=== PATIENT | female | born 1955 | race Caucasian/White ===

== ENCOUNTER 2016-09-16 05:36 | Inpatient (IN) | payer OTHER ==
[~2016-09-16] VITALS: Ht 172.7 cm; Wt 84.5 kg
[~2016-09-16 05:36] MED LIST: ALPR0.25 PO; AMT25 PO; ASPI-390 PO; CITA40TA12 PO; CLIN300C2 PO; HYDR-5688 PO; IBUP-1459 PO; MULT-160 PO; PRED10TA PO; PROM25TA PO
[2016-09-16] MEDS ORDERED: SODIUM CHLORIDE 0.9% 1000ML 1,000 ML IV STA (05:56)
[2016-09-16] MEDS ORDERED: SODIUM CHLORIDE 0.9% 500ML 500 ML IV STA ×2 (05:56→06:38)
[2016-09-16] MEDS ORDERED: SODIUM CHLORIDE 0.9% 1000ML 1,000 ML IV SCH (06:00)
[2016-09-16] MEDS: PANTOprazole INJ 40 MG in DEXTROSE 5% 100ML IV SCH ×4 (06:13→22:15)
[2016-09-16 06:14] LABS: ISTAT CREATININE 1.1 mg/dl (0.6-1.3); ISTAT IONIZED CALCIUM 1.2 mmol/l (1.12-1.32)
[2016-09-16] MEDS ORDERED: PANTOprazole INJ 80 MG in DEXTROSE 5% 100ML IV SCH (06:15)
--- NOTE | 2016-09-16 06:15 | EMERGENCY ROOM VISIT NOTE ---
ED Visit Note First contact with patient: 05:35 Patient seen by the physician advertising assistant manager, seen primarily by me, CT reviewed agree with workup currently for an alteration in mental status in this patient who was last seen normal 12 hours prior. Due to that timeframe and the unknown etiology of the alteration mental status patient is not currently a TPA candidate. We will continue to evaluate for alteration in mental status with admission for the same Problem List Medical Problems: (1) History of - section Status: Resolved (2) Migraine Status: Chronic Current/Historical Medications Scheduled Amitriptyline Hcl (Elavil *), 25 TABLET PO QHS Citalopram Hydrobromide (Celexa), 40 MG PO HS Clindamycin Hcl (Cleocin), 300 MG PO QID Hydrocodone/Acetaminophen 5MG/325MG ([place] 5MG/325MG), 1 TABLET PO Q4H Ibuprofen (Motrin), 800 MG PO TID Multiple Vitamins W/ Calcium (One-A-Day Womens Formula), 1 TAB PO DAILY Prednisone Tab (Prednisone), 10 MG PO UD Promethazine (Phenergan), 25 MG PO Q4-6HR PRN Scheduled PRN Alprazolam (Xanax), 0.125-0.25 MG PO for Migraine Crlipjc-Iugykhpaneydc-Jhxghzja (Excedrin Migraine), 1-2 TABS PO DAILY PRN for Migraine Allergies Coded Allergies: Penicillins (Verified Allergy, Mild, SWELLING BREATHING STOPS, 02/13/16) Acetazolamide (Unverified Allergy, Unknown, RASH/HIVES, 02/13/16) Molds and Smuts (Verified Allergy, Unknown, UNKNOWN, 02/13/16) Sumatriptan (Verified Adverse Reaction, Unknown, flushing,heart racing, ) Vital Signs Date Time Temp Pulse Resp B/P (MAP) Pulse Ox O2 Delivery O2 Flow Rate FiO2 09/16/16 06:00 94 Room Air 09/16/16 06:00 94 Room Air 09/16/16 05:49 36.5 104 22 180/100 94 Room Air Laboratory Results Test 09/16/16 05:23 09/16/16 05:56 09/16/16 06:00 09/16/16 06:01 Creatine Kinase MB Ratio (0-3.0) Bedside Hemoglobin 15.0 g/dl (12.0-16.0) Bedside Hematocrit 44 % (37-47) Bedside Sodium 140 mEq/L (135-144) Bedside Potassium 3.9 mEq/L (3.3-5.0) Bedside Chloride 102 mEq/L (101-112) Bedside Total CO2 23 mEq/l (24-31) Anion Gap 20.0 mmol/L (16-25) Bedside Blood Urea Nitrogen 16 mg/dl (7-18) Bedside Creatinine 1.1 mg/dl (0.6-1.3) Bedside Glucose (other) 134 mg/dl (70-99) Bedside Ionized Calcium (Anne-Marie) 1.20 mmol/l (1.12-1.32) Departure Information Referrals Hany Glaser M.D. (PCP) Patient Instructions [facility]
[2016-09-16 06:16] LABS: COMPLETE YES; HEMATOCRIT 41.1 % (37-47); IG% 0.2 %; LYMPH % 6.9 %; LYMPH ABS # 0.68 K/uL (1.2-3.4); MEAN CORPUSCULAR HEMOGLOBIN 33.2 pg (25-34); MEAN CORPUSCULAR HGB CONC 34.5 g/dl (32-36); MEAN PLATELET VOLUME 9.7 fL (7.4-10.4); NEUT % 86.9 %; PLATELET COUNT 221 K/uL (130-400); RED BLOOD COUNT 4.28 M/uL (4.2-5.4); WHITE BLOOD COUNT 9.86 K/uL (4.8-10.8)
[2016-09-16] MEDS ORDERED: METRONIDAZOLE 500MG / 100ML NSS IV STA (06:16)
[2016-09-16] MEDS ORDERED: LEVAQUIN 750MG / 150ML D5W IV STA (06:16)
[2016-09-16] MEDS ORDERED: NALOXONE HCL 0.4 MG/1 ML VIAL/CARP IV STA (06:27)
[2016-09-16 06:28] LABS: ALT/SGPT 18 U/L (12-78); AST/SGOT 10 U/L (15-37); BLOOD UREA NITROGEN 16 mg/dl (7-18); BUN/CREATININE RATIO 11.4 (10-20); CALCIUM 9.2 mg/dl (8.5-10.1); CARBON DIOXIDE 22 mmol/L (21-32); CHLORIDE 105 mmol/L (98-107); GLUCOSE 134 mg/dl (70-99); MAGNESIUM 2.2 mg/dl (1.8-2.4); SODIUM 140 mmol/L (136-145)
[2016-09-16 06:30] LABS: ACETAMINOPHEN < 2 ug/ml (10-30)
[2016-09-16 06:36] LABS: ALKALINE PHOSPHATASE 105 U/L (45-117); CKMB/CK RATIO 1.7 (0-3.0); THYROID STIMULATING HORMONE 0.476 uIu/ml (0.300-4.500)
[2016-09-16 06:41] LABS: INR 0.9 (0.9-1.1); PROTHROMBIN TIME (PATIENT) 10.1 SECONDS (9.0-12.0)
[2016-09-16] MEDS ORDERED: IBUP200C11 PO (07:02)
[2016-09-16] MEDS ORDERED: AMIT25TA9 PO (07:04)
[2016-09-16] MEDS ORDERED: MIRT30TA2 PO (07:06)
[2016-09-16 07:12] LABS: VEN BLD GAS O2 SATURATION 65.1 %; VEN BLOOD GAS BASE EXCESS -3.2 mmol/L
--- NOTE | 2016-09-16 07:35 | DIAGNOSTIC IMAGING REPORT ---
CHEST ONE VIEW PORTABLE CLINICAL HISTORY: Chest pain. Altered mental status. COMPARISON STUDY: Chest CT September 25, 2015. FINDINGS: There is mild elevation of the right hemidiaphragm. No pneumothorax or pleural effusion is present. There is no consolidation. Cardiomediastinal silhouette is normal. Mild interstitial thickening may be chronic. IMPRESSION: 1. Mild interstitial thickening, likely chronic. 2. Mild elevation of the right hemidiaphragm. Electronically signed by: Ildefonso Alarcon M.D. 09/16/2016 7:34 AM Dictated Date/Time: 09/16/2016 7:31 AM
[2016-09-16 07:37] LABS: URINE APPEARANCE CLOUDY (CLEAR); URINE BILIRUBIN NEG (NEG); URINE COLOR YELLOW; URINE NITRITE NEG (NEG); URINE SPECIFIC GRAVITY 1.016 (1.000-1.030); UROBILINOGEN NEG (NEG)
[2016-09-16 07:38] LABS: MANUAL MICROSCOPIC REQUIRED? NO; REVIEW REQ? YES
[2016-09-16 07:52] LABS: ZZURINE CULT IF INDIC CATH YES
[2016-09-16 07:53] LABS: BENZODIAZEPINE, URINE NEG (NEG); COCAINE,URINE NEG (NEG); PHENCYCLIDINE, URINE POS (NEG)
[2016-09-16 08:25] VITALS: O2SAT 95; Ht 172.7 cm; Wt 84.5 kg
[2016-09-16] MEDS ORDERED: HALOPERIDOL LACTATE 5 MG/ML 1 ML VIAL IM PRN (08:30)
[2016-09-16] MEDS ORDERED: PHARMACIST DISCHARGE MED REC CONSULT PRN (08:30)
[2016-09-16] MEDS ORDERED: ONDANSETRON INJ 2 MG/ML 2 ML VIAL IV PRN (08:30)
[2016-09-16] MEDS ORDERED: HALOPERIDOL LACTATE 5 MG/ML 1 ML VIAL ONE (08:34)
--- NOTE | 2016-09-16 08:54 | DIAGNOSTIC IMAGING REPORT ---
CT OF THE HEAD WITHOUT CONTRAST CLINICAL HISTORY: Altered mental status. COMPARISON STUDY: Head CT January 22, 2008. CT DOSE: 614.27 mGy.cm TECHNIQUE: Helical axial images of the head were obtained without IV contrast. Automated exposure control was utilized for the study. FINDINGS: No acute intracranial hemorrhage, midline shift or mass effect is present. Evaluation is mildly compromised due to streak artifact from a left earring. Ventricular system is normal. Basilar cisterns are patent. There are no extra-axial collections. There are no findings to suggest acute dural sinus thrombosis or acute territorial infarct. There is a suspected mucous retention cyst within the left maxillary sinus. There are a few opacified left mastoid air cells. There are no significant calvarial abnormalities. IMPRESSION: No acute intracranial findings. Electronically signed by: Ildefonso Alarcon M.D. 09/16/2016 8:53 AM Dictated Date/Time: 09/16/2016 8:50 AM
[2016-09-16 08:55] VITALS: O2SAT 95
--- NOTE | 2016-09-16 08:58 | History and Physical ---
History & Physical Date & Time of Service: Sep 16, 2016 at 08:40 Chief Complaint: Altered Mental Status Primary Care Physician: Hany Glaser M.D. History of Present Illness Source: spouse, clinic records 61 year old female with history of Chronic Migraine, Depression, presenting with altered mental status noted early this morning. Patient follows with Dr. Glaser for PCP. History obtained from Al at the bedside as patient was confused. Per , patient usually has migraine headaches in the afternoon for which she takes Advil Migraine. Yesterday afternoon, came home from work to have lunch with the patient. She was apparently doing ok at that time. At 2:30pm, patient called her as she was feeling she was having a panic attack. advised her to take Xanax if she has any. He then came home in the evening and noted that the patient was sound asleep. At 430am this morning, heard the patient moaning, calling out from her room. He found her staring, eyes wide open, with dried vomit around her mouth and neck, with some tinge of blood. She was slurring her words and was disoriented. No facial drooping, patient was moving extremities equally. Patient noted to report pain on her right neck and right shoulder. He then summoned the EMS. At the ER, CT head negative for acute process. CXR also unrevealing. She was given Protonix drip, Levaquin, IV fluids. On my exam, patient was awake, but very irritable, occasionally cursing, uncoooperative. Declines full physical exam. She is oriented to person and place, not to time. Tangential thought process. Repeatedly says "i need to pee", "get the bed rivers off me". Full ROS cannot be assessed as patient was uncooperative. states he did not notice any other symptoms lately except patient has been having depressive symptoms since their daughter last year. Denies suidical ideations from the patient. Past Medical/Surgical History Medical Problems: (1) History of - section Status: Resolved (2) Migraine Status: Chronic Family History Cancer Diabetes mellitus Heart disease Hypertension Kidney disease Kidney stones Social History Smoking Status: Never Smoker Alcohol Use: none Drug Use: marijuana (occasional) Marital Status: Housing status: lives with family Occupational Status: employed Immunizations History of Influenza Vaccine: N/A History of Tetanus Vaccine?: Yes History of Pneumococcal: No History of Hepatitis B Vaccine: Yes Multi-Drug Resistant Organisms History of MDRO: No Allergies Coded Allergies: Penicillins (Verified Allergy, Mild, SWELLING BREATHING STOPS, 02/13/16) Acetazolamide (Unverified Allergy, Unknown, RASH/HIVES, 02/13/16) Molds and Smuts (Verified Allergy, Unknown, UNKNOWN, 02/13/16) Sumatriptan (Verified Adverse Reaction, Unknown, flushing,heart racing, ) Home Medications Scheduled Amitriptyline Hcl (Elavil), 25 MG PO HS Citalopram Hydrobromide (Celexa), 40 MG PO HS Hydrocodone/Acetaminophen 5MG/325MG ([place] 5MG/325MG), 1 TABLET PO Q4H Mirtazapine Soltab (Remeron Soltab), 30 MG PO HS Multiple Vitamins W/ Calcium (One-A-Day Womens Formula), 1 TAB PO DAILY Scheduled PRN Alprazolam (Xanax), 0.25 MG PO TID PRN for Anxiety Ibuprofen (Advil Migraine), 400 MG PO Q8 PRN for Pain Promethazine (Phenergan), 25 MG PO Q6H PRN for Nausea or Vomiting Review of Systems cannot be assessed as patient declines Physical Exam Vital Signs Date Time Temp Pulse Resp B/P (MAP) Pulse Ox O2 Delivery O2 Flow Rate FiO2 09/16/16 07:56 87 22 140/85 97 Room Air 09/16/16 07:38 89 20 147/78 95 Room Air 09/16/16 07:18 86 18 135/75 92 Room Air 09/16/16 07:00 88 16 134/69 93 Room Air 09/16/16 06:17 96 22 151/81 93 Room Air 09/16/16 06:00 94 Room Air 09/16/16 06:00 94 Room Air 09/16/16 05:50 104 09/16/16 05:49 36.5 104 22 180/100 94 Room Air General Appearance: WD/WN, no apparent distress, + pertinent finding (restless , uncooperative) Head: normocephalic, atraumatic Eyes: normal inspection, PERRL, EOMI, sclerae normal ENT: normal ENT inspection, hearing grossly normal, + pertinent finding (dry oral mucosa) Neck: + pertinent finding (patient declined) Respiratory/Chest: + pertinent finding (declined) Cardiovascular: + pertinent finding (declined) Abdomen/GI: + pertinent finding (declined) Back: + pertinent finding (declined) Extremities/Musculoskelatal: + pertinent finding (declined) Neurologic/Psych: job setter honing II-XII nml as tested, no motor/sensory deficits, alert, + pertinent finding (not oriented; irritable) Skin: normal color Diagnostics Laboratory Results Results Past 24 Hours Test 09/16/16 05:23 09/16/16 06:00 09/16/16 06:01 09/16/16 06:12 Range/Units Sodium Level 140 136-145 mmol/L Potassium Level 4.0 3.5-5.1 mmol/L Chloride Level 105 98-107 mmol/L Carbon Dioxide Level 22 21-32 mmol/L Anion Gap 13.0 20.0 16-25 mmol/L Blood Urea Nitrogen 16 7-18 mg/dl Creatinine 1.40 0.60-1.20 mg/dl Est Creatinine Clear Calc Drug Dose 47.7 ml/min Estimated GFR () 46.9 Estimated GFR (Non- 40.5 BUN/Creatinine Ratio 11.4 10-20 Random Glucose 134 70-99 mg/dl Calcium Level 9.2 8.5-10.1 mg/dl Magnesium Level 2.2 1.8-2.4 mg/dl Total Bilirubin 0.5 0.2-1 mg/dl Direct Bilirubin < 0.1 0-0.2 mg/dl Aspartate Amino Transf (AST/SGOT) 10 15-37 U/L Alanine Aminotransferase (ALT/SGPT) 18 12-78 U/L Alkaline Phosphatase 105 45-117 U/L Total Creatine Kinase 86 26-192 U/L Creatine Kinase MB 1.5 0.5-3.6 ng/ml Creatine Kinase MB Ratio 1.7 0-3.0 Troponin I < 0.015 0-0.045 ng/ml Total Protein 8.1 6.4-8.2 gm/dl Albumin 4.0 3.4-5.0 gm/dl Lipase 299 73-393 U/L Thyroid Stimulating Hormone (TSH) 0.476 0.300-4.500 uIu/ml Salicylates Level 8.2 2.8-20 mg/dl Acetaminophen Level < 2 10-30 ug/ml White Blood Count 9.86 4.8-10.8 K/uL Red Blood Count 4.28 4.2-5.4 M/uL Hemoglobin 14.2 12.0-16.0 g/dL Hematocrit 41.1 37-47 % Mean Corpuscular Volume 96.0 80-100 fL Mean Corpuscular Hemoglobin 33.2 25-34 pg Mean Corpuscular Hemoglobin Concent 34.5 32-36 g/dl Platelet Count 221 130-400 K/uL Mean Platelet Volume 9.7 7.4-10.4 fL Neutrophils (%) (Auto) 86.9 % Lymphocytes (%) (Auto) 6.9 % Monocytes (%) (Auto) 6.0 % Eosinophils (%) (Auto) 0.0 % Basophils (%) (Auto) 0.0 % Neutrophils # (Auto) 8.57 1.4-6.5 K/uL Lymphocytes # (Auto) 0.68 1.2-3.4 K/uL Monocytes # (Auto) 0.59 0.11-0.59 K/uL Eosinophils # (Auto) 0.00 0-0.5 K/uL Basophils # (Auto) 0.00 0-0.2 K/uL RDW Standard Deviation 46.3 36.4-46.3 fL RDW Coefficient of Variation 13.3 11.5-14.5 % Immature Granulocyte % (Auto) 0.2 % Immature Granulocyte # (Auto) 0.02 0.00-0.02 K/uL Prothrombin Time 10.1 9.0-12.0 SECONDS Prothromb Time International Ratio 0.9 0.9-1.1 Activated Partial Thromboplast Time 26.4 21.0-31.0 SECONDS Partial Thromboplastin Ratio 1.0 Ethyl Alcohol mg/dL < 3.0 0-3 mg/dl Bedside Hemoglobin 15.0 12.0-16.0 g/dl Bedside Hematocrit 44 37-47 % Bedside Sodium 140 135-144 mEq/L Bedside Potassium 3.9 3.3-5.0 mEq/L Bedside Chloride 102 101-112 mEq/L Bedside Total CO2 23 24-31 mEq/l Bedside Blood Urea Nitrogen 16 7-18 mg/dl Bedside Creatinine 1.1 0.6-1.3 mg/dl Bedside Glucose (other) 134 70-99 mg/dl Bedside Ionized Calcium (Anne-Marie) 1.20 1.12-1.32 mmol/l Bedside Glucose 127 70-90 mg/dl Test 09/16/16 06:16 09/16/16 06:19 09/16/16 07:00 09/16/16 07:10 Range/Units Bedside Troponin I < 0.030 0-0.045 ng/ml Bedside Prothrombin Time INR 0.9 0.9-1.1 Venous Blood pH 7.38 7.36-7.41 Venous Blood Partial Pressure CO2 37 38.0-50.0 mmHg Venous Blood Partial Pressure O2 32 mmHg Venous Blood HCO3 22 mmol/L Venous Blood Oxygen Saturation 65.1 % Venous Blood Base Excess -3.2 mmol/L Urine Color YELLOW Urine Appearance CLOUDY CLEAR Urine pH 5.0 4.5-7.5 Urine Specific [place] 1.016 1.000-1.030 Urine Protein NEG NEG Urine Glucose (UA) NEG NEG Urine Ketones TRACE NEG Urine Occult Blood NEG NEG Urine Nitrite NEG NEG Urine Bilirubin NEG NEG Urine Urobilinogen NEG NEG Urine Leukocyte Esterase TRACE NEG Urine WBC (Auto) 10-30 0-5 /hpf Urine RBC (Auto) 0-4 0-4 /hpf Urine Hyaline Casts (Auto) 1-5 0-5 /lpf Urine Epithelial Cells (Auto) 10-20 0-5 /lpf Urine Bacteria (Auto) 1+ NEG Urine Renal Epithelial Cells 0-5 /lpf Urine Pathogenic Casts See comments 0 /lpf Urine Opiates Screen POS NEG Urine Methadone, Qualitative NEG NEG Urine Barbiturates NEG NEG Urine Phencyclidine (PCP) Level POS NEG Ur Amphetamine/Methamphetamine NEG NEG MDMA (Ecstasy) Screen POS NEG Urine Benzodiazepines Screen NEG NEG Urine Cocaine Metabolite NEG NEG Urine Marijuana (THC) NEG NEG Microbiology Results 09/16/16 Urine Culture, Received Pending Diagnostic Radiology as per H&P EKG sinus tachycardia, no signs of acute infarct or ischemia Impression Assessment and Plan 61 year old female with history of Chronic Migraine, Depression, presenting with altered mental status noted early this morning. ALTERED MENTAL STATUS EPISODE OF SLURRED SPEECH R/O CVA CT head negative MRI brain ordered will consult Neurology R/O SEIZURE check EEG seizure precautions POSSIBLE DELIRIUM FROM MEDICATIONS Urine Drug Screen: (+) for opiate, PCP, MDMA (patient takes Citalopram, Mirtazipine, Amitryptiline) Haldol PRN IV fluids, HOLD psychogenic meds will consult Psych for Depression R/O ASPIRATION CT chest NPO for now R/O GI BLEED monitor Hg Protonix drip IV fluids ACUTE RENAL FAILURE IV NSS monitor crea MIGRAINE HEADACHE, CHRONIC Neuro consulted DEPRESSION patient has been having difficulty with depressive symptoms since daughter last month no suicidal ideations per patient takes Citalopram, Mirtazipine, Amitryptiline prescribed by PCP will consult Psych DVT PROPH SCDs only until gi bleed ruled out FULL CODE DISPOSITION pending lives at home with VTE Prophylaxis VTE Risk Assessment Done? Y/N: Yes Risk Level: Moderate
[2016-09-16 09:05] VITALS: BP 135/73; PULSE 82; O2SAT 98
[2016-09-16 09:26] LABS: ESTIMATED AVERAGE GLUCOSE 114 mg/dl; HA1C FLAG Normal (Normal)
[2016-09-16] MEDS: SODIUM CHLORIDE 0.9% 1000ML 1,000 ML IV SCH (09:35)
--- NOTE | 2016-09-16 11:15 | DIAGNOSTIC IMAGING REPORT ---
MRI OF THE BRAIN WITHOUT CONTRAST CLINICAL HISTORY: Altered mental status. Evaluate for stroke. COMPARISON STUDY: Head CT September 16, 2016. TECHNIQUE: Utilizing a 1.5 Latasha magnet and dedicated coil, multiplanar, multiecho imaging of the brain was performed without IV contrast. The patient was unable to complete the entire exam. FINDINGS: There are no areas of restricted diffusion. No acute intracranial hemorrhage, midline shift or mass effect is present. Ventricular system is normal for age. Basilar cisterns are patent. There are no extra-axial collections. No intracranial masses identified on this unenhanced examination. A 1.8 cm left maxillary sinus mucous retention cyst or polyp is noted. This was present on head CT of January 22, 2008. A few punctate white matter T2 hyperintense foci suggest minimal small vessel disease. IMPRESSION: 1. No acute intracranial findings. 2. Unremarkable MRI of the brain for age. 3. Patient unable to complete entire MRI although this study is considered diagnostic. Electronically signed by: Ildefonso Alarcon M.D. 09/16/2016 11:14 AM Dictated Date/Time: 09/16/2016 11:11 AM
[2016-09-16] MEDS: ACETAMINOPHEN 325 MG TAB PO PRN (11:20)
[2016-09-16 11:37] VITALS: BP 158/102; PULSE 124; TEMP 36.6
--- NOTE | 2016-09-16 11:40 | DIAGNOSTIC IMAGING REPORT ---
CT OF THE CHEST WITHOUT IV CONTRAST CLINICAL HISTORY: Confusion. Vomiting. Possible aspiration. COMPARISON STUDY: Chest CT September 25, 2015 and chest radiograph performed earlier today. CT DOSE: 1563.80 mGy.cm TECHNIQUE: Axial images of the chest were obtained without IV contrast. Images were reviewed in the axial, sagittal, and coronal planes. IV contrast was not administered for this examination. FINDINGS: No enlarged axillary, mediastinal or hilar lymph nodes are identified. Size of the heart is normal. There is no pericardial effusion. There is a trace right pleural effusion. Mild subpleural opacities within the lower lobe suggest subsegmental atelectasis. There is no consolidation to suggest pneumonia. There is no pneumothorax. There is moderate upper lobe predominant emphysema. A 7 mm right upper lobe nodule shown image 87 of [address] of September 25, 2015. No new nodules are present. Central airways are patent. There is a subacute to chronic sternal fracture. Upper abdomen is unremarkable. IMPRESSION: 1. No consolidation to suggest pneumonia. Mild subpleural bilateral lower lobe opacities suggest subsegmental atelectasis. Trace right pleural effusion. 2. Moderate to severe upper lobe predominant emphysema. 3. No change in a 7 mm right upper lobe irregular nodule since exam of September 25, 2015. A follow-up CT in 6 months to ensure stability is recommended. Electronically signed by: Ildefonso Alarcon M.D. 09/16/2016 11:38 AM Dictated Date/Time: 09/16/2016 11:32 AM
--- NOTE | 2016-09-16 12:18 | NEUROLOGY CONSULTATION ---
DATE OF CONSULTATION: 09/16/2016 DATE OF CONSULTATION: 09/16/2016. REQUESTED BY: Dr. Eduardo. HISTORY OF PRESENT ILLNESS: aMrcus is 61 years old, apparently a patient of Dr. Hany Glaser and presented to the hospital this morning with a history of confusion, lethargy, having been found by her minimally responsive with evidence of vomiting and some tinges of blood around her mouth and neck. Apparently yesterday afternoon while her was at work she called him and said she was having a panic attack. prior to that she was having a migraine like headache and probably took some medications He advised her to take some Xanax. When he arrived in the evening she was sound asleep and she did not attempt to awaken her. At 4:30 in the morning, apparently he heard her moaning, calling out from her room, and found her staring, her eyes wide open with dried vomit in her mouth and neck and she then complained of some pain in her neck and right shoulder. EMS was summoned and she was brought to the ER. She was intermittently uncooperative, irritable, cursing and would not allow anyone really to examine her in any complete fashion. She knew who she was, she was not oriented to time, thought processes are quite tangential and she apparently kept stating she needed to pee and needed to get bedpan off her. She has improved over the course of the last several hours apparently, but still is quite irritable insisting that she have some water, fumbling with the bed sheets and refusing to answer questions. When I was in the room I tried to establish who her primary care physician might be and she told me that she did not see him anymore and would not give me his name. She then spoke to the nurse and I and expressed lack of understanding of why we were treating her this way and she did not know why she was talking to us as we were both "dolls". The unfortunately is not in the room and at this point I am relying totally on the recorded history from Dr. Eduardo and the ER. PAST MEDICAL HISTORY: Reveals a section, chronic migraines and apparently some ongoing depression and grief reaction after her daughter's within the past month or so. FAMILY HISTORY: Positive for cancer, diabetes, heart disease, hypertension and kidney stones. SOCIAL HISTORY: Reveals her to be a never smoker. She does not consume ethanol. She occasionally has some marijuana. She is , lives with her family and is employed. Immunizations are up-to-date. There is no history of MRSA or other drug resistant organisms. ALLERGIES: REPORTED TO PENICILLINS, DIAMOX, MOLDS. MEDICATIONS AT HOME: Include Elavil 25 mg, Celexa 40 mg, hydrocodone 5/325 every 4 hours as needed, Remeron, multivitamins. PRN medications include Xanax, ibuprofen and promethazine. REVIEW OF SYSTEMS: Could not be obtained other than the fact that the felt she had been increasingly depressed recently. Details of this remains unclear. Certainly the patient denies any such feelings today but then denies most of any thing we inquire about. PHYSICAL EXAMINATION: VITAL SIGNS: On exam, her blood pressure 140/85, pulse was 87, respirations 22. GENERAL: She was awake and alert, but very irritable, restless, and uncooperative and she remains this way now. HEAD, EYES, EARS, NOSE, AND THROAT: Examination was grossly normal, although her ability to cooperate was limited. LUNGS: Apparently clear, although she really would not permit further examination by Dr. Eduardo or by the ER staff. The remainder of the examination could not be completed. NEUROLOGIC: Today neurologically she really will not let me do much of an exam. She has clear speech, her speech content is tangential, inappropriate. She knows the year. She knows the month. She can tell me the date. She says she is in "[facility]". She will not tell me the name of her family physician, but states that he apparently is not seeing her because she "takes her medications too often". When I try to get more detail on this she diverted me to another subject and refused to answer. Cranial nerves appear to be grossly intact. Eye movements are normal. Speech is clear. I do not see any facial asymmetry. She seems to move all extremities well but detailed strength testing, reflex testing and sensory examination is certainly impossible in this setting. Thus far laboratory studies have shown urine positivity for multiple substances, but she is on a number of agents chronically that would create this. There is also evidence to suggest possible urinary tract infection with a number of white cells in the urine, but cultures are pending. Blood count and chemistry screens are unremarkable. Imaging studies including CAT scan are normal and preliminary view of the MRI imaging by myself suggests no issues. She is having a CT of the chest to be sure there is no aspiration. At this point, neurology does not have a lot more off offer until she is more cooperative and capable of being examined. Imaging studies do not look like there is any acute process going on. She is afebrile. There is no nuchal rigidity. There has been no recent exposure to infections that I can determine and my suspicions are that this is a toxic delirium, possibly related to urinary tract infection but possibly related to multiple drug ingestion as well. Psychiatry is going to have to get involved. We will get re-involved tomorrow, perhaps at a time when she is a little more awake, alert, and cooperative. I suppose this could be confusional migraine as apparently she did start this off with a migraine yesterday, but this would be a diagnosis of exclusion at this time. The EEG is being requested, it is probably not going to get done over the weekend as her level of cooperation right now would not permit it and I think we will hold off until she is calmer and we can get a tracing done with few or no artifacts. I will check with her tomorrow. NIVIA
[2016-09-16] MEDS ORDERED: CIPROFLOXACIN / D5W 400 MG in PREMIXED IN D5W 200 ML IV ONE (12:37)
[2016-09-16] MEDS ORDERED: HALOPERIDOL LACTATE 5 MG/ML 1 ML VIAL IV PRN (15:45)
[2016-09-16] MEDS ORDERED: BENZTROPINE MESYLATE 1 MG/ML 2 ML AMP IV PRN (15:45)
--- NOTE | 2016-09-16 16:29 | Psychiatric Consultation ---
Consultation Date of Consultation Sep 16, 2016. Identifying Data Marcus Fischer is a 61-year-old female who currently lives in with . The patient was brought to the ED by the ambulance. Information provided by the patient is considered to be unreliable due to her current state of confusion but was present to provide collateral history. Chief Complaint "This is me, that was her". History of Present Illness Patient is a 61 yo female who presented to the [facility] ED by ambulance. Her had met with her at home yesterday at noon and patient was clear and oriented and doing well at that time. He admits that both of them have been grieving of 24 yo daughter who of a heroin overdose 10/04/2015 and anniversary date is coming up. Patient called around 2:30 pm yesterday and reported that she was having a panic attack and he suggested that she take a Xanax if she had one. came home in evening and she was asleep. He checked on her around 4am today and found her with blood tinged vomit around her mouth and she appeared very confused. Ambulance called and transported to hospital ED. Patient reports that she met with Dr. Koenig (outpatient PCP clinic) 3 weeks ago and something found in her urine that she is unsure of and she was "abruptly cut off Xanax and Hydrocodone". Due to feelings of Panic attack that she had yesterday around 2:30pm she took and assortment of medications that date back to 2012 that she had in drawer beside bed including 1/2 bottle of Wellbutrin and uncertain amount of Prednisone and "a little white pill". On further questioning she admits that little white pill may have been Lorazepam but she is uncertain. She denies that this was a suicide attempt "I want to see my daughter in [facility]". Patient does admit that on Sunday and Sunday earlier in the week she had felt hopeless and had suicidal thoughts but without a plan. Admits that she has felt hopeless without her daughter around. She has been prescribed Citalopram, Mirtazepine and Amitriptyline through her PCP. "I can hear people. They're not voices. They won't let me have the information. Past Psychiatric History Current OP Treatment: no current treatment Prior OP Treatment: no prior treatment Prior Psych Hospitalizations: none Access to a Gun: No Suicide Attempts: No Past Medical/Surgical History History of Concussion/Seizure: No Allergies Allergies: Coded Allergies: Penicillins (Verified Allergy, Mild, SWELLING BREATHING STOPS, 02/13/16) Acetazolamide (Unverified Allergy, Unknown, RASH/HIVES, 02/13/16) Molds and Smuts (Verified Allergy, Unknown, UNKNOWN, 02/13/16) Sumatriptan (Verified Adverse Reaction, Unknown, flushing,heart racing, ) Home Medications Scheduled Amitriptyline Hcl (Elavil), 25 MG PO HS Citalopram Hydrobromide (Celexa), 40 MG PO HS Hydrocodone/Acetaminophen 5MG/325MG ([place] 5MG/325MG), 1 TABLET PO Q4H Mirtazapine Soltab (Remeron Soltab), 30 MG PO HS Multiple Vitamins W/ Calcium (One-A-Day Womens Formula), 1 TAB PO DAILY Scheduled PRN Alprazolam (Xanax), 0.25 MG PO TID PRN for Anxiety Ibuprofen (Advil Migraine), 400 MG PO Q8 PRN for Pain Promethazine (Phenergan), 25 MG PO Q6H PRN for Nausea or Vomiting Family History Cancer Diabetes mellitus Heart disease Hypertension Kidney disease Kidney stones History of Substance Abuse: Yes (24 yo daughter of heroin overdose 10/04/15 ) Psychiatric History: Yes (mother depression) Alcohol Use Alcohol Use In Past 12 Months: No Smoking Use Smoking Status: Never Smoker Personal History Relationship History: Children: 24 yo daughter of heroin overdose 10/04/15 Legal History: none Review of Systems Psych: denies symptoms other than stated above Constitutional: tired Cardiovascular: denied GI: denied Neurologic: frequent migraine headaches Remainder of 10 body systems also reviewed and denied other than noted above. Examination Vital Signs Vital Signs Past 12 Hours Date Time Temp Pulse Resp B/P (MAP) Pulse Ox O2 Delivery O2 Flow Rate FiO2 09/16/16 12:00 Room Air 09/16/16 11:37 36.6 124 18 158/102 (120) Room Air 09/16/16 09:05 82 16 135/73 (93) 98 Room Air 09/16/16 08:55 93 22 151/81 95 09/16/16 08:43 94 20 155/69 95 Room Air 09/16/16 08:25 95 Room Air 09/16/16 07:56 87 22 140/85 97 Room Air 09/16/16 07:38 89 20 147/78 95 Room Air 09/16/16 07:18 86 18 135/75 92 Room Air 09/16/16 07:00 88 16 134/69 93 Room Air 09/16/16 06:17 96 22 151/81 93 Room Air 09/16/16 06:00 94 Room Air 09/16/16 06:00 94 Room Air 09/16/16 05:50 104 09/16/16 05:49 36.5 104 22 180/100 94 Room Air Laboratory Results Last 24 Hours Test 09/16/16 05:23 09/16/16 06:00 09/16/16 06:01 09/16/16 06:12 Sodium Level 140 mmol/L Potassium Level 4.0 mmol/L Chloride Level 105 mmol/L Carbon Dioxide Level 22 mmol/L Anion Gap 13.0 mmol/L 20.0 mmol/L Blood Urea Nitrogen 16 mg/dl Creatinine 1.40 mg/dl Est Creatinine Clear Calc Drug Dose 47.7 ml/min Estimated GFR () 46.9 Estimated GFR (Non- 40.5 BUN/Creatinine Ratio 11.4 Random Glucose 134 mg/dl Estimated Average Glucose 114 mg/dl Hemoglobin A1c 5.6 % Calcium Level 9.2 mg/dl Magnesium Level 2.2 mg/dl Total Bilirubin 0.5 mg/dl Direct Bilirubin < 0.1 mg/dl Aspartate Amino Transf (AST/SGOT) 10 U/L Alanine Aminotransferase (ALT/SGPT) 18 U/L Alkaline Phosphatase 105 U/L Total Creatine Kinase 86 U/L Creatine Kinase MB 1.5 ng/ml Creatine Kinase MB Ratio 1.7 Troponin I < 0.015 ng/ml Total Protein 8.1 gm/dl Albumin 4.0 gm/dl Lipase 299 U/L Thyroid Stimulating Hormone (TSH) 0.476 uIu/ml Salicylates Level 8.2 mg/dl Acetaminophen Level < 2 ug/ml White Blood Count 9.86 K/uL Red Blood Count 4.28 M/uL Hemoglobin 14.2 g/dL Hematocrit 41.1 % Mean Corpuscular Volume 96.0 fL Mean Corpuscular Hemoglobin 33.2 pg Mean Corpuscular Hemoglobin Concent 34.5 g/dl Platelet Count 221 K/uL Mean Platelet Volume 9.7 fL Neutrophils (%) (Auto) 86.9 % Lymphocytes (%) (Auto) 6.9 % Monocytes (%) (Auto) 6.0 % Eosinophils (%) (Auto) 0.0 % Basophils (%) (Auto) 0.0 % Neutrophils # (Auto) 8.57 K/uL Lymphocytes # (Auto) 0.68 K/uL Monocytes # (Auto) 0.59 K/uL Eosinophils # (Auto) 0.00 K/uL Basophils # (Auto) 0.00 K/uL RDW Standard Deviation 46.3 fL RDW Coefficient of Variation 13.3 % Immature Granulocyte % (Auto) 0.2 % Immature Granulocyte # (Auto) 0.02 K/uL Prothrombin Time 10.1 SECONDS Prothromb Time International Ratio 0.9 Activated Partial Thromboplast Time 26.4 SECONDS Partial Thromboplastin Ratio 1.0 Ethyl Alcohol mg/dL < 3.0 mg/dl Bedside Hemoglobin 15.0 g/dl Bedside Hematocrit 44 % Bedside Sodium 140 mEq/L Bedside Potassium 3.9 mEq/L Bedside Chloride 102 mEq/L Bedside Total CO2 23 mEq/l Bedside Blood Urea Nitrogen 16 mg/dl Bedside Creatinine 1.1 mg/dl Bedside Glucose (other) 134 mg/dl Bedside Ionized Calcium (Anne-Marie) 1.20 mmol/l Bedside Glucose 127 mg/dl Test 09/16/16 06:16 09/16/16 06:19 09/16/16 07:00 09/16/16 07:10 Bedside Troponin I < 0.030 ng/ml Bedside Prothrombin Time INR 0.9 Venous Blood pH 7.38 Venous Blood Partial Pressure CO2 37 mmHg Venous Blood Partial Pressure O2 32 mmHg Venous Blood HCO3 22 mmol/L Venous Blood Oxygen Saturation 65.1 % Venous Blood Base Excess -3.2 mmol/L Urine Color YELLOW Urine Appearance CLOUDY Urine pH 5.0 Urine Specific [place] 1.016 Urine Protein NEG Urine Glucose (UA) NEG Urine Ketones TRACE Urine Occult Blood NEG Urine Nitrite NEG Urine Bilirubin NEG Urine Urobilinogen NEG Urine Leukocyte Esterase TRACE Urine WBC (Auto) 10-30 /hpf Urine RBC (Auto) 0-4 /hpf Urine Hyaline Casts (Auto) 1-5 /lpf Urine Epithelial Cells (Auto) 10-20 /lpf Urine Bacteria (Auto) 1+ Urine Renal Epithelial Cells /lpf Urine Pathogenic Casts See comments /lpf Urine Opiates Screen POS Urine Methadone, Qualitative NEG Urine Barbiturates NEG Urine Phencyclidine (PCP) Level POS Ur Amphetamine/Methamphetamine NEG MDMA (Ecstasy) Screen POS Urine Benzodiazepines Screen NEG Urine Cocaine Metabolite NEG Urine Marijuana (THC) NEG Test 09/16/16 15:00 Impression / Recommendations Impression 61 yo female grieving of 24yo daughter who overdosed on heroin 10/04/15. Yesterday suffered a panic attack and due to feeling overwhelmed took 1/2 bottle of Wellbutrin and unknown amount of Prednisone and "a little white pill ( suspected to be Lorazepam which patient suspects but not sure)". Patient denies that it was a suicide attempt but admits to feeling hopeless and admits to having suicidal thoughts earlier in the week.With abrupt change in her mental status and presence of blood tinge vomit around her mouth in the surveillance technician hours this morning suspect that she may have had a seizure related to overdose of Wellbutrin which she admits to taking. Risk Factors Assessment : Yes Access to guns: No Health problems: Yes Mental Health Diagnoses: Yes Previous attempt: No Previous psychiatric stay: No Hopelessness: Yes Protective Factors Assessment : Yes Employed: Yes Stable relationships: Yes ( 32 years) Supportive family: Yes Recommendations (1) Major depressive disorder, single episode with anxious distress Depression - strongly suspect that this was a suicide attempt by overdose and recommend that upon medical stabilization that she be transferred to psychiatric unit. Reviewed this with her and she was resistant but was very supportive and appears concerned for her safety. was going to discuss with her further. Would offer voluntary admission initially and if not willing involuntary based upon severity of likely overdose.
[2016-09-16 19:22] VITALS: BP 156/131; PULSE 91; TEMP 36.7; O2SAT 92
[2016-09-16] MEDS ORDERED: LORAZEPAM 2 MG/ML 1 ML VIAL IV PRN ×2 (20:00)
[2016-09-16 20:02] VITALS: BP 92/55
--- NOTE | 2016-09-16 20:53 | Progress Note ---
Progress Note Date of Service Sep 16, 2016. Progress Note patient re evaluated in AM after being taken to her room re assessed at around 730pm patient seemed to answer more questions appropriately but still very irritable strongly asks for food discussed risks with patient and including possible worsening of underlying gi bleed, abdominal pain, nausea, aspiration, delay if patient needs emergency endoscopy they are agreeable and accepting of above risks i gave permission for patient to have a cup of sherbet reviewed psych notes called Poison control center for recommendations, which are the following: continue supportive care repeat Salicylate level avoid Haldol for now, give Ativan PRN for agitation/combativeness discussed updates, impression and plan of care with at length he is agreeable and comfortable with plan of care will ff up Salicylate level Kemal Eduardo MD
[2016-09-17] VITALS (7 sets, daily range): BP systolic 96–175; BP diastolic 57–94; PULSE 70–85; TEMP 36.7–37.3; O2SAT 95–97
[2016-09-17] MEDS: SODIUM CHLORIDE 0.9% 1000ML 1,000 ML IV SCH (00:30)
[2016-09-17] MEDS: PANTOprazole INJ 40 MG in DEXTROSE 5% 100ML IV SCH (02:22)
--- NOTE | 2016-09-17 02:59 | EMERGENCY ROOM VISIT NOTE ---
History First contact with patient: 05:59 Chief Complaint: ALTERED MENTAL STATUS Stated Complaint: ALTERED MENTAL STATUS Nursing Triage Summary: Patient presents EMS after called stating he found patient in bed with dried vomit on her face and change in mental status. states he last saw last night around 1730 and patient had a migraine headache. patient awake and alert. patient complains of headache and also has slurred speech with periods of confusion. patient has dried vomit around face that appears to contain blood. History of Present Illness The patient is a 61 year old female who presents to the Emergency Room with complaints of headache last night he took Advil migraine and then was found this morning with vomit on her with slurred speech. Patient does not recall these events. Last thing she remembers was going to bed at 5:00pm last night with a migraine who frequently takes Advil migraine. She's had normal imaging in the past. Patient states she's a headache and no other medical complaints. I spoke to the patient's who states she normally has a history of migraines and frequently goes to bed early. He states this morning he went to check on her and she was covered in vomit and had slurred speech. He states that she was not making any sense. She was last on well at 5 PM yesterday which is greater than 12 hours from now. Patient is not a candidate for TPA. No prior history of CVA. He states that she does not really drink. He states that she does not really take narcotics. No history GI bleeding in the past. Normal colonoscopy 3 years ago. No EGD in the past. states she normally has a clear speech. He states this is not her normal baseline. states also one year ago today their daughter . Review of Systems See HPI for pertinent positives & negatives. A total of 10 systems reviewed and were otherwise negative. Past Medical/Surgical History Medical Problems: (1) Altered mental status (2) History of - section (3) Migraine Family History Cancer Diabetes mellitus Heart disease Hypertension Kidney disease Kidney stones Social History Smoking Status: Never Smoker Alcohol Use: occasionally Drug Use: none Marital Status: Housing Status: lives with family Occupation Status: employed Current/Historical Medications Scheduled Amitriptyline Hcl (Elavil), 25 MG PO HS Citalopram Hydrobromide (Celexa), 40 MG PO HS Hydrocodone/Acetaminophen 5MG/325MG ([place] 5MG/325MG), 1 TABLET PO Q4H Mirtazapine Soltab (Remeron Soltab), 30 MG PO HS Multiple Vitamins W/ Calcium (One-A-Day Womens Formula), 1 TAB PO DAILY Scheduled PRN Alprazolam (Xanax), 0.25 MG PO TID PRN for Anxiety Ibuprofen (Advil Migraine), 400 MG PO Q8 PRN for Pain Promethazine (Phenergan), 25 MG PO Q6H PRN for Nausea or Vomiting Allergies Coded Allergies: Penicillins (Verified Allergy, Mild, SWELLING BREATHING STOPS, 02/13/16) Acetazolamide (Unverified Allergy, Unknown, RASH/HIVES, 02/13/16) Molds and Smuts (Verified Allergy, Unknown, UNKNOWN, 02/13/16) Sumatriptan (Verified Adverse Reaction, Unknown, flushing,heart racing, ) Physical Exam Vital Signs Date Time Temp Pulse Resp B/P (MAP) Pulse Ox O2 Delivery O2 Flow Rate FiO2 09/16/16 07:56 87 22 140/85 97 Room Air 09/16/16 07:38 89 20 147/78 95 Room Air 09/16/16 07:18 86 18 135/75 92 Room Air 09/16/16 07:00 88 16 134/69 93 Room Air 09/16/16 06:17 96 22 151/81 93 Room Air 09/16/16 06:00 94 Room Air 09/16/16 06:00 94 Room Air 09/16/16 05:50 104 09/16/16 05:49 36.5 104 22 180/100 94 Room Air Physical Exam VITALS: Vitals are noted on the nurse's note and reviewed by myself. Vital signs tachycardic. GENERAL: Elderly female with dried hematemesis on her face slow to answer questions but is able to follow most commands with slurred speech SKIN: The skin was without rashes, erythema, edema, or bruising. There is no tenting of the skin. Capillary reflex less than 2 seconds. HEAD: Normocephalic atraumatic. EARS: External auditory canals clear, tympanic membranes pearly [place] without erythema or effusion bilaterally. EYES: Pupils equal round and reactive to light and accommodation. Conjunctivae without injection, sclerae without icterus. Extraocular movements intact. NOSE: Patent, turbinates without inflammation or discharge. No sinus tenderness. MOUTH: Mucous membranes dry with dried hematemesis in the mouth pharynx without erythema or exudate. Uvula midline. Airway patent. Tongue does not deviate. NECK: Supple without nuchal rigidity. No lymphadenopathy. No thyromegaly. Cervical spine is nontender. No JVD. HEART: Regular rate and rhythm LUNGS: Clear to auscultation bilaterally without wheezes, rales or rhonchi. No dullness to percussion. No retractions or accessory muscle use. ABDOMEN: Positive bowel sounds x 4. Normal tympanic percussion. Soft, nontender, without masses or organomegaly. Dutton sign negative. No guarding or rebound tenderness. MUSCULOSKELETAL: No muscle atrophy, erythema, or edema noted. NEURO: Patient was alert and oriented to person place but not time. Normal sensation to light and sharp touch. Patient unable to do cerebellar testing. No other focal neurological deficits. Medical Decision & Procedures Laboratory Results 09/16/16 06:00 Red Blood Count 4.28, Mean Corpuscular Volume 96.0, Mean Corpuscular Hemoglobin 33.2, Mean Corpuscular Hemoglobin Concent 34.5, Mean Platelet Volume 9.7, Neutrophils (%) (Auto) 86.9, Lymphocytes (%) (Auto) 6.9, Monocytes (%) (Auto) 6.0, Eosinophils (%) (Auto) 0.0, Basophils (%) (Auto) 0.0, Neutrophils # (Auto) 8.57, Lymphocytes # (Auto) 0.68, Monocytes # (Auto) 0.59, Eosinophils # (Auto) 0.00, Basophils # (Auto) 0.00 09/16/16 05:23 Test 09/16/16 05:23 09/16/16 06:00 09/16/16 06:01 09/16/16 06:12 Est Creatinine Clear Calc Drug Dose 47.7 ml/min Estimated GFR () 46.9 Estimated GFR (Non- 40.5 BUN/Creatinine Ratio 11.4 (10-20) Estimated Average Glucose 114 mg/dl Hemoglobin A1c 5.6 % (4.5-5.6) Calcium Level 9.2 mg/dl (8.5-10.1) Magnesium Level 2.2 mg/dl (1.8-2.4) Total Bilirubin 0.5 mg/dl (0.2-1) Direct Bilirubin < 0.1 mg/dl (0-0.2) Aspartate Amino Transf (AST/SGOT) 10 U/L (15-37) Alanine Aminotransferase (ALT/SGPT) 18 U/L (12-78) Alkaline Phosphatase 105 U/L (45-117) Total Creatine Kinase 86 U/L (26-192) Creatine Kinase MB 1.5 ng/ml (0.5-3.6) Creatine Kinase MB Ratio 1.7 (0-3.0) Troponin I < 0.015 ng/ml (0-0.045) Total Protein 8.1 gm/dl (6.4-8.2) Albumin 4.0 gm/dl (3.4-5.0) Lipase 299 U/L (73-393) Thyroid Stimulating Hormone (TSH) 0.476 uIu/ml (0.300-4.500) Acetaminophen Level < 2 ug/ml (10-30) White Blood Count 9.86 K/uL (4.8-10.8) Red Blood Count 4.28 M/uL (4.2-5.4) Hemoglobin 14.2 g/dL (12.0-16.0) Hematocrit 41.1 % (37-47) Mean Corpuscular Volume 96.0 fL (80-100) Mean Corpuscular Hemoglobin 33.2 pg (25-34) Mean Corpuscular Hemoglobin Concent 34.5 g/dl (32-36) Platelet Count 221 K/uL (130-400) Mean Platelet Volume 9.7 fL (7.4-10.4) Neutrophils (%) (Auto) 86.9 % Lymphocytes (%) (Auto) 6.9 % Monocytes (%) (Auto) 6.0 % Eosinophils (%) (Auto) 0.0 % Basophils (%) (Auto) 0.0 % Neutrophils # (Auto) 8.57 K/uL (1.4-6.5) Lymphocytes # (Auto) 0.68 K/uL (1.2-3.4) Monocytes # (Auto) 0.59 K/uL (0.11-0.59) Eosinophils # (Auto) 0.00 K/uL (0-0.5) Basophils # (Auto) 0.00 K/uL (0-0.2) RDW Standard Deviation 46.3 fL (36.4-46.3) RDW Coefficient of Variation 13.3 % (11.5-14.5) Immature Granulocyte % (Auto) 0.2 % Immature Granulocyte # (Auto) 0.02 K/uL (0.00-0.02) Prothrombin Time 10.1 SECONDS (9.0-12.0) Prothromb Time International Ratio 0.9 (0.9-1.1) Activated Partial Thromboplast Time 26.4 SECONDS (21.0-31.0) Partial Thromboplastin Ratio 1.0 Ethyl Alcohol mg/dL < 3.0 mg/dl (0-3) Bedside Hemoglobin 15.0 g/dl (12.0-16.0) Bedside Hematocrit 44 % (37-47) Bedside Sodium 140 mEq/L (135-144) Bedside Potassium 3.9 mEq/L (3.3-5.0) Bedside Chloride 102 mEq/L (101-112) Bedside Total CO2 23 mEq/l (24-31) Anion Gap 20.0 mmol/L (16-25) Bedside Blood Urea Nitrogen 16 mg/dl (7-18) Bedside Creatinine 1.1 mg/dl (0.6-1.3) Bedside Glucose (other) 134 mg/dl (70-99) Bedside Ionized Calcium (Anne[place]Marie) 1.20 mmol/l (1.12-1.32) Bedside Glucose 127 mg/dl (70-90) Test 09/16/16 06:16 09/16/16 06:19 09/16/16 07:00 09/16/16 07:10 Bedside Troponin I < 0.030 ng/ml (0-0.045) Bedside Prothrombin Time INR 0.9 (0.9-1.1) Venous Blood pH 7.38 (7.36-7.41) Venous Blood Partial Pressure CO2 37 mmHg (38.0-50.0) Venous Blood Partial Pressure O2 32 mmHg Venous Blood HCO3 22 mmol/L Venous Blood Oxygen Saturation 65.1 % Venous Blood Base Excess -3.2 mmol/L Urine Color YELLOW Urine Appearance CLOUDY (CLEAR) Urine pH 5.0 (4.5-7.5) Urine Specific [place] 1.016 (1.000-1.030) Urine Protein NEG (NEG) Urine Glucose (UA) NEG (NEG) Urine Ketones TRACE (NEG) Urine Occult Blood NEG (NEG) Urine Nitrite NEG (NEG) Urine Bilirubin NEG (NEG) Urine Urobilinogen NEG (NEG) Urine Leukocyte Esterase TRACE (NEG) Urine WBC (Auto) 10-30 /hpf (0-5) Urine RBC (Auto) 0-4 /hpf (0-4) Urine Hyaline Casts (Auto) 1-5 /lpf (0-5) Urine Epithelial Cells (Auto) 10-20 /lpf (0-5) Urine Bacteria (Auto) 1+ (NEG) Urine Renal Epithelial Cells /lpf (0-5) Urine Pathogenic Casts See comments /lpf (0) Urine Opiates Screen POS (NEG) Urine Methadone, Qualitative NEG (NEG) Urine Barbiturates NEG (NEG) Ur Amphetamine/Methamphetamine NEG (NEG) MDMA (Ecstasy) Screen POS (NEG) Urine Benzodiazepines Screen NEG (NEG) Urine Cocaine Metabolite NEG (NEG) Urine Marijuana (THC) NEG (NEG) Medications Administered Medications (Trade) Dose Ordered Sig/King Route Start Time Stop Time Status Last Admin Dose Admin Sodium Chloride 1,000 ml @ 125 mls/hr Q8H STAT IV 09/16/16 05:56 09/16/16 09:17 DC 09/16/16 06:14 125 MLS/HR Sodium Chloride 500 ml @ 999 mls/hr Q31M STAT IV 09/16/16 05:56 09/16/16 06:26 DC 09/16/16 06:14 999 MLS/HR Pantoprazole Sodium 80 mg/ Dextrose 120 ml @ 480 mls/hr TODAY@0615 IV 09/16/16 06:15 09/16/16 06:29 DC 09/16/16 06:13 480 MLS/HR Pantoprazole Sodium 40 mg/ Dextrose 100 ml @ 20 mls/hr Q5H IV 09/16/16 06:30 09/30/16 06:29 09/17/16 02:22 20 MLS/HR Levofloxacin (Levaquin / D5W) 750 mg NOW STAT IV 09/16/16 06:16 09/16/16 06:18 DC 09/16/16 06:34 750 MG Metronidazole (Flagyl / Nss) 500 mg NOW STAT IV 09/16/16 06:16 09/16/16 06:18 DC 09/16/16 06:16 500 MG Naloxone HCl (Narcan Inj) 0.4 mg NOW STAT IV 09/16/16 06:27 09/16/16 06:28 DC 09/16/16 06:31 0.4 MG Sodium Chloride 500 ml @ 999 mls/hr Q31M STAT IV 09/16/16 06:38 09/16/16 07:08 DC 09/16/16 07:11 999 MLS/HR ED Course Prior records/ancillary studies reviewed and summarized above. Nursing notes reviewed. Additional history obtained from family. The patient's history was concerning for altered mental status. Differential diagnosis: Etiologies such as metabolic, infection, hypoglycemia, electrolyte abnormalities , cardiac sources, intracerebral event, toxicologic, neurologic, as well as others were entertained. Physical examination: As above. ER treatment provided: IV Lock Normal saline. Protonix drip, Levaquin and Flagyl for coverage for possible aspiration On reassessment the patients mental status improved. Diagnostics interpretation by me: ECG: Normal sinus, normal intervals, no acute ST-T wave changes, rate of 102. Impression sinus tachycardia interpreted by myself, no QRS widening The labs revealed mild hyperglycemia Stable H&H and creatinine Imaging studies: CT HEAD: No ICH, mass effect or edema. No evidence of acute cortical stroke. No midline shift or hydrocephalus. Diffuse parenchymal atrophy. Visualized sinuses show no fluid levels but a mucous distention cyst in the left maxillary sinus. Mastoid air cells are clear. Radiologist: Kael Mascorro M.D. Chest x-ray with no acute consolidation, pneumothorax or free air, right hemidiaphragmatic elevation per my interpretation Given the above diagnostic work-up and treatment, this episode appears to be consistent with AMS, GI bleed with a stable H&H. Further treatment will be required. Patient has a slurred speech and has difficulty with cerebellar testing. She'll be evaluated by medicine for admission. She is outside the window for TPA. She was last known well 12 hours ago. Patient was reassessed multiple times. She started on Protonix drip. She was hydrated as above. Gastric occult testing was positive as patient had hematemesis on her face and this is tested. Consultation: A consultation was placed with Dr Vargas, hospitalist. The case was discussed and diagnostics were reviewed. The patient was evaluated in the ER for further treatment. Case reviewed with my attending Medical Decision As above Patient was found to have elevated blood pressure and was referred to their family doctor for recheck and further treatment. Medications were reviewed. Impression Primary Impression: Altered mental status Additional Impression: GI bleed Critical Care I have personally spent greater than 30 minutes of critical care time in the direct management of this patient. This includes bedside care, interpretation of diagnostic studies, and testing, discussion with consultants, patient, and family members, and other required patient management activities. This 30 minutes is in excess of all separately billable procedures. Time Last Known Well 5pm Stroke t-PA Criteria Reviewed Does NOT meet criteria for t-PA (patient was last well-known greater than 12 hours ago.) Reason t-PA Not Given Contraindicated Strict Exclusion Criteria Active internal bleeding Relative Exclusion Criteria GI bleeding in last 3 weeks Departure Information Dispostion Being Evaluated By Hospitalist Condition FAIR Referrals Hany Glaser M.D. (PCP) Patient Instructions My [facility] Problem Qualifiers Primary Impression: Altered mental status Altered mental status type: transient alteration of awareness Qualified Codes : R40.4 - Transient alteration of awareness Additional Impression: GI bleed GI bleed type/associated pathology: unspecified gastrointestinal hemorrhage type Qualified Codes: K92.2 - Gastrointestinal hemorrhage, unspecified
[2016-09-17] MEDS ORDERED: CIPROFLOXACIN / D5W 400 MG in PREMIXED IN D5W 200 ML IV SCH (06:00)
[2016-09-17 06:13] LABS: BASO % 0.1 %; BASO ABS # 0.01 K/uL (0-0.2); COMPLETE YES; EOS % 0.1 %; HEMATOCRIT 35.6 % (37-47); IG% 0.2 %; LYMPH % 18.2 %; LYMPH ABS # 1.55 K/uL (1.2-3.4); MEAN CELL VOLUME 95.7 fL (80-100); MEAN CORPUSCULAR HEMOGLOBIN 31.7 pg (25-34); MEAN CORPUSCULAR HGB CONC 33.1 g/dl (32-36); MEAN PLATELET VOLUME 9.5 fL (7.4-10.4); MONO % 7.4 %; PLATELET COUNT 216 K/uL (130-400); RED BLOOD COUNT 3.72 M/uL (4.2-5.4); WHITE BLOOD COUNT 8.51 K/uL (4.8-10.8)
[2016-09-17 06:49] LABS: BUN/CREATININE RATIO 10.1 (10-20); CALCIUM 8.5 mg/dl (8.5-10.1); CREATININE 0.79 mg/dl (0.60-1.20); MAGNESIUM 2.2 mg/dl (1.8-2.4)
[2016-09-17 06:50] LABS: CHOLESTEROL/HDL RATIO 3.6
[2016-09-17] MEDS ORDERED: HALOPERIDOL LACTATE 5 MG/ML 1 ML VIAL IM PRN (07:30)
--- NOTE | 2016-09-17 08:52 | Progress Note ---
Medicine Progress Note Date & Time of Visit: Sep 17, 2016 at 08:38. Subjective patient seen resting in bed, [employer] at bedside she is alert, oriented x 3, calm, cooperative apologetic about her behavior yesterday, states that is not her baseline personality cannot fully put into words what she was feeling/going through but felt that a voice was telling her to do things, people she was talking to appeared to be dolls all of that resolved today states her mental status is much better today denies headache, dizziness no abdominal pain, nausea/vomiting, no BMs yet, (+) flatus no chest pain, palpitations no other symptoms Objective Last 8 Hrs Date Time Temp Pulse Resp B/P (MAP) Pulse Ox O2 Delivery O2 Flow Rate FiO2 09/17/16 07:05 37.1 84 16 118/76 (90) 96 Room Air 09/17/16 04:02 37.0 85 16 140/62 (88) 95 Room Air 09/17/16 04:00 Room Air Physical Exam: General- oriented x 3, not in distress, speaks in sentences with no effort Head- atraumatic Eyes- EOMI, anicteric ENT- oropharynx clear Neck- supple, no JVD Lungs- clear breath sounds bilaterally, no rales/wheezes Heart- regular rhythm; no murmur, normal rate Abdomen- normal bowel sounds, soft, nontender Extremities- no pretibial edema, no calf tenderness; peripheral pulses intact Neuro- alert, oriented x 3; no gross focal deficits Skin- warm & dry Psych- normal affect Laboratory Results: Last 24 Hours Test 09/16/16 15:34 09/16/16 20:26 09/17/16 05:10 09/17/16 05:20 Hemoglobin 12.7 g/dL 11.8 g/dL Hematocrit 38.0 % 35.6 % Salicylates Level 6.3 mg/dl Sodium Level 147 mmol/L Potassium Level 4.0 mmol/L Chloride Level 115 mmol/L Carbon Dioxide Level 23 mmol/L Anion Gap 9.0 mmol/L Blood Urea Nitrogen 8 mg/dl Creatinine 0.79 mg/dl Est Creatinine Clear Calc Drug Dose 85.8 ml/min Estimated GFR () 93.6 Estimated GFR (Non- 80.8 BUN/Creatinine Ratio 10.1 Random Glucose 91 mg/dl Calcium Level 8.5 mg/dl Magnesium Level 2.2 mg/dl Total Bilirubin 0.4 mg/dl Direct Bilirubin 0.1 mg/dl Aspartate Amino Transf (AST/SGOT) 13 U/L Alanine Aminotransferase (ALT/SGPT) 14 U/L Alkaline Phosphatase 78 U/L Total Protein 6.0 gm/dl Albumin 3.1 gm/dl Triglycerides Level 85 mg/dl Cholesterol Level 185 mg/dl HDL Cholesterol 52 mg/dl LDL Cholesterol, Calculated 116 mg/dl VLDL Cholesterol, Calculated 17 mg/dl Cholesterol/HDL Ratio 3.6 White Blood Count 8.51 K/uL Red Blood Count 3.72 M/uL Mean Corpuscular Volume 95.7 fL Mean Corpuscular Hemoglobin 31.7 pg Mean Corpuscular Hemoglobin Concent 33.1 g/dl Platelet Count 216 K/uL Mean Platelet Volume 9.5 fL Neutrophils (%) (Auto) 74.0 % Lymphocytes (%) (Auto) 18.2 % Monocytes (%) (Auto) 7.4 % Eosinophils (%) (Auto) 0.1 % Basophils (%) (Auto) 0.1 % Neutrophils # (Auto) 6.29 K/uL Lymphocytes # (Auto) 1.55 K/uL Monocytes # (Auto) 0.63 K/uL Eosinophils # (Auto) 0.01 K/uL Basophils # (Auto) 0.01 K/uL RDW Standard Deviation 48.7 fL RDW Coefficient of Variation 13.8 % Immature Granulocyte % (Auto) 0.2 % Immature Granulocyte # (Auto) 0.02 K/uL Assessment & Plan 61 year old female with history of Chronic Migraine, Depression, presenting with altered mental status noted early this morning. ALTERED MENTAL STATUS EPISODE OF SLURRED SPEECH POSSIBLE DELIRIUM/ENCEPHALOPATHY FROM MEDICATIONS Urine Drug Screen: (+) for opiate, PCP, MDMA (patient takes Citalopram, Mirtazipine, Amitryptiline) patient later on yesterday admitted to Psychiatrist that she has taken 1/2 bottle of Wellbutrin, some Prednisone and Ativan -- mental status much better today -- will continue telemetry monitoring, supportive care -- PRN Haldol for agitation all psych meds held for now for re-evaluation today by Psych for possible suicidal ideations may need inpatient Psych eval and treatment discussed with Dr. Kahn yesterday, appreciate the input R/O SEIZURE EPISODE from Wellbutrin overdose? check EEG seizure precautions - appreciate Neuro SVC input POSSIBLE UTI urine cultures pending on Cipro IV check blood cultures ACUTE CVA RULED OU T CT head negative MRI brain ordered: negative R/O GI BLEED -- per , she had dried vomit with some blood when he found her early AM -- Hg 14 to 11.7 -- no abdominal pain ,nausea, recurrence of vomiting, no BM yet -- d/c Protonix drip, change to Protonix BID trial of clear liquids -- GI consulted repeat H&H 1pm ASPIRATION PNEUMONIA ruled out CT chest: no aspiration, (+) stable nodule ACUTE RENAL FAILURE crea back to baseline gentle IV fluids MIGRAINE HEADACHE, CHRONIC denies headache this morning DEPRESSION patient has been having difficulty with depressive symptoms since daughter last month patient takes Citalopram, Mirtazipine, Amitryptiline prescribed by PCP -- Psych on board may need inpatient Psych treatment for possible suicidal ideations DVT PROPH SCDs only for now early ambulation hold anticoag until gi bleed completely ruled out FULL CODE DISPOSITION pending lives at home with may need inpatient Psych treatment Current Inpatient Medications: Current Inpatient Medications Medications (Trade) Dose Ordered Sig/King Route Start Time Stop Time Status Last Admin Dose Admin Acetaminophen (Tylenol Tab) 650 mg Q4H PRN PO 09/16/16 08:30 10/16/16 08:29 09/16/16 11:20 650 MG Ondansetron HCl (Zofran Inj) 4 mg Q6H PRN IV 09/16/16 08:30 10/16/16 08:29 Miscellaneous Information (Pharmacist Discharge Med Rec Consult) 1 ea UD PRN N/A 09/16/16 08:30 10/16/16 08:29 Ciprofloxacin/ Dextrose 400 mg/ Prmx 200 ml @ 100 mls/hr Q12@0600,1800 IV 09/17/16 06:00 09/21/16 05:59 09/17/16 06:37 100 MLS/HR Benztropine Mesylate (Cogentin Inj) 1 mg Q4 PRN IV 09/16/16 15:45 10/16/16 15:44 Haloperidol Lactate (Haldol Inj) 5 mg DAILY PRN IM 09/17/16 07:30 10/17/16 07:29 UNV Sodium Chloride 1,000 ml @ 75 mls/hr [id number] IV 09/17/16 07:30 10/17/16 07:29 UNV Pantoprazole Sodium 40 mg/ Syringe 10 ml @ 5 mls/min DAILY@09, IV 09/17/16 09:00 10/17/16 08:59 UNV
[2016-09-17] MEDS: SODIUM CHLORIDE 0.45% 1000ML 1,000 ML IV SCH ×2 (09:00→21:11)
[2016-09-17] MEDS: PANTOprazole INJ 40 MG in SYRINGE 0 ML IV SCH ×2 (10:13→21:11)
--- NOTE | 2016-09-17 11:02 | GASTROINTESTINAL CONSULTATION ---
DATE OF CONSULTATION: 09/17/2016 CHIEF COMPLAINT: Altered mental status and coffee-ground emesis. HISTORY OF PRESENT ILLNESS: The patient is a 61-year-old female with multiple medical problems, who presented to the Emergency Room yesterday after being found down by her at home. Per the 's report, the patient had a small amount of blood around her mouth and on her chest. The patient notes no nausea, vomiting, fevers or chills today. She did take medication overdose, which included a number of medications to include Xanax, nonsteroidals and buspirone. 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 She does note having a prior colonoscopy approximately 3 years ago, which was reported as normal except for an aspiration which occurred at the time of the procedure. PAST MEDICAL HISTORY: 1. Migraines. 2. Depression. 3. Anxiety. OUTPATIENT MEDICATIONS: 1. Elavil 25 mg at bedtime. 2. Celexa 40 mg at bedtime. 3. Remeron 30 mg at bedtime. 4. Multivitamin once daily. PAST SURGICAL HISTORY: section. FAMILY HISTORY: Diabetes in her parents. No colon cancer or stomach cancer. SOCIAL HISTORY: The patient is a nonsmoker. Denies alcohol use. Does occasionally smoke marijuana. Lives with her at home. ALLERGIES: 1. PENICILLIN. 2. MOLDS. 3. SUMATRIPTAN. 4. ACETAZOLAMIDE. REVIEW OF SYSTEMS: Today: GENERAL: The patient without fevers or chills today. CARDIAC: No chest pain, no palpitations. PULMONARY: No shortness of breath or cough today. GENITOURINARY: No dysuria noted by patient. MUSCULOSKELETAL: No new joint pains or muscle pains. GASTROINTESTINAL: The patient with a history of coffee-ground emesis. No melena. MUSCULOSKELETAL: No new joint pains. HEENT: No difficulty swallowing. NEUROLOGIC: The patient without double vision. PSYCHIATRIC: History of depression. PHYSICAL EXAMINATION: VITAL SIGNS: Temperature 37.1, pulse is 84, respiratory rate 16, blood pressure is 118/76. HEENT: No scleral icterus noted. No JVD noted. LUNGS: Clear bilaterally with faint wheezes on expiration. CARDIAC: Regular rhythm with a systolic murmur heard. ABDOMEN: Soft, nontender. EXTREMITIES: No edema. DERMATOLOGY: No spider nevi noted. NEUROLOGIC: Cranial nerves are grossly intact. Motor are grossly intact. LABORATORIES: White blood cell count 8.5, hemoglobin on admission 14.2, 11.8 today. Hematocrit on admission 41.1 and 35.6 today. Platelet count is 216. Chemistry: Sodium is 147, potassium is 4.0, chloride is 115, BUN 8, creatinine is 0.79, calcium is 8.5, AST 13, ALT 14, alkaline phosphatase 78, albumin is 3.1. PT 10.1, INR is 0.9. IMPRESSION: A 61-year-old female presenting with a drug overdose yesterday, found to have a small amount of bloody emesis prior to admission. As there has been no recurrence, I suspect that the patient probably had a Palmira-Campos tear. After a long discussion with the patient and her , they would like to hold on any interventional procedures given the nature of her admission. RECOMMENDATIONS: 1. Advance diet as tolerated. 2. Would suggest Protonix 40 mg once daily. 3. Would monitor CBC two times daily for the next 48 hours. 4. Please call with any questions or concerns. If there is a significant drop in her blood count, please call my service and we will make arrangements for upper endoscopy.
--- NOTE | 2016-09-17 12:12 | PROGRESS NOTE ---
DATE: 09/17/2016 SUBJECTIVE: I saw Marcus today, she is much different than she was yesterday. She is awake, alert, oriented in 3 spheres, had a discussion with psychiatry yesterday and admitted to taking excessive amounts of Wellbutrin plus the Ativan. Inpatient stay on 3 is being recommended and I think she is considering this. This does sound like a suicidal gesture. She has had a headache which is now cleared. She has a little tremor, but she admits that she has some tremor from time to time and denies any family history for same. OBJECTIVE: Today, on exam she is awake, alert, oriented in 3 spheres. He has no recall of the events that precipitated her admission here other than the recall of ingesting her medications and does not recall seeing me yesterday but memory after that point is clearly intact. She has normal cranial nerves, the tremor I see today is minor of the outstretched hands. There is no cerebellar dysmetria. She has normal reflexes, downgoing toes. Excellent strength. Normal sensation. IMAGING STUDIES: Shown no structural problems. An EEG is being requested but I think it is an academic point at this time. There is a possibility that the acute Wellbutrin overdose did precipitate a single seizure, but I do not think we can know this. I certainly would not commit her to a course of anticonvulsives based on history nor would I on the basis of an abnormal EEG unless the abnormalities were significant. W will be happy to see her as needed if there would be recurrent events. We may need to see her in the future if her headaches get frequent, but to date she really apparently has not been seen by neurology and is being managed totally by her physician, Dr. Glaser. [facility]
[2016-09-17 15:55] LABS: HEMATOCRIT 35.6 % (37-47)
[2016-09-17 16:19] LABS: CALCIUM 8.3 mg/dl (8.5-10.1); CREATININE 0.84 mg/dl (0.60-1.20)
[2016-09-17] MEDS: CIPROFLOXACIN 500 MG TAB PO SCH (21:11)
[2016-09-18] VITALS (7 sets, daily range): BP systolic 128–185; BP diastolic 62–110; PULSE 70–77; TEMP 36.5–37.1; O2SAT 97–98
[2016-09-18 06:30] LABS: BASO % 0.2 %; BASO ABS # 0.02 K/uL (0-0.2); COMPLETE YES; EOS % 1.4 %; HEMATOCRIT 36.3 % (37-47); IG% 0.2 %; LYMPH % 18.1 %; LYMPH ABS # 1.51 K/uL (1.2-3.4); MEAN CELL VOLUME 98.1 fL (80-100); MEAN CORPUSCULAR HGB CONC 33.6 g/dl (32-36); MEAN PLATELET VOLUME 9.9 fL (7.4-10.4); MONO % 9.4 %; NEUT % 70.7 %; PLATELET COUNT 207 K/uL (130-400); WHITE BLOOD COUNT 8.33 K/uL (4.8-10.8)
[2016-09-18 06:56] LABS: BUN/CREATININE RATIO 12.5 (10-20); CALCIUM 8.3 mg/dl (8.5-10.1); CREATININE 0.75 mg/dl (0.60-1.20); MAGNESIUM 2.3 mg/dl (1.8-2.4); POTASSIUM 4.4 mmol/L (3.5-5.1)
[2016-09-18] MEDS: CIPROFLOXACIN 500 MG TAB PO SCH (08:11)
[2016-09-18] MEDS: PANTOprazole INJ 40 MG in SYRINGE 0 ML IV SCH (08:11)
[2016-09-18] MEDS: SODIUM CHLORIDE 0.45% 1000ML 1,000 ML IV SCH (09:24)
[2016-09-18] MEDS ORDERED: NICOTINE 21 MG/24 HR TDSY TD ONE (10:16)
--- NOTE | 2016-09-18 10:20 | Progress Note ---
Medicine Progress Note Date & Time of Visit: Sep 18, 2016 at 10:13. Subjective patient seen sitting up in bed, alert, oriented calm, cooperative states she feels better overall denies abdominal pain, vomiting, melena/hematochezia no headache, chest pain, dyspnea no problems with urination more conversant, occasionally gets tearful talking about her daughter- 1st anniversary coming in a few days admits "it's still hard" but smiles more during interview does not remember events leading to admission remembers taking Wellbutrin, etc. but denies suicidal intent very willing to discuss treatment options with Psych SVC Objective Last 8 Hrs Date Time Temp Pulse Resp B/P (MAP) Pulse Ox O2 Delivery O2 Flow Rate FiO2 09/18/16 08:11 36.5 74 18 168/86 (113) 98 09/18/16 08:00 Room Air 09/18/16 04:02 36.6 77 18 154/86 (108) 97 Room Air 09/18/16 04:00 Room Air Physical Exam: General- oriented x 3, not in distress, speaks in sentences with no effort Eyes- anicteric Neck-no JVD Lungs- clear breath sounds bilaterally, no rales/wheezes Heart- regular rhythm; no murmur, normal rate Abdomen- normal bowel sounds, soft, nontender Extremities- no pretibial edema, no calf tenderness; peripheral pulses intact Neuro- alert, oriented x 3; no gross focal deficits Skin- warm & dry Psych- normal affect Laboratory Results: Last 24 Hours Test 09/17/16 15:21 09/18/16 05:30 Hemoglobin 12.1 g/dL 12.2 g/dL Hematocrit 35.6 % 36.3 % Sodium Level 144 mmol/L 144 mmol/L Potassium Level 4.0 mmol/L 4.4 mmol/L Chloride Level 109 mmol/L 110 mmol/L Carbon Dioxide Level 28 mmol/L 27 mmol/L Anion Gap 7.0 mmol/L 7.0 mmol/L Blood Urea Nitrogen 9 mg/dl 9 mg/dl Creatinine 0.84 mg/dl 0.75 mg/dl Est Creatinine Clear Calc Drug Dose 80.7 ml/min 90.4 ml/min Estimated GFR () 86.9 99.7 Estimated GFR (Non- 75.0 86.0 BUN/Creatinine Ratio 11.0 12.5 Random Glucose 84 mg/dl 87 mg/dl Calcium Level 8.3 mg/dl 8.3 mg/dl White Blood Count 8.33 K/uL Red Blood Count 3.70 M/uL Mean Corpuscular Volume 98.1 fL Mean Corpuscular Hemoglobin 33.0 pg Mean Corpuscular Hemoglobin Concent 33.6 g/dl Platelet Count 207 K/uL Mean Platelet Volume 9.9 fL Neutrophils (%) (Auto) 70.7 % Lymphocytes (%) (Auto) 18.1 % Monocytes (%) (Auto) 9.4 % Eosinophils (%) (Auto) 1.4 % Basophils (%) (Auto) 0.2 % Neutrophils # (Auto) 5.88 K/uL Lymphocytes # (Auto) 1.51 K/uL Monocytes # (Auto) 0.78 K/uL Eosinophils # (Auto) 0.12 K/uL Basophils # (Auto) 0.02 K/uL RDW Standard Deviation 48.5 fL RDW Coefficient of Variation 13.6 % Immature Granulocyte % (Auto) 0.2 % Immature Granulocyte # (Auto) 0.02 K/uL Magnesium Level 2.3 mg/dl Date/Time Source Procedure Growth Status 09/17/16 15:45 Blood Blood Culture Pending Received 09/17/16 15:21 Blood Blood Culture Pending Received Assessment & Plan 61 year old female with history of Chronic Migraine, Depression, presenting with altered mental status noted early this morning. ALTERED MENTAL STATUS EPISODE OF SLURRED SPEECH POSSIBLE DELIRIUM/ENCEPHALOPATHY FROM MEDICATIONS Urine Drug Screen: (+) for opiate, PCP, MDMA (patient takes Citalopram, Mirtazipine, Amitryptiline) patient later on yesterday admitted to Psychiatrist that she has taken 1/2 bottle of Wellbutrin, some Prednisone and Ativan -- mental status back to baseline -- continue telemetry monitoring, supportive care -- PRN Haldol for agitation all psych meds held for now for re-evaluation today by Psych may need inpatient Psych eval and treatment R/O SEIZURE EPISODE from Wellbutrin overdose? check EEG seizure precautions - appreciate Neuro SVC input UTI Ruled out urine cultures negative d/c Cipro blood cultures: pending ACUTE CVA RULED OU T CT head negative MRI brain ordered: negative R/O GI BLEED -- per , she had dried vomit with some blood when he found her early AM -- Hg 14 to 11.7--> stable at 12 -- no abdominal pain ,nausea, recurrence of vomiting no melena,hematochezia -- d/c Protonix drip, changed to Protonix BID--> change to daily advance to regular diet today -- GI consulted no EGD at this time appreciate the input ASPIRATION PNEUMONIA ruled out CT chest: no aspiration, (+) stable nodule ACUTE RENAL FAILURE crea back to baseline gentle IV fluids given MIGRAINE HEADACHE, CHRONIC denies headache this morning DEPRESSION patient has been having difficulty with depressive symptoms since daughter last month patient takes Citalopram, Mirtazipine, Amitryptiline prescribed by PCP (held for now) -- Psych on board may need inpatient Psych treatment for possible suicidal ideations HYPERTENSION no history of HTN PRN Clonidine monitor DVT PROPH SCDs only for now early ambulation hold anticoag until gi bleed completely ruled out FULL CODE DISPOSITION pending lives at home with may need inpatient Psych treatment- awaiting re-evaluation Current Inpatient Medications: Current Inpatient Medications Medications (Trade) Dose Ordered Sig/King Route Start Time Stop Time Status Last Admin Dose Admin Acetaminophen (Tylenol Tab) 650 mg Q4H PRN PO 09/16/16 08:30 10/16/16 08:29 09/16/16 11:20 650 MG Ondansetron HCl (Zofran Inj) 4 mg Q6H PRN IV 09/16/16 08:30 10/16/16 08:29 Benztropine Mesylate (Cogentin Inj) 1 mg Q4 PRN IV 09/16/16 15:45 10/16/16 15:44 Haloperidol Lactate (Haldol Inj) 5 mg DAILY PRN IM 09/17/16 07:30 10/17/16 07:29 Sodium Chloride 1,000 ml @ 75 mls/hr [id number] IV 09/17/16 07:30 10/17/16 07:29 09/18/16 09:24 75 MLS/HR Pantoprazole Sodium 40 mg/ Syringe 10 ml @ 5 mls/min DAILY@ IV 09/17/16 10:00 10/17/16 09:59 09/18/16 08:11 5 MLS/MIN Ciprofloxacin (Cipro Tab) 500 mg BID PO 09/17/16 21:00 09/22/16 20:59 09/18/16 08:11 500 MG
[2016-09-18] MEDS ORDERED: ARTIFICIAL TEARS OP SOLN OP PRN ×2 (10:30)
[2016-09-18] MEDS: CLONIDINE HCL 0.1 MG TAB PO PRN ×2 (10:46→19:56)
[2016-09-18] MEDS: ACETAMINOPHEN 325 MG TAB PO PRN ×2 (13:02→20:02)
[2016-09-18] MEDS ORDERED: LEVOFLOXACIN / D5W 500 MG in PREMIXED IN D5W 100 ML IV SCH (16:00)
--- NOTE | 2016-09-18 16:52 | PROGRESS NOTE ---
DATE: 09/18/2016 HISTORY OF PRESENT ILLNESS: I saw Marcus today. She looks well. She has decided to go up to [facility], which I think is perera choice given her suicidal gesture. She recognizes that she has going to need a little more professional guidance in dealing with her grief reaction. PHYSICAL EXAMINATION: Her exam is normal. IMAGING DATA: Her EEG is normal. ASSESSMENT AND PLAN: At this point, then neurology really is not going to offer any anticonvulsant therapy and hopefully her grief reaction with suicidal rumination and gesture will respond to adequate inpatient therapy and perhaps some medication changes. I would be happy to take a look at on an as needed basis if her migraine headaches, etc. become more frequent or difficult to control.
--- NOTE | 2016-09-18 17:45 | ELECTROENCEPHALOGRAPH REPORT ---
REQUESTING: Dr. Kemal Eduardo. CLINICAL DIAGNOSIS: Confusional episodes with possible drug related. ELECTROENCEPHALOGRAM DIAGNOSIS: Essentially normal during wakefulness. DESCRIPTION OF TRACING: This EEG was done as a bedside recording and was of good technical quality with a simultaneous video analysis of patient movement and behavior. Photic stimulation was performed. Hyperventilation was not. Drowsiness and light sleep are not clearly recorded. Under these conditions, there is evidence for a normal appearing background rhythm in the alpha range of up to 9-10 Hz of maximum frequency and 30 microvolts of maximum amplitude. This is maximum posterior head regions bilaterally symmetrical. Polymorphic mid frequency theta activity is seen over all head regions without clear focal or regional predominance. Anterior head region maximum bilaterally symmetrical low voltage fast activity in the beta range is present. At no time during the waking tracing is there evidence for potentially epileptogenic activity in the form of polyspike or spike wave bursts, focal sharp waves or focal spikes. Photic stimulation does provoke a modest driving response without a photomyogenic or photoparoxysmal component. INTERPRETATION: This electroencephalogram is essentially normal during wakefulness without evidence for focal or generalized encephalopathy and without evidence for potentially epileptogenic activity.
[2016-09-18] MEDS ORDERED: AMLODIPINE BESYLATE 5 MG TAB PO ONE (18:00)
[2016-09-19] VITALS (8 sets, daily range): BP systolic 129–169; BP diastolic 71–86; PULSE 66–79; TEMP 36.5–37.1; O2SAT 93–99
[2016-09-19 07:46] LABS: BASO % 0.2 %; BASO ABS # 0.02 K/uL (0-0.2); COMPLETE YES; EOS % 2.1 %; HEMATOCRIT 40.2 % (37-47); IG% 0.2 %; LYMPH % 19.5 %; LYMPH ABS # 1.65 K/uL (1.2-3.4); MEAN CELL VOLUME 95.9 fL (80-100); MEAN CORPUSCULAR HEMOGLOBIN 32.2 pg (25-34); MEAN CORPUSCULAR HGB CONC 33.6 g/dl (32-36); MEAN PLATELET VOLUME 9.8 fL (7.4-10.4); PLATELET COUNT 232 K/uL (130-400); RED BLOOD COUNT 4.19 M/uL (4.2-5.4); WHITE BLOOD COUNT 8.47 K/uL (4.8-10.8)
[2016-09-19] MEDS: AMLODIPINE BESYLATE 5 MG TAB PO SCH (07:58)
[2016-09-19] MEDS: PANTOprazole SOD 40 MG TAB PO SCH (07:59)
[2016-09-19] MEDS: NICOTINE 21 MG/24 HR TDSY TD SCH (08:00)
[2016-09-19 08:16] LABS: BUN/CREATININE RATIO 12.5 (10-20); CREATININE 0.92 mg/dl (0.60-1.20); MAGNESIUM 2.3 mg/dl (1.8-2.4)
[2016-09-19 08:49] LABS: CALCIUM 9.1 mg/dl (8.5-10.1)
[2016-09-19] MEDS: ACETAMINOPHEN 325 MG TAB PO PRN ×2 (10:53→18:01)
--- NOTE | 2016-09-19 12:11 | Progress Note ---
Medicine Progress Note Date & Time of Visit: Sep 19, 2016 at 11:39. Subjective patient seen resting in bed, comfortable tolerating regular diet well, no melena/hematochezia, nausea, abdominal pain has mild headache, no other neuro symptoms mood also appears better today still very willing to undergo further inpatient Psych treatment no other symptoms Objective Last 8 Hrs Date Time Temp Pulse Resp B/P (MAP) Pulse Ox O2 Delivery O2 Flow Rate FiO2 09/19/16 08:00 Room Air 09/19/16 06:59 36.6 66 18 148/86 (106) 99 Room Air 09/19/16 04:00 36.8 76 20 129/74 (92) 93 Room Air 09/19/16 04:00 Room Air Physical Exam: General- oriented x 3, not in distress Eyes- anicteric Neck-no JVD Lungs- clear breath sounds bilaterally Heart- normal rate, regular rhythm; no murmurs Abdomen- normal bowel sounds, non distended, soft, nontender Extremities- mild pretibial edema, no calf tenderness/erythema/warmth Neuro- alert, oriented x 3; no gross focal deficits Skin- warm & dry Psych- normal affect, occasionally gets emotional but for the most part, mood better today Laboratory Results: Last 24 Hours Test 09/19/16 07:04 White Blood Count 8.47 K/uL Red Blood Count 4.19 M/uL Hemoglobin 13.5 g/dL Hematocrit 40.2 % Mean Corpuscular Volume 95.9 fL Mean Corpuscular Hemoglobin 32.2 pg Mean Corpuscular Hemoglobin Concent 33.6 g/dl Platelet Count 232 K/uL Mean Platelet Volume 9.8 fL Neutrophils (%) (Auto) 72.0 % Lymphocytes (%) (Auto) 19.5 % Monocytes (%) (Auto) 6.0 % Eosinophils (%) (Auto) 2.1 % Basophils (%) (Auto) 0.2 % Neutrophils # (Auto) 6.09 K/uL Lymphocytes # (Auto) 1.65 K/uL Monocytes # (Auto) 0.51 K/uL Eosinophils # (Auto) 0.18 K/uL Basophils # (Auto) 0.02 K/uL RDW Standard Deviation 46.1 fL RDW Coefficient of Variation 13.2 % Immature Granulocyte % (Auto) 0.2 % Immature Granulocyte # (Auto) 0.02 K/uL Sodium Level 143 mmol/L Potassium Level 4.0 mmol/L Chloride Level 105 mmol/L Carbon Dioxide Level 29 mmol/L Anion Gap 9.0 mmol/L Blood Urea Nitrogen 12 mg/dl Creatinine 0.92 mg/dl Est Creatinine Clear Calc Drug Dose 73.1 ml/min Estimated GFR () 77.9 Estimated GFR (Non- 67.2 BUN/Creatinine Ratio 12.5 Random Glucose 95 mg/dl Calcium Level 9.1 mg/dl Magnesium Level 2.3 mg/dl Date/Time Source Procedure Growth Status 09/18/16 15:40 Nasal MRSA DNA Surveillance Screen - Final Specimen Negative for MRSA by DNA Probe Complete Assessment & Plan 61 year old female with history of Chronic Migraine, Depression, presenting with altered mental status noted early this morning. EPISODE OF ALTERED MENTAL STATUS, SLURRED SPEECH LIKELY DELIRIUM/METABOLIC ENCEPHALOPATHY FROM MEDICATIONS Urine Drug Screen: (+) for opiate, PCP, MDMA (patient takes Citalopram, Mirtazipine, Amitryptiline) patient later on yesterday admitted to Psychiatrist that she has taken 1/2 bottle of Wellbutrin, some Prednisone and Ativan -- mental status back to baseline x 2 days only needed 1 dose of Haldol on Hospital day 1 -- all psych meds held for now PRN Haldol for agitation evaluated by Psych, recommend inpatient Psych care, patient very willing advised to d/c 1:1 observation for transfer to when bed available -- continue telemetry monitoring, supportive care POSSIBLE SEIZURE EPISODE possibly from Wellbutrin overdose EEG: essentially normal seizure precautions - Neuro consulted, anticonvulsants not recommended at this time appreciate the input UTI Ruled out urine cultures negative Ciprofloxacin discontinued asymptomatic ACUTE CVA RULED OU T CT head negative MRI brain ordered: negative EPISODE OF HEMATEMESIS, possible UPPER GI BLEED -- per , she had dried vomit with some blood when he found her early AM -- Hg 14 to 11.7--> stable at 12 -- no abdominal pain ,nausea, recurrence of vomiting no melena,hematochezia since -- started on Protonix drip, changed to Protonix BID--> change to Protonix daily diet advanced to regular diet, tolerating well -- GI Dr. Block consulted no EGD at this time appreciate the input COAG NEG STAPH IN 1 OUT 2 BLOOD CULTURES - likely contaminant - afebrile, no leukocytosis since admission - d/c Levaquin - repeat blood culture 09/20/16 for confirmation ff up results ACUTE RENAL FAILURE -- crea back to baseline gentle IV fluids given DEPRESSION patient has been having difficulty with depressive symptoms since daughter last year patient usually takes Citalopram, Mirtazipine, Amitryptiline prescribed by PCP ( held for now) -- evaluated by Psych, recommend inpatient Psych care, patient very willing advised to d/c 1:1 observation for transfer to 3s when bed available HYPERTENSION no history of HTN but BP has been persistently elevated since admission Amlodipine 5mg po daily started BP improving, continue to monitor MILD LOWER LEG EDEMA - only on SCDs - check Doppler US - leg elevation, ambulation encouraged PULMONARY NODULE ASPIRATION PNEUMONIA ruled out CT chest: no signs of aspiration, (+) stable nodule "No change in a 7 mm right upper lobe irregular nodule since exam of September 25, 2015. A follow-up CT in 6 months to ensure stability is recommended" -- repeat CT chest in 6 months to follow pulmonary nodule MIGRAINE HEADACHE, CHRONIC -- PRN Tylenol DVT PROPH SCDs only for now encouraged ambulation holding anticoagulation due to suspected GI bleed FULL CODE DISPOSITION anticipate transfer to 3s when bed is available PCP follow up with Dr. Glaser in 1 week post discharge Current Inpatient Medications: Current Inpatient Medications Medications (Trade) Dose Ordered Sig/King Route Start Time Stop Time Status Last Admin Dose Admin Acetaminophen (Tylenol Tab) 650 mg Q4H PRN PO 09/16/16 08:30 10/16/16 08:29 09/19/16 10:53 325 MG Ondansetron HCl (Zofran Inj) 4 mg Q6H PRN IV 09/16/16 08:30 10/16/16 08:29 Benztropine Mesylate (Cogentin Inj) 1 mg Q4 PRN IV 09/16/16 15:45 10/16/16 15:44 Haloperidol Lactate (Haldol Inj) 5 mg DAILY PRN IM 09/17/16 07:30 10/17/16 07:29 Pantoprazole Sodium (Protonix Tab) 40 mg QAM PO 09/19/16 09:00 10/19/16 08:59 09/19/16 07:59 40 MG Clonidine HCl (Catapres Tab) 0.1 mg Q6H PRN PO 09/18/16 10:15 10/18/16 10:14 09/18/16 19:56 0.1 MG Artificial Tears (Artificial Tears) 1 drops Q4H PRN OP 09/18/16 10:30 10/18/16 10:29 Nicotine (Nicoderm Cq 21MG Patch) 1 patch QAM TD 09/19/16 09:00 10/19/16 08:59 09/19/16 08:00 1 PATCH Miscellaneous (Remove Nicoderm Patch) 1 ea HS N/A 09/18/16 21:00 10/18/16 20:59 09/18/16 21:00 1 EA Levofloxacin 500 mg/Prmx 100 ml @ 100 mls/hr Q24H IV 09/18/16 16:00 09/20/16 15:59 09/18/16 18:01 100 MLS/HR Amlodipine Besylate (Norvasc Tab) 5 mg QAM PO 09/19/16 09:00 10/19/16 08:59 09/19/16 07:58 5 MG
[2016-09-19] MEDS ORDERED: ACET-1047 PO (13:32)
[2016-09-19] MEDS ORDERED: NRV5 PO (13:32)
[2016-09-19] MEDS ORDERED: CTP1X PO (13:32)
[2016-09-19] MEDS ORDERED: PRT40 PO (13:32)
[2016-09-19] MEDS ORDERED: NICO21DI4 TD (13:32)
[2016-09-19] MEDS ORDERED: Artificial Tears OP (13:32)
--- NOTE | 2016-09-19 13:42 | Discharge Instructions ---
Discharge Instructions Date of Service Sep 19, 2016. Admission Reason for Admission: Altered Mental Status Discharge Discharge Diagnosis / Problem: ALTERED MENTAL STATUS Discharge Goals Goal(s): Diagnostic testing, Therapeutic intervention Activity Recommendations Activity Level: Ambulates in room . Additional Information Patient informed of condition: Yes Advance Directives: No (UNKNOWN) DNR: No (PATIENT IS FULL CODE) Level of Care: Other (INPATIENT MENTAL HEALTH FACILITY ) Communicable Disease: No Prognosis: Improving Instructions / Follow-Up Instructions / Follow-Up MONITOR BP DAILY. MONITOR FOR FEVER, SIGNS OF GI BLEED. FOLLOW UP REPEAT BLOOD CULTURE RESULTS (ORDERED TO BE DRAWN 09/20/16). NO NSAIDS (RE: POSSIBLE GI BLEED) REPEAT CT CHEST IN 6 MONTHS TO FOLLOW UP RIGHT UPPER LOBE NODULE. FOLLOW UP WITH PRIMARY CARE PHYSICIAN DR. MINA WITHIN 1 WEEK FROM HOSPITAL DISCHARGE. PLEASE REFER TO HOSPITAL DISCHARGE SUMMARY FOR FURTHER DETAILS. CONTACT [facility] FOR QUESTIONS/CONCERNS. Current Hospital Diet Patient's current hospital diet: AHA Diet (Heart Healthy) Discharge Diet Recommended Diet: AHA Diet (Heart Healthy) Procedures Procedures Performed: BRAIN MRI, EEG Pending Studies Studies pending at discharge: yes List of pending studies: FOLLOW UP RESULTS OF BLOOD CULTURES DRAWN 09/20/16 Physician Orders On Transfer Special Precautions: MONITOR BP DAILY. MONITOR FOR FEVER, SIGNS OF GI BLEED. FOLLOW UP REPEAT BLOOD CULTURE RESULTS (ORDERED TO BE DRAWN 09/20/16). NO NSAIDS (RE: POSSIBLE GI BLEED) REPEAT CT CHEST IN 6 MONTHS TO FOLLOW UP RIGHT UPPER LOBE NODULE. FOLLOW UP WITH PRIMARY CARE PHYSICIAN DR. MINA WITHIN 1 WEEK FROM HOSPITAL DISCHARGE. PLEASE REFER TO HOSPITAL DISCHARGE SUMMARY FOR FURTHER DETAILS. CONTACT ANY [facility] FOR QUESTIONS/CONCERNS. Vital Signs: AT LEAST DAILY Laboratory Results Hemoglobin A1c Test 09/16/16 05:23 Range/Units Estimated Average Glucose 114 mg/dl Hemoglobin A1c 5.6 4.5-5.6 % Lipid Panel Test 09/17/16 05:10 Range/Units Triglycerides Level 85 0-150 mg/dl Cholesterol Level 185 0-200 mg/dl HDL Cholesterol 52 mg/dl Cholesterol/HDL Ratio 3.6 LDL Cholesterol, Calculated 116 mg/dl Medical Emergencies . Who to Call and When: Medical Emergencies: If at any time you feel your situation is an emergency, please call 911 immediately. . Non-Emergent Contact Non-Emergency issues call your: Primary Care Provider Call Non-Emergent contact if: you have a fever, your pain is not controlled, your pain is worsening, you have any medication questions . . "Provider Documentation" section prepared by Kemal Eduardo. . Core Measure Problem Core Measures: None
--- NOTE | 2016-09-19 15:27 | DIAGNOSTIC IMAGING REPORT ---
BILATERAL LOWER EXTREMITY VENOUS DOPPLER CLINICAL HISTORY: Bilateral lower extremity edema. COMPARISON STUDY: No previous studies for comparison. TECHNIQUE: Sonography of the deep venous system of the bilateral lower extremities was performed. Compression and augmentation were evaluated. FINDINGS: The bilateral common femoral, superficial femoral and popliteal veins were compressible. Augmentation was normal. Flow was shown within the deep calf vessels. IMPRESSION: No evidence of deep venous thrombus within the bilateral lower extremities. Electronically signed by: Ildefonso Alarcon M.D. 09/19/2016 3:25 PM Dictated Date/Time: 09/19/2016 3:25 PM
[2016-09-20 07:44] VITALS: BP_SYST 149; BP_SYST 173; BP_DIAS 78; BP_DIAS 90; PULSE 68; TEMP 36.8; O2SAT 98
[2016-09-20] MEDS: NICOTINE 21 MG/24 HR TDSY TD SCH (09:09)
[2016-09-20] MEDS: PANTOprazole SOD 40 MG TAB PO SCH (09:09)
[2016-09-20] MEDS: AMLODIPINE BESYLATE 5 MG TAB PO SCH (09:09)
[2016-09-20] MEDS: ACETAMINOPHEN 325 MG TAB PO PRN (09:10)
--- NOTE | 2016-09-20 11:52 | Progress Note ---
Medicine Progress Note Date & Time of Visit: Sep 20, 2016 at 11:00 . Subjective Tearful. Otherwise, doing fairly well. No fever. No chest pain. No cough or SOB. Appetite improved. No nausea or vomiting. 1 loose stool last night. No melena or hematochezia. Headache resolved since starting nicotine patch. . Objective Last 8 Hrs Date Time Temp Pulse Resp B/P (MAP) Pulse Ox O2 Delivery O2 Flow Rate FiO2 09/20/16 08:00 Room Air 09/20/16 07:44 36.8 68 16 173/78 (109) 98 Room Air 149/90 (109) Physical Exam: General- no distress Lungs- clear Heart- RRR Abdomen- + BS, soft, nontender Extremities- no pretibial edema or calf tenderness Neuro- alert . Laboratory Results: Date/Time Source Procedure Growth Status 09/20/16 08:20 Blood Blood Culture Pending Received 09/20/16 08:14 Blood Blood Culture Pending Received Assessment & Plan OVERDOSE Found to be confused at home. Apparently ingested bupropion and lorazepam. Brought to ED and admitted. Specific medical issues addressed below. Psychiatry consulted. ALTERED MENTAL STATUS Head CT & MRI negative. Probable metabolic encephalopathy secondary to overdose. Resolved. POSSIBLE SEIZURE Possible seizure, attributed to bupropion overdose. Neurology consulted. Neuroimaging by CT and MRI unremarkable. EEG unremarkable. No need for anticonvulsant therapy. ACUTE KIDNEY INJURY Serum creatinine on admission 1.4. Acute kidney injury probably due to volume depletion. Creatinine 09/19 0.92. DEPRESSION Management per Behavioral Health Team. UGI BLEED Reported blood or coffee grounds in emesis at home. Hgb at time of admission 14.2, fell as low as 11.8. Received pantoprazole. GI consulted. No need for EGD at this time. Probable gastritis or Palmira-Campos tear. Hgb day of discharge = 13.5. Avoid aspirin, NSAID's, and gastric irritants. Rx with pantoprazole for total of 4 weeks. May need EGD if H/H falls significantly or for signs / symptoms of gross GI bleeding. ABNORMAL UA UA showed WBC's and bacteria, but UA negative. Antibiotics discontinued. + BLOOD CULTURE 1 of 2 blood cultures 09/17 grew coag negative Staph. Coag neg Staph probable contaminant from skin. Antibiotics discontinued. Repeat blood cultures done on 09/20. Re-evaluate as necessary for fever or signs / symptoms of infection. DIARRHEA Only 1 episode. No need to check for C diff at this time. Check C diff PCR if more than 2 loose BM's a day. HEADACHE Neuroimaging by CT and MRI unremarkable. Probably secondary to nicotine withdrawal. Resolved. HYPERTENSION No prior history of hypertension. Systolic BP's as high as 185. Therapy with amlodipine initiated. BP this morning 173/78. Follow and titrate Rx. LOWER EXTREMITY EDEMA Venous duplex negative for DVT. Probably secondary to IV fluids. PULMONARY NODULE 7 mm RUL nodule noted on CT chest, no change compared to 09/25/15. Patient is a smoker. Repeat CT recommended in 6 months, then f/u per guidelines. SMOKING Nicotine patch. Ongoing counseling recommended. MIGRAINE HEADACHES Frequent migraines. Usually takes Advil Migraine at home. Need to avoid NSAID's due to UGI bleed. Try Fioricet in the short term for severe migraines. VTE PROPHYLAXIS Anticoagulants not utilized due to UGI bleed. SCD's ordered. Ambulating. DISPOSITION Arrangements being made for voluntary admission to Behavioral Health Unit at [facility]. Family Medicine follow-up with Dr. Glaser. . Consultants: Psychiatry GI Neurology . Procedures: cardiac monitoring CT head MRI brain EEG CT chest venous duplex lower extremities IV meds IV fluids . Current Inpatient Medications: Current Inpatient Medications Medications (Trade) Dose Ordered Sig/King Route Start Time Stop Time Status Last Admin Dose Admin Acetaminophen (Tylenol Tab) 650 mg Q4H PRN PO 09/16/16 08:30 10/16/16 08:29 09/20/16 09:10 650 MG Ondansetron HCl (Zofran Inj) 4 mg Q6H PRN IV 09/16/16 08:30 10/16/16 08:29 Benztropine Mesylate (Cogentin Inj) 1 mg Q4 PRN IV 09/16/16 15:45 10/16/16 15:44 Pantoprazole Sodium (Protonix Tab) 40 mg QAM PO 09/19/16 09:00 10/19/16 08:59 09/20/16 09:09 40 MG Clonidine HCl (Catapres Tab) 0.1 mg Q6H PRN PO 09/18/16 10:15 10/18/16 10:14 09/18/16 19:56 0.1 MG Artificial Tears (Artificial Tears) 1 drops Q4H PRN OP 09/18/16 10:30 10/18/16 10:29 Nicotine (Nicoderm Cq 21MG Patch) 1 patch QAM TD 09/19/16 09:00 10/19/16 08:59 09/20/16 09:09 1 PATCH Miscellaneous (Remove Nicoderm Patch) 1 ea HS N/A 09/18/16 21:00 10/18/16 20:59 09/19/16 21:10 1 EA Amlodipine Besylate (Norvasc Tab) 5 mg QAM PO 09/19/16 09:00 10/19/16 08:59 09/20/16 09:09 5 MG
[2016-09-20] MEDS ORDERED: FRCT/ PO (11:53)
--- NOTE | 2016-09-20 12:03 | Discharge Summary ---
Discharge Summary Date of Service Sep 20, 2016. Discharge Summary Admission Date: Sep 16, 2016 at 08:20 Discharge Date: Sep 20, 2016 Discharge Disposition: Acute care mental health Principal Diagnosis: polydrug overdose . Secondary Diagnoses/Problems: Other Acute Medical Problems: metabolic encephalopathy UGI bleed possible seizure acute kidney injury elevated blood pressures Chronic and Resolved Medical Problems: (1) Degenerative disc disease Status: Chronic (2) Depression Status: Chronic (3) Hypertension (new diagnosis 09/23) Status: Chronic (4) Migraine Status: Chronic (5) Pulmonary nodule Permanent Comment: 7 mm RUL nodule, stable 09/25/15 - 09/16/16; repeat 6 mos Status: Chronic Surgical Problems: (1) Status post section Status: Chronic . Procedures: cardiac monitoring CT head MRI brain EEG CT chest venous duplex lower extremities IV meds IV fluids . Consultations: Psychiatry GI Neurology . Medication Reconciliation New Medications: Acetamin/Butalbital/Caffeine (Fioricet) 1 Ea Tab 2 TAB PO Q6 PRN for severe migraine, #8 TAB Acetaminophen (Mapap) 325 Mg Tab 650 MG PO Q4H PRN for Pain or Fever for 10 Days Amlodipine Besylate (Amlodipine Besylate) 5 Mg Tab 5 MG PO QAM for 30 Days, #30 TAB Clonidine HCl (Clonidine HCl) 0.1 Mg Tab 0.1 MG PO Q6H PRN for systolic bp > 160 for 10 Days Nicotine (Nicoderm Cq) 21 Mg/24 Hr Dis 1 PATCH TD QAM for 10 Days Pantoprazole (Pantoprazole Sodium) 40 Mg Tab 40 MG PO QAM for 30 Days, #30 TAB [Artificial Tears] () 225 DROPS/15 ML SOLN 1 DROPS OP Q4H PRN for eye dryness for 10 Days Continued Medications: Multiple Vitamins W/ Calcium (One-A-Day Womens Formula) 1 Tab Tab 1 TAB PO DAILY Discontinued Medications: Alprazolam (Xanax) 0.25 Mg Tab 0.25 MG PO TID PRN for Anxiety, TAB Amitriptyline Hcl (Elavil) 25 Mg Tab 25 MG PO HS, TAB Citalopram Hydrobromide (Celexa) 40 Mg Tab 40 MG PO HS Hydrocodone/Acetaminophen 5MG/325MG ([place] 5MG/325MG) Tab 1 TABLET PO Q4H for Pain Ibuprofen (Advil Migraine) 200 Mg Cap 400 MG PO Q8 PRN for Pain Mirtazapine Soltab (Remeron Soltab) 30 Mg Soltab 30 MG PO HS, TAB Promethazine (Phenergan) 25 Mg Tab 25 MG PO Q6H PRN for Nausea or Vomiting, 0 Refills NAUSEA. MAX 2 PER DAY, 2 DAYS PER WEEK Admission Information HPI (per Admitting provider): 61 year old female with history of Chronic Migraine, Depression, presenting with altered mental status noted early this morning. Patient follows with Dr. Mina for PCP. History obtained from Al at the bedside as patient was confused. Per , patient usually has migraine headaches in the afternoon for which she takes Advil Migraine. Yesterday afternoon, came home from work to have lunch with the patient. She was apparently doing ok at that time. At 2:30pm, patient called her as she was feeling she was having a panic attack. advised her to take Xanax if she has any. He then came home in the evening and noted that the patient was sound asleep. At 430am this morning, heard the patient moaning, calling out from her room. He found her staring, eyes wide open, with dried vomit around her mouth and neck, with some tinge of blood. She was slurring her words and was disoriented. No facial drooping, patient was moving extremities equally. Patient noted to report pain on her right neck and right shoulder. He then summoned the EMS. At the ER, CT head negative for acute process. CXR also unrevealing. She was given Protonix drip, Levaquin, IV fluids. On my exam, patient was awake, but very irritable, occasionally cursing, uncoooperative. Declines full physical exam. She is oriented to person and place, not to time. Tangential thought process. Repeatedly says "i need to pee", "get the bed rivers off me". Full ROS cannot be assessed as patient was uncooperative. states he did not notice any other symptoms lately except patient has been having depressive symptoms since their daughter last year. Denies suidical ideations from the patient. . 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 Apparently ingested bupropion and lorazepam. Brought to ED and admitted. Specific medical issues addressed below. Psychiatry consulted. ALTERED MENTAL STATUS Head CT & MRI negative. Probable metabolic encephalopathy secondary to overdose. Resolved. POSSIBLE SEIZURE Possible seizure, attributed to bupropion overdose. Neurology consulted. Neuroimaging by CT and MRI unremarkable. EEG unremarkable. No need for anticonvulsant therapy. ACUTE KIDNEY INJURY Serum creatinine on admission 1.4. Acute kidney injury probably due to volume depletion. Creatinine 09/19 0.92. DEPRESSION Management per Behavioral Health Team. UGI BLEED Reported blood or coffee grounds in emesis at home. Hgb at time of admission 14.2, fell as low as 11.8. Received pantoprazole. GI consulted. No need for EGD at this time. Probable gastritis or Palmira-Campos tear. Hgb day of discharge = 13.5. Avoid aspirin, NSAID's, and gastric irritants. Rx with pantoprazole for total of 4 weeks. May need EGD if H/H falls significantly or for signs / symptoms of gross GI bleeding. ABNORMAL UA UA showed WBC's and bacteria, but UA negative. Antibiotics discontinued. + BLOOD CULTURE 1 of 2 blood cultures 09/17 grew coag negative Staph. Coag neg Staph probable contaminant from skin. Antibiotics discontinued. Repeat blood cultures done on 09/20. Re-evaluate as necessary for fever or signs / symptoms of infection. DIARRHEA Only 1 episode. No need to check for C diff at this time. Check C diff PCR if more than 2 loose BM's a day. HEADACHE Neuroimaging by CT and MRI unremarkable. Probably secondary to nicotine withdrawal. Resolved. HYPERTENSION No prior history of hypertension. Systolic BP's as high as 185. Therapy with amlodipine initiated. BP this morning 173/78. Follow and titrate Rx. LOWER EXTREMITY EDEMA Venous duplex negative for DVT. Probably secondary to IV fluids. PULMONARY NODULE 7 mm RUL nodule noted on CT chest, no change compared to 09/25/15. Patient is a smoker. Repeat CT recommended in 6 months, then f/u per guidelines. SMOKING Nicotine patch. Ongoing counseling recommended. MIGRAINE HEADACHES Frequent migraines. Usually takes Advil Migraine at home. Need to avoid NSAID's due to UGI bleed. Try Fioricet in the short term for severe migraines. VTE PROPHYLAXIS Anticoagulants not utilized due to UGI bleed. SCD's ordered. Ambulating. DISPOSITION Arrangements being made for voluntary admission to Behavioral Health Unit at [facility]. Family Medicine follow-up with Dr. Mina. Thank you for receiving this patient in transfer. Please call if you have any questions. Christoph Mosher . Total time spent on discharge = 45 min. This includes examination of the patient, discharge planning, medication reconciliation, and communication with other providers. . Discharge Instructions Date of Service Sep 19, 2016. Admission Reason for Admission: Altered Mental Status Discharge Discharge Diagnosis / Problem: ALTERED MENTAL STATUS Discharge Goals Goal(s): Diagnostic testing, Therapeutic intervention Activity Recommendations Activity Level: Ambulates in room . Additional Information Patient informed of condition: Yes Advance Directives: No (UNKNOWN) DNR: No (PATIENT IS FULL CODE) Level of Care: Other (INPATIENT MENTAL HEALTH FACILITY ) Communicable Disease: No Prognosis: Improving Instructions / Follow-Up Instructions / Follow-Up MONITOR BP DAILY. MONITOR FOR FEVER, SIGNS OF GI BLEED. FOLLOW UP REPEAT BLOOD CULTURE RESULTS (ORDERED TO BE DRAWN 09/20/16). NO NSAIDS (RE: POSSIBLE GI BLEED) REPEAT CT CHEST IN 6 MONTHS TO FOLLOW UP RIGHT UPPER LOBE NODULE. FOLLOW UP WITH PRIMARY CARE PHYSICIAN DR. MINA WITHIN 1 WEEK FROM HOSPITAL DISCHARGE. PLEASE REFER TO HOSPITAL DISCHARGE SUMMARY FOR FURTHER DETAILS. CONTACT ANY [facility] HOSPITALIST FOR QUESTIONS/CONCERNS. Current Hospital Diet Patient's current hospital diet: AHA Diet (Heart Healthy) Discharge Diet Recommended Diet: AHA Diet (Heart Healthy) Procedures Procedures Performed: BRAIN MRI, EEG Pending Studies Studies pending at discharge: yes List of pending studies: FOLLOW UP RESULTS OF BLOOD CULTURES DRAWN 09/20/16 Physician Orders On Transfer Special Precautions: MONITOR BP DAILY. MONITOR FOR FEVER, SIGNS OF GI BLEED. FOLLOW UP REPEAT BLOOD CULTURE RESULTS (ORDERED TO BE DRAWN 09/20/16). NO NSAIDS (RE: POSSIBLE GI BLEED) REPEAT CT CHEST IN 6 MONTHS TO FOLLOW UP RIGHT UPPER LOBE NODULE. FOLLOW UP WITH PRIMARY CARE PHYSICIAN DR. MINA WITHIN 1 WEEK FROM HOSPITAL DISCHARGE. PLEASE REFER TO HOSPITAL DISCHARGE SUMMARY FOR FURTHER DETAILS. CONTACT ANY [facility] HOSPITALIST FOR QUESTIONS/CONCERNS. Vital Signs: AT LEAST DAILY Laboratory Results Hemoglobin A1c Test 09/16/16 05:23 Range/Units Estimated Average Glucose 114 mg/dl Hemoglobin A1c 5.6 4.5-5.6 % Lipid Panel Test 09/17/16 05:10 Range/Units Triglycerides Level 85 0-150 mg/dl Cholesterol Level 185 0-200 mg/dl HDL Cholesterol 52 mg/dl Cholesterol/HDL Ratio 3.6 LDL Cholesterol, Calculated 116 mg/dl Medical Emergencies . Who to Call and When: Medical Emergencies: If at any time you feel your situation is an emergency, please call 911 immediately. . Non-Emergent Contact Non-Emergency issues call your: Primary Care Provider Call Non-Emergent contact if: you have a fever, your pain is not controlled, your pain is worsening, you have any medication questions . . "Provider Documentation" section prepared by Kemal Eduardo. . Core Measure Problem Core Measures: None .
[2016-09-20 12:05] VITALS: BP 149/90; PULSE 68; TEMP 36.8; O2SAT 98
[2016-09-20 12:53] LABS: COD UR NEGATIVE NG/ML (CUTOFF=50); HYDROCOD UR NEGATIVE NG/ML (CUTOFF=50); HYDROMOR UR NEGATIVE NG/ML (CUTOFF=50); MORPHINE UR NEGATIVE NG/ML (CUTOFF=50); NORHYDROCODONE CONF UR NEGATIVE NG/ML (CUTOFF=50); OXYMORPH UR 512 NG/ML (CUTOFF=50); PHENCYCLIDINE GC/MS NEGATIVE NG/ML (CUTOFF=25)
--- NOTE | 2016-09-21 10:38 | Progress Note ---
Progress Note Date of Service Sep 21, 2016. Progress Note [place] PDMP database queried. No concerns. .
[2016-09-21] MEDS ORDERED: CITA40TA12 PO (11:11)
[2016-09-21] MEDS ORDERED: AMIT25TA9 PO (11:12)
[2016-09-21] MEDS ORDERED: MIRT30TA2 PO (11:12)
== END 2016-09-20 14:33 | DRG 917 ==
LOC: C.EDB 05:36 → C.2E 08:20 → ENRESERV 08:30 → EDBEDREQ 08:34 → ENRESERV 09-19 17:28 → C.MS2W 09-19 18:19
PROVIDERS: ADMIT Internal Medicine; ATTEND Hospitalist
DX: T42.4X2A Poisoning by benzodiazepines, intentional self-harm, initial encounter (principal); K22.6 Gastro-esophageal laceration-hemorrhage syndrome; G92 Toxic encephalopathy; N17.9 Acute kidney failure, unspecified; F32.9 Major depressive disorder, single episode, unspecified; G43.809 Other migraine, not intractable, without status migrainosus; R56.9 Unspecified convulsions; R03.0 Elevated blood-pressure reading, without diagnosis of hypertension; R19.7 Diarrhea, unspecified; R60.0 Localized edema; R91.1 Solitary pulmonary nodule; Z79.52 Long term (current) use of systemic steroids; Z79.899 Other long term (current) drug therapy; F17.200 Nicotine dependence, unspecified, uncomplicated

== ENCOUNTER 2016-09-20 14:33 | Inpatient (IN) | payer OTHER ==
[~2016-09-20] VITALS: Ht 172.7 cm; Wt 83.0 kg
[~2016-09-20 14:33] MED LIST changes: +ACET-1047 PO; -ALPR0.25 PO; -AMT25 PO; -ASPI-390 PO; +Artificial Tears OP; -CITA40TA12 PO; -CLIN300C2 PO; +CTP1X PO; +FRCT/ PO; -HYDR-5688 PO; -IBUP-1459 PO; +NICO21DI4 TD; +NRV5 PO; -PRED10TA PO; -PROM25TA PO; +PRT40 PO
[2016-09-20] MEDS ORDERED: NURSING VERBAL MED ORDER ONE (15:00)
[2016-09-20] MEDS ORDERED: hydrOXYzine HCL 25 MG TAB PO PRN (15:15)
[2016-09-20] MEDS ORDERED: MAGNESIUM HYDROXIDE SUSP 30 ML UDC PO PRN (15:15)
[2016-09-20] MEDS ORDERED: SODIUM CHLORIDE 0.65% NA SOLN 45 ML (OCEAN) PRN (15:15)
[2016-09-20] MEDS ORDERED: ACETAMINOPHEN 325 MG TAB PO PRN (15:15)
[2016-09-20] MEDS ORDERED: ALUMINUM/MAGNESIUM SUSP 30 ML UDC PO PRN (15:15)
[2016-09-20] MEDS ORDERED: BISMUTH SUBSALICYLATE PER ML OMNICELL CHARGE PO PRN (15:15)
[2016-09-20] MEDS ORDERED: CLONIDINE HCL 0.1 MG TAB PO PRN (16:15)
[2016-09-20 16:26] VITALS: BP 120/81; PULSE 76; TEMP 36.6; Ht 172.7 cm; Wt 83.0 kg
[2016-09-20] MEDS ORDERED: ARTIFICIAL TEARS OP SOLN OP PRN ×2 (16:30)
[2016-09-20] MEDS: hydrOXYzine HCL 25 MG TAB PO PRN ×2 (21:05→23:25)
[2016-09-21 06:57] VITALS: BP_SYST 157; BP_SYST 168; BP_DIAS 71; BP_DIAS 80; PULSE 79; PULSE 80; TEMP 36.8
[2016-09-21] MEDS: NICOTINE 21 MG/24 HR TDSY TD SCH (07:44)
[2016-09-21] MEDS: ACETAMINOPHEN 325 MG TAB PO PRN ×2 (07:45→16:39)
[2016-09-21] MEDS: MULTIVITAMIN TAB PO SCH (07:45)
[2016-09-21] MEDS: PANTOprazole SOD 40 MG TAB PO SCH (07:45)
[2016-09-21] MEDS: AMLODIPINE BESYLATE 5 MG TAB PO SCH (07:45)
[2016-09-21] MEDS: BUTALBITAL/ACETAMIN/CAFFEINE TAB PO PRN ×2 (09:08→19:58)
[2016-09-21] MEDS ORDERED: CITA40TA12 PO (11:11)
[2016-09-21] MEDS ORDERED: AMIT25TA9 PO (11:12)
[2016-09-21] MEDS ORDERED: MIRT30TA2 PO (11:12)
[2016-09-21] MEDS ORDERED: IBUPROFEN 800 MG TAB PO ONE (11:15)
--- NOTE | 2016-09-21 12:00 | Psychiatric History & Physical ---
History Date of Service Sep 21, 2016. Identifying Data Marcus Fischer is a 61-year-old female who currently lives in [place], [place] with her . Marcus Fischer was admitted on a 201 voluntary commitment. Patient is transfered from the medical floor after treatment for polydrug overdose. Information provided by the patient is considered to be reliable. Chief Complaint "the anniversary is this month". History of Present Illness Patient is a 61 yo female who was admitted to the medical floor on September 15 after being brought to the ED by ambulance. found her confused with blood tinged vomit. She has been grieving the of her 24 year old daughter who on October 04, 2015 from a heroin overdose. She had a panic attack and talked with her on the phone, which she reports is what she usually does when she is having a panic attack because he can calm her down. She had previously taken Xanax for panic attacks but did not have anymore. She reports not remember taking a pills but she was found to have taken Wellbutrin, Prednisone and Ativan which she says where in her cupboard even thought she is not currently taking or prescribed any of these medications. Today she reports no recollection of taking an overdose. She denies that it was a suicide attempt because she doesn't believe she will ever see her daughter again if she ends her own life. She report that she has been struggling with worsening depression and anxiety since her daughters . She was treated for depression since the of her daughter and reports that she had depression. She has been taking Celexa for the past 13 years. She reports additional stressors over the past couple of months including worsening depression after Mothers' Day, anniversary of daughters in September. Additionally her PCP, Dr. Morgan, of the past 13 years has dismissed her from his care sometime in the past 1-2 months. She reports that she had taken all of her Xanax (denies taking more than prescribed which according to external med history was 0.25 mg tid as needed with 30 tabs last filled on . A friend gave her Ativan and a pain medicine and when she went into Dr. Morgan's office for her follow up appointment she had a random drug screen. She reports that Dr. Morgan dismissed her from her care "on the spot." She is very distressed about this because he has been very helpful and supportive to her since her daughter's . She has been hopeful that he would change his mind and has sent him an email to which he responded that she had enough celexa to last until October. She has made no attempt to find another provider. She feels, hopeless and helpless and expresses guilt. She has been having trouble sleeping and appetite is decreased. She has panic attacks more frequently. Patient reported to staff that she is feeling guilty about cashing in $10,000 work of bonds to pay her daughter's debt. Her does not know she did this and he has told her that she would divorce her if she did this. She has also experienced the loss of her parents, dog and daughter's cat in the last 4 years. She has been estranged from her only sibling for many years. Patient denies any violence toward others in the past 6 months or ever. Past Psychiatric History Current OP Treatment: no current treatment Prior OP Treatment: no prior treatment Prior Psych Hospitalizations: none Access to a Gun: Yes (antique guns that are not functional and a 22. ) Suicide Attempts: No Past Medical/Surgical History History of Concussion/Seizure: Yes (concussion over 10 years ago, no history of seizure) Allergies Allergies: Coded Allergies: Mushroom (Verified Allergy, Severe, ANAPHYLAXIS, 09/17/16) Penicillins (Verified Allergy, Mild, SWELLING BREATHING STOPS, 02/13/16) Acetazolamide (Unverified Allergy, Unknown, RASH/HIVES, 02/13/16) Molds and Smuts (Verified Allergy, Unknown, UNKNOWN, 02/13/16) Sumatriptan (Verified Adverse Reaction, Unknown, flushing,heart racing, ) Home Medications Scheduled Amitriptyline Hcl (Elavil), 25 MG PO HS Amlodipine Besylate (Amlodipine Besylate), 5 MG PO QAM Citalopram Hydrobromide (Celexa), 1 TAB PO HS Mirtazapine Soltab (Remeron Soltab), 30 MG PO HS Multiple Vitamins W/ Calcium (One-A-Day Womens Formula), 1 TAB PO DAILY Nicotine (Nicoderm Cq), 1 PATCH TD QAM Pantoprazole (Pantoprazole Sodium), 40 MG PO QAM Scheduled PRN Acetamin/Butalbital/Caffeine (Fioricet), 2 TAB PO Q6 PRN for severe migraine Acetaminophen (Mapap), 650 MG PO Q4H PRN for Pain or Fever Clonidine HCl (Clonidine HCl), 0.1 MG PO Q6H PRN for systolic bp > 160 [Artificial Tears], 1 DROPS OP Q4H PRN for eye dryness Family History Cancer Diabetes mellitus Heart disease Hypertension Kidney disease Kidney stones History of Suicide: No History of Substance Abuse: Yes (daughter) Psychiatric History: Yes (mt) Alcohol Use Alcohol Use In Past 12 Months: Yes (ramirez in June on daughter's birthday, ) AUDIT Total Score: 2 Smoking Use Smoking Status: Current Every Day Smoker (one pack per day, doesn't want to quit and says it's the only thing she enjoys, says she knows she should quit.) Substance History marijuana once in the past year. 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 Gastrointestinal: nausea Neurologic: reports: other (migraine) Examination Physical Examination reviewed H and P from medical floor and accepted for our purposes on the mental health unit. Vital Signs Vital Signs Past 12 Hours Date Time Temp Pulse Resp B/P (MAP) Pulse Ox O2 Delivery O2 Flow Rate FiO2 09/21/16 06:57 36.8 80 16 157/80 79 168/71 Laboratory Results Labs from medical stay reviewed and essentially within normal limits with exception of RBC low 4.19, random glucose 134, Total protein 6.0 and albumin 3.1 Toxicology positive for opiates EEG - normal. Mental Examination During interview pt is: alert and oriented, other (patient lying in bed with hand over face. Has headache) Appearance: appropriately dressed, disheveled Eye contact is: poor Motor behavior is: no abnormal motor movements Speech: normal in rate, rhythm & volume Affect: mood congruent, labile Mood is: depressed Thought content: reality based without delusions Suicidal thought are: denied Homicidal thoughts are: denied Cognition: language grossly intact Intelligence estimated to be: average Insight: impaired Judgement: impaired Impression / Recommendations Impression Patient is a 61 year old female with a history of depression and anxiety with multiple stressors. She had been prescribed Xanax for panic attacks and hydrocodone for migraine by her PCP but was dismissed from his care within the past 2 months after having a drug screen that was positive for things he did not prescribe. She is not taking full responsibility for her breach of their controlled substance contract. She is profoundly depressed and has taken an overdose of multiple medications that were in her home. Even though she denies that this was a suicide attempt, she does not remember taking the pills and requires inpatient mental health treatment due to the severity of her symptoms and the risk of harm to herself. She will need a robust safety plan including asking her to bring in all the pills in the home that are not current prescriptions, should manage patient's medications when she returns home so that she does not have access to more than her supply for the day, clarify the status of the antique guns and the 22 that are in the home and secure so patient has no access. She also needs psychiatric prescriber, therapist and a PCP. She may need a neurology referral for migraine. Inventory Assets Strengths: supportive , willingness for treatment Needs: psychiatric providers, therapist, coping skills. Risk Factors Assessment : Yes /single/: No Access to guns: Yes Health problems: No Mental Health Diagnoses: Yes Previous attempt: No Family history of suicide: No Previous psychiatric stay: No Hopelessness: Yes Smoker: Yes Protective Factors Assessment Hindu beliefs: Yes : Yes Responsible for young children: No Stable relationships: Yes Supportive family: Yes Recommendations (1) Polysubstance overdose - Admitted to locked unit with q 15 min safety checks Patient will need a robust safety plan including no access to guns, no access to med and disposal of unused medications in the home. (2) Major depressive disorder, recurrent episode with anxious distress 09/22 - Needs psychiatric prescriber and therapy. - encourage participation in group and individual therapy - encourage health coping skills - patient would benefit from support group for parents of children who have from opiate overdose - continue Remeron 30 mg at bedtime - vistaril as needed for anxiety, will try to avoid benzodiapines as patient overusing and using a friend's ativan - Patient agrees to trial of Lexapro and will start at 10 mg and titrate as tolerated. Reviewed black box warning for suicidaltiy same as celexa and most common side effects. (3) Migraine 09/21 continue amitriptyline, prn pain meds. Patient needs a PCP to follow Reviewed [place] PDMP database before prescribing controlled substances Recommend neurology follow up as outpatient, If migraines continue during her stay here may need consult Discussed patient with Dr. Funes who had seen this patient on consult on the medical floor. He did recommend a oxycodone as she had taken at home and restarting amitriptyline and that they would be happy to see her outpatient if headaches continue. CPT Code Initial Hospital Care: 84338
[2016-09-21] MEDS ORDERED: LORAZEPAM 1 MG TAB PO STA (12:15)
[2016-09-21] MEDS ORDERED: OXYCODONE HCL IR 5 MG TAB (IMMEDIATE RELEASE) PO STA (15:00)
[2016-09-21 19:55] VITALS: BP_SYST 112; BP_SYST 150; BP_DIAS 74; BP_DIAS 76; PULSE 85; PULSE 86
[2016-09-21] MEDS: ESCITALOPRAM OXALATE 10 MG TAB PO SCH (21:14)
[2016-09-21] MEDS: AMITRIPTYLINE HCL 25 MG TAB PO SCH (21:14)
[2016-09-21] MEDS: MIRTAZAPINE TAB 15 MG TAB PO SCH (21:15)
[2016-09-22 07:02] VITALS: BP_SYST 157; BP_SYST 170; BP_DIAS 77; BP_DIAS 79; PULSE 82; PULSE 84; TEMP 36.8
[2016-09-22] MEDS: MULTIVITAMIN TAB PO SCH (09:02)
[2016-09-22] MEDS: AMLODIPINE BESYLATE 5 MG TAB PO SCH (09:02)
[2016-09-22] MEDS: NICOTINE 21 MG/24 HR TDSY TD SCH (09:02)
[2016-09-22] MEDS: PANTOprazole SOD 40 MG TAB PO SCH (09:02)
[2016-09-22 10:50] VITALS: BP 129/82; PULSE 80
--- NOTE | 2016-09-22 12:07 | Psychiatric Progress Notes ---
Progress Note Date of Service Sep 22, 2016. Interval History Marcus Fischer is a 61-year-old female who currently lives in [place], [place] with her . Marcus Fischer was admitted on a 201 voluntary commitment. Patient is transfered from the medical floor after treatment for polydrug overdose. Patient daughter from opiate overdose September 2015 which is primary stressor. Chief Complaint "terrible day yesterday". Subjective Patient was seen & assessed interval progress reviewed with treatment team. Patient had migraine headache yesterday which was quite distressing. She talks at length about how her migraines are weather related. She complained about the noise her and not having access to her Advil migraine and hydrocodone, the noise on the unit. Her headache was relieved in the evening after a second dose of Fioricet and she slept in the group room and reports a very good night's sleep. She has no physical complaints today. She is still hopeful that Dr. Morgan with continue to see her without prescribing controlled substances. She does verbalize responsibility for her actions in regard to misuse of controlled substances. She is agreeable to neurology follow up and request as grief counselor. Explained that the is a lot to put in place, particularly going into the weekend, before we would consider her ready for discharge. She does not wish to rescind her 72 hour notice at this time however. She continues to deny that she took the overdose with the intention to kill herself. She denies recollection about what happened and tearfully repeats that she believes if she intentional kills herself she will go to [facility] and so never see her daughter again. She relates that she has more to offer the other patients than they have to offer her because no one else has experienced what she has. She is willing to participate in groups because "I'm here for now." Review of Systems negative Sleep Information Total Hours of Sleep: 8.75 Meal Information Percent of Breakfast Consumed: 100 Percent of Lunch Consumed: 0 Percent of Dinner Consumed: 25 Mental Status Exam During interview pt is: alert and oriented, cooperative Appearance: appropriately dressed (in fuzzy purple robe), disheveled Eye contact is: good Motor behavior is: no abnormal motor movements Speech: normal in rate, rhythm & volume Affect: mood congruent, labile Mood is: depressed Thought process: goal directed, clear, coherent Thought content: reality based without delusions Suicidal thought are: denied Homicidal thoughts are: denied Cognition: language grossly intact, other (memory impaired regarding circumstances of overdose) Intelligence estimated to be: average Insight: impaired Judgement: impaired Impression Patient is a 61 year old female with a history of depression and anxiety with multiple stressors. She had been prescribed Xanax for panic attacks and hydrocodone for migraine by her PCP but was dismissed from his care within the past 2 months after having a drug screen that was positive for things he did not prescribe. She is not taking full responsibility for her breach of their controlled substance contract. She is profoundly depressed and has taken an overdose of multiple medications that were in her home. Even though she denies that this was a suicide attempt, she does not remember taking the pills and requires inpatient mental health treatment due to the severity of her symptoms and the risk of harm to herself. She will need a robust safety plan including asking her to bring in all the pills in the home that are not current prescriptions, should manage patient's medications when she returns home so that she does not have access to more than her supply for the day, clarify the status of the antique guns and the 22 that are in the home and secure so patient has no access. She also needs psychiatric prescriber, therapist and a PCP. She may need a neurology referral for migraine. Plan (1) Polysubstance overdose - Admitted to locked unit with q 15 min safety checks Patient will need a robust safety plan including no access to guns, no access to med and disposal of unused medications in the home. 09/22 - Asked patient to have bring in unused medications for disposal. (2) Major depressive disorder, recurrent episode with anxious distress 09/21 - Needs psychiatric prescriber and therapy. - encourage participation in group and individual therapy - encourage health coping skills - patient would benefit from support group for parents of children who have from opiate overdose - continue Remeron 30 mg at bedtime - vistaril as needed for anxiety, will try to avoid benzodiapines as patient overusing and using a friend's ativan - Patient agrees to trial of Lexapro and will start at 10 mg and titrate as tolerated. Reviewed black box warning for suicidaltiy same as celexa and most common side effects. 09/22 Patient resistant to psychiatric prescriber and prefers to see Dr. Morgan. This will need to be clarified as yesterday she indicated to me that he had dismissed her entirely. Patient would like therapist who specializes in bereavement/grief. No problems with Lexapro and would titrate tomorrow if she continues to tolerate. (3) Migraine 09/21 continue amitriptyline, prn pain meds. Patient needs a PCP to follow Reviewed [place] PDMP database before prescribing controlled substances Recommend neurology follow up as outpatient, If migraines continue during her stay here may need consult Discussed patient with Dr. Funes who had seen this patient on consult on the medical floor. He did recommend a oxycodone as she had taken at home and restarting amitriptyline and that they would be happy to see her outpatient if headaches continue. 09/22 Patient agreeable to seeing neurology outpatient. please make an appointment with [facility] neurology. Would recommend replacing amitriptyline due to lethality of this drug in overdose. (4) Hypertension Patient hypertensive on medical floor and started on medication. Patient has BP discrepancies between arms. She will need follow up with PCP after discharge as soon as possible. Discharge / Aftercare Planning Primary Care Physician: Name: Dr Morgan Therapist: Name: my Assistant Football Coach: Name: my Visit Code E&M Code: 41019 Inventory Assets Strengths: supportive , willingness for treatment Needs: psychiatric providers, therapist, coping skills. Risk Factors Assessment : Yes /single/: No Health problems: No Mental Health Diagnoses: Yes Previous attempt: No Family history of suicide: No Previous psychiatric stay: No Hopelessness: Yes Smoker: Yes Protective Factors Assessment Confucianism beliefs: Yes : Yes Responsible for young children: No Stable relationships: Yes Supportive family: Yes Data Vital Signs Last 24 Hrs: Date Time Temp Pulse Resp B/P (MAP) Pulse Ox O2 Delivery O2 Flow Rate FiO2 09/22/16 10:50 80 16 129/82 09/22/16 07:02 36.8 82 16 157/79 84 170/77 09/21/16 19:55 85 150/76 86 112/74 Meds Administered Last 24 Hrs: Current Inpatient Medications Medications (Trade) Dose Ordered Sig/King Route Start Time Stop Time Status Last Admin Dose Admin Al Hydroxide/Mg Hydroxide (Maalox Susp) 30 ml Q4H PRN PO 09/20/16 15:15 10/20/16 15:14 Bismuth Subsalicylate (Kaopectate Liqd) 15 ml DAILY PRN PO 09/20/16 15:15 10/20/16 15:14 Magnesium Hydroxide (Milk Of Magnesia Susp) 30 ml DAILY PRN PO 09/20/16 15:15 10/20/16 15:14 Sodium Chloride ([place] Nasal [place]) PRN PRN NA 09/20/16 15:15 10/20/16 15:14 Hydroxyzine HCl (Vistaril Tab) 50 mg HSZ PRN PO 09/20/16 15:15 10/20/16 15:14 09/20/16 23:25 50 MG Hydroxyzine HCl (Vistaril Tab) 25 mg Q4H PRN PO 09/20/16 15:15 10/20/16 15:14 09/21/16 11:41 25 MG Acetaminophen/ Butalbital/ Caffeine (Fioricet Tab) 2 tab Q6 PRN PO 09/20/16 16:15 10/20/16 16:14 09/21/16 19:58 2 TAB Acetaminophen (Tylenol Tab) 650 mg Q4H PRN PO 09/20/16 16:15 10/20/16 16:14 09/21/16 16:39 650 MG Amlodipine Besylate (Norvasc Tab) 5 mg QAM PO 09/21/16 09:00 10/21/16 08:59 09/22/16 09:02 5 MG Clonidine HCl (Catapres Tab) 0.1 mg Q6H PRN PO 09/20/16 16:15 10/20/16 16:14 Nicotine (Nicoderm Cq 21MG Patch) 1 patch QAM TD 09/21/16 09:00 10/21/16 08:59 09/22/16 09:02 1 PATCH Pantoprazole Sodium (Protonix Tab) 40 mg QAM PO 09/21/16 09:00 10/21/16 08:59 09/22/16 09:02 40 MG Multivitamins (Multivitamin Tab) 1 tab DAILY PO 09/21/16 09:00 10/21/16 08:59 09/22/16 09:02 1 TAB Artificial Tears (Artificial Tears) 1 drops Q4H PRN OP 09/20/16 16:30 10/20/16 16:29 Miscellaneous (Remove Nicoderm Patch) 1 ea HS N/A 09/20/16 22:00 10/20/16 21:59 09/21/16 21:14 1 EA Mirtazapine (Remeron Tab) 30 mg HS PO 09/21/16 22:00 10/21/16 21:59 09/21/16 21:15 30 MG Escitalopram Oxalate (Lexapro Tab) 10 mg HS PO 09/21/16 22:00 10/21/16 21:59 09/21/16 21:14 10 MG Amitriptyline HCl (Elavil Tab) 25 mg HS PO 09/21/16 22:00 10/21/16 21:59 09/21/16 21:14 25 MG
[2016-09-22] MEDS: ACETAMINOPHEN 325 MG TAB PO PRN (17:04)
[2016-09-22] MEDS: AMITRIPTYLINE HCL 25 MG TAB PO SCH (21:48)
[2016-09-22] MEDS: MIRTAZAPINE TAB 15 MG TAB PO SCH (21:49)
[2016-09-22] MEDS: ESCITALOPRAM OXALATE 10 MG TAB PO SCH (21:49)
[2016-09-23 07:11] VITALS: BP_SYST 134; BP_SYST 144; BP_DIAS 77; BP_DIAS 85; PULSE 77; PULSE 78; TEMP 36.6
[2016-09-23] MEDS: MULTIVITAMIN TAB PO SCH (08:19)
[2016-09-23] MEDS: AMLODIPINE BESYLATE 5 MG TAB PO SCH (08:19)
[2016-09-23] MEDS: PANTOprazole SOD 40 MG TAB PO SCH (08:19)
[2016-09-23] MEDS: NICOTINE 21 MG/24 HR TDSY TD SCH (08:20)
[2016-09-23] MEDS: ACETAMINOPHEN 325 MG TAB PO PRN ×2 (10:33→16:59)
[2016-09-23] MEDS ORDERED: VARENICLINE 0.5 MG TAB PO SCH (14:30)
[2016-09-23] MEDS ORDERED: VARENICLINE (CHANTIX) 1 MG TAB PO SCH (14:30)
--- NOTE | 2016-09-23 15:51 | Psychiatric Progress Notes ---
Progress Note Date of Service Sep 23, 2016. Interval History Marcus Fischer is a 61-year-old female who currently lives in [place], [place] with her . Marcus Fischer was admitted on a 201 voluntary commitment. Patient is transfered from the medical floor after treatment for polydrug overdose. Patient daughter from opiate overdose September 2015 which is primary stressor. Chief Complaint "There is not much that can be done for grief ". Subjective Patient was seen & assessed interval progress reviewed with nursing. Pt has signed a 72 hour notice that will at 1400 on Sunday the 24 of September. She is not planning to rescind it as of now. She denied SI, she does not recall taking overdose of meds and finds that out of character for her. It has been clarified that Dr. Morgan will continue to see her to rx meds that are not controlled substances. She is wearing the nicotine patch and finding it helpful but is desiring to smoke while expressing some thoughts about willingness to try to quit smoking. She is denying HI or agitation. She is denying psychotic features or manic symptoms. She is denying s/e to her medications. SHe had a migraine headache a couple days ago that she attributes being related weather conditions. She is seeking fioricet or ativan for once discharged since took the meds on the to try to abort the migraine. She reports some back pain that she attributes to sleeping in the group room, of her choice due to her loud snoring per pt. She took tyl for her back pain this morning and felt it was alleviating her pain. She is finding her grief is coming in waves but is manageable. She wants to be there for her and finding his visits as helpful to her as well. Review of Systems Constitutional: No fever, No chills, No sweats, No weight loss, No weakness, No fatigue, No problem reported ENT: No hearing loss, No unusual epistaxis, No nasal symptoms, No sore throat, No tinnitus, No dental problems, No trouble swallowing, No problem reported Respiratory: No cough, No sputum, No wheezing, No shortness of breath, No dyspnea on exertion, No dyspnea at rest, No hemoptysis, No problem reported Cardiovascular: No chest pain, No orthopnea, No PND, No edema, No claudication , No palpitations, No problem reported Abdomen: No pain, No nausea, No vomiting, No diarrhea, No constipation, No GI bleeding, No problem reported Musculoskeletal: + problem reported (back pain) Neurologic: No memory loss, No paralysis, No weakness, No numbness/tingling, No vertigo, No balance problems, No problem reported Psychiatric: + problem reported (grief ) Sleep Information Total Hours of Sleep: 6.00 Meal Information Percent of Breakfast Consumed: 100 Percent of Lunch Consumed: 100 Percent of Dinner Consumed: 95 Mental Status Exam During interview pt is: alert and oriented, cooperative Appearance: appropriately dressed, disheveled Eye contact is: good Motor behavior is: no abnormal motor movements Speech: normal in rate, rhythm & volume Affect: mood congruent Mood is: other ("okay...some waves of grief" ) Thought process: goal directed, clear, coherent Thought content: reality based without delusions Suicidal thought are: denied Homicidal thoughts are: denied Hallucinations: denies auditory, denies visual Cognition: language grossly intact, other (memory impaired regarding details of overdose only) Intelligence estimated to be: average Insight: impaired, fair Judgement: impaired Impression Patient is a 61 year old female with a history of depression and anxiety with multiple stressors. She had been prescribed Xanax for panic attacks and hydrocodone for migraine by her PCP but was dismissed from his care within the past 2 months after having a drug screen that was positive for things he did not prescribe. She is not taking full responsibility for her breach of their controlled substance contract. She is profoundly depressed and has taken an overdose of multiple medications that were in her home. Even though she denies that this was a suicide attempt, she does not remember taking the pills and requires inpatient mental health treatment due to the severity of her symptoms and the risk of harm to herself. robust safety plan - Guns secure and addressing pills that are not current scripts. Pt signed 72 hour notice expiring Sunday 09/24 1400 and is not seeming to rescind this. She is also focused on controlled substance as prn for migraine abortive aspect for once leaves hospital. PCP will see pt for medical management of meds that are not controoled substances. Pt should have a psychiatric prescriber and therapist as well. [facility] has neurology appt in November Plan (1) Polysubstance overdose - Admitted to locked unit with q 15 min safety checks Patient will need a robust safety plan including no access to guns, no access to med and disposal of unused medications in the home. 09/22 - Asked patient to have bring in unused medications for disposal. 09/23 pt is focused on controlled meds for migraine control with also minimizing aspects of recent overdose of medications. (2) Major depressive disorder, recurrent episode with anxious distress 09/21 - Needs psychiatric prescriber and therapy. - encourage participation in group and individual therapy - encourage health coping skills - patient would benefit from support group for parents of children who have from opiate overdose - continue Remeron 30 mg at bedtime - vistaril as needed for anxiety, will try to avoid benzodiapines as patient overusing and using a friend's ativan - Patient agrees to trial of Lexapro and will start at 10 mg and titrate as tolerated. Reviewed black box warning for suicidaltiy same as celexa and most common side effects. 09/22 Patient resistant to psychiatric prescriber and prefers to see Dr. Morgan. This will need to be clarified as yesterday she indicated to me that he had dismissed her entirely. Patient would like therapist who specializes in bereavement/grief. No problems with Lexapro and would titrate tomorrow if she continues to tolerate. 09/23 raised lexapro 20mg, maintained remeron at 30mg hs, addressing grief and related concerns (3) Migraine 09/21 continue amitriptyline, prn pain meds. Patient needs a PCP to follow Reviewed [place] PDMP database before prescribing controlled substances Recommend neurology follow up as outpatient, If migraines continue during her stay here may need consult Discussed patient with Dr. Funes who had seen this patient on consult on the medical floor. He did recommend a oxycodone as she had taken at home and restarting amitriptyline and that they would be happy to see her outpatient if headaches continue. 09/22 Patient agreeable to seeing neurology outpatient. please make an appointment with [facility] neurology. Would recommend replacing amitriptyline due to lethality of this drug in overdose. 09/23 pt interested in Fioricet or ativan as prn med for migraine abortive care. however given pt's recent OD and setting to leave under 72 hour notice and risks and concerns of such meds with pt's presentation of taking meds in the overdose but also in how taking controlled substances recently,this provider does not feel it is appropriate to prescribe this med at this time. Pt has restarted amitriptyline and is being encouraged to address migraines with outpt providers. (4) Hypertension Patient hypertensive on medical floor and started on medication. Patient has BP discrepancies between arms. She will need follow up with PCP after discharge as soon as possible. BP is trending downward on 09/23 (5) Nicotine dependence 09/23 continue nicotine patch 21mg a day addressed smoking cessation education and reviewed resources and medications to assist in quitting smoking. Pt is open to continuing patches and to adding chantix after detail review of Chantix. Will start Chantix at 0.5mg for first 3 days. with aim to increase to full dosage at normal schedule. Encouraging utilizing tobacco cessation resources fully approx 10 minutes spent on smoking cessation concerns . Discharge / Aftercare Planning Primary Care Physician: Name: Dr Morgan Phone Number: [phone] Date of Appointment: Oct 02, 2016 Time of Appointment: 1:20 Appointment Notes: Dr Morgan willing to see for non controlled substances Psychiatrist: Name: [facility] Phone Number: Date of Appointment: Nov 22, 2016 Time of Appointment: 815 am Appointment Notes: take insrc card, meds, 2 days notice to cancel, if no- show then no resched Therapist: Name: [facility] Phone Number: Appointment Notes: referral pending - they will call back Heel Boom Operator: Name: my Neurologist: Name: Dr. Shantel Talbert (she is on cancelation list for earlier apt) Phone Number: [phone] Date of Appointment: Nov 13, 2016 Time of Appointment: 950 am Appointment Notes: [address], [place] [address] Visit Code E&M Code: 21506 Inventory Assets Strengths: supportive , willingness for treatment Needs: psychiatric providers, therapist, coping skills. Risk Factors Assessment : Yes /single/: No Health problems: No Mental Health Diagnoses: Yes Previous attempt: No Family history of suicide: No Previous psychiatric stay: No Hopelessness: Yes Smoker: Yes Protective Factors Assessment Uatsdin beliefs: Yes : Yes Responsible for young children: No Stable relationships: Yes Supportive family: Yes Data Vital Signs Last 24 Hrs: Date Time Temp Pulse Resp B/P (MAP) Pulse Ox O2 Delivery O2 Flow Rate FiO2 09/23/16 07:11 36.6 77 16 144/77 78 134/85 Meds Administered Last 24 Hrs: Meds Administered (Past 24Hrs) Medications (Trade) Dose Ordered Sig/King Route Start Time Stop Time Status Last Admin Dose Admin Mirtazapine (Remeron Tab) 30 mg HS PO 09/21/16 22:00 10/21/16 21:59 09/22/16 21:49 30 MG Escitalopram Oxalate (Lexapro Tab) 10 mg HS PO 09/21/16 22:00 09/23/16 13:32 DC 09/22/16 21:49 10 MG Amitriptyline HCl (Elavil Tab) 25 mg HS PO 09/21/16 22:00 10/21/16 21:59 09/22/16 21:48 25 MG Varenicline (Chantix) 0.5 mg QAM PO 09/23/16 14:30 10/23/16 14:29 09/23/16 14:42 0.5 MG
[2016-09-23] MEDS ORDERED: NURSING VERBAL MED ORDER ONE (20:15)
[2016-09-23] MEDS: AMITRIPTYLINE HCL 25 MG TAB PO SCH (21:10)
[2016-09-23] MEDS: MIRTAZAPINE TAB 15 MG TAB PO SCH (21:11)
[2016-09-23] MEDS ORDERED: ESCITALOPRAM OXALATE 10 MG TAB PO SCH (22:00)
[2016-09-24 07:13] VITALS: BP_SYST 128; BP_SYST 142; BP_DIAS 67; BP_DIAS 80; PULSE 70; PULSE 73; TEMP 36.6
[2016-09-24] MEDS: MULTIVITAMIN TAB PO SCH (08:10)
[2016-09-24] MEDS: AMLODIPINE BESYLATE 5 MG TAB PO SCH (08:10)
[2016-09-24] MEDS: NICOTINE 21 MG/24 HR TDSY TD SCH (08:11)
[2016-09-24] MEDS: PANTOprazole SOD 40 MG TAB PO SCH (08:11)
[2016-09-24] MEDS ORDERED: FRCT/ PO (11:03)
[2016-09-24] MEDS ORDERED: MULT-160 PO (11:03)
[2016-09-24] MEDS ORDERED: AMIT25TA9 PO (11:03)
[2016-09-24] MEDS ORDERED: Artificial Tears OP (11:03)
[2016-09-24] MEDS ORDERED: PRT40 PO (11:03)
[2016-09-24] MEDS ORDERED: NRV5 PO (11:03)
[2016-09-24] MEDS ORDERED: LXP10 PO (11:04)
[2016-09-24] MEDS ORDERED: MIRT30TA2 PO (11:04)
[2016-09-24] MEDS ORDERED: NICO21DI4 TD (11:04)
--- NOTE | 2016-09-24 11:25 | Discharge Instructions ---
Discharge Information Report Includes Report will include the: Discharge Instructions & Summary Admission Admission Date / Time: Sep 20, 2016 at 14:33 Reason for Admission: Depressive Disorder Discharge Discharge Diagnosis / Problem: Depressive Disorder Condition at Discharge: improved Discharge Goals Goal(s): Improve function Activity Recommendations Activity Limitations: resume your previous activity . Instructions / Follow-Up Instructions / Follow-Up . SPECIAL CARE INSTRUCTIONS: 1. Follow through with your scheduled aftercare appointments. If unable to keep an appointment, please call to reschedule. 2. Take your medication only as prescribed. Medication should not be changed or stopped without the approval of your doctor. In the event of worsening symptoms or concerns about side effects, contact your doctor immediately. 3. Utilize new healthy coping skills, anger management skills, and stress management skills learned during your hospitalization. Journal feelings and process them with a support person. Identify stressors or situations that may result in relapse, deterioration or inappropriate behaviors and develop a plan to deal with those issues. 4. If your coping skills are ineffective and you are in crisis, contact your outpatient providers for direction. If unable to reach your providers, please call the CAN HELP LINE AT or go to the closest Emergency Room. 5. Avoid alcohol and un-prescribed drugs. 6. You have been provided with the Mental Health Advance Directives Pamphlet for your review. AFTERCARE APPOINTMENTS: * Please call your insurance company prior to your scheduled appointment to confirm your aftercare providers are covered. Take your insurance information to your appointments. . Discharge / Aftercare Planning Primary Care Physician: Name: Dr Morgan Phone Number: [phone] Date of Appointment: Oct 02, 2016 Time of Appointment: 1:20 Appointment Notes: Dr Morgan willing to see for non controlled substances Psychiatrist: Name: [facility] Phone Number: Date of Appointment: Nov 22, 2016 Time of Appointment: 815 am Appointment Notes: take insrc card, meds, 2 days notice to cancel, if no- show then no resched Therapist: Name Of Therapist: [facility] Phone Number: Appointment Comments: referral pending - they will call back Casino Beverage Server: Name: my Neurologist: Name: Dr. Shantel Talbert (she is on cancelation list for earlier apt) Phone Number: [phone] Date of Appointment: Nov 13, 2016 Time of Appointment: 950 am Appointment Notes: [address], [place] [address] . Follow-Up Care Plan for Follow-Up Care: attend scheduled appointments, take medications as prescribed Current Hospital Diet Patient's current hospital diet: Regular Diet Discharge Diet Recommended Diet: Regular Diet Procedures Procedures Performed: No Pending Studies Pending Studies at Discharge: No Medical Emergencies . Who to Call and When: Medical Emergencies: For questions or emergencies related to your hospital stay, please contact the Inpatient Behavioral Health Unit at [phone]. A enlisted aircrew/aerial observer/gunner is on-call 30/10 for the Behavioral Health Unit for emergencies At any time you feel your situation is an emergency, you may also call 911 immediately. . Non-Emergent Contact Non-Emergency issues call your: Primary Care Provider Advance Directives Do You Have an Existing Mental: No Existing Living Will: No Existing Power of Franchise Sales Representative: No Advance Directives Info Given: To Family Advance Directives Reason: Declines as Mental Health Visit. Discharge Summary Admission HPI Per the Admitting provider: Patient is a 61 yo female who was admitted to the medical floor on September 15 after being brought to the ED by ambulance. found her confused with blood tinged vomit. She has been grieving the of her 24 year old daughter who on October 04, 2015 from a heroin overdose. She had a panic attack and talked with her on the phone, which she reports is what she usually does when she is having a panic attack because he can calm her down. She had previously taken Xanax for panic attacks but did not have anymore. She reports not remember taking a pills but she was found to have taken Wellbutrin, Prednisone and Ativan which she says where in her cupboard even thought she is not currently taking or prescribed any of these medications. Today she reports no recollection of taking an overdose. She denies that it was a suicide attempt because she doesn't believe she will ever see her daughter again if she ends her own life. She report that she has been struggling with worsening depression and anxiety since her daughters . She was treated for depression since the of her daughter and reports that she had depression. She has been taking Celexa for the past 13 years. She reports additional stressors over the past couple of months including worsening depression after Mothers' Day, anniversary of daughters in September. Additionally her PCP, Dr. Morgan, of the past 13 years has dismissed her from his care sometime in the past 1-2 months. She reports that she had taken all of her Xanax (denies taking more than prescribed which according to external med history was 0.25 mg tid as needed with 30 tabs last filled on . A friend gave her Ativan and a pain medicine and when she went into Dr. Morgan's office for her follow up appointment she had a random drug screen. She reports that Dr. Morgan dismissed her from her care "on the spot." She is very distressed about this because he has been very helpful and supportive to her since her daughter's . She has been hopeful that he would change his mind and has sent him an email to which he responded that she had enough celexa to last until October. She has made no attempt to find another provider. She feels, hopeless and helpless and expresses guilt. She has been having trouble sleeping and appetite is decreased. She has panic attacks more frequently. Patient reported to staff that she is feeling guilty about cashing in $10,000 work of [employer]) to pay her daughter's debt. Her does not know she did this and he has told her that she would divorce her if she did this. She has also experienced the loss of her parents, dog and daughter's cat in the last 4 years. She has been estranged from her only sibling for many years. Patient denies any violence toward others in the past 6 months or ever. Hospital Course (1) Polysubstance overdose - Admitted to locked unit with q 15 min safety checks Patient will need a robust safety plan including no access to guns, no access to med and disposal of unused medications in the home. 09/22 - Asked patient to have bring in unused medications for disposal. 09/23 pt is focused on controlled meds for migraine control with also minimizing aspects of recent overdose of medications. 09/24 pt's has confirmed with staff about locking up guns with pt not having access, and removed medications that pt is no longer prescribed and locking up his medicaitons as well, PCP is not rx'ing further controlled substances (2) Major depressive disorder, recurrent episode with anxious distress 09/21 - Needs psychiatric prescriber and therapy. - encourage participation in group and individual therapy - encourage health coping skills - patient would benefit from support group for parents of children who have from opiate overdose - continue Remeron 30 mg at bedtime - vistaril as needed for anxiety, will try to avoid benzodiapines as patient overusing and using a friend's ativan - Patient agrees to trial of Lexapro and will start at 10 mg and titrate as tolerated. Reviewed black box warning for suicidaltiy same as celexa and most common side effects. 09/22 Patient resistant to psychiatric prescriber and prefers to see Dr. Morgan. This will need to be clarified as yesterday she indicated to me that he had dismissed her entirely. Patient would like therapist who specializes in bereavement/grief. No problems with Lexapro and would titrate tomorrow if she continues to tolerate. 09/23 Lexapro raised to 20mg hs as of tonight's dose 09/24 maintained Lexapro at 20mg hs, Remeron at 30mg hs, will provider vistaril as prn at discharge med option for acute anxiety given attempting to avoid benzodiazepines given concerns of usage. Has appointment established with [facility] for psychiatric medication management in November, is able to see PCP for medication management till then. (3) Migraine 09/21 continue amitriptyline, prn pain meds. Patient needs a PCP to follow Reviewed [place] PDMP database before prescribing controlled substances Recommend neurology follow up as outpatient, If migraines continue during her stay here may need consult Discussed patient with Dr. Funes who had seen this patient on consult on the medical floor. He did recommend a oxycodone as she had taken at home and restarting amitriptyline and that they would be happy to see her outpatient if headaches continue. 09/22 Patient agreeable to seeing neurology outpatient. please make an appointment with [facility] neurology. Would recommend replacing amitriptyline due to lethality of this drug in overdose. 09/23 pt interested in Fioricet or ativan as prn med for migraine abortive care. however given pt's recent OD and setting to leave under 72 hour notice and risks and concerns of such meds with pt's presentation of taking meds in the overdose but also in how taking controlled substances recently,this provider does not feel it is appropriate to prescribe this med at this time. Pt has restarted amitriptyline and is being encouraged to address migraines with outpt providers. 09/24 will rx limited number of Fioricet at discharge today given review of medical admission that pt was discharged to 3S unit from indicated trial of Fioricet for migraine relief. Of note, discharge summary from that admission had indicated instead of Fioricet but Fioricet is lower risk concerns and was given to her on this behavioral health admission with pt feeling that it will likely alleviate her migraine. Has appointment scheduled for neurology with Dr. Funes that saw on medical admission and is on wait list for sooner appointment. Paper Reclaiming Machine Operator is being mindful of limiting control substances as documented in other sections (4) Hypertension Patient hypertensive on medical floor and started on medication. Patient has BP discrepancies between arms. She will need follow up with PCP after discharge as soon as possible. BP is trending downward on 09/23 61/8 -maintain amolidipine at 5mg daily with bp improving. Given BP readings have been appropriate has not needed clonidine prn dose. To f/u with PCP after discharge. (5) Nicotine dependence 09/23 continue nicotine patch 21mg a day addressed smoking cessation education and reviewed resources and medications to assist in quitting smoking. Pt is open to continuing patches and to adding chantix after detail review of Chantix. Will start Chantix at 0.5mg for first 3 days. with aim to increase to full dosage at normal schedule. Encouraging utilizing tobacco cessation resources fully approx 10 minutes spent on smoking cessation concerns . 09/24 pt felt dizzy from Chantix dosage on 09/23 leading to it being discontinued out of concern of s/e. Pt instead preferring to continue with nicotine patches and will rx 21mg nicotine patches upon discharge with aim for f /u on tobacco cessation and patch continuation. Pt has failed wellbutrin trial Risk Factors Assessment : Yes /single/: No Health problems: No Mental Health Diagnoses: Yes Previous attempt: No Family history of suicide: No Previous psychiatric stay: No Hopelessness: Yes Smoker: Yes Protective Factors Assessment [employer] beliefs: Yes : Yes Responsible for young children: No Stable relationships: Yes Supportive family: Yes Day of Discharge Assessment Pt is without Suicidal ideation, is addressing her grief over the of her daughter, which she is finding more manageable. She is addressing the upcoming one year anniversary abeba and processing her grief with identifying ways to handle the waves of grief. She is reporting improved mood and lessened anxiety and improved sleep. She slept well last night with sleeping in her bed and denied back pain this morning .She denied irritable or anger and endorsed feeling ready for discharge. Her 72 hour notice expires at 1400 today and she is considered without risk of imminent harm to self or others and is consider to not warrant involuntary treatment at the hospital .She has aftercare established and is interested in taking her medications as rx'd and following up with providers. She is set to start with [facility] for psychiatric medication management in November with her PCP to prescribe her medications (non controlled) till then and has a neurology appointment established for her migraines. We are providing a limited supply of Fioricet for her to use during an migraine. Her has locked up his meds and removed meds not currently prescribed for her and has removed her access to guns. Total Time Total Time Spent (min): Greater than 30 minutes Total Time Included: examination of the patient, discharge planning, medication reconciliation Tobacco Cessation at Discharge Smoking Status: Current Every Day Smoker (one pack per day, doesn't want to quit and says it's the only thing she enjoys, says she knows she should quit.) FDA approved Prescription: nicotine replacement product (having failed bupropion and s/e to varenicline) Copies To Additional Copies To: Shey Mead PA-C
[2016-09-24] MEDS ORDERED: ATR25 PO ×2 (11:26→11:32)
== END 2016-09-24 12:49 | disposition home or self-care (01) | DRG 885 ==
LOC: C.MHU 14:33
PROVIDERS: ADMIT Psychiatry & Neurology Psychiatry; ATTEND Psychiatry & Neurology Psychiatry
DX: F33.0 Major depressive disorder, recurrent, mild (principal); F17.200 Nicotine dependence, unspecified, uncomplicated; G43.909 Migraine, unspecified, not intractable, without status migrainosus; I10 Essential (primary) hypertension

== ENCOUNTER 2016-10-21 22:45 | Emergency (ER) | payer OTHER ==
[~2016-10-21] VITALS: Ht 174 cm; Wt 83.0 kg
[~2016-10-21 22:45] MED LIST changes: +AMIT25TA9 PO; +ATR25 PO; -CTP1X PO; +LXP10 PO; +MIRT30TA2 PO
[2016-10-21 22:51] VITALS: TEMP 36.7; Ht 174 cm; Wt 83.0 kg
[2016-10-21] MEDS ORDERED: OXYC1TAB3 PO (23:28)
[2016-10-21] MEDS ORDERED: OXYCODONE IR HOME PACK PO ONE (23:30)
[2016-10-21] MEDS ORDERED: CLINDAMYCIN HCL 150 MG CAP PO ONE (23:30)
[2016-10-21 23:43] VITALS: BP 122/76; PULSE 78; O2SAT 98
[2016-10-21] MEDS ORDERED: LXP/20 PO (23:47)
[2016-10-21] MEDS ORDERED: ATR25 PO (23:48)
--- NOTE | 2016-10-22 01:34 | EMERGENCY ROOM VISIT NOTE ---
History Report prepared by Hedy: Ting Khoury Under the Supervision of: Dr. Kj Maxwell D.O. First contact with patient: 22:57 Chief Complaint: DENTAL PAIN Stated Complaint: RT JAW PAIN TO RT EAR, ABSCESS Nursing Triage Summary: see triage note History of Present Illness The patient is a 61 year old female who presents to the Emergency Room with complaints of persistent right sided dental pain that started yesterday. She rates her discomfort as an 8.5/10. Advil has provided minimal relief and she has been unable to sleep because of her pain. She states she called her dentists office, but they cannot see her until next week. She believes her jaw has become somewhat swollen as well. The patient denies any headache, change in vision, fevers, chest pain, shortness of breath, trouble swallowing or trouble breathing. Source of History: patient Onset: yesterday Position: jaw (right sided jaw) Symptom Intensity: 8.5/10 Timing: other (persistent) Modifying Factors (Relieving): ibuprofen (Advil) Associated Symptoms: No fevers, No headache, No chest pain, No SOB, No nausea, No vomiting, No melena, No diarrhea, No urinary symptoms Review of Systems See HPI for pertinent positives & negatives. A total of 10 systems reviewed and were otherwise negative. Past Medical & Surgical Medical Problems: (1) Degenerative disc disease (2) Depression (3) Hypertension (4) Major depressive disorder, recurrent episode with anxious distress (5) Migraine (6) Nicotine dependence (7) Polysubstance overdose (8) Pulmonary nodule Surgical Problems: (1) Status post section Family History Cancer Diabetes mellitus Heart disease Hypertension Kidney disease Kidney stones Social History Smoking Status: Current Every Day Smoker Alcohol Use: occasionally Drug Use: none Marital Status: Housing Status: lives with family Occupation Status: employed Current/Historical Medications Scheduled Amitriptyline Hcl (Elavil), 25 MG PO HS Amlodipine Besylate (Amlodipine Besylate), 5 MG PO QAM Escitalopram Oxalate (Escitalopram Oxalate), 20 MG PO DAILY Mirtazapine Soltab (Remeron Soltab), 30 MG PO HS Pantoprazole (Pantoprazole Sodium), 40 MG PO QAM Scheduled PRN Acetamin/Butalbital/Caffeine (Fioricet), 1 TAB PO Q6 PRN for severe migraine Hydroxyzine HCl (Hydroxyzine HCl), 25 MG PO BID PRN for Anxiety Oxycodone Immediate Rel Tab (Roxicodone Ir), 5 MG PO Q6H PRN for Pain Allergies Coded Allergies: Mushroom (Verified Allergy, Severe, ANAPHYLAXIS, 09/17/16) Penicillins (Verified Allergy, Mild, SWELLING BREATHING STOPS, 02/13/16) Acetazolamide (Unverified Allergy, Unknown, RASH/HIVES, 02/13/16) Molds and Smuts (Verified Allergy, Unknown, UNKNOWN, 02/13/16) Sumatriptan (Verified Adverse Reaction, Unknown, flushing,heart racing, ) Physical Exam Vital Signs Date Time Temp Pulse Resp B/P (MAP) Pulse Ox O2 Delivery O2 Flow Rate FiO2 10/21/16 23:43 78 16 122/76 98 10/21/16 22:51 36.7 89 18 161/87 96 Room Air Physical Exam GENERAL: Patient is sitting up in bed, disheveled, in no acute distress, non- toxic. EYE EXAM: normal conjunctiva, PERRL and EOM's grossly intact OROPHARYNX: Acute reproducible tenderness, just lateral to the right posterior molar along the gum line, and along the inferior margin of the right mandible, with a small amount of swelling. No submandibular swelling. Tolerating secretions, no stridor. Mucous membranes are moist. NECK: supple, no nuchal rigidity, no adenopathy, non-tender, full ROM. LUNGS: Clear to auscultation. Normal chest wall mechanics HEART: no murmurs, S1 normal and S2 normal ABDOMEN: abdomen soft, non-tender, normo-active bowel sounds, no masses, no rebound or guarding. SKIN: no rashes and no bruising UPPER EXTREMITIES: upper extremities are grossly normal. LOWER EXTREMITIES: No pitting edema. NEURO EXAM: Normal sensorium. Medical Decision & Procedures Medications Administered Medications (Trade) Dose Ordered Sig/King Route Start Time Stop Time Status Last Admin Dose Admin Clindamycin HCl (Cleocin Cap) 300 mg ONE ONCE PO 10/21/16 23:30 10/21/16 23:31 DC 10/21/16 23:30 300 MG ED Course ED COURSE: Vital signs were reviewed and showed the patient is hypertensive. The patients medical record was reviewed The above diagnostic studies were performed and reviewed. ED treatments and interventions as stated above. 2308: The patient was evaluated in room B10. A complete history and physical examination was performed. 2330: Oxycodone HCl 1 homepack PO, Clindamycin HCl 300 mg PO. 2340: Upon reevaluation, the patient is feeling much better. I discussed my findings with the patient and she understands and agrees with the treatment plan. Based on the patients age, coexisting illnesses, exam and lab findings the decision to treat as an outpatient was made. The patient remained stable while under my care. The patient appeared well at the time of discharge. Medical Decision Medication Reconciliation: I attest that I have personally reviewed the patient' s current medication list. Blood Pressure Screening: The patient was found to have a slightly elevated blood pressure due to circumstances. I do not believe that the patient requires hypertension monitoring. Differential diagnoses includes but is not limited to dental fracture, dental carries, and dental abscess. Patient is a 61-year-old female who presents the ER for right lower jaw pain and swelling. Patient denies any fevers. She is tolerating secretions. Able to eat and drink. She is acute pain on palpation of right posterior lower molar with minimal swelling along the jawline. No partial abscess. Afebrile. Patient was given Clinda as pen allergic. PDMP was reviewed. Patient was given a short should option of OxyIR and instructed to follow-up with dentistry on Sunday. Any worsening of your symptoms, trouble swallowing, trouble breathing, increased swelling of her face she will return to the ER immediately. Discussed with Pt concerning signs and symptoms to watch out for. Pt was instructed to follow up with their PCP and discussed with the patient their option to return to the ED at anytime for persistent or worsening symptoms. The appropriate anticipatory guidance and out-patient management, including indications for return to the emergency department, were explained at length to the patient and understood. [place] Drug Monitoring Program Search Results: patient reviewed within database, no issues identified Impression Primary Impression: Dentalgia Scribe Attestation The scribe's documentation has been prepared under my direction and personally reviewed by me in its entirety. I confirm that the note above accurately reflects all work, treatment, procedures, and medical decision making performed by me. Departure Information Dispostion Home / Self-Care Prescriptions Oxycodone Immediate Rel Tab (ROXICODONE IR) 5 Mg Tab 5 MG PO Q6H Y for Pain, #6 TAB Prov: Kj MaxwellBentley, DO 10/21/16 Referrals No Doctor, Assigned (PCP) Patient Instructions ED [facility] Additional Instructions Please follow up with your primary care doctor with in the next 24 hours. Any worsening of your symptoms, please return to the ED immediately. This includes fevers greater than 100.4, inability to swallow, increased swelling of her face , pain with movement of her eye, or any other concerning signs and some your standpoint. You were given medications during this visit that will inhibit your ability to drive, operate machinery and work. Please do NOT drive, operate machinery or work for the next 12hrs. You were also given a prescription for a narcotic/Oxy IR. While taking this medication you should also not drive, operate machinery and or work.
[2016-10-22] MEDS ORDERED: CLIN150C PO (21:26)
[2016-10-22] MEDS ORDERED: HYDR-5688 PO (21:26)
== END 2016-10-21 23:44 | disposition home or self-care (01) ==
LOC: C.EDB 22:46
DX: K08.89 Other specified disorders of teeth and supporting structures (principal); F32.9 Major depressive disorder, single episode, unspecified; I10 Essential (primary) hypertension; F17.210 Nicotine dependence, cigarettes, uncomplicated; R91.1 Solitary pulmonary nodule; Z80.9 Family history of malignant neoplasm, unspecified; Z83.3 Family history of diabetes mellitus; Z82.49 Family history of ischemic heart disease and other diseases of the circulatory system; Z84.1 Family history of disorders of kidney and ureter; Z79.899 Other long term (current) drug therapy

== ENCOUNTER 2016-10-22 20:18 | Emergency (ER) | payer OTHER ==
[~2016-10-22] VITALS: Ht 172.7 cm; Wt 85.6 kg
[~2016-10-22 20:18] MED LIST changes: +LXP/20 PO; +OXYC1TAB3 PO
[2016-10-22 20:22] VITALS: TEMP 36.7; Ht 172.7 cm; Wt 85.6 kg
[2016-10-22] MEDS ORDERED: ONDANSETRON INJ 2 MG/ML 2 ML VIAL IV STA (20:34)
[2016-10-22] MEDS ORDERED: KETOROLAC TROMETHAMINE 30 MG/ML VIAL IV STA (20:34)
[2016-10-22] MEDS ORDERED: HYDROmorphone INJ 1 MG/ML SYR IV STA (20:34)
[2016-10-22] MEDS ORDERED: SODIUM CHLORIDE 0.9% 1000ML 1,000 ML IV STA (20:34)
[2016-10-22] MEDS ORDERED: CLINDAMYCIN 600 MG/54 ML D5W IV ONE (20:45)
[2016-10-22] MEDS ORDERED: CLINDAMYCIN IV 600 MG in DEXTROSE 5% 50ML 50 ML IV ONE (20:45)
[2016-10-22 21:15] LABS: BASO % 0.2 %; BASO ABS # 0.02 K/uL (0-0.2); COMPLETE YES; EOS % 1.4 %; HEMATOCRIT 41.5 % (37-47); IG% 0.3 %; LYMPH % 23.3 %; LYMPH ABS # 2.87 K/uL (1.2-3.4); MEAN CELL VOLUME 95.4 fL (80-100); MEAN CORPUSCULAR HEMOGLOBIN 32.6 pg (25-34); MEAN CORPUSCULAR HGB CONC 34.2 g/dl (32-36); MEAN PLATELET VOLUME 9.3 fL (7.4-10.4); MONO % 7.4 %; NEUT % 67.4 %; PLATELET COUNT 244 K/uL (130-400); RED BLOOD COUNT 4.35 M/uL (4.2-5.4); WHITE BLOOD COUNT 12.31 K/uL (4.8-10.8)
[2016-10-22] MEDS ORDERED: HYDR-5688 PO (21:26)
[2016-10-22] MEDS ORDERED: CLIN150C PO (21:26)
[2016-10-22 21:30] LABS: ALT/SGPT 13 U/L (12-78); BLOOD UREA NITROGEN 18 mg/dl (7-18); BUN/CREATININE RATIO 18.9 (10-20); CARBON DIOXIDE 27 mmol/L (21-32); CHLORIDE 105 mmol/L (98-107); CREATININE 0.93 mg/dl (0.60-1.20); GLUCOSE 116 mg/dl (70-99); POTASSIUM 3.9 mmol/L (3.5-5.1); SODIUM 138 mmol/L (136-145)
[2016-10-22] MEDS ORDERED: CLINDAMYCIN 150MG HOME PACK PO ONE (21:30)
[2016-10-22] MEDS ORDERED: NORCO 5/325MG HOME PACK PO ONE (21:30)
[2016-10-22 21:33] LABS: ALKALINE PHOSPHATASE 115 U/L (45-117); AST/SGOT 10 U/L (15-37)
[2016-10-22 22:04] VITALS: BP 157/82; PULSE 84; O2SAT 98
--- NOTE | 2016-10-22 22:41 | EMERGENCY ROOM VISIT NOTE ---
History Report prepared by Hedy: Jaime Alexis Under the Supervision of: Dr. Amadou Richey M.D. First contact with patient: 20:24 Chief Complaint: FACIAL PAIN/INJURY Stated Complaint: SWELLING ON R SIDE OF FACE History of Present Illness The patient is a 61 year old female who presents to the Emergency Room with complaints of worsening right lower facial swelling beginning this week. She was seen in the ED yesterday for similar symptoms and was discharged on Clindamycin. She states that her swelling has moved up into her upper jaw, and down towards her chin. The patient states that her symptoms have worsened since yesterday. She states that she had two doses of Clindamycin while in the ED, and does not believe she was given a prescription. Nothing has improved her symptoms. Source of History: patient Onset: This week Position: head (right lower face) Quality: other (swelling) Timing: worsening Modifying Factors (Relieving): other (none) Review of Systems See HPI for pertinent positives & negatives. A total of 10 systems reviewed and were otherwise negative. Past Medical & Surgical Medical Problems: (1) Degenerative disc disease (2) Depression (3) Hypertension (4) Major depressive disorder, recurrent episode with anxious distress (5) Migraine (6) Nicotine dependence (7) Polysubstance overdose (8) Pulmonary nodule Surgical Problems: (1) Status post section Family History Cancer Diabetes mellitus Heart disease Hypertension Kidney disease Kidney stones Social History Smoking Status: Current Every Day Smoker Alcohol Use: occasionally Drug Use: none Marital Status: Housing Status: lives with family Occupation Status: employed Current/Historical Medications Scheduled Amitriptyline Hcl (Elavil), 25 MG PO HS Amlodipine Besylate (Amlodipine Besylate), 5 MG PO QAM Clindamycin Hcl (Cleocin), 300 MG PO Q6 Escitalopram Oxalate (Escitalopram Oxalate), 20 MG PO DAILY Mirtazapine Soltab (Remeron Soltab), 30 MG PO HS Pantoprazole (Pantoprazole Sodium), 40 MG PO QAM Scheduled PRN Acetamin/Butalbital/Caffeine (Fioricet), 1 TAB PO Q6 PRN for severe migraine Hydrocodone/Acetaminophen 5MG/325MG ([place] 5MG/325MG), 2 TABLETS PO Q6 PRN for Pain Hydroxyzine HCl (Hydroxyzine HCl), 25 MG PO BID PRN for Anxiety Oxycodone Immediate Rel Tab (Roxicodone Ir), 5 MG PO Q6H PRN for Pain Allergies Coded Allergies: Mushroom (Verified Allergy, Severe, ANAPHYLAXIS, 09/17/16) Penicillins (Verified Allergy, Mild, SWELLING BREATHING STOPS, 02/13/16) Acetazolamide (Unverified Allergy, Unknown, RASH/HIVES, 02/13/16) Molds and Smuts (Verified Allergy, Unknown, UNKNOWN, 02/13/16) Sumatriptan (Verified Adverse Reaction, Unknown, flushing,heart racing, ) Physical Exam Vital Signs Date Time Temp Pulse Resp B/P (MAP) Pulse Ox O2 Delivery O2 Flow Rate FiO2 10/22/16 22:04 84 18 157/82 98 10/22/16 20:57 Room Air 10/22/16 20:22 36.7 99 18 174/85 96 Room Air Physical Exam GENERAL: Patient is a healthy-appearing well-nourished female HEAD: Normocephalic atraumatic EYES: Ocular movements intact pupils equal and react to light OROPHARYNX: mucous membranes are moist no exudates present no erythema present. Swelling to the right angle of the jaw. No evidence of Munir angina on exam. No evidence of abscess to the tooth. No trismus on exam. Able to swallow saliva without difficulty. NECK: Supple no nuchal rigidity CHEST: Good equal expansion LUNGS: Clear and equal to auscultation CARDIAC: Normal S1 and S2 ABDOMEN: Soft nontender no guarding BACK: No CVA tenderness EXTREMITIES: No pain upon palpation normal muscle strength in all groups no clubbing cyanosis or edema NEURO: Patient is following commands and answering questions appropriately. Alert and oriented x3 Cranial Nerves 2-12 grossly intact Medical Decision & Procedures Laboratory Results 10/22/16 21:00 Red Blood Count 4.35, Mean Corpuscular Volume 95.4, Mean Corpuscular Hemoglobin 32.6, Mean Corpuscular Hemoglobin Concent 34.2, Mean Platelet Volume 9.3, Neutrophils (%) (Auto) 67.4, Lymphocytes (%) (Auto) 23.3, Monocytes (%) (Auto) 7.4, Eosinophils (%) (Auto) 1.4, Basophils (%) (Auto) 0.2, Neutrophils # (Auto) 8.30, Lymphocytes # (Auto) 2.87, Monocytes # (Auto) 0.91, Eosinophils # (Auto) 0.17, Basophils # (Auto) 0.02 10/22/16 21:00 Test 10/22/16 21:00 White Blood Count 12.31 K/uL (4.8-10.8) Red Blood Count 4.35 M/uL (4.2-5.4) Hemoglobin 14.2 g/dL (12.0-16.0) Hematocrit 41.5 % (37-47) Mean Corpuscular Volume 95.4 fL (80-100) Mean Corpuscular Hemoglobin 32.6 pg (25-34) Mean Corpuscular Hemoglobin Concent 34.2 g/dl (32-36) Platelet Count 244 K/uL (130-400) Mean Platelet Volume 9.3 fL (7.4-10.4) Neutrophils (%) (Auto) 67.4 % Lymphocytes (%) (Auto) 23.3 % Monocytes (%) (Auto) 7.4 % Eosinophils (%) (Auto) 1.4 % Basophils (%) (Auto) 0.2 % Neutrophils # (Auto) 8.30 K/uL (1.4-6.5) Lymphocytes # (Auto) 2.87 K/uL (1.2-3.4) Monocytes # (Auto) 0.91 K/uL (0.11-0.59) Eosinophils # (Auto) 0.17 K/uL (0-0.5) Basophils # (Auto) 0.02 K/uL (0-0.2) RDW Standard Deviation 46.8 fL (36.4-46.3) RDW Coefficient of Variation 13.3 % (11.5-14.5) Immature Granulocyte % (Auto) 0.3 % Immature Granulocyte # (Auto) 0.04 K/uL (0.00-0.02) Anion Gap 6.0 mmol/L (3-11) Est Creatinine Clear Calc Drug Dose 72.8 ml/min Estimated GFR () 76.9 Estimated GFR (Non- 66.3 BUN/Creatinine Ratio 18.9 (10-20) Calcium Level 9.0 mg/dl (8.5-10.1) Total Bilirubin 0.2 mg/dl (0.2-1) Direct Bilirubin < 0.1 mg/dl (0-0.2) Aspartate Amino Transf (AST/SGOT) 10 U/L (15-37) Alanine Aminotransferase (ALT/SGPT) 13 U/L (12-78) Alkaline Phosphatase 115 U/L (45-117) Total Protein 7.9 gm/dl (6.4-8.2) Albumin 3.7 gm/dl (3.4-5.0) Labs reviewed by ED physician. Medications Administered Medications (Trade) Dose Ordered Sig/Knig Route Start Time Stop Time Status Last Admin Dose Admin Ketorolac Tromethamine (Toradol Inj) 30 mg NOW STAT IV 10/22/16 20:34 10/22/16 20:35 DC 10/22/16 21:07 30 MG Clindamycin Phosphate 600 mg/ Dextrose 54 ml @ 100 mls/hr NOW ONCE IV 10/22/16 20:45 10/22/16 21:17 DC 10/22/16 21:33 100 MLS/HR Acetaminophen/ Hydrocodone Bitart ([place] 5/325mg Home Pack) 1 homepack UD ONCE PO 10/22/16 21:30 10/22/16 21:31 DC 10/22/16 21:54 1 HOMEPACK Clindamycin HCl (Cleocin 150MG Home Pack) 1 homepack UD ONCE PO 10/22/16 21:30 10/22/16 21:31 DC 10/22/16 21:54 1 HOMEPACK ED Course 2027: Past medical records reviewed. The patient was evaluated in room C7. A complete history and physical examination was performed. I recommended a CT of the face to rule out abscess, but the patient declined. 2033: Ordered Sodium Chloride 1000 ml @ 999 mls/hr, Zofran Inj 4 mg IV, Dilaudid Inj 1 mg IV, Toradol Inj 30 mg IV. 2044: Ordered Clindamycin Phosphate 600 mg/Dextrose 54 mL @ 100 mL/hr IV. 2129: Ordered Cleocin 150 home pack PO, [place] 5/325 mg home pack PO. 2134: Upon reexamination the patient is resting comfortably. I discussed results and treatment plan with the patient. She verbalizes agreement and understanding. The patient is ready for discharge. Medical Decision Differential diagnosis: Etiologies such as cellulitis, abscess, MRSA infection, dermatitis, drug eruption, as well as others were entertained. This is a 61-year-old female who presents emergency department complaining of swelling to the left side of her face. Based on the patient's complaints I recommended a CAT scan of the face which the patient adamantly refused. She does have slight elevation in her white blood count cell count at 12. She was given IV clindamycin here in the emergency department and I will prescribe and myself her at home. The patient asked that she be placed on [place] as well as. She does have an appointment with dentistry on Sunday. Patient was in agreement with the treatment plan. Impression Primary Impression: Pain, dental Scribe Attestation The scribe's documentation has been prepared under my direction and personally reviewed by me in its entirety. I confirm that the note above accurately reflects all work, treatment, procedures, and medical decision making performed by me. Departure Information Dispostion Home / Self-Care Prescriptions Hydrocodone/Acetaminophen 5MG/325MG ([place] 5MG/325MG) Tab 2 TABLETS PO Q6 Y for Pain, #14 TAB Prov: Amadou Richey MD 10/22/16 Clindamycin Hcl (CLEOCIN) 150 Mg Cap 300 MG PO Q6 for 10 Days, #80 CAP Prov: Amadou Richey MD 10/22/16 Referrals Hany Glaser M.D. (PCP) Forms HOME CARE DOCUMENTATION FORM, IMPORTANT VISIT INFORMATION Patient Instructions ED Tooth Pain, [facility] Additional Instructions Keep appointment with Dentist Sunday You were found to have an elevated blood pressure today (>120 sytolic or >90 diastolic). Per medicare guidelines, you need to follow up with this blood pressure screening with your Primary Care Physician (PCP). For a new PCP call [phone]. You received narcotic or benzodiazepene medication while in the emergency room today. Do not drive, operate heavy machinery, or drink alcohol under the influence of this medication. Take 600 mg Ibuprofen every 6 hours Take [place] for breakthrough pain You have been examined and treated today on an emergency basis only. This is not a substitute for, or an effort to provide, complete comprehensive medical care. It is impossible to recognize and treat all injuries or illnesses in a single emergency department visit. It is therefore important that you follow up closely with Dr Glaser. Call as soon as possible for an appointment. Thank you for your time and consideration. I look forward to speaking with you again soon. Please don't hesitate to call us if you have any questions.
== END 2016-10-22 22:05 | disposition home or self-care (01) ==
LOC: C.EDB 20:20 → C.EDC 22:05
DX: K08.89 Other specified disorders of teeth and supporting structures (principal); I10 Essential (primary) hypertension; F32.9 Major depressive disorder, single episode, unspecified; R91.1 Solitary pulmonary nodule; F17.200 Nicotine dependence, unspecified, uncomplicated; Z79.899 Other long term (current) drug therapy; Z88.0 Allergy status to penicillin; Z88.8 Allergy status to other drugs, medicaments and biological substances; Z80.9 Family history of malignant neoplasm, unspecified; Z83.3 Family history of diabetes mellitus; Z82.49 Family history of ischemic heart disease and other diseases of the circulatory system; Z84.1 Family history of disorders of kidney and ureter

== ENCOUNTER 2017-02-17 19:54 | Emergency (ER) | payer OTHER ==
[~2017-02-17] VITALS: Ht 172.7 cm; Wt 90.4 kg
[~2017-02-17 19:54] MED LIST changes: -ACET-1047 PO; -Artificial Tears OP; +HYDR-5688 PO; -LXP10 PO; -MULT-160 PO; -NICO21DI4 TD
[2017-02-17 19:57] VITALS: TEMP 37.1; Ht 172.7 cm; Wt 90.4 kg
--- NOTE | 2017-02-17 20:13 | EMERGENCY ROOM VISIT NOTE ---
History Report prepared by Hedy: Ting Khoury Under the Supervision of: Dr. Ottoniel Sheehan M.D. First contact with patient: 19:59 Chief Complaint: URINARY SYMPTOMS Stated Complaint: UTI History of Present Illness The patient is a 61 year old white female with a past medical history of DDD, migraines, hypertension, depression and anxiety who presents to the ED with a cc of persistent urinary symptoms beginning earlier today. Positive dysuria, increased urinary frequency, and decreased urinary output. Negative fever, abdominal pain, back pain, hematuria, abnormal vaginal bleeding or discharge, pain or numbness in her arms or legs, or saddle anesthesia. She admits to a history of UTI's and states her symptoms feel similar to previous UTI's. She denies any recent travel, surgeries or antibiotic use. The patient is a current smoker. Source of History: patient Onset: earlier today Position: other (urinary system) Timing: other (persistent) Associated Symptoms: No fevers, No abdominal pain, No back pain, No numbness (in the arms or legs) Review of Systems See HPI for pertinent positives and negatives. A total of ten systems were reviewed and were otherwise negative. Past Medical & Surgical Medical Problems: (1) Degenerative disc disease (2) Depression (3) Hypertension (4) Major depressive disorder, recurrent episode with anxious distress (5) Migraine (6) Nicotine dependence (7) Polysubstance overdose (8) Pulmonary nodule Surgical Problems: (1) Status post section Family History Cancer Diabetes mellitus Heart disease Hypertension Kidney disease Kidney stones Social History Smoking Status: Current Every Day Smoker Alcohol Use: occasionally Drug Use: none Marital Status: Housing Status: lives with family Occupation Status: employed Current/Historical Medications Scheduled Amitriptyline Hcl (Elavil), 25 MG PO HS Amlodipine Besylate (Amlodipine Besylate), 5 MG PO QAM Escitalopram Oxalate (Escitalopram Oxalate), 20 MG PO DAILY Mirtazapine Soltab (Remeron Soltab), 30 MG PO HS Nitrofurantoin Monohyd Macrocr (Macrobid), 100 MG PO BID Pantoprazole (Pantoprazole Sodium), 40 MG PO QAM Scheduled PRN Acetamin/Butalbital/Caffeine (Fioricet), 1 TAB PO Q6 PRN for severe migraine Hydroxyzine HCl (Hydroxyzine HCl), 25 MG PO BID PRN for Anxiety Allergies Coded Allergies: Mushroom (Verified Allergy, Severe, ANAPHYLAXIS, 02/17/17) Penicillins (Verified Allergy, Mild, SWELLING BREATHING STOPS, 02/17/17) Acetazolamide (Unverified Allergy, Unknown, RASH/HIVES, 02/17/17) Molds and Smuts (Verified Allergy, Unknown, UNKNOWN, 02/17/17) Sumatriptan (Verified Adverse Reaction, Unknown, flushing,heart racing, ) Physical Exam Vital Signs Date Time Temp Pulse Resp B/P (MAP) Pulse Ox O2 Delivery O2 Flow Rate FiO2 02/17/17 21:19 84 20 136/72 98 02/17/17 19:57 37.1 83 18 187/104 97 Room Air Physical Exam GENERAL: Awake, alert, well-appearing, NAD, smells of smoke HENT: Normocephalic, atraumatic. EYES: Normal conjunctiva. Sclera non-icteric. NECK: Supple. No nuchal rigidity. FROM. RESPIRATORY: CTAB, no rhonchi, wheezing, crackles CARDIAC: RRR, systolic ejection murmur in aortic position, no MRG ABDOMEN: Soft, NTND, BS+ Some urinary urgency when suprapubic area is palpated, no tenderness to palpation. Non-surgical abdomen. MSK: No chest wall TTP, no LE edema. No CVA tenderness to palpation. No saddle anesthesia. NEURO: GCS 15, CN 2-12 intact, moves all 4s on command, now lower extremity weakness or sensory deficits. SKIN: No rash or jaundice noted. Medical Decision & Procedures Laboratory Results Test 02/17/17 20:00 Urine Color DK YELLOW Urine Appearance CLOUDY (CLEAR) Urine pH 5.0 (4.5-7.5) Urine Specific [place] 1.035 (1.000-1.030) Urine Protein 1+ (NEG) Urine Glucose (UA) NEG (NEG) Urine Ketones TRACE (NEG) Urine Occult Blood NEG (NEG) Urine Nitrite NEG (NEG) Urine Bilirubin NEG (NEG) Urine Urobilinogen NEG (NEG) Urine Leukocyte Esterase TRACE (NEG) Urine WBC (Auto) 10-30 /hpf (0-5) Urine RBC (Auto) 0-4 /hpf (0-4) Urine Hyaline Casts (Auto) 0 /lpf (0-5) Urine Epithelial Cells (Auto) >30 /lpf (0-5) Urine Bacteria (Auto) 1+ (NEG) Urine Crystals CALCIUM OXALATE (NONE Urine Yeast (Auto) (NONE PRSENT) Laboratory results reviewed by me Medications Administered Medications (Trade) Dose Ordered Sig/King Route Start Time Stop Time Status Last Admin Dose Admin Nitrofurantoin Macrocrystals (Macrobid Cap) 100 mg NOW STAT PO 02/17/17 20:21 02/17/17 20:23 DC 02/17/17 20:30 100 MG Phenazopyridine HCl (Pyridium Tab) 200 mg NOW STAT PO 02/17/17 20:43 02/17/17 20:44 DC 02/17/17 20:54 200 MG Phenazopyridine HCl (Phenazopyridine HCl 200MG Home Pack) 1 homepack UD ONCE PO 02/17/17 20:45 02/17/17 20:46 DC 02/17/17 20:54 1 HOMEPACK ED Course 2001: The patient was evaluated in room B6. A complete history and physical exam was performed. 2014: I reevaluated the patient. She states she does not want to be treated with any medications. I discussed the risks and benefits associated with not treating her symptoms empirically. She is agreeable to antibiotics and will get her first dose here in the ED. 2104: I reevaluated the patient. She is feeling well and resting comfortably. I discussed her results and discharge instructions and she verbalized complete understanding and agreement. Medical Decision The patient is a 61 year old white female with a past medical history of migraines, hypertension, depression and anxiety who presents to the ED with a cc of persistent urinary symptoms beginning earlier today. Triage Nursing notes reviewed. The patient's presentation and history were concerning for a UTI. Differential Diagnoses: UTI, musculoskeletal pain, pyelonephritis, cystitis, overactive bladder and overflow incontinence. Patient was seen and evaluated at the bedside. Patient refuses any blood work. I stated to the patient that it would be important to review her kidney function to make sure that was not an issue. Patient states that she did not want anything at all she wanted was to be treated. We discussed risks and benefits of this. Patient was treated empirically with Macrobid as well as some Pyridium. Patient did not have any concerning low back pain. Patient had no history of IV drug abuse history of cancer history of unintended weight loss , fevers, saddle anesthesia, or bowel or bladder incontinence. Patient was deemed suitable for outpatient discharge. I did review the MR which showed earlier this year the patient had normal kidney function. Patient was given Macrobid. Counseled on smoking cessation. Patient was given strict follow-up, discharge, and return precautions. All questions were answered. Patient was deemed suitable for outpatient follow-up at this time. Patient agreed with the plan of care and was safely discharged home. Medication Reconcilliation Current Medication List: was personally reviewed by me Blood Pressure Screening Patient's blood pressure: Elevated blood pressure Blood pressure disposition: Referred to PCP Impression Primary Impression: Encounter for smoking cessation counseling Additional Impression: UTI (urinary tract infection) Scribe Attestation The scribe's documentation has been prepared under my direction and personally reviewed by me in its entirety. I confirm that the note above accurately reflects all work, treatment, procedures, and medical decision making performed by me. Departure Information Dispostion Home / Self-Care Prescriptions Nitrofurantoin Monohyd Macrocr (Macrobid) 100 Mg Cap 100 MG PO BID for 7 Days, #14 CAP Prov: Ottoniel Sheehan M.D. 02/17/17 Referrals Hany Glaser M.D. (PCP) Patient Instructions ED Smoking Cessation, ED UTI Cystitis Female, My [facility] Additional Instructions Please return to the emergency department if you have worsening or recurrent symptoms not amenable to at-home treatment. Please call for a follow-up appointment with her primary care physician. Please take your medications as prescribed. If you have other concerns and/or complaints please feel free to also call your primary care physician's office or return the ED for further evaluation, management, and treatment. Please consider smoking cessation as this will improved your high blood pressure and overall health. Please follow up with your PCP for health and wellness. Take your medications as prescribed. If taking an antibiotic consider taking a probiotic and/or eating yogurt, but at the least, please take with food as it can cause upset stomach. If culture results are not available at discharge, if they are positive for concern of infection, you will be informed of the results as soon as they are available. You have been examined and treated today on an emergency basis only. This is not a substitute for, or an effort to provide, complete comprehensive medical care. It is impossible to recognize and treat all injuries or illnesses in a single emergency department visit. It is therefore important that you follow up closely with [facility], your PCP, and/or your specialist(s). Call as soon as possible for an appointment. Thank you for your time and consideration. I look forward to speaking with you again soon. Please don't hesitate to call us if you have any questions. Problem Qualifiers Additional Impression: UTI (urinary tract infection) Urinary tract infection type: acute cystitis Hematuria presence: without hematuria Qualified Codes: N30.00 - Acute cystitis without hematuria
[2017-02-17] MEDS ORDERED: NITROFURANTOIN MONOHYDRATE 100 MG CAP PO STA (20:21)
[2017-02-17 20:34] LABS: URINE APPEARANCE CLOUDY (CLEAR); URINE BILIRUBIN NEG (NEG); URINE COLOR DK YELLOW; URINE EPITHELIAL CELL AUTO >30 /lpf (0-5); URINE NITRITE NEG (NEG); URINE SPECIFIC GRAVITY 1.035 (1.000-1.030); UROBILINOGEN NEG (NEG); ZZUR CULT IF INDIC CLEAN CATCH YES
[2017-02-17 20:37] LABS: MANUAL MICROSCOPIC REQUIRED? NO; REVIEW REQ? YES
[2017-02-17] MEDS ORDERED: PHENAZOPYRIDINE HCL 200 MG TAB PO STA (20:43)
[2017-02-17] MEDS ORDERED: PHENAZOPYRIDINE HOME PACK 200 MG VIAL PO ONE (20:45)
[2017-02-17] MEDS ORDERED: NITR-5 PO (21:14)
[2017-02-17 21:19] VITALS: BP 136/72; PULSE 84; O2SAT 98
== END 2017-02-17 21:20 | disposition home or self-care (01) ==
LOC: C.EDB 19:55
DX: N30.00 Acute cystitis without hematuria (principal); I10 Essential (primary) hypertension; F17.200 Nicotine dependence, unspecified, uncomplicated; Z83.3 Family history of diabetes mellitus; Z82.49 Family history of ischemic heart disease and other diseases of the circulatory system; Z84.1 Family history of disorders of kidney and ureter

== ENCOUNTER 2019-12-23 14:04 | Inpatient (IN) ==
[2019-12-23] MEDS ORDERED: ACETAMINOPHEN 1,000 MG/100 ML VIAL IV STA (14:36)
[2019-12-23] MEDS ORDERED: METOCLOPRAMIDE HCL INJ 5 MG/ML 2 ML VIAL IV ONE (14:36)
[2019-12-23] MEDS ORDERED: CEFEPIME 2,000 MG/20 ML VIAL IV STA (14:37)
--- NOTE | 2019-12-23 14:44 | Emergency Department Note ---
Impression & Plan Neutropenia with fever, Breathlessness, Chest pressure, Nausea & vomiting ED Provider Note Provider: Souleymane Garvey MD DATE OF SERVICE: 12/23/2019 CHIEF COMPLAINT: Chest pain, nausea, shortness of breath HISTORY OF PRESENT ILLNESS: Patient is a 64-year-old female history of small cell lung cancer currently on chemotherapy and radiation presenting here today developing overnight central chest pressure with shortness of breath and nausea. Experience vomiting multiple times this morning and chills. Denies headache or URI symptoms. States she is a chronic cough but this is not significantly changed. Breathing is worse than normal she reports. Denies sick contacts he is aware of. States she lives home alone. Try to eat some earlier and vomited this up. Tried to limit her Compazine early to help with the vomiting believe she vomited this up as well. States she has some myalgias but these are baseline. Denies urinary symptoms or skin changes or rash. Patient did have radiation treatment yesterday developed a little bit of burning in her chest after that but then this worsened overnight. Not significantly worse with palpation of the chest. No trauma reported. Does not report subjective fever at home. States her voice was slightly raspy yesterday but denies real sore throat. Denies abdominal pain. Denies the use of any antipyretics prior to arrival. REVIEW OF SYSTEMS: A total of 10 review of systems was obtained and negative except as stated above in the HPI. PAST MEDICAL HISTORY: As noted above MEDICATIONS: Reviewed home medications SOCIAL HISTORY: Former smoker, lives at home by herself PHYSICAL EXAM: GENERAL: alert and oriented in no acute distress on stretcher, appears fatigued. Obtained an oral temperature of 38.4 Celsius myself in the room Head: normocephalic and atraumatic EYES: No injection, discharge or icterus. NECK: Trachea midline. Supple. ENT: Mucous membranes pink and moist. LUNGS: Airway patent. No retractions. Breath sounds clear with diminished bases HEART: Regular rate and rhythm. No chest wall tenderness with a right upper chest wall port. ABDOMEN: Soft and non-tender, without guarding or rebound. SKIN: Acyanotic, warm, dry, without rashes EXTREMITIES: Without swelling, tenderness or deformity NEUROLOGICAL: No focal deficits. No aphasia. No facial droop or slurred speech. EK bpm sinus tachycardia. No PVC or PAC. No ST segment elevation or depression. Normal QTC and axis. CONTINUOUS CARDIAC MONITORING: was ordered and showed a heart rate of 94 bpm in normal sinus rhythm improving from a sinus tachycardia in the 110s. Patient's hypertension was referred to the hospitalist Patient's laboratory studies and imaging reviewed. Differential includes Sepsis, UTI, pneumonia, metabolic, electrolyte abnormalities, cardiac sources, intracerebral event, toxicologic, neurologic, as well as other pathologies. IMPRESSION/MEDICAL DECISION MAKING: Patient presents complaining of chest pressure/pain worsening shortness of breath as well as nausea developing overnight. Reports chills. Febrile here tachycardic. Triage hypotension was noted although somewhat improved upon assessment in the room. Patient denies urinary symptoms or significant abdominal pain. Nontender abdomen. Does appear somewhat weakened. Made a sepsis alert given vitals and complaints. Concern for immunocompromise state given chemotherapy use as well as radiation. Cultures and lactate were sent in addition to basic labs. Some concern for possible PE exist and a CT of the chest will be completed. EKG without audie evidence of ST segment elevation. Troponin was sent however. Covered empirically with cefepime and given a 2 L IV fluid bolus more than a 30 cc/kg per sepsis criteria based on ideal body weight. Given some Tylenol here for antipyretic effect as well as some Reglan to help with her nausea. Patient is not appear acutely meningitic with a supple neck and has no focal neurological deficits on exam. Chest x-ray without focal consolidation consistent with pneumonia. No pneumothorax visualized either per radiology report. Patient is neutropenic likely secondary to her chemotherapy and again was febrile here. Already received empiric cefepime. Troponin is negative and undetectable and I think this is less likely to be acute ACS. Lactate not elevated. Some mild hyponatremia with sodium of 130 noted. No lipase elevation and does not seem consistent with acute pancreatitis. No significant transaminitis consistent with hepatitis noted. Mild hypomagnesemia noted. Likely no central PE noted on imaging. Improvement of oncological burden. Nonspecific inflammatory versus infectious pneumonitis was noted without clear focal consolidation. Some slight inflammation of the distal esophagus was noted clinically likely related to her recent radiological process. Radiology does note that there is occlusion of the right subclavian vein. Will defer acute anticoagulation at this time to the hospitalist team the patient would likely be a candidate for Lovenox given her oncological process. Do not believe this is acutely causing her symptoms and presentation today more incidental. CT the abdomen pelvis notes some small bowel fluid levels consistent with possible enteritis or ileus. May just be a gastroenteritis. Patient requires admission for further differentiation of possible infective source for her fever with neutropenia. Hospitalist was contacted. Urine later returns negative and hospitalist ordered a COVID test that was negative. DIAGNOSIS: Neutropenic fever, shortness of breath, chest pain, nausea vomiting DISPOSITION: Hospitalist will evaluate Patient was agreeable with this plan. Critical Care I have personally spent 38 minutes of critical care time in the direct management of this patient. This includes bedside care, interpretation of diagnostic studies, and testing, discussion with consultants, patient, and family members, and other required patient management activities. These 38 minutes is in excess of all separately billable procedures. Past Med/Surg History Medical History Acute kidney injury Acute shoulder pain Now a constant ache - no prescription meds needed Anxiety Chronic venous insufficiency follows with vascular (Dr. Carlson) CKD (chronic kidney disease), stage III COPD with emphysema Dentalgia Depression Hypertension Kidney stones LAD (lymphadenopathy), mediastinal Major depressive disorder, recurrent episode with anxious distress Daughter from OD in 2016 Migraine Nicotine dependence Polysubstance overdose Hx of 2017 Pulmonary nodule "7 mm RUL nodule, stable 09/25/15 - 09/16/16; repeat 6 mos" Surgical History History of bronchoscopy 10/30/2019 - with EBUS History of cataract surgery 2004 - bilateral History of section 1991 History of colonoscopy unsuccessful (poor bowel prep) History of cystoscopy 2007 - with stent History of dental surgery 02/2019 - Full upper teeth extracted S/P arthroscopy of left knee S/P arthroscopy of right knee Family History Grandmother (Maternal) , Passed in 80's of metastatic cancer (unknown primary) No problems noted. Mother , Passed age 93 of natural causes No problems noted. Father , Passed age 97 of natural causes No problems noted. Brother No problems noted. Daughter , Passed age 24 from Over Dose No problems noted. 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 [employer] Other Information That Helps Us Care for You: No Feels Safe at Home: Yes Safety Concerns: Feels Safe At This Time Childhood Exposure to Second-Hand Smoke: No caffeine: Yes (2 cups of coffee/day ) during the past year weight has: remained stable Dental Care, Regularly: Yes Allergies Allergies Allergy/AdvReac Type Severity Reaction Status Date / Time mushroom Allergy Severe anaphylaxis Verified 12/23/19 17:07 Penicillins Allergy Severe anaphylaxis, Verified 12/23/19 17:07 facial & throat swelling acetazolamide Allergy Unknown rash, hives Verified 12/23/19 17:07 mold Allergy Unknown unknown Verified 12/23/19 17:07 reaction sumatriptan AdvReac Unknown flushing, Verified 12/23/19 17:07 heart racing Home Meds Home Medications Medication Instructions Recorded Confirmed aripiprazole 10 mg tablet 10 mg PO HS 09/18/19 12/23/19 duloxetine 60 mg PO QAM 10/13/19 12/23/19 ibuprofen [Advil] 400 mg PO Q12H PRN 10/13/19 12/23/19 multivitamin 1 tab PO QAM 11/08/19 12/23/19 Magic Swizzle 15 ml PO ACHS 12/23/19 12/23/19 dexamethasone [Decadron] 4 mg PO UD 12/23/19 12/23/19 hydroxyzine HCl 50 mg PO TID PRN 12/23/19 12/23/19 melatonin 5 mg PO HS PRN 12/23/19 12/23/19 ondansetron HCl [Zofran] 8 mg PO Q8 PRN 12/23/19 12/23/19 prochlorperazine maleate 10 mg PO Q6 PRN 12/23/19 12/23/19 [Compazine] Previous Rx's Medication Instructions Recorded albuterol sulfate 90 mcg/actuation 2 puff INH Q6H PRN #18 gm 10/23/19 aerosol inhaler umeclidinium 62.5 mcg-vilanterol 1 puffs INH DAILY #60 ea 10/23/19 25 mcg/actuation powdr for inhalation nicotine 14 mg/24 hr daily 1 patch TD DAILY #28 ea 11/12/19 transdermal patch hydrocodone-homatropine 2.5 ml PO Q6H PRN #100 ml 12/01/19 Results & Data (ED) Vital Signs Vital Signs - 24 hr 12/23/19 14:17 12/23/19 15:00 12/23/19 15:08 Temperature 37.8 C H Temperature Source Oral Pulse Rate 116 H 86 Pulse Rate from SpO2 Sensor 95 H Pulse Rhythm Regular Respiratory Rate 24 22 Respiratory Effort / Characteristics Non-Labored Spontaneous Non-Labored Spontaneous Respiratory Depth Normal Respiratory Pattern Regular Blood Pressure 90/65 L 127/93 Blood Pressure Mean 73 106 Pulse Oximetry 95 98 Oxygen Delivery Method Room Air Room Air Room Air Sepsis Recent Fever Within 48 Hours No Sepsis New/Unexplained Change in Mental Status No Sepsis Action Taken by Nursing No Action Required 12/23/19 15:09 12/23/19 15:30 12/23/19 15:45 Temperature Temperature Source Pulse Rate 108 H 97 H Pulse Rate from SpO2 Sensor 107 H 97 H Pulse Rhythm Respiratory Rate 25 H 28 H Respiratory Effort / Characteristics Non-Labored Spontaneous Respiratory Depth Respiratory Pattern Blood Pressure 126/73 Blood Pressure Mean 92 Pulse Oximetry 95 100 Oxygen Delivery Method Room Air Room Air Room Air Sepsis Recent Fever Within 48 Hours Sepsis New/Unexplained Change in Mental Status Sepsis Action Taken by Nursing 12/23/19 16:00 12/23/19 16:30 12/23/19 16:45 Temperature Temperature Source Pulse Rate 94 H 94 H 95 H Pulse Rate from SpO2 Sensor 95 H 94 H 96 H Pulse Rhythm Respiratory Rate 22 22 23 Respiratory Effort / Characteristics Non-Labored Spontaneous Non-Labored Spontaneous Respiratory Depth Respiratory Pattern Blood Pressure 136/64 122/66 Blood Pressure Mean 109 76 Pulse Oximetry 97 95 95 Oxygen Delivery Method Room Air Room Air Room Air Sepsis Recent Fever Within 48 Hours Sepsis New/Unexplained Change in Mental Status Sepsis Action Taken by Nursing 12/23/19 17:00 12/23/19 17:04 12/23/19 17:30 Temperature 37.5 C Temperature Source Oral Pulse Rate 91 H 95 H Pulse Rate from SpO2 Sensor 92 H 95 H Pulse Rhythm Respiratory Rate 34 H 17 Respiratory Effort / Characteristics Non-Labored Spontaneous Non-Labored Spontaneous Respiratory Depth Respiratory Pattern Blood Pressure 119/76 116/81 Blood Pressure Mean 93 95 Pulse Oximetry 94 95 Oxygen Delivery Method Room Air Room Air Sepsis Recent Fever Within 48 Hours Sepsis New/Unexplained Change in Mental Status Sepsis Action Taken by Nursing 12/23/19 18:00 12/23/19 18:16 12/23/19 18:30 Temperature Temperature Source Pulse Rate 94 H 94 H 93 H Pulse Rate from SpO2 Sensor 94 H 94 H 93 H Pulse Rhythm Respiratory Rate 29 H 29 H 22 Respiratory Effort / Characteristics Non-Labored Spontaneous Non-Labored Spontaneous Respiratory Depth Respiratory Pattern Blood Pressure 119/92 117/77 Blood Pressure Mean 102 93 Pulse Oximetry 95 94 94 Oxygen Delivery Method Room Air Room Air Sepsis Recent Fever Within 48 Hours Sepsis New/Unexplained Change in Mental Status Sepsis Action Taken by Nursing 12/23/19 18:46 12/23/19 19:00 Temperature Temperature Source Pulse Rate 94 H 92 H Pulse Rate from SpO2 Sensor 94 H 92 H Pulse Rhythm Respiratory Rate 20 26 H Respiratory Effort / Characteristics Non-Labored Spontaneous Respiratory Depth Respiratory Pattern Blood Pressure 116/77 Blood Pressure Mean 90 Pulse Oximetry 93 94 Oxygen Delivery Method Room Air Sepsis Recent Fever Within 48 Hours Sepsis New/Unexplained Change in Mental Status Sepsis Action Taken by Nursing Laboratory Data Result diagrams: 12/23/19 14:48 12/23/19 14:48 Lab Results 12/23/19 12/23/19 12/23/19 Range/Units 14:48 14:48 14:48 WBC 1.03 L (4.8-10.8) K/uL RBC 3.93 L (4.2-5.4) M/uL Hgb 11.6 L (12.0-16.0) g/dL Hct 33.8 L (37-47) % MCV 86.0 (80-100) fL MCH 29.5 (25-34) pg MCHC 34.3 (32-36) g/dL RDW Std Deviation 45.2 (36.4-46.3) fL RDW Coeff of Anjelica 14.5 (11.5-14.5) % Plt Count 65 L (130-400) K/uL MPV 10.6 H (7.4-10.4) fL Immature Gran % (Auto) 1.0 % Neut % (Auto) 2.9 % Lymph % (Auto) 49.5 % [place] % (Auto) 43.7 % Eos % (Auto) 1.9 % Baso % (Auto) 1.0 % Neut # (Auto) 0.03 L* (1.4-6.5) K/uL Lymph # (Auto) 0.51 L (1.2-3.4) K/uL [place] # (Auto) 0.45 (0.11-0.59) K/uL Eos # (Auto) 0.02 (0-0.5) K/uL Baso # (Auto) 0.01 (0-0.2) K/uL Immature Gran # (Auto) 0.01 (0.00-0.02) K/uL Platelet Estimate Decreased L (Normal) Giant Platelets 1+ PT (9.0-12.0) Seconds INR (0.9-1.1) APTT (21.0-31.0) Seconds PTT Ratio Sodium 130 L (136-145) mmol/L Potassium 3.6 (3.5-5.1) mmol/L Chloride 97 L (98-107) mmol/L Carbon Dioxide 23 (21-32) mmol/L Anion Gap 10.0 (3-11) BUN 12 (7-18) mg/dl Creatinine 1.23 H (0.6-1.2) mg/dl Est Cr Clr Drug Dosing 52.4 ml/min Est GFR ( Amer) 53.7 Est GFR (Non-Af Amer) 46.3 BUN/Creatinine Ratio 9.5 L (10-20) Glucose 128 H (70-99) mg/dl Lactate 1.3 (0.4-2.0) mmol/L Calcium 8.9 (8.5-10.1) mg/dl Magnesium 1.5 L (1.8-2.4) mg/dl Total Bilirubin 0.4 (0.2-1) mg/dl AST 10 L (15-37) U/L ALT 15 (12-78) U/L Alkaline Phosphatase 102 (45-117) U/L Troponin I < 0.015 (0-0.045) ng/ml Total Protein 7.4 (6.4-8.2) gm/dl Albumin 2.7 L (3.4-5.0) gm/dl Globulin 4.7 H (2.5-4.0) gm/dl Albumin/Globulin Ratio 0.6 L (0.9-2) Lipase 46 L (73-393) U/L Procalcitonin (0-0.5) ng/ml Urine Color Urine Appearance (Clear) Urine pH (4.5-7.5) Ur Specific Kennedy (1.000-1.030) Urine Protein (Negative) Urine Glucose (UA) (Negative) Urine Ketones (Negative) Urine Blood (Negative) Urine Nitrite (Negative) Urine Bilirubin (Negative) Urine Urobilinogen (Negative) Ur Leukocyte Esterase (Negative) Urine WBC (Auto) (0-5) /hpf Urine RBC (Auto) (0-4) /hpf U Hyaline Cast (Auto) (0-5) /lpf U Epithel Cells (Auto) (0-5) /lpf Urine Bacteria (Auto) (Negative) COVID-19 Eval Order COVID-19 PCR (Negative) 12/23/19 12/23/19 12/23/19 Range/Units 14:49 14:49 17:01 WBC (4.8-10.8) K/uL RBC (4.2-5.4) M/uL Hgb (12.0-16.0) g/dL Hct (37-47) % MCV (80-100) fL MCH (25-34) pg MCHC (32-36) g/dL RDW Std Deviation (36.4-46.3) fL RDW Coeff of Anjelica (11.5-14.5) % Plt Count (130-400) K/uL MPV (7.4-10.4) fL Immature Gran % (Auto) % Neut % (Auto) % Lymph % (Auto) % [place] % (Auto) % Eos % (Auto) % Baso % (Auto) % Neut # (Auto) (1.4-6.5) K/uL Lymph # (Auto) (1.2-3.4) K/uL [place] # (Auto) (0.11-0.59) K/uL Eos # (Auto) (0-0.5) K/uL Baso # (Auto) (0-0.2) K/uL Immature Gran # (Auto) (0.00-0.02) K/uL Platelet Estimate (Normal) Giant Platelets PT 11.4 (9.0-12.0) Seconds INR 1.1 (0.9-1.1) APTT 29.4 (21.0-31.0) Seconds PTT Ratio 1.1 Sodium (136-145) mmol/L Potassium (3.5-5.1) mmol/L Chloride (98-107) mmol/L Carbon Dioxide (21-32) mmol/L Anion Gap (3-11) BUN (7-18) mg/dl Creatinine (0.6-1.2) mg/dl Est Cr Clr Drug Dosing ml/min Est GFR ( Amer) Est GFR (Non-Af Amer) BUN/Creatinine Ratio (10-20) Glucose (70-99) mg/dl Lactate (0.4-2.0) mmol/L Calcium (8.5-10.1) mg/dl Magnesium (1.8-2.4) mg/dl Total Bilirubin (0.2-1) mg/dl AST (15-37) U/L ALT (12-78) U/L Alkaline Phosphatase (45-117) U/L Troponin I (0-0.045) ng/ml Total Protein (6.4-8.2) gm/dl Albumin (3.4-5.0) gm/dl Globulin (2.5-4.0) gm/dl Albumin/Globulin Ratio (0.9-2) Lipase (73-393) U/L Procalcitonin 0.16 (0-0.5) ng/ml Urine Color Yellow Urine Appearance Clear (Clear) Urine pH 5.5 (4.5-7.5) Ur Specific Kennedy > 1.045 H (1.000-1.030) Urine Protein Trace H (Negative) Urine Glucose (UA) Negative (Negative) Urine Ketones Negative (Negative) Urine Blood Negative (Negative) Urine Nitrite Negative (Negative) Urine Bilirubin Negative (Negative) Urine Urobilinogen Negative (Negative) Ur Leukocyte Esterase Negative (Negative) Urine WBC (Auto) 1-5 (0-5) /hpf Urine RBC (Auto) 0-4 (0-4) /hpf U Hyaline Cast (Auto) 1-5 (0-5) /lpf U Epithel Cells (Auto) >30 H (0-5) /lpf Urine Bacteria (Auto) Negative (Negative) COVID-19 Eval Order COVID-19 PCR (Negative) 12/23/19 12/23/19 Range/Units 17:48 17:48 WBC (4.8-10.8) K/uL RBC (4.2-5.4) M/uL Hgb (12.0-16.0) g/dL Hct (37-47) % MCV (80-100) fL MCH (25-34) pg MCHC (32-36) g/dL RDW Std Deviation (36.4-46.3) fL RDW Coeff of Anjelica (11.5-14.5) % Plt Count (130-400) K/uL MPV (7.4-10.4) fL Immature Gran % (Auto) % Neut % (Auto) % Lymph % (Auto) % [place] % (Auto) % Eos % (Auto) % Baso % (Auto) % Neut # (Auto) (1.4-6.5) K/uL Lymph # (Auto) (1.2-3.4) K/uL [place] # (Auto) (0.11-0.59) K/uL Eos # (Auto) (0-0.5) K/uL Baso # (Auto) (0-0.2) K/uL Immature Gran # (Auto) (0.00-0.02) K/uL Platelet Estimate (Normal) Giant Platelets PT (9.0-12.0) Seconds INR (0.9-1.1) APTT (21.0-31.0) Seconds PTT Ratio Sodium (136-145) mmol/L Potassium (3.5-5.1) mmol/L Chloride (98-107) mmol/L Carbon Dioxide (21-32) mmol/L Anion Gap (3-11) BUN (7-18) mg/dl Creatinine (0.6-1.2) mg/dl Est Cr Clr Drug Dosing ml/min Est GFR ( Amer) Est GFR (Non-Af Amer) BUN/Creatinine Ratio (10-20) Glucose (70-99) mg/dl Lactate (0.4-2.0) mmol/L Calcium (8.5-10.1) mg/dl Magnesium (1.8-2.4) mg/dl Total Bilirubin (0.2-1) mg/dl AST (15-37) U/L ALT (12-78) U/L Alkaline Phosphatase (45-117) U/L Troponin I (0-0.045) ng/ml Total Protein (6.4-8.2) gm/dl Albumin (3.4-5.0) gm/dl Globulin (2.5-4.0) gm/dl Albumin/Globulin Ratio (0.9-2) Lipase (73-393) U/L Procalcitonin (0-0.5) ng/ml Urine Color Urine Appearance (Clear) Urine pH (4.5-7.5) Ur Specific Kennedy (1.000-1.030) Urine Protein (Negative) Urine Glucose (UA) (Negative) Urine Ketones (Negative) Urine Blood (Negative) Urine Nitrite (Negative) Urine Bilirubin (Negative) Urine Urobilinogen (Negative) Ur Leukocyte Esterase (Negative) Urine WBC (Auto) (0-5) /hpf Urine RBC (Auto) (0-4) /hpf U Hyaline Cast (Auto) (0-5) /lpf U Epithel Cells (Auto) (0-5) /lpf Urine Bacteria (Auto) (Negative) COVID-19 Eval Order Covid19 Done at [facility] COVID-19 PCR NEGATIVE (Negative) Administered Medications Acetaminophen (Acetaminophen 325 Mg Tab) 650 mg PO Q4H PRN PRN Reason: Pain or Fever Stop: 01/22/20 20:07 Last Admin: 12/23/19 20:50 Dose: 650 mg Documented by: [id number] Aripiprazole (Aripiprazole 10 Mg Tab) 10 mg PO HS LC Stop: 01/22/20 20:59 Last Admin: 12/23/19 20:49 Dose: 10 mg Documented by: [id number] Lidocaine HCl 60 ml/Diphenhydramine HCl 150 mg/ Al Hydrox/Mg Hydrox/Simethicone 60 ml/ Glycerin 60 ml/ BARCODE IDENTIFIER 1 ea 0 ml MT ACHS LC Stop: 01/22/20 20:59 Last Admin: 12/23/19 21:06 Dose: Not Given Documented by: [id number] Docusate Sodium (Docusate Sodium 100 Mg Cap) 100 mg PO BID LC Stop: 01/22/20 20:59 Last Admin: 12/23/19 21:06 Dose: Not Given Documented by: [id number] Sodium Chloride (Nss 1000ml) 1,000 mls @ 100 mls/hr IV .Q10H LC Stop: 12/24/19 06:07 Last Admin: 12/23/19 20:48 Dose: 100 mls/hr Documented by: [id number] Magnesium Sulfate/Dextrose (Magnesium Sulfate / D5w) 1 gm in 100 mls @ 50 mls/hr IV Q2H LC Stop: 12/24/19 00:59 Last Admin: 12/23/19 20:50 Dose: 50 mls/hr Documented by: [id number] Cefepime HCl 2,000 mg/ Syringe 20 mls @ 5 mls/min IV Q8H LC; Protocol Stop: 01/02/20 20:29 Last Admin: 12/23/19 21:36 Dose: 5 mls/min Documented by: [id number] Metronidazole (Flagyl) 500 mg in 100 mls @ 100 mls/hr IV Q8 LC Stop: 01/02/20 20:59 Last Admin: 12/23/19 21:37 Dose: 100 mls/hr Documented by: [id number] Nicotine (Nicotine 14 Mg/24 Hr Patch) 14 mg TD QAM LC Stop: 01/22/20 21:59 Last Admin: 12/23/19 21:37 Dose: 14 mg Documented by: [id number] Discontinued Medications Sodium Chloride (Nss 1000ml) 2,000 mls @ 999 mls/hr IV .Q2H1M LC Stop: 12/23/19 16:35 Last Infusion: 12/23/19 16:53 Dose: 0 mls/hr Documented by: [id number] Admin: 12/23/19 14:52 Dose: 999 mls/hr Documented by: [id number] Sodium Chloride (Nss 1000ml) 1,000 mls @ 999 mls/hr IV .Q1H1M LC Stop: 12/23/19 15:36 Last Admin: 12/23/19 15:22 Dose: Not Given Documented by: [id number] Acetaminophen (Ofirmev) 1,000 mg in 100 mls @ 400 mls/hr IV NOW STA Stop: 12/23/19 14:50 Last Infusion: 12/23/19 15:28 Dose: 0 mls/hr Documented by: [id number] Admin: 12/23/19 15:13 Dose: 400 mls/hr Documented by: [id number] Cefepime HCl (Maxipime) 2,000 mg in 20 mls @ 5 mls/min IV NOW STA; Protocol Stop: 12/23/19 14:40 Last Admin: 12/23/19 15:10 Dose: 5 mls/min Documented by: [id number] Magnesium Sulfate/Dextrose (Magnesium Sulfate / D5w) 1 gm in 100 mls @ 50 mls/hr IV Q2H STA Stop: 12/23/19 21:37 Last Admin: 12/23/19 20:22 Dose: Not Given Documented by: [id number] Ioversol (Optiray 320 125ml) 118 ml IV ONCE ONE Stop: 12/23/19 16:10 Last Admin: 12/23/19 16:09 Dose: 118 ml Documented by: [id number] Metoclopramide HCl (Metoclopramide Hcl Inj 5 Mg/Ml 2 Ml Vial) 5 mg IV ONE ONE Stop: 12/23/19 14:37 Last Admin: 12/23/19 15:09 Dose: 5 mg Documented by: [id number] Polyethylene Glycol (Polyethylene (Miralax) 17 Gm Pack) 17 gm PO ONE ONE Stop: 12/23/19 20:21 Last Admin: 12/23/19 21:06 Dose: Not Given Documented by: [id number] Discharge Plan Visit Data Chief Complaint: Chest Pain Stated Complaint: NAUSEA,VOMITING,CHEST PRESSURE ED Provider: Souleymane Garvey Discharge Problem: Neutropenia with fever, Breathlessness, Chest pressure, Nausea & vomiting Patient Disposition: Admitted As Inpatient Condition: Fair Discharge Instructions Interventions: ED Discharge Assessment Last Done: 12/23/19 19:44 Discharge Problem: Nausea & vomiting Qualifiers: Vomiting type: unspecified Vomiting Intractability: unspecified Qualified Code (s): R11.2 - Nausea with vomiting, unspecified
[2019-12-23] MEDS ORDERED: SODIUM CHLORIDE 0.9% 1000ML 1,000 ML IV SCH ×2 (14:45→20:08)
[2019-12-23 14:59] LABS: Hematocrit (blood only) 33.8 % (37-47); Hemoglobin 11.6 g/dL (12.0-16.0); Mean Corpuscular Hemoglobin 29.5 pg (25-34); Mean Corpuscular Hgb Conc 34.3 g/dL (32-36); RDW Coefficient of Variation 14.5 % (11.5-14.5); RDW Standard Deviation 45.2 fL (36.4-46.3); Red Blood Count 3.93 M/uL (4.2-5.4); White Blood Count 1.03 K/uL (4.8-10.8)
--- NOTE | 2019-12-23 14:59 | XRay Report ---
XR chest 1V portable HISTORY: 64 years-old Female SEPSIS acute sepsis COMPARISON: Chest radiographs 12/01/2019 TECHNIQUE: Portable AP view of the chest FINDINGS: Cardiomediastinal and hilar silhouettes are within normal limits. Calcified plaque of the thoracic ao rtic arch. No pneumothorax, pleural effusion, airspace consolidation or overt pulmonary edema. Right IJ Eotyvs-d-Lglt catheter distal tip terminates in the region of the inferior right brachiocephalic v ein. Bones of the chest appear grossly intact. IMPRESSION: No acute process. ACT 112: Negative or not required by law. The above report was generated using voice recognition software. It may contain grammatical, syntax o r spelling errors. Electronically signed by: Dannie Estrada M.D. 12/23/2019 2:58 PM
[2019-12-23 15:15] LABS: Alanine Aminotransferase 15 U/L (12-78); Albumin Level 2.7 gm/dl (3.4-5.0); Aspartate Aminotransferase 10 U/L (15-37); BUN Creatinine Ratio 9.5 (10-20); Blood Urea Nitrogen 12 mg/dl (7-18); Calcium 8.9 mg/dl (8.5-10.1); Carbon Dioxide 23 mmol/L (21-32); Chloride 97 mmol/L (98-107); Creatinine Clr Calc Pharmacy 52.4 ml/min; Est GFR (African American) 53.7; Est GFR (Non-African American) 46.3; Glucose 128 mg/dl (70-99); Lipase 46 U/L (73-393); Magnesium 1.5 mg/dl (1.8-2.4); Potassium 3.6 mmol/L (3.5-5.1); Sodium 130 mmol/L (136-145)
[2019-12-23 15:19] LABS: INR 1.1 (0.9-1.1); Partial Thromboplastin Ratio 1.1; Partial Thromboplastin Time 29.4 Seconds (21.0-31.0); Prothrombin Time 11.4 Seconds (9.0-12.0)
[2019-12-23 15:20] LABS: Albumin Globulin Ratio 0.6 (0.9-2); Alkaline Phosphatase 102 U/L (45-117); Bilirubin,Total 0.4 mg/dl (0.2-1); Globulin 4.7 gm/dl (2.5-4.0); Total Protein 7.4 gm/dl (6.4-8.2); Troponin I < 0.015 ng/ml (0-0.045)
[2019-12-23 15:21] LABS: Basophils # (auto) 0.01 K/uL (0-0.2); Eosinophils # (auto) 0.02 K/uL (0-0.5); Eosinophils % (auto) 1.9 %; Immature Granulocytes # (auto) 0.01 K/uL (0.00-0.02); Lymphocytes # (auto) 0.51 K/uL (1.2-3.4); Lymphocytes % (auto) 49.5 %; Mean Platelet Volume 10.6 fL (7.4-10.4); Monocytes # (auto) 0.45 K/uL (0.11-0.59); Monocytes % (auto) 43.7 %; Neutrophils # (auto) 0.03 K/uL (1.4-6.5); Neutrophils % (auto) 2.9 %; Platelet Count 65 K/uL (130-400)
[2019-12-23 15:22] LABS: Giant Platelets 1+; Platelet Estimate Decreased (Normal)
--- NOTE | 2019-12-23 15:24 | Electrocardiogram Report ---
Test Reason : Blood Pressure : / mmHG Vent. Rate : 119 BPM Atrial Rate : 119 BPM P-R Int : 116 ms QRS Dur : 080 ms QT Int : 300 ms P-R-T Axes : 051 060 056 degrees QTc Int : 422 ms Sinus tachycardia Otherwise normal ECG When compared with ECG of 08-NOV-2019 11:10, No significant change was found Confirmed by James Eldridge ([id number]) on 12/23/2019 3:23:55 PM Referred By: ER Confirmed By:James Eldridge
[2019-12-23] MEDS ORDERED: SODIUM CHLORIDE 0.9% 1000ML 2,000 ML IV SCH (15:36)
[2019-12-23] MEDS ORDERED: OPTIRAY 320 125ml IV ONE (16:09)
--- NOTE | 2019-12-23 16:31 | CT Scan Report ---
CT angio chest PE protocol CT DOSE: 2209.63 mGy.cm HISTORY: 64 years-old Female with PE, CP, SOB, Cancer. Acute chest pain with shortness of breath TECHNIQUE: Multiple CTA images of the chest were obtained after the intravenous administration of 118 ml Optiray 320. Coronal and sagittal MIPS were obtained from the axial data set and were submitted for review. All measurements were obtained according to NASCET criteria. A dose lowering technique w as utilized adhering to the principles of ALARA. COMPARISON: CT abdomen and pelvis of same day, PET CT 11/17/2019, CTA chest 11/08/2019, chest CT 09/25/19 16. FINDINGS: CTA: Heart is normal in size. No pericardial effusion. Moderate coronary artery and thoracic aortic calcif ications. There is no thoracic aortic aneurysm or dissection. Patency of the imaged great vessels. Pu lmonary artery is opacified to the level of the proximal segmental branches and demonstrates no filli ng defects to suggest thromboembolic disease. A large portion of the contrast bolus is still present within the SVC. 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 This is age-indeterminate however is new from the 09/25/2015 exam. A right I J central venous catheter is noted terminating within the SVC. Adjacent inflammatory stranding is not ed without discrete hematoma. CT CHEST: Heterogeneous thyroid. Mediastinal and hilar adenopathy redemonstrated. Subcarinal adenopathy measure s up to 2.5 x 1.8 cm, previously measuring up to 3.8 x 2.4 cm on 11/08/2019. Right hilar lymph nodes me asure up to 11 mm in short axis, previously 2.6 cm. No new or progressive adenopathy. There is no pne umothorax or pleural effusion. Ill-defined multifocal bilateral centrilobular groundglass opacities. Emphysema. Irregular 6 mm solid nodule of the right lung apex on image 243 series 4 stable. There are 2 additional right apical solid nodules measuring up to 4 mm which are also unchanged. No overt pulm onary edema or airspace consolidation typical for pneumonia. Central airways are patent. Nonspecific moderate diffuse esophageal wall thickening. Small hiatal hernia. No acute process of the imaged upper abdomen. There is a chronic ununited mid sternal fracture with unchanged alignment. No acute fracture. IMPRESSION: 1. No evidence of pulmonary thromboembolic disease. 2. Ill-defined multifocal centrilobular groundglass opacities are suspicious for a nonspecific infect ious or inflammatory pneumonitis. 3. Moderately decreased size of the mediastinal and hilar adenopathy suggests positive treatment resp onse. 4. Moderate mid and distal esophageal wall thickening, possibly posttreatment related. 5. Right IJ central venous catheter terminates within the mid SVC. There is moderate stranding and ed jose along the course of the catheter extending into the superior mediastinum, likely postprocedural. 6. Occlusion of the right subclavian vein with multiple opacified venous collaterals of the right deb[address] st wall, new from 2016. 7. Additional findings as above. ACT 112: Negative or not required by law. The above report was generated using voice recognition software. It may contain grammatical, syntax o r spelling errors. Electronically signed by: Dannie Estrada M.D. 12/23/2019 4:30 PM
--- NOTE | 2019-12-23 16:42 | CT Scan Report ---
ABDOMEN AND PELVIS CT WITH IV CONTRAST HISTORY: Acute shortness of breath with fever, nausea and vomiting sob, fever, cp, nausea, vomiting TECHNIQUE: Multiaxial CT images of the abdomen and pelvis were performed following the IV administrat ion of 118 cc of Optiray 320, A dose lowering technique was utilized adhering to the principles of A KIRSTEN. COMPARISON STUDY: CTA of the chest of same day, PET CT 11/17/2019 FINDINGS: Ill-defined groundglass opacities of the lung bases. No pneumatosis or pneumoperitoneum. The imaged i nferior cardiac chambers are unremarkable. The spleen, pancreas, adrenal glands and gallbladder are u nremarkable. Liver is within normal limits. Patency of the hepatic and portal veins. No biliary ducta l dilation. Unremarkable kidneys. No obstructive uropathy. Ureters, urinary bladder and uterus are unremarkable. Indeterminate 11 mm cystic structure of the left adnexum. Moderate mixed plaque of the abdominal aort a without aneurysm. No adenopathy. Unremarkable IVC. Partially imaged opacified venous collaterals of the right chest wall. Small hiatal hernia with moderate distal esophageal wall thickening. Scattered small bowel air-fluid levels without small bowel obstruction or definite bowel wall thickening. Mild colonic diverticulosis . Moderate fecal retention. There is no ascites or mesenteric inflammation. Noninflamed appendix. Sof t tissues are unremarkable. Degenerative changes of the spine, pelvis and hips. Bones appear intact. IMPRESSION: 1. No bowel obstruction or bowel wall thickening. Normal appendix. 2. Scattered small bowel air-fluid levels may reflect enteritis or ileus within the reported clinical setting of acute nausea and vomiting. 3. No adenopathy. 4. Moderate fecal retention. ACT 112: Negative or not required by law. The above report was generated using voice recognition software. It may contain grammatical, syntax o r spelling errors. Electronically signed by: Dannie Estrada M.D. 12/23/2019 4:41 PM
[2019-12-23 17:30] LABS: Appearance Urine Clear (Clear); Bacteria Urine Automated Negative (Negative); Bilirubin Urine Negative (Negative); Blood Urine Negative (Negative); Color Urine Yellow; Epithelial Cell Urine Auto >30 /lpf (0-5); Glucose Urine UA Negative (Negative); Ketones Urine Negative (Negative); Leukocyte Esterase Urine Negative (Negative); Nitrite Urine Negative (Negative); Protein Urine Trace (Negative); RBC Urine Automated 0-4 /hpf (0-4); Specific Gravity Urine > 1.045 (1.000-1.030); Urobilinogen Urine Negative (Negative); pH Urine 5.5 (4.5-7.5)
--- NOTE | 2019-12-23 18:20 | History & Physical Report ---
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 -Temp of 37.8 C, BP 95/75, HR 116, RR: 25 and pancytopenia (wbc: 1.03, hgb 11.6, plt 65) in setting of chemo and XRT for small cell carcinoma of lung -Absolute neutrophil count of 0.03. Lactic acid and procalcitonin wnl -CTA chest without evidence of pulmonary thromboembolic disease but ill-defined multifocal centrilobular groundglass opacities are suspicious for a nonspecific infectious or inflammatory pneumonitis -CT abd/pelvis without bowel obstruction or bowel wall thickening. Normal appendix. Scattered small bowel air-fluid levels may reflect enteritis or ileus within the reported clinical setting of acute nausea and vomiting. Moderate fecal retention. -Started empirically on cefepime. Adding Flagyl for anaerobic coverage for possible enteritis. Neutropenic precautions -COVID PCR today is negative. Blood and urine cultures pending (3) Hypomagnesemia: Initial Mg 1.5 in setting of GI losses, poor appetite. Giving replacement with 2 grams IV mag. Repeat Mg with AM labs (4) Chest pressure: Developed yesterday after radiation treatment. Describes as a burning pain similar to acid reflux -Initial troponin negative. EKG without acute ischemic changes. Will repeat troponin x 1 for completeness (5) Constipation: Moderate fecal retention on CT abd/pelvis. No evidence of bowel obstruction. Scheduling dose of Miralax tonight as well as Colace 100mg BID (6) Small cell lung cancer in adult: Established with Dr. Hebert last month, currently undergoing chemo treatment with cisplatin etoposide as well as radiation. Continue Compazine, Zofran and Zyprexa for symptomatic treatment of nausea and vomiting (7) CKD (chronic kidney disease), stage III: Creatinine elevated from baseline at 1.2 (bl ~1) in setting of poor PO intake, GI losses. Trend kidney function with daily BMP DVT Ppx: SCDs for now in setting of thrombocytopenia of 65 (previously ~200) Code status: FULL PCP: Valeriy Dispo: Admit to med tele. Plan to return home once medically stable. Patient seen in collaboration with Dr. Acharya. Please see addendum. 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 Had 4 episodes of emesis since yesterday with associated fever and chills. Endorses chronic cough that is unchanged. Denies headache or URI symptoms. Developed some burning of the chest following radiation yesterday that worsened overnight. No wheezing or sputum production. No abdominal pain, dysuria or diarrhea. Last bowel movement was 2 days ago. Established with Dr. Hebert of medical oncology in November and has completed first cycle of combined chemotherapy cisplatin etoposide along with radiation treatment. Is planning to start second cycle of chemo next week. History of SQ port placement by Dr. Huynh on 12/03/19. Allergies Allergy/AdvReac Type Severity Reaction Status Date / Time mushroom Allergy Severe anaphylaxis Verified 12/23/19 17:07 Penicillins Allergy Severe anaphylaxis, Verified 12/23/19 17:07 facial & throat swelling acetazolamide Allergy Unknown rash, hives Verified 12/23/19 17:07 mold Allergy Unknown unknown Verified 12/23/19 17:07 reaction sumatriptan AdvReac Unknown flushing, Verified 12/23/19 17:07 heart racing Home Medications Home Medications Medication Instructions Recorded Confirmed Type aripiprazole 10 mg tablet 10 mg PO HS 09/18/19 12/23/19 History duloxetine 60 mg PO QAM 10/13/19 12/23/19 History ibuprofen [Advil] 400 mg PO Q12H PRN 10/13/19 12/23/19 History albuterol sulfate 90 mcg/actuation 2 puff INH Q6H PRN #18 gm 10/23/19 12/23/19 Rx aerosol inhaler umeclidinium 62.5 mcg-vilanterol 1 puffs INH DAILY #60 ea 10/23/19 12/23/19 Rx 25 mcg/actuation powdr for inhalation multivitamin 1 tab PO QAM 11/08/19 12/23/19 History nicotine 14 mg/24 hr daily 1 patch TD DAILY #28 ea 11/12/19 12/23/19 Rx transdermal patch hydrocodone-homatropine 2.5 ml PO Q6H PRN #100 ml 12/01/19 12/23/19 Rx Magic Swizzle 15 ml PO ACHS 12/23/19 12/23/19 History dexamethasone [Decadron] 4 mg PO UD 12/23/19 12/23/19 History hydroxyzine HCl 50 mg PO TID PRN 12/23/19 12/23/19 History melatonin 5 mg PO HS PRN 12/23/19 12/23/19 History ondansetron HCl [Zofran] 8 mg PO Q8 PRN 12/23/19 12/23/19 History prochlorperazine maleate 10 mg PO Q6 PRN 12/23/19 12/23/19 History [Compazine] Past Med/Surg History Medical History Acute kidney injury Acute shoulder pain Now a constant ache - no prescription meds needed Anxiety Chronic venous insufficiency follows with vascular (Dr. Carlson) CKD (chronic kidney disease), stage III COPD with emphysema Dentalgia Depression Hypertension Kidney stones LAD (lymphadenopathy), mediastinal Major depressive disorder, recurrent episode with anxious distress Daughter from OD in 2016 Migraine Nicotine dependence Polysubstance overdose Hx of 2017 Pulmonary nodule "7 mm RUL nodule, stable 09/25/15 - 09/16/16; repeat 6 mos" Surgical History History of bronchoscopy 10/30/2019 - with EBUS History of cataract surgery 2004 - bilateral History of section 1991 History of colonoscopy unsuccessful (poor bowel prep) History of cystoscopy 2007 - with stent History of dental surgery 02/2019 - Full upper teeth extracted S/P arthroscopy of left knee S/P arthroscopy of right knee Family History Grandmother (Maternal) , Passed in 80's of metastatic cancer (unknown primary) No problems noted. Mother , Passed age 93 of natural causes No problems noted. Father , Passed age 97 of natural causes No problems noted. Brother No problems noted. Daughter , Passed age 24 from Over Dose No problems noted. 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 Physical Exam Physical Exam: General Appearance: vitals as above, NAD, sitting up in bed, pleasant, conversing easily Head: normocephalic, atraumatic Eyes: normal inspection, PERRL, conjunctivae normal, anicteric sclerae ENT: external ear and nose normal, oropharynx normal Neck: normal visual inspection, trachea midline, no thyromegaly Respiratory: normal respiratory effort, diminished lung sounds throughout, no wheeze, rales, rhonchi. No accessory muscle use Cardiovascular: regular rate, rhythm, no murmur appreciated, normal peripheral pulses, trace BLE edema. Vessels: no JVD Chest: normal inspection of chest. + Port R chest Abdomen/GI: normal bowel sounds, soft, nontender, no hepatosplenomegaly Extremities/Musculoskeletal: no cyanosis or clubbing, extremities motor strength 5/5 Neurologic: PERRL, EOMI, accommodation nl, no face palsy, no dysarthria, CN's II-XI intact bilaterally and moves all extremities Psychiatric: A+Ox3, euthymic affect Skin: no rashes, normal color, warm/dry Results & Data Results & Data ([facility]) Vital Signs (Past 12 Hours) Vital Signs Temp Pulse Resp BP Pulse Ox 12/23/19 18:00 94 H 29 H 119/92 95 12/23/19 17:30 95 H 17 116/81 95 12/23/19 17:04 37.5 C 12/23/19 17:00 91 H 34 H 119/76 94 12/23/19 16:45 95 H 23 95 12/23/19 16:30 94 H 22 122/66 95 12/23/19 16:00 94 H 22 136/64 97 12/23/19 15:45 97 H 28 H 100 12/23/19 15:30 108 H 25 H 126/73 12/23/19 15:09 95 12/23/19 15:00 86 22 127/93 98 12/23/19 14:17 37.8 C H 116 H 24 90/65 L 95 Laboratory Results Short CBC 12/23/19 Range/Units 14:48 WBC 1.03 L (4.8-10.8) K/uL Hgb 11.6 L (12.0-16.0) g/dL Hct 33.8 L (37-47) % Plt Count 65 L (130-400) K/uL BMP 12/23/19 14:48 Sodium 130 L Potassium 3.6 Chloride 97 L Carbon Dioxide 23 BUN 12 Creatinine 1.23 H Glucose 128 H Calcium 8.9 Cardiac Enzymes 12/23/19 Range/Units 14:48 Troponin I < 0.015 (0-0.045) ng/ml Liver Function 12/23/19 Range/Units 14:48 Total Bilirubin 0.4 (0.2-1) mg/dl AST 10 L (15-37) U/L ALT 15 (12-78) U/L Alkaline Phosphatase 102 (45-117) U/L Albumin 2.7 L (3.4-5.0) gm/dl Urine 12/23/19 Range/Units 17:01 Urine Color Yellow Urine Appearance Clear (Clear) Urine pH 5.5 (4.5-7.5) Ur Specific [place] > 1.045 H (1.000-1.030) Urine Protein Trace H (Negative) Urine Glucose (UA) Negative (Negative) Diagnostic Findings CXR: IMPRESSION: No acute process. Chest CTA: IMPRESSION: 1. No evidence of pulmonary thromboembolic disease. 2. Ill-defined multifocal centrilobular groundglass opacities are suspicious for a nonspecific infectious or inflammatory pneumonitis. 3. Moderately decreased size of the mediastinal and hilar adenopathy suggests positive treatment response. 4. Moderate mid and distal esophageal wall thickening, possibly posttreatment related. 5. Right IJ central venous catheter terminates within the mid SVC. There is moderate stranding and edema along the course of the catheter extending into the superior mediastinum, likely postprocedural. 6. Occlusion of the right subclavian vein with multiple opacified venous collaterals of the right chest wall, new from 2016. 7. Additional findings as above. CT abd/pelvis: IMPRESSION: 1. No bowel obstruction or bowel wall thickening. Normal appendix. 2. Scattered small bowel air-fluid levels may reflect enteritis or ileus within the reported clinical setting of acute nausea and vomiting. 3. No adenopathy. 4. Moderate fecal retention. ECG Rhythm: sinus tachycardia Supervising Physician Co-Signing Physician Notes Pt was seen and examined. Agreed with Shannon ELLSWORTH exam, assessment and plan. 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 Pt said that yesterday that he had multiple episodes vomiting with fever and chills. She just completed the course of the chemotherapy. CT chest and pelvis done in the ER showed no bowel obstruction or bowel wall thickening. Scattered small bowel air-fluid levels may reflect enteritis or ileus within the reported clinical setting of acute nausea and vomiting. WBC 1.03 and COVID 19 negative. CTA chest showed no evidence of pulmonary thromboembolic disease. Ill-defined multifocal centrilobular groundglass opacities are suspicious for a nonspecific infectious or inflammatory pneumonitis. blood cx collected in the ER pending. Will start on Cefepime and Flagyl. Electrolytes replaced. Will trend troponin. Continue IVF. Will hold on anticoagulant for DVT px for now due to low platelet, Will do SCDs. Will monitor electrolytes. Will monitor closely during the hospital course. MD Patrizia
[2019-12-23] MEDS ORDERED: MAGNESIUM SULFATE / D5W 1 GM/100 ML BAG IV STA (19:38)
[2019-12-23] MEDS ORDERED: ALBUTEROL HFA 8 GM INHALER INH PRN (19:42)
[2019-12-23] MEDS ORDERED: MELATONIN 3 MG TAB PO PRN (19:51)
[2019-12-23] MEDS ORDERED: ACETAMINOPHEN 325 MG TAB PO PRN (20:08)
[2019-12-23] MEDS ORDERED: POLYETHYLENE (MIRALAX) 17 GM PACK PO PRN (20:08)
[2019-12-23] MEDS ORDERED: POLYETHYLENE (MIRALAX) 17 GM PACK PO ONE (20:20)
[2019-12-23] MEDS ORDERED: ALUMINUM/MAGNESIUM SUSP 72 ML, LIDOCAINE HCL VISCOUS 2% 24 ML, BARCODE IDENTIFIER 1 EA PO PRN (20:25)
[2019-12-23] MEDS ORDERED: CEFEPIME CONSULT ACTIVE PRN (20:31)
[2019-12-23] MEDS ORDERED: METRONIDAZOLE CONSULT ACTIVE PRN (20:31)
[2019-12-23] MEDS: ARIPiprazole 10 MG TAB PO SCH (20:49)
[2019-12-23] MEDS: MAGNESIUM SULFATE / D5W 1 GM/100 ML BAG IV SCH ×2 (20:50→22:40)
[2019-12-23] MEDS ORDERED: NON-FORMULARY MEDICATION (Magic Swizzle 15 ML) PO SCH (21:00)
[2019-12-23] MEDS ORDERED: Magic Swizzle w/ Sucralfate 240mL PO SCH (21:00)
[2019-12-23] MEDS: Magic Swizzle w/Glycerin 240mL MT SCH (21:06)
[2019-12-23] MEDS: DOCUSATE SODIUM 100 MG CAP PO SCH (21:06)
[2019-12-23] MEDS: CEFEPIME 2,000 MG in SYRINGE 0 ML IV SCH (21:36)
[2019-12-23] MEDS: metroNIDAZOLE 500 MG/100 ML BAG IV SCH (21:37)
[2019-12-23] MEDS: NICOTINE 14 MG/24 HR PATCH TD SCH (21:37)
[2019-12-23] MEDS ORDERED: ENOXAPARIN INJ 40 MG/0.4 ML SYR SQ SCH (22:00)
[2019-12-24] MEDS: ONDANSETRON INJ 2 MG/ML 2 ML VIAL IV PRN ×4 (00:14→21:06)
[2019-12-24] MEDS: metroNIDAZOLE 500 MG/100 ML BAG IV SCH ×3 (05:44→21:35)
[2019-12-24] MEDS: CEFEPIME 2,000 MG in SYRINGE 0 ML IV SCH ×3 (05:45→21:28)
[2019-12-24 07:20] LABS: Hemoglobin 10.1 g/dL (12.0-16.0); Mean Corpuscular Hemoglobin 28.9 pg (25-34); Mean Corpuscular Hgb Conc 33.7 g/dL (32-36); Mean Platelet Volume 10.8 fL (7.4-10.4); Platelet Count 70 K/uL (130-400); RDW Coefficient of Variation 14.6 % (11.5-14.5); RDW Standard Deviation 45.3 fL (36.4-46.3); Red Blood Count 3.49 M/uL (4.2-5.4); White Blood Count 0.72 K/uL (4.8-10.8)
[2019-12-24] MEDS ORDERED: ACETAMINOPHEN 325 MG TAB PO PRN (07:29)
[2019-12-24] MEDS: DOCUSATE SODIUM 100 MG CAP PO SCH ×2 (07:33→21:27)
[2019-12-24] MEDS: Magic Swizzle w/Glycerin 240mL MT SCH ×4 (07:33→21:09)
[2019-12-24] MEDS: NICOTINE 14 MG/24 HR PATCH TD SCH (07:34)
[2019-12-24] MEDS: DULOXETINE HCL 60 MG CAP PO SCH (07:35)
[2019-12-24] MEDS: UMECLIDINIUM/VILANTEROL 62.5/25MCG 7 PUFFS/INHALER INH SCH (07:35)
[2019-12-24] MEDS: MULTIVITAMIN TAB PO SCH (07:35)
[2019-12-24 07:40] LABS: BUN Creatinine Ratio 9.7 (10-20); Calcium 8.5 mg/dl (8.5-10.1); Creatinine Clr Calc Pharmacy 67.1 ml/min; Est GFR (African American) 72.4; Est GFR (Non-African American) 62.5; Potassium 3.4 mmol/L (3.5-5.1)
[2019-12-24] MEDS ORDERED: ENOXAPARIN INJ 40 MG/0.4 ML SYR SQ SCH (09:00)
[2019-12-24] MEDS ORDERED: ACETAMINOPHEN 1,000 MG/100 ML VIAL IV PRN (09:03)
[2019-12-24] MEDS ORDERED: POTASSIUM CHLORIDE / WTR 10 MEQ/100 ML PLCT IV ONE (09:03)
[2019-12-24] MEDS ORDERED: METOPROLOL TARTRATE 1 MG/ML VIAL IV STA (09:03)
--- NOTE | 2019-12-24 09:35 | Hospitalist Progress Note ---
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 Normal appendix. Scattered small bowel air-fluid levels may reflect enteritis or ileus within the reported clinical setting of acute nausea and vomiting. Moderate fecal retention. -COVID 19 screening negative -Started empirically on cefepime and then also Flagyl for anaerobic coverage for possible enteritis. Urine analysis normal. Continue IV antibiotics, follow the admission blood cultures -continue Neutropenic precautions, follow the cell counts (3) Small cell lung cancer in adult: -Established with Dr. [place] Hebert last month, currently undergoing chemo treatment with cisplatin etoposide as well as radiation -on ant-emetics -would hold off radiation treatments while treatment for neutropenic fever (4) Chest pressure: -Developed after last radiation treatment when outpatient. Describes as a burning pain similar to acid reflux -negative troponins -12/24/2019 assessment: patient denies acute chest pain and describes that the midsternal chest where she has marked "X" for history of radiation treatments is more of a belching feeling -echocardiogram ordered to rule out pericarditis (5) CKD (chronic kidney disease), stage III: Acute Kidney disease on Chronic Kidney Disease stage 3 -admission creatinine of 1.2 in setting of some dehydration -downtrended to under 1 on 12/24/2019 after treatment Hyponatremia -serum sodium of 130 on admission likely from dehydration or poor oral intake, vomiting -serum sodium 135 on 12/24/2019 (6) Hypomagnesemia: -admission serum magnesium of 1.5 in setting of GI losses, poor appetite, was given replacement with 2 grams IV mag -serum magnesium on 2 on 12/24/2019 and is at goal for now Nausea and Vomiting -on anti-emetics (7) Constipation: -Moderate fecal retention on admission CT abd/pelvis. No evidence of bowel obstruction -on bowel regimen DVT Ppx: SCDs for now in setting of thrombocytopenia Code status: FULL PCP: Valeriy Admission and Anticipated Discharge Date Admission Date: December 23, 2019 Subjective Patient reported that she had nausea and vomiting episodes today. On my exam, she is not in distress. patient denies acute chest pain and describes that the midsternal chest where she has marked "X" for history of radiation treatments is more of a belching feeling. she denies acute chest pain or abdominal pain. she denies problems with ambulation. no shortness of breath. she reports of headache. Review of Systems Review of Systems: All systems reviewed & are unremarkable except as noted in Subjective Physical Exam Constitutional: cooperative Eyes: PERRL, conjunctivae normal, anicteric sclerae ENMT: external ear and nose normal, oropharynx normal Neck: trachea midline, no thyromegaly normal visual inspection Respiratory: normal respiratory effort, lungs clear to auscultation Gastrointestinal (Abdomen): normal bowel sounds, soft, nontender, no hepatosplenomegaly Musculoskeletal: Head/Neck/Chest: normocephalic Neurologic: moves all extremities Psychiatric: A+Ox3, euthymic affect Results & Data Results & Data ([facility]) Vital Signs (Past 12 Hours) Vital Signs Temp Pulse Pulse Resp BP BP BP 12/24/19 09:20 117 H 158/74 H 12/24/19 08:55 37.9 C H 111 H 20 106/67 12/24/19 01:14 102 H 12/24/19 00:30 37.0 C 102 H 20 94/57 L 12/23/19 23:33 36.8 C 95 H 20 107/54 L Pulse Ox 12/24/19 09:20 12/24/19 08:55 92 12/24/19 01:14 12/24/19 00:30 94 12/23/19 23:33 94
[2019-12-24] MEDS ORDERED: METOPROLOL TARTRATE 1 MG/ML VIAL IV PRN (09:49)
[2019-12-24] MEDS ORDERED: SODIUM CHLORIDE 0.9% 1000ML 500 ML IV ONE (09:50)
[2019-12-24] MEDS: HEPARIN 100 UNIT/ML 5ML FLUSH FLUSH PRN ×2 (15:08→22:48)
[2019-12-24] MEDS: IBUPROFEN 200 MG TAB PO PRN (15:09)
[2019-12-24] MEDS: NYSTATIN POWDER 15GM BTL EXT PRN (21:10)
[2019-12-24] MEDS: ARIPiprazole 10 MG TAB PO SCH (21:27)
[2019-12-25] MEDS: PROMETHAZINE HCL 12.5 MG in SODIUM CHLORIDE 0.9% 50 ML IV PRN ×5 (00:05→22:42)
[2019-12-25 06:02] LABS: Hematocrit (blood only) 28.8 % (37-47); Hemoglobin 9.9 g/dL (12.0-16.0); Mean Corpuscular Hemoglobin 29.4 pg (25-34); Mean Corpuscular Hgb Conc 34.4 g/dL (32-36); Mean Corpuscular Volume 85.5 fL (80-100); RDW Coefficient of Variation 14.7 % (11.5-14.5); RDW Standard Deviation 46.1 fL (36.4-46.3); Red Blood Count 3.37 M/uL (4.2-5.4); White Blood Count 1.41 K/uL (4.8-10.8)
[2019-12-25 06:10] LABS: Mean Platelet Volume 10.4 fL (7.4-10.4); Platelet Count 94 K/uL (130-400)
[2019-12-25 06:25] LABS: BUN Creatinine Ratio 9.5 (10-20); Calcium 8.3 mg/dl (8.5-10.1); Creatinine Clr Calc Pharmacy 79.7 ml/min; Est GFR (Non-African American) 76.8; Magnesium 1.8 mg/dl (1.8-2.4); Potassium 3.2 mmol/L (3.5-5.1)
[2019-12-25] MEDS: CEFEPIME 2,000 MG in SYRINGE 0 ML IV SCH ×2 (06:29→14:45)
[2019-12-25] MEDS: metroNIDAZOLE 500 MG/100 ML BAG IV SCH ×2 (07:17→14:45)
[2019-12-25] MEDS: Magic Swizzle w/Glycerin 240mL MT SCH ×4 (08:18→20:24)
[2019-12-25] MEDS: HEPARIN 100 UNIT/ML 5ML FLUSH FLUSH PRN ×2 (08:23→16:53)
[2019-12-25] MEDS: NYSTATIN POWDER 15GM BTL EXT PRN (08:26)
[2019-12-25] MEDS: DULOXETINE HCL 60 MG CAP PO SCH (08:28)
[2019-12-25] MEDS: NICOTINE 14 MG/24 HR PATCH TD SCH (08:28)
[2019-12-25] MEDS: DOCUSATE SODIUM 100 MG CAP PO SCH ×2 (08:28→20:23)
[2019-12-25] MEDS: UMECLIDINIUM/VILANTEROL 62.5/25MCG 7 PUFFS/INHALER INH SCH (08:28)
[2019-12-25] MEDS: MULTIVITAMIN TAB PO SCH (08:29)
[2019-12-25 09:06] LABS: Eosinophils # (auto) 0.05 K/uL (0-0.5); Eosinophils % (auto) 3.5 %; Immature Granulocytes # (auto) 0.02 K/uL (0.00-0.02); Immature Granulocytes % (auto) 1.4 %; Lymphocytes # (auto) 0.32 K/uL (1.2-3.4); Lymphocytes % (auto) 22.4 %; Monocytes # (auto) 0.57 K/uL (0.11-0.59); Monocytes % (auto) 39.9 %; Neutrophils # (auto) 0.47 K/uL (1.4-6.5); Neutrophils % (auto) 32.8 %
[2019-12-25 09:08] LABS: Giant Platelets 1+; Toxic Granulation 1+
[2019-12-25] MEDS ORDERED: MAGNESIUM SULFATE / D5W 1 GM/100 ML BAG IV ONE (09:30)
[2019-12-25] MEDS ORDERED: POTASSIUM CHLORIDE 20 MEQ TABCR PO ONE (09:30)
[2019-12-25] MEDS ORDERED: POTASSIUM CHLORIDE / WTR 10 MEQ/100 ML PLCT IV ONE (09:30)
--- NOTE | 2019-12-25 10:00 | Hospitalist Progress Note ---
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 Normal appendix. Scattered small bowel air-fluid levels may reflect enteritis or ileus within the reported clinical setting of acute nausea and vomiting. Moderate fecal retention. -COVID 19 screening negative -Started empirically on cefepime and then also Flagyl for anaerobic coverage for possible enteritis. Urine analysis normal. Continue IV antibiotics, follow the admission blood cultures -continue Neutropenic precautions, follow the cell counts -mildly improved WBC on 12/25/2019, the cultures so far are not growth any particular microbe, continue empiric IV antibiotics for now (3) Hypomagnesemia: -admission serum magnesium of 1.5 in setting of GI losses, poor appetite, was given replacement with 2 grams IV mag -serum magnesium on 2 on 12/24/2019 -serum magnesium 1.8 and magnesium is ordered Nausea and Vomiting -on anti-emetics, continue as prn Phenergan (4) Chest pressure: -Developed after last radiation treatment when outpatient. Describes as a burning pain similar to acid reflux -negative troponins -12/24/2019 assessment: patient denies acute chest pain and describes that the midsternal chest where she has marked "X" for history of radiation treatments is more of a belching feeling -echocardiogram does not find evidence of pericarditis (5) Constipation: -Moderate fecal retention on admission CT abd/pelvis. No evidence of bowel obstruction -on bowel regimen (6) Small cell lung cancer in adult: -Established with Dr. Washington Hebert last month, currently undergoing chemo treatment with cisplatin etoposide as well as radiation -Dr. Hebert discussed he will like to resume radiation therapy starting on 12/25/2019 as WBC trending up (7) CKD (chronic kidney disease), stage III: Acute Kidney disease on Chronic Kidney Disease stage 3 -admission creatinine of 1.2 in setting of some dehydration -downtrended to under 1 on 12/24/2019 after treatment Hyponatremia -serum sodium of 130 on admission likely from dehydration or poor oral intake, vomiting -serum sodium 137 on 12/25/2019 DVT Ppx: SCDs for now in setting of thrombocytopenia Code status: FULL PCP: Valeriy Admission and Anticipated Discharge Date Admission Date: December 23, 2019 Subjective Patient with nausea and she did have vomiting with sold food but she wants to try mash potatoes today. Patient's white blood cell counts mildly improved and she agrees with Dr. Hebert recommendation to continue radiation therapy today. Patient denies any midsternal chest bloating today. no abdomen pain. no dizziness. no headache. no shortness of breath Review of Systems Review of Systems: All systems reviewed & are unremarkable except as noted in Subjective Physical Exam Constitutional: cooperative Eyes: PERRL, conjunctivae normal, anicteric sclerae ENMT: external ear and nose normal, oropharynx normal Neck: trachea midline, no thyromegaly normal visual inspection Respiratory: normal respiratory effort, lungs clear to auscultation Gastrointestinal (Abdomen): normal bowel sounds, soft, nontender, no hepatosplenomegaly Musculoskeletal: Head/Neck/Chest: normocephalic Neurologic: moves all extremities Psychiatric: A+Ox3, euthymic affect Results & Data Results & Data ([facility]) Vital Signs (Past 12 Hours) Vital Signs Temp Pulse Pulse Pulse Resp BP Pulse Ox 12/25/19 07:23 101 H 12/25/19 07:17 37.1 C 102 H 18 113/78 96 12/25/19 04:02 93 H 12/25/19 03:30 37.3 C 100 H 18 122/78 96 12/24/19 22:20 37.0 C 90 18 94
[2019-12-25] MEDS: IBUPROFEN 200 MG TAB PO PRN (19:00)
[2019-12-25] MEDS: ARIPiprazole 10 MG TAB PO SCH (20:23)
[2019-12-26] MEDS: HEPARIN 100 UNIT/ML 5ML FLUSH FLUSH PRN ×4 (00:58→20:27)
[2019-12-26] MEDS: PROMETHAZINE HCL 12.5 MG in SODIUM CHLORIDE 0.9% 50 ML IV PRN ×4 (04:53→19:19)
[2019-12-26 06:18] LABS: Hematocrit (blood only) 30.7 % (37-47); Mean Corpuscular Hemoglobin 28.1 pg (25-34); Mean Corpuscular Hgb Conc 32.6 g/dL (32-36); Mean Corpuscular Volume 86.2 fL (80-100); Mean Platelet Volume 9.8 fL (7.4-10.4); Platelet Count 131 K/uL (130-400); RDW Coefficient of Variation 14.7 % (11.5-14.5); RDW Standard Deviation 46.3 fL (36.4-46.3); Red Blood Count 3.56 M/uL (4.2-5.4); White Blood Count 1.93 K/uL (4.8-10.8)
[2019-12-26 06:55] LABS: Albumin Level 2.1 gm/dl (3.4-5.0); BUN Creatinine Ratio 8.6 (10-20); Calcium 8.4 mg/dl (8.5-10.1); Creatinine Clr Calc Pharmacy 88.1 ml/min; Est GFR (African American) 100.9; Magnesium 1.8 mg/dl (1.8-2.4)
[2019-12-26 06:57] LABS: Basophils # (auto) 0.01 K/uL (0-0.2); Basophils % (auto) 0.5 %; Eosinophils # (auto) 0.06 K/uL (0-0.5); Eosinophils % (auto) 3.1 %; Immature Granulocytes # (auto) 0.08 K/uL (0.00-0.02); Immature Granulocytes % (auto) 4.1 %; Lymphocytes # (auto) 0.45 K/uL (1.2-3.4); Lymphocytes % (auto) 23.3 %; Monocytes # (auto) 0.61 K/uL (0.11-0.59); Monocytes % (auto) 31.6 %; Neutrophils # (auto) 0.72 K/uL (1.4-6.5); Neutrophils % (auto) 37.4 %; Toxic Granulation 1+
[2019-12-26 06:58] LABS: Albumin Globulin Ratio 0.6 (0.9-2); Bilirubin,Total 0.2 mg/dl (0.2-1); Globulin 3.8 gm/dl (2.5-4.0); Total Protein 5.9 gm/dl (6.4-8.2)
[2019-12-26] MEDS ORDERED: POTASSIUM CHLORIDE 20 MEQ TABCR PO ONE (07:45)
[2019-12-26] MEDS: POTASSIUM CHLORIDE / WTR 10 MEQ/100 ML PLCT IV SCH ×2 (08:04→10:12)
[2019-12-26] MEDS: Magic Swizzle w/Glycerin 240mL MT SCH ×4 (08:05→20:50)
[2019-12-26] MEDS: UMECLIDINIUM/VILANTEROL 62.5/25MCG 7 PUFFS/INHALER INH SCH (09:09)
[2019-12-26] MEDS: DULOXETINE HCL 60 MG CAP PO SCH (09:10)
[2019-12-26] MEDS: NICOTINE 14 MG/24 HR PATCH TD SCH (09:10)
[2019-12-26] MEDS: DOCUSATE SODIUM 100 MG CAP PO SCH ×2 (09:11→20:49)
[2019-12-26] MEDS: MULTIVITAMIN TAB PO SCH (09:11)
[2019-12-26] MEDS ORDERED: MAGNESIUM SULFATE / D5W 1 GM/100 ML BAG IV ONE (09:38)
--- NOTE | 2019-12-26 09:38 | Hospitalist Progress Note ---
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 Normal appendix. Scattered small bowel air-fluid levels may reflect enteritis or ileus within the reported clinical setting of acute nausea and vomiting. Moderate fecal retention. -COVID 19 screening negative -Started empirically on cefepime and then also Flagyl for anaerobic coverage for possible enteritis. Urine analysis normal. Continue IV antibiotics, follow the admission blood cultures -continue Neutropenic precautions, follow the cell counts -mildly improved WBC on 12/25/2019 on 12/26/2019, the cultures so far are not growth any particular microbe, continue empiric IV antibiotics for now (3) Hypomagnesemia: -admission serum magnesium of 1.5 in setting of GI losses, poor appetite, was given replacement with 2 grams IV mag -serum magnesium on 2 on 12/24/2019 -patient has been getting IV and oral magnesium when serum magnesium 1.8 Hypokalemia -patient receiving IV and oral potassium Nausea and Vomiting, Intractable -on anti-emetics, continue as prn Phenergan (4) Chest pressure: -Developed after last radiation treatment when outpatient. Describes as a burning pain similar to acid reflux -negative troponins -12/24/2019 assessment: patient denies acute chest pain and describes that the midsternal chest where she has marked "X" for history of radiation treatments is more of a belching feeling -echocardiogram does not find evidence of pericarditis (5) Constipation: -Moderate fecal retention on admission CT abd/pelvis. No evidence of bowel obstruction -on bowel regimen (6) Small cell lung cancer in adult: -Established with Dr. Washington Hebert last month, currently undergoing chemo treatment with cisplatin etoposide as well as radiation -Dr. Hebert discussed he will like to resume radiation therapy starting on as WBC trending up (7) CKD (chronic kidney disease), stage III: Acute Kidney disease on Chronic Kidney Disease stage 3 -admission creatinine of 1.2 in setting of some dehydration -downtrended to under 1 on 12/24/2019 after treatment Hyponatremia -serum sodium of 130 on admission likely from dehydration or poor oral intake, vomiting -serum sodium 137 on 12/25/2019 DVT Ppx: SCDs for now in setting of thrombocytopenia Code status: FULL PCP: Valeriy Admission and Anticipated Discharge Date Admission Date: December 23, 2019 Subjective Patient returns from radiation therapy. She has been having nausea and vomiting and prefers to try the clear liquid diet. no abdominal pain. no chest pain. no shortness of breath. on room air. no dizziness. no headache. Patient agrees to continue electrolyte repletion from GI losses from vomiting Review of Systems Review of Systems: All systems reviewed & are unremarkable except as noted in Subjective Physical Exam Constitutional: cooperative Eyes: PERRL, conjunctivae normal, anicteric sclerae ENMT: external ear and nose normal, oropharynx normal Neck: trachea midline, no thyromegaly normal visual inspection Respiratory: normal respiratory effort, lungs clear to auscultation Cardiovascular: Rate/Rhythm: regular rate Gastrointestinal (Abdomen): normal bowel sounds, soft, nontender, no hepatosplenomegaly Musculoskeletal: Head/Neck/Chest: normocephalic Neurologic: moves all extremities Psychiatric: A+Ox3, euthymic affect Results & Data Results & Data ([facility]) Vital Signs (Past 12 Hours) Vital Signs Temp Pulse Pulse Resp BP BP Pulse Ox 12/26/19 07:52 36.6 C 101 H 17 108/76 94 12/26/19 05:14 99 H 12/26/19 03:10 36.4 C L 95 H 18 131/81 95 12/26/19 00:02 36.9 C 90 18 126/83 96
[2019-12-26] MEDS ORDERED: POTASSIUM CHLORIDE PWD 20 MEQ PACK PO ONE (11:00)
[2019-12-26] MEDS: MAGNESIUM OXIDE 400 MG TAB PO SCH (11:04)
[2019-12-26] MEDS: POTASSIUM CHLORIDE PWD 20 MEQ PACK PO SCH ×2 (11:18→17:36)
[2019-12-26] MEDS ORDERED: POTASSIUM CHLORIDE 20 MEQ TABCR PO SCH (17:00)
[2019-12-26] MEDS: ARIPiprazole 10 MG TAB PO SCH (20:27)
[2019-12-27] MEDS: PROMETHAZINE HCL 12.5 MG in SODIUM CHLORIDE 0.9% 50 ML IV PRN ×5 (01:16→22:10)
[2019-12-27] MEDS: HEPARIN 100 UNIT/ML 5ML FLUSH FLUSH PRN ×2 (01:40→06:11)
[2019-12-27 06:28] LABS: Hematocrit (blood only) 31.5 % (37-47); Hemoglobin 10.5 g/dL (12.0-16.0); Mean Corpuscular Hemoglobin 28.7 pg (25-34); Mean Corpuscular Hgb Conc 33.3 g/dL (32-36); Mean Corpuscular Volume 86.1 fL (80-100); Nucleated RBC # (auto) 0.02 K/uL (0-0); Nucleated RBC % (auto) 0.7 %; Platelet Count 178 K/uL (130-400); RDW Standard Deviation 46.6 fL (36.4-46.3); Red Blood Count 3.66 M/uL (4.2-5.4); White Blood Count 3.36 K/uL (4.8-10.8)
[2019-12-27 06:57] LABS: BUN Creatinine Ratio 8.4 (10-20); Calcium 8.2 mg/dl (8.5-10.1); Creatinine Clr Calc Pharmacy 98.9 ml/min; Est GFR (African American) 108.7; Est GFR (Non-African American) 93.8; Magnesium 1.8 mg/dl (1.8-2.4); Potassium 3.4 mmol/L (3.5-5.1)
[2019-12-27 07:40] LABS: Basophils # (auto) 0.02 K/uL (0-0.2); Basophils % (auto) 0.6 %; Eosinophils # (auto) 0.04 K/uL (0-0.5); Eosinophils % (auto) 1.2 %; Immature Granulocytes # (auto) 0.21 K/uL (0.00-0.02); Immature Granulocytes % (auto) 6.3 %; Lymphocytes % (auto) 26.8 %; Monocytes # (auto) 0.93 K/uL (0.11-0.59); Monocytes % (auto) 27.7 %; Neutrophils # (auto) 1.26 K/uL (1.4-6.5); Neutrophils % (auto) 37.4 %; Tear Drop Cells 1+; Toxic Vacuolation 2+
[2019-12-27] MEDS: UMECLIDINIUM/VILANTEROL 62.5/25MCG 7 PUFFS/INHALER INH SCH (07:46)
[2019-12-27] MEDS: DOCUSATE SODIUM 100 MG CAP PO SCH ×2 (07:48→20:22)
[2019-12-27] MEDS: MULTIVITAMIN TAB PO SCH (07:48)
[2019-12-27] MEDS: NICOTINE 14 MG/24 HR PATCH TD SCH (07:48)
[2019-12-27] MEDS: DULOXETINE HCL 60 MG CAP PO SCH (07:48)
[2019-12-27] MEDS: POTASSIUM CHLORIDE PWD 20 MEQ PACK PO SCH ×2 (07:49→16:16)
[2019-12-27] MEDS: MAGNESIUM OXIDE 400 MG TAB PO SCH (07:49)
[2019-12-27] MEDS ORDERED: MAGNESIUM SULFATE / D5W 1 GM/100 ML BAG IV ONE (08:00)
[2019-12-27] MEDS ORDERED: POTASSIUM CHLORIDE / WTR 10 MEQ/100 ML PLCT IV ONE (08:00)
[2019-12-27] MEDS: Magic Swizzle w/Glycerin 240mL MT SCH ×4 (08:53→20:22)
--- NOTE | 2019-12-27 08:56 | Hospitalist Progress Note ---
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 Normal appendix. Scattered small bowel air-fluid levels may reflect enteritis or ileus within the reported clinical setting of acute nausea and vomiting. Moderate fecal retention. -COVID 19 screening negative -Started empirically on cefepime and then also Flagyl for anaerobic coverage for possible enteritis. Urine analysis normal. Continue IV antibiotics, follow the admission blood cultures -continue Neutropenic precautions, follow the cell counts -mildly improved WBC on 12/25/2019 on 12/26/2019, the cultures so far are not growth any particular microbe, IV antibiotics have been stopped since evening of 12/25/2019 because no source of infection identified at this time. monitor body temperatures off antibiotics for now -WBC on 12/27/2019 continues to be improving (3) Hypomagnesemia: -admission serum magnesium of 1.5 in setting of GI losses, poor appetite, was given replacement with 2 grams IV mag -serum magnesium on 2 on 12/24/2019 -patient has been getting IV and oral magnesium when serum magnesium 1.8 Hypokalemia -patient receiving IV and oral potassium Nausea and Vomiting, Intractable -on anti-emetics, continue as prn Phenergan (4) Chest pressure: -Developed after last radiation treatment when outpatient. Describes as a burning pain similar to acid reflux -negative troponins -12/24/2019 assessment: patient denies acute chest pain and describes that the midsternal chest where she has marked "X" for history of radiation treatments is more of a belching feeling -12/24/2019 echocardiogram does not find evidence of pericarditis (5) Constipation: -Moderate fecal retention on admission CT abd/pelvis. No evidence of bowel obstruction -on bowel regimen (6) Small cell lung cancer in adult: -Established with Dr. Washington Hebert last month, currently undergoing chemo treatment with cisplatin etoposide as well as radiation -Dr. Hebert discussed resuming radiation therapy starting on 12/25/2019 as WBC trending up and patient received inpatient radiation on 12/25/2019 and 12/26/2019 (7) CKD (chronic kidney disease), stage III: Acute Kidney disease on Chronic Kidney Disease stage 3 -admission creatinine of 1.2 in setting of some dehydration -downtrended to under 1 on 12/24/2019 after treatment Hyponatremia -serum sodium of 130 on admission likely from dehydration or poor oral intake, vomiting -serum sodium 137 on 12/25/2019 DVT Ppx: SCDs for now in setting of thrombocytopenia Code status: FULL PCP: Valeriy Admission and Anticipated Discharge Date Admission Date: December 23, 2019 Subjective Patient on anti-emetics prn but continues to have episodes of nausea and vomiting. Patient's electrolytes are somewhat improved but it seems that she has trouble with oral supplements and more of the potassium repletions needed to be shifted to IV mode of delivery. no fevers. no abdominal pain. no chest pain. no shortness of breath. breathing on room air Review of Systems Review of Systems: All systems reviewed & are unremarkable except as noted in Subjective Physical Exam Constitutional: cooperative Eyes: PERRL, conjunctivae normal, anicteric sclerae ENMT: external ear and nose normal, oropharynx normal Neck: trachea midline, no thyromegaly normal visual inspection Respiratory: normal respiratory effort, lungs clear to auscultation Cardiovascular: Rate/Rhythm: regular rate Gastrointestinal (Abdomen): normal bowel sounds, soft, nontender, no hepatosplenomegaly Musculoskeletal: Head/Neck/Chest: normocephalic Neurologic: moves all extremities Psychiatric: A+Ox3, euthymic affect Results & Data Results & Data ([facility]) Vital Signs (Past 12 Hours) Vital Signs Temp Pulse Pulse Resp BP Pulse Ox 12/27/19 08:06 36.6 C 59 L 17 152/61 H 99 12/27/19 02:51 37.0 C 97 H 19 125/85 92 12/26/19 22:50 37.3 C 100 H 18 103/71 94 12/26/19 22:30 109 H
[2019-12-27] MEDS: NSS + 20MEQ KCL 20 MEQ/1,000 ML BAG IV SCH ×2 (10:22→23:04)
[2019-12-27 16:54] LABS: BUN Creatinine Ratio 9.4 (10-20); Calcium 8.1 mg/dl (8.5-10.1); Creatinine Clr Calc Pharmacy 100.5 ml/min; Est GFR (African American) 109.3; Est GFR (Non-African American) 94.3; Potassium 3.2 mmol/L (3.5-5.1)
[2019-12-27] MEDS: ARIPiprazole 10 MG TAB PO SCH (20:22)
[2019-12-28] MEDS: PROMETHAZINE HCL 12.5 MG in SODIUM CHLORIDE 0.9% 50 ML IV PRN ×2 (03:54→07:53)
[2019-12-28] MEDS: Magic Swizzle w/Glycerin 240mL MT SCH (07:56)
[2019-12-28] MEDS: NICOTINE 14 MG/24 HR PATCH TD SCH (07:56)
[2019-12-28] MEDS: UMECLIDINIUM/VILANTEROL 62.5/25MCG 7 PUFFS/INHALER INH SCH (07:57)
[2019-12-28] MEDS: DOCUSATE SODIUM 100 MG CAP PO SCH (07:57)
[2019-12-28] MEDS: MAGNESIUM OXIDE 400 MG TAB PO SCH (08:00)
[2019-12-28] MEDS: MULTIVITAMIN TAB PO SCH (08:01)
[2019-12-28] MEDS: POTASSIUM CHLORIDE PWD 20 MEQ PACK PO SCH (08:01)
[2019-12-28] MEDS: DULOXETINE HCL 60 MG CAP PO SCH (08:01)
[2019-12-28 08:28] LABS: Hematocrit (blood only) 31.4 % (37-47); Hemoglobin 10.4 g/dL (12.0-16.0); Mean Corpuscular Hemoglobin 28.4 pg (25-34); Mean Corpuscular Hgb Conc 33.1 g/dL (32-36); Mean Corpuscular Volume 85.8 fL (80-100); Mean Platelet Volume 9.5 fL (7.4-10.4); Nucleated RBC # (auto) 0.02 K/uL (0-0); Nucleated RBC % (auto) 0.6 %; Platelet Count 201 K/uL (130-400); RDW Coefficient of Variation 15.2 % (11.5-14.5); RDW Standard Deviation 47.2 fL (36.4-46.3); Red Blood Count 3.66 M/uL (4.2-5.4); White Blood Count 4.08 K/uL (4.8-10.8)
[2019-12-28 08:36] LABS: BUN Creatinine Ratio 7.4 (10-20); Calcium 8.8 mg/dl (8.5-10.1); Creatinine Clr Calc Pharmacy 98.1 ml/min; Est GFR (African American) 108.2; Est GFR (Non-African American) 93.4; Magnesium 1.8 mg/dl (1.8-2.4); Potassium 3.5 mmol/L (3.5-5.1)
[2019-12-28] MEDS ORDERED: MAGNESIUM SULFATE / D5W 1 GM/100 ML BAG IV ONE (08:39)
[2019-12-28 08:50] LABS: Basophils # (auto) 0.04 K/uL (0-0.2); Eosinophils # (auto) 0.03 K/uL (0-0.5); Eosinophils % (auto) 0.7 %; Immature Granulocytes # (auto) 0.28 K/uL (0.00-0.02); Immature Granulocytes % (auto) 6.9 %; Lymphocytes # (auto) 0.83 K/uL (1.2-3.4); Lymphocytes % (auto) 20.3 %; Monocytes # (auto) 0.93 K/uL (0.11-0.59); Monocytes % (auto) 22.8 %; Neutrophils # (auto) 1.97 K/uL (1.4-6.5); Neutrophils % (auto) 48.3 %; Toxic Granulation 3+
--- NOTE | 2019-12-28 09:21 | Hospitalist Progress Note ---
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 Normal appendix. Scattered small bowel air-fluid levels may reflect enteritis or ileus within the reported clinical setting of acute nausea and vomiting. Moderate fecal retention. -COVID 19 screening negative -Started empirically on cefepime and then also Flagyl for anaerobic coverage for possible enteritis. Urine analysis normal. Continue IV antibiotics, follow the admission blood cultures -continue Neutropenic precautions, follow the cell counts -mildly improved WBC on 12/25/2019 on 12/26/2019, the cultures so far are not growth any particular microbe, IV antibiotics have been stopped since evening of 12/25/2019 because no source of infection identified at this time. monitored body temperatures off antibiotics and no fevers to date since -WBC on 12/27/2019 continues to be improving -[place] [address] of potassium 40 meq BID and magnesium 400 mg daily for 15 day supply, docusate 100 mg twice a day for 30 days to prevent constipation Patient has anti-emetic medication at home including compazine -Patient has upcoming scheduled appointments with oncology and primary care for repeat blood work. Pertinent improved labs as of 12/28/2019 discharge day is WBC of 4,000; serum potassium 3.5 and serum magnesium 1.8 12/30/2019 8:00 AM Provider Anibal Hebert MD 12/30/2019 8:30 AM Provider Chair 4 Hem Onc [facility] Department Hematology/Oncology Treatment, [place] 12/31/2019 9:00 AM Provider Chair 7 Hem Onc [facility] Department Hematology/Oncology Treatment, [place] 01/01/2020 9:00 AM Provider Saud Khoury MD [facility] 01/01/2020 11:15 AM Provider Chair 6 Hem Onc [facility] Department Hematology /Oncology Treatment, [place] (3) Hypomagnesemia: -admission serum magnesium of 1.5 in setting of GI losses, poor appetite -treated inpatient with IV and oral magnesium -patient to get IV magnesium x 1 bag on 12/28/2019 before going home today Hypokalemia -serum potassium went as low as 3 during this admission -treated inpatient with IV and oral Nausea and Vomiting, Intractable -was treated with anti-emetics including prn Phenergan IV while in hospital -improving as of 12/28/2019 and patient feels ready for discharge (4) Chest pressure: -Developed after last radiation treatment when outpatient. Describes as a burning pain similar to acid reflux -negative troponins -12/24/2019 assessment: patient denies acute chest pain and describes that the midsternal chest where she has marked "X" for history of radiation treatments is more of a belching feeling -12/24/2019 echocardiogram does not find evidence of pericarditis (5) Constipation: -Moderate fecal retention on admission CT abd/pelvis. No evidence of bowel obstruction -on bowel regimen -colace prescription on discharge (6) Small cell lung cancer in adult: -Established with Dr. Washington Hebert last month, currently undergoing chemo treatment with cisplatin etoposide as well as radiation -Dr. Hebert discussed resuming radiation therapy starting on 12/25/2019 as WBC trending up and patient received inpatient radiation on 12/25/2019 and 12/26/2019 (7) CKD (chronic kidney disease), stage III: Acute Kidney disease on Chronic Kidney Disease stage 3 -admission creatinine of 1.2 in setting of some dehydration -downtrended to under 1 on 12/24/2019 after treatment Hyponatremia -serum sodium of 130 on admission likely from dehydration or poor oral intake, vomiting -resolved on this admission -serum sodium 138 on 12/28/2019 Code status: FULL Admission and Anticipated Discharge Date Admission Date: December 23, 2019 Subjective Patient feels that nausea symptoms have improved. she reports tolerating oral intake. with her electrolytes improved overall, patient feels ready to go home. WBC of 4,000 is vast improvement compared to neutropenia on beginning of hospital. no fevers. no acute pain anywhere. discharge plans and instructions discussed with the patient Review of Systems Review of Systems: All systems reviewed & are unremarkable except as noted in Subjective Physical Exam Constitutional: cooperative Eyes: PERRL, conjunctivae normal, anicteric sclerae ENMT: external ear and nose normal, oropharynx normal Neck: trachea midline, no thyromegaly normal visual inspection Respiratory: normal respiratory effort, lungs clear to auscultation Cardiovascular: Rate/Rhythm: regular rate Chest (Breasts): Chest: + vascular access device or port Gastrointestinal (Abdomen): normal bowel sounds, soft, nontender, no hepatosplenomegaly Musculoskeletal: Head/Neck/Chest: normocephalic Neurologic: moves all extremities Psychiatric: A+Ox3, euthymic affect Results & Data Results & Data ([facility]) Vital Signs (Past 12 Hours) Vital Signs Temp Pulse Pulse Resp BP Pulse Ox 12/28/19 07:18 37.0 C 98 H 18 133/89 95 12/28/19 07:09 100 H 12/28/19 05:19 107 H 12/28/19 03:00 36.9 C 106 H 20 133/85 95 12/27/19 22:00 36.9 C 99 H 20 109/80 93
--- NOTE | 2019-12-28 09:29 | Discharge Summary ---
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 Had 4 episodes of emesis since yesterday with associated fever and chills. Endorses chronic cough that is unchanged. Denies headache or URI symptoms. Developed some burning of the chest following radiation yesterday that worsened overnight. No wheezing or sputum production. No abdominal pain, dysuria or diarrhea. Last bowel movement was 2 days ago. Established with Dr. Hebert of medical oncology in November and has completed first cycle of combined chemotherapy cisplatin etoposide along with radiation treatment. Is planning to start second cycle of chemo next week. History of SQ port placement by Dr. Huynh on 12/03/19. Principal Diagnosis Neutropenia with fever Hypomagnesemia Hypokalemia Small cell lung cancer in adult Nausea and Vomiting (Intractable) CKD (chronic kidney disease), stage III Discharge Exam Constitutional cooperative Eyes PERRL, conjunctivae normal, anicteric sclerae ENMT external ear and nose normal, oropharynx normal Neck trachea midline, no thyromegaly normal visual inspection Respiratory normal respiratory effort, lungs clear to auscultation Cardiovascular Rate/Rhythm: regular rate Chest (Breasts) Chest: + vascular access device or port Gastrointestinal (Abdomen) normal bowel sounds, soft, nontender, no hepatosplenomegaly Musculoskeletal Head/Neck/Chest: normocephalic Neurologic moves all extremities Psychiatric A+Ox3, euthymic affect Discharge Data Allergies Allergy/AdvReac Type Severity Reaction Status Date / Time mushroom Allergy Severe anaphylaxis Verified 12/23/19 17:07 Penicillins Allergy Severe anaphylaxis, Verified 12/23/19 17:07 facial & throat swelling acetazolamide Allergy Unknown rash, hives Verified 12/23/19 17:07 mold Allergy Unknown unknown Verified 12/23/19 17:07 reaction sumatriptan AdvReac Unknown flushing, Verified 12/23/19 17:07 heart racing Consultations 12/23/19 16:59 ED Decision to Admit Stat Ordered Studies 12/23/19 14:37 CT abd pelvis IV con only Stat CT angio chest PE protocol Stat Hospital Course (1) Sepsis: -appears to have been ruled out (2) Neutropenia with fever: This is a 64yo F with 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 Normal appendix. Scattered small bowel air-fluid levels may reflect enteritis or ileus within the reported clinical setting of acute nausea and vomiting. Moderate fecal retention. -COVID 19 screening negative -Started empirically on cefepime and then also Flagyl for anaerobic coverage for possible enteritis. Urine analysis normal. Continue IV antibiotics, follow the admission blood cultures -continue Neutropenic precautions, follow the cell counts -mildly improved WBC on 12/25/2019 on 12/26/2019, the cultures so far are not growth any particular microbe, IV antibiotics have been stopped since evening of 12/25/2019 because no source of infection identified at this time. monitored body temperatures off antibiotics and no fevers to date since -WBC on 12/27/2019 continues to be improving -[place] [id number] of potassium 40 meq BID and magnesium 400 mg daily for 15 day supply, docusate 100 mg twice a day for 30 days to prevent constipation Patient has anti-emetic medication at home including compazine -Patient has upcoming scheduled appointments with oncology and primary care for repeat blood work. Pertinent improved labs as of 12/28/2019 discharge day is WBC of 4,000; serum potassium 3.5 and serum magnesium 1.8 12/30/2019 8:00 AM Provider Anibal Hebert MD 12/30/2019 8:30 AM Provider Chair 4 Hem Onc [facility] Department Hematology/Oncology Treatment, [place] 12/31/2019 9:00 AM Provider Chair 7 Hem Onc [facility] Department Hematology/Oncology Treatment, [place] 01/01/2020 9:00 AM Provider Saud Khoury MD [facility] 01/01/2020 11:15 AM Provider Chair 6 Hem Onc [facility] Department Hematology/Oncology Treatment, [place] (3) Hypomagnesemia: -admission serum magnesium of 1.5 in setting of GI losses, poor appetite -treated inpatient with IV and oral magnesium -patient to get IV magnesium x 1 bag on 12/28/2019 before going home today Hypokalemia -serum potassium went as low as 3 during this admission -treated inpatient with IV and oral Nausea and Vomiting, Intractable -was treated with anti-emetics including prn Phenergan IV while in hospital -improving as of 12/28/2019 and patient feels ready for discharge (4) Chest pressure: -Developed after last radiation treatment when outpatient. Describes as a burning pain similar to acid reflux -negative troponins -12/24/2019 assessment: patient denies acute chest pain and describes that the midsternal chest where she has marked "X" for history of radiation treatments is more of a belching feeling -12/24/2019 echocardiogram does not find evidence of pericarditis (5) Constipation: -Moderate fecal retention on admission CT abd/pelvis. No evidence of bowel obstruction -on bowel regimen -colace prescription on discharge (6) Small cell lung cancer in adult: -Established with Dr. [place] Hebert last month, currently undergoing chemo treatment with cisplatin etoposide as well as radiation -Dr. Hebert discussed resuming radiation therapy starting on 12/25/2019 as WBC trending up and patient received inpatient radiation on 12/25/2019 and 12/26/2019 (7) CKD (chronic kidney disease), stage III: Acute Kidney disease on Chronic Kidney Disease stage 3 -admission creatinine of 1.2 in setting of some dehydration -downtrended to under 1 on 12/24/2019 after treatment Hyponatremia -serum sodium of 130 on admission likely from dehydration or poor oral intake, vomiting -resolved on this admission -serum sodium 138 on 12/28/2019 Code status: FULL Total Time Total Time Spent Total Time Spent (In Minutes): 40 minutes Total Time Includes: Examination of the Patient, Discharge Planning, Medication Reconciliation and Communication With Other Providers Discharge Plan Discharge Items Patient Disposition: Home - Self-Care Reason For Visit: SEPSIS, NEUTROPENIC FEVER Discharge Diagnosis: Neutropenia with fever Hypomagnesemia Hypokalemia Small cell lung cancer in adult Nausea and Vomiting (Intractable) CKD (chronic kidney disease), stage III Condition on Discharge: Fair Activity: Resume your previous activity Non-emergency contact: Primary Care Provider, Specialist and Oncologist Call non-emergency contact if: you have any medication questions Follow-up/Referrals: Rosa Crooks DO [Primary Care Provider] - Diet: Full liquid Diet Comment: advance diet as tolerated Addtl Attending Provider Instructions: medications sent to [address] [id number] of potassium 40 meq BID and magnesium 400 mg daily for 15 day supply, docusate 100 mg twice a day for 30 days to prevent constipation Patient has anti-emetic medication at home including compazine Patient has upcoming scheduled appointments with oncology and primary care for repeat blood work. Pertinent improved labs as of 12/28/2019 discharge day is WBC of 4,000; serum potassium 3.5 and serum magnesium 1.8 12/30/2019 8:00 AM Provider Anibal Hebert MD 12/30/2019 8:30 AM Provider Chair 4 Hem Onc [facility] Department Hematol ogy/Oncology Treatment, [place] 12/31/2019 9:00 AM Provider Chair 7 Hem Onc [facility] Department Hematology/Oncology Treatment, [place] 01/01/2020 9:00 AM Provider Saud Khoury MD [facility] 01/01/2020 11:15 AM Provider Chair 6 Hem Onc [facility] Department Hematology/Oncology Treatment, [place] Pending Studies at Discharge: No Stand-Alone Forms: My [facility] [employer], Smoking Cessation Medications and DC Order Prescriptions: New potassium chloride 20 mEq Packet 40 meq PO [id number] 15 Days Qty: 30 RF: 0 magnesium oxide 400 mg (241.3 mg magnesium) Tablet 400 mg PO QAM 15 Days Qty: 15 RF: 0 docusate sodium 100 mg Capsule 100 mg PO BID 30 Days Qty: 60 RF: 0 Continued aripiprazole [Abilify] 10 mg tablet 10 mg PO HS RF: 0 albuterol sulfate 90 mcg/actuation HFA aerosol inhaler 2 puff INH Q6H PRN (Reason: Shortness Of Breath Or Wheezing) Qty: 18 RF: 3 Anoro Ellipta 62.5-25 mcg/actuation blister with device 1 puffs INH DAILY Qty: 60 RF: 3 nicotine 14 mg/24 hr patch 24 hour 1 patch TD DAILY Qty: 28 RF: 2 duloxetine 60 mg capsule,delayed release(DR/EC) 60 mg PO QAM RF: 0 ibuprofen [Advil] 200 mg Tablet 400 mg PO Q12H PRN (Reason: Pain) RF: 0 multivitamin Tablet 1 tab PO QAM RF: 0 ondansetron HCl [Zofran] 8 mg tablet 8 mg PO Q8 PRN (Reason: Nausea) RF: 0 hydroxyzine HCl 50 mg tablet 50 mg PO TID PRN (Reason: Anxiety) RF: 0 prochlorperazine maleate [Compazine] 10 mg tablet 10 mg PO Q6 PRN (Reason: Nausea) RF: 0 dexamethasone [Decadron] 4 mg tablet 4 mg PO UD RF: 0 melatonin 5 mg Tablet 5 mg PO HS PRN (Reason: Sleep) RF: 0 Magic Swizzle 15 ml PO ACHS RF: 0 Discontinued hydrocodone-homatropine 5-1.5 mg/5 mL syrup 2.5 ml PO Q6H PRN (Reason: cough) Qty: 100 RF: 0 Discharge Orders: Discharge Order (Routine); Ordered 12/28/19 Ordered By: Jack Stokes Admission Data Admit Date/Time: 12/23/19 19:01 Attending Provider: Jack Stokes Admit Provider: Shefali Acharya Primary Care Provider: Rosa Crooks Other Providers: Shefali Acharya ; [facility]
== END 2019-12-28 10:52 | disposition home health service (06) | DRG 809 ==
LOC: ED 14:04 → 2W 19:01 → SUATTDRO 19:01 → 2W 19:44 → 2N 12-27 18:01

== ENCOUNTER 2020-01-03 20:48 | Inpatient (IN) ==
[2020-01-03] MEDS ORDERED: ONDANSETRON INJ 2 MG/ML 2 ML VIAL IV STA (21:08)
[2020-01-03] MEDS ORDERED: SODIUM CHLORIDE 0.9% 1000ML 500 ML IV ONE ×2 (21:08→23:10)
[2020-01-03] MEDS ORDERED: OPTIRAY 320 125ml IV ONE (21:13)
[2020-01-03 21:16] LABS: Hematocrit (blood only) 36.8 % (37-47); Hemoglobin 12.2 g/dL (12.0-16.0); Immature Granulocytes # (auto) 0.02 K/uL (0.00-0.02); Immature Granulocytes % (auto) 0.4 %; Lymphocytes # (auto) 0.52 K/uL (1.2-3.4); Lymphocytes % (auto) 9.6 %; Mean Corpuscular Hemoglobin 28.3 pg (25-34); Mean Corpuscular Hgb Conc 33.2 g/dL (32-36); Mean Corpuscular Volume 85.4 fL (80-100); Mean Platelet Volume 9.2 fL (7.4-10.4); Monocytes # (auto) 0.01 K/uL (0.11-0.59); Monocytes % (auto) 0.2 %; Neutrophils # (auto) 4.88 K/uL (1.4-6.5); Neutrophils % (auto) 89.8 %; Platelet Count 277 K/uL (130-400); RDW Coefficient of Variation 15.2 % (11.5-14.5); Red Blood Count 4.31 M/uL (4.2-5.4); White Blood Count 5.43 K/uL (4.8-10.8)
--- NOTE | 2020-01-03 21:16 | Emergency Department Note ---
Impression & Plan Expressive aphasia, Hypomagnesemia, Vomiting, TIA (transient ischemic attack), Hypokalemia ED Provider Note NAME: BREN BELTRAN AGE: 64 SEX: F : 1955 ARRIVES VIA: Ambulance INFORMANT: [Patient][ems] ED PROVIDER(S): [Cruz Weiss MD] The patient was initially seen by me at 2100 CHIEF COMPLAINT: Altered mental status HISTORY OF PRESENT ILLNESS: The patient is a 64-year-old female who presents with around 2 hours of symptoms. The patient states that she is on chemotherapy for lung cancer. She is also receiving radiation therapy. Her last chemotherapy was 2 days ago. The patient states that today, she felt nauseated all day. Around 2 hours ago or so, she began vomiting. She could not speak. Her tried to help her but she was weak and fell. EMS arrived. The patient did notice an improvement in her ability to speak. She now just has some slurred speech. At no point, did she have weakness to one arm or one leg. She does feel short of breath but this is from her lung cancer. There has been no chest pain or abdominal pain. No diarrhea. The patient had a headache earlier in the day, she does not have one now. REVIEW OF SYSTEMS: See HPI for pertinent positives and negatives. A total of ten systems were reviewed and were otherwise negative. PMHx/PSHx: See Below SOCIAL HISTORY: See Below. PHYSICAL EXAM: GENERAL: Patient is in no acute distress. HEENT: No acute trauma, normocephalic atraumatic, mucous membranes dry, no nasal congestion, no scleral icterus. NECK: No stridor, no adenopathy, no meningismus, trachea is midline. LUNGS: Clear to auscultation bilaterally when listening anterior, no wheeze, no rhonchi, breath sounds equal. HEART: Without murmurs gallops or rubs, regular rate and rhythm. ABDOMEN: Soft, nontender, bowel sounds positive, no hernias, no peritonitis. EXTREMITIES: No cyanosis or edema, full range of motion of all the joints without pain or difficulty, no signs for acute trauma. NEUROLOGIC: Awake and alert, no acute motor or sensory deficits, no focal weakness. No cerebellar deficits, no pronator drift. She does have some slight slurred speech but there is no facial droop. SKIN: No rash, no jaundice, no diaphoresis. DIFFERENTIAL DIAGNOSIS: Infection, dehydration, metabolic abnormality, hypo/hyperglycemia, chemotherapy complication, stroke, intracranial bleeding, TIA, electrolyte disturbance, anemia, hypoxia, cardiac sources, intracerebral event, toxicologic, neurologic, as well as other pathologies. EMERGENCY DEPARTMENT COURSE/PROCEDURES: ECG: Indication was stroke. The ECG shows a sinus tachycardia with a rate of 113. There is no ST elevation, no PVCs. The QTc is 460. Continuous Cardiac Monitoring: An order was placed for continuous cardiac monitoring. The monitor shows a rate of 106 with sinus tachycardia. Critical Care Note: I have personally spent greater than 52 minutes of critical care time in the direct management of this patient. This includes bedside care, interpretation of diagnostic studies, and testing, discussion with consultants, patient, and family members, and other required patient management activities. This 52 minutes is in excess of all separately billable procedures. MEDICAL DECISION MAKING: There is no leukocytosis or concerning anemia. There is a normal platelet count. No coagulopathy. Potassium and magnesium were slightly low. There was some renal insufficiency/dehydration noted. No worrisome liver enzyme elevation. ECG showed a sinus tachycardia, no acute ischemia. Cardiac enzyme testing x1 was not consistent with acute cardiac injury. Urinalysis does not show evidence for infection, contamination was seen. Chest film does not show pneumonia or CHF. Brain CT does not show any acute bleed or mass-effect. CT angiogram of the head and neck were performed, there was some narrowing of the neck arteries but no occlusion. No evidence for occlusion within the brain. The patient received IV saline for hydration. She was given IV magnesium for the low magnesium value, she was given IV potassium and IV Zofran. She is currently resting comfortably. A stroke alert was called after my initial assessment. She was aggressively managed. Patient was seen by the [facility]. The patient does not meet criteria for TPA as she is back to her baseline. She was felt to have suffered a TIA. The patient is being hospitalized for further work-up. I did speak to the patient at length about her findings, I spoke with case management. The on-call hospitalist has been consulted. Past Med/Surg History Medical History Acute kidney injury Acute shoulder pain Now a constant ache - no prescription meds needed Anxiety Chronic venous insufficiency follows with vascular (Dr. Carlson) CKD (chronic kidney disease), stage III COPD with emphysema Dentalgia Depression Hypertension Kidney stones LAD (lymphadenopathy), mediastinal Major depressive disorder, recurrent episode with anxious distress Daughter from OD in 2016 Migraine Nausea & vomiting Neutropenia with fever Nicotine dependence Polysubstance overdose Hx of 2017 Pulmonary nodule "7 mm RUL nodule, stable 09/25/15 - 09/16/16; repeat 6 mos" Surgical History History of bronchoscopy 10/30/2019 - with EBUS History of cataract surgery 2004 - bilateral History of section 1991 History of colonoscopy unsuccessful (poor bowel prep) History of cystoscopy 2007 - with stent History of dental surgery 02/2019 - Full upper teeth extracted S/P arthroscopy of left knee S/P arthroscopy of right knee Family History Grandmother (Maternal) , Passed in 80's of metastatic cancer (unknown primary) No problems noted. Mother , Passed age 93 of natural causes No problems noted. Father , Passed age 97 of natural causes No problems noted. Brother No problems noted. Daughter , Passed age 24 from Over Dose No problems noted. 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 [employer] Feels Safe at Home: Yes Childhood Exposure to Second-Hand Smoke: No caffeine: Yes (2 cups of coffee/day ) during the past year weight has: remained stable Dental Care, Regularly: Yes Assistive Devices: None Allergies Allergies Allergy/AdvReac Type Severity Reaction Status Date / Time mushroom Allergy Severe anaphylaxis Verified 12/29/19 08:26 Penicillins Allergy Severe anaphylaxis, Verified 12/29/19 08:26 facial & throat swelling acetazolamide Allergy Unknown rash, hives Verified 12/29/19 08:26 mold Allergy Unknown unknown Verified 12/29/19 08:26 reaction sumatriptan AdvReac Unknown flushing, Verified 12/29/19 08:26 heart racing Home Meds Home Medications Medication Instructions Recorded Confirmed aripiprazole 10 mg tablet 10 mg PO HS 09/18/19 01/03/20 ibuprofen [Advil] 400 mg PO Q12H PRN 10/13/19 01/03/20 multivitamin 1 tab PO QAM 11/08/19 01/03/20 hydroxyzine HCl 50 mg PO UD PRN 12/23/19 01/03/20 melatonin 5 mg PO HS PRN 12/23/19 01/03/20 ondansetron HCl [Zofran] 8 mg PO Q8 PRN 12/23/19 01/03/20 prochlorperazine maleate 10 mg PO Q6 PRN 12/23/19 01/03/20 [Compazine] dexamethasone 4 mg tablet 4 mg PO UD 12/29/19 01/03/20 Magic Swizzle 15 ml PO ACHS 01/03/20 01/03/20 duloxetine 60 mg PO DAILY 01/03/20 01/03/20 levofloxacin [Levaquin] 500 mg PO DAILY 01/03/20 01/03/20 olanzapine [Zyprexa] 10 mg PO UD 01/03/20 01/03/20 oxycodone-acetaminophen 1 tab PO Q6 PRN 01/03/20 01/03/20 Previous Rx's Medication Instructions Recorded albuterol sulfate 90 mcg/actuation 2 puff INH Q6H PRN #18 gm 10/23/19 aerosol inhaler umeclidinium 62.5 mcg-vilanterol 1 puffs INH DAILY #60 ea 10/23/19 25 mcg/actuation powdr for inhalation nicotine 14 mg/24 hr daily 1 patch TD DAILY #28 ea 11/12/19 transdermal patch docusate sodium 100 mg PO BID 30 Days #60 cap 12/28/19 magnesium oxide 400 mg PO QAM 15 Days #15 tab 12/28/19 potassium chloride 40 meq PO BID17 15 Days #30 ea 12/28/19 Results & Data (ED) Vital Signs Vital Signs - 24 hr 01/03/20 20:50 01/03/20 21:48 01/03/20 22:08 Temperature 36.4 C L Temperature Source Oral Pulse Rate 110 H 106 H Pulse Rate [Right Finger] 104 H Pulse Rate from SpO2 Sensor 106 H Pulse Rhythm [Right Finger] Regular Respiratory Rate 19 22 20 Respiratory Effort / Characteristics Non-Labored Spontaneous Respiratory Depth Normal Blood Pressure 106/84 110/89 Blood Pressure [Left Arm] 113/90 Blood Pressure Mean 91 93 Blood Pressure Mean [Left Arm] 97 Pulse Oximetry 96 98 97 Oxygen Delivery Method Room Air Room Air Room Air Sepsis Recent Fever Within 48 Hours No Sepsis New/Unexplained Change in Mental Status No Sepsis Action Taken by Nursing No Action Required 01/03/20 22:33 01/03/20 22:37 01/03/20 23:00 Temperature Temperature Source Pulse Rate 114 H 96 H 98 H Pulse Rate [Right Finger] Pulse Rate from SpO2 Sensor 114 H 96 H 98 H Pulse Rhythm [Right Finger] Respiratory Rate 24 21 14 Respiratory Effort / Characteristics Respiratory Depth Blood Pressure 160/99 H 106/76 Blood Pressure [Left Arm] Blood Pressure Mean 116 93 Blood Pressure Mean [Left Arm] Pulse Oximetry 100 95 92 Oxygen Delivery Method Room Air Room Air Room Air Sepsis Recent Fever Within 48 Hours Sepsis New/Unexplained Change in Mental Status Sepsis Action Taken by [facility] Medications Current Medication List: was personally reviewed by me Laboratory Data Attestation: I reviewed the patient's lab results. Result diagrams: 01/03/20 21:05 01/03/20 21:05 Lab Results 01/03/20 01/03/20 01/03/20 Range/Units 21:05 21:05 21:05 WBC 5.43 (4.8-10.8) K/uL RBC 4.31 (4.2-5.4) M/uL Hgb 12.2 (12.0-16.0) g/dL Hct 36.8 L (37-47) % MCV 85.4 (80-100) fL MCH 28.3 (25-34) pg MCHC 33.2 (32-36) g/dL RDW Std Deviation 47.0 H (36.4-46.3) fL RDW Coeff of Anjelica 15.2 H (11.5-14.5) % Plt Count 277 (130-400) K/uL MPV 9.2 (7.4-10.4) fL Immature Gran % (Auto) 0.4 % Neut % (Auto) 89.8 % Lymph % (Auto) 9.6 % [place] % (Auto) 0.2 % Eos % (Auto) 0.0 % Baso % (Auto) 0.0 % Neut # (Auto) 4.88 (1.4-6.5) K/uL Lymph # (Auto) 0.52 L (1.2-3.4) K/uL [place] # (Auto) 0.01 L (0.11-0.59) K/uL Eos # (Auto) 0.00 (0-0.5) K/uL Baso # (Auto) 0.00 (0-0.2) K/uL Immature Gran # (Auto) 0.02 (0.00-0.02) K/uL PT 11.4 (9.0-12.0) Seconds INR 1.1 (0.9-1.1) APTT 20.3 L (21.0-31.0) Seconds PTT Ratio 0.7 Sodium 137 (136-145) mmol/L Potassium 2.9 L (3.5-5.1) mmol/L Chloride 95 L (98-107) mmol/L Carbon Dioxide 31 (21-32) mmol/L Anion Gap 11.0 (3-11) BUN 22 H (7-18) mg/dl Creatinine 1.24 H (0.6-1.2) mg/dl Est Cr Clr Drug Dosing Not Reportable Est GFR ( Amer) 53.2 Est GFR (Non-Af Amer) 45.9 BUN/Creatinine Ratio 17.5 (10-20) Glucose 131 H (70-99) mg/dl POC Glucose (70-99) mg/dl Calcium 9.8 (8.5-10.1) mg/dl Magnesium 1.7 L (1.8-2.4) mg/dl Total Bilirubin 0.5 (0.2-1) mg/dl AST 42 H (15-37) U/L ALT 43 (12-78) U/L Alkaline Phosphatase 89 (45-117) U/L Troponin I 0.029 (0-0.045) ng/ml Total Protein 7.4 (6.4-8.2) gm/dl Albumin 3.1 L (3.4-5.0) gm/dl Globulin 4.3 H (2.5-4.0) gm/dl Albumin/Globulin Ratio 0.7 L (0.9-2) Urine Color Urine Appearance (Clear) Urine pH (4.5-7.5) Ur Specific Angie (1.000-1.030) Urine Protein (Negative) Urine Glucose (UA) (Negative) Urine Ketones (Negative) Urine Blood (Negative) Urine Nitrite (Negative) Urine Bilirubin (Negative) Urine Urobilinogen (Negative) Ur Leukocyte Esterase (Negative) Urine WBC (Auto) (0-5) /hpf Urine RBC (Auto) (0-4) /hpf U Hyaline Cast (Auto) (0-5) /lpf U Epithel Cells (Auto) (0-5) /lpf Urine Bacteria (Auto) (Negative) Ur Renal Epithelial Cell Blood Type Antibody Screen 01/03/20 01/03/20 01/03/20 Range/Units 21:25 21:27 21:52 WBC (4.8-10.8) K/uL RBC (4.2-5.4) M/uL Hgb (12.0-16.0) g/dL Hct (37-47) % MCV (80-100) fL MCH (25-34) pg MCHC (32-36) g/dL RDW Std Deviation (36.4-46.3) fL RDW Coeff of Anjelica (11.5-14.5) % Plt Count (130-400) K/uL MPV (7.4-10.4) fL Immature Gran % (Auto) % Neut % (Auto) % Lymph % (Auto) % [place] % (Auto) % Eos % (Auto) % Baso % (Auto) % Neut # (Auto) (1.4-6.5) K/uL Lymph # (Auto) (1.2-3.4) K/uL [place] # (Auto) (0.11-0.59) K/uL Eos # (Auto) (0-0.5) K/uL Baso # (Auto) (0-0.2) K/uL Immature Gran # (Auto) (0.00-0.02) K/uL PT (9.0-12.0) Seconds INR (0.9-1.1) APTT (21.0-31.0) Seconds PTT Ratio Sodium (136-145) mmol/L Potassium (3.5-5.1) mmol/L Chloride (98-107) mmol/L Carbon Dioxide (21-32) mmol/L Anion Gap (3-11) BUN (7-18) mg/dl Creatinine (0.6-1.2) mg/dl Est Cr Clr Drug Dosing Est GFR ( Amer) Est GFR (Non-Af Amer) BUN/Creatinine Ratio (10-20) Glucose (70-99) mg/dl POC Glucose 142 H (70-99) mg/dl Calcium (8.5-10.1) mg/dl Magnesium (1.8-2.4) mg/dl Total Bilirubin (0.2-1) mg/dl AST (15-37) U/L ALT (12-78) U/L Alkaline Phosphatase (45-117) U/L Troponin I (0-0.045) ng/ml Total Protein (6.4-8.2) gm/dl Albumin (3.4-5.0) gm/dl Globulin (2.5-4.0) gm/dl Albumin/Globulin Ratio (0.9-2) Urine Color Yellow Urine Appearance Clear (Clear) Urine pH 7.5 (4.5-7.5) Ur Specific Angie 1.020 (1.000-1.030) Urine Protein 1+ H (Negative) Urine Glucose (UA) Negative (Negative) Urine Ketones Negative (Negative) Urine Blood Negative (Negative) Urine Nitrite Negative (Negative) Urine Bilirubin Negative (Negative) Urine Urobilinogen Negative (Negative) Ur Leukocyte Esterase 1+ H (Negative) Urine WBC (Auto) 5-10 H (0-5) /hpf Urine RBC (Auto) 0-4 (0-4) /hpf U Hyaline Cast (Auto) 1-5 (0-5) /lpf U Epithel Cells (Auto) >30 H (0-5) /lpf Urine Bacteria (Auto) Negative (Negative) Ur Renal Epithelial Cell Not Reportable Blood Type O Positive Antibody Screen NEGATIVE Administered Medications Sodium Chloride (Nss 1000ml) 500 mls @ 999 mls/hr IV .Q31M ONE Stop: 01/03/20 23:40 Last Admin: 01/03/20 23:16 Dose: 999 mls/hr Documented by: [id number] Potassium Chloride 40 meq/ (Sodium Chloride) 1,020 mls @ 200 mls/hr IV .Q5H6M STA Stop: 01/04/20 04:17 Last Admin: 01/03/20 23:26 Dose: 200 mls/hr Documented by: [id number] Discontinued Medications Sodium Chloride (Nss 1000ml) 500 mls @ 999 mls/hr IV .Q31M ONE Stop: 01/03/20 21:38 Last Infusion: 01/03/20 22:01 Dose: 0 mls/hr Documented by: [id number] Admin: 01/03/20 21:30 Dose: 999 mls/hr Documented by: [id number] Magnesium Sulfate/Dextrose (Magnesium Sulfate / D5w) 1 gm in 100 mls @ 100 mls/hr IV NOW STA Stop: 01/03/20 22:34 Last Infusion: 01/03/20 23:26 Dose: 0 mls/hr Documented by: [id number] Admin: 01/03/20 22:31 Dose: 100 mls/hr Documented by: [id number] Potassium Chloride (K Heladio / Wtr) 10 meq in 100 mls @ 100 mls/hr IV ONE ONE Stop: 01/03/20 22:34 Last Infusion: 01/03/20 23:26 Dose: 0 mls/hr Documented by: [id number] Admin: 01/03/20 22:33 Dose: 100 mls/hr Documented by: [id number] Ioversol (Optiray 320 125ml) 119 ml IV ONCE ONE Stop: 01/03/20 21:14 Last Admin: 01/03/20 21:14 Dose: 119 ml Documented by: [id number] Ondansetron HCl (Ondansetron Inj 2 Mg/Ml 2 Ml Vial) 4 mg IV NOW STA Stop: 01/03/20 21:09 Last Admin: 01/03/20 21:24 Dose: 4 mg Documented by: [id number] Imaging Data Attestation: I personally reviewed and interpreted this imaging study as follows: My Impression: Chest x-ray: There is no pneumonia, mediastinal widening or free air. The lungs appear clear. Radiologist's Impression: CTA of the neck: There was some atherosclerosis at the right carotid bifurcation with less than 50% stenosis. There was atherosclerosis at the left carotid bifurcation resulting in approximately 50 to 69% stenosis. There was atherosclerosis with 50 to 60% stenosis of the left subclavian artery. There was venous reflux of contrast seen throughout the neck of unknown significance. Brain CT: No intracranial hemorrhage or large territorial infarction. Global parenchymal volume loss. No mass-effect or mass lesion. CTA of the head: No large vessel occlusion or aneurysm. Irregularity of the M1 segment of the left middle cerebral artery with less than 50% stenosis. Reflux of contrast in the anterior and external jugular veins extending intracranially. Blood Pressure Blood Pressure Findings: Elevated blood pressure Blood Pressure Disposition: further management by hospitalist Discharge Plan Visit Data Chief Complaint: Altered Mental Status ED Provider: Cruz Weiss Discharge Problem: Expressive aphasia, Hypomagnesemia, Vomiting, TIA (transient ischemic attack), Hypokalemia Patient Disposition: Admitted As Inpatient Condition: Fair Forms Stand Alone Forms: [facility] [place] [employer] Prescriptions Prescriptions: No Action aripiprazole [Abilify] 10 mg tablet 10 mg PO HS RF: 0 albuterol sulfate 90 mcg/actuation HFA aerosol inhaler 2 puff INH Q6H PRN (Reason: Shortness Of Breath Or Wheezing) Qty: 18 RF: 3 Anoro Ellipta 62.5-25 mcg/actuation blister with device 1 puffs INH DAILY Qty: 60 RF: 3 nicotine 14 mg/24 hr patch 24 hour 1 patch TD DAILY Qty: 28 RF: 2 ibuprofen [Advil] 200 mg Tablet 400 mg PO Q12H PRN (Reason: Pain) RF: 0 olanzapine [Zyprexa] 10 mg tablet 10 mg PO UD RF: 0 oxycodone-acetaminophen 5-325 mg tablet 1 tab PO Q6 PRN (Reason: Pain) RF: 0 levofloxacin [Levaquin] 500 mg tablet 500 mg PO DAILY RF: 0 duloxetine 60 mg capsule,delayed release(DR/EC) 60 mg PO DAILY RF: 0 Magic Swizzle 15 ml PO ACHS RF: 0 multivitamin Tablet 1 tab PO QAM RF: 0 ondansetron HCl [Zofran] 8 mg tablet 8 mg PO Q8 PRN (Reason: Nausea) RF: 0 hydroxyzine HCl 50 mg tablet 50 mg PO UD PRN (Reason: Anxiety) RF: 0 prochlorperazine maleate [Compazine] 10 mg tablet 10 mg PO Q6 PRN (Reason: Nausea) RF: 0 melatonin 5 mg Tablet 5 mg PO HS PRN (Reason: Sleep) RF: 0 potassium chloride 20 mEq Packet 40 meq PO [id number] 15 Days Qty: 30 RF: 0 magnesium oxide 400 mg (241.3 mg magnesium) Tablet 400 mg PO QAM 15 Days Qty: 15 RF: 0 docusate sodium 100 mg Capsule 100 mg PO BID 30 Days Qty: 60 RF: 0 dexamethasone [Decadron] 4 mg tablet 4 mg PO UD RF: 0 Referrals Referrals: Rosa Crooks DO [Primary Care Provider] - Discharge Problem: Vomiting Qualifiers: Vomiting type: unspecified Vomiting Intractability: non-intractable Nausea presence: with nausea Qualified Code(s): R11.2 - Nausea with vomiting, unspecified
[2020-01-03 21:30] LABS: Alanine Aminotransferase 43 U/L (12-78); Albumin Level 3.1 gm/dl (3.4-5.0); Aspartate Aminotransferase 42 U/L (15-37); BUN Creatinine Ratio 17.5 (10-20); Blood Urea Nitrogen 22 mg/dl (7-18); Calcium 9.8 mg/dl (8.5-10.1); Carbon Dioxide 31 mmol/L (21-32); Chloride 95 mmol/L (98-107); Est GFR (African American) 53.2; Est GFR (Non-African American) 45.9; Glucose 131 mg/dl (70-99); Magnesium 1.7 mg/dl (1.8-2.4); Potassium 2.9 mmol/L (3.5-5.1); Sodium 137 mmol/L (136-145)
[2020-01-03 21:35] LABS: Albumin Globulin Ratio 0.7 (0.9-2); Alkaline Phosphatase 89 U/L (45-117); Bilirubin,Total 0.5 mg/dl (0.2-1); Globulin 4.3 gm/dl (2.5-4.0); INR 1.1 (0.9-1.1); Partial Thromboplastin Ratio 0.7; Partial Thromboplastin Time 20.3 Seconds (21.0-31.0); Prothrombin Time 11.4 Seconds (9.0-12.0); Total Protein 7.4 gm/dl (6.4-8.2); Troponin I 0.029 ng/ml (0-0.045)
[2020-01-03] MEDS ORDERED: POTASSIUM CHLORIDE / WTR 10 MEQ/100 ML PLCT IV ONE (21:35)
[2020-01-03] MEDS ORDERED: MAGNESIUM SULFATE / D5W 1 GM/100 ML BAG IV STA (21:35)
[2020-01-03 22:15] LABS: Appearance Urine Clear (Clear); Bacteria Urine Automated Negative (Negative); Bilirubin Urine Negative (Negative); Blood Urine Negative (Negative); Color Urine Yellow; Epithelial Cell Urine Auto >30 /lpf (0-5); Glucose Urine UA Negative (Negative); Ketones Urine Negative (Negative); Leukocyte Esterase Urine 1+ (Negative); Nitrite Urine Negative (Negative); Urobilinogen Urine Negative (Negative); pH Urine 7.5 (4.5-7.5)
[2020-01-03 22:28] LABS: Protein Urine 1+ (Negative)
[2020-01-03 22:40] LABS: RBC Urine Automated 0-4 /hpf (0-4)
[2020-01-03] MEDS ORDERED: POTASSIUM CHLORIDE 40 MEQ in SODIUM CHLORIDE 0.9% 1000ML 1,000 ML IV STA (23:12)
[2020-01-03] MEDS ORDERED: POTASSIUM CHLORIDE PWD 20 MEQ PACK PO STA (23:59)
--- NOTE | 2020-01-04 00:52 | History & Physical Report ---
Date of Service January 04, 2020 Assessment & Plan (1) Altered mental status: Likely metabolic encephalopathy from multiple electrolyte abnormalities, ARF secondary to poor p.o. 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 Heparin subcu Full code Text document was generated using [employer] voice recognition software. It may contain grammatical or spelling errors. Kindly contact undersigned for clarification of any documentation item in question. History of Present Illness Chief Complaint: Nausea, vomiting, transient slurred speech, inability to speak, generalized weakness Primary Care Provider: Rosa Crooks DO History obtained from patient and records. Medical history significant for small cell lung cancer ongoing chemoradiation, mood disorder, chronic anemia (baseline hemoglobin 10), past tobacco abuse. Last confinement 2 weeks ago for neutropenic fever. Second cycle chemotherapy administered outpatient by oncologist 5 days ago. Patient instructed to start 10-day Levaquin oral course 1 week after chemotherapy given prior neutropenic fever episode requiring hospitalization (start date 01/05) as per oncology note. Poor appetite postchemotherapy as per patient. Patient nauseous yesterday followed by emesis. Denies headache, abdominal pain, diarrhea, dysuria, chest pain, shortness of breath. Transient headache symptoms. Noted by to have decreased mentation, speech somewhat slurred, not talking as much. Stroke alert called upon arrival at the ER. Marked improvement in patient mentation and neurologic status after IVF administration at the ER. TPA not administered given patient's circumstances as per ER provider discussion with [facility] stroke specialist addictions counselor assistant.. 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 Allergies Allergy/AdvReac Type Severity Reaction Status Date / Time mushroom Allergy Severe anaphylaxis Verified 12/29/19 08:26 Penicillins Allergy Severe anaphylaxis, Verified 12/29/19 08:26 facial & throat swelling acetazolamide Allergy Unknown rash, hives Verified 12/29/19 08:26 mold Allergy Unknown unknown Verified 12/29/19 08:26 reaction sumatriptan AdvReac Unknown flushing, Verified 12/29/19 08:26 heart racing Home Medications Home Medications Medication Instructions Recorded Confirmed Type aripiprazole 10 mg tablet 10 mg PO HS 09/18/19 01/03/20 History ibuprofen [Advil] 400 mg PO Q12H PRN 10/13/19 01/03/20 History albuterol sulfate 90 mcg/actuation 2 puff INH Q6H PRN #18 gm 10/23/19 01/03/20 Rx aerosol inhaler umeclidinium 62.5 mcg-vilanterol 1 puffs INH DAILY #60 ea 10/23/19 01/03/20 Rx 25 mcg/actuation powdr for inhalation multivitamin 1 tab PO QAM 11/08/19 01/03/20 History nicotine 14 mg/24 hr daily 1 patch TD DAILY #28 ea 11/12/19 01/03/20 Rx transdermal patch hydroxyzine HCl 50 mg PO UD PRN 12/23/19 01/03/20 History melatonin 5 mg PO HS PRN 12/23/19 01/03/20 History ondansetron HCl [Zofran] 8 mg PO Q8 PRN 12/23/19 01/03/20 History prochlorperazine maleate 10 mg PO Q6 PRN 12/23/19 01/03/20 History [Compazine] docusate sodium 100 mg PO BID 30 Days #60 cap 12/28/19 01/03/20 Rx magnesium oxide 400 mg PO QAM 15 Days #15 tab 12/28/19 01/03/20 Rx potassium chloride 40 meq PO BID17 15 Days #30 ea 12/28/19 01/03/20 Rx dexamethasone 4 mg tablet 4 mg PO UD 12/29/19 01/03/20 History Magic Swizzle 15 ml PO ACHS 01/03/20 01/03/20 History duloxetine 60 mg PO DAILY 01/03/20 01/03/20 History levofloxacin [Levaquin] 500 mg PO DAILY 01/03/20 01/03/20 History olanzapine [Zyprexa] 10 mg PO UD 01/03/20 01/03/20 History oxycodone-acetaminophen 1 tab PO Q6 PRN 01/03/20 01/03/20 History Past Med/Surg History Medical History Acute kidney injury Acute shoulder pain Now a constant ache - no prescription meds needed Anxiety Chronic venous insufficiency follows with vascular (Dr. Carlson) CKD (chronic kidney disease), stage III COPD with emphysema Dentalgia Depression Hypertension Kidney stones LAD (lymphadenopathy), mediastinal Major depressive disorder, recurrent episode with anxious distress Daughter from OD in 2016 Migraine Nausea & vomiting Neutropenia with fever Nicotine dependence Polysubstance overdose Hx of 2017 Pulmonary nodule "7 mm RUL nodule, stable 09/25/15 - 09/16/16; repeat 6 mos" Surgical History History of bronchoscopy 10/30/2019 - with EBUS History of cataract surgery 2004 - bilateral History of section 1991 History of colonoscopy unsuccessful (poor bowel prep) History of cystoscopy 2007 - with stent History of dental surgery 02/2019 - Full upper teeth extracted S/P arthroscopy of left knee S/P arthroscopy of right knee Family History Grandmother (Maternal) , Passed in 80's of metastatic cancer (unknown primary) No problems noted. Mother , Passed age 93 of natural causes No problems noted. Father , Passed age 97 of natural causes No problems noted. Brother No problems noted. Daughter , Passed age 24 from Over Dose No problems noted. 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 [employer] Feels Safe at Home: Yes Childhood Exposure to Second-Hand Smoke: No caffeine: Yes (2 cups of coffee/day ) during the past year weight has: remained stable Dental Care, Regularly: Yes Assistive Devices: None Review of Systems Review of Systems: As per HPI, all 10 systems reviewed, all other ROS negative Physical Exam Physical Exam: GENERAL: Comfortable, wane, no respiratory distress SKIN: Pallor, warm HEENT: Sparse hair, pale palpebral conjunctivae, no ptosis, dry buccal mucosa NECK : Supple, no tenderness CHEST : Decreased breath sounds, no tenderness HEART : RRR, no obvious murmurs ABDOMEN: Some distention, nontender EXTREMITIES : No LE swelling/tenderness, no other conspicuous deformities noted NEUROLOGIC : Coherent, no facial asymmetry, no other gross focality Results & Data Results & Data ([facility]) Vital Signs (Past 12 Hours) Vital Signs Temp Pulse Pulse Resp BP BP Pulse Ox 01/04/20 00:30 94 H 15 104/73 96 01/04/20 00:00 96 H 14 103/75 97 01/03/20 23:30 97 H 18 135/91 94 01/03/20 23:00 98 H 14 106/76 92 01/03/20 22:37 96 H 21 160/99 H 95 01/03/20 22:33 114 H 24 100 01/03/20 22:08 106 H 20 110/89 97 01/03/20 21:48 104 H 22 113/90 98 01/03/20 20:50 36.4 C L 110 H 19 106/84 96 Laboratory Results Laboratory Results WBC 5.43 K/uL (4.8-10.8) 01/03/20 21:05 RBC 4.31 M/uL (4.2-5.4) 01/03/20 21:05 Hgb 12.2 g/dL (12.0-16.0) 01/03/20 21:05 Hct 36.8 % (37-47) L 01/03/20 21:05 MCV 85.4 fL (80-100) 01/03/20 21:05 MCH 28.3 pg (25-34) 01/03/20 21:05 MCHC 33.2 g/dL (32-36) 01/03/20 21:05 RDW Std Deviation 47.0 fL (36.4-46.3) H 01/03/20 21:05 RDW Coeff of Anjelica 15.2 % (11.5-14.5) H 01/03/20 21:05 Plt Count 277 K/uL (130-400) 01/03/20 21:05 MPV 9.2 fL (7.4-10.4) 01/03/20 21:05 Immature Gran % (Auto) 0.4 % 01/03/20 21:05 Neut % (Auto) 89.8 % 01/03/20 21:05 Lymph % (Auto) 9.6 % 01/03/20 21:05 Howell % (Auto) 0.2 % 01/03/20 21:05 Eos % (Auto) 0.0 % 01/03/20 21: Baso % (Auto) 0.0 % 01/03/20 21:05 Neut # (Auto) 4.88 K/uL (1.4-6.5) 01/03/20 21:05 Lymph # (Auto) 0.52 K/uL (1.2-3.4) L 01/03/20 21:05 Howell # (Auto) 0.01 K/uL (0.11-0.59) L 01/03/20 21:05 Eos # (Auto) 0.00 K/uL (0-0.5) 01/03/20 21:05 Baso # (Auto) 0.00 K/uL (0-0.2) 01/03/20 21:05 Immature Gran # (Auto) 0.02 K/uL (0.00-0.02) 01/03/20 21:05 PT 11.4 Seconds (9.0-12.0) 01/03/20 21:05 INR 1.1 (0.9-1.1) 01/03/20 21:05 APTT 20.3 Seconds (21.0-31.0) L 01/03/20 21:05 PTT Ratio 0.7 01/03/20 21:05 Sodium 137 mmol/L (136-145) 01/03/20 21:05 Potassium 2.9 mmol/L (3.5-5.1) L 01/03/20 21:05 Chloride 95 mmol/L (98-107) L 01/03/20 21:05 Carbon Dioxide 31 mmol/L (21-32) 01/03/20 21:05 Anion Gap 11.0 (3-11) 01/03/20 21:05 BUN 22 mg/dl (7-18) H 01/03/20 21:05 Creatinine 1.24 mg/dl (0.6-1.2) H 01/03/20 21:05 Est Cr Clr Drug Dosing Not Reportable 01/03/20 21:05 Est GFR ( Amer) 53.2 01/03/20 21:05 Est GFR (Non-Af Amer) 45.9 01/03/20 21:05 BUN/Creatinine Ratio 17.5 (10-20) 01/03/20 21:05 Glucose 131 mg/dl (70-99) H 01/03/20 21:05 POC Glucose 142 mg/dl (70-99) H 01/03/20 21:27 Calcium 9.8 mg/dl (8.5-10.1) 01/03/20 21:05 Magnesium 1.7 mg/dl (1.8-2.4) L 01/03/20 21:05 Total Bilirubin 0.5 mg/dl (0.2-1) 01/03/20 21:05 AST 42 U/L (15-37) H 01/03/20 21:05 ALT 43 U/L (12-78) 01/03/20 21:05 Alkaline Phosphatase 89 U/L (45-117) 01/03/20 21:05 Troponin I 0.029 ng/ml (0-0.045) 01/03/20 21:05 Total Protein 7.4 gm/dl (6.4-8.2) 01/03/20 21:05 Albumin 3.1 gm/dl (3.4-5.0) L 01/03/20 21:05 Globulin 4.3 gm/dl (2.5-4.0) H 01/03/20 21:05 Albumin/Globulin Ratio 0.7 (0.9-2) L 01/03/20 21:05 TSH 1.630 uIu/ml (0.300-4.500) 01/03/20 21:05 Urine Color Yellow 01/03/20:52 Urine Appearance Clear (Clear) 01/03/20 21:52 Urine pH 7.5 (4.5-7.5) 01/03/20 21:52 Ur Specific Protection 1.020 (1.000-1.030) 01/03/20 21:52 Urine Protein 1+ (Negative) H 01/03/20 21:52 Urine Glucose (UA) Negative (Negative) 01/03/20 21:52 Urine Ketones Negative (Negative) 01/03/20 21:52 Urine Blood Negative (Negative) 01/03/20 21:52 Urine Nitrite Negative (Negative) 01/03/20 21:52 Urine Bilirubin Negative (Negative) 01/03/20 21:52 Urine Urobilinogen Negative (Negative) 01/03/20 21:52 Ur Leukocyte Esterase 1+ (Negative) H 01/03/20 21:52 Urine WBC (Auto) 5-10 /hpf (0-5) H 01/03/20 21:52 Urine RBC (Auto) 0-4 /hpf (0-4) 01/03/20 21:52 U Hyaline Cast (Auto) 1-5 /lpf (0-5) 01/03/20 21:52 U Epithel Cells (Auto) >30 /lpf (0-5) H 01/03/20 21:52 Urine Bacteria (Auto) Negative (Negative) 01/03/20 21:52 Ur Renal Epithelial Cell Not Reportable 01/03/20 21:52 Blood Type O Positive 01/03/20 21:25 Antibody Screen NEGATIVE 01/03/20 21:[address] head initial read: No intracranial hemorrhage or evidence of large territorial infarct. Global parenchymal volume loss with chronic microvascular ischemic changes. No mass lesion or mass-effect. CTA head: No large vessel occlusion or aneurysm. Irregularity of M1 segment of L MCA with less than 50% stenosis. CTA neck initial read: Atherosclerosis right carotid bifurcation with less than 50% stenosis of proximal left ICA. Atherosclerosis of left carotid bifurcation resulting in approximately 50 to 60% of the left subclavian artery. Venous reflux of contrast is seen which extends throughout the neck. Potential collateral flow related to venous obstruction. Right upper extremity ultrasound could be performed for further evaluation. Mild wall thickening of the esophagus. Severe COPD. Stenosis of the proximal left ICA. Right dominant vertebral artery. Vertebral arteries are patent. Atherosclerosis with 5060% stenosis Chest x-ray as per my interpretation COPD, atelectasis EKG as per my interpretation : Rate 115, sinus tachycardia, normal axis, no ischemia
[2020-01-04] MEDS ORDERED: ACETAMINOPHEN 325 MG TAB PO PRN (04:42)
[2020-01-04] MEDS ORDERED: oxyCODONE/ACETAMINOPHEN 5mg/325mg TAB PO PRN (04:42)
[2020-01-04] MEDS ORDERED: POTASSIUM CHLORIDE 40 MEQ in SODIUM CHLORIDE 0.9% 1000ML 1,000 ML IV ONE (05:00)
[2020-01-04] MEDS: PROMETHAZINE HCL 12.5 MG in SODIUM CHLORIDE 0.9% 50 ML IV PRN ×3 (05:40→20:38)
[2020-01-04] MEDS: POTASSIUM CHLORIDE / WTR 10 MEQ/100 ML PLCT IV SCH ×4 (06:09→10:47)
[2020-01-04] MEDS: HEPARIN SOD 5,000 UNIT/0.5 ML VIAL SQ SCH ×3 (06:10→21:51)
[2020-01-04 06:27] LABS: Hematocrit (blood only) 35.9 % (37-47); Hemoglobin 11.7 g/dL (12.0-16.0); Immature Granulocytes # (auto) 0.05 K/uL (0.00-0.02); Immature Granulocytes % (auto) 1.3 %; Lymphocytes # (auto) 0.39 K/uL (1.2-3.4); Lymphocytes % (auto) 9.9 %; Mean Corpuscular Hemoglobin 28.3 pg (25-34); Mean Corpuscular Hgb Conc 32.6 g/dL (32-36); Mean Corpuscular Volume 86.7 fL (80-100); Mean Platelet Volume 9.3 fL (7.4-10.4); Monocytes # (auto) 0.01 K/uL (0.11-0.59); Monocytes % (auto) 0.3 %; Neutrophils # (auto) 3.47 K/uL (1.4-6.5); Neutrophils % (auto) 88.5 %; Platelet Count 222 K/uL (130-400); RDW Coefficient of Variation 15.6 % (11.5-14.5); RDW Standard Deviation 49.3 fL (36.4-46.3); Red Blood Count 4.14 M/uL (4.2-5.4); White Blood Count 3.92 K/uL (4.8-10.8)
[2020-01-04 06:53] LABS: Albumin Level 2.9 gm/dl (3.4-5.0); BUN Creatinine Ratio 15.5 (10-20); Calcium 9.1 mg/dl (8.5-10.1); Creatinine Clr Calc Pharmacy 54.4 ml/min; Est GFR (African American) 54.2; Est GFR (Non-African American) 46.8; Magnesium 1.9 mg/dl (1.8-2.4); Potassium 3.3 mmol/L (3.5-5.1)
[2020-01-04 06:56] LABS: Albumin Globulin Ratio 0.7 (0.9-2); Bilirubin,Total 0.4 mg/dl (0.2-1); Total Protein 6.9 gm/dl (6.4-8.2)
--- NOTE | 2020-01-04 08:45 | XRay Report ---
XR chest 1V portable CLINICAL HISTORY: sob, nv COMPARISON STUDY: Chest radiograph and chest CT 06/22/2019. FINDINGS: Lung volumes are normal. Lungs are clear. There is no pneumothorax or pleural effusion. Car diac size is normal. Mediastinal contours are normal. There is no evidence for pulmonary edema. A rig ht internal jugular [id number] is unchanged in position. IMPRESSION: No acute cardiopulmonary findings. ACT 112: Negative or not required by law. Electronically signed by: Ildefonso Alarcon M.D. 01/04/2020 8:44 AM
--- NOTE | 2020-01-04 09:09 | CT Scan Report ---
CT OF THE HEAD WITHOUT CONTRAST CLINICAL HISTORY: Stroke evaluation COMPARISON STUDY: Head CT September 16, 2016. MRI of the brain November 18, 2019. TECHNIQUE: Helical axial images of the head were obtained without IV contrast. Automated exposure con trol was utilized for the study. A dose lowering technique was utilized adhering to the principles o f ALARA. FINDINGS: No acute intracranial hemorrhage, midline shift or mass effect is present. The ventricular system is unremarkable. The basilar cisterns are patent. No extra-axial collections are present. Ther e are no findings to suggest acute dural sinus thrombosis or acute territorial infarct. No significan t calvarial abnormalities are present. Visualized portions of the sinuses and mastoid air cells are c lear with the exception of a mucous retention cyst within the left maxillary sinus. IMPRESSION: No acute intracranial findings. ACT 112: Negative or not required by law. Electronically signed by: Ildefonso Alarcon M.D. 01/04/2020 9:07 AM
--- NOTE | 2020-01-04 09:15 | CT Scan Report ---
CTA ANGIOGRAPHY OF THE HEAD CLINICAL HISTORY: Stroke evaluation. Slurred speech. COMPARISON STUDY: MRI of the brain November 18, 2019. Head CT September 16, 2016. TECHNIQUE: Helical axial images of the head were obtained following uneventful intravenous administr ation of 119 cc of Optiray 320. Sagittal and coronal reconstructions were viewed as well as maximal i ntensity projections on an independent 3-D workstation. Automated exposure control was utilized for the study. A dose lowering technique was utilized adhering to the principles of ALARA. CT DOSE: 1055.04 mGy.cm FINDINGS: No acute intracranial hemorrhage, midline shift or mass effect is present. Ventricular syst em is normal. The basilar cisterns are patent. There are no extra axial collections. There is moderat e stenosis of the left middle cerebral artery. Note is made of a short segment of occlusion of severa l sylvian branches of the left middle cerebral artery shown best on axial image 134 of 245 and 143 of 245. Posterior circulation is intact. There is persistence of the left posterior cerebral иван ry. There is no intracranial aneurysm. There is no dissection. There is moderate plaque within the bi lateral cavernous carotids. IMPRESSION: Two areas of short segment occlusion of several sylvian branches of the left middle cere bral artery which account for the patient's symptoms. This finding will be called/faxed to the orderi ng provider at time of dictation. ACT 112: Negative or not required by law. Electronically signed by: Ildefonso Alarcon M.D. 01/04/2020 9:14 AM
--- NOTE | 2020-01-04 09:22 | CT Scan Report ---
CT ANGIOGRAPHY OF THE NECK WITH CONTRAST CLINICAL HISTORY: Stroke evaluation COMPARISON STUDY: None. Technique: CT angiography of the carotid and vertebral arteries was obtained using [employer] 320 IV and 3D reconstruction on an independent workstation. NASCET criteria was utilized. Automated exposure c ontrol was utilized for the study. A dose lowering technique was utilized adhering to the principles of ALARA. Findings: Emphysema is noted within the lung apices. There is no cervical spine fracture. No cervical lymphadenopathy. There is venous reflux of contrast. Note is made of a 50% stenosis of the left subc lavian artery. The bilateral vertebral arteries are patent. There is no dissection within the major v essels of the neck. There is moderate plaque within the proximal left internal carotid artery which r esults in stenosis. Vessel measures 1.4 mm in caliber site of stenosis and 4.4 mm distally. There is moderate plaque within the proximal right internal carotid artery with mild stenosis. IMPRESSION: 1. 70% stenosis of the proximal left internal carotid artery. 2. Mild stenosis of the proximal right internal carotid artery. 3. No dissection within the major vessels of the neck. ACT 112: Negative or not required by law. Electronically signed by: Ildefonso Alarcon M.D. 01/04/2020 9:21 AM
[2020-01-04] MEDS: ASPIRIN 81 MG ECTAB PO SCH (09:38)
[2020-01-04] MEDS: DULoxetine HCL 60 MG CAP PO SCH (09:38)
[2020-01-04] MEDS: DOCUSATE SODIUM 100 MG CAP PO SCH ×2 (09:38→21:50)
[2020-01-04] MEDS: MULTIVITAMIN TAB PO SCH (09:38)
[2020-01-04] MEDS: UMECLIDINIUM/VILANTEROL 62.5/25MCG 7 PUFFS/INHALER INH SCH (09:39)
[2020-01-04] MEDS ORDERED: PHARMACIST DISCHARGE MED REC CONSULT PRN (09:45)
[2020-01-04] MEDS ORDERED: ASPIRIN 81 MG CHEW PO STA (10:24)
[2020-01-04] MEDS: NSS + 20MEQ KCL 20 MEQ/1,000 ML BAG IV SCH ×2 (10:51→18:44)
[2020-01-04] MEDS: CLOPIDOGREL BISULFATE 75 MG TAB PO SCH (10:51)
--- NOTE | 2020-01-04 11:32 | XRay Report ---
KUB CLINICAL HISTORY: nausea, r/o obstruction COMPARISON STUDY: CT of the abdomen and pelvis December 23, 2019. FINDINGS: Incidental note is made of contrast within the bladder from recent contrast-enhanced CT. Th e bowel gas pattern is normal. No urinary calculi are identified. Amount of stool within the colon an d rectum is within normal limits. Although sensitivity is diminished on this supine exam, there is no evidence for free air. IMPRESSION: Unremarkable KUB. ACT 112: Negative or not required by law. Electronically signed by: Ildefonso Alarcon M.D. 01/04/2020 11:30 AM
--- NOTE | 2020-01-04 11:33 | Electrocardiogram Report ---
Test Reason : Blood Pressure : / mmHG Vent. Rate : 113 BPM Atrial Rate : 113 BPM P-R Int : 112 ms QRS Dur : 080 ms QT Int : 336 ms P-R-T Axes : 062 061 068 degrees QTc Int : 460 ms Sinus tachycardia Otherwise normal ECG When compared with ECG of 23-DEC-2019 14:17, No significant change was found Confirmed by Saud Mittal ([id number]) on 01/04/2020 11:32:42 AM Referred By: REFERRED SELF Confirmed By:Saud Mittal
[2020-01-04] MEDS: ondansetron HCL 6 MG in DEXTROSE 5% 50 ML IV PRN ×2 (11:41→18:42)
--- NOTE | 2020-01-04 16:24 | Communication Note ---
Date of Service: January 04, 2020 Marcus Fischer is 64 years old is right-handed has small cell carcinoma of the lung has had 2 cycles of chemotherapy and was admitted earlier this month for febrile neutropenia and now has completed the second cycle of chemotherapy with nausea vomiting malaise and apparently had a very brief episode of what was interpreted as a aphasia manifested by confused nonsensical speech duration of about an hour last night which is now cleared I have been consulted by Dr. Dior because in the process of assessing her CT angiographic study of the brain showed evidence for a 70% left internal carotid artery stenosis and a left middle cerebral artery sylvian branch occlusion but nothing on CT scan to indicate a completed CVA She is to have an MRI but is not particularly desirous of doing so but insists now that she is recovered completely and still feels quite miserable from her chemotherapy I have discussed the case with Dr. Dior and recommended that she be placed on aspirin and Plavix as per the standard treatment of an assumed TIA/CVA and that in addition to the MRI we check an echocardiogram purely on the basis that she does have carcinoma could have carcinomatous associated nonbacterial thrombotic endocarditis or another cardiac cause for possible embolization in addition to the possible arterial to arterial embolism from her left internal carotid artery plaque The past medical history indicates a small cell carcinoma of the lung with post chemotherapy nausea vomiting and hyponatremia hypokalemia and hypomagnesemia, underlying depression, and stage III renal disease The initial diagnostic impression last night was that she had a mixed metabolic encephalopathy in addition to a possible CVA based purely upon the presence of her electrolyte abnormalities Medications at home include albuterol inhaler Rip is old, dexamethasone docusate duloxetine hydroxyzine ibuprofen Levaquin, magnesium oxide, melatonin, multivitamins, nicotine patch Zyprexa Zofran oxycodone, potassium chloride, Compazine, vilantrol inhaler Family history social history are all as outlined on the admitting history and physical Review of systems was difficult to obtain as the patient was clearly uncomfortable would prefer that I not prolong an examination of her today was in a dark room lying on her side clearly nauseous but not vomiting On exam which was truncated at the patient's request and in light of her clear discomfort showed a blood pressure of 126/86 pulse of 89 regular, respirations of 20 temperature 36.4 O2 saturations 96%. She was awake alert oriented had clear speech and on quick bedside memory testing appeared to be without any deficits but was somewhat irritable and clearly uncomfortable. There were no word substitutions no neologisms no paraphasias she responded to questions appropriately the new left rib right I did not persist and further assessment for any underlying aphasia. Gross cranial nerves were normal with no facial asymmetry no facial weakness normal eye movements gross visual bush were normal there is no drift or pronation sign of the upper extremities she could grasp my hands equally she moves her lower extremities equally. I did not notice any tremor or tics or choreiform activity. Reflexes were difficult to obtain because of poor relaxation toe signs were downgoing no Patrice signs were seen strength testing again was limited because of her discomfort and gross sensation was intact but not complete sensory examination cannot be performed This may have been a metabolic encephalopathy but the history suggests that there was at least an hour of language disturbance that possibly could have been a CVA TIA particularly in light of the CT angiographic evidence for localized intracranial middle cerebral branch occlusions possibly embolic possibly due to intrinsic small vessel disease The recommendations stand i.e. dual antiplatelet therapy with aspirin and Plavix for 21 days unless oncology has objections to this based on her chemotherapy and risk for thrombocytopenia, an MRI of the brain with and without contrast to be certain there is no new emergence of a metastatic deposit (unlikely in light of the recent essentially normal MRI in November (or more importantly a completed small vascular event involving the left hemisphere) and an echocardiographic study I will be back tomorrow hopefully at a time when she is feeling a little better can participate in neurologic examination Christoph Funes MD
--- NOTE | 2020-01-04 18:11 | Magnetic Resonance Report ---
MRI OF THE BRAIN WITHOUT CONTRAST CLINICAL HISTORY: Transient ischemic attack. Weakness. Slurred speech. Fall. COMPARISON STUDY: MRI of the brain November 18, 2019. Head CT and CTA of the head January 03, 2020. TECHNIQUE: Utilizing a 1.5 Latasha magnet and dedicated coil, multiplanar, multiecho imaging of the bra in was performed without IV contrast. FINDINGS: Note is made of multiple small foci of restricted diffusion within the left cerebral hemisp here. There is no mass effect. There is no hemorrhage. These are new since previous MRI. Ventricular system is stable. Basilar cisterns are patent. There are no extra axial collections. There is apparen t loss of the flow voids for the right transverse sinus, sigmoid sinus and proximal portion of the ri ght internal jugular vein. Otherwise, flow voids are maintained. Calvarial signal is normal. A left m axilla sinus mucous retention cyst is noted. IMPRESSION: 1. Multiple small acute infarcts within the left cerebral hemisphere which suggest an embolic etiolog y. No acute hemorrhage. No mass effect. 2. Apparent loss of the flow void for the right transverse and sigmoid sinuses and proximal portion o f the right internal jugular vein. This could be due to slow flow or dural sinus thrombosis. A CTV of the head is recommended. ACT 112: Negative or not required by law. Electronically signed by: Ildefonso Alarcon M.D. 01/04/2020 6:10 PM
--- NOTE | 2020-01-04 18:19 | Hospitalist Progress Note ---
Date of Service January 04, 2020 Assessment & Plan (1) Expressive aphasia: 64 year old female with small cell lung Ca on chemo presenting with episode of aphasia, nausea/vomiting APHASIA, LIKELY ACUTE CVA vs TIA CT Head: no CVA Brain MRI: pending CTA Head and Neck: (+) occlusion L MCA small vessels L ICA stenosis Echo: pending, r/o thrombus Aspirin, Plavix, Lipitor started continue Telemetry monitoring discussed with Dr. Funes Altered mental status: Likely metabolic encephalopathy from multiple electrolyte abnormalities, ARF secondary to poor p.o. intake following recent chemotherapy back to baseline continue IV fluids hx small cell lung cancer ongoing chemoradiation - hold Levaquin as patient on Zofran PVD on imaging mood disorder, at baseline chronic anemia - stable Asymptomatic pyuria - monitor Hyperglycemia, likely secondary to Decadron administration from recent chemotherapy rule out DM 2 - glucose level stable Past tobacco abuse DVT prophylaxis. Heparin subcu Full code Admission and Anticipated Discharge Date Admission Date: January 04, 2020 Subjective ff up for episode of aphasia, etc seen resting in bed, sleeping easily awakened, not in distress patient states her speech is back to baseline denies any other new focal deficit still having nausea, 1 episode of emesis--> typical after chemo as per patient denies abdominal pain, nausea/vomiting no other symptoms Review of Systems Review of Systems: All systems reviewed & are unremarkable except as noted in Subjective Physical Exam Physical Exam: General- oriented x 3, not in distress, speaks in sentences with no effort or accessory muscle use Head- atraumatic Eyes- PERRL, EOMI, anicteric ENT- oropharynx clear Neck- supple, no JVD, no adenopathy, no thyromegaly; carotids +2/2, no bruits appreciated Lungs- port in place R upper chest wall, clear to auscultation bilaterally, no rales/wheezes Heart- normal rate, regular rhythm; no murmurs Abdomen- normal bowel sounds, nondistended, soft, nontender, no masses or hepatosplenomegaly Extremities- no pretibial edema, no calf tenderness; peripheral pulses intact Neuro- alert, oriented x 3; CN 2-12 grossly intact; motor 5/5 bilaterally;sensation 100% on all extremities; no other gross focal neurologic deficits Skin- warm & dry Results & Data Results & Data ([facility]) Vital Signs (Past 12 Hours) Vital Signs Temp Pulse Pulse Resp BP Pulse Ox 01/04/20 14:52 36.4 C L 89 20 126/86 96 01/04/20 07:27 95 H 01/04/20 07:00 36.4 C L 97 H 18 130/88 92 Laboratory Results Laboratory Results - last 24 hr 01/03/20 01/03/20 01/03/20 21:05 21:05 21:05 WBC 5.43 RBC 4.31 Hgb 12.2 Hct 36.8 L MCV 85.4 MCH 28.3 MCHC 33.2 RDW Std Deviation 47.0 H RDW Coeff of Anjelica 15.2 H Plt Count 277 MPV 9.2 Immature Gran % (Auto) 0.4 Neut % (Auto) 89.8 Lymph % (Auto) 9.6 M[place]re[place] % (Auto) 0.2 Eos % (Auto) 0.0 Baso % (Auto) 0.0 Neut # (Auto) 4.88 Lymph # (Auto) 0.52 L [place]re[place] # (Auto) 0.01 L Eos # (Auto) 0.00 Baso # (Auto) 0.00 Immature Gran # (Auto) 0.02 PT 11.4 INR 1.1 APTT 20.3 L PTT Ratio 0.7 Sodium 137 Potassium 2.9 L Chloride 95 L Carbon Dioxide 31 Anion Gap 11.0 BUN 22 H Creatinine 1.24 H Est Cr Clr Drug Dosing Not Reportable Est GFR ( Amer) 53.2 Est GFR (Non-Af Amer) 45.9 BUN/Creatinine Ratio 17.5 Glucose 131 H POC Glucose Estimat Average Glucose Hemoglobin A1c Calcium 9.8 Magnesium 1.7 L Total Bilirubin 0.5 AST 42 H ALT 43 Alkaline Phosphatase 89 Troponin I 0.029 Total Protein 7.4 Albumin 3.1 L Globulin 4.3 H Albumin/Globulin Ratio 0.7 L TSH 1.630 Urine Color Urine Appearance Urine pH Ur Specific [place] Urine Protein Urine Glucose (UA) Urine Ketones Urine Blood Urine Nitrite Urine Bilirubin Urine Urobilinogen Ur Leukocyte Esterase Urine WBC (Auto) Urine RBC (Auto) U Hyaline Cast (Auto) U Epithel Cells (Auto) Urine Bacteria (Auto) Ur Renal Epithelial Cell Blood Type Antibody Screen 01/03/20 01/03/20 01/03/20 21:25 21:27 21:52 WBC RBC Hgb Hct MCV MCH MCHC RDW Std Deviation RDW Coeff of Anjelica Plt Count MPV Immature Gran % (Auto) Neut % (Auto) Lymph % (Auto) [place] % (Auto) Eos % (Auto) Baso % (Auto) Neut # (Auto) Lymph # (Auto) [place] # (Auto) Eos # (Auto) Baso # (Auto) Immature Gran # (Auto) PT INR APTT PTT Ratio Sodium Potassium Chloride Carbon Dioxide Anion Gap BUN Creatinine Est Cr Clr Drug Dosing Est GFR ( Amer) Est GFR (Non-Af Amer) BUN/Creatinine Ratio Glucose POC Glucose 142 H Estimat Average Glucose Hemoglobin A1c Calcium Magnesium Total Bilirubin AST ALT Alkaline Phosphatase Troponin I Total Protein Albumin Globulin Albumin/Globulin Ratio TSH Urine Color Yellow Urine Appearance Clear Urine pH 7.5 Ur Specific [place] 1.020 Urine Protein 1+ H Urine Glucose (UA) Negative Urine Ketones Negative Urine Blood Negative Urine Nitrite Negative Urine Bilirubin Negative Urine Urobilinogen Negative Ur Leukocyte Esterase 1+ H Urine WBC (Auto) 5-10 H Urine RBC (Auto) 0-4 U Hyaline Cast (Auto) 1-5 U Epithel Cells (Auto) >30 H Urine Bacteria (Auto) Negative Ur Renal Epithelial Cell Not Reportable Blood Type O Positive Antibody Screen NEGATIVE 01/04/20 01/04/20 01/04/20 06:12 06:12 06:12 WBC 3.92 L RBC 4.14 L Hgb 11.7 L Hct 35.9 L MCV 86.7 MCH 28.3 MCHC 32.6 RDW Std Deviation 49.3 H RDW Coeff of Anjelica 15.6 H Plt Count 222 MPV 9.3 Immature Gran % (Auto) 1.3 Neut % (Auto) 88.5 Lymph % (Auto) 9.9 [place] % (Auto) 0.3 Eos % (Auto) 0.0 Baso % (Auto) 0.0 Neut # (Auto) 3.47 Lymph # (Auto) 0.39 L [place] # (Auto) 0.01 L Eos # (Auto) 0.00 Baso # (Auto) 0.00 Immature Gran # (Auto) 0.05 H PT INR APTT PTT Ratio Sodium 139 Potassium 3.3 L Chloride 101 Carbon Dioxide 29 Anion Gap 9.0 BUN 19 H Creatinine 1.22 H Est Cr Clr Drug Dosing 54.4 Est GFR ( Amer) 54.2 Est GFR (Non-Af Amer) 46.8 BUN/Creatinine Ratio 15.5 Glucose 111 H POC Glucose Estimat Average Glucose Pending Hemoglobin A1c Pending Calcium 9.1 Magnesium 1.9 Total Bilirubin 0.4 AST 39 H ALT 43 Alkaline Phosphatase 84 Troponin I Total Protein 6.9 Albumin 2.9 L Globulin 4.0 Albumin/Globulin Ratio 0.7 L TSH Urine Color Urine Appearance Urine pH Ur Specific [place] Urine Protein Urine Glucose (UA) Urine Ketones Urine Blood Urine Nitrite Urine Bilirubin Urine Urobilinogen Ur Leukocyte Esterase Urine WBC (Auto) Urine RBC (Auto) U Hyaline Cast (Auto) U Epithel Cells (Auto) Urine Bacteria (Auto) Ur Renal Epithelial Cell Blood Type Antibody Screen
[2020-01-04] MEDS: ARIPiprazole 10 MG TAB PO SCH (21:50)
[2020-01-04] MEDS: ATORVASTATIN 40 MG TAB PO SCH (21:50)
[2020-01-05] MEDS: NSS + 20MEQ KCL 20 MEQ/1,000 ML BAG IV SCH ×3 (03:27→23:14)
[2020-01-05] MEDS: ondansetron HCL 6 MG in DEXTROSE 5% 50 ML IV PRN ×3 (04:00→20:31)
[2020-01-05 05:59] LABS: Estimated Average Glucose 146 mg/dl; Hemoglobin A1C 6.7 % (4.5-5.6)
[2020-01-05] MEDS: HEPARIN SOD 5,000 UNIT/0.5 ML VIAL SQ SCH ×4 (06:23→20:15)
[2020-01-05 08:04] LABS: Hematocrit (blood only) 31.7 % (37-47); Hemoglobin 10.6 g/dL (12.0-16.0); Immature Granulocytes # (auto) 0.12 K/uL (0.00-0.02); Immature Granulocytes % (auto) 4.2 %; Lymphocytes # (auto) 0.31 K/uL (1.2-3.4); Lymphocytes % (auto) 10.7 %; Mean Corpuscular Hemoglobin 28.8 pg (25-34); Mean Corpuscular Hgb Conc 33.4 g/dL (32-36); Mean Corpuscular Volume 86.1 fL (80-100); Mean Platelet Volume 9.3 fL (7.4-10.4); Monocytes # (auto) 0.01 K/uL (0.11-0.59); Monocytes % (auto) 0.3 %; Neutrophils # (auto) 2.45 K/uL (1.4-6.5); Neutrophils % (auto) 84.8 %; Platelet Count 164 K/uL (130-400); RDW Coefficient of Variation 15.4 % (11.5-14.5); RDW Standard Deviation 48.2 fL (36.4-46.3); Red Blood Count 3.68 M/uL (4.2-5.4); White Blood Count 2.89 K/uL (4.8-10.8)
[2020-01-05] MEDS: PROMETHAZINE HCL 12.5 MG in SODIUM CHLORIDE 0.9% 50 ML IV PRN ×3 (08:13→23:31)
[2020-01-05 08:40] LABS: BUN Creatinine Ratio 13.8 (10-20); Creatinine Clr Calc Pharmacy 59.2 ml/min; Est GFR (African American) 60.1; Est GFR (Non-African American) 51.9; Potassium 3.9 mmol/L (3.5-5.1)
[2020-01-05] MEDS: UMECLIDINIUM/VILANTEROL 62.5/25MCG 7 PUFFS/INHALER INH SCH (09:45)
[2020-01-05] MEDS ORDERED: GADOBUTROL 65ML VIAL IV ONE (09:46)
[2020-01-05] MEDS: ASPIRIN 81 MG ECTAB PO SCH (09:46)
[2020-01-05] MEDS: MULTIVITAMIN TAB PO SCH (09:46)
[2020-01-05] MEDS: DOCUSATE SODIUM 100 MG CAP PO SCH ×3 (09:46→20:19)
[2020-01-05] MEDS: DULoxetine HCL 60 MG CAP PO SCH (09:46)
[2020-01-05] MEDS: CLOPIDOGREL BISULFATE 75 MG TAB PO SCH (09:47)
[2020-01-05] MEDS ORDERED: OPTIRAY 320 125ml IV ONE (12:56)
--- NOTE | 2020-01-05 13:27 | CT Scan Report ---
CT head venogram wo/w con HISTORY: Headache. r/o venous sinus thrombosis TECHNIQUE: Multiaxial CT images of the head were performed following the use of intravenous contrast to evaluate the major dural venous sinuses. COMPARISON STUDY: Head and neck CTA 01/03/2020. FINDINGS: A 1.6 cm retention cyst within the left maxillary sinus. The mastoid air cells are clear. T he calvarium and skull base are intact. The ventricles and sulci demonstrate mild age-related involut ional changes. No definite acute infarct. There is no mass, hematoma, or midline shift. The right int ernal jugular vein is not well opacified. The visualized left internal jugular vein, bilateral sigmoi d sinuses, bilateral transverse sinuses, straight sinus, vein of Karl, bilateral internal cerebral v eins, and the superior sagittal sinus are patent. No evidence for dural venous sinus thrombosis. IMPRESSION: 1. No evidence for dural venous sinus thrombosis. 2. No acute intracranial abnormality. ACT 112: Negative or not required by law. Electronically signed by: Avni Gongora M.D. 01/05/2020 1:26 PM
--- NOTE | 2020-01-05 15:52 | Communication Note ---
Date of Service: January 05, 2020 I saw Miguel today in follow-up. She is much better less nauseated more conversant and on examination has minimal if any a aphasia no right hemiparesis but on MRI scan did have some small areas of infarction in the left hemisphere compatible with the occlusion of her left MCA branches noted on CT angiography. The echocardiogram is pending but has been performed. There was some question about a venous sinus thrombosis that has been settled by performance of a CT venous angiogram that shows no significant intracranial venous occlusion which is important as she has been dehydrated and has perhaps a coagulopathy associated with her cancer At this point I would simply add Plavix to her aspirin continuous for 21 days and have her follow-up with neurology in about 3 to 4 weeks Obviously she is going to have to be in until her nausea and chemotherapy reaction is better but at this point I do not think neurology needs to get any more involved in her case unless of course she would have further vascular events I be happy to take a look at her again should new issues arise between now and the time of discharge Christoph Funes MD
[2020-01-05] MEDS: ATORVASTATIN 40 MG TAB PO SCH (20:13)
[2020-01-05] MEDS: ARIPiprazole 10 MG TAB PO SCH (20:14)
--- NOTE | 2020-01-05 20:18 | Hospitalist Progress Note ---
Date of Service January 05, 2020 Assessment & Plan (1) Expressive aphasia: 64 year old female with small cell lung Ca on chemo presenting with episode of aphasia, nausea/vomiting APHASIA, ACUTE CVA, LEFT CEREBRAL HEMISPHERE, 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 CT Head: no CVA Brain MRI: 1. Multiple small acute infarcts within the left cerebral hemisphere which suggest an embolic etiology. No acute hemorrhage. No mass effect. 2. Apparent loss of the flow void for the right transverse and sigmoid sinuses and proximal portion of the right internal jugular vein. This could be due to slow flow or dural sinus thrombosis. A CTV of the head is recommended. CTA Head and Neck: (+) occlusion L MCA small vessels L ICA stenosis CT venogram: no sinus thrombosis Echo: EF 60-65%. mild LVH, no shunting continue ASA, Lipitor continue Telemetry monitoring discussed with Dr. Funes Altered mental status: Likely metabolic encephalopathy from multiple electrolyte abnormalities, ARF secondary to poor p.o. intake following recent chemotherapy back to baseline continue IV fluids History of small cell lung cancer ongoing chemoradiation - hold Levaquin as patient on Zofran - start Doxycycline BID PVD on imaging mood disorder, at baseline chronic anemia - stable Asymptomatic pyuria - monitor Hyperglycemia, likely secondary to Decadron administration from recent chemotherapy rule out DM 2 - glucose level stable Past tobacco abuse DVT prophylaxis. Heparin subcu Full code Disposition PT/OT eval: recommend d/c home when stable lives at home with family Admission and Anticipated Discharge Date Admission Date: January 04, 2020 Subjective ff up for acute cva, nausea seen resting in bed, comfortable states nausea is improving, requesting diet to be advanced no abdominal pain, nausea/vomiting states speech is back to baseline denies other focal neurologic deficits Review of Systems Review of Systems: All systems reviewed & are unremarkable except as noted in Subjective Physical Exam Physical Exam: General- oriented x 3, not in distress, speaks in sentences with no effort or accessory muscle use Eyes- anicteric Neck- no JVD Lungs- clear breath sounds bilaterally, no crackles/wheezing Heart- normal rate, regular rhythm; no murmurs Abdomen- normal bowel sounds, nondistended, soft, nontender Extremities- no pretibial edema, no calf tenderness Neuro- alert, oriented x 3; no gross focal neurologic deficits Skin- warm & dry Results & Data Results & Data ([facility]) Vital Signs (Past 12 Hours) Vital Signs Temp Pulse Pulse Resp BP Pulse Ox 01/05/20 19:28 36.7 C 103 H 18 134/82 96 01/05/20 14:57 37.5 C 100 H 16 116/82 97 01/05/20 14:52 100 H 01/05/20 10:52 37.3 C 100 H 16 101/70 91 Laboratory Results Laboratory Results - last 24 hr 01/04/20 01/05/20 01/05/20 06:12 07:35 07:35 WBC 2.89 L RBC 3.68 L Hgb 10.6 L Hct 31.7 L MCV 86.1 MCH 28.8 MCHC 33.4 RDW Std Deviation 48.2 H RDW Coeff of Anjelica 15.4 H Plt Count 164 MPV 9.3 Immature Gran % (Auto) 4.2 Neut % (Auto) 84.8 Lymph % (Auto) 10.7 [place] % (Auto) 0.3 Eos % (Auto) 0.0 Baso % (Auto) 0.0 Neut # (Auto) 2.45 Lymph # (Auto) 0.31 L [place] # (Auto) 0.01 L Eos # (Auto) 0.00 Baso # (Auto) 0.00 Immature Gran # (Auto) 0.12 H Sodium 139 Potassium 3.9 D Chloride 105 Carbon Dioxide 28 Anion Gap 7.0 BUN 16 Creatinine 1.12 Est Cr Clr Drug Dosing 59.2 Est GFR ( Amer) 60.1 Est GFR (Non-Af Amer) 51.9 BUN/Creatinine Ratio 13.8 Glucose 113 H Estimat Average Glucose 146 Hemoglobin A1c 6.7 H Calcium 9.0 Triglycerides 182 H Cholesterol 219 H LDL Cholesterol, Calc 125 VLDL Cholesterol, Calc 36 HDL Cholesterol 58 Cholesterol/HDL Ratio 4
[2020-01-05] MEDS ORDERED: Nursing to Pharmacy Communication SCH (23:30)
[2020-01-06] MEDS: HEPARIN SOD 5,000 UNIT/0.5 ML VIAL SQ SCH ×3 (05:51→21:10)
[2020-01-06 07:15] LABS: Eosinophils # (auto) 0.01 K/uL (0-0.5); Eosinophils % (auto) 0.5 %; Hematocrit (blood only) 28.6 % (37-47); Hemoglobin 9.4 g/dL (12.0-16.0); Immature Granulocytes # (auto) 0.08 K/uL (0.00-0.02); Immature Granulocytes % (auto) 4.3 %; Lymphocytes # (auto) 0.33 K/uL (1.2-3.4); Lymphocytes % (auto) 17.9 %; Mean Corpuscular Hemoglobin 28.3 pg (25-34); Mean Corpuscular Hgb Conc 32.9 g/dL (32-36); Mean Corpuscular Volume 86.1 fL (80-100); Mean Platelet Volume 9.5 fL (7.4-10.4); Monocytes # (auto) 0.01 K/uL (0.11-0.59); Monocytes % (auto) 0.5 %; Neutrophils # (auto) 1.41 K/uL (1.4-6.5); Neutrophils % (auto) 76.8 %; Platelet Count 112 K/uL (130-400); RDW Coefficient of Variation 15.3 % (11.5-14.5); RDW Standard Deviation 48.2 fL (36.4-46.3); Red Blood Count 3.32 M/uL (4.2-5.4); White Blood Count 1.84 K/uL (4.8-10.8)
[2020-01-06 07:44] LABS: BUN Creatinine Ratio 11.1 (10-20); Calcium 8.2 mg/dl (8.5-10.1); Creatinine Clr Calc Pharmacy 55.7 ml/min; Est GFR (African American) 55.9; Est GFR (Non-African American) 48.2; Potassium 3.5 mmol/L (3.5-5.1)
[2020-01-06] MEDS: NSS + 20MEQ KCL 20 MEQ/1,000 ML BAG IV SCH ×2 (08:03→16:34)
[2020-01-06] MEDS: PROMETHAZINE HCL 12.5 MG in SODIUM CHLORIDE 0.9% 50 ML IV PRN ×2 (08:36→17:05)
[2020-01-06] MEDS: UMECLIDINIUM/VILANTEROL 62.5/25MCG 7 PUFFS/INHALER INH SCH (09:08)
[2020-01-06] MEDS: DOCUSATE SODIUM 100 MG CAP PO SCH ×2 (09:08→21:10)
[2020-01-06] MEDS: ASPIRIN 81 MG ECTAB PO SCH (09:08)
[2020-01-06] MEDS: DULoxetine HCL 60 MG CAP PO SCH (09:08)
[2020-01-06] MEDS: CLOPIDOGREL BISULFATE 75 MG TAB PO SCH (09:09)
[2020-01-06] MEDS: MULTIVITAMIN TAB PO SCH (09:09)
[2020-01-06] MEDS ORDERED: levoFLOXacin/D5W 750 MG/150 ML BAG IV SCH (11:00)
[2020-01-06] MEDS: ondansetron HCL 6 MG in DEXTROSE 5% 50 ML IV PRN ×2 (13:00→21:09)
[2020-01-06] MEDS: ARIPiprazole 10 MG TAB PO SCH (21:09)
[2020-01-06] MEDS: ATORVASTATIN 40 MG TAB PO SCH (21:10)
[2020-01-07] MEDS: NSS + 20MEQ KCL 20 MEQ/1,000 ML BAG IV SCH ×3 (00:12→18:35)
[2020-01-07] MEDS: PROMETHAZINE HCL 12.5 MG in SODIUM CHLORIDE 0.9% 50 ML IV PRN ×3 (01:02→23:47)
--- NOTE | 2020-01-07 01:18 | Hospitalist Progress Note ---
Date of Service January 07, 2020 Assessment & Plan (1) Expressive aphasia: 64 year old female with small cell lung Ca on chemo presenting with episode of aphasia, nausea/vomiting APHASIA, ACUTE CVA, LEFT CEREBRAL HEMISPHERE, 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 CT Head: no CVA Brain MRI: 1. Multiple small acute infarcts within the left cerebral hemisphere which suggest an embolic etiology. No acute hemorrhage. No mass effect. 2. Apparent loss of the flow void for the right transverse and sigmoid sinuses and proximal portion of the right internal jugular vein. This could be due to slow flow or dural sinus thrombosis. A CTV of the head is recommended. CTA Head and Neck: (+) occlusion L MCA small vessels L ICA stenosis CT venogram: no sinus thrombosis Echo: EF 60-65%. mild LVH, no shunting continue ASA + PLavix, Lipitor continue Telemetry monitoring discussed with Dr. Funes will need outpatient property assessment monitor to r/o A fib Altered mental status: Likely metabolic encephalopathy from multiple electrolyte abnormalities, ARF secondary to poor p.o. intake following recent chemotherapy back to baseline continue IV fluids History of small cell lung cancer ongoing chemoradiation - hold Levaquin as patient on Zofran - started Doxycycline BID ( 2 more days to complete 10 day course) - discussed with Dr. Washington Hebert- radiation oncologist follow up next week for resumption of radiation therapy PVD on imaging mood disorder, at baseline chronic anemia - stable Asymptomatic pyuria - no urinary symptoms Hyperglycemia, likely secondary to Decadron administration from recent chemotherapy rule out DM 2 - glucose level stable Past tobacco abuse DVT prophylaxis. Heparin subcu Full code Disposition PT/OT eval: recommend d/c home when stable lives at home with family anticipate d/c home 01/07/2020 Admission and Anticipated Discharge Date Admission Date: January 04, 2020 Subjective ff up for acute CVA, nausea/vomiting seen resting in bed, more comfortable not in distress speech back to baseline, no new neurologic deficits nausea also much better tolerating diet well no other symptoms Review of Systems Review of Systems: All systems reviewed & are unremarkable except as noted in Subjective Physical Exam Physical Exam: General- oriented x 3, not in distress, speaks in sentences with no effort or accessory muscle use Eyes- anicteric Neck- no JVD Lungs- clear breath sounds bilaterally Heart- normal rate, regular rhythm; no murmurs Abdomen- normal bowel sounds, nondistended, soft, nontender Extremities- no pretibial edema, no calf tenderness Neuro- alert, oriented x 3; no gross focal neurologic deficits Skin- warm & dry Results & Data Results & Data ([facility]) Vital Signs (Past 12 Hours) Vital Signs Temp Pulse Pulse Resp BP Pulse Ox 01/07/20 00:24 95 H 01/06/20 23:00 36.7 C 109 H 20 124/86 98 01/06/20 19:17 36.7 C 101 H 18 112/76 91 01/06/20 15:44 36.8 C 85 17 119/78 99 01/06/20 15:00 109 H Laboratory Results all noted
[2020-01-07] MEDS: HEPARIN SOD 5,000 UNIT/0.5 ML VIAL SQ SCH ×3 (05:53→21:40)
[2020-01-07 07:20] LABS: Mean Corpuscular Hemoglobin 28.6 pg (25-34); Mean Corpuscular Hgb Conc 33.3 g/dL (32-36); Mean Corpuscular Volume 85.7 fL (80-100); RDW Coefficient of Variation 15.4 % (11.5-14.5); RDW Standard Deviation 47.5 fL (36.4-46.3); Red Blood Count 3.15 M/uL (4.2-5.4); White Blood Count 1.16 K/uL (4.8-10.8)
[2020-01-07 07:41] LABS: Immature Granulocytes # (auto) 0.01 K/uL (0.00-0.02); Immature Granulocytes % (auto) 0.9 %; Lymphocytes # (auto) 0.26 K/uL (1.2-3.4); Lymphocytes % (auto) 22.4 %; Mean Platelet Volume 9.5 fL (7.4-10.4); Neutrophils # (auto) 0.89 K/uL (1.4-6.5); Neutrophils % (auto) 76.7 %; Platelet Count 90 K/uL (130-400); Platelet Estimate Decreased (Normal)
[2020-01-07 07:45] LABS: BUN Creatinine Ratio 9.6 (10-20); Calcium 8.4 mg/dl (8.5-10.1); Creatinine Clr Calc Pharmacy 58.9 ml/min; Est GFR (African American) 59.5; Est GFR (Non-African American) 51.3; Potassium 3.5 mmol/L (3.5-5.1)
[2020-01-07] MEDS: ondansetron HCL 6 MG in DEXTROSE 5% 50 ML IV PRN ×2 (08:19→16:30)
[2020-01-07] MEDS: ASPIRIN 81 MG ECTAB PO SCH (08:29)
[2020-01-07] MEDS: MULTIVITAMIN TAB PO SCH (08:30)
[2020-01-07] MEDS: DOCUSATE SODIUM 100 MG CAP PO SCH ×2 (08:30→21:40)
[2020-01-07] MEDS: CLOPIDOGREL BISULFATE 75 MG TAB PO SCH (08:31)
[2020-01-07] MEDS: DULoxetine HCL 60 MG CAP PO SCH (08:31)
[2020-01-07] MEDS: UMECLIDINIUM/VILANTEROL 62.5/25MCG 7 PUFFS/INHALER INH SCH (08:31)
--- NOTE | 2020-01-07 12:17 | Hospitalist Progress Note ---
Date of Service January 07, 2020 Assessment & Plan (1) CVA (cerebral vascular accident): (2) Expressive aphasia: 64 year old female with small cell lung Ca on chemo presenting with episode of aphasia, nausea/vomiting ACUTE CVA, LEFT CEREBRAL HEMISPHERE, 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 CT Head: no CVA Brain MRI: 1. Multiple small acute infarcts within the left cerebral hemisphere which suggest an embolic etiology. No acute hemorrhage. No mass effect. 2. Apparent loss of the flow void for the right transverse and sigmoid sinuses and proximal portion of the right internal jugular vein. This could be due to slow flow or dural sinus thrombosis. A CTV of the head is recommended. CTA Head and Neck: (+) occlusion L MCA small vessels L ICA stenosis CT venogram: no sinus thrombosis Echo: EF 60-65%. mild LVH, no shunting Continue ASA + Plavix (for 21 days), Lipitor Neurology recommendations noted Will need outpatient threat monitoring analyst to r/o A fib History of small cell lung cancer ongoing chemoradiation Levaquin was held as patient is on Zofran prn for nausea/vomiting Currently on Doxycycline BID ( 1 more days to complete 10 day course) Dr Eduardo discussed with Dr. Washington Hebert- radiation oncologist Follow up next week for resumption of radiation therapy ANC today 0.89. No fevers CBC w/diff next week on discharged PVD on imaging Mood disorder, at baseline Chronic anemia Stable Hyperglycemia, likely secondary to Decadron administration from recent chemotherapy rule out DM 2 Glucose level stable Past tobacco abuse DVT prophylaxis. Heparin subcu Full code Disposition Plan to dc home. Patient stated she will like to stay another day to optimize GI symptom control Admission and Anticipated Discharge Date Admission Date: January 04, 2020 Subjective Patient seen and examined Reports some nausea and vomiting this AM Denied any fevers, chills Denied any abd pain, diarrhea Denied dysuria, freq, urgency, hematuria Physical Exam Constitutional: + well hydrated; no acute distress Eyes: PERRL, conjunctivae normal, anicteric sclerae ENMT: external ear and nose normal, oropharynx normal Respiratory: normal respiratory effort, lungs clear to auscultation Cardiovascular: Rate/Rhythm: regular rate and regular rhythm Extremities: no pedal edema S1 S2 Gastrointestinal (Abdomen): normal bowel sounds, soft, nontender, no hepatosplenomegaly Neurologic: PERRL, EOMI, accommodation nl, no face palsy, no dysarthria Psychiatric: A+Ox3, euthymic affect Results & Data Results & Data ([facility]) Vital Signs (Past 12 Hours) Vital Signs Temp Pulse Pulse Resp BP Pulse Ox 01/07/20 11:30 36.9 C 87 18 147/94 H 96 01/07/20 07:18 101 H 01/07/20 07:00 36.7 C 96 H 20 138/83 97 01/07/20 04:00 36.6 C 109 H 20 138/83 98 01/07/20 00:24 95 H Laboratory Results Laboratory Results - last 24 hr 01/07/20 01/07/20 06:56 06:56 WBC 1.16 L RBC 3.15 L Hgb 9.0 L Hct 27.0 L MCV 85.7 MCH 28.6 MCHC 33.3 RDW Std Deviation 47.5 H RDW Coeff of Anjelica 15.4 H Plt Count 90 L MPV 9.5 Immature Gran % (Auto) 0.9 Neut % (Auto) 76.7 Lymph % (Auto) 22.4 [place] % (Auto) 0.0 Eos % (Auto) 0.0 Baso % (Auto) 0.0 Neut # (Auto) 0.89 L* Lymph # (Auto) 0.26 L [place] # (Auto) 0.00 L Eos # (Auto) 0.00 Baso # (Auto) 0.00 Immature Gran # (Auto) 0.01 Platelet Estimate Decreased L Sodium 141 Potassium 3.5 Chloride 108 H Carbon Dioxide 26 Anion Gap 7.0 BUN 11 Creatinine 1.13 Est Cr Clr Drug Dosing 58.9 Est GFR ( Amer) 59.5 Est GFR (Non-Af Amer) 51.3 BUN/Creatinine Ratio 9.6 L Glucose 103 H Calcium 8.4 L
[2020-01-07] MEDS ORDERED: ALUMINUM/MAGNESIUM SUSP 30 ML UDC PO STA (17:49)
[2020-01-07] MEDS: ARIPiprazole 10 MG TAB PO SCH (21:40)
[2020-01-07] MEDS: ATORVASTATIN 40 MG TAB PO SCH (21:40)
[2020-01-08] MEDS: ondansetron HCL 6 MG in DEXTROSE 5% 50 ML IV PRN ×2 (02:31→12:16)
[2020-01-08] MEDS: NSS + 20MEQ KCL 20 MEQ/1,000 ML BAG IV SCH (03:05)
[2020-01-08] MEDS: HEPARIN SOD 5,000 UNIT/0.5 ML VIAL SQ SCH ×2 (05:13→14:04)
[2020-01-08 07:23] LABS: BUN Creatinine Ratio 11.1 (10-20); Calcium 8.3 mg/dl (8.5-10.1); Creatinine Clr Calc Pharmacy 68.7 ml/min; Est GFR (African American) 71.5; Est GFR (Non-African American) 61.7; Potassium 3.3 mmol/L (3.5-5.1)
[2020-01-08 07:29] LABS: Giant Platelets 1+; Hematocrit (blood only) 25.6 % (37-47); Hemoglobin 8.5 g/dL (12.0-16.0); Lymphocytes # (auto) 0.32 K/uL (1.2-3.4); Lymphocytes % (auto) 45.1 %; Mean Corpuscular Hemoglobin 28.4 pg (25-34); Mean Corpuscular Hgb Conc 33.2 g/dL (32-36); Mean Corpuscular Volume 85.6 fL (80-100); Mean Platelet Volume 10.5 fL (7.4-10.4); Monocytes # (auto) 0.01 K/uL (0.11-0.59); Monocytes % (auto) 1.4 %; Neutrophils # (auto) 0.38 K/uL (1.4-6.5); Neutrophils % (auto) 53.5 %; Platelet Count 67 K/uL (130-400); RDW Coefficient of Variation 15.1 % (11.5-14.5); RDW Standard Deviation 47.5 fL (36.4-46.3); Red Blood Count 2.99 M/uL (4.2-5.4); Toxic Granulation 1+; White Blood Count 0.71 K/uL (4.8-10.8)
[2020-01-08] MEDS: PROMETHAZINE HCL 12.5 MG in SODIUM CHLORIDE 0.9% 50 ML IV PRN ×2 (07:37→15:55)
[2020-01-08] MEDS: UMECLIDINIUM/VILANTEROL 62.5/25MCG 7 PUFFS/INHALER INH SCH (07:37)
[2020-01-08] MEDS: MULTIVITAMIN TAB PO SCH (07:38)
[2020-01-08] MEDS: ASPIRIN 81 MG ECTAB PO SCH (07:38)
[2020-01-08] MEDS: DULoxetine HCL 60 MG CAP PO SCH (07:38)
[2020-01-08] MEDS: CLOPIDOGREL BISULFATE 75 MG TAB PO SCH (07:38)
[2020-01-08] MEDS: DOCUSATE SODIUM 100 MG CAP PO SCH (08:39)
[2020-01-08] MEDS ORDERED: POTASSIUM CHLORIDE 20 MEQ TABCR PO STA (09:05)
[2020-01-08] MEDS ORDERED: DOXYCYCLINE HYCLATE 100 MG CAP PO SCH (09:30)
[2020-01-08] MEDS: POTASSIUM CHLORIDE / WTR 10 MEQ/100 ML PLCT IV SCH ×4 (10:53→15:25)
[2020-01-08] MEDS ORDERED: STROKE PATIENT DISCHARGE STA (11:21)
--- NOTE | 2020-01-08 11:21 | Discharge Summary ---
Date of Service January 08, 2020 Admission HPI Per Admitting Provider History obtained from patient and records. Medical history significant for small cell lung cancer ongoing chemoradiation, mood disorder, chronic anemia (baseline hemoglobin 10), past tobacco abuse. Last confinement 2 weeks ago for neutropenic fever. Second cycle chemotherapy administered outpatient by oncologist 5 days ago. Patient instructed to start 10-day Levaquin oral course 1 week after chemotherapy given prior neutropenic fever episode requiring hospitalization (start date 01/05) as per oncology note. Poor appetite postchemotherapy as per patient. Patient nauseous yesterday followed by emesis. Denies headache, abdominal pain, diarrhea, dysuria, chest pain, shortness of breath. Transient headache symptoms. Noted by to have decreased mentation, speech somewhat slurred, not talking as much. Stroke alert called upon arrival at the ER. Marked improvement in patient mentation and neurologic status after IVF administration at the ER. TPA not administered given patient's circumstances as per ER provider discussion with [facility] stroke specialist software configuration analyst.. 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 Admission Exam Per Admitting Provider GENERAL: Comfortable, wane, no respiratory distress SKIN: Pallor, warm HEENT: Sparse hair, pale palpebral conjunctivae, no ptosis, dry buccal mucosa NECK : Supple, no tenderness CHEST : Decreased breath sounds, no tenderness HEART : RRR, no obvious murmurs ABDOMEN: Some distention, nontender EXTREMITIES : No LE swelling/tenderness, no other conspicuous deformities noted NEUROLOGIC : Coherent, no facial asymmetry, no other gross focality Principal Diagnosis Acute left cerebral CVA Pancytopenia Discharge Exam Constitutional + well hydrated; no acute distress Eyes PERRL, conjunctivae normal, anicteric sclerae ENMT external ear and nose normal, oropharynx normal Respiratory normal respiratory effort, lungs clear to auscultation Cardiovascular Rate/Rhythm: regular rate and regular rhythm Extremities: no pedal edema Gastrointestinal (Abdomen) normal bowel sounds, soft, nontender, no hepatosplenomegaly Neurologic PERRL, EOMI, accommodation nl, no face palsy, no dysarthria Psychiatric A+Ox3, euthymic affect Discharge Data Allergies Allergy/AdvReac Type Severity Reaction Status Date / Time mushroom Allergy Severe anaphylaxis Verified 12/29/19 08:26 Penicillins Allergy Severe anaphylaxis, Verified 12/29/19 08:26 facial & throat swelling acetazolamide Allergy Unknown rash, hives Verified 12/29/19 08:26 mold Allergy Unknown unknown Verified 12/29/19 08:26 reaction sumatriptan AdvReac Unknown flushing, Verified 12/29/19 08:26 heart racing Consultations 01/03/20 22:40 ED Decision to Admit Stat 01/04/20 09:46 Consult Case Management - Discharge Planning Routine Consult Neurology Routine Ordered Studies 01/03/20 21:08 CT angio head w con Urgent No acute intracranial hemorrhage, midline shift or mass effect is present. Ventricular system is normal. The basilar cisterns are patent. There are no extra axial collections. There is moderate stenosis of the left middle cerebral artery. Note is made of a short segment of occlusion of several sylvian branches of the left middle cerebral artery shown best on axial image 134 of 245 and 143 of 245. Posterior circulation is intact. There is persistence of the left posterior cerebral artery. There is no intracranial aneurysm. There is no dissection. There is moderate plaque within the bilateral cavernous carotids. IMPRESSION: Two areas of short segment occlusion of several sylvian branches of the left middle cerebral artery which account for the patient's symptoms. This finding will be called/faxed to the ordering provider at time of dictation. CT angio neck with con Urgent Emphysema is noted within the lung apices. There is no cervical spine fracture. No cervical lymphadenopathy. There is venous reflux of contrast. Note is made of a 50% stenosis of the left subclavian artery. The bilateral vertebral arteries are patent. There is no dissection within the major vessels of the neck. There is moderate plaque within the proximal left internal carotid artery which results in stenosis. Vessel measures 1.4 mm in caliber site of stenosis and 4.4 mm distally. There is moderate plaque within the proximal right internal carotid artery with mild stenosis. IMPRESSION: 1. 70% stenosis of the proximal left internal carotid artery. 2. Mild stenosis of the proximal right internal carotid artery. 3. No dissection within the major vessels of the neck. CT head/brain wo con Urgent No acute intracranial hemorrhage, midline shift or mass effect is present. The ventricular system is unremarkable. The basilar cisterns are patent. No extra- axial collections are present. There are no findings to suggest acute dural sinus thrombosis or acute territorial infarct. No significant calvarial abnormalities are present. Visualized portions of the sinuses and mastoid air cells are clear with the exception of a mucous retention cyst within the left maxillary sinus. IMPRESSION: No acute intracranial findings. 01/04/20 07:03 MR brain wo con Routine Note is made of multiple small foci of restricted diffusion within the left cerebral hemisphere. There is no mass effect. There is no hemorrhage. These are new since previous MRI. Ventricular system is stable. Basilar cisterns are patent. There are no extra axial collections. There is apparent loss of the flow voids for the right transverse sinus, sigmoid sinus and proximal portion of the right internal jugular vein. Otherwise, flow voids are maintained. Calvarial signal is normal. A left maxilla sinus mucous retention cyst is noted. IMPRESSION: 1. Multiple small acute infarcts within the left cerebral hemisphere which suggest an embolic etiology. No acute hemorrhage. No mass effect. 2. Apparent loss of the flow void for the right transverse and sigmoid sinuses and proximal portion of the right internal jugular vein. This could be due to slow flow or dural sinus thrombosis. A CTV of the head is recommended. 01/05/20 11:21 CT head venogram wo/w con Stat A 1.6 cm retention cyst within the left maxillary sinus. The mastoid air cells are clear. The calvarium and skull base are intact. The ventricles and sulci demonstrate mild age-related involutional changes. No definite acute infarct. There is no mass, hematoma, or midline shift. The right internal jugular vein is not well opacified. The visualized left internal jugular vein, bilateral sigmoid sinuses, bilateral transverse sinuses, straight sinus, vein of Karl, bilateral internal cerebral veins, and the superior sagittal sinus are patent. No evidence for dural venous sinus thrombosis. IMPRESSION: 1. No evidence for dural venous sinus thrombosis. 2. No acute intracranial abnormality. Hospital Course (1) CVA (cerebral vascular accident): (2) Expressive aphasia: 64 year old female with small cell lung Ca on chemo presenting with episode of aphasia, nausea/vomiting ACUTE CVA, LEFT CEREBRAL HEMISPHERE, 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 CT Head: no CVA Brain MRI: 1. Multiple small acute infarcts within the left cerebral hemisphere which suggest an embolic etiology. No acute hemorrhage. No mass effect. 2. Apparent loss of the flow void for the right transverse and sigmoid sinuses and proximal portion of the right internal jugular vein. This could be due to slow flow or dural sinus thrombosis. A CTV of the head is recommended. CTA Head and Neck: (+) occlusion L MCA small vessels L ICA stenosis CT venogram: No sinus thrombosis Echo: EF 60-65%. mild LVH, no shunting Continue ASA + Plavix (for total of 21 days) Continue Lipitor Was evaluated by Neurology. Will need neurology follow up outpatient Will need outpatient plasterer foreman to r/o A fib History of small cell lung cancer ongoing chemoradiation Levaquin was prescribed for patient to start a week after last visit with oncologist. Levofloxacin discontinued as patient is on Zofran prn for nausea/vomiting due to possible QTC prolongation with other meds Currently on Doxycycline BID ( 1 more days to complete 10 day course) Also has pancytopenia. WBC today was 0.71K/uL with ANC of 0.38K/UL I spoke with patient's Oncologist, Anup Link today. We discussed patient in details. He is ok with continuing doxycycline prophylactically for chemotherapy induced neutropenia Patient did not have fevers. Ok to continue dual antiplatelet as Neurology recommended. Patient is to follow up with him outpatient Educated patient to come to ER if she develops fever or bleeding Oncologist will follow CBC outpatient Follow up with Rad oncologist as well PVD on imaging Mood disorder, at baseline Hypokalemic today with K of 3.3. Repleted prior to discharge Continue home po potassium Total Time Total Time Spent Total Time Spent (In Minutes): 50 Total Time Includes: Examination of the Patient, Discharge Planning, Medication Reconciliation and Communication With Other Providers Discharge Plan Discharge Items Patient Disposition: Home - Home Health Services Reason For Visit: AMS Discharge Diagnosis: Acute Cerebrovascular accident (Stroke) Pancytopenia Condition on Discharge: Fair Activity: As commented below Activity Comment: As instructed by physical therapy Non-emergency contact: Primary Care Provider and Oncologist Call non-emergency contact if: you have any medication questions Follow-up/Referrals: Rosa Crooks DO [Primary Care Provider] - 01/13/20 2:20 pm (Date & Time 01/13/2020 2:20 PM Provider Katy Taylor DO Department [facility] ) Rosette Costello PA-C [Physician Infusion Rn] - 01/30/20 11:20 am (Date & Time 01/30/2020 11:20 AM Provider Rosette Costello PA-C Department Neurology [facility] ) Anibal Hebert MD [Surgeon] - 01/27/20 8:15 am (Date & Time 01/27/2020 8:15 AM Provider Anibal Hebert MD Department Hematology/Oncology [facility] ) Diet: Heart Healthy Ambulatory Orders: Complete Blood Count with Diff (Routine) Timeframe: 1 Week Location: Determined by Patient Ordered By: Ingris Lugo Attending Provider Instructions: Ms Fischer. You came to the hospital for change in mental status and slurred speech. You were evaluated and managed for a stroke confirmed on MRI brain. You were started on Aspirin and Plavix (clopidogrel). You need to take both medi cations for another 16 days after which you stop the plavix and continue the aspirin. You need to follow up with the Neurologist in 3 weeks Please follow up with your Oncologist and Radiation oncologist. Please take the antibiotic doxycycline for prophylaxis for the next 1 week It was a pleasure taking care of you. Pending Studies at Discharge: No Stand-Alone Forms: Medications to Prevent Stroke, My [facility] ChoicePass, Smoking Cessation Medications and DC Order Prescriptions: New atorvastatin 40 mg Tablet 40 mg PO HS 30 Days Qty: 30 RF: 0 doxycycline hyclate 100 mg Capsule 100 mg PO BID 7 Days Qty: 14 RF: 0 clopidogrel 75 mg Tablet 75 mg PO QAM 16 Days Qty: 16 RF: 0 aspirin 81 mg Tablet,Delayed Release (Dr/Ec) 81 mg PO QAM 30 Days Qty: 30 RF: 0 Continued aripiprazole [Abilify] 10 mg tablet 10 mg PO HS RF: 0 albuterol sulfate 90 mcg/actuation HFA aerosol inhaler 2 puff INH Q6H PRN (Reason: Shortness Of Breath Or Wheezing) Qty: 18 RF: 3 Anoro Ellipta 62.5-25 mcg/actuation blister with device 1 puffs INH DAILY Qty: 60 RF: 3 nicotine 14 mg/24 hr patch 24 hour 1 patch TD DAILY Qty: 28 RF: 2 ibuprofen [Advil] 200 mg Tablet 400 mg PO Q12H PRN (Reason: Pain) RF: 0 olanzapine [Zyprexa] 10 mg tablet 10 mg PO UD RF: 0 oxycodone-acetaminophen 5-325 mg tablet 1 tab PO Q6 PRN (Reason: Pain) RF: 0 duloxetine 60 mg capsule,delayed release(DR/EC) 60 mg PO DAILY RF: 0 Magic Swizzle 15 ml PO ACHS RF: 0 multivitamin Tablet 1 tab PO QAM RF: 0 ondansetron HCl [Zofran] 8 mg tablet 8 mg PO Q8 PRN (Reason: Nausea) RF: 0 hydroxyzine HCl 50 mg tablet 50 mg PO UD PRN (Reason: Anxiety) RF: 0 prochlorperazine maleate [Compazine] 10 mg tablet 10 mg PO Q6 PRN (Reason: Nausea) RF: 0 melatonin 5 mg Tablet 5 mg PO HS PRN (Reason: Sleep) RF: 0 potassium chloride 20 mEq Packet 40 meq PO BID17 15 Days Qty: 30 RF: 0 magnesium oxide 400 mg (241.3 mg magnesium) Tablet 400 mg PO QAM 15 Days Qty: 15 RF: 0 docusate sodium 100 mg Capsule 100 mg PO BID 30 Days Qty: 60 RF: 0 dexamethasone [Decadron] 4 mg tablet 4 mg PO UD RF: 0 Discontinued levofloxacin [Levaquin] 500 mg tablet 500 mg PO DAILY RF: 0 Discharge Orders: Discharge Order (Routine); Ordered 01/08/20 Ordered By: Ingris Noguera/Other Patient Handouts: A1C Admission Data Admit Date/Time: 01/04/20 18:25 Attending Provider: Ingris Simpson I. Admit Provider: Joe Goldsmith Primary Care Provider: Rosa Crooks Other Providers: Joe Goldsmith ; Christoph Funes ; [facility] ; Kemal Eduardo
--- NOTE | 2020-01-08 14:29 | Pharmacy Report ---
Pharmacist Stroke Counseling - Date of Service January 08, 2020 - Scope: Pharmacy has been consulted to provide medication discharge counseling for this patient admitted with [ischemic stroke] [hemorrhagic stroke] [transient ischemic attack] as per the Pharmacist Discharge Counseling for Stroke Patients Asha col. - Medications on Discharge: Home Medications Medication Instructions Recorded Confirmed aripiprazole 10 mg tablet 10 mg PO HS 09/18/19 01/03/20 ibuprofen [Advil] 400 mg PO Q12H PRN 10/13/19 01/03/20 multivitamin 1 tab PO QAM 11/08/19 01/03/20 hydroxyzine HCl 50 mg PO UD PRN 12/23/19 01/03/20 melatonin 5 mg PO HS PRN 12/23/19 01/03/20 ondansetron HCl [Zofran] 8 mg PO Q8 PRN 12/23/19 01/03/20 prochlorperazine maleate 10 mg PO Q6 PRN 12/23/19 01/03/20 [Compazine] dexamethasone 4 mg tablet 4 mg PO UD 12/29/19 01/03/20 Magic Swizzle 15 ml PO ACHS 01/03/20 01/03/20 duloxetine 60 mg PO DAILY 01/03/20 01/03/20 olanzapine [Zyprexa] 10 mg PO UD 01/03/20 01/03/20 oxycodone-acetaminophen 1 tab PO Q6 PRN 01/03/20 01/03/20 New Rx's Medication Instructions Recorded albuterol sulfate 90 mcg/actuation 2 puff INH Q6H PRN #18 gm 10/23/19 aerosol inhaler umeclidinium 62.5 mcg-vilanterol 1 puffs INH DAILY #60 ea 10/23/19 25 mcg/actuation powdr for inhalation nicotine 14 mg/24 hr daily 1 patch TD DAILY #28 ea 11/12/19 transdermal patch docusate sodium 100 mg PO BID 30 Days #60 cap 12/28/19 magnesium oxide 400 mg PO QAM 15 Days #15 tab 12/28/19 potassium chloride 40 meq PO BID17 15 Days #30 ea 12/28/19 aspirin 81 mg PO QAM 30 Days #30 tab 01/08/20 atorvastatin 40 mg PO HS 30 Days #30 tab 01/08/20 clopidogrel 75 mg PO QAM 16 Days #16 tab 01/08/20 doxycycline hyclate 100 mg PO BID 7 Days #14 cap 01/08/20 - Action: The above medications, specifically ones for stroke treatment/prophylaxis, have been reviewed in detail with the patient prior to discharge. This includes indication, common adverse reactions, drug interactions, and medication administration. Medication counseling has been employed using the teach-back method to ensure understanding. - Outcome: The patient has demonstrated understanding of the medications. Additional comments: -reviewed doxycycline, aspirin, Plavix, and Lipitor with patient. -she was understanding of time limit on Plavix. -no questions or concerns. Thank you for allowing pharmacy to be involved in the care of this patient. Please call [phone] with any additional questions
--- NOTE | 2020-01-18 17:46 | Coding Query ---
CODING QUERY To promote full compliance with coding requirements relating to patient care, provider participation is requested in all cases of leather fitter uncertainty. Please assist us with the question(s) below: Coding Question(s): 1. The Discharge Summary documents Pancytopenia. Please clarify below, in your clinical opinion. ( x ) Pancytopenia due to Chemotherapy ( ) Pancytopenia due to Other: Please Specify ( ) Pancytopenia, Unspecified 2. Please indicate below, regarding the Present on Admission status of the Pancytopenia. ( x ) Present on Admission ( ) Not Present on Admission ( ) Unknown POA status ( ) Other: Please Specify Physician's Response(s): Thank you Kate Palacio Principal Diagnosis: "that condition established after study, to be chiefly responsible for occasioning the admission of the patient to the hospital for care." Co-Existing Principal Diagnosis: "when two or more diagnoses equally meet the criteria for principal diagnosis as determined by the circumstances of admission, diagnostic work up, and/or therapy provided, and the Alphabetic Index, Tabular List, or another coding guideline does not provide sequencing direction, any one of the diagnoses may be sequenced first." "When the physician has documented what appears to be a current diagnosis in the body of the record, but has not included the diagnosis in the final diagnostic statement, the physician should be asked whether the diagnosis should be added." (Source [facility] 2 QTR90. p3-4) NIVIA
== END 2020-01-08 18:37 | disposition home health service (06) | DRG 64 ==
LOC: ED 20:48 → 2N 20:48 → SUATTDRO 01-04 18:25 → 2W 01-06 09:57

== ENCOUNTER 2020-01-11 15:26 | Inpatient (IN) ==
[2020-01-11] MEDS ORDERED: PROMETHAZINE 12.5 MG/50.5 ML BAG IV STA (15:48)
[2020-01-11] MEDS ORDERED: ONDANSETRON INJ 2 MG/ML 2 ML VIAL IV STA (15:48)
[2020-01-11] MEDS ORDERED: ERTAPENEM SODIUM 10 ML IV STA (15:48)
--- NOTE | 2020-01-11 15:56 | Emergency Department Note ---
Impression & Plan Weakness, Hypomagnesemia, Vomiting, Acute dehydration, Neutropenia, Thrombocytopenia ED Provider Note NAME: BREN BELTRAN AGE: 64 SEX: F : 1955 ARRIVES VIA: Ambulance INFORMANT: [Patient][ems, nursing] ED PROVIDER(S): [Cruz Weiss MD] CHIEF COMPLAINT: Short of breath, nausea and vomiting HISTORY OF PRESENT ILLNESS: The patient is a 64-year-old female who has lung cancer. Her last chemotherapy was 1-1/2-weeks ago. Her last radiation therapy was around a week ago she believes. Patient was in the hospital recently for a stroke. She was discharged 3 days ago. The patient was doing well up until today. The patient states that today, she has had nausea and vomiting all day. She cannot take her meds or drink or eat. She states that around 5-1/2 hours ago, she suddenly felt short of breath and had some midsternal chest pain. The chest pain was moderate in severity and did not radiate and seemed better when she would drink warm liquids. She thinks that she is dehydrated. There has been no fever, she has been cold though. No rash, no abdominal pain, no diarrhea. No known coronavirus exposures. Of note, the patient did try to present to the ED by private vehicle but was too weak and short of breath to get into the car. The ambulance was summoned. REVIEW OF SYSTEMS: See HPI for pertinent positives and negatives. A total of ten systems were reviewed and were otherwise negative. PMHx/PSHx: See Below SOCIAL HISTORY: See Below. PHYSICAL EXAM: GENERAL: Patient is in no acute distress. HEENT: No acute trauma, normocephalic atraumatic, mucous membranes moist, no nasal congestion, no scleral icterus. NECK: No stridor, no adenopathy, no meningismus, trachea is midline. LUNGS: Clear to auscultation bilaterally, no wheeze, no rhonchi, breath sounds equal. HEART: Tachycardic, regular rhythm, no obvious murmur. ABDOMEN: Soft, nontender, bowel sounds positive, no hernias, no peritonitis. EXTREMITIES: No cyanosis or edema, full range of motion of all the joints without pain or difficulty, no signs for acute trauma. NEUROLOGIC: Oriented x 3, no acute motor or sensory deficits, no focal weakness. SKIN: No rash, no jaundice, no diaphoresis. DIFFERENTIAL DIAGNOSIS: Sepsis, UTI, pneumonia, metabolic, electrolyte abnormalities, cardiac sources, dehydration, coronavirus, intracerebral event, toxicologic, neurologic, as well as other pathologies. EMERGENCY DEPARTMENT COURSE/PROCEDURES: ECG: Indication was chest pain. The ECG shows a sinus tachycardia with a rate of 124. There is some mild diffuse ST depression consistent likely with the fast rate. No ST elevation, no PVCs. The QTc is 459. Compared to an ECG from 03 January 2020, the rate has increased, no changes otherwise. Continuous Cardiac Monitoring: An order was placed for continuous cardiac monitoring. The monitor shows a rate of 122 with sinus tachycardia. Critical Care Note: I have personally spent 42 minutes of critical care time in the direct management of this patient. This includes bedside care, interpretation of diagnostic studies, and testing, discussion with consultants, patient, and family members, and other required patient management activities. This 42 minutes is in excess of all separately billable procedures. MEDICAL DECISION MAKING: The patient is pancytopenic. Her white count is quite low 0.34. She is neutropenic. Hemoglobin is low at 10.2. Platelet count is quite low at 19. INR is elevated at 1.5. Potassium is low at 2.7. There is some mild acute kidney injury with a creatinine of 1.23. Magnesium is critically low at 0.9. No liver enzyme elevation. Lactic acid level is not elevated making severe sepsis less likely. Procalcitonin level is not elevated. ECG shows a sinus tachycardia, no acute ischemia. Cardiac enzyme testing x1 is not consistent with acute cardiac injury. Chest film does not show pneumonia or CHF. Urinalysis result is still pending. The patient presents with shortness of breath, tachycardia, weakness and what she thinks is dehydration. She had been vomiting. The patient was aggressively managed given her complaints and findings. She was given IV saline 1.5 L. She received IV Phenergan and IV Zofran. She was given IV potassium, IV magnesium. She received IV ertapenem. The antibiotics were given for empiric coverage. The patient is in need of a hospital stay. She has a lung cancer and is on chemotherapy. She is vomiting, she is tachycardic, dehydrated. She has significant chemistry abnormalities. She is quite neutropenic and thrombocytopenic. She cannot tolerate her meds at home. She cannot function at home. I did speak to the patient about her findings, case management has been involved. The on-call hospitalist has been consulted. Past Med/Surg History Medical History Acute kidney injury Acute shoulder pain Now a constant ache - no prescription meds needed Anxiety Chronic venous insufficiency follows with vascular (Dr. Carlson) CKD (chronic kidney disease), stage III COPD with emphysema Dentalgia Depression Hypertension Kidney stones LAD (lymphadenopathy), mediastinal Major depressive disorder, recurrent episode with anxious distress Daughter from OD in 2016 Migraine Nausea & vomiting Neutropenia with fever Nicotine dependence Pancytopenia Polysubstance overdose Hx of 2017 Pulmonary nodule "7 mm RUL nodule, stable 09/25/15 - 09/16/16; repeat 6 mos" Surgical History History of bronchoscopy 10/30/2019 - with EBUS History of cataract surgery 2004 - bilateral History of section 1991 History of colonoscopy unsuccessful (poor bowel prep) History of cystoscopy 2007 - with stent History of dental surgery 02/2019 - Full upper teeth extracted S/P arthroscopy of left knee 1989' S/P arthroscopy of right knee 1989' Family History Grandmother (Maternal) , Passed in 80's of metastatic cancer (unknown primary) No problems noted. Mother , Passed age 93 of natural causes No problems noted. Father , Passed age 97 of natural causes No problems noted. Brother No problems noted. Daughter , Passed age 24 from Over Dose No problems noted. 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 [employer] Other Information That Helps Us Care for You: No Feels Safe at Home: Yes Safety Concerns: Feels Safe At This Time Childhood Exposure to Second-Hand Smoke: No caffeine: Yes (2 cups of coffee/day ) during the past year weight has: remained stable Dental Care, Regularly: Yes Assistive Devices: Denture - Upper Allergies Allergies Allergy/AdvReac Type Severity Reaction Status Date / Time mushroom Allergy Severe anaphylaxis Verified 12/29/19 08:26 Penicillins Allergy Severe anaphylaxis, Verified 12/29/19 08:26 facial & throat swelling acetazolamide Allergy Unknown rash, hives Verified 12/29/19 08:26 mold Allergy Unknown unknown Verified 12/29/19 08:26 reaction sumatriptan AdvReac Unknown flushing, Verified 12/29/19 08:26 heart racing Home Meds Home Medications Medication Instructions Recorded Confirmed aripiprazole 10 mg tablet 10 mg PO HS 09/18/19 01/11/20 ibuprofen [Advil] 400 mg PO Q12H PRN 10/13/19 01/11/20 multivitamin 1 tab PO QAM 11/08/19 01/11/20 hydroxyzine HCl 50 mg PO UD PRN 12/23/19 01/11/20 melatonin 5 mg PO HS PRN 12/23/19 01/11/20 ondansetron HCl [Zofran] 8 mg PO Q8 PRN 12/23/19 01/11/20 prochlorperazine maleate 10 mg PO Q6 PRN 12/23/19 01/11/20 [Compazine] duloxetine 60 mg PO DAILY 01/03/20 01/11/20 olanzapine [Zyprexa] 10 mg PO UD 01/03/20 01/11/20 oxycodone-acetaminophen 1 tab PO Q6 PRN 01/03/20 01/11/20 Previous Rx's Medication Instructions Recorded albuterol sulfate 90 mcg/actuation 2 puff INH Q6H PRN #18 gm 10/23/19 aerosol inhaler umeclidinium 62.5 mcg-vilanterol 1 puffs INH DAILY #60 ea 10/23/19 25 mcg/actuation powdr for inhalation nicotine 14 mg/24 hr daily 1 patch TD DAILY #28 ea 11/12/19 transdermal patch docusate sodium 100 mg PO BID 30 Days #60 cap 12/28/19 magnesium oxide 400 mg PO QAM 15 Days #15 tab 12/28/19 potassium chloride 40 meq PO BID17 15 Days #30 ea 12/28/19 aspirin 81 mg PO QAM 30 Days #30 tab 01/08/20 atorvastatin 40 mg PO HS 30 Days #30 tab 01/08/20 clopidogrel 75 mg PO QAM 16 Days #16 tab 01/08/20 doxycycline hyclate 100 mg PO BID 7 Days #14 cap 01/08/20 Results & Data (ED) Vital Signs Vital Signs - 24 hr 01/11/20 15:32 01/11/20 15:35 01/11/20 15:48 Temperature 37.0 C Temperature Source Oral Pulse Rate 119 H 120 H 124 H Pulse Rate from SpO2 Sensor 120 H 121 H Pulse Rhythm Regular Pulse Strength Normal Respiratory Rate 16 15 20 Respiratory Effort / Characteristics Non-Labored Spontaneous Respiratory Depth Normal Blood Pressure 153/97 H 153/97 H Blood Pressure Mean 121 115 Blood Pressure Position Lying Pulse Oximetry 95 95 95 Oxygen Delivery Method Room Air Room Air Sepsis Recent Fever Within 48 Hours No Sepsis New/Unexplained Change in Mental Status No Sepsis Action Taken by Nursing No Action Required 01/11/20 16:00 01/11/20 16:18 01/11/20 16:30 Temperature Temperature Source Pulse Rate 121 H 108 H 102 H Pulse Rate from SpO2 Sensor 121 H 108 H 103 H Pulse Rhythm Pulse Strength Respiratory Rate 21 16 17 Respiratory Effort / Characteristics Respiratory Depth Blood Pressure 139/95 139/95 Blood Pressure Mean 111 111 Blood Pressure Position Pulse Oximetry 100 99 100 Oxygen Delivery Method Sepsis Recent Fever Within 48 Hours Sepsis New/Unexplained Change in Mental Status Sepsis Action Taken by Nursing 01/11/20 17:00 Temperature Temperature Source Pulse Rate 117 H Pulse Rate from SpO2 Sensor Pulse Rhythm Pulse Strength Respiratory Rate 23 Respiratory Effort / Characteristics Respiratory Depth Blood Pressure Blood Pressure Mean Blood Pressure Position Pulse Oximetry Oxygen Delivery Method Sepsis Recent Fever Within 48 Hours Sepsis New/Unexplained Change in Mental Status Sepsis Action Taken by Usp Medications Current Medication List: was personally reviewed by me Laboratory Data Attestation: I reviewed the patient's lab results. Result diagrams: 01/11/20 15:41 01/11/20 15:41 Lab Results 01/11/20 01/11/20 01/11/20 Range/Units 15:41 15:41 15:41 WBC 0.34 L* (4.8-10.8) K/uL RBC 3.62 L (4.2-5.4) M/uL Hgb 10.2 L (12.0-16.0) g/dL Hct 30.4 L (37-47) % MCV 84.0 (80-100) fL MCH 28.2 (25-34) pg MCHC 33.6 (32-36) g/dL RDW Std Deviation 44.6 (36.4-46.3) fL RDW Coeff of Anjelica 14.4 (11.5-14.5) % Plt Count 19 L* (130-400) K/uL Immature Gran % (Auto) Cancelled Neut % (Auto) Cancelled Lymph % (Auto) Cancelled [place] % (Auto) Cancelled Eos % (Auto) Cancelled Baso % (Auto) Cancelled Neut # (Auto) Cancelled Lymph # (Auto) Cancelled [place] # (Auto) Cancelled Eos # (Auto) Cancelled Baso # (Auto) Cancelled Immature Gran # (Auto) Cancelled Neutrophils % (Manual) Cancelled Band Neutrophils % Cancelled Lymphocytes % (Manual) Cancelled Prolymphocyte % Cancelled Reactive Lymphs % (Man) Cancelled Monocytes % (Manual) Cancelled Eosinophils % (Manual) Cancelled Basophils % (Manual) Cancelled Metamyelocytes % (Man) Cancelled Myelocytes % (Man) Cancelled Promyelocytes % (Man) Cancelled Blast Cells % (Manual) Cancelled Plasma Cell % (Manual) Cancelled Other Cells % Cancelled Nucleated RBC % Cancelled Neutrophils # (Manual) Cancelled Band Neutrophils # Cancelled Total Absolute Neuts Cancelled Lymphocytes # (Manual) Cancelled Prolymphocyte # Cancelled Reactive Lymphs # Cancelled Total Abs Lymphocytes Cancelled Monocytes # (Manual) Cancelled Eosinophils # (Manual) Cancelled Basophils # (Manual) Cancelled Metamyelocytes # (Man) Cancelled Myelocytes # (Manual) Cancelled Promyelocytes # (Man) Cancelled Blast Cells # (Man) Cancelled Plasma Cell # (Manual) Cancelled Other Cells # Cancelled Nucleated RBCs # (Man) Cancelled Hypersegmented Neuts Cancelled Hyposegmented Neuts Cancelled Hypogranular Neuts Cancelled Large Granular Lymphs Cancelled # Lrg Granular Lymphs Cancelled Hairy Cells Cancelled Smudge Cells Cancelled Toxic Granulation Cancelled Toxic Vacuolation Cancelled Dohle Bodies Cancelled [place] Rods Cancelled Platelet Estimate SIGNIFIC DECREASED (Normal) Hypogranular Platelets Cancelled Clumped Platelets Cancelled Giant Platelets Cancelled Platelet Satelliting Cancelled RBC Morphology Cancelled Polychromasia Cancelled Hypochromasia Cancelled Poikilocytosis Cancelled Basophilic Stippling Cancelled Anisocytosis Cancelled Microcytosis Cancelled Macrocytosis Cancelled Spherocytes Cancelled Pappenheimer Bodies Cancelled Sickle Cells Cancelled Target Cells Cancelled Tear Drop Cells Cancelled Ovalocytes Cancelled Stomatocytes Cancelled [place] Bodies Cancelled Echinocytes Cancelled Acanthocytes (Spur) Cancelled Rouleaux Cancelled RBC Agglutinates Cancelled Schistocytes Cancelled RBC Morph Comment Cancelled Sezary Cell Cancelled PT 15.2 H (9.0-12.0) Seconds INR 1.5 H (0.9-1.1) APTT 28.0 (21.0-31.0) Seconds PTT Ratio 1.0 Sodium 136 (136-145) mmol/L Potassium 2.7 L (3.5-5.1) mmol/L Chloride 96 L (98-107) mmol/L Carbon Dioxide 29 (21-32) mmol/L Anion Gap 10.0 (3-11) BUN 18 (7-18) mg/dl Creatinine 1.23 H (0.6-1.2) mg/dl Est Cr Clr Drug Dosing Not Reportable Est GFR ( Amer) 53.7 Est GFR (Non-Af Amer) 46.3 BUN/Creatinine Ratio 14.6 (10-20) Glucose 133 H (70-99) mg/dl Lactate (0.4-2.0) mmol/L Calcium 8.8 (8.5-10.1) mg/dl Phosphorus (2.5-4.9) mg/dl Magnesium 0.9 L* (1.8-2.4) mg/dl Total Bilirubin 0.5 (0.2-1) mg/dl AST 16 (15-37) U/L ALT 26 (12-78) U/L Alkaline Phosphatase 105 (45-117) U/L Troponin I < 0.015 (0-0.045) ng/ml Total Protein 7.9 (6.4-8.2) gm/dl Albumin 2.9 L (3.4-5.0) gm/dl Globulin 4.9 H (2.5-4.0) gm/dl Albumin/Globulin Ratio 0.6 L (0.9-2) Procalcitonin (0-0.5) ng/ml 01/11/20 01/11/20 01/11/20 Range/Units 15:41 15:41 15:41 WBC (4.8-10.8) K/uL RBC (4.2-5.4) M/uL Hgb (12.0-16.0) g/dL Hct (37-47) % MCV (80-100) fL MCH (25-34) pg MCHC (32-36) g/dL RDW Std Deviation (36.4-46.3) fL RDW Coeff of Anjelica (11.5-14.5) % Plt Count (130-400) K/uL Immature Gran % (Auto) Neut % (Auto) Lymph % (Auto) [place] % (Auto) Eos % (Auto) Baso % (Auto) Neut # (Auto) Lymph # (Auto) [place] # (Auto) Eos # (Auto) Baso # (Auto) Immature Gran # (Auto) Neutrophils % (Manual) Band Neutrophils % Lymphocytes % (Manual) Prolymphocyte % Reactive Lymphs % (Man) Monocytes % (Manual) Eosinophils % (Manual) Basophils % (Manual) Metamyelocytes % (Man) Myelocytes % (Man) Promyelocytes % (Man) Blast Cells % (Manual) Plasma Cell % (Manual) Other Cells % Nucleated RBC % Neutrophils # (Manual) Band Neutrophils # Total Absolute Neuts Lymphocytes # (Manual) Prolymphocyte # Reactive Lymphs # Total Abs Lymphocytes Monocytes # (Manual) Eosinophils # (Manual) Basophils # (Manual) Metamyelocytes # (Man) Myelocytes # (Manual) Promyelocytes # (Man) Blast Cells # (Man) Plasma Cell # (Manual) Other Cells # Nucleated RBCs # (Man) Hypersegmented Neuts Hyposegmented Neuts Hypogranular Neuts Large Granular Lymphs # Lrg Granular Lymphs Hairy Cells Smudge Cells Toxic Granulation Toxic Vacuolation Dohle Bodies Soledad Rods Platelet Estimate (Normal) Hypogranular Platelets Clumped Platelets Giant Platelets Platelet Satelliting RBC Morphology Polychromasia Hypochromasia Poikilocytosis Basophilic Stippling Anisocytosis Microcytosis Macrocytosis Spherocytes Pappenheimer Bodies Sickle Cells Target Cells Tear Drop Cells Ovalocytes Stomatocytes [place] Bodies Echinocytes Acanthocytes (Spur) Rouleaux RBC Agglutinates Schistocytes RBC Morph Comment Sezary Cell PT (9.0-12.0) Seconds INR (0.9-1.1) APTT (21.0-31.0) Seconds PTT Ratio Sodium (136-145) mmol/L Potassium (3.5-5.1) mmol/L Chloride (98-107) mmol/L Carbon Dioxide (21-32) mmol/L Anion Gap (3-11) BUN (7-18) mg/dl Creatinine (0.6-1.2) mg/dl Est Cr Clr Drug Dosing Est GFR ( Amer) Est GFR (Non-Af Amer) BUN/Creatinine Ratio (10-20) Glucose (70-99) mg/dl Lactate 1.8 (0.4-2.0) mmol/L Calcium (8.5-10.1) mg/dl Phosphorus 3.0 (2.5-4.9) mg/dl Magnesium (1.8-2.4) mg/dl Total Bilirubin (0.2-1) mg/dl AST (15-37) U/L ALT (12-78) U/L Alkaline Phosphatase (45-117) U/L Troponin I (0-0.045) ng/ml Total Protein (6.4-8.2) gm/dl Albumin (3.4-5.0) gm/dl Globulin (2.5-4.0) gm/dl Albumin/Globulin Ratio (0.9-2) Procalcitonin < 0.05 (0-0.5) ng/ml Administered Medications Hydromorphone HCl (Hydromorphone Inj 0.5 Mg/0.5 Ml Syr) 0.5 mg IV Q12H PRN PRN Reason: severe pain Stop: 01/25/20 17:06 Last Admin: 01/11/20 19:19 Dose: 0.5 mg Documented by: [id number] Discontinued Medications Sodium Chloride (Nss 1000ml) 1,000 mls @ 999 mls/hr IV .Q1H1M LC Stop: 01/11/20 17:00 Last Infusion: 01/11/20 17:10 Dose: 0 mls/hr Documented by: [id number] Admin: 01/11/20 16:09 Dose: 999 mls/hr Documented by: [id number] Ertapenem (Invanz) 10 mls @ 2 mls/min IV NOW STA Stop: 01/11/20 15:52 Last Admin: 01/11/20 17:13 Dose: 2 mls/min Documented by: [id number] Promethazine HCl (Phenergan) 12.5 mg in 50.5 mls @ 202 mls/hr IV NOW STA Stop: 01/11/20 16:02 Last Infusion: 01/11/20 16:09 Dose: 0 mls/hr Documented by: [id number] Admin: 01/11/20 16:08 Dose: 202 mls/hr Documented by: [id number] Magnesium Sulfate/Dextrose (Magnesium Sulfate / D5w) 1 gm in 100 mls @ 100 mls/hr IV Q1H LC Stop: 01/11/20 18:21 Last Admin: 01/11/20 17:15 Dose: 100 mls/hr Documented by: [id number] Potassium Chloride (K Heladio / Wtr) 10 meq in 100 mls @ 100 mls/hr IV ONE ONE Stop: 01/11/20 17:21 Last Admin: 01/11/20 17:22 Dose: 100 mls/hr Documented by: [id number] Sodium Chloride (Nss 1000ml) 500 mls @ 999 mls/hr IV .Q31M ONE Stop: 01/11/20 16:53 Last Admin: 01/11/20 17:15 Dose: 999 mls/hr Documented by: [id number] Multivitamins 10 ml/ Thiamine HCl 100 mg/ Folic Acid 1 mg/Sodium Chloride 1,011.2 mls @ 1,011.2 mls/hr IV .Q1H ONE Stop: 01/11/20 18:29 Last Admin: 01/11/20 19:25 Dose: 1,011.2 mls/hr Documented by: [id number] Ondansetron HCl (Ondansetron Inj 2 Mg/Ml 2 Ml Vial) 4 mg IV NOW STA Stop: 01/11/20 15:49 Last Admin: 01/11/20 16:08 Dose: 4 mg Documented by: [id number] Imaging Data Radiologist's Impression: XR chest 1V portable CLINICAL HISTORY: SEPSIS COMPARISON STUDY: 01/03/2020 FINDINGS: There is a right-sided A-Port catheter. The cardiac and mediastinal contours remain stable. There is no failure. There is no focal pulmonary consolidation. There are no pleural effusions. There is minor basilar residual thickening.[ IMPRESSION: No active disease in the chest. Blood Pressure Blood Pressure Findings: Elevated blood pressure Blood Pressure Disposition: further management by hospitalist Discharge Plan Visit Data Chief Complaint: Illness Stated Complaint: SOB, NAUSEA, VOMITING ED Provider: Cruz Weiss Discharge Problem: Weakness, Hypomagnesemia, Vomiting, Acute dehydration, Neutropenia, Thrombocytopenia Patient Disposition: Admitted As Inpatient Condition: Fair Discharge Instructions Interventions: ED Discharge Assessment Last Done: 01/11/20 17:43 Discharge Problem: Vomiting Qualifiers: Vomiting type: unspecified Vomiting Intractability: non-intractable Nausea presence: with nausea Qualified Code(s): R11.2 - Nausea with vomiting, unspecified Neutropenia Qualifiers: Neutropenia type: secondary to cancer chemotherapy Qualified Code(s): D70.1 - Agranulocytosis secondary to cancer chemotherapy
[2020-01-11] MEDS ORDERED: SODIUM CHLORIDE 0.9% 1000ML 1,000 ML IV SCH (16:00)
[2020-01-11 16:11] LABS: Hematocrit (blood only) 30.4 % (37-47); Hemoglobin 10.2 g/dL (12.0-16.0); INR 1.5 (0.9-1.1); Mean Corpuscular Hemoglobin 28.2 pg (25-34); Mean Corpuscular Hgb Conc 33.6 g/dL (32-36); Platelet Count 19 K/uL (130-400); Prothrombin Time 15.2 Seconds (9.0-12.0); RDW Coefficient of Variation 14.4 % (11.5-14.5); RDW Standard Deviation 44.6 fL (36.4-46.3); Red Blood Count 3.62 M/uL (4.2-5.4); White Blood Count 0.34 K/uL (4.8-10.8)
[2020-01-11 16:15] LABS: Alanine Aminotransferase 26 U/L (12-78); Albumin Globulin Ratio 0.6 (0.9-2); Albumin Level 2.9 gm/dl (3.4-5.0); Alkaline Phosphatase 105 U/L (45-117); Aspartate Aminotransferase 16 U/L (15-37); BUN Creatinine Ratio 14.6 (10-20); Bilirubin,Total 0.5 mg/dl (0.2-1); Blood Urea Nitrogen 18 mg/dl (7-18); Calcium 8.8 mg/dl (8.5-10.1); Carbon Dioxide 29 mmol/L (21-32); Chloride 96 mmol/L (98-107); Est GFR (African American) 53.7; Est GFR (Non-African American) 46.3; Globulin 4.9 gm/dl (2.5-4.0); Glucose 133 mg/dl (70-99); Potassium 2.7 mmol/L (3.5-5.1); Sodium 136 mmol/L (136-145); Total Protein 7.9 gm/dl (6.4-8.2); Troponin I < 0.015 ng/ml (0-0.045)
[2020-01-11 16:20] LABS: Magnesium 0.9 mg/dl (1.8-2.4)
[2020-01-11] MEDS ORDERED: POTASSIUM CHLORIDE / WTR 10 MEQ/100 ML PLCT IV ONE (16:22)
[2020-01-11] MEDS ORDERED: SODIUM CHLORIDE 0.9% 1000ML 500 ML IV ONE (16:23)
--- NOTE | 2020-01-11 16:35 | XRay Report ---
XR chest 1V portable CLINICAL HISTORY: SEPSIS COMPARISON STUDY: 01/03/2020 FINDINGS: There is a right-sided A-Port catheter. The cardiac and mediastinal contours remain stable. There is no failure. There is no focal pulmonary consolidation. There are no pleural effusions. Ther e is minor basilar residual thickening.[ IMPRESSION: No active disease in the chest. ACT 112: Negative or not required by law. Electronically signed by: Derek Vasquez M.D. 01/11/2020 4:34 PM
[2020-01-11 16:43] LABS: Platelet Estimate SIGNIFIC DECREASED (Normal)
[2020-01-11] MEDS ORDERED: HYDROmorphone INJ 0.5 MG/0.5 ML SYR IV PRN (17:07)
[2020-01-11] MEDS ORDERED: ACETAMINOPHEN 1,000 MG/100 ML VIAL IV PRN (17:07)
[2020-01-11] MEDS ORDERED: CEFEPIME CONSULT ACTIVE SCH (17:09)
[2020-01-11] MEDS: MAGNESIUM SULFATE / D5W 1 GM/100 ML BAG IV SCH ×2 (17:15→20:38)
--- NOTE | 2020-01-11 17:15 | History & Physical Report ---
Date of Service January 11, 2020 Assessment & Plan (1) Small cell lung cancer in adult: -This is a patient with small cell lung cancer on chemotherapy and radiation treatment and history of nausea and vomiting with recent [facility] hospital discharge on 01/08/2020 after admission for stroke with inpatient and outpatient therapy of anti-platelets -Patient returns to hospital ED on 01/11/2020 again with intractable nausea and vomiting, associated electrolyte deficiencies of hypomagnesemia and hypokalemia, again neutropenic, but this time also acutely thrombocytopenic with serum platelets of 19K -neutropenia likely related to cancer with history of chemotherapy and radiation treatments -was given IV Ertapenem, ED physician does not find a clear source suggestive of infection but given neutropenia, patient to continue empiric antibiotics for now -patient consented for platelet transfusions by hospitalist (2) Intractable nausea and vomiting: with dehydration, hypokalemia, hypomagnesemia -patient known to have problems with nausea and vomiting on previous admissions and has been Zofran and Compazine at home -prn IV Phenergan -minimize oral medications for now (3) Acute dehydration: Acute Kidney disease on Chronic Kidney Disease stage 3 -from poor appetite and fluid losses from dehydration -IV fluids ordered in the ED, continue IV fluids as dextrose 1/2 normal saline for now for hydration and calories, monitor the creatinine (4) Hypokalemia: -electrolyte deficits due to GI losses; admission serum potassium 2.7 -give IV potassium and try to target serum potassium above 3.3 to 4 -replete serum magnesium (5) Hypomagnesemia: -electrolyte deficits due to GI losses; admission serum magnesium 0.9 -give IV magnesium and try to target serum magnesium above 1.5 to 2 (6) Neutropenia: -neutropenia likely related to cancer with history of chemotherapy and radiation treatments -was given IV Ertapenem, ED physician does not find a clear source suggestive of infection but given neutropenia, patient to continue empiric antibiotics for now -patient will be transitioned to IV Cefepime q12 hours empirically given she did not have any drug reaction to this medication (penicillin allergy) on a previous hospitalization when neutropenic (7) Thrombocytopenia: -the acute thrombocytopenia is a new issue, patient denies any history of blood transfusions in the past -admission platelet 19,000 -patient signed transfusion consent form and will have 2 units of platelets -trend the CBC DVT prophylaxis: SCDs for now History of CVA, LEFT CEREBRAL HEMISPHERE, 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 on last hospitalization -Patient was discharged on 01/08/2020 after that admission for neurological deficits with speech -given acute thrombocytopenia labs on 01/11/2020, patient does not appear to be a good candidate for anti-platelets despite history of stroke -her speech appears baseline -if nausea and vomiting symptoms are ameliorated, patient can be evaluated for dysphagia screening, and speech and swallow evaluations, can allow for clear liquids for now with aspiration precautions -PT/OT evaluations Conditional Code: allows for chest compressions and defibrillation, no intubation of mechanical ventilation History of Present Illness -This is a patient with small cell lung cancer on chemotherapy and radiation treatment and history of nausea and vomiting with recent [facility] hospital discharge on 01/08/2020 after admission for stroke with inpatient and outpatient therapy of anti-platelets -Patient returns to hospital ED on 01/11/2020 again with intractable nausea and vomiting, associated electrolyte deficiencies of hypomagnesemia and hypokalemia, again neutropenic, but this time also acutely thrombocytopenic with serum platelets of 19K -neutropenia likely related to cancer with history of chemotherapy and radiation treatments -was given IV Ertapenem, ED physician does not find a clear source suggestive of infection but given neutropenia, patient to continue empiric antibiotics for now -patient consented for platelet transfusions by hospitalist Review of symptoms was limited by patient's nausea discomforts but patient denies being in acute pain other than discomforts of chest from retching and vomiting. She denies problems with urination or with bowel movements. she reports her speech deficits from previous stroke admission are all resolved. She denies any motor deficits Primary Care Provider: Rosa Crooks, Allergies Allergy/AdvReac Type Severity Reaction Status Date / Time mushroom Allergy Severe anaphylaxis Verified 12/29/19 08:26 Penicillins Allergy Severe anaphylaxis, Verified 12/29/19 08:26 facial & throat swelling acetazolamide Allergy Unknown rash, hives Verified 12/29/19 08:26 mold Allergy Unknown unknown Verified 12/29/19 08:26 reaction sumatriptan AdvReac Unknown flushing, Verified 12/29/19 08:26 heart racing Home Medications Home Medications Medication Instructions Recorded Confirmed Type aripiprazole 10 mg tablet 10 mg PO HS 09/18/19 01/11/20 History ibuprofen [Advil] 400 mg PO Q12H PRN 10/13/19 01/11/20 History albuterol sulfate 90 mcg/actuation 2 puff INH Q6H PRN #18 gm 10/23/19 01/11/20 Rx aerosol inhaler umeclidinium 62.5 mcg-vilanterol 1 puffs INH DAILY #60 ea 10/23/19 01/11/20 Rx 25 mcg/actuation powdr for inhalation multivitamin 1 tab PO QAM 11/08/19 01/11/20 History nicotine 14 mg/24 hr daily 1 patch TD DAILY #28 ea 11/12/19 01/11/20 Rx transdermal patch hydroxyzine HCl 50 mg PO UD PRN 12/23/19 01/11/20 History melatonin 5 mg PO HS PRN 12/23/19 01/11/20 History ondansetron HCl [Zofran] 8 mg PO Q8 PRN 12/23/19 01/11/20 History prochlorperazine maleate 10 mg PO Q6 PRN 12/23/19 01/11/20 History [Compazine] docusate sodium 100 mg PO BID 30 Days #60 cap 12/28/19 01/11/20 Rx magnesium oxide 400 mg PO QAM 15 Days #15 tab 12/28/19 01/11/20 Rx potassium chloride 40 meq PO BID17 15 Days #30 ea 12/28/19 01/11/20 Rx duloxetine 60 mg PO DAILY 01/03/20 01/11/20 History olanzapine [Zyprexa] 10 mg PO UD 01/03/20 01/11/20 History oxycodone-acetaminophen 1 tab PO Q6 PRN 01/03/20 01/11/20 History aspirin 81 mg PO QAM 30 Days #30 tab 01/08/20 01/11/20 Rx atorvastatin 40 mg PO HS 30 Days #30 tab 01/08/20 01/11/20 Rx clopidogrel 75 mg PO QAM 16 Days #16 tab 01/08/20 01/11/20 Rx doxycycline hyclate 100 mg PO BID 7 Days #14 cap 01/08/20 01/11/20 Rx Past Med/Surg History Medical History Acute kidney injury Acute shoulder pain Now a constant ache - no prescription meds needed Anxiety Chronic venous insufficiency follows with vascular (Dr. Carlson) CKD (chronic kidney disease), stage III COPD with emphysema Dentalgia Depression Hypertension Kidney stones LAD (lymphadenopathy), mediastinal Major depressive disorder, recurrent episode with anxious distress Daughter from OD in 2016 Migraine Nausea & vomiting Neutropenia with fever Nicotine dependence Pancytopenia Polysubstance overdose Hx of 2017 Pulmonary nodule "7 mm RUL nodule, stable 09/25/15 - 09/16/16; repeat 6 mos" Surgical History History of bronchoscopy 10/30/2019 - with EBUS History of cataract surgery 2004 - bilateral History of section 1991 History of colonoscopy unsuccessful (poor bowel prep) History of cystoscopy 2007 - with stent History of dental surgery 02/2019 - Full upper teeth extracted S/P arthroscopy of left knee S/P arthroscopy of right knee Family History Grandmother (Maternal) , Passed in 80's of metastatic cancer (unknown primary) No problems noted. Mother , Passed age 93 of natural causes No problems noted. Father , Passed age 97 of natural causes No problems noted. Brother No problems noted. Daughter , Passed age 24 from Over Dose No problems noted. 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 [employer] Feels Safe at Home: Yes Childhood Exposure to Second-Hand Smoke: No caffeine: Yes (2 cups of coffee/day ) during the past year weight has: remained stable Dental Care, Regularly: Yes Assistive Devices: None Review of Systems Review of Systems: All systems reviewed & are unremarkable except as noted in Subjective Physical Exam Constitutional: nausea, vomiting, retching ENMT: external ear and nose normal, oropharynx normal Neck: normal visual inspection Respiratory: normal respiratory effort, lungs clear to auscultation Cardiovascular: Rate/Rhythm: + tachycardic Gastrointestinal (Abdomen): normal bowel sounds, soft, nontender, no hepatosplenomegaly Musculoskeletal: Head/Neck/Chest: normocephalic and head atraumatic Neurologic: PERRL, EOMI, accommodation nl, no face palsy, no dysarthria moves all extremities Psychiatric: A+Ox3, euthymic affect Results & Data Results & Data ([facility]) Vital Signs (Past 12 Hours) Vital Signs Temp Pulse Resp BP Pulse Ox 01/11/20 16:30 102 H 17 100 01/11/20 16:18 108 H 16 139/95 99 01/11/20 16:00 121 H 21 139/95 100 01/11/20 15:48 37.0 C 124 H 20 153/97 H 95 01/11/20 15:35 120 H 15 95 01/11/20 15:32 119 H 16 153/97 H 95 Code Status & VTE Plan VTE Prophylaxis Plan VTE Prophylaxis will be ordered: Yes (1) Neutropenia Neutropenia type: secondary to cancer chemotherapy Qualified Code(s): D70.1 - Agranulocytosis secondary to cancer chemotherapy; T45.1X5A - Adverse effect of antineoplastic and immunosuppressive drugs, initial encounter
[2020-01-11] MEDS ORDERED: MULTI-VITAMIN INFUSION 10 ML, THIAMINE HCL 100 MG, FOLIC ACID 1 MG in SODIUM CHLORIDE 0... IV ONE (17:30)
[2020-01-11] MEDS ORDERED: ALBUT/IPRATROP 3MG/0.5MG NEB 3 ML VIAL NEB PRN (18:53)
[2020-01-11] MEDS ORDERED: PATIENT'S HEIGHT AND/OR WEIGHT NEEDED SCH (19:00)
[2020-01-11] MEDS ORDERED: CEFEPIME CONSULT ACTIVE PRN (19:30)
[2020-01-11] MEDS: D5W AND 1/2NSS 1,000 ML IV SCH (20:38)
[2020-01-11] MEDS: CEFEPIME 2,000 MG in SYRINGE 0 ML IV SCH (20:38)
[2020-01-12 00:50] LABS: Hematocrit (blood only) 21.8 % (37-47); Hemoglobin 7.3 g/dL (12.0-16.0); Mean Corpuscular Hemoglobin 28.5 pg (25-34); Mean Corpuscular Hgb Conc 33.5 g/dL (32-36); Mean Corpuscular Volume 85.2 fL (80-100); Platelet Count 45 K/uL (130-400); RDW Coefficient of Variation 14.6 % (11.5-14.5); RDW Standard Deviation 45.8 fL (36.4-46.3); Red Blood Count 2.56 M/uL (4.2-5.4); White Blood Count 0.36 K/uL (4.8-10.8)
[2020-01-12] MEDS: HYDROmorphone INJ 0.5 MG/0.5 ML SYR IV PRN ×6 (00:59→21:31)
[2020-01-12 01:12] LABS: Albumin Globulin Ratio 0.6 (0.9-2); Albumin Level 2.2 gm/dl (3.4-5.0); BUN Creatinine Ratio 16.3 (10-20); Bilirubin,Total 0.2 mg/dl (0.2-1); Creatinine Clr Calc Pharmacy 65.3 ml/min; Est GFR (African American) 79.4; Est GFR (Non-African American) 68.5; Globulin 3.6 gm/dl (2.5-4.0); Magnesium 1.6 mg/dl (1.8-2.4); Phosphorus 2.5 mg/dl (2.5-4.9); Potassium 2.7 mmol/L (3.5-5.1); Total Protein 5.8 gm/dl (6.4-8.2)
[2020-01-12] MEDS: NICOTINE 14 MG/24 HR PATCH TD SCH ×2 (01:22→08:40)
[2020-01-12] MEDS: PROMETHAZINE HCL 6.25 MG in SODIUM CHLORIDE 0.9% 50 ML IV PRN (04:11)
[2020-01-12] MEDS ORDERED: CALCIUM GLUCONATE 10% 1,000 MG in SODIUM CHLORIDE 0.9% 50 ML IV STA (07:37)
[2020-01-12] MEDS ORDERED: POTASSIUM CHLORIDE PWD 20 MEQ PACK PO ONE (07:38)
[2020-01-12] MEDS: POTASSIUM CHLORIDE / WTR 10 MEQ/100 ML PLCT IV SCH ×4 (08:33→12:11)
[2020-01-12] MEDS: MAGNESIUM SULFATE / D5W 1 GM/100 ML BAG IV SCH ×2 (08:40→11:09)
[2020-01-12] MEDS: UMECLIDINIUM/VILANTEROL 62.5/25MCG 7 PUFFS/INHALER INH SCH (08:44)
[2020-01-12] MEDS ORDERED: NICOTINE TD SCH (09:00)
--- NOTE | 2020-01-12 10:27 | Hospitalist Progress Note ---
Date of Service January 12, 2020 Assessment & Plan (1) Intractable nausea and vomiting: With dehydration, hypokalemia, hypomagnesemia Continue promethazine Optimize nausea control Full liquid diet and advance as tolerated Continue IVF (2) Acute dehydration: Acute Kidney disease on Chronic Kidney Disease stage 3 -from poor appetite and fluid losses from dehydration MARIA R resolved with hydration Continue IVF for now Encouraged to continue po. Will do liquid diet for now and advance as tolerated (3) Hypokalemia: Electrolyte deficits due to GI losses and poor oral intake Admission serum potassium 2.7 Still 2.7 this AM Give four 10mEq KCL q1h IV since patient has poor oral intake Replete magnesium (4) Hypomagnesemia: Mag was 0.9 on admission 1.6 this AM. continue repletion (5) Small cell lung cancer in adult: Discussed with Dr Anibal Hebert He recommend to continue radiation therapy if able, to continue cefepime for now while inpatient for prophylaxis for chemotherapy induced neutropenia, given history of neutropenic fevers Rad onc consult. Spoke with Radiation oncologist, Dr Hebert. Can resume radiation therapy tomorrow if possible (6) Pancytopenia: (7) Neutropenia: Was given IV Ertapenem, ED physician does not find a clear source suggestive of infection but given neutropenia, patient to continue empiric antibiotics for now No fevers. Continue cefepime for now and monitor CBC w/diff (8) Thrombocytopenia: Admission platelet 19,000 Got 1 platelet. Count is 45K this AM. 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 Discussed this with patient and she was ok with it Conditional Code: allows for chest compressions and defibrillation, no intubation of mechanical ventilation Admission and Anticipated Discharge Date Admission Date: January 11, 2020 Subjective Patient seen and examined. Reports nausea this AM which was controlled with medications Last vomiting was yesterday. Stated she is able to keep down liquid foods but vomits more solid food shortly after eating Denied any dysphagia or odynophagia Denied any abd pain, diarrhea Denied any dysuria, frequency, urgency, hematuria Denied melena, hematochezia, epistaxis Reports mild chest pain which she attributed to her radiation. Physical Exam Constitutional: + well hydrated; no acute distress Eyes: + anicteric sclerae and PERRL Pale conjunctiva ENMT: external ear and nose normal, oropharynx normal Respiratory: normal respiratory effort, lungs clear to auscultation Cardiovascular: RRR, no murmur, no edema Chest (Breasts): Additional Comments: Mild central chest wall tenderness Gastrointestinal (Abdomen): normal bowel sounds, soft, nontender, no hepatosplenomegaly Neurologic: PERRL, EOMI, accommodation nl, no face palsy, no dysarthria Psychiatric: A+Ox3, euthymic affect Results & Data Results & Data ([facility]) Vital Signs (Past 12 Hours) Vital Signs Temp Pulse Pulse Resp BP BP BP 01/12/20 07:16 36.3 C L 95 H 17 91/65 L 01/12/20 03:53 36.6 C 95 H 21 99/68 L 01/12/20 00:45 36.7 C 92 H 16 132/76 01/12/20 00:10 36.6 C 100 H 16 117/76 01/12/20 00:00 97 H 01/11/20 23:45 36.7 C 93 H 16 118/75 01/11/20 23:15 36.6 C 94 H 16 125/78 01/11/20 23:00 36.6 C 97 H 16 125/76 01/11/20 22:49 99 H 132/79 01/11/20 22:41 36.6 C 103 H 16 126/75 Pulse Ox 01/12/20 07:16 98 01/12/20 03:53 93 01/12/20 00:45 92 01/12/20 00:10 96 01/12/20 00:00 01/11/20 23:45 91 01/11/20 23:15 93 01/11/20 23:00 94 01/11/20 22:49 01/11/20 22:41 94 Laboratory Results Laboratory Results - last 24 hr 01/11/20 01/11/20 01/11/20 15:41 15:41 15:41 WBC 0.34 L* RBC 3.62 L Hgb 10.2 L Hct 30.4 L MCV 84.0 MCH 28.2 MCHC 33.6 RDW Std Deviation 44.6 RDW Coeff of Anjelica 14.4 Plt Count 19 L* MPV Immature Gran % (Auto) Cancelled Neut % (Auto) Cancelled Lymph % (Auto) Cancelled Guthrie % (Auto) Cancelled Eos % (Auto) Cancelled Baso % (Auto) Cancelled Neut # (Auto) Cancelled Lymph # (Auto) Cancelled Guthrie # (Auto) Cancelled Eos # (Auto) Cancelled Baso # (Auto) Cancelled Immature Gran # (Auto) Cancelled Neutrophils % (Manual) Cancelled Band Neutrophils % Cancelled Lymphocytes % (Manual) Cancelled Prolymphocyte % Cancelled Reactive Lymphs % (Man) Cancelled Monocytes % (Manual) Cancelled Eosinophils % (Manual) Cancelled Basophils % (Manual) Cancelled Metamyelocytes % (Man) Cancelled Myelocytes % (Man) Cancelled Promyelocytes % (Man) Cancelled Blast Cells % (Manual) Cancelled Plasma Cell % (Manual) Cancelled Other Cells % Cancelled Nucleated RBC % Cancelled Neutrophils # (Manual) Cancelled Band Neutrophils # Cancelled Total Absolute Neuts Cancelled Lymphocytes # (Manual) Cancelled Prolymphocyte # Cancelled Reactive Lymphs # Cancelled Total Abs Lymphocytes Cancelled Monocytes # (Manual) Cancelled Eosinophils # (Manual) Cancelled Basophils # (Manual) Cancelled Metamyelocytes # (Man) Cancelled Myelocytes # (Manual) Cancelled Promyelocytes # (Man) Cancelled Blast Cells # (Man) Cancelled Plasma Cell # (Manual) Cancelled Other Cells # Cancelled Nucleated RBCs # (Man) Cancelled Hypersegmented Neuts Cancelled Hyposegmented Neuts Cancelled Hypogranular Neuts Cancelled Large Granular Lymphs Cancelled # Lrg Granular Lymphs Cancelled Hairy Cells Cancelled Smudge Cells Cancelled Toxic Granulation Cancelled Toxic Vacuolation Cancelled Dohle Bodies Cancelled Soledad Rods Cancelled Platelet Estimate SIGNIFIC DECREASED Hypogranular Platelets Cancelled Clumped Platelets Cancelled Giant Platelets Cancelled Platelet Satelliting Cancelled RBC Morphology Cancelled Polychromasia Cancelled Hypochromasia Cancelled Poikilocytosis Cancelled Basophilic Stippling Cancelled Anisocytosis Cancelled Microcytosis Cancelled Macrocytosis Cancelled Spherocytes Cancelled Pappenheimer Bodies Cancelled Sickle Cells Cancelled Target Cells Cancelled Tear Drop Cells Cancelled Ovalocytes Cancelled Stomatocytes Cancelled Patten-Leith-Hatfield Bodies Cancelled Echinocytes Cancelled Acanthocytes (Spur) Cancelled Rouleaux Cancelled RBC Agglutinates Cancelled Schistocytes Cancelled RBC Morph Comment Cancelled Sezary Cell Cancelled PT 15.2 H INR 1.5 H APTT 28.0 PTT Ratio 1.0 Sodium 136 Potassium 2.7 L Chloride 96 L Carbon Dioxide 29 Anion Gap 10.0 BUN 18 Creatinine 1.23 H Est Cr Clr Drug Dosing Not Reportable Est GFR ( Amer) 53.7 Est GFR (Non-Af Amer) 46.3 BUN/Creatinine Ratio 14.6 Glucose 133 H Lactate Calcium 8.8 Phosphorus Magnesium 0.9 L* Total Bilirubin 0.5 AST 16 ALT 26 Alkaline Phosphatase 105 Troponin I < 0.015 Total Protein 7.9 Albumin 2.9 L Globulin 4.9 H Albumin/Globulin Ratio 0.6 L Procalcitonin Urine Color Urine Appearance Urine pH Ur Specific Ponce Urine Protein Urine Glucose (UA) Urine Ketones Urine Blood Urine Nitrite Urine Bilirubin Urine Urobilinogen Ur Leukocyte Esterase Urine WBC (Auto) Urine RBC (Auto) U Hyaline Cast (Auto) U Epithel Cells (Auto) Urine Bacteria (Auto) Blood Type Antibody Screen 01/11/20 01/11/20 01/11/20 15:41 15:41 15:41 WBC RBC Hgb Hct MCV MCH MCHC RDW Std Deviation RDW Coeff of Anjelica Plt Count MPV Immature Gran % (Auto) Neut % (Auto) Lymph % (Auto) Guthrie % (Auto) Eos % (Auto) Baso % (Auto) Neut # (Auto) Lymph # (Auto) Guthrie # (Auto) Eos # (Auto) Baso # (Auto) Immature Gran # (Auto) Neutrophils % (Manual) Band Neutrophils % Lymphocytes % (Manual) Prolymphocyte % Reactive Lymphs % (Man) Monocytes % (Manual) Eosinophils % (Manual) Basophils % (Manual) Metamyelocytes % (Man) Myelocytes % (Man) Promyelocytes % (Man) Blast Cells % (Manual) Plasma Cell % (Manual) Other Cells % Nucleated RBC % Neutrophils # (Manual) Band Neutrophils # Total Absolute Neuts Lymphocytes # (Manual) Prolymphocyte # Reactive Lymphs # Total Abs Lymphocytes Monocytes # (Manual) Eosinophils # (Manual) Basophils # (Manual) Metamyelocytes # (Man) Myelocytes # (Manual) Promyelocytes # (Man) Blast Cells # (Man) Plasma Cell # (Manual) Other Cells # Nucleated RBCs # (Man) Hypersegmented Neuts Hyposegmented Neuts Hypogranular Neuts Large Granular Lymphs # Lrg Granular Lymphs Hairy Cells Smudge Cells Toxic Granulation Toxic Vacuolation Dohle Bodies Soledad Rods Platelet Estimate Hypogranular Platelets Clumped Platelets Giant Platelets Platelet Satelliting RBC Morphology Polychromasia Hypochromasia Poikilocytosis Basophilic Stippling Anisocytosis Microcytosis Macrocytosis Spherocytes Pappenheimer Bodies Sickle Cells Target Cells Tear Drop Cells Ovalocytes Stomatocytes Patten-Leith-Hatfield Bodies Echinocytes Acanthocytes (Spur) Rouleaux RBC Agglutinates Schistocytes RBC Morph Comment Sezary Cell PT INR APTT PTT Ratio Sodium Potassium Chloride Carbon Dioxide Anion Gap BUN Creatinine Est Cr Clr Drug Dosing Est GFR ( Amer) Est GFR (Non-Af Amer) BUN/Creatinine Ratio Glucose Lactate 1.8 Calcium Phosphorus 3.0 Magnesium Total Bilirubin AST ALT Alkaline Phosphatase Troponin I Total Protein Albumin Globulin Albumin/Globulin Ratio Procalcitonin < 0.05 Urine Color Urine Appearance Urine pH Ur Specific [place] Urine Protein Urine Glucose (UA) Urine Ketones Urine Blood Urine Nitrite Urine Bilirubin Urine Urobilinogen Ur Leukocyte Esterase Urine WBC (Auto) Urine RBC (Auto) U Hyaline Cast (Auto) U Epithel Cells (Auto) Urine Bacteria (Auto) Blood Type Antibody Screen 01/11/20 01/12/20 01/12/20 17:47 00:30 00:30 WBC 0.36 L* RBC 2.56 L Hgb 7.3 L Hct 21.8 L MCV 85.2 MCH 28.5 MCHC 33.5 RDW Std Deviation 45.8 RDW Coeff of Anjelica 14.6 H Plt Count 45 L D MPV 9.0 Immature Gran % (Auto) Cancelled Neut % (Auto) Cancelled Lymph % (Auto) Cancelled Guthrie % (Auto) Cancelled Eos % (Auto) Cancelled Baso % (Auto) Cancelled Neut # (Auto) Cancelled Lymph # (Auto) Cancelled Guthrie # (Auto) Cancelled Eos # (Auto) Cancelled Baso # (Auto) Cancelled Immature Gran # (Auto) Cancelled Neutrophils % (Manual) Cancelled Band Neutrophils % Cancelled Lymphocytes % (Manual) Cancelled Prolymphocyte % Cancelled Reactive Lymphs % (Man) Cancelled Monocytes % (Manual) Cancelled Eosinophils % (Manual) Cancelled Basophils % (Manual) Cancelled Metamyelocytes % (Man) Cancelled Myelocytes % (Man) Cancelled Promyelocytes % (Man) Cancelled Blast Cells % (Manual) Cancelled Plasma Cell % (Manual) Cancelled Other Cells % Cancelled Nucleated RBC % Cancelled Neutrophils # (Manual) Cancelled Band Neutrophils # Cancelled Total Absolute Neuts Cancelled Lymphocytes # (Manual) Cancelled Prolymphocyte # Cancelled Reactive Lymphs # Cancelled Total Abs Lymphocytes Cancelled Monocytes # (Manual) Cancelled Eosinophils # (Manual) Cancelled Basophils # (Manual) Cancelled Metamyelocytes # (Man) Cancelled Myelocytes # (Manual) Cancelled Promyelocytes # (Man) Cancelled Blast Cells # (Man) Cancelled Plasma Cell # (Manual) Cancelled Other Cells # Cancelled Nucleated RBCs # (Man) Cancelled Hypersegmented Neuts Cancelled Hyposegmented Neuts Cancelled Hypogranular Neuts Cancelled Large Granular Lymphs Cancelled # Lrg Granular Lymphs Cancelled Hairy Cells Cancelled Smudge Cells Cancelled Toxic Granulation Cancelled Toxic Vacuolation Cancelled Dohle Bodies Cancelled Soledad Rods Cancelled Platelet Estimate Hypogranular Platelets Cancelled Clumped Platelets Cancelled Giant Platelets Cancelled Platelet Satelliting Cancelled RBC Morphology Cancelled Polychromasia Cancelled Hypochromasia Cancelled Poikilocytosis Cancelled Basophilic Stippling Cancelled Anisocytosis Cancelled Microcytosis Cancelled Macrocytosis Cancelled Spherocytes Cancelled Pappenheimer Bodies Cancelled Sickle Cells Cancelled Target Cells Cancelled Tear Drop Cells Cancelled Ovalocytes Cancelled Stomatocytes Cancelled Patten-Leith-Hatfield Bodies Cancelled Echinocytes Cancelled Acanthocytes (Spur) Cancelled Rouleaux Cancelled RBC Agglutinates Cancelled Schistocytes Cancelled RBC Morph Comment Cancelled Sezary Cell Cancelled PT INR APTT PTT Ratio Sodium 142 Potassium 2.7 L Chloride 107 Carbon Dioxide 29 Anion Gap 6.0 BUN 14 Creatinine 0.89 D Est Cr Clr Drug Dosing 65.3 Est GFR ( Amer) 79.4 Est GFR (Non-Af Amer) 68.5 BUN/Creatinine Ratio 16.3 Glucose 132 H Lactate Calcium 7.0 L D Phosphorus 2.5 Magnesium 1.6 L Total Bilirubin 0.2 AST 11 L ALT 18 Alkaline Phosphatase 76 Troponin I Total Protein 5.8 L D Albumin 2.2 L Globulin 3.6 Albumin/Globulin Ratio 0.6 L Procalcitonin Urine Color Urine Appearance Urine pH Ur Specific [place]once Urine Protein Urine Glucose (UA) Urine Ketones Urine Blood Urine Nitrite Urine Bilirubin Urine Urobilinogen Ur Leukocyte Esterase Urine WBC (Auto) Urine RBC (Auto) U Hyaline Cast (Auto) U Epithel Cells (Auto) Urine Bacteria (Auto) Blood Type O Positive Antibody Screen NEGATIVE 01/12/20 13:55 WBC RBC Hgb Hct MCV MCH MCHC RDW Std Deviation RDW Coeff of Anjelica Plt Count MPV Immature Gran % (Auto) Neut % (Auto) Lymph % (Auto) Guthrie % (Auto) Eos % (Auto) Baso % (Auto) Neut # (Auto) Lymph # (Auto) Guthrie # (Auto) Eos # (Auto) Baso # (Auto) Immature Gran # (Auto) Neutrophils % (Manual) Band Neutrophils % Lymphocytes % (Manual) Prolymphocyte % Reactive Lymphs % (Man) Monocytes % (Manual) Eosinophils % (Manual) Basophils % (Manual) Metamyelocytes % (Man) Myelocytes % (Man) Promyelocytes % (Man) Blast Cells % (Manual) Plasma Cell % (Manual) Other Cells % Nucleated RBC % Neutrophils # (Manual) Band Neutrophils # Total Absolute Neuts Lymphocytes # (Manual) Prolymphocyte # Reactive Lymphs # Total Abs Lymphocytes Monocytes # (Manual) Eosinophils # (Manual) Basophils # (Manual) Metamyelocytes # (Man) Myelocytes # (Manual) Promyelocytes # (Man) Blast Cells # (Man) Plasma Cell # (Manual) Other Cells # Nucleated RBCs # (Man) Hypersegmented Neuts Hyposegmented Neuts Hypogranular Neuts Large Granular Lymphs # Lrg Granular Lymphs Hairy Cells Smudge Cells Toxic Granulation Toxic Vacuolation Dohle Bodies Soledad Rods Platelet Estimate Hypogranular Platelets Clumped Platelets Giant Platelets Platelet Satelliting RBC Morphology Polychromasia Hypochromasia Poikilocytosis Basophilic Stippling Anisocytosis Microcytosis Macrocytosis Spherocytes Pappenheimer Bodies Sickle Cells Target Cells Tear Drop Cells Ovalocytes Stomatocytes Patten-Leith-Hatfield Bodies Echinocytes Acanthocytes (Spur) Rouleaux RBC Agglutinates Schistocytes RBC Morph Comment Sezary Cell PT INR APTT PTT Ratio Sodium Potassium Chloride Carbon Dioxide Anion Gap BUN Creatinine Est Cr Clr Drug Dosing Est GFR ( Amer) Est GFR (Non-Af Amer) BUN/Creatinine Ratio Glucose Lactate Calcium Phosphorus Magnesium Total Bilirubin AST ALT Alkaline Phosphatase Troponin I Total Protein Albumin Globulin Albumin/Globulin Ratio Procalcitonin Urine Color Yellow Urine Appearance Clear Urine pH 5.0 Ur Specific Ponce 1.016 Urine Protein Trace H Urine Glucose (UA) Negative Urine Ketones Negative Urine Blood Negative Urine Nitrite Negative Urine Bilirubin Negative Urine Urobilinogen Negative Ur Leukocyte Esterase Negative Urine WBC (Auto) 1-5 Urine RBC (Auto) 0-4 U Hyaline Cast (Auto) 5-10 H U Epithel Cells (Auto) >30 H Urine Bacteria (Auto) Negative Blood Type Antibody Screen (1) Neutropenia Neutropenia type: secondary to cancer chemotherapy Qualified Code(s): D70.1 - Agranulocytosis secondary to cancer chemotherapy; T45.1X5A - Adverse effect of antineoplastic and immunosuppressive drugs, initial encounter
[2020-01-12] MEDS: CEFEPIME 2,000 MG in SYRINGE 0 ML IV SCH ×2 (11:10→21:31)
[2020-01-12] MEDS: D5W AND 1/2NSS 1,000 ML IV SCH ×2 (13:52→20:18)
[2020-01-12 14:06] LABS: Appearance Urine Clear (Clear); Bacteria Urine Automated Negative (Negative); Bilirubin Urine Negative (Negative); Blood Urine Negative (Negative); Color Urine Yellow; Epithelial Cell Urine Auto >30 /lpf (0-5); Glucose Urine UA Negative (Negative); Ketones Urine Negative (Negative); Leukocyte Esterase Urine Negative (Negative); Nitrite Urine Negative (Negative); Protein Urine Trace (Negative); RBC Urine Automated 0-4 /hpf (0-4); Specific Gravity Urine 1.016 (1.000-1.030); Urobilinogen Urine Negative (Negative)
--- NOTE | 2020-01-12 15:50 | Radiation Oncology Progress Nt ---
Date of Service January 12, 2020 Assessment & Plan (1) Small cell lung cancer in adult: Assessment: Ms. Fischer is a 64-year-old female with limited stage small cell lung carcinoma. The patient is being treated with chemotherapy and radiation therapy. Unfortunately, the patient has suffered from neutropenia and CVA and has had multiple hospitalizations. The patient is now admitted to the hospital again for nausea and vomiting and neutropenia. The patient's chemotherapy has been held. I am now seeing the patient to further discuss radiation therapy. Recommendation: I have spoken with Dr. Anibal Hebert from medical oncology. We are in agreement to proceed with radiation therapy until the patient's blood counts are more appropriate for concurrent chemotherapy. I have spoken with the hospitalist who is in agreement with this plan. Plan: 1. We will plan to bring the patient down for radiation therapy tomorrow. Admission and Anticipated Discharge Date Admission Date: January 11, 2020 Results & Data ([facility]) Vital Signs (Past 12 Hours) Vital Signs Temp Pulse Pulse Resp BP BP Pulse Ox 01/12/20 11:40 36.8 C 94 H 18 107/70 96 01/12/20 08:00 92 H 01/12/20 07:16 36.3 C L 95 H 17 91/65 L 98 01/12/20 03:53 36.6 C 95 H 21 99/68 L 93
--- NOTE | 2020-01-12 16:47 | Electrocardiogram Report ---
Test Reason : Blood Pressure : / mmHG Vent. Rate : 124 BPM Atrial Rate : 124 BPM P-R Int : 130 ms QRS Dur : 074 ms QT Int : 320 ms P-R-T Axes : 040 039 076 degrees QTc Int : 459 ms Sinus tachycardia Nonspecific ST abnormality Abnormal ECG When compared with ECG of 03-JAN-2020 21:01, No significant change was found Confirmed by Michel Alfaro [id number] on 01/12/2020 4:47:07 PM Referred By: REFERRED SELF Confirmed By:Carlyle Alfaro
[2020-01-12] MEDS: PANTOprazole 40 MG TAB PO SCH (20:18)
[2020-01-13] MEDS: HYDROmorphone INJ 0.5 MG/0.5 ML SYR IV PRN ×5 (02:56→21:47)
[2020-01-13 07:19] LABS: Hematocrit (blood only) 21.9 % (37-47); Hemoglobin 7.6 g/dL (12.0-16.0); Mean Corpuscular Hemoglobin 29.2 pg (25-34); Mean Corpuscular Hgb Conc 34.7 g/dL (32-36); Mean Corpuscular Volume 84.2 fL (80-100); Mean Platelet Volume 8.9 fL (7.4-10.4); Platelet Count 52 K/uL (130-400); RDW Coefficient of Variation 14.6 % (11.5-14.5); RDW Standard Deviation 45.3 fL (36.4-46.3); White Blood Count 0.57 K/uL (4.8-10.8)
[2020-01-13 07:46] LABS: Eosinophils # (auto) 0.01 K/uL (0-0.5); Eosinophils % (auto) 1.8 %; Immature Granulocytes # (auto) 0.01 K/uL (0.00-0.02); Immature Granulocytes % (auto) 1.8 %; Lymphocytes # (auto) 0.31 K/uL (1.2-3.4); Lymphocytes % (auto) 54.4 %; Monocytes % (auto) 35.1 %; Neutrophils # (auto) 0.04 K/uL (1.4-6.5); Neutrophils % (auto) 6.9 %
[2020-01-13] MEDS: UMECLIDINIUM/VILANTEROL 62.5/25MCG 7 PUFFS/INHALER INH SCH (07:48)
[2020-01-13] MEDS: NICOTINE 14 MG/24 HR PATCH TD SCH ×2 (07:49→13:15)
[2020-01-13] MEDS: PANTOprazole 40 MG TAB PO SCH (07:50)
[2020-01-13 08:33] LABS: BUN Creatinine Ratio 7.5 (10-20); Creatinine Clr Calc Pharmacy 84.3 ml/min; Est GFR (African American) 91.7; Est GFR (Non-African American) 79.1; Magnesium 1.3 mg/dl (1.8-2.4); Phosphorus 2.1 mg/dl (2.5-4.9); Potassium 2.5 mmol/L (3.5-5.1)
[2020-01-13] MEDS: CEFEPIME 2,000 MG in SYRINGE 0 ML IV SCH ×2 (09:00→21:18)
[2020-01-13] MEDS: D5W AND 1/2NSS 1,000 ML IV SCH (09:00)
[2020-01-13] MEDS ORDERED: POTASSIUM PHOS 3 MMOL/1 ML INFUSION IV STA (09:56)
[2020-01-13] MEDS: POTASSIUM CHLORIDE 20 MEQ/15 ML UDC PO STA ×2 (10:00→19:02)
[2020-01-13] MEDS ORDERED: POTASSIUM PHOSPHATE 40 MMOL in SODIUM CHLORIDE 0.9% 1000ML 1,000 ML IV ONE (10:15)
[2020-01-13] MEDS ORDERED: ONDANSETRON INJ 2 MG/ML 2 ML VIAL IV PRN (10:19)
[2020-01-13] MEDS: PROMETHAZINE HCL 6.25 MG in SODIUM CHLORIDE 0.9% 50 ML IV PRN ×2 (10:27→12:00)
--- NOTE | 2020-01-13 10:48 | Hospitalist Progress Note ---
Date of Service January 13, 2020 Assessment & Plan (1) Intractable nausea and vomiting: With dehydration, hypokalemia, hypomagnesemia Continue promethazine scheduled Continue to optimize nausea control May add zofran prn in addition if not controlled Continue liquid diet Continue IVF (2) Acute dehydration: Acute Kidney disease on Chronic Kidney Disease stage 3 -from poor appetite and fluid losses from dehydration MARIA R resolved with hydration Continue IVF for now (3) Hypokalemia: Electrolyte deficits due to GI losses and poor oral intake Admission serum potassium 2.7 Still 2.5 this AM despite aggressive repletion yesterday Give 40mEq of K phos as she is hypophosphatemic as well Give 20mEq of KCl Give all IV as she does not tolerate po repletion Replete magnesium Monitor BMP later today after repletion is complete (4) Hypomagnesemia: Mag was 0.9 on admission 1.3 this AM. continue repletion 2g Mag ordered (5) Small cell lung cancer in adult: Discussed with Dr Anibal Hebert on 01/12/20 He recommend to continue radiation therapy if able, to continue cefepime for now while inpatient for prophylaxis for chemotherapy induced neutropenia, given history of neutropenic fevers Rad onc consult. Spoke with Radiation oncologist, Dr Hebert yesterday. Can resume radiation therapy today if possible (6) Pancytopenia: (7) Neutropenia: Was given IV Ertapenem, ED physician does not find a clear source suggestive of infection but given neutropenia, patient to continue empiric antibiotics for now No fevers. Continue cefepime for now and monitor CBC w/diff (8) Thrombocytopenia: Admission platelet 19,000 Got 1 platelet. Count is 52K this AM. Chronic anemia Monitor Hb Hb stable in 7s DVT prophylaxis: SCDs for now History of recent CVA, LEFT CEREBRAL HEMISPHERE, 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 on last hospitalization -Patient was discharged on 01/08/2020 after that admission for neurological deficits with speech -Initially held antiplatelets due to significant thrombocytopenia. Discussed this with patient and she was ok with it. Resume aspirin for now as platelet is improved. Can resume plavix to complete 21 days as platelet improves Conditional Code: allows for chest compressions and defibrillation, no intubation of mechanical ventilation Admission and Anticipated Discharge Date Admission Date: January 11, 2020 Subjective Patient seen and examined. Patient was vomiting when i walked into the room. She stated she just had some jello before vomiting started. Reported no vomiting for the past 24h until now. Per RN, patient had deferred her Am promethazine as she had not had nausea/vomiting. Reports some chest wall pain, chronic Denied any abd pain, diarrhea Denied any dysuria, freq, urgency Denied any fevers, chills Denied any dizziness, headache Physical Exam Constitutional: + well hydrated; no acute distress Eyes: + anicteric sclerae and PERRL ENMT: external ear and nose normal, oropharynx normal Respiratory: normal respiratory effort, lungs clear to auscultation Cardiovascular: RRR, no murmur, no edema Chest (Breasts): Additional Comments: Mild chest wall tenderness Gastrointestinal (Abdomen): normal bowel sounds, soft, nontender, no hepatosplenomegaly Neurologic: PERRL, EOMI, accommodation nl, no face palsy, no dysarthria Psychiatric: A+Ox3, euthymic affect Results & Data Results & Data ([facility]) Vital Signs (Past 12 Hours) Vital Signs Temp Pulse Pulse Resp BP BP Pulse Ox 01/13/20 10:21 01/13/20 08:25 37.4 C 100 H 18 93/66 L 99 01/13/20 02:49 37.1 C 106 H 20 106/76 98 01/12/20 23:16 36.8 C 114 H 18 100/72 97 01/12/20 23:13 100 H Pulse Ox 01/13/20 10:21 96 01/13/20 08:25 01/13/20 02:49 01/12/20 23:16 01/12/20 23:13 Laboratory Results Laboratory Results - last 24 hr 01/12/20 01/13/20 01/13/20 13:55 06:45 06:45 WBC 0.57 L* RBC 2.60 L Hgb 7.6 L Hct 21.9 L MCV 84.2 MCH 29.2 MCHC 34.7 RDW Std Deviation 45.3 RDW Coeff of Anjelica 14.6 H Plt Count 52 L MPV 8.9 Immature Gran % (Auto) 1.8 Neut % (Auto) 6.9 Lymph % (Auto) 54.4 Patrick % (Auto) 35.1 Eos % (Auto) 1.8 Baso % (Auto) 0.0 Neut # (Auto) 0.04 L* Lymph # (Auto) 0.31 L Patrick # (Auto) 0.20 Eos # (Auto) 0.01 Baso # (Auto) 0.00 Immature Gran # (Auto) 0.01 Sodium 138 Potassium 2.5 L* Chloride 102 Carbon Dioxide 30 Anion Gap 6.0 BUN 6 L D Creatinine 0.79 Est Cr Clr Drug Dosing 84.3 Est GFR ( Amer) 91.7 Est GFR (Non-Af Amer) 79.1 BUN/Creatinine Ratio 7.5 L Glucose 113 H Calcium 8.0 L Phosphorus 2.1 L Magnesium 1.3 L Urine Color Yellow Urine Appearance Clear Urine pH 5.0 Ur Specific [place] 1.016 Urine Protein Trace H Urine Glucose (UA) Negative Urine Ketones Negative Urine Blood Negative Urine Nitrite Negative Urine Bilirubin Negative Urine Urobilinogen Negative Ur Leukocyte Esterase Negative Urine WBC (Auto) 1-5 Urine RBC (Auto) 0-4 U Hyaline Cast (Auto) 5-10 H U Epithel Cells (Auto) >30 H Urine Bacteria (Auto) Negative (1) Neutropenia Neutropenia type: secondary to cancer chemotherapy Qualified Code(s): D70.1 - Agranulocytosis secondary to cancer chemotherapy; T45.1X5A - Adverse effect of antineoplastic and immunosuppressive drugs, initial encounter
[2020-01-13] MEDS: MAGNESIUM SULFATE / D5W 1 GM/100 ML BAG IV SCH ×2 (11:00→14:14)
[2020-01-13 15:41] LABS: BUN Creatinine Ratio 7.3 (10-20); Calcium 8.2 mg/dl (8.5-10.1); Creatinine Clr Calc Pharmacy 84.3 ml/min; Est GFR (African American) 91.7; Est GFR (Non-African American) 79.1; Potassium 2.2 mmol/L (3.5-5.1)
[2020-01-13] MEDS: POTASSIUM CHLORIDE / WTR 10 MEQ/100 ML PLCT IV SCH ×4 (15:56→23:24)
[2020-01-13] MEDS ORDERED: ONDANSETRON INJ 2 MG/ML 2 ML VIAL IV ONE (16:47)
[2020-01-13 21:29] LABS: BUN Creatinine Ratio 6.4 (10-20); Calcium 7.8 mg/dl (8.5-10.1); Est GFR (African American) 99.2; Est GFR (Non-African American) 85.6; Potassium 2.9 mmol/L (3.5-5.1)
[2020-01-14] MEDS: PROMETHAZINE HCL 6.25 MG in SODIUM CHLORIDE 0.9% 50 ML IV PRN (02:15)
[2020-01-14] MEDS: HYDROmorphone INJ 0.5 MG/0.5 ML SYR IV PRN ×5 (03:44→21:15)
[2020-01-14 07:24] LABS: BUN Creatinine Ratio 6.2 (10-20); Calcium 7.9 mg/dl (8.5-10.1); Creatinine Clr Calc Pharmacy 89.5 ml/min; Est GFR (African American) 99.2; Est GFR (Non-African American) 85.6; Magnesium 1.2 mg/dl (1.8-2.4); Potassium 2.6 mmol/L (3.5-5.1)
[2020-01-14 07:25] LABS: Phosphorus 2.7 mg/dl (2.5-4.9)
[2020-01-14 07:42] LABS: Hematocrit (blood only) 20.9 % (37-47); Hemoglobin 7.1 g/dL (12.0-16.0); Immature Granulocytes # (auto) 0.01 K/uL (0.00-0.02); Immature Granulocytes % (auto) 1.1 %; Lymphocytes # (auto) 0.38 K/uL (1.2-3.4); Lymphocytes % (auto) 43.2 %; Mean Corpuscular Hemoglobin 28.6 pg (25-34); Mean Corpuscular Volume 84.3 fL (80-100); Mean Platelet Volume 8.7 fL (7.4-10.4); Monocytes # (auto) 0.26 K/uL (0.11-0.59); Monocytes % (auto) 29.5 %; Neutrophils # (auto) 0.23 K/uL (1.4-6.5); Neutrophils % (auto) 26.2 %; Nucleated RBC # (auto) 0.02 K/uL (0-0); Nucleated RBC % (auto) 2.5 %; Platelet Count 46 K/uL (130-400); RDW Coefficient of Variation 14.7 % (11.5-14.5); RDW Standard Deviation 45.3 fL (36.4-46.3); Red Blood Count 2.48 M/uL (4.2-5.4); White Blood Count 0.88 K/uL (4.8-10.8)
[2020-01-14 07:43] LABS: Toxic Granulation 1+
[2020-01-14] MEDS: ASPIRIN 81 MG ECTAB PO SCH (08:19)
[2020-01-14] MEDS: UMECLIDINIUM/VILANTEROL 62.5/25MCG 7 PUFFS/INHALER INH SCH (08:19)
[2020-01-14] MEDS: NICOTINE 14 MG/24 HR PATCH TD SCH (08:19)
[2020-01-14] MEDS: PANTOprazole 40 MG TAB PO SCH (08:19)
[2020-01-14] MEDS: CEFEPIME 2,000 MG in SYRINGE 0 ML IV SCH ×2 (08:24→21:15)
[2020-01-14] MEDS ORDERED: POTASSIUM CHLORIDE 20 MEQ TABCR PO STA (09:09)
[2020-01-14] MEDS: D5W AND 1/2NSS 1,000 ML IV SCH ×2 (09:10→09:11)
[2020-01-14] MEDS: POTASSIUM CHLORIDE / WTR 10 MEQ/100 ML PLCT IV SCH ×4 (10:04→13:37)
[2020-01-14] MEDS: D5NSS + 20MEQ KCL 20 MEQ/1,000 ML BAG IV SCH ×2 (10:04→23:58)
[2020-01-14] MEDS: MAGNESIUM SULFATE / D5W 1 GM/100 ML BAG IV SCH ×2 (10:04→12:25)
[2020-01-14 16:04] LABS: BUN Creatinine Ratio 6.9 (10-20); Creatinine Clr Calc Pharmacy 90.8 ml/min; Est GFR (African American) 100.9; Potassium 2.9 mmol/L (3.5-5.1)
[2020-01-14] MEDS ORDERED: NYSTATIN SUSP 500,000 U/5 ML UDC PO SCH (17:00)
[2020-01-14] MEDS: POTASSIUM CHLORIDE / WTR 20 MEQ/100 ML PLCT IV SCH ×2 (17:26→19:22)
--- NOTE | 2020-01-14 18:14 | Hospitalist Progress Note ---
Date of Service January 14, 2020 Assessment & Plan (1) Intractable nausea and vomiting: With dehydration, hypokalemia, hypomagnesemia Lung Cancer on chemo- and radiation- therapy last Chemotherapy session 2 weeks ago (3rd session) slow improvement Continue promethazine scheduled add Diflucan for oral candidiasis will consult GI Continue liquid diet Continue IVF (2) Acute dehydration: Acute Kidney disease on Chronic Kidney Disease stage 3 -from poor appetite and fluid losses from dehydration MARIA R resolved with hydration Continue IVF (3) Hypokalemia: Electrolyte deficits due to GI losses and poor oral intake Admission serum potassium 2.7 patient unable to tolerate PO potassium given IV K repeat at 10pm (4) Hypomagnesemia: Mag was 0.9 on admission 1.2 today IV Mg ordered repeat Mg at 10pm (5) Small cell lung cancer in adult: per Dr. Simpson's notes: Discussed with Dr Anibal Hebert on 01/12/20 He recommend to continue radiation therapy if able, to continue cefepime for now while inpatient for prophylaxis for chemotherapy induced neutropenia, given history of neutropenic fevers Rad onc consult. Spoke with Radiation oncologist, Dr Hebert. Can resume radiation therapy. (6) Pancytopenia: (7) Neutropenia: ANC improved from 40 to [address] Hebert- recommend to continue Cefepime until ANC further improves Hg 7.1 minimally symptomatic transfuse for Hg < 7 Plt 42 Aspirin only for now discussed with Dr. 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 Simpson's notes: -Patient was discharged on 01/08/2020 after that admission for neurological deficits with speech -Initially held antiplatelets due to significant thrombocytopenia. Discussed this with patient and she was ok with it. Resume aspirin for now as platelet is improved. Aspirin only for now discussed with Dr. Hebetr DVT prophylaxis: SCDs for now Disposition lives with at home will need PT/OT eval Admission and Anticipated Discharge Date Admission Date: January 11, 2020 Subjective ff up for nausea/vomiting ,etc seen resting in bed, comfortable, somewhat weak states she feels slightly better today nausea is intermittent, but able to tolerate full liquid diet today no abdominal pain has mild dyspnea on exertion, no dizziness, chest pain denies bleeding no other symptoms Review of Systems Review of Systems: All systems reviewed & are unremarkable except as noted in Subjective Physical Exam Physical Exam: General- oriented x 3, not in distress, speaks in sentences with no effort or accessory muscle use Head- atraumatic Eyes- PERRL, EOMI, anicteric ENT- (+) oral thrush Neck- supple, no JVD, no adenopathy, no thyromegaly; carotids +2/2, no bruits appreciated Lungs- clear to auscultation bilaterally, no rales/wheezes Heart- normal rate, regular rhythm; no murmur, no gallop, no rub appreciated Abdomen- normal bowel sounds, nondistended, soft, nontender, no masses or hepatosplenomegaly Extremities- no pretibial edema, no calf tenderness; peripheral pulses intact Neuro- alert, oriented x 3; CN 2-12 grossly intact; motor 5/5 bilaterally;sensation 100% on all extremities; no other gross focal neurologic deficits Skin- warm & dry Results & Data Results & Data ([facility]) Vital Signs (Past 12 Hours) Vital Signs Temp Pulse Pulse Resp BP Pulse Ox 01/14/20 15:13 36.6 C 91 H 18 112/74 97 01/14/20 13:56 95 H 01/14/20 10:59 36.9 C 120 H 20 126/77 92 01/14/20 07:11 37.0 C 102 H 19 129/71 96 (1) Neutropenia Neutropenia type: secondary to cancer chemotherapy Qualified Code(s): D70.1 - Agranulocytosis secondary to cancer chemotherapy; T45.1X5A - Adverse effect of antineoplastic and immunosuppressive drugs, initial encounter
[2020-01-14] MEDS: FLUCONAZOLE 100 MG TAB PO SCH (18:52)
[2020-01-14 22:34] LABS: BUN Creatinine Ratio 6.8 (10-20); Calcium 7.9 mg/dl (8.5-10.1); Creatinine Clr Calc Pharmacy 94.6 ml/min; Est GFR (African American) 106.1; Est GFR (Non-African American) 91.6; Magnesium 1.5 mg/dl (1.8-2.4); Potassium 3.4 mmol/L (3.5-5.1)
[2020-01-15] MEDS: HYDROmorphone INJ 0.5 MG/0.5 ML SYR IV PRN ×5 (03:36→23:15)
[2020-01-15] MEDS: POTASSIUM CHLORIDE / WTR 10 MEQ/100 ML PLCT IV SCH ×2 (05:28→06:36)
[2020-01-15] MEDS: MAGNESIUM SULFATE / D5W 1 GM/100 ML BAG IV SCH ×2 (06:37→08:10)
[2020-01-15] MEDS: PANTOprazole 40 MG TAB PO SCH (08:07)
[2020-01-15] MEDS: NICOTINE 14 MG/24 HR PATCH TD SCH (08:07)
[2020-01-15] MEDS: ASPIRIN 81 MG ECTAB PO SCH (08:07)
[2020-01-15] MEDS: UMECLIDINIUM/VILANTEROL 62.5/25MCG 7 PUFFS/INHALER INH SCH (08:08)
[2020-01-15 08:11] LABS: Nucleated RBC # (auto) 0.05 K/uL (0-0); Nucleated RBC % (auto) 2.8 %
[2020-01-15] MEDS: CEFEPIME 2,000 MG in SYRINGE 0 ML IV SCH ×2 (08:15→20:54)
[2020-01-15 08:41] LABS: Hematocrit (blood only) 24.8 % (37-47); Hemoglobin 8.4 g/dL (12.0-16.0); Mean Corpuscular Hemoglobin 28.9 pg (25-34); Mean Corpuscular Hgb Conc 33.9 g/dL (32-36); Mean Corpuscular Volume 85.2 fL (80-100); Mean Platelet Volume 10.4 fL (7.4-10.4); Platelet Count 75 K/uL (130-400); RDW Coefficient of Variation 14.9 % (11.5-14.5); RDW Standard Deviation 46.4 fL (36.4-46.3); Red Blood Count 2.91 M/uL (4.2-5.4); White Blood Count 1.74 K/uL (4.8-10.8)
[2020-01-15 08:44] LABS: Eosinophils # (auto) 0.01 K/uL (0-0.5); Eosinophils % (auto) 0.6 %; Immature Granulocytes # (auto) 0.04 K/uL (0.00-0.02); Immature Granulocytes % (auto) 2.3 %; Lymphocytes % (auto) 28.7 %; Monocytes # (auto) 0.46 K/uL (0.11-0.59); Monocytes % (auto) 26.4 %; Neutrophils # (auto) 0.73 K/uL (1.4-6.5); Toxic Granulation 3+
[2020-01-15 08:48] LABS: BUN Creatinine Ratio 5.6 (10-20); Calcium 8.9 mg/dl (8.5-10.1); Creatinine Clr Calc Pharmacy 86.2 ml/min; Est GFR (African American) 94.6; Est GFR (Non-African American) 81.6; Potassium 3.5 mmol/L (3.5-5.1)
[2020-01-15] MEDS ORDERED: FOSAPREPITANT DIMEGLUMINE 115 MG in 0.9 % SODIUM CHLORIDE 111.2 ML IV ONE (11:15)
--- NOTE | 2020-01-15 11:25 | Gastrointestinal Consultation ---
Date of Consultation January 15, 2020 Assessment & Plan (1) Intractable nausea and vomiting: Pt is a 64 y/o female w neutropenic fever, small cell lung ca currently undergoing chemo and XRT seen for n/v, weight loss which she said started after her ca treatments were initiated. No other symptoms such as abd pain, changes in bowel habits. She seems to get good relief w current Phenergan and tolerating meals now. - Protonix 40mg daily - Fluconazole for oral thrush - Continue Phenergan prn. She said it works better than Zofran - Add a dose of Emend 115mg IV today. Consider giving med once her chemo is resumed: 125mg PO x 1 on day 1 of chemo, then 80mg PO qAM on days 2-3 of chemo. - Diet as tolerated - GI to sign off; pls recall prn Supervising Physician Co-Signing Physician Notes I performed a history and physical examination of the patient today, including specifically on physical exam - soft abdomen. I have discussed the patient's management with the advanced practitioner. Please refer to the nurse practitioner's note for the documented findings and plan of care. Chemo related nausea/vomiting. Now improved. Give Amend. Recall GI if needed. History of Present Illness Reason for Consultation: Nausea, vomiting Requesting Physician: Dr. Kemal Eduardo Attending Physician: Dr. Sheng Medina History of Present Illness Pt is a 64 y/o w recent CVA, neutropenic fever, small cell lung ca currently on chemo and XRT. Last round of chemo given about 2 weeks ago. She said that since undergoing her treatments she is having n/v, losing weight. She denies any dysphagia/chocking on foods. Denies abd pain, changes in bowel habits. Bowels move daily. Denies signs of GI bleeding. She is currently placed on Fluconazole for oral thrush. And doing quite well on Phenergran which she prefers compared to Zofran to manage her nausea. Colonoscopy 2012 - stool in entire colon, sigmoid diverticulosis, recommend repeat in 3 yrs Allergies Allergy/AdvReac Type Severity Reaction Status Date / Time mushroom Allergy Severe anaphylaxis Verified 12/29/19 08:26 Penicillins Allergy Severe anaphylaxis, Verified 12/29/19 08:26 facial & throat swelling acetazolamide Allergy Unknown rash, hives Verified 12/29/19 08:26 mold Allergy Unknown unknown Verified 12/29/19 08:26 reaction sumatriptan AdvReac Unknown flushing, Verified 12/29/19 08:26 heart racing Home Medications Home Medications Medication Instructions Recorded Confirmed Type aripiprazole 10 mg tablet 10 mg PO HS 09/18/19 01/11/20 History ibuprofen [Advil] 400 mg PO Q12H PRN 10/13/19 01/11/20 History albuterol sulfate 90 mcg/actuation 2 puff INH Q6H PRN #18 gm 10/23/19 01/11/20 Rx aerosol inhaler umeclidinium 62.5 mcg-vilanterol 1 puffs INH DAILY #60 ea 10/23/19 01/11/20 Rx 25 mcg/actuation powdr for inhalation multivitamin 1 tab PO QAM 11/08/19 01/11/20 History nicotine 14 mg/24 hr daily 1 patch TD DAILY #28 ea 11/12/19 01/11/20 Rx transdermal patch hydroxyzine HCl 50 mg PO UD PRN 12/23/19 01/11/20 History melatonin 5 mg PO HS PRN 12/23/19 01/11/20 History ondansetron HCl [Zofran] 8 mg PO Q8 PRN 12/23/19 01/11/20 History prochlorperazine maleate 10 mg PO Q6 PRN 12/23/19 01/11/20 History [Compazine] docusate sodium 100 mg PO BID 30 Days #60 cap 12/28/19 01/11/20 Rx magnesium oxide 400 mg PO QAM 15 Days #15 tab 12/28/19 01/11/20 Rx potassium chloride 40 meq PO BID17 15 Days #30 ea 12/28/19 01/11/20 Rx duloxetine 60 mg PO DAILY 01/03/20 01/11/20 History olanzapine [Zyprexa] 10 mg PO UD 01/03/20 01/11/20 History oxycodone-acetaminophen 1 tab PO Q6 PRN 01/03/20 01/11/20 History aspirin 81 mg PO QAM 30 Days #30 tab 01/08/20 01/11/20 Rx atorvastatin 40 mg PO HS 30 Days #30 tab 01/08/20 01/11/20 Rx clopidogrel 75 mg PO QAM 16 Days #16 tab 01/08/20 01/11/20 Rx doxycycline hyclate 100 mg PO BID 7 Days #14 cap 01/08/20 01/11/20 Rx Patient History Medical History Acute kidney injury Acute shoulder pain Now a constant ache - no prescription meds needed Anxiety Chronic venous insufficiency follows with vascular (Dr. Carlson) CKD (chronic kidney disease), stage III COPD with emphysema Dentalgia Depression Hypertension Kidney stones LAD (lymphadenopathy), mediastinal Major depressive disorder, recurrent episode with anxious distress Daughter from OD in 2016 Migraine Nausea & vomiting Neutropenia with fever Nicotine dependence Pancytopenia Polysubstance overdose Hx of 2017 Pulmonary nodule "7 mm RUL nodule, stable 09/25/15 - 09/16/16; repeat 6 mos" Surgical History History of bronchoscopy 10/30/2019 - with EBUS History of cataract surgery 2004 - bilateral History of section 1991 History of colonoscopy unsuccessful (poor bowel prep) History of cystoscopy 2007 - with stent History of dental surgery 02/2019 - Full upper teeth extracted S/P arthroscopy of left knee S/P arthroscopy of right knee Family History Grandmother (Maternal) , Passed in 80's of metastatic cancer (unknown primary) No problems noted. Mother , Passed age 93 of natural causes No problems noted. Father , Passed age 97 of natural causes No problems noted. Brother No problems noted. Daughter , Passed age 24 from Over Dose No problems noted. 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 [employer] Other Information That Helps Us Care for You: No Feels Safe at Home: Yes Safety Concerns: Feels Safe At This Time Childhood Exposure to Second-Hand Smoke: No caffeine: Yes (2 cups of coffee/day ) during the past year weight has: remained stable Dental Care, Regularly: Yes Assistive Devices: Glasses Review of Systems Review of Systems: All systems reviewed & are unremarkable except as noted in HPI & below Physical Exam Constitutional: WD/WN, vitals as above well groomed, cooperative and comfortable Eyes: PERRL, conjunctivae normal, anicteric sclerae ENMT: external ear and nose normal, oropharynx normal Respiratory: normal respiratory effort, lungs clear to auscultation Cardiovascular: RRR, no murmur, no edema Gastrointestinal (Abdomen): normal bowel sounds, soft, nontender, no hepatosplenomegaly Skin: no rashes, warm and dry no jaundice Psychiatric: A+Ox3, euthymic affect Lymphatic: no lymphedema Results & Data ([facility]) Vital Signs (Past 12 Hours) Vital Signs Temp Pulse Pulse Resp BP Pulse Ox 01/15/20 06:58 36.8 C 96 H 18 107/72 97 01/15/20 04:46 36.7 C 100 H 20 111/69 99 01/15/20 00:14 96 H
[2020-01-15] MEDS: FLUCONAZOLE 100 MG TAB PO SCH (18:22)
[2020-01-15] MEDS ORDERED: CLOPIDOGREL BISULFATE 75 MG TAB PO ONE (20:30)
--- NOTE | 2020-01-15 20:30 | Hospitalist Progress Note ---
Date of Service January 15, 2020 Assessment & Plan (1) Intractable nausea and vomiting: With dehydration, hypokalemia, hypomagnesemia Lung Cancer on chemo- and radiation- therapy last Chemotherapy session 2 weeks ago (3rd session) Gradually improving GI consulted Given 1 dose of Emend Continue promethazine scheduled Continue Diflucan for oral candidiasis Appreciate GI service recommendations Continue soft diet (2) Acute dehydration: Acute Kidney disease on Chronic Kidney Disease stage 3 -from poor appetite and fluid losses from dehydration MARIA R resolved with hydration (3) Hypokalemia: Electrolyte deficits due to GI losses and poor oral intake Admission serum potassium 2.7 patient unable to tolerate PO potassium given IV K Resolved (4) Hypomagnesemia: Mag was 0.9 on admission 1.2 today IV Mg ordered Resolved (5) Small cell lung cancer in adult: per Dr. Simpson's notes: Discussed with Dr Anibal Hebert on 01/12/20 He recommend to continue radiation therapy if able, to continue cefepime for now while inpatient for prophylaxis for chemotherapy induced neutropenia, given history of neutropenic fevers Rad onc consult. Spoke with Radiation oncologist, Dr Hebert. Can resume radiation therapy. (6) Pancytopenia: (7) Neutropenia: ANC improved from 40 to [address] Hebert- recommend to continue Cefepime until ANC further improves Hg 7.1 now 8.4 minimally symptomatic transfuse for Hg < 7 Plt 75 Resume aspirin and Plavix in light of recent CVA discussed with Dr. 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 Simpson's notes: -Patient was discharged on 01/08/2020 after that admission for neurological deficits with speech -Initially held antiplatelets due to significant thrombocytopenia. Discussed this with patient and she was ok with it. Resume aspirin for now as platelet is improved. -Resume aspirin and Plavix in light of increasing platelet discussed with Dr. Hebert DVT prophylaxis: SCDs for now Disposition lives with at home will need PT/OT eval Admission and Anticipated Discharge Date Admission Date: January 11, 2020 Subjective Follow-up for intractable nausea vomiting, pancytopenia Etc. Seen resting bed, comfortable, in good spirits States she feels improved today Nausea seems to be resolving No abdominal pain Denies shortness of breath, dizziness, chest pain, bleeding no Other symptoms Review of Systems Review of Systems: All systems reviewed & are unremarkable except as noted in Subjective Physical Exam Physical Exam: General- oriented x 3, not in distress, speaks in sentences with no effort or accessory muscle use Eyes- anicteric Neck- no JVD Lungs- clear breath sounds bilateral, no rales or wheezing next Heart- normal rate, regular rhythm; no murmurs Abdomen- normal bowel sounds, nondistended, soft, nontender Extremities- no pretibial edema, no calf tenderness Neuro- alert, oriented x 3; no gross focal neurologic deficits Skin- warm & dry Results & Data Results & Data ([facility]) Vital Signs (Past 12 Hours) Vital Signs Temp Pulse Pulse Resp BP Pulse Ox 01/15/20 20:17 36.8 C 106 H 18 150/76 H 100 01/15/20 20:09 114 H 01/15/20 16:38 37.2 C 94 H 18 131/82 96 01/15/20 12:00 37 C 102 H 18 92/61 L 95 Laboratory Results Laboratory Results - last 24 hr 01/14/20 01/15/20 01/15/20 21:47 07:52 07:52 WBC 1.74 L RBC 2.91 L Hgb 8.4 L Hct 24.8 L MCV 85.2 MCH 28.9 MCHC 33.9 RDW Std Deviation 46.4 H RDW Coeff of Anjelica 14.9 H Plt Count 75 L D MPV 10.4 Immature Gran % (Auto) 2.3 Neut % (Auto) 42.0 Lymph % (Auto) 28.7 [place] % (Auto) 26.4 Eos % (Auto) 0.6 Baso % (Auto) 0.0 Neut # (Auto) 0.73 L* Lymph # (Auto) 0.50 L [place] # (Auto) 0.46 Eos # (Auto) 0.01 Baso # (Auto) 0.00 Immature Gran # (Auto) 0.04 H Absolute Nucleated RBC 0.05 H Nucleated RBC % (auto) 2.8 Toxic Granulation 3+ Sodium 138 137 Potassium 3.4 L D 3.5 Chloride 105 102 Carbon Dioxide 29 28 Anion Gap 5.0 7.0 BUN 5 L 4 L Creatinine 0.70 0.77 Est Cr Clr Drug Dosing 94.6 86.2 Est GFR ( Amer) 106.1 94.6 Est GFR (Non-Af Amer) 91.6 81.6 BUN/Creatinine Ratio 6.8 L 5.6 L Glucose 127 H 101 H Calcium 7.9 L 8.9 Magnesium 1.5 L 01/15/20 08:04 WBC RBC Hgb Hct MCV MCH MCHC RDW Std Deviation RDW Coeff of Anjelica Plt Count MPV Immature Gran % (Auto) Neut % (Auto) Lymph % (Auto) [place] % (Auto) Eos % (Auto) Baso % (Auto) Neut # (Auto) Lymph # (Auto) [place] # (Auto) Eos # (Auto) Baso # (Auto) Immature Gran # (Auto) Absolute Nucleated RBC Nucleated RBC % (auto) Toxic Granulation Sodium Potassium Chloride Carbon Dioxide Anion Gap BUN Creatinine Est Cr Clr Drug Dosing Est GFR ( Amer) Est GFR (Non-Af Amer) BUN/Creatinine Ratio Glucose Calcium Magnesium 1.8 (1) Neutropenia Neutropenia type: secondary to cancer chemotherapy Qualified Code(s): D70.1 - Agranulocytosis secondary to cancer chemotherapy; T45.1X5A - Adverse effect of antineoplastic and immunosuppressive drugs, initial encounter
[2020-01-15] MEDS: PROMETHAZINE HCL 6.25 MG in SODIUM CHLORIDE 0.9% 50 ML IV PRN (20:33)
[2020-01-16] MEDS: PROMETHAZINE HCL 6.25 MG in SODIUM CHLORIDE 0.9% 50 ML IV PRN (03:07)
[2020-01-16] MEDS: HYDROmorphone INJ 0.5 MG/0.5 ML SYR IV PRN ×4 (07:38→21:52)
[2020-01-16] MEDS: ASPIRIN 81 MG ECTAB PO SCH (09:09)
[2020-01-16] MEDS: PANTOprazole 40 MG TAB PO SCH (09:09)
[2020-01-16] MEDS: UMECLIDINIUM/VILANTEROL 62.5/25MCG 7 PUFFS/INHALER INH SCH (09:10)
[2020-01-16] MEDS: HEPARIN 100 UNIT/ML 5ML FLUSH FLUSH PRN ×3 (09:12→12:36)
[2020-01-16] MEDS: NICOTINE 14 MG/24 HR PATCH TD SCH (09:12)
[2020-01-16] MEDS: CEFEPIME 2,000 MG in SYRINGE 0 ML IV SCH ×2 (09:12→16:49)
[2020-01-16] MEDS: HYDROCODONE/ACETAMOPHEN 5/325MG TAB PO PRN ×2 (09:44→16:49)
[2020-01-16 10:10] LABS: Hematocrit (blood only) 23.3 % (37-47); Hemoglobin 7.8 g/dL (12.0-16.0); Mean Corpuscular Hgb Conc 33.5 g/dL (32-36); Mean Corpuscular Volume 86.6 fL (80-100); Nucleated RBC # (auto) 0.08 K/uL (0-0); Nucleated RBC % (auto) 3.8 %; Red Blood Count 2.69 M/uL (4.2-5.4); White Blood Count 1.99 K/uL (4.8-10.8)
[2020-01-16 10:20] LABS: Mean Platelet Volume 10.6 fL (7.4-10.4); Platelet Count 87 K/uL (130-400)
[2020-01-16 10:35] LABS: Basophils # (auto) 0.01 K/uL (0-0.2); Basophils % (auto) 0.5 %; Immature Granulocytes # (auto) 0.13 K/uL (0.00-0.02); Immature Granulocytes % (auto) 6.5 %; Lymphocytes # (auto) 0.34 K/uL (1.2-3.4); Lymphocytes % (auto) 17.1 %; Monocytes # (auto) 0.59 K/uL (0.11-0.59); Monocytes % (auto) 29.6 %; Neutrophils # (auto) 0.92 K/uL (1.4-6.5); Neutrophils % (auto) 46.3 %; Polychromasia 1+
[2020-01-16 10:42] LABS: BUN Creatinine Ratio 9.4 (10-20); Calcium 8.2 mg/dl (8.5-10.1); Creatinine Clr Calc Pharmacy 90.6 ml/min; Est GFR (African American) 100.9; Potassium 3.1 mmol/L (3.5-5.1)
[2020-01-16] MEDS: FLUCONAZOLE 100 MG TAB PO SCH (17:27)
[2020-01-16] MEDS ORDERED: POTASSIUM CHLORIDE 20 MEQ TABCR PO STA ×2 (19:10→20:13)
--- NOTE | 2020-01-16 20:18 | Hospitalist Progress Note ---
Date of Service January 16, 2020 Assessment & Plan (1) Intractable nausea and vomiting: With dehydration, hypokalemia, hypomagnesemia Lung Cancer on chemo- and radiation- therapy last Chemotherapy session 2 weeks ago (3rd session) GI consulted Given 1 dose of Emend Nausea resolved, tolerating diet well Continue promethazine scheduled Continue Diflucan for oral candidiasis Appreciate GI service recommendations Continue soft diet (2) Acute dehydration: Acute Kidney disease on Chronic Kidney Disease stage 3 -from poor appetite and fluid losses from dehydration MARIA R resolved with hydration (3) Hypokalemia: Electrolyte deficits due to GI losses and poor oral intake Admission serum potassium 2.7 Potassium 3.1 Replace (4) Hypomagnesemia: Mag was 0.9 on admission 1.2 today IV Mg ordered Resolved (5) Small cell lung cancer in adult: per Dr. Simpson's notes: Discussed with Dr Anibal Hebert on 01/12/20 He recommend to continue radiation therapy if able, to continue cefepime for now while inpatient for prophylaxis for chemotherapy induced neutropenia, given history of neutropenic fevers Rad onc consult. Spoke with Radiation oncologist, Dr Hebert. Can resume radiation therapy. (6) Pancytopenia: (7) Neutropenia: ANC improving discussed with Oncologist Dr. Hebert- recommend to continue Cefepime until ANC further improves Hg 7.1 now 7.8 minimally symptomatic transfuse for Hg < 7 Plt 87 Resume aspirin and Plavix in light of recent CVA discussed with Dr. 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 Simpson's notes: -Patient was discharged on 01/08/2020 after that admission for neurological deficits with speech -Initially held antiplatelets due to significant thrombocytopenia. Discussed this with patient and she was ok with it. Resume aspirin for now as platelet is improved. -Resume aspirin and Plavix in light of increasing platelet discussed with Dr. Hebert DVT prophylaxis: SCDs for now Encouraged ambulation Disposition lives with at home PT/OT eval Admission and Anticipated Discharge Date Admission Date: January 11, 2020 Subjective For nausea and vomiting, pancytopenia Resting bed, comfortable, not distressed Was having chest wall pain after radiation today Pain improved with pain medications States she feels improved today compared to yesterday Appetite is better, tolerating diet well, no nausea vomiting No other symptoms Review of Systems Review of Systems: All systems reviewed & are unremarkable except as noted in Subjective Physical Exam Physical Exam: General- oriented x 3, not in distress, speaks in sentences with no effort or accessory muscle use Eyes-pale conjunctivae, anicteric Neck- no JVD Lungs- clear breath sounds bilaterally Heart- normal rate, regular rhythm; no murmurs Abdomen- normal bowel sounds, nondistended, soft, nontender Extremities- no pretibial edema, no calf tenderness Neuro- alert, oriented x 3; no gross focal neurologic deficits Skin- warm & dry Results & Data Results & Data ([facility]) Vital Signs (Past 12 Hours) Vital Signs Temp Pulse Pulse Resp BP BP Pulse Ox 01/16/20 19:53 36.6 C 100 H 20 114/75 94 01/16/20 16:00 95 H 01/16/20 15:00 36.4 C L 97 H 18 109/74 96 01/16/20 11:08 36.8 C 98 H 20 92/66 L 92 (1) Neutropenia Neutropenia type: secondary to cancer chemotherapy Qualified Code(s): D70.1 - Agranulocytosis secondary to cancer chemotherapy; T45.1X5A - Adverse effect of antineoplastic and immunosuppressive drugs, initial encounter
[2020-01-16] MEDS: CLOPIDOGREL BISULFATE 75 MG TAB PO SCH (21:53)
[2020-01-17] MEDS: HYDROCODONE/ACETAMOPHEN 5/325MG TAB PO PRN (01:03)
[2020-01-17] MEDS: CEFEPIME 2,000 MG in SYRINGE 0 ML IV SCH ×3 (01:04→15:37)
[2020-01-17] MEDS: HYDROmorphone INJ 0.5 MG/0.5 ML SYR IV PRN ×4 (04:41→23:53)
[2020-01-17] MEDS: HEPARIN 100 UNIT/ML 5ML FLUSH FLUSH PRN ×2 (06:11→14:13)
[2020-01-17 06:31] LABS: Hematocrit (blood only) 23.4 % (37-47); Hemoglobin 7.9 g/dL (12.0-16.0); Mean Corpuscular Hemoglobin 28.9 pg (25-34); Mean Corpuscular Hgb Conc 33.8 g/dL (32-36); Mean Corpuscular Volume 85.7 fL (80-100); Nucleated RBC # (auto) 0.06 K/uL (0-0); Nucleated RBC % (auto) 2.5 %; RDW Coefficient of Variation 15.3 % (11.5-14.5); RDW Standard Deviation 46.9 fL (36.4-46.3); Red Blood Count 2.73 M/uL (4.2-5.4); White Blood Count 2.27 K/uL (4.8-10.8)
[2020-01-17 06:50] LABS: Mean Platelet Volume 10.5 fL (7.4-10.4); Platelet Count 98 K/uL (130-400)
[2020-01-17 07:01] LABS: Basophils # (auto) 0.01 K/uL (0-0.2); Basophils % (auto) 0.4 %; Eosinophils # (auto) 0.01 K/uL (0-0.5); Eosinophils % (auto) 0.4 %; Immature Granulocytes # (auto) 0.17 K/uL (0.00-0.02); Immature Granulocytes % (auto) 7.5 %; Lymphocytes # (auto) 0.45 K/uL (1.2-3.4); Lymphocytes % (auto) 19.8 %; Monocytes # (auto) 0.73 K/uL (0.11-0.59); Monocytes % (auto) 32.2 %; Neutrophils % (auto) 39.7 %; Rouleaux 1+; Toxic Granulation 3+
[2020-01-17 07:05] LABS: BUN Creatinine Ratio 12.2 (10-20); Calcium 8.3 mg/dl (8.5-10.1); Creatinine Clr Calc Pharmacy 99.6 ml/min; Est GFR (African American) 108.2; Est GFR (Non-African American) 93.4
[2020-01-17] MEDS: PROMETHAZINE HCL 6.25 MG in SODIUM CHLORIDE 0.9% 50 ML IV PRN ×2 (08:46→21:12)
[2020-01-17] MEDS: NYSTATIN SUSP 500,000 U/5 ML UDC PO SCH ×4 (08:52→21:58)
[2020-01-17] MEDS: UMECLIDINIUM/VILANTEROL 62.5/25MCG 7 PUFFS/INHALER INH SCH (08:52)
[2020-01-17] MEDS: NICOTINE 14 MG/24 HR PATCH TD SCH (08:55)
[2020-01-17] MEDS: ASPIRIN 81 MG ECTAB PO SCH (08:55)
[2020-01-17] MEDS ORDERED: POTASSIUM CHLORIDE 20 MEQ TABCR PO SCH (10:00)
[2020-01-17] MEDS: POTASSIUM CHLORIDE / WTR 10 MEQ/100 ML PLCT IV SCH ×4 (15:37→18:37)
--- NOTE | 2020-01-17 16:42 | Hospitalist Progress Note ---
Date of Service January 17, 2020 Assessment & Plan (1) Intractable nausea and vomiting: With dehydration, hypokalemia, hypomagnesemia Lung Cancer on chemo- and radiation- therapy last Chemotherapy session 2 weeks ago (3rd session) GI consulted Given 1 dose of Emend Nausea resolved, tolerating diet well Add Carafate 4 times daily for possible radiation esophagitis Continue promethazine scheduled Transition from Diflucan to Nystatin Appreciate GI service recommendations Continue soft diet (2) Acute dehydration: Acute Kidney disease on Chronic Kidney Disease stage 3 -from poor appetite and fluid losses from dehydration MARIA R resolved with hydration (3) Hypokalemia: Electrolyte deficits due to GI losses and poor oral intake Admission serum potassium 2.7 Potassium 3.0 Replace with IV potassium Encouraged to order potassium rich food (4) Hypomagnesemia: Mag was 0.9 on admission 1.2 today IV Mg ordered Resolved (5) Small cell lung cancer in adult: per Dr. Simpson's notes: Discussed with Dr Anibal Hebert on 01/12/20 He recommend to continue radiation therapy if able, to continue cefepime for now while inpatient for prophylaxis for chemotherapy induced neutropenia, given history of neutropenic fevers Rad onc consult--> patient had 2 sessions of radiation therapy so far (6) Pancytopenia: (7) Neutropenia: ANC improving, no [address] Hebert- recommend to continue Cefepime until ANC further improves Hg 7.1 now 7.8 minimally symptomatic transfuse for Hg < 7 Plt 98 Resume aspirin and Plavix in light of recent CVA discussed with Dr. 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 Simpson's notes: -Patient was discharged on 01/08/2020 after that admission for neurological deficits with speech -Initially held antiplatelets due to significant thrombocytopenia. Discussed this with patient and she was ok with it. Resume aspirin for now as platelet is improved. -Resume aspirin and Plavix in light of increasing platelet discussed with Dr. Hebert DVT prophylaxis: SCDs for now Encouraged ambulation Disposition lives with at home PT/OT eval Admission and Anticipated Discharge Date Admission Date: January 11, 2020 Subjective Follow-up for nausea vomiting,Pancytopenia Seen resting in bed, comfortable, not in distress States she continues to feel improved No nausea or vomiting today, Does report burning sensation xiphoid area, worse with eating Denies any other abdominal pain No shortness of breath, fevers or chills, bleeding No other symptoms Review of Systems Review of Systems: All systems reviewed & are unremarkable except as noted in Subjective Physical Exam Physical Exam: General- oriented x 3, not in distress, speaks in sentences with no effort or accessory muscle use Eyes- anicteric Neck- no JVD Lungs- clear breath sounds bilaterally, no crackles Heart- normal rate, regular rhythm; no murmurs Abdomen- normal bowel sounds, nondistended, soft, nontender Extremities- no pretibial edema, no calf tenderness Neuro- alert, oriented x 3; no gross focal neurologic deficits Skin- warm & dry Results & Data Results & Data ([facility]) Vital Signs (Past 12 Hours) Vital Signs Temp Pulse Pulse Resp BP Pulse Ox 01/17/20 15:32 36.7 C 99 H 18 136/78 94 01/17/20 10:57 36.7 C 105 H 18 121/75 94 01/17/20 07:49 95 H 01/17/20 07:34 36.6 C 94 H 18 120/86 96 Laboratory Results Laboratory Results - last 24 hr 01/17/20 01/17/20 06:13 06:13 WBC 2.27 L RBC 2.73 L Hgb 7.9 L Hct 23.4 L MCV 85.7 MCH 28.9 MCHC 33.8 RDW Std Deviation 46.9 H RDW Coeff of Anjelica 15.3 H Plt Count 98 L MPV 10.5 H Immature Gran % (Auto) 7.5 Neut % (Auto) 39.7 Lymph % (Auto) 19.8 [place] % (Auto) 32.2 Eos % (Auto) 0.4 Baso % (Auto) 0.4 Neut # (Auto) 0.90 L* Lymph # (Auto) 0.45 L [place] # (Auto) 0.73 H Eos # (Auto) 0.01 Baso # (Auto) 0.01 Immature Gran # (Auto) 0.17 H Absolute Nucleated RBC 0.06 H Nucleated RBC % (auto) 2.5 Toxic Granulation 3+ Rouleaux 1+ Sodium 140 Potassium 3.0 L Chloride 104 Carbon Dioxide 30 Anion Gap 6.0 BUN 8 Creatinine 0.66 Est Cr Clr Drug Dosing 99.6 Est GFR ( Amer) 108.2 Est GFR (Non-Af Amer) 93.4 BUN/Creatinine Ratio 12.2 Glucose 88 Calcium 8.3 L (1) Neutropenia Neutropenia type: secondary to cancer chemotherapy Qualified Code(s): D70.1 - Agranulocytosis secondary to cancer chemotherapy; T45.1X5A - Adverse effect of antineoplastic and immunosuppressive drugs, initial encounter
[2020-01-17] MEDS: SUCRALFATE 1 GM/10 ML UDC PO SCH ×2 (16:49→21:58)
[2020-01-17] MEDS: CLOPIDOGREL BISULFATE 75 MG TAB PO SCH (21:58)
[2020-01-18] MEDS: CEFEPIME 2,000 MG in SYRINGE 0 ML IV SCH ×3 (00:32→18:19)
[2020-01-18] MEDS: PROMETHAZINE HCL 6.25 MG in SODIUM CHLORIDE 0.9% 50 ML IV PRN ×2 (04:19→22:17)
[2020-01-18] MEDS: HEPARIN 100 UNIT/ML 5ML FLUSH FLUSH PRN ×2 (06:07→10:44)
[2020-01-18] MEDS: HYDROmorphone INJ 0.5 MG/0.5 ML SYR IV PRN ×5 (06:14→23:36)
[2020-01-18 06:21] LABS: Hematocrit (blood only) 24.7 % (37-47); Hemoglobin 8.1 g/dL (12.0-16.0); Mean Corpuscular Hemoglobin 28.3 pg (25-34); Mean Corpuscular Hgb Conc 32.8 g/dL (32-36); Mean Corpuscular Volume 86.4 fL (80-100); Mean Platelet Volume 10.4 fL (7.4-10.4); Nucleated RBC # (auto) 0.07 K/uL (0-0); Nucleated RBC % (auto) 2.3 %; Platelet Count 119 K/uL (130-400); RDW Coefficient of Variation 15.5 % (11.5-14.5); RDW Standard Deviation 48.1 fL (36.4-46.3); Red Blood Count 2.86 M/uL (4.2-5.4); White Blood Count 3.08 K/uL (4.8-10.8)
[2020-01-18 06:53] LABS: BUN Creatinine Ratio 11.7 (10-20); Calcium 8.2 mg/dl (8.5-10.1); Creatinine Clr Calc Pharmacy 98.1 ml/min; Est GFR (African American) 107.7; Est GFR (Non-African American) 92.9
[2020-01-18 07:17] LABS: Basophils # (auto) 0.01 K/uL (0-0.2); Basophils % (auto) 0.3 %; Eosinophils # (auto) 0.02 K/uL (0-0.5); Eosinophils % (auto) 0.6 %; Giant Platelets 1+; Immature Granulocytes % (auto) 6.5 %; Lymphocytes # (auto) 0.62 K/uL (1.2-3.4); Lymphocytes % (auto) 20.1 %; Monocytes # (auto) 0.77 K/uL (0.11-0.59); Neutrophils # (auto) 1.46 K/uL (1.4-6.5); Neutrophils % (auto) 47.5 %; Toxic Granulation 3+
[2020-01-18] MEDS: UMECLIDINIUM/VILANTEROL 62.5/25MCG 7 PUFFS/INHALER INH SCH (08:25)
[2020-01-18] MEDS: SUCRALFATE 1 GM/10 ML UDC PO SCH ×4 (08:25→20:40)
[2020-01-18] MEDS: ASPIRIN 81 MG ECTAB PO SCH (08:26)
[2020-01-18] MEDS: NICOTINE 14 MG/24 HR PATCH TD SCH (08:27)
[2020-01-18] MEDS: NYSTATIN SUSP 500,000 U/5 ML UDC PO SCH ×4 (08:28→20:41)
[2020-01-18] MEDS ORDERED: FOSAPREPITANT DIMEGLUMINE 150 MG in SODIUM CHLORIDE 0.9% 145 ML IV ONE (16:00)
[2020-01-18] MEDS: POTASSIUM CHLORIDE / WTR 10 MEQ/100 ML PLCT IV SCH ×3 (16:27→18:19)
[2020-01-18] MEDS: MAGNESIUM SULFATE / D5W 1 GM/100 ML BAG IV SCH (18:19)
[2020-01-18] MEDS: MAGNESIUM CHLORIDE 64MG DELAYED REL TAB PO SCH (20:40)
[2020-01-18] MEDS: CLOPIDOGREL BISULFATE 75 MG TAB PO SCH (20:40)
--- NOTE | 2020-01-18 21:06 | Hospitalist Progress Note ---
Date of Service delayed entry date of service below January 18, 2020 Assessment & Plan (1) Intractable nausea and vomiting: With dehydration, hypokalemia, hypomagnesemia Lung Cancer on chemo- and radiation- therapy last Chemotherapy session 2 weeks ago (3rd session) GI consulted-->Given 1 dose of Emend Nausea resolved, tolerating diet well Add Carafate 4 times daily for possible radiation esophagitis Continue promethazine scheduled Transitioned from Diflucan to Nystatin -- nausea recurring, 1 dose of Emend ordered monitor Continue soft diet (2) Acute dehydration: Acute Kidney disease on Chronic Kidney Disease stage 3 -from poor appetite and fluid losses from dehydration MARIA R resolved with hydration (3) Hypokalemia: Electrolyte deficits due to GI losses and poor oral intake Admission serum potassium 2.7 Potassium 3.0 Replace with IV potassium Encouraged to order potassium rich food (4) Hypomagnesemia: Mag was 0.9 on admission 1.2 today IV Mg ordered Resolved (5) Small cell lung cancer in adult: per Dr. Simpsno's notes: Discussed with Dr Anibal Hebert on 01/12/20 He recommend to continue radiation therapy if able, to continue cefepime for now while inpatient for prophylaxis for chemotherapy induced neutropenia, given history of neutropenic fevers Rad onc consult--> patient had 2 sessions of radiation therapy so far (6) Pancytopenia: (7) Neutropenia: ANC improving discussed with Oncologist Dr. Hebert- recommend to continue Cefepime until ANC f urther improves Hg 7.1 now 7.8 minimally symptomatic transfuse for Hg < 7 Plt improving Resume aspirin and Plavix in light of recent CVA discussed with Dr. 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 Simpson's notes: -Patient was discharged on 01/08/2020 after that admission for neurological deficits with speech -Initially held antiplatelets due to significant thrombocytopenia. Discussed this with patient and she was ok with it. Resume aspirin for now as platelet is improved. -Resume aspirin and Plavix in light of increasing platelet discussed with Dr. Hebert DVT prophylaxis: SCDs for now Encouraged ambulation Disposition lives with at home PT/OT eval: may need rehab Admission and Anticipated Discharge Date Admission Date: January 11, 2020 Subjective ff up for nausea/vomiting, pancytopenia etc seen resting in bed, comfortable states she started to have nausea late in the day also reports burning sensation in the esophagus no dysphagia no other symptoms Review of Systems Review of Systems: All systems reviewed & are unremarkable except as noted in Subjective Physical Exam Physical Exam: General- oriented x 3, not in distress, speaks in sentences with no effort or accessory muscle use Eyes- anicteric Neck- no JVD Lungs- clear breath sounds bilaterally Heart- normal rate, regular rhythm; no murmurs Abdomen- normal bowel sounds, nondistended, soft, nontender Extremities- no pretibial edema, no calf tenderness Neuro- alert, oriented x 3; no gross focal neurologic deficits Skin- warm & dry Results & Data Results & Data ([facility]) Vital Signs (Past 12 Hours) Vital Signs Temp Pulse Pulse Resp BP Pulse Ox 01/18/20 19:49 36.9 C 104 H 20 139/73 93 01/18/20 16:00 130 H 01/18/20 12:00 36.6 C 101 H 18 116/75 95 Laboratory Results noted and reviewed (1) Neutropenia Neutropenia type: secondary to cancer chemotherapy Qualified Code(s): D70.1 - Agranulocytosis secondary to cancer chemotherapy; T45.1X5A - Adverse effect of antineoplastic and immunosuppressive drugs, initial encounter
[2020-01-19] MEDS: CEFEPIME 2,000 MG in SYRINGE 0 ML IV SCH ×4 (01:39→23:47)
[2020-01-19] MEDS: HYDROmorphone INJ 0.5 MG/0.5 ML SYR IV PRN ×5 (04:15→22:49)
[2020-01-19 06:32] LABS: Hematocrit (blood only) 24.2 % (37-47); Mean Corpuscular Hemoglobin 28.7 pg (25-34); Mean Corpuscular Hgb Conc 33.1 g/dL (32-36); Mean Corpuscular Volume 86.7 fL (80-100); Nucleated RBC # (auto) 0.09 K/uL (0-0); Nucleated RBC % (auto) 2.8 %; Platelet Count 158 K/uL (130-400); RDW Coefficient of Variation 15.9 % (11.5-14.5); RDW Standard Deviation 48.2 fL (36.4-46.3); Red Blood Count 2.79 M/uL (4.2-5.4); White Blood Count 3.16 K/uL (4.8-10.8)
[2020-01-19 07:04] LABS: Basophils # (auto) 0.01 K/uL (0-0.2); Basophils % (auto) 0.3 %; Eosinophils # (auto) 0.02 K/uL (0-0.5); Eosinophils % (auto) 0.6 %; Immature Granulocytes # (auto) 0.28 K/uL (0.00-0.02); Immature Granulocytes % (auto) 8.9 %; Lymphocytes # (auto) 0.57 K/uL (1.2-3.4); Monocytes # (auto) 0.91 K/uL (0.11-0.59); Monocytes % (auto) 28.8 %; Neutrophils # (auto) 1.37 K/uL (1.4-6.5); Neutrophils % (auto) 43.4 %; Polychromasia 1+; Toxic Granulation 1+
[2020-01-19 07:11] LABS: Calcium 8.5 mg/dl (8.5-10.1); Creatinine Clr Calc Pharmacy 102.3 ml/min; Est GFR (African American) 109.3; Est GFR (Non-African American) 94.3
[2020-01-19] MEDS: SUCRALFATE 1 GM/10 ML UDC PO SCH ×4 (07:35→20:27)
[2020-01-19] MEDS: PROMETHAZINE HCL 6.25 MG in SODIUM CHLORIDE 0.9% 50 ML IV PRN ×2 (07:56→21:01)
[2020-01-19] MEDS: NYSTATIN SUSP 500,000 U/5 ML UDC PO SCH ×4 (07:57→20:28)
[2020-01-19] MEDS: NICOTINE 14 MG/24 HR PATCH TD SCH (07:57)
[2020-01-19] MEDS: UMECLIDINIUM/VILANTEROL 62.5/25MCG 7 PUFFS/INHALER INH SCH (07:58)
[2020-01-19] MEDS: ASPIRIN 81 MG ECTAB PO SCH (07:58)
[2020-01-19] MEDS: MAGNESIUM CHLORIDE 64MG DELAYED REL TAB PO SCH ×2 (07:58→20:27)
[2020-01-19] MEDS: HYDROCODONE/ACETAMOPHEN 5/325MG TAB PO PRN ×3 (10:45→20:36)
[2020-01-19] MEDS: HEPARIN 100 UNIT/ML 5ML FLUSH FLUSH PRN ×4 (12:27→17:15)
[2020-01-19] MEDS: DOCUSATE SODIUM/SENNA 50/8.6MG TAB PO SCH (20:24)
[2020-01-19] MEDS: POTASSIUM CHLORIDE / WTR 10 MEQ/100 ML PLCT IV SCH ×4 (20:24→23:45)
[2020-01-19] MEDS: CLOPIDOGREL BISULFATE 75 MG TAB PO SCH (20:27)
--- NOTE | 2020-01-19 21:15 | Hospitalist Progress Note ---
Date of Service January 19, 2020 Assessment & Plan (1) Intractable nausea and vomiting: With dehydration, hypokalemia, hypomagnesemia Lung Cancer on chemo- and radiation- therapy last Chemotherapy session 2 weeks ago (3rd session) GI consulted-->Given 1 dose of Emend Nausea resolved, tolerating diet well Add Carafate 4 times daily for possible radiation esophagitis Continue promethazine scheduled Transitioned from Diflucan to Nystatin -- nausea recurring, 1 dose of Emend ordered still has nausea will re-consult GI Magic Swizzle ordered Continue soft diet (2) Acute dehydration: Acute Kidney disease on Chronic Kidney Disease stage 3 -from poor appetite and fluid losses from dehydration MARIA R resolved with hydration (3) Hypokalemia: Electrolyte deficits due to GI losses and poor oral intake Admission serum potassium 2.7 Potassium 3.0 Replace with IV potassium Encouraged to order potassium rich food (4) Hypomagnesemia: Mag was 0.9 on admission 1.2 today IV Mg ordered Resolved (5) Small cell lung cancer in adult: per Dr. Simpson's notes: Discussed with Dr Anibal Hebert on 01/12/20 He recommend to continue radiation therapy if able, to continue cefepime for now while inpatient for prophylaxis for chemotherapy induced neutropenia, given history of neutropenic fevers Rad onc consult--> patient had 2 sessions of radiation therapy so far (6) Pancytopenia: (7) Neutropenia: ANC improving discussed with Oncologist Dr. Hebert- recommend to continue Cefepime until ANC further improves Hg 7.1 now 7.8 minimally symptomatic transfuse for Hg < 7 Plt improving Resume aspirin and Plavix in light of recent CVA discussed with Dr. 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 Simpson's notes: -Patient was discharged on 01/08/2020 after that admission for neurological deficits with speech -Initially held antiplatelets due to significant thrombocytopenia. Discussed this with patient and she was ok with it. Resume aspirin for now as platelet is improved. -Resume aspirin and Plavix in light of increasing platelet discussed with Dr. Hebert DVT prophylaxis: SCDs for now Encouraged ambulation Disposition lives with at home PT/OT eval: may need rehab Admission and Anticipated Discharge Date Admission Date: January 11, 2020 Subjective ff up for nausea, etc seen resting in bed, not in distress reports nausea again this evening, burning sensation in the esophagus no BM x 2 days, (+) flatus no other symptoms Review of Systems Review of Systems: All systems reviewed & are unremarkable except as noted in Subjective Physical Exam Physical Exam: General- oriented x 3, not in distress, speaks in sentences with no effort or accessory muscle use Eyes- anicteric Neck- no JVD Lungs- clear BS BL Heart- normal rate, regular rhythm; no murmurs Abdomen- normal bowel sounds, nondistended, soft, nontender Extremities- no pretibial edema, no calf tenderness Neuro- alert, oriented x 3; no gross focal neurologic deficits Skin- warm & dry Results & Data Results & Data ([facility]) Vital Signs (Past 12 Hours) Vital Signs Temp Pulse Pulse Resp BP BP Pulse Ox 01/19/20 17:06 102 H 01/19/20 15:23 36.6 C 104 H 18 137/83 97 01/19/20 11:46 36.5 C 100 H 18 115/78 98 01/19/20 11:23 95 H Laboratory Results Laboratory Results - last 24 hr 01/19/20 01/19/20 05:42 05:42 WBC 3.16 L RBC 2.79 L Hgb 8.0 L Hct 24.2 L MCV 86.7 MCH 28.7 MCHC 33.1 RDW Std Deviation 48.2 H RDW Coeff of Anjelica 15.9 H Plt Count 158 MPV 11.0 H Immature Gran % (Auto) 8.9 Neut % (Auto) 43.4 Lymph % (Auto) 18.0 [place] % (Auto) 28.8 Eos % (Auto) 0.6 Baso % (Auto) 0.3 Neut # (Auto) 1.37 L Lymph # (Auto) 0.57 L [place] # (Auto) 0.91 H Eos # (Auto) 0.02 Baso # (Auto) 0.01 Immature Gran # (Auto) 0.28 H Absolute Nucleated RBC 0.09 H Nucleated RBC % (auto) 2.8 Toxic Granulation 1+ Polychromasia 1+ Sodium 142 Potassium 3.0 L Chloride 106 Carbon Dioxide 31 Anion Gap 6.0 BUN 8 Creatinine 0.64 Est Cr Clr Drug Dosing 102.3 Est GFR ( Amer) 109.3 Est GFR (Non-Af Amer) 94.3 BUN/Creatinine Ratio 13.0 Glucose 90 Calcium 8.5 (1) Neutropenia Neutropenia type: secondary to cancer chemotherapy Qualified Code(s): D70.1 - Agranulocytosis secondary to cancer chemotherapy; T45.1X5A - Adverse effect of antineoplastic and immunosuppressive drugs, initial encounter
[2020-01-20] MEDS: HEPARIN 100 UNIT/ML 5ML FLUSH FLUSH PRN ×3 (00:48→13:02)
[2020-01-20] MEDS: HYDROmorphone INJ 0.5 MG/0.5 ML SYR IV PRN ×5 (03:18→21:25)
[2020-01-20 06:48] LABS: Hematocrit (blood only) 23.9 % (37-47); Hemoglobin 7.8 g/dL (12.0-16.0); Mean Corpuscular Hemoglobin 28.6 pg (25-34); Mean Corpuscular Hgb Conc 32.6 g/dL (32-36); Mean Corpuscular Volume 87.5 fL (80-100); Mean Platelet Volume 10.5 fL (7.4-10.4); Nucleated RBC # (auto) 0.04 K/uL (0-0); Nucleated RBC % (auto) 1.3 %; Platelet Count 166 K/uL (130-400); RDW Coefficient of Variation 17.1 % (11.5-14.5); RDW Standard Deviation 49.2 fL (36.4-46.3); Red Blood Count 2.73 M/uL (4.2-5.4); White Blood Count 2.94 K/uL (4.8-10.8)
[2020-01-20 07:19] LABS: Basophils # (auto) 0.01 K/uL (0-0.2); Basophils % (auto) 0.3 %; Eosinophils # (auto) 0.03 K/uL (0-0.5); Immature Granulocytes # (auto) 0.18 K/uL (0.00-0.02); Immature Granulocytes % (auto) 6.1 %; Lymphocytes # (auto) 0.91 K/uL (1.2-3.4); Monocytes # (auto) 0.35 K/uL (0.11-0.59); Monocytes % (auto) 11.9 %; Neutrophils # (auto) 1.46 K/uL (1.4-6.5); Neutrophils % (auto) 49.7 %; Polychromasia 1+; Toxic Granulation 3+
[2020-01-20 07:21] LABS: BUN Creatinine Ratio 13.7 (10-20); Calcium 8.6 mg/dl (8.5-10.1); Creatinine Clr Calc Pharmacy 100.9 ml/min; Est GFR (African American) 108.7; Est GFR (Non-African American) 93.8; Potassium 3.3 mmol/L (3.5-5.1)
--- NOTE | 2020-01-20 09:28 | Gastroenterology Progress Note ---
Date of Service January 20, 2020 Assessment & Plan (1) Intractable nausea and vomiting: Pt is a 64 y/o female admitted w/ neutropenic fever, small cell lung ca currently undergoing chemo and XRT seen for n/v, weight loss which she is unsure if outdate her chemo/radiation - ABD US - KUB - If no acute fidnings on ABD US and KUB, can resume diet then - NPO after midnight for EGD tomorrow on 01/21/20 pending patient agreement - she did not want an egd tomorrow and wanted to see how she would respond to potential medical therapy. - Protonix 40mg daily - Continue Phenergan prn. She said it works better than Zofran - Add a dose of Emend 115mg IV today. Consider giving med once her chemo is resumed: 125mg PO x 1 on day 1 of chemo, then 80mg PO qAM on days 2-3 of chemo. Thank you for allowing us to participate in the care of this patient. Please call with any acute changes, questions or concerns. Please see addendum below with additional recommendation from my supervising physician. Admission and Anticipated Discharge Date Admission Date: January 11, 2020 Supervising Physician Co-Signing Physician Notes I have seen and examined the patient and discussed the management with VICKI Silver. 64 yo fm with lung cancer diagnosed in summer, on chemo/radiation, GI consulted for worsening nausea and vomiting. PE - wearing a hat in nad, HEENT - perrla, CV- rrr no mrg, Pulm - CTAB, Abd - soft nt nd +bs, port ni her chest Labs reviewed Abd helene and kub pending IV Ppi, iv emend, consider liquid carafate, possibly addition of diflucan. She wants to hold on egd for now- if she reconsiders egd, we can consider an egd on . Subjective GI asked to re-evaluate She is unsure if her UGI symptoms started before or after chemo/radiation Notes nausea and a burning sensation between her breasts which radiates up her esophagus She has had intermittent vomiting as well as regurgitation No black/bloody emesis She is constipated, endorses no BM in over 72h Review of Systems Constitutional: no fever and no weakness Respiratory: no cough and no dyspnea Cardiovascular: no chest pain and no palpitations Gastrointestinal: no abdominal pain, no nausea, no coffee ground emesis, no hematemesis, no dysphagia, no blood in stools and no melena Physical Exam Constitutional: + ill appearing; no acute distress chronically ill appearing Respiratory: normal respiratory effort, lungs clear to auscultation Cardiovascular: Rate/Rhythm: regular rate Gastrointestinal (Abdomen): normal bowel sounds, soft, nontender, no hepatosplenomegaly Results & Data ([facility]) Vital Signs (Past 12 Hours) Vital Signs Temp Pulse Pulse Resp BP Pulse Ox 01/20/20 07:47 36.5 C 101 H 17 118/74 95 01/20/20 03:28 36.8 C 106 H 18 138/85 96 01/20/20 00:07 109 H 01/19/20 23:50 104 H 01/19/20 23:14 36.7 C 108 H 18 115/78 97 Laboratory Results 01/20/20 01/20/20 Range/Units 06:21 06:21 WBC 2.94 L (4.8-10.8) K/uL RBC 2.73 L (4.2-5.4) M/uL Hgb 7.8 L (12.0-16.0) g/dL Hct 23.9 L (37-47) % MCV 87.5 (80-100) fL MCH 28.6 (25-34) pg MCHC 32.6 (32-36) g/dL RDW Std Deviation 49.2 H (36.4-46.3) fL RDW Coeff of Anjelica 17.1 H (11.5-14.5) % Plt Count 166 (130-400) K/uL MPV 10.5 H (7.4-10.4) fL Immature Gran % (Auto) 6.1 % Neut % (Auto) 49.7 % Lymph % (Auto) 31.0 % [place] % (Auto) 11.9 % Eos % (Auto) 1.0 % Baso % (Auto) 0.3 % Neut # (Auto) 1.46 (1.4-6.5) K/uL Lymph # (Auto) 0.91 L (1.2-3.4) K/uL [place] # (Auto) 0.35 (0.11-0.59) K/uL Eos # (Auto) 0.03 (0-0.5) K/uL Baso # (Auto) 0.01 (0-0.2) K/uL Immature Gran # (Auto) 0.18 H (0.00-0.02) K/uL Absolute Nucleated RBC 0.04 H (0-0) K/uL Nucleated RBC % (auto) 1.3 % Toxic Granulation 3+ Polychromasia 1+ Sodium 141 (136-145) mmol/L Potassium 3.3 L (3.5-5.1) mmol/L Chloride 107 (98-107) mmol/L Carbon Dioxide 28 (21-32) mmol/L Anion Gap 6.0 (3-11) BUN 9 (7-18) mg/dl Creatinine 0.65 (0.6-1.2) mg/dl Est Cr Clr Drug Dosing 100.9 ml/min Est GFR ( Amer) 108.7 Est GFR (Non-Af Amer) 93.8 BUN/Creatinine Ratio 13.7 (10-20) Glucose 86 (70-99) mg/dl Calcium 8.6 (8.5-10.1) mg/dl
--- NOTE | 2020-01-20 10:29 | XRay Report ---
KUB HISTORY: assess stool burden, nausea w/ constipation COMPARISON: KUB 01/04/2020. FINDINGS: The bowel gas pattern is unremarkable. There are no dilated loops of small bowel to suggest an obstruction. No renal calculi. No ureteral calculi. No pneumoperitoneum or pneumatosis. There is a small to moderate amount of well-formed stool seen throughout the colon and rectum. This has sligh tly progressed in the interval. Mild vascular calcifications are noted within the pelvis. IMPRESSION: There is a small to moderate amount of well-formed stool seen throughout the colon and rectum. This h as slightly progressed in the interval. ACT 112: Negative or not required by law. Electronically signed by: Avni Gongora M.D. 01/20/2020 10:28 AM
--- NOTE | 2020-01-20 10:47 | Ultrasound Report ---
BILIARY ULTRASOUND CLINICAL HISTORY: nausea/vomiting COMPARISON STUDY: CT scan dated 12/23/2019 FINDINGS: The pancreas appears normal as visualized. The gallbladder appears sonographically normal. There is no ductal dilatation. The common bile duct m easures 5 mm. There is no right-sided hydronephrosis. No hepatic lesions are delineated. IMPRESSION: Normal biliary ultrasound. ACT 112: Negative or not required by law. Electronically signed by: Derek Vasquez M.D. 01/20/2020 10:45 AM
[2020-01-20] MEDS: NYSTATIN SUSP 500,000 U/5 ML UDC PO SCH ×4 (10:54→20:10)
[2020-01-20] MEDS: SUCRALFATE 1 GM/10 ML UDC PO SCH ×4 (10:54→20:10)
[2020-01-20] MEDS: PROMETHAZINE HCL 6.25 MG in SODIUM CHLORIDE 0.9% 50 ML IV PRN ×2 (10:54→18:54)
[2020-01-20] MEDS: UMECLIDINIUM/VILANTEROL 62.5/25MCG 7 PUFFS/INHALER INH SCH (10:55)
[2020-01-20] MEDS: CEFEPIME 2,000 MG in SYRINGE 0 ML IV SCH ×2 (10:56→16:37)
[2020-01-20] MEDS: DOCUSATE SODIUM/SENNA 50/8.6MG TAB PO SCH (10:56)
[2020-01-20] MEDS: ASPIRIN 81 MG ECTAB PO SCH (10:57)
[2020-01-20] MEDS: NICOTINE 14 MG/24 HR PATCH TD SCH (10:57)
[2020-01-20] MEDS: HYDROCODONE/ACETAMOPHEN 5/325MG TAB PO PRN ×2 (10:57→23:24)
[2020-01-20] MEDS: MAGNESIUM CHLORIDE 64MG DELAYED REL TAB PO SCH ×2 (10:57→20:10)
[2020-01-20] MEDS: CLOPIDOGREL BISULFATE 75 MG TAB PO SCH (20:12)
--- NOTE | 2020-01-20 20:50 | Hospitalist Progress Note ---
Date of Service January 20, 2020 Assessment & Plan (1) Intractable nausea and vomiting: With dehydration, hypokalemia, hypomagnesemia Lung Cancer on chemo- and radiation- therapy last Chemotherapy session 2 weeks ago (3rd session) Earlier during course of admission, nausea improved with 1 dose of Emend GI consulted, did not recommend EGD Nausea resolved, tolerating diet well Added Carafate 4 times daily for possible radiation esophagitis Continued promethazine scheduled Transitioned from Diflucan to Nystatin 01/19/2020, patient's nausea worsened again, with burning sensation over the esophageal area GI consulted, continue to monitor patient for now If without improvement, EGD on Continue soft diet (2) Acute dehydration: Acute Kidney disease on Chronic Kidney Disease stage 3 -from poor appetite and fluid losses from dehydration MARIA R resolved with hydration (3) Hypokalemia: Electrolyte deficits due to GI losses and poor oral intake Admission serum potassium 2.7 Potassium 3.3 Replace with IV potassium Patient declines oral potassium-cannot tolerate oral encouraged to order potassium rich food (4) Hypomagnesemia: Mag was 0.9 on admission Replaced (5) Small cell lung cancer in adult: per Dr. Simpson's notes: Discussed with Dr Anibal Hebert on 01/12/20 He recommend to continue radiation therapy if able, to continue cefepime for now while inpatient for prophylaxis for chemotherapy induced neutropenia, given history of neutropenic fevers Rad onc consult--> patient had 3 sessions of radiation therapy so far while admitted (6) Pancytopenia: (7) Neutropenia: ANC improving, now 1.[address] Hebert- placed on Cefepime until ANC further improves possible d/c Cefepime tomrrow Hg 7.1--> now 7.8 minimally symptomatic transfuse for Hg < 7 Plt improving, noq 166 Resumed aspirin and Plavix in light of recent CVA discussed with Dr. 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 Simpson's notes: -Patient was discharged on 01/08/2020 after that admission for neurological deficits with speech -Initially held antiplatelets due to significant thrombocytopenia. Discussed this with patient and she was ok with it. Resume aspirin for now as platelet is improved. -Resume aspirin and Plavix in light of increasing platelet discussed with Dr. Hebert DVT prophylaxis: start heparin SC Encouraged ambulation Disposition lives with at home PT/OT eval: may need rehab Admission and Anticipated Discharge Date Admission Date: January 11, 2020 Subjective Follow-up for recurrent nausea and vomiting, on chemotherapy and radiation therapy for lung cancer Seen resting in bed, not in distress States nausea and burning sensation of the esophageal area seems to be improved today No shortness of breath, palpitations, dizziness Appetite is okay No other symptom Review of Systems Review of Systems: All systems reviewed & are unremarkable except as noted in Subjective Physical Exam Physical Exam: General- oriented x 3, not in distress, speaks in sentences with no effort or accessory muscle use Somewhat weak Eyes- anicteric Neck- no JVD Lungs- clear breath sounds bilaterally, no rales/wheezes Heart- normal rate, regular rhythm; no murmurs Abdomen- normal bowel sounds, nondistended, soft, nontender Extremities- no pretibial edema, no calf tenderness Neuro- alert, oriented x 3; no gross focal neurologic deficits Skin- warm & dry Results & Data Results & Data ([facility]) Vital Signs (Past 12 Hours) Vital Signs Temp Pulse Pulse Resp BP Pulse Ox 01/20/20 19:46 36.7 C 103 H 18 144/87 H 97 01/20/20 18:07 130 H 01/20/20 15:52 36.6 C 116 H 18 123/81 95 01/20/20 11:52 36.7 C 103 H 18 134/84 93 Laboratory Results Laboratory Results - last 24 hr 01/20/20 01/20/20 01/20/20 06:21 06:21 13:50 WBC 2.94 L RBC 2.73 L Hgb 7.8 L Hct 23.9 L MCV 87.5 MCH 28.6 MCHC 32.6 RDW Std Deviation 49.2 H RDW Coeff of Anjelica 17.1 H Plt Count 166 MPV 10.5 H Immature Gran % (Auto) 6.1 Neut % (Auto) 49.7 Lymph % (Auto) 31.0 [facility] % (Auto) 11.9 Eos % (Auto) 1.0 Baso % (Auto) 0.3 Neut # (Auto) 1.46 Lymph # (Auto) 0.[address] [facility] # (Auto) 0.35 Eos # (Auto) 0.03 Baso # (Auto) 0.01 Immature Gran # (Auto) 0.18 H Absolute Nucleated RBC 0.04 H Nucleated RBC % (auto) 1.3 Toxic Granulation 3+ Polychromasia 1+ Sodium 141 Potassium 3.3 L Chloride 107 Carbon Dioxide 28 Anion Gap 6.0 BUN 9 Creatinine 0.65 Est Cr Clr Drug Dosing 100.9 Est GFR ( Amer) 108.7 Est GFR (Non-Af Amer) 93.8 BUN/Creatinine Ratio 13.7 Glucose 86 Calcium 8.6 COVID-19 Eval Order Covid19 [facility] SARS-CoV-2, RNA, NAAT 01/20/20 13:50 WBC RBC Hgb Hct MCV MCH MCHC RDW Std Deviation RDW Coeff of Anjelica Plt Count MPV Immature Gran % (Auto) Neut % (Auto) Lymph % (Auto) [facility] % (Auto) Eos % (Auto) Baso % (Auto) Neut # (Auto) Lymph # (Auto) [facility] # (Auto) Eos # (Auto) Baso # (Auto) Immature Gran # (Auto) Absolute Nucleated RBC Nucleated RBC % (auto) Toxic Granulation Polychromasia Sodium Potassium Chloride Carbon Dioxide Anion Gap BUN Creatinine Est Cr Clr Drug Dosing Est GFR ( Amer) Est GFR (Non-Af Amer) BUN/Creatinine Ratio Glucose Calcium COVID-19 Eval Order SARS-CoV-2, RNA, NAAT NEGATIVE (1) Neutropenia Neutropenia type: secondary to cancer chemotherapy Qualified Code(s): D70.1 - Agranulocytosis secondary to cancer chemotherapy; T45.1X5A - Adverse effect of antineoplastic and immunosuppressive drugs, initial encounter
[2020-01-20] MEDS: NSS + 20MEQ KCL 20 MEQ/1,000 ML BAG IV SCH (21:23)
[2020-01-20] MEDS: POTASSIUM CHLORIDE / WTR 10 MEQ/100 ML PLCT IV SCH ×3 (21:25→23:16)
[2020-01-20] MEDS: HEPARIN SOD 5,000 UNIT/0.5 ML VIAL SQ SCH (22:22)
[2020-01-21] MEDS: POTASSIUM CHLORIDE / WTR 10 MEQ/100 ML PLCT IV SCH (00:23)
[2020-01-21] MEDS: CEFEPIME 2,000 MG in SYRINGE 0 ML IV SCH ×2 (01:24→09:55)
[2020-01-21] MEDS: HYDROmorphone INJ 0.5 MG/0.5 ML SYR IV PRN ×6 (01:30→23:45)
[2020-01-21] MEDS: HEPARIN SOD 5,000 UNIT/0.5 ML VIAL SQ SCH ×3 (05:52→21:50)
--- NOTE | 2020-01-21 08:15 | Communication Note ---
Date of Service: January 21, 2020 Pt out of room on both attempts to evaluate this AM. She is getting radiation this AM. No acute findings on KUB or ABD US. Will attempt to see during aft ernoon rounds. Thank you for allowing us to participate in the care of this patient. Please call with any acute changes, questions or concerns. Please see addendum below with additional recommendation from my supervising physician.
[2020-01-21] MEDS: PROMETHAZINE HCL 6.25 MG in SODIUM CHLORIDE 0.9% 50 ML IV PRN ×2 (08:53→17:30)
--- NOTE | 2020-01-21 08:53 | Gastroenterology Progress Note ---
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 She is hesitant to undergo EGD and she asked me to call her friend Abdiaziz. I discussed with him this AM - he is hesitant as well and wishes to pursue conservative measures unless EGD is urgently indicated. - No GI to diet as tolerated today - Pt adithya be kept NPO after midnight in the event she decides on diagnostic EGD 01/22/20 - she is hesitant to undergo a test requiring anesthesia - Elected for medical therapy right now - Can hold Plavix today in event she elects for EGD - Will update primary team - Protonix 40mg daily - change to bid - Continue Phenergan PRN - Would recommend consideration of Emend once her chemo is resumed - Liquid carafate QID - Miralax 1 capful daily Thank you for allowing us to participate in the care of this patient. Please call with any acute changes, questions or concerns. Please see addendum below with additional recommendation from my supervising physician. Admission and Anticipated Discharge Date Admission Date: January 11, 2020 Supervising Physician Co-Signing Physician Notes I have seen and examined the patient and discussed the management with VICKI Silver. 64 yo fm with a history of lung cancer, now on chemo/radiation, admitted initially for nausea. She has had intermittent nausea/vomiting worsening somewhat today- non bilious, non bloody. Labs reviewed She is stating that scheduled fluids have helped before with nausea/vomiting - will attempt to start that. Would increase protonix to 40 mg po bid. Schedule carafate 1 gram qid. She is extremely reluctant to undergo an egd per discussion with her today. Would hold plavix if she changes her mind regarding an egd. Clinically if she has an ulcer or gastritis - she is already on treatment with ppi bid and carafate. Subjective Pt was seen and evaluated after radiation She is nauseated and vomiting this AM No black or bloody emesis No black or bloody stools. Review of Systems Constitutional: + fatigue; no fever and no weakness Respiratory: no cough and no dyspnea Cardiovascular: no chest pain Gastrointestinal: + nausea and + vomiting; no coffee ground emesis, no hematemesis, no blood in stools and no melena Physical Exam Constitutional: + ill appearing (vomiting, clear emesis in bad); no acute distress Neck: trachea midline Respiratory: normal respiratory effort Gastrointestinal (Abdomen): Percussion/Palpation: abdomen soft; abdomen nontender, no abdominal mass and no ascites Skin: no rashes, warm and dry Results & Data ([facility]) Vital Signs (Past 12 Hours) Vital Signs Temp Pulse Pulse Resp BP Pulse Ox 01/21/20 08:00 36.8 C 98 H 19 161/80 H 94 01/21/20 07:13 98 H 01/21/20 04:00 36.5 C 101 H 18 123/78 100 01/21/20 00:00 95 H 01/20/20 23:23 36.6 C 89 18 119/73 97 Laboratory Results 01/20/20 01/20/20 Range/Units 13:50 13:50 COVID-19 Eval Order Covid19 IDNow [facility] SARS-CoV-2, RNA, NAAT NEGATIVE (NEGATIVE)
[2020-01-21 09:42] LABS: Basophils # (auto) 0.02 K/uL (0-0.2); Basophils % (auto) 0.5 %; Eosinophils # (auto) 0.03 K/uL (0-0.5); Eosinophils % (auto) 0.8 %; Hematocrit (blood only) 25.6 % (37-47); Hemoglobin 8.5 g/dL (12.0-16.0); Immature Granulocytes # (auto) 0.15 K/uL (0.00-0.02); Immature Granulocytes % (auto) 3.9 %; Lymphocytes # (auto) 0.52 K/uL (1.2-3.4); Lymphocytes % (auto) 13.7 %; Mean Corpuscular Hemoglobin 29.3 pg (25-34); Mean Corpuscular Hgb Conc 33.2 g/dL (32-36); Mean Corpuscular Volume 88.3 fL (80-100); Mean Platelet Volume 10.8 fL (7.4-10.4); Monocytes # (auto) 0.86 K/uL (0.11-0.59); Monocytes % (auto) 22.6 %; Neutrophils # (auto) 2.22 K/uL (1.4-6.5); Neutrophils % (auto) 58.5 %; Nucleated RBC # (auto) 0.05 K/uL (0-0); Nucleated RBC % (auto) 1.3 %; Platelet Count 216 K/uL (130-400); RDW Coefficient of Variation 18.1 % (11.5-14.5); RDW Standard Deviation 50.1 fL (36.4-46.3)
[2020-01-21] MEDS: SUCRALFATE 1 GM/10 ML UDC PO SCH ×4 (09:45→21:48)
[2020-01-21] MEDS ORDERED: PANTOprazole 40 MG TAB PO SCH (09:45)
[2020-01-21] MEDS: UMECLIDINIUM/VILANTEROL 62.5/25MCG 7 PUFFS/INHALER INH SCH (09:45)
[2020-01-21] MEDS: ASPIRIN 81 MG ECTAB PO SCH (09:46)
[2020-01-21] MEDS: NICOTINE 14 MG/24 HR PATCH TD SCH (09:46)
[2020-01-21] MEDS: NYSTATIN SUSP 500,000 U/5 ML UDC PO SCH ×4 (09:46→21:48)
[2020-01-21] MEDS: DOCUSATE SODIUM/SENNA 50/8.6MG TAB PO SCH (09:47)
[2020-01-21 10:04] LABS: BUN Creatinine Ratio 14.6 (10-20); Calcium 8.1 mg/dl (8.5-10.1); Creatinine Clr Calc Pharmacy 123.7 ml/min; Est GFR (African American) 116.3; Est GFR (Non-African American) 100.3; Magnesium 1.3 mg/dl (1.8-2.4); Potassium 3.6 mmol/L (3.5-5.1)
[2020-01-21] MEDS: NSS + 20MEQ KCL 20 MEQ/1,000 ML BAG IV SCH ×2 (10:05→21:47)
[2020-01-21] MEDS: MAGNESIUM CHLORIDE 64MG DELAYED REL TAB PO SCH ×2 (11:15→21:49)
[2020-01-21] MEDS: PANTOprazole 40 MG TAB PO SCH (21:49)
--- NOTE | 2020-01-21 23:11 | Communication Note ---
Date of Service: January 21, 2020 chart reviewed done only : hx of metastatic small cell lung ca on chemo and rad therapy admitted with intractable nausea and vomiting symptoms has improved GI following , pt refused EGD recommends continue supportive care with antiemetics and bowel rest advance diet as tolerated
[2020-01-22] MEDS ORDERED: ONDANSETRON INJ 2 MG/ML 2 ML VIAL IV STA (00:24)
[2020-01-22] MEDS ORDERED: ONDANSETRON INJ 2 MG/ML 2 ML VIAL ONE (03:35)
[2020-01-22] MEDS: HEPARIN SOD 5,000 UNIT/0.5 ML VIAL SQ SCH ×2 (03:45→13:49)
[2020-01-22] MEDS: HYDROmorphone INJ 0.5 MG/0.5 ML SYR IV PRN ×7 (03:53→23:46)
[2020-01-22 07:49] LABS: BUN Creatinine Ratio 10.4 (10-20); Calcium 8.4 mg/dl (8.5-10.1); Creatinine Clr Calc Pharmacy 106.2 ml/min; Est GFR (African American) 110.4; Est GFR (Non-African American) 95.3; Magnesium 1.1 mg/dl (1.8-2.4); Potassium 3.7 mmol/L (3.5-5.1)
[2020-01-22] MEDS: PROMETHAZINE HCL 12.5 MG in SODIUM CHLORIDE 0.9% 50 ML IV PRN (08:24)
[2020-01-22] MEDS: NICOTINE 14 MG/24 HR PATCH TD SCH (08:30)
--- NOTE | 2020-01-22 08:30 | Gastroenterology Progress Note ---
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 She is hesitant to undergo EGD and she asked me to call her friend Abdiaziz. I discussed with him this AM - he is hesitant as well and wishes to pursue conservative measures unless EGD is urgently indicated. - No GI to diet as tolerated today - Can continue clear liquids diet - Can resume plavix - Protonix 40mg BID - Continue Phenergan PRN - Would recommend consideration of Emend once her chemo is resumed - Liquid carafate QID - Miralax 1 capful daily Will sign off. Recall if needed. Thank you for allowing us to participate in the care of this patient. Please call with any acute changes, questions or concerns. Please see addendum below with additional recommendation from my supervising physician. Admission and Anticipated Discharge Date Admission Date: January 11, 2020 Supervising Physician Co-Signing Physician Notes I have seen and examined the patient and discussed the management with VICKI Silver. No acute complaints. PE - female in nad, heent - perrla, cv- rrr no mrg, pulm - ctab, abd - soft nt nd +bs Labs reviewed Feeling better on PPI bid, carafate 1 gram qid and fluids. She wants to eat potatoes- ok from gi perspective to advance to softs. Would keep on ppi bid and carafate 1 gram qid for next month when ready for discharge. She reports she is feeling much better today. Subjective Pt was seen and evaluated, feeling well this AM. Yet to have radiation. She typically notes she has symptoms following radiation. Currently trial of a clear liquid diet No abd pain no nausea/vomiting but some burning sensation to her esophagus Review of Systems Constitutional: no fever and no fatigue Respiratory: no cough and no dyspnea Cardiovascular: no chest pain Gastrointestinal: + pain with swallowing; no abdominal pain, no nausea, no dysphagia, no diarrhea/loose stools, no blood in stools and no melena Physical Exam Constitutional: + ill appearing (chronically ill appearing); + not well developed and no acute distress Neck: trachea midline Respiratory: normal respiratory effort Cardiovascular: Rate/Rhythm: regular rate Gastrointestinal (Abdomen): Percussion/Palpation: abdomen soft; abdomen nontender Skin: no rashes, warm and dry Results & Data ([facility]) Vital Signs (Past 12 Hours) Vital Signs Temp Pulse Pulse Resp BP Pulse Ox 01/22/20 07:18 99 H 01/22/20 04:33 36.6 C 105 H 18 142/85 H 95 01/22/20 00:00 37.0 C 108 H 106 H 18 142/88 H 95
[2020-01-22] MEDS: UMECLIDINIUM/VILANTEROL 62.5/25MCG 7 PUFFS/INHALER INH SCH (10:01)
[2020-01-22] MEDS: HYDROCODONE/ACETAMOPHEN 5/325MG TAB PO PRN (10:01)
[2020-01-22] MEDS: NYSTATIN SUSP 500,000 U/5 ML UDC PO SCH ×4 (10:02→20:41)
[2020-01-22] MEDS: SUCRALFATE 1 GM/10 ML UDC PO SCH ×4 (10:02→20:41)
[2020-01-22] MEDS: MAGNESIUM CHLORIDE 64MG DELAYED REL TAB PO SCH ×2 (10:03→20:41)
[2020-01-22] MEDS: PANTOprazole 40 MG TAB PO SCH ×2 (10:03→20:40)
[2020-01-22] MEDS: ASPIRIN 81 MG ECTAB PO SCH (10:03)
[2020-01-22] MEDS: DOCUSATE SODIUM/SENNA 50/8.6MG TAB PO SCH (10:03)
[2020-01-22] MEDS: NSS + 20MEQ KCL 20 MEQ/1,000 ML BAG IV SCH ×2 (10:36→18:55)
[2020-01-22] MEDS: MAGNESIUM SULFATE / D5W 1 GM/100 ML BAG IV SCH ×3 (12:30→16:30)
[2020-01-22] MEDS ORDERED: POTASSIUM CHLORIDE 20 MEQ in SODIUM CHLORIDE 0.9% 1000ML 1,000 ML IV SCH (18:00)
--- NOTE | 2020-01-22 18:06 | Hospitalist Progress Note ---
Date of Service January 22, 2020 Assessment & Plan (1) Intractable nausea and vomiting: symptoms has improved Xray KUB : no evidence of obstruction diet advanced solid GI consult appreciated Added Carafate 4 times daily for possible radiation esophagitis hx of Lung Cancer on chemo- and radiation- therapy last Chemotherapy session 2 weeks ago (3rd session) (2) Acute dehydration: Acute Kidney disease on Chronic Kidney Disease stage 3 -from poor appetite and fluid losses from dehydration MARIA R resolved with hydration (3) Hypokalemia: resolved (4) Hypomagnesemia: ordered 3 gm IV Mg repeat lab in am (5) Small cell lung cancer in adult: (6) Pancytopenia: (7) Neutropenia: due to metastatic ca on chemo and rad tx (8) Thrombocytopenia: bleeding noted at sub q heparin site hold sc heparin , ordered for scd and teds increase activity as tolerted History of recent CVA, LEFT CEREBRAL HEMISPHERE, 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 on last hospitalization on aspirin and plavix Encouraged ambulation Disposition update given to present at bedside possible discharge home tomorrow if clinically stable Admission and Anticipated Discharge Date Admission Date: January 11, 2020 Subjective nasusea /vomiting has resolved feels hungry has been able to tolerate clear diet , willing to try for solid diet had not had bowel movement for past 2 days Review of Systems Review of Systems: All systems reviewed & are unremarkable except as noted in HPI & below Physical Exam Physical Exam: General- oriented x 3, not in distress, speaks in sentences with no effort or accessory muscle use Somewhat weak Eyes- anicteric Neck- no JVD Lungs- clear breath sounds bilaterally, no rales/wheezes Heart- normal rate, regular rhythm; no murmurs Abdomen- normal bowel sounds, nondistended, soft, nontender Extremities- no pretibial edema, no calf tenderness Neuro- alert, oriented x 3; no gross focal neurologic deficits Skin- warm & dry Results & Data Results & Data ([facility]) Vital Signs (Past 12 Hours) Vital Signs Temp Pulse Pulse Resp BP Pulse Ox 01/22/20 15:31 36.5 C 103 H 17 121/69 97 01/22/20 12:54 36.5 C 115 H 18 109/71 99 01/22/20 08:34 36.8 C 106 H 19 137/84 96 01/22/20 07:18 99 H (1) Neutropenia Neutropenia type: secondary to cancer chemotherapy Qualified Code(s): D70.1 - Agranulocytosis secondary to cancer chemotherapy; T45.1X5A - Adverse effect of antineoplastic and immunosuppressive drugs, initial encounter
[2020-01-22] MEDS: CLOPIDOGREL BISULFATE 75 MG TAB PO SCH (20:42)
[2020-01-22] MEDS ORDERED: MAGNESIUM OXIDE 400 MG TAB PO SCH (21:00)
[2020-01-23] MEDS: HYDROmorphone INJ 0.5 MG/0.5 ML SYR IV PRN ×6 (03:08→20:26)
[2020-01-23] MEDS: NSS + 20MEQ KCL 20 MEQ/1,000 ML BAG IV SCH ×2 (06:40→20:21)
[2020-01-23 06:41] LABS: BUN Creatinine Ratio 6.2 (10-20); Creatinine Clr Calc Pharmacy 101.9 ml/min; Est GFR (African American) 108.7; Est GFR (Non-African American) 93.8; Magnesium 1.7 mg/dl (1.8-2.4)
[2020-01-23] MEDS: NICOTINE 14 MG/24 HR PATCH TD SCH (08:51)
[2020-01-23] MEDS: UMECLIDINIUM/VILANTEROL 62.5/25MCG 7 PUFFS/INHALER INH SCH (08:53)
[2020-01-23] MEDS: SUCRALFATE 1 GM/10 ML UDC PO SCH ×4 (08:53→20:24)
[2020-01-23] MEDS: PANTOprazole 40 MG TAB PO SCH ×2 (08:54→20:25)
[2020-01-23] MEDS: ASPIRIN 81 MG ECTAB PO SCH (08:54)
[2020-01-23] MEDS: NYSTATIN SUSP 500,000 U/5 ML UDC PO SCH ×4 (08:54→20:23)
[2020-01-23] MEDS: DOCUSATE SODIUM/SENNA 50/8.6MG TAB PO SCH (08:55)
[2020-01-23] MEDS: MAGNESIUM CHLORIDE 64MG DELAYED REL TAB PO SCH ×2 (08:55→20:25)
[2020-01-23] MEDS: PROMETHAZINE HCL 12.5 MG in SODIUM CHLORIDE 0.9% 50 ML IV PRN ×2 (08:58→16:58)
[2020-01-23] MEDS ORDERED: MAGNESIUM SULFATE / D5W 1 GM/100 ML BAG IV ONE (11:00)
[2020-01-23] MEDS ORDERED: hydrOXYzine HCl 25 MG TAB PO PRN (11:39)
[2020-01-23] MEDS ORDERED: ASPIRIN 81 MG ECTAB PO SCH (11:45)
[2020-01-23] MEDS ORDERED: MELATONIN 3 MG TAB PO PRN (11:50)
[2020-01-23] MEDS: POLYETHYLENE (MIRALAX) 17 GM PACK PO SCH ×2 (12:31→20:24)
[2020-01-23] MEDS: PROCHLORPERAZINE MALEATE 10 MG TAB PO PRN (12:31)
[2020-01-23] MEDS: DULoxetine HCL 60 MG CAP PO SCH (12:54)
[2020-01-23] MEDS: POTASSIUM CHLORIDE 20 MEQ/15 ML UDC PO SCH (12:55)
--- NOTE | 2020-01-23 18:14 | Hospitalist Progress Note ---
Date of Service January 23, 2020 Assessment & Plan (1) Intractable nausea and vomiting: symptoms has resolved Xray KUB : no evidence of obstruction diet advanced solid -tolrating well GI consult appreciated Added Carafate 4 times daily for possible radiation esophagitis hx of Lung Cancer on chemo- and radiation- therapy last Chemotherapy session 2 weeks ago (3rd session) (2) Acute dehydration: Acute Kidney disease on Chronic Kidney Disease stage 3 -from poor appetite and fluid losses from dehydration MARIA R resolved with hydration will cont IV fluid as pt's appetite is still poor (3) Hypokalemia: resolved (4) Hypomagnesemia: Mg 1.7 ordered 1 gm IV mg repeat lab in am (5) Small cell lung cancer in adult: follows with Dr Veronica Hebert getting raditation tx (6) Pancytopenia: (7) Neutropenia: due to metastatic ca on chemo and rad tx (8) Thrombocytopenia: bleeding noted at sub q heparin site hold sc heparin , ordered for scd and teds increase activity as tolerted History of recent CVA, LEFT CEREBRAL HEMISPHERE, 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 on last hospitalization on aspirin and plavix Encouraged ambulation Disposition d/c home when pt is clinically improved Admission and Anticipated Discharge Date Admission Date: January 11, 2020 Subjective no complain of nausea /vomiting tolerating diet chest wall and back pain has improved feels very tired and fatigued , IV fluids helped a bit , does not feel well enough to return to home Physical Exam Physical Exam: General- oriented x 3, not in distress, speaks in sentences with no effort or accessory muscle use Somewhat weak Eyes- anicteric Neck- no JVD Lungs- clear breath sounds bilaterally, no rales/wheezes Heart- normal rate, regular rhythm; no murmurs Abdomen- normal bowel sounds, nondistended, soft, nontender Extremities- no pretibial edema, no calf tenderness Neuro- alert, oriented x 3; no gross focal neurologic deficits Skin- warm & dry Results & Data Results & Data ([facility]) Vital Signs (Past 12 Hours) Vital Signs Temp Pulse Pulse Resp BP BP Pulse Ox 01/23/20 16:34 99 H 01/23/20 15:56 36.6 C 105 H 18 123/77 96 01/23/20 11:31 36.7 C 94 H 16 103/71 93 01/23/20 07:56 36.6 C 94 H 19 123/77 95 01/23/20 07:18 96 H (1) Neutropenia Neutropenia type: secondary to cancer chemotherapy Qualified Code(s): D70.1 - Agranulocytosis secondary to cancer chemotherapy; T45.1X5A - Adverse effect of antineoplastic and immunosuppressive drugs, initial encounter
[2020-01-23] MEDS: ARIPiprazole 10 MG TAB PO SCH (20:23)
[2020-01-23] MEDS: ATORVASTATIN 40 MG TAB PO SCH (20:24)
[2020-01-23] MEDS: DOCUSATE SODIUM 100 MG CAP PO SCH (20:24)
[2020-01-24] MEDS: HYDROmorphone INJ 0.5 MG/0.5 ML SYR IV PRN ×5 (00:37→23:10)
[2020-01-24] MEDS: oxyCODONE/ACETAMINOPHEN 5mg/325mg TAB PO PRN ×3 (03:49→22:47)
[2020-01-24] MEDS: PROMETHAZINE HCL 12.5 MG in SODIUM CHLORIDE 0.9% 50 ML IV PRN ×2 (06:15→23:09)
[2020-01-24 06:49] LABS: BUN Creatinine Ratio 4.8 (10-20); Calcium 8.5 mg/dl (8.5-10.1); Creatinine Clr Calc Pharmacy 114.8 ml/min; Est GFR (African American) 112.9; Est GFR (Non-African American) 97.4; Magnesium 1.4 mg/dl (1.8-2.4); Potassium 4.5 mmol/L (3.5-5.1)
[2020-01-24] MEDS: NSS + 20MEQ KCL 20 MEQ/1,000 ML BAG IV SCH ×2 (08:08→20:38)
[2020-01-24] MEDS: CLOPIDOGREL BISULFATE 75 MG TAB PO SCH (08:12)
[2020-01-24] MEDS: MULTIVITAMIN TAB PO SCH (08:12)
[2020-01-24] MEDS: DOCUSATE SODIUM/SENNA 50/8.6MG TAB PO SCH (08:13)
[2020-01-24] MEDS: PANTOprazole 40 MG TAB PO SCH ×2 (08:13→21:31)
[2020-01-24] MEDS: ASPIRIN 81 MG ECTAB PO SCH (08:13)
[2020-01-24] MEDS: POLYETHYLENE (MIRALAX) 17 GM PACK PO SCH ×2 (08:13→21:31)
[2020-01-24] MEDS: MAGNESIUM CHLORIDE 64MG DELAYED REL TAB PO SCH ×2 (08:13→21:30)
[2020-01-24] MEDS: NICOTINE 14 MG/24 HR PATCH TD SCH (08:14)
[2020-01-24] MEDS: DOCUSATE SODIUM 100 MG CAP PO SCH ×2 (08:14→21:31)
[2020-01-24] MEDS: NYSTATIN SUSP 500,000 U/5 ML UDC PO SCH ×4 (08:15→21:30)
[2020-01-24] MEDS: SUCRALFATE 1 GM/10 ML UDC PO SCH ×4 (08:15→21:30)
[2020-01-24] MEDS: UMECLIDINIUM/VILANTEROL 62.5/25MCG 7 PUFFS/INHALER INH SCH (08:15)
[2020-01-24] MEDS: POTASSIUM CHLORIDE 20 MEQ/15 ML UDC PO SCH (08:16)
[2020-01-24] MEDS: DULoxetine HCL 60 MG CAP PO SCH (08:16)
[2020-01-24] MEDS: MAGNESIUM SULFATE / D5W 1 GM/100 ML BAG IV SCH ×3 (15:10→17:33)
--- NOTE | 2020-01-24 18:13 | Hospitalist Progress Note ---
Date of Service January 24, 2020 Assessment & Plan (1) Intractable nausea and vomiting: symptoms has resolved Xray KUB : no evidence of obstruction diet advanced solid -tolrating well GI consult appreciated Added Carafate 4 times daily for possible radiation esophagitis hx of Lung Cancer on chemo- and radiation- therapy Follows with hematology oncology for outpatient [facility] Right arm swelling: No complaint of pain or discomfort, Ultrasound of right upper extremity rule out a DVT (2) Acute dehydration: Acute Kidney disease on Chronic Kidney Disease stage 3 -from poor appetite and fluid losses from dehydration MARIA R resolved with hydration will cont IV fluid as pt's appetite is still poor (3) Hypokalemia: resolved (4) Hypomagnesemia: Ordered for IV replacement repeat lab in am (5) Small cell lung cancer in adult: follows with Dr Veronica Hebert getting raditation tx (6) Pancytopenia: (7) Neutropenia: due to metastatic ca on chemo and rad tx (8) Thrombocytopenia: bleeding noted at sub q heparin site hold sc heparin , ordered for scd and teds increase activity as tolerted History of recent CVA, LEFT CEREBRAL HEMISPHERE, 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 on last hospitalization on aspirin and plavix Encouraged ambulation Disposition d/c home when pt is clinically improved Admission and Anticipated Discharge Date Admission Date: January 11, 2020 Subjective Had episode of vomiting prior to dinner, Currently does not feel nauseous no abdominal pain No fever chills Physical Exam Physical Exam: General- oriented x 3, not in distress, speaks in sentences with no effort or accessory muscle use Somewhat weak Eyes- anicteric Neck- no JVD Lungs- clear breath sounds bilaterally, no rales/wheezes Heart- normal rate, regular rhythm; no murmurs Abdomen- normal bowel sounds, nondistended, soft, nontender Extremities-left arm positive edema, swelling no tenderness Neuro- alert, oriented x 3; no gross focal neurologic deficits Skin- warm & dry Results & Data Results & Data ([facility]) Vital Signs (Past 12 Hours) Vital Signs Temp Pulse Resp BP Pulse Ox 01/24/20 16:48 36.6 C 98 H 17 140/70 93 01/24/20 11:42 36.6 C 96 H 16 141/81 H 96 01/24/20 07:29 36.5 C 97 H 16 105/73 95 (1) Neutropenia Neutropenia type: secondary to cancer chemotherapy Qualified Code(s): D70.1 - Agranulocytosis secondary to cancer chemotherapy; T45.1X5A - Adverse effect of antineoplastic and immunosuppressive drugs, initial encounter
[2020-01-24] MEDS: ARIPiprazole 10 MG TAB PO SCH (21:31)
[2020-01-24] MEDS: ATORVASTATIN 40 MG TAB PO SCH (21:31)
[2020-01-24] MEDS ORDERED: HEPARIN SODIUM/DEXTROSE 25,000 UNITS/500 ML BAG IV SCH (23:45)
[2020-01-25] MEDS ORDERED: HEPARIN 25000 UNIT/500 ML D5W IV ONE (00:23)
[2020-01-25] MEDS: Heparin IV Standard *NO* Bolus IV SCH ×2 (01:43→01:44)
[2020-01-25] MEDS: HYDROmorphone INJ 0.5 MG/0.5 ML SYR IV PRN ×5 (02:33→21:41)
[2020-01-25 05:26] LABS: Basophils # (auto) 0.02 K/uL (0-0.2); Basophils % (auto) 0.6 %; Eosinophils # (auto) 0.01 K/uL (0-0.5); Eosinophils % (auto) 0.3 %; Hematocrit (blood only) 21.8 % (37-47); Immature Granulocytes # (auto) 0.02 K/uL (0.00-0.02); Immature Granulocytes % (auto) 0.6 %; Lymphocytes % (auto) 18.9 %; Mean Corpuscular Hemoglobin 29.4 pg (25-34); Mean Corpuscular Hgb Conc 32.1 g/dL (32-36); Mean Corpuscular Volume 91.6 fL (80-100); Mean Platelet Volume 10.1 fL (7.4-10.4); Monocytes # (auto) 0.59 K/uL (0.11-0.59); Monocytes % (auto) 18.6 %; Neutrophils # (auto) 1.93 K/uL (1.4-6.5); Platelet Count 219 K/uL (130-400); RDW Coefficient of Variation 21.2 % (11.5-14.5); Red Blood Count 2.38 M/uL (4.2-5.4); White Blood Count 3.17 K/uL (4.8-10.8)
[2020-01-25 05:47] LABS: Potassium 4.4 mmol/L (3.5-5.1)
[2020-01-25 05:48] LABS: RBC Morphology Unremarkable
[2020-01-25 05:49] LABS: Magnesium 1.8 mg/dl (1.8-2.4)
[2020-01-25] MEDS: PROMETHAZINE HCL 12.5 MG in SODIUM CHLORIDE 0.9% 50 ML IV PRN ×3 (06:29→20:41)
[2020-01-25 06:44] LABS: Hemoglobin 7.7 g/dL (12.0-16.0)
[2020-01-25 07:09] LABS: Partial Thromboplastin Ratio 2.5
[2020-01-25 07:17] LABS: Partial Thromboplastin Time 68.8 Seconds (21.0-31.0)
--- NOTE | 2020-01-25 07:37 | Ultrasound Report ---
ULTRASOUND RIGHT UPPER EXTREMITY VENOUS CLINICAL HISTORY: Right arm swelling. Central venous catheter. COMPARISON STUDY: Chest x-ray dated 01/11/2020. TECHNIQUE: Real-time, grayscale, and color Doppler sonography of the deep veins of the right upper ex tremity is performed. Compression and augmentation were utilized. FINDINGS: There is occlusive deep venous thrombosis identified in the right internal jugular vein ambrosio und the central venous infusion port catheter. Occlusive deep venous thrombosis is also identified in the axillary vein and within 1 of 2 brachial veins. The subclavian vein could not be assessed due to overlying bandaging. Occlusive superficial thrombus is present in the basilic vein. Nonocclusive sup erficial thrombus is present within the cephalic vein distally. The visualized radial and ulnar veins are patent. IMPRESSION: 1. Occlusive deep venous thrombosis is present in the right internal jugular, the right axillary, and one of the right brachial veins. 2. Superficial venous thrombus is present within the cephalic and basilic veins. ACT 112: Negative or not required by law. Electronically signed by: Cruz Nj M.D. 01/25/2020 7:36 AM
[2020-01-25] MEDS: NICOTINE 14 MG/24 HR PATCH TD SCH (08:45)
[2020-01-25] MEDS: PANTOprazole 40 MG TAB PO SCH ×2 (08:45→21:14)
[2020-01-25] MEDS: DOCUSATE SODIUM 100 MG CAP PO SCH ×2 (08:45→21:14)
[2020-01-25] MEDS: ASPIRIN 81 MG ECTAB PO SCH (08:45)
[2020-01-25] MEDS: DOCUSATE SODIUM/SENNA 50/8.6MG TAB PO SCH (08:46)
[2020-01-25] MEDS: CLOPIDOGREL BISULFATE 75 MG TAB PO SCH (08:46)
[2020-01-25] MEDS: DULoxetine HCL 60 MG CAP PO SCH (08:47)
[2020-01-25] MEDS: MULTIVITAMIN TAB PO SCH (08:47)
[2020-01-25] MEDS: UMECLIDINIUM/VILANTEROL 62.5/25MCG 7 PUFFS/INHALER INH SCH (08:47)
[2020-01-25] MEDS: SUCRALFATE 1 GM/10 ML UDC PO SCH ×4 (08:47→21:14)
[2020-01-25] MEDS: NYSTATIN SUSP 500,000 U/5 ML UDC PO SCH ×4 (08:48→21:14)
[2020-01-25] MEDS: POTASSIUM CHLORIDE 20 MEQ/15 ML UDC PO SCH (08:48)
[2020-01-25] MEDS: POLYETHYLENE (MIRALAX) 17 GM PACK PO SCH ×2 (08:49→21:14)
[2020-01-25] MEDS: MAGNESIUM CHLORIDE 64MG DELAYED REL TAB PO SCH ×2 (08:50→21:41)
[2020-01-25] MEDS: NSS + 20MEQ KCL 20 MEQ/1,000 ML BAG IV SCH ×2 (09:59→23:25)
--- NOTE | 2020-01-25 12:36 | Communication Note ---
Date of Service: January 25, 2020 Right upper extremity ultrasound:: Report reviewed: Occlusive deep venous thrombosis is present in the right internal jugular/around the central venous infusion port catheter, the right axillary, and one of the right brachial veins. Patient started with IV heparin, will change to therapeutic dose of subcu Lovenox, better anticoagulation given underlying metastatic cancer DC Plavix, history of CVA on 01/05/2020, but neurology recommendation was to continue with Plavix for 21 days then continue on aspirin 81 mg daily Patient will be on therapeutic Lovenox, and aspirin 81 mg daily, Monitor H&H, Patient's over all prognosis remains poor Evy Vargas MD
[2020-01-25 13:03] LABS: Hemoglobin 7.5 g/dL (12.0-16.0); Mean Corpuscular Hemoglobin 29.6 pg (25-34); Mean Corpuscular Hgb Conc 32.6 g/dL (32-36); Mean Corpuscular Volume 90.9 fL (80-100); Red Blood Count 2.53 M/uL (4.2-5.4); White Blood Count 2.93 K/uL (4.8-10.8)
[2020-01-25 13:04] LABS: Basophils # (auto) 0.02 K/uL (0-0.2); Basophils % (auto) 0.7 %; Eosinophils # (auto) 0.01 K/uL (0-0.5); Eosinophils % (auto) 0.3 %; Immature Granulocytes # (auto) 0.02 K/uL (0.00-0.02); Immature Granulocytes % (auto) 0.7 %; Lymphocytes # (auto) 0.58 K/uL (1.2-3.4); Lymphocytes % (auto) 19.8 %; Mean Platelet Volume 9.8 fL (7.4-10.4); Monocytes % (auto) 17.1 %; Neutrophils % (auto) 61.4 %; Platelet Count 199 K/uL (130-400); RDW Coefficient of Variation 21.2 % (11.5-14.5); RDW Standard Deviation 57.9 fL (36.4-46.3)
[2020-01-25] MEDS: ENOXAPARIN 100 MG/1ML SYR SC SCH ×2 (13:29→23:53)
[2020-01-25 13:52] LABS: Anisocytosis Present; Ovalocytes 1+
[2020-01-25] MEDS: PROCHLORPERAZINE MALEATE 10 MG TAB PO PRN (16:50)
--- NOTE | 2020-01-25 18:22 | Hospitalist Progress Note ---
Date of Service January 25, 2020 Assessment & Plan (1) Intractable nausea and vomiting: Right upper extremity DVT : USG : Occlusive deep venous thrombosis is present in the right internal jugular/around the central venous infusion port catheter, the right axillary, and one of the right brachial veins. Patient started with IV heparin, will change to therapeutic dose of subcu Lovenox, better anticoagulation given underlying metastatic cancer , history of CVA on 01/05/2020, but neurology recommendation was to continue with Plavix for 21 days then continue on aspirin 81 mg daily Patient started on therapeutic Lovenox, and continued with aspirin 81 mg daily ,/plavix D/madiha Monitor H&H, Patient's over all prognosis remains poor Nausea /vomiting : symptoms has resolved Xray KUB : no evidence of obstruction diet advanced solid -tolrating well GI consult appreciated Added Carafate 4 times daily for possible radiation esophagitis hx of Lung Cancer on chemo- and radiation- therapy Follows with hematology oncology for outpatient Dr Veronica Hebert -will update him regardingRt Upper ext thombus involving a-port (2) Acute dehydration: Acute Kidney disease on Chronic Kidney Disease stage 3 -from poor appetite and fluid losses from dehydration MARIA R resolved with hydration will cont IV fluid as pt's appetite is still poor (3) Hypokalemia: resolved (4) Hypomagnesemia: replaced follow labs (5) Small cell lung cancer in adult: with mets to bone getting palliative raditation tx (6) Pancytopenia: (7) Neutropenia: due to metastatic ca on chemo and rad tx (8) Thrombocytopenia: Admission and Anticipated Discharge Date Admission Date: January 11, 2020 Subjective had nausea /vomiting at dinner time no symptoms now no complain of SOB or chest pain Physical Exam Physical Exam: General- oriented x 3, not in distress, speaks in sentences with no effort or accessory muscle use Somewhat weak Eyes- anicteric Neck- no JVD Lungs- clear breath sounds bilaterally, no rales/wheezes Heart- normal rate, regular rhythm; no murmurs Abdomen- normal bowel sounds, nondistended, soft, nontender Extremities-left arm positive edema, swelling no tenderness Neuro- alert, oriented x 3; no gross focal neurologic deficits Skin- warm & dry Results & Data Results & Data ([facility]) Vital Signs (Past 12 Hours) Vital Signs Temp Pulse Pulse Resp BP Pulse Ox 01/25/20 15:19 36.7 C 101 H 102 H 20 113/71 98 01/25/20 11:33 36.5 C 100 H 18 115/76 96 01/25/20 07:35 96 H 01/25/20 07:20 36.8 C 99 H 17 112/78 94 (1) Neutropenia Neutropenia type: secondary to cancer chemotherapy Qualified Code(s): D70.1 - Agranulocytosis secondary to cancer chemotherapy; T45.1X5A - Adverse effect of antineoplastic and immunosuppressive drugs, initial encounter
[2020-01-25] MEDS: ATORVASTATIN 40 MG TAB PO SCH (21:14)
[2020-01-25] MEDS: ARIPiprazole 10 MG TAB PO SCH (21:14)
[2020-01-26] MEDS ORDERED: HYDROmorphone INJ 0.5 MG/0.5 ML SYR ONE (01:31)
[2020-01-26] MEDS: HYDROmorphone INJ 0.5 MG/0.5 ML SYR IV PRN ×4 (06:26→19:25)
[2020-01-26] MEDS: PROCHLORPERAZINE MALEATE 10 MG TAB PO SCH ×3 (07:18→16:20)
[2020-01-26] MEDS: MAGNESIUM CHLORIDE 64MG DELAYED REL TAB PO SCH ×2 (08:24→20:44)
[2020-01-26] MEDS: ASPIRIN 81 MG ECTAB PO SCH (08:24)
[2020-01-26] MEDS: DOCUSATE SODIUM/SENNA 50/8.6MG TAB PO SCH (08:25)
[2020-01-26] MEDS: MULTIVITAMIN TAB PO SCH (08:25)
[2020-01-26] MEDS: PANTOprazole 40 MG TAB PO SCH ×2 (08:25→20:45)
[2020-01-26] MEDS: UMECLIDINIUM/VILANTEROL 62.5/25MCG 7 PUFFS/INHALER INH SCH (08:26)
[2020-01-26] MEDS: POTASSIUM CHLORIDE 20 MEQ/15 ML UDC PO SCH (08:26)
[2020-01-26] MEDS: POLYETHYLENE (MIRALAX) 17 GM PACK PO SCH ×2 (08:26→20:41)
[2020-01-26] MEDS: DULoxetine HCL 60 MG CAP PO SCH (08:27)
[2020-01-26] MEDS: DOCUSATE SODIUM 100 MG CAP PO SCH ×2 (08:27→20:42)
[2020-01-26] MEDS: SUCRALFATE 1 GM/10 ML UDC PO SCH ×4 (08:27→20:41)
[2020-01-26] MEDS: NYSTATIN SUSP 500,000 U/5 ML UDC PO SCH ×4 (08:27→20:44)
[2020-01-26] MEDS: NICOTINE 14 MG/24 HR PATCH TD SCH (11:10)
[2020-01-26] MEDS: ENOXAPARIN 100 MG/1ML SYR SC SCH (12:57)
[2020-01-26 15:59] LABS: Hematocrit (blood only) 22.3 % (37-47); Hemoglobin 7.4 g/dL (12.0-16.0)
[2020-01-26 16:11] LABS: Potassium 4.2 mmol/L (3.5-5.1)
[2020-01-26 16:12] LABS: Magnesium 1.4 mg/dl (1.8-2.4)
--- NOTE | 2020-01-26 16:51 | Hospitalist Progress Note ---
Date of Service January 26, 2020 Assessment & Plan (1) Intractable nausea and vomiting: Right upper extremity DVT : USG : Occlusive deep venous thrombosis is present in the right internal jugular/around the central venous infusion port catheter, the right axillary, and one of the right brachial veins. on therapeutic dose of subcu Lovenox, better anticoagulation given underlying metastatic cancer No bleeding complications so far , history of CVA on 01/05/2020/completed Plavix for 21 days Patient started on therapeutic Lovenox, and continued with aspirin 81 mg daily,/plavix D/madiha Monitor H&H, Nausea /vomiting : symptoms has resolved Xray KUB : no evidence of obstruction diet advanced solid -tolerating well Compazine ordered scheduled premeal GI consult appreciated Added Carafate 4 times daily for possible radiation esophagitis hx of Lung Cancer on chemo- and radiation- therapy Follows with hematology oncology for outpatient Dr Veronica Hebert -updated him regarding right upper extremity thrombus involving a port His overall prognosis remains very poor, metastatic malignancy with hypercoagulable status secondary to cancer. (2) Acute dehydration: Resolved Acute Kidney disease on Chronic Kidney Disease stage 3 -from poor appetite and fluid losses from dehydration MARIA R resolved with hydration will cont IV fluid as pt's appetite is still poor (3) Hypokalemia: resolved (4) Hypomagnesemia: replaced follow labs (5) 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 getting palliative raditation tx Adjust pain medication Patient is counseled to take bowel regimen for on narcotic pain meds (6) Pancytopenia: (7) Neutropenia: due to metastatic ca on chemo and rad tx (8) Thrombocytopenia: Ordered for PT OT evaluation d/c home when pt is clinically improved Admission and Anticipated Discharge Date Admission Date: January 11, 2020 Subjective No episode of nausea or vomiting today, feeding scheduled Compazine before each meal No fever chills or cough Complains of pain on the right chest wall port site-symptoms well controlled with as needed Dilaudid Review of Systems Review of Systems: All systems reviewed & are unremarkable except as noted in HPI & below Physical Exam Physical Exam: General- oriented x 3, not in distress, speaks in sentences with no effort or accessory muscle use Somewhat weak Eyes- anicteric Neck- no JVD Lungs- clear breath sounds bilaterally, no rales/wheezes Heart- normal rate, regular rhythm; no murmurs Abdomen- normal bowel sounds, nondistended, soft, nontender Extremities-right arm positive edema, swelling no tenderness Neuro- alert, oriented x 3; no gross focal neurologic deficits Skin- warm & dry Results & Data Results & Data ([facility]) Vital Signs (Past 12 Hours) Vital Signs Temp Pulse Resp BP Pulse Ox 01/26/20 15:29 36.7 C 101 H 20 91/67 L 94 01/26/20 11:23 36.9 C 95 H 20 92/67 L 96 01/26/20 07:19 36.5 C 104 H 20 89/62 L 92 (1) Neutropenia Neutropenia type: secondary to cancer chemotherapy Qualified Code(s): D70.1 - Agranulocytosis secondary to cancer chemotherapy; T45.1X5A - Adverse effect of antineoplastic and immunosuppressive drugs, initial encounter
--- NOTE | 2020-01-26 16:54 | Communication Note ---
Date of Service: January 26, 2020 Anemia of chronic disease: Due to metastatic malignancy hb 7.4 today Transfuse as needed for hemoglobin less than 7, Monitor H&H closely while on therapeutic anticoagulation Evy Vargas MD
[2020-01-26] MEDS: MAGNESIUM SULFATE / D5W 1 GM/100 ML BAG IV SCH ×3 (17:17→21:17)
[2020-01-26] MEDS: oxyCODONE/ACETAMINOPHEN 5mg/325mg TAB PO PRN (17:24)
[2020-01-26] MEDS: NSS + 20MEQ KCL 20 MEQ/1,000 ML BAG IV SCH (19:15)
[2020-01-26] MEDS: ATORVASTATIN 40 MG TAB PO SCH (20:43)
[2020-01-26] MEDS: ARIPiprazole 10 MG TAB PO SCH (20:43)
[2020-01-27] MEDS: ENOXAPARIN 100 MG/1ML SYR SC SCH ×3 (01:04→23:42)
[2020-01-27] MEDS: HYDROmorphone INJ 0.5 MG/0.5 ML SYR IV PRN ×6 (01:11→22:38)
[2020-01-27] MEDS: HEPARIN 100 UNIT/ML 5ML FLUSH FLUSH PRN (04:18)
[2020-01-27 06:27] LABS: Hematocrit (blood only) 22.4 % (37-47); Hemoglobin 7.2 g/dL (12.0-16.0)
[2020-01-27 06:55] LABS: Potassium 4.3 mmol/L (3.5-5.1)
[2020-01-27 06:56] LABS: Magnesium 1.9 mg/dl (1.8-2.4)
[2020-01-27] MEDS: PROCHLORPERAZINE MALEATE 10 MG TAB PO SCH ×3 (07:42→16:41)
[2020-01-27] MEDS: NICOTINE 14 MG/24 HR PATCH TD SCH (07:45)
[2020-01-27] MEDS: MAGNESIUM CHLORIDE 64MG DELAYED REL TAB PO SCH ×2 (08:37→20:44)
[2020-01-27] MEDS: ASPIRIN 81 MG ECTAB PO SCH (08:37)
[2020-01-27] MEDS: PANTOprazole 40 MG TAB PO SCH ×2 (08:37→20:44)
[2020-01-27] MEDS: DOCUSATE SODIUM/SENNA 50/8.6MG TAB PO SCH (08:37)
[2020-01-27] MEDS: DULoxetine HCL 60 MG CAP PO SCH (08:37)
[2020-01-27] MEDS: MULTIVITAMIN TAB PO SCH (08:37)
[2020-01-27] MEDS: DOCUSATE SODIUM 100 MG CAP PO SCH ×2 (08:37→20:43)
[2020-01-27] MEDS: UMECLIDINIUM/VILANTEROL 62.5/25MCG 7 PUFFS/INHALER INH SCH (08:39)
[2020-01-27] MEDS: SUCRALFATE 1 GM/10 ML UDC PO SCH ×4 (10:33→20:44)
[2020-01-27] MEDS: POTASSIUM CHLORIDE 20 MEQ/15 ML UDC PO SCH (10:34)
[2020-01-27] MEDS: POLYETHYLENE (MIRALAX) 17 GM PACK PO SCH ×2 (10:36→20:43)
[2020-01-27] MEDS: NSS + 20MEQ KCL 20 MEQ/1,000 ML BAG IV SCH (13:55)
[2020-01-27] MEDS ORDERED: SODIUM CHLORIDE 0.9% 1000ML 250 ML IV ONE (16:17)
--- NOTE | 2020-01-27 16:17 | Hospitalist Progress Note ---
Date of Service January 27, 2020 Assessment & Plan (1) Intractable nausea and vomiting: Right upper extremity DVT : USG : Occlusive deep venous thrombosis is present in the right internal jugular/around the central venous infusion port catheter, the right axillary, and one of the right brachial veins. on therapeutic dose of subcu Lovenox, better anticoagulation given underlying metastatic cancer No bleeding complications so far , history of CVA on 01/05/2020/completed Plavix for 21 days Patient started on therapeutic Lovenox, hemoglobin remains in low 8-7 will need PRBC tx if hb < 7 aspirin 81 mg daily,/plavix D/madiha Monitor H&H, Lovenox script sent to pts pharmacy hx of Lung Cancer on chemo- and radiation- therapy Follows with hematology oncology for outpatient Dr Veronica Hebert -updated him regarding right upper extremity thrombus involving a port His overall prognosis remains very poor, metastatic malignancy with hypercoagulable status secondary to cancer. Nausea /vomiting : symptoms has resolved Xray KUB : no evidence of obstruction diet advanced solid -tolerating well Compazine ordered scheduled premeal-script sent already GI consult appreciated Added Carafate 4 times daily for possible radiation esophagitis HYPOTENSION : sbp in low 90's -80's baseline SBP in 100's No evidence of infection or sepsis possibly due to overall deconditioning and dehydration pt remains asymptomatic ordered for 250 ml NSS bolus monitor (2) Acute dehydration: Resolved Acute Kidney disease on Chronic Kidney Disease stage 3 -from poor appetite and fluid losses from dehydration MARIA R resolved with hydration will cont IV fluid as pt's appetite is still poor (3) Hypokalemia: resolved (4) Hypomagnesemia: replaced follow labs (5) 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 getting palliative raditation tx Adjust pain medication Patient is counseled to take bowel regimen for on narcotic pain meds (6) Pancytopenia: (7) Neutropenia: due to metastatic ca on chemo and rad tx (8) Thrombocytopenia: Ordered for PT OT evaluation d/c home possible in am if pain is better controlled Admission and Anticipated Discharge Date Admission Date: January 11, 2020 Subjective No episode of nausea or vomiting today, No fever chills or cough Physical Exam Physical Exam: General- oriented x 3, not in distress, speaks in sentences with no effort or accessory muscle use Somewhat weak Eyes- anicteric Neck- no JVD Lungs- clear breath sounds bilaterally, no rales/wheezes Heart- normal rate, regular rhythm; no murmurs Abdomen- normal bowel sounds, nondistended, soft, nontender Extremities-right arm positive edema, swelling no tenderness Neuro- alert, oriented x 3; no gross focal neurologic deficits Skin- warm & dry Results & Data Results & Data ([facility]) Vital Signs (Past 12 Hours) Vital Signs Temp Pulse Resp BP Pulse Ox 01/27/20 15:15 36.5 C 108 H 18 84/57 L 96 01/27/20 07:39 36.6 C 101 H 19 87/66 L 95 01/27/20 04:41 36.7 C 93 H 15 138/78 98 (1) Neutropenia Neutropenia type: secondary to cancer chemotherapy Qualified Code(s): D70.1 - Agranulocytosis secondary to cancer chemotherapy; T45.1X5A - Adverse effect of antineoplastic and immunosuppressive drugs, initial encounter
--- NOTE | 2020-01-27 16:29 | Communication Note ---
Date of Service: January 27, 2020 pt need to be on manager terminal anticoagulation with SC Lovenox due to DVT associated with Malignancy Lovenox 90 mg SC BID -scrip sent to pt's Pharm[facility] [place] -will need Pre Auth pre auth paper works will be faxed to pharmacy in AM Evy Vargas MD
[2020-01-27] MEDS: ARIPiprazole 10 MG TAB PO SCH (20:44)
[2020-01-27] MEDS: ATORVASTATIN 40 MG TAB PO SCH (20:44)
[2020-01-28] MEDS: HYDROmorphone INJ 0.5 MG/0.5 ML SYR IV PRN ×4 (01:25→18:07)
[2020-01-28 06:36] LABS: Hemoglobin 7.8 g/dL (12.0-16.0); Mean Corpuscular Hemoglobin 29.1 pg (25-34); Mean Corpuscular Hgb Conc 31.2 g/dL (32-36); Mean Corpuscular Volume 93.3 fL (80-100); Nucleated RBC # (auto) 0.02 K/uL (0-0); Nucleated RBC % (auto) 0.7 %; Platelet Count 239 K/uL (130-400); RDW Coefficient of Variation 23.1 % (11.5-14.5); RDW Standard Deviation 76.4 fL (36.4-46.3); Red Blood Count 2.68 M/uL (4.2-5.4); White Blood Count 3.26 K/uL (4.8-10.8)
[2020-01-28 07:03] LABS: BUN Creatinine Ratio 2.5 (10-20); Calcium 8.3 mg/dl (8.5-10.1); Creatinine Clr Calc Pharmacy 100.9 ml/min; Est GFR (African American) 108.2; Est GFR (Non-African American) 93.4; Magnesium 1.6 mg/dl (1.8-2.4); Potassium 4.3 mmol/L (3.5-5.1)
[2020-01-28] MEDS: PROCHLORPERAZINE MALEATE 10 MG TAB PO SCH ×3 (07:31→16:27)
[2020-01-28] MEDS: NICOTINE 14 MG/24 HR PATCH TD SCH (07:32)
[2020-01-28] MEDS: PANTOprazole 40 MG TAB PO SCH ×2 (08:53→20:38)
[2020-01-28] MEDS: MAGNESIUM CHLORIDE 64MG DELAYED REL TAB PO SCH ×2 (08:53→20:39)
[2020-01-28] MEDS: SUCRALFATE 1 GM/10 ML UDC PO SCH ×4 (08:53→20:39)
[2020-01-28] MEDS: ASPIRIN 81 MG ECTAB PO SCH (08:56)
[2020-01-28] MEDS: MULTIVITAMIN TAB PO SCH (08:56)
[2020-01-28] MEDS: DULoxetine HCL 60 MG CAP PO SCH (08:56)
[2020-01-28] MEDS: UMECLIDINIUM/VILANTEROL 62.5/25MCG 7 PUFFS/INHALER INH SCH (08:56)
[2020-01-28] MEDS: POTASSIUM CHLORIDE 20 MEQ/15 ML UDC PO SCH (08:57)
[2020-01-28] MEDS: DOCUSATE SODIUM/SENNA 50/8.6MG TAB PO SCH (08:58)
[2020-01-28] MEDS: POLYETHYLENE (MIRALAX) 17 GM PACK PO SCH ×2 (08:58→20:38)
[2020-01-28] MEDS: DOCUSATE SODIUM 100 MG CAP PO SCH ×2 (08:58→20:37)
--- NOTE | 2020-01-28 09:17 | Hospitalist Progress Note ---
Date of Service January 28, 2020 Assessment & Plan (1) Intractable nausea and vomiting: Right upper extremity DVT : USG : Occlusive deep venous thrombosis is present in the right internal jugular/around the central venous infusion port catheter, the right axillary, and one of the right brachial veins. on therapeutic dose of subcu Lovenox, better anticoagulation given underlying metastatic cancer No bleeding complications so far , history of CVA on 01/05/2020/completed Plavix for 21 days Patient started on therapeutic Lovenox, hemoglobin remains in low 8-7 will need PRBC tx if hb < 7 aspirin 81 mg daily,/plavix D/madiha Monitor H&H, Lovenox script sent to pts pharmacy , patient needs prior authorization for Lovenox hx of Lung Cancer on chemo- and radiation- therapy Follows with hematology oncology for outpatient Dr Veronica Hebert -updated him regarding right upper extremity thrombus involving a port Her overall prognosis remains very poor, metastatic malignancy with hypercoagulable status secondary to cancer. Nausea /vomiting : symptoms has resolved Xray KUB : no evidence of obstruction diet advanced solid -tolerating well Compazine ordered scheduled premeal-script sent already GI consult appreciated PPI twice daily for 1 months Added Carafate 4 times daily recommend for 1 months, for possible radiation esophagitis HYPOTENSION : sbp in low 90's -80's baseline SBP in 100's No evidence of infection or sepsis possibly due to overall deconditioning and dehydration, also likely secondary to pain medications pt remains asymptomatic ordered for 250 ml NSS bolus monitor (2) Acute dehydration: Resolved Acute Kidney disease on Chronic Kidney Disease stage 3 -from poor appetite and fluid losses from dehydration MARIA R resolved with hydration will cont IV fluid as pt's appetite is still poor (3) Hypokalemia: resolved (4) Hypomagnesemia: replaced follow labs (5) 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 Denies any fevers, chills, shortness of breath. She continues to have some pain below her port. Review of Systems Review of Systems: All systems reviewed & are unremarkable except as noted in HPI & below Constitutional: no fever and no chills Respiratory: no cough and no dyspnea Cardiovascular: + chest pain (right chest below port) Gastrointestinal: no abdominal pain, no nausea and no vomiting Physical Exam Physical Exam: General- elderly female, lying in bed, oriented x 3, not in distress, speaks in sentences with no effort or accessory muscle use, appears fatigued Eyes- anicteric, EOMI Neck- no JVD Lungs- clear breath sounds bilaterally, no rales/wheezes Heart- normal rate, regular rhythm; no murmurs Chest - port at right upper chest, some tenderness to palpation below port Abdomen- normal bowel sounds, nondistended, soft, nontender Extremities-right arm positive edema, swelling no tenderness Neuro- alert, oriented x 3; no gross focal neurologic deficits Skin- warm & dry Results & Data Results & Data ([facility]) Vital Signs (Past 12 Hours) Vital Signs Temp Pulse Pulse Resp BP BP BP 01/28/20 08:58 37.0 C 101 H 16 88/62 L 01/28/20 00:50 36.7 C 92 H 16 132/76 01/27/20 23:47 36.6 C 93 H 20 102/70 01/27/20 23:23 36.4 C L 96 H 18 108/75 Pulse Ox 01/28/20 08:58 99 01/28/20 00:50 92 01/27/20 23:47 96 01/27/20 23:23 91 Laboratory Results 01/28/20 01/28/20 Range/Units 05:21 05:21 WBC 3.26 L (4.8-10.8) K/uL RBC 2.68 L (4.2-5.4) M/uL Hgb 7.8 L (12.0-16.0) g/dL Hct 25.0 L (37-47) % MCV 93.3 (80-100) fL MCH 29.1 (25-34) pg MCHC 31.2 L (32-36) g/dL RDW Std Deviation 76.4 H (36.4-46.3) fL RDW Coeff of Anjelica 23.1 H (11.5-14.5) % Plt Count 239 (130-400) K/uL MPV 10.0 (7.4-10.4) fL Absolute Nucleated RBC 0.02 H (0-0) K/uL Nucleated RBC % (auto) 0.7 % Sodium 142 (136-145) mmol/L Potassium 4.3 (3.5-5.1) mmol/L Chloride 110 H (98-107) mmol/L Carbon Dioxide 27 (21-32) mmol/L Anion Gap 5.0 (3-11) BUN 2 L (7-18) mg/dl Creatinine 0.66 (0.6-1.2) mg/dl Est Cr Clr Drug Dosing 100.9 ml/min Est GFR ( Amer) 108.2 Est GFR (Non-Af Amer) 93.4 BUN/Creatinine Ratio 2.5 L (10-20) Glucose 84 (70-99) mg/dl Calcium 8.3 L (8.5-10.1) mg/dl Magnesium 1.6 L (1.8-2.4) mg/dl Medications Administered Current Inpatient Medications Hydrocodone Bitart/Acetaminophen (Hydrocodone/Acetamophen 5/325mg Tab) 1 tab PO Q4H PRN PRN Reason: Pain Stop: 01/30/20 09:24 Last Admin: 01/22/20 10:01 Dose: 1 tab Documented by: Albuterol (Albut/Ipratrop 3mg/0.5mg Neb 3 Ml Vial) 3 ml NEB Q6R PRN PRN Reason: Shortness Of Breath Or Wheezing Stop: 02/10/20 18:52 Aripiprazole (Aripiprazole 10 Mg Tab) 10 mg PO [facility] Stop: 02/22/20 20:59 Last Admin: 01/27/20 20:44 Dose: 10 mg Documented by: Aspirin (Aspirin 81 Mg Ectab) 81 mg PO [facility] Stop: 02/25/20 08:59 Last Admin: 01/28/20 08:56 Dose: 81 mg Documented by: Atorvastatin Calcium (Atorvastatin 40 Mg Tab) 40 mg PO [facility] Stop: 02/22/20 20:59 Last Admin: 01/27/20 20:44 Dose: 40 mg Documented by: Al Hydrox/Mg Hydrox/Simethicone 50 ml/Diphenhydramine HCl 125 mg/Lidocaine HCl 40 ml/Sucralfate 10,000 mg/ [employer] 1 ea 0 ml PO Q4H PRN PRN Reason: burning sensation of esophagus Stop: 02/18/20 19:18 Docusate Sodium (Docusate Sodium 100 Mg Cap) 100 mg PO BID [facility] Stop: 02/22/20 20:59 Last Admin: 01/28/20 08:58 Dose: Not Given Documented by: Duloxetine HCl (Duloxetine Hcl 60 Mg Cap) 60 mg PO DAILY [facility] Stop: 02/22/20 12:14 Last Admin: 01/28/20 08:56 Dose: 60 mg Documented by: Enoxaparin Sodium (Enoxaparin 100 Mg/1ml Syr) 90 mg SC Q12H LC Stop: 02/24/20 12:14 Last Admin: 01/27/20 23:42 Dose: 90 mg Documented by: Heparin Sodium (Porcine) (Heparin 100 Unit/Ml 5ml Flush) 5 ml FLUSH PRN PRN PRN Reason: Flush Stop: 02/11/20 01:41 Last Admin: 01/27/20 04:18 Dose: 5 ml Documented by: Hydromorphone HCl (Hydromorphone Inj 0.5 Mg/0.5 Ml Syr) 0.5 mg IV Q3H PRN PRN Reason: Pain Stop: 02/09/20 01:13 Last Admin: 01/28/20 08:50 Dose: 0.5 mg Documented by: Hydroxyzine HCl (Hydroxyzine Hcl 25 Mg Tab) 50 - 150 mg PO TID@0900,1200,2100 PRN PRN Reason: Anxiety Stop: 02/22/20 11:38 Promethazine HCl 12.5 mg/ (Sodium Chloride) 50.5 mls @ 201 mls/hr IV Q6H PRN PRN Reason: Nausea And Vomiting Stop: 02/10/20 17:01 Last Infusion: 01/25/20 20:57 Dose: Infused Documented by: Potassium Chloride/Sodium Chloride (Normal Saline W/20 Meq Kcl) 20 meq in 1,000 mls @ 50 mls/hr IV .Q20H [facility] Stop: 02/21/20 18:44 Last Infusion: 01/27/20 22:12 Dose: 50 mls/hr Documented by: Magnesium Chloride (Magnesium Chloride 64mg Delayed Rel Tab) 64 mg PO BID [facility] Stop: 02/17/20 20:59 Last Admin: 01/28/20 08:53 Dose: 64 mg Documented by: Magnesium Oxide (Magnesium Oxide 400 Mg Tab) 400 mg PO QAM [facility] Stop: 02/27/20 09:14 Melatonin (Melatonin 3 Mg Tab) 3 mg PO HSZ PRN PRN Reason: Sleep Stop: 02/22/20 11:49 Miscellaneous (Remove Nicoderm Patch) 1 ea N/A DAILY@0859 [facility] Stop: 02/11/20 08:58 Last Admin: 01/28/20 07:32 Dose: 1 ea Documented by: Multivitamins (Multivitamin Tab) 1 tab PO QAM [facility] Stop: 02/23/20 08:59 Last Admin: 01/28/20 08:56 Dose: 1 tab Documented by: Nicotine (Nicotine 14 Mg/24 Hr Patch) 14 mg TD QAM [facility] Stop: 02/10/20 19:14 Last Admin: 01/28/20 07:32 Dose: 14 mg Documented by: Oxycodone/Acetaminophen (Oxycodone/Acetaminophen 5mg/325mg Tab) 1 tab PO Q6H PRN PRN Reason: Pain Stop: 02/06/20 11:38 Last Admin: 01/26/20 17:24 Dose: 1 tab Documented by: Pantoprazole Sodium (Pantoprazole 40 Mg Tab) 40 mg PO BID [facility] Stop: 02/20/20 20:59 Last Admin: 01/28/20 08:53 Dose: 40 mg Documented by: Polyethylene Glycol (Polyethylene (Miralax) 17 Gm Pack) 17 gm PO BID [facility] Stop: 02/22/20 12:14 Last Admin: 01/28/20 08:58 Dose: Not Given Documented by: Potassium Chloride (Potassium Chloride 20 Meq/15 Ml Udc) 20 meq PO QAM [facility] Stop: 02/22/20 12:14 Last Admin: 01/28/20 08:57 Dose: 20 meq Documented by: Prochlorperazine (Prochlorperazine Maleate 10 Mg Tab) 10 mg PO AC [facility] Stop: 02/25/20 07:29 Last Admin: 01/28/20 07:31 Dose: 10 mg Documented by: Senna/Docusate Sodium (Docusate Sodium/Senna 50/8.6mg Tab) 1 tab PO QAM [facility] Stop: 02/18/20 19:44 Last Admin: 01/28/20 08:58 Dose: Not Given Documented by: Sucralfate (Sucralfate 1 Gm/10 Ml Udc) 1 gm PO QID [facility] Stop: 02/20/20 12:59 Last Admin: 01/28/20 08:53 Dose: 1 gm Documented by: Umeclidinium/Vilanterol (Umeclidinium/Vilanterol 62.5/25mcg 7 Puffs/Inhaler) 1 puffs INH DAILY [facility] Stop: 02/11/20 08:59 Last Admin: 01/28/20 08:56 Dose: 1 puffs Documented by: (1) Neutropenia Neutropenia type: secondary to cancer chemotherapy Qualified Code(s): D70.1 - Agranulocytosis secondary to cancer chemotherapy; T45.1X5A - Adverse effect of antineoplastic and immunosuppressive drugs, initial encounter
[2020-01-28] MEDS: NSS + 20MEQ KCL 20 MEQ/1,000 ML BAG IV SCH (09:46)
[2020-01-28] MEDS: MAGNESIUM OXIDE 400 MG TAB PO SCH (10:28)
[2020-01-28] MEDS: ENOXAPARIN 100 MG/1ML SYR SC SCH ×2 (11:42→23:50)
[2020-01-28] MEDS: oxyCODONE/ACETAMINOPHEN 5mg/325mg TAB PO PRN ×2 (12:48→23:53)
[2020-01-28] MEDS: HYDROCODONE/ACETAMOPHEN 5/325MG TAB PO PRN ×2 (14:46→20:44)
[2020-01-28] MEDS ORDERED: SODIUM CHLORIDE 0.9% 1000ML 250 ML IV ONE (18:20)
[2020-01-28] MEDS: ATORVASTATIN 40 MG TAB PO SCH (20:38)
[2020-01-28] MEDS: ARIPiprazole 10 MG TAB PO SCH (20:39)
[2020-01-29] MEDS: NSS + 20MEQ KCL 20 MEQ/1,000 ML BAG IV SCH (04:55)
[2020-01-29] MEDS: PROMETHAZINE HCL 12.5 MG in SODIUM CHLORIDE 0.9% 50 ML IV PRN (05:29)
[2020-01-29 06:01] LABS: Hematocrit (blood only) 22.9 % (37-47); Hemoglobin 7.2 g/dL (12.0-16.0)
[2020-01-29 06:29] LABS: BUN Creatinine Ratio 2.1 (10-20); Creatinine Clr Calc Pharmacy 114.8 ml/min; Est GFR (African American) 112.9; Est GFR (Non-African American) 97.4; Potassium 4.2 mmol/L (3.5-5.1)
[2020-01-29] MEDS: PROCHLORPERAZINE MALEATE 10 MG TAB PO SCH ×2 (07:50→11:54)
[2020-01-29] MEDS: POLYETHYLENE (MIRALAX) 17 GM PACK PO SCH (08:55)
[2020-01-29] MEDS: PANTOprazole 40 MG TAB PO SCH (08:55)
[2020-01-29] MEDS: MULTIVITAMIN TAB PO SCH (08:55)
[2020-01-29] MEDS: ASPIRIN 81 MG ECTAB PO SCH (08:55)
[2020-01-29] MEDS: MAGNESIUM OXIDE 400 MG TAB PO SCH (08:55)
[2020-01-29] MEDS: SUCRALFATE 1 GM/10 ML UDC PO SCH ×2 (08:55→13:06)
[2020-01-29] MEDS: DULoxetine HCL 60 MG CAP PO SCH (08:55)
[2020-01-29] MEDS: DOCUSATE SODIUM 100 MG CAP PO SCH (08:55)
[2020-01-29] MEDS: MAGNESIUM CHLORIDE 64MG DELAYED REL TAB PO SCH (08:55)
[2020-01-29] MEDS: DOCUSATE SODIUM/SENNA 50/8.6MG TAB PO SCH (08:55)
[2020-01-29] MEDS: POTASSIUM CHLORIDE 20 MEQ/15 ML UDC PO SCH (08:56)
[2020-01-29] MEDS: NICOTINE 14 MG/24 HR PATCH TD SCH (09:00)
[2020-01-29] MEDS: oxyCODONE/ACETAMINOPHEN 5mg/325mg TAB PO PRN (09:00)
[2020-01-29] MEDS: UMECLIDINIUM/VILANTEROL 62.5/25MCG 7 PUFFS/INHALER INH SCH (10:04)
[2020-01-29] MEDS: ENOXAPARIN 100 MG/1ML SYR SC SCH (11:54)
[2020-01-29] MEDS: HYDROCODONE/ACETAMOPHEN 5/325MG TAB PO PRN (13:06)
--- NOTE | 2020-01-29 13:30 | Hospitalist Progress Note ---
Date of Service January 29, 2020 Assessment & Plan (1) Intractable nausea and vomiting: Right upper extremity DVT : USG : Occlusive deep venous thrombosis is present in the right internal jugular/around the central venous infusion port catheter, the right axillary, and one of the right brachial veins. on therapeutic dose of subcu Lovenox, better anticoagulation given underlying metastatic cancer No bleeding complications so far , history of CVA on 01/05/2020/completed Plavix for 21 days Patient started on therapeutic Lovenox, hemoglobin remains in low 8-7 will need PRBC tx if hb < 7 aspirin 81 mg daily,/plavix D/madiha Monitor H&H, Lovenox script sent to pts pharmacy , patient needs prior authorization for Lovenox hx of Lung Cancer on chemo- and radiation- therapy Follows with hematology oncology for outpatient Dr Veronica Hebert -updated him regarding right upper extremity thrombus involving a port Her overall prognosis remains very poor, metastatic malignancy with hypercoagulable status secondary to cancer. Nausea /vomiting : symptoms has resolved Xray KUB : no evidence of obstruction diet advanced solid -tolerating well Compazine ordered scheduled premeal-script sent already GI consult appreciated PPI twice daily for 1 months Added Carafate 4 times daily recommend for 1 months, for possible radiation esophagitis HYPOTENSION : sbp in low 90's -80's baseline SBP in 100's No evidence of infection or sepsis possibly due to overall deconditioning and dehydration, also likely secondary to pain medications pt remains asymptomatic ordered for 250 ml NSS bolus monitor For blood pressure 100s over 70s (2) Acute dehydration: Resolved Acute Kidney disease on Chronic Kidney Disease stage 3 -from poor appetite and fluid losses from dehydration MARIA R resolved with hydration - IV fluid while inpt as pt's appetite is poor (3) Hypokalemia: resolved (4) Hypomagnesemia: replaced follow labs (5) 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 Denies any fevers, c hills, shortness of breath. Says she has been eating a little. No issues with bowel movements or urination. Review of Systems Review of Systems: All systems reviewed & are unremarkable except as noted in HPI & below Constitutional: no fever and no chills Respiratory: no cough and no dyspnea Cardiovascular: no chest pain and no palpitations Gastrointestinal: no abdominal pain, no nausea and no vomiting Physical Exam Physical Exam: General- elderly female, lying in bed, oriented x 3, not in d istress, speaks in sentences with no effort or accessory muscle use, appears fatigued Eyes- anicteric, EOMI Neck- no JVD Lungs- clear breath sounds bilaterally, no rales/wheezes Heart- normal rate, regular rhythm; no murmurs Chest - port at right upper chest, some mild tenderness to palpation below port Abdomen- normal bowel sounds, nondistended, soft, nontender Extremities-right arm positive edema, no tenderness Neuro- alert, oriented x 3; no gross focal neurologic deficits Skin- warm & dry (1) Neutropenia Neutropenia type: secondary to cancer chemotherapy Qualified Code(s): D70.1 - Agranulocytosis secondary to cancer chemotherapy; T45.1X5A - Adverse effect of antineoplastic and immunosuppressive drugs, initial encounter
--- NOTE | 2020-01-29 13:39 | Discharge Summary ---
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 and history of nausea and vomiting with recent [facility] hospital discharge on 01/08/2020 after admission for stroke with inpatient and outpatient therapy of anti-platelets -Patient returns to hospital ED on 01/11/2020 again with intractable nausea and vomiting, associated electrolyte deficiencies of hypomagnesemia and hypokalemia, again neutropenic, but this time also acutely thrombocytopenic with serum platelets of 19K -neutropenia likely related to cancer with history of chemotherapy and radiation treatments -was given IV Ertapenem, ED physician does not find a clear source suggestive of infection but given neutropenia, patient to continue empiric antibiotics for now -patient consented for platelet transfusions by hospitalist Review of symptoms was limited by patient's nausea discomforts but patient denies being in acute pain other than discomforts of chest from retching and vomiting. She denies problems with urination or with bowel movements. she reports her speech deficits from previous stroke admission are all resolved. She denies any motor deficits Primary Care Provider: Rosa Crooks, DO Admission Exam Per Admitting Provider Constitutional: nausea, vomiting, retching ENMT: external ear and nose normal, oropharynx normal Neck: normal visual inspection Respiratory: normal respiratory effort, lungs clear to auscultation Cardiovascular: Rate/Rhythm: + tachycardic Gastrointestinal (Abdomen): normal bowel sounds, soft, nontender, no hepatosplenomegaly Musculoskeletal: Head/Neck/Chest: normocephalic and head atraumatic Neurologic: PERRL, EOMI, accommodation nl, no face palsy, no dysarthria moves all extremities Psychiatric: A+Ox3, euthymic affect Principal Diagnosis Nausea/vomiting /dehydration -resolved Metastatic lung cancer Right upper extremity DVT Long-term anticoagulation with Lovenox Discharge Exam General- elderly female, lying in bed, oriented x 3, not in distress, speaks in sentences with no effort or accessory muscle use, appears fatigued Eyes- anicteric, EOMI Neck- no JVD Lungs- clear breath sounds bilaterally, no rales/wheezes Heart- normal rate, regular rhythm; no murmurs Chest - port at right upper chest, some mild tenderness to palpation below port Abdomen- normal bowel sounds, nondistended, soft, nontender Extremities-right arm positive edema, no tenderness Neuro- alert, oriented x 3; no gross focal neurologic deficits Skin- warm & dry Discharge Data Allergies Allergy/AdvReac Type Severity Reaction Status Date / Time mushroom Allergy Severe anaphylaxis Verified 12/29/19 08:26 Penicillins Allergy Severe anaphylaxis, Verified 12/29/19 08:26 facial & throat swelling acetazolamide Allergy Intermediate rash, hives Verified 01/17/20 07:52 mold Allergy Unknown unknown Verified 12/29/19 08:26 reaction sumatriptan AdvReac Intermediate flushing, Verified 01/17/20 07:52 heart racing Consultations 01/11/20 16:45 ED Decision to Admit Stat 01/11/20 17:12 Consult Case Management - Discharge Planning Routine 01/12/20 10:46 Consult Radiation Oncology Routine 01/14/20 16:25 Consult Gastroenterology Routine Procedures Performed Operation Date: 01/22/20 10:30 <No data on this case meets the specified criteria> Ordered Studies 01/20/20 09:28 US abdomen limited Routine FINDINGS: The pancreas appears normal as visualized. The gallbladder appears sonographically normal. There is no ductal dilatation. The common bile duct measures 5 mm. There is no right-sided hydronephrosis. No hepatic lesions are delineated. IMPRESSION: Normal biliary ultrasound. 01/24/20 13:43 US venous doppler UE RT Stat IMPRESSION: 1. Occlusive deep venous thrombosis is present in the right internal jugular, the right axillary, and one of the right brachial veins. 2. Superficial venous thrombus is present within the cephalic and basilic veins. Hospital Course (1) Intractable nausea and vomiting: Right upper extremity DVT : USG : Occlusive deep venous thrombosis is present in the right internal jugular/around the central venous infusion port catheter, the right axillary, and one of the right brachial veins. on therapeutic dose of subcu Lovenox, better anticoagulation given underlying metastatic cancer No bleeding complications so far history of CVA on 01/05/2020/completed Plavix for 21 days Patient started on therapeutic Lovenox, hemoglobin remains in low 8-7 will need PRBC tx if hb < 7 aspirin 81 mg daily,/plavix D/madiha Monitor H&H, Lovenox script sent to pts pharmacy hx of Lung Cancer on chemo- and radiation- therapy Follows with hematology oncology for outpatient Dr Veronica Hebert -updated him regarding right upper extremity thrombus involving a port Her overall prognosis remains very poor, metastatic malignancy with hypercoagulable status secondary to cancer. Nausea /vomiting : symptoms has resolved Xray KUB : no evidence of obstruction diet advanced solid -tolerating well Compazine ordered scheduled premeal- script sent already GI consult appreciated PPI daily for 1 month Added Carafate 4 times daily recommend for 1 months, for possible radiation esophagitis HYPOTENSION : sbp in low 90's -80's baseline SBP in 100's No evidence of infection or sepsis possibly due to overall deconditioning and dehydration, also likely secondary to pain medications pt remains asymptomatic ordered for 250 ml NSS bolus monitor For blood pressure 100s over 70s (2) Acute dehydration: Resolved Acute Kidney disease on Chronic Kidney Disease stage 3 -from poor appetite and fluid losses from dehydration MARIA R resolved with hydration - IV fluid while inpt as pt's appetite is poor (3) Hypokalemia: resolved (4) Hypomagnesemia: replaced follow labs (5) 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 getting palliative raditation tx Adjust pain medication Patient is counseled to take bowel regimen for on narcotic pain meds (6) Pancytopenia: (7) Neutropenia: due to metastatic ca on chemo and rad tx (8) Thrombocytopenia: Ordered for PT OT evaluation d/c home today Total Time Total Time Spent Total Time Spent (In Minutes): 40 Total Time Includes: Examination of the Patient, Discharge Planning, Medication Reconciliation and Communication With Other Providers Discharge Plan Discharge Items Patient Disposition: Home - Home Health Services Reason For Visit: INTRACTABLE VOMITING,NEUTROPENIC,THROMBOCYTOPENEIC Discharge Diagnosis: Nausea/vomiting /dehydration -resolved Metastatic lung cancer Right upper extremity DVT Long-term anticoagulation with Lovenox Condition on Discharge: Fair Activity: Resume your previous activity Non-emergency contact: Primary Care Provider Call non-emergency contact if: you have any medication questions Follow-up/Referrals: Washington Hebert MD [Physician] - Rosa Crooks DO [Primary Care Provider] - 02/03/20 11:00 am ( Date & Time 02/03/2020 11:00 AM Provider Hany Glaser MD [facility] ) Anibal Hebert MD [Surgeon] - Diet: Regular Ambulatory Orders: Complete Blood Count no Diff (Routine) Timeframe: 1 Week Location: Determined by Patient Ordered By: Evy Vargas Addtl Attending Provider Instructions: Follow-up with cancer specialist, hematology oncology Dr. Anibal Hebert Continue palliative radiation treatment as per scheduled Please drink plenty of fluids, take stool softeners: MiraLAX, Colace, [id number] milk of magnesia to prevent constipation due to narcotic pain meds next Take Compazine before each meal to prevent nausea vomiting Was started on a blood thinner Lovenox subcu twice daily Do not take Plavix and aspirin 81 mg daily, please notify your family physician with any evidence of bleeding, dark stool or tarry colored stool Do not take Naprosyn, Aleve, Advil, ibuprofen, Motrin-can increase your bleeding risk you are significantly anemic -low blood count due to chemo and radiation therapy check blood work /hemoglobin level with next physician visit , will need blood transfusion if hemoglobin level less than 7 your oncologist and family physician will co ordinate for anemia management Pending Studies at Discharge: No Stand-Alone Forms: [employer], Smoking Cessation Medications and DC Order Prescriptions: New nystatin 100,000 unit/mL Suspension 10 ml PO QID 30 Days Qty: 400 RF: 3 sucralfate 100 mg/mL Suspension 10 ml PO QID 30 Days Qty: 1200 RF: 0 polyethylene glycol 3350 [Miralax] 17 gram/dose powder 17 g PO DAILY 30 Days Qty: 510 RF: 0 enoxaparin 100 mg/mL Syringe 90 mg SC Q12H 30 Days Qty: 54 RF: 3 hydromorphone [Dilaudid] 4 mg tablet 4 mg PO Q6H PRN (Reason: pain) Qty: 30 RF: 0 prochlorperazine maleate [Compazine] 10 mg tablet 10 mg PO TID 30 Days Qty: 90 RF: 3 omeprazole 20 mg capsule,delayed release(DR/EC) 20 mg PO BID 30 Days Qty: 60 RF: 3 pantoprazole [Protonix] [address] for susp in packet 40 mg PO DAILY Qty: 30 RF: 0 docusate sodium 100 mg Capsule 100 mg PO BID Qty: 0 RF: 0 sennosides-docusate sodium [Senokot-S] 8.6-50 mg Tablet 1 tab PO QAM Qty: 0 RF: 0 Continued aripiprazole [Abilify] 10 mg tablet 10 mg PO HS RF: 0 albuterol sulfate 90 mcg/actuation HFA aerosol inhaler 2 puff INH Q6H PRN (Reason: Shortness Of Breath Or Wheezing) Qty: 18 RF: 3 Anoro Ellipta 62.5-25 mcg/actuation blister with device 1 puffs INH DAILY Qty: 60 RF: 3 nicotine 14 mg/24 hr patch 24 hour 1 patch TD DAILY Qty: 28 RF: 2 olanzapine [Zyprexa] 10 mg tablet 10 mg PO UD RF: 0 duloxetine 60 mg capsule,delayed release(DR/EC) 60 mg PO DAILY RF: 0 atorvastatin 40 mg Tablet 40 mg PO HS 30 Days Qty: 30 RF: 0 multivitamin Tablet 1 tab PO QAM RF: 0 ondansetron HCl [Zofran] 8 mg tablet 8 mg PO Q8 PRN (Reason: Nausea) RF: 0 hydroxyzine HCl 50 mg tablet 50 mg PO UD PRN (Reason: Anxiety) RF: 0 melatonin 5 mg Tablet 5 mg PO HS PRN (Reason: Sleep) RF: 0 potassium chloride 20 mEq Packet 40 meq PO BID17 15 Days Qty: 30 RF: 0 magnesium oxide 400 mg (241.3 mg magnesium) Tablet 400 mg PO QAM 15 Days Qty: 15 RF: 0 docusate sodium 100 mg Capsule 100 mg PO BID 30 Days Qty: 60 RF: 0 Discontinued ibuprofen [Advil] 200 mg Tablet 400 mg PO Q12H PRN (Reason: Pain) RF: 0 oxycodone-acetaminophen 5-325 mg tablet 1 tab PO Q6 PRN (Reason: Pain) RF: 0 doxycycline hyclate 100 mg Capsule 100 mg PO BID 7 Days Qty: 14 RF: 0 clopidogrel 75 mg Tablet 75 mg PO QAM 16 Days Qty: 16 RF: 0 aspirin 81 mg Tablet,Delayed Release (Dr/Ec) 81 mg PO QAM 30 Days Qty: 30 RF: 0 Discharge Orders: Discharge Order (Routine); Ordered 01/29/20 Ordered By: Pedrito Gaston Admission Data Admit Date/Time: 01/11/20 17:10 Attending Provider: Pedrito Gaston Admit Provider: Jack Stokes Primary Care Provider: Rosa Crooks Other Providers: [facility],Home Healthcare ; Ingris Simpson I. ; Jack Stokes ; Washington Hebert ; Stephanie Yung ; Evy Vargas.
[2020-01-29] MEDS: HEPARIN 100 UNIT/ML 5ML FLUSH FLUSH PRN (14:42)
== END 2020-01-29 15:18 | disposition home health service (06) | DRG 683 ==
LOC: ED 15:26 → 2S 17:10 → SUATTDRO 17:10 → 2S 17:43 → 2N 01-15 17:25 → 2W 01-16 12:02 → 3E 01-27 04:31

== ENCOUNTER 2020-02-03 14:51 | Inpatient (IN) ==
[2020-02-03] MEDS ORDERED: MoRPHine SULFATE 4 MG/ML 1 ML CARP\\VIAL IV STA (15:02)
[2020-02-03] MEDS ORDERED: ONDANSETRON INJ 2 MG/ML 2 ML VIAL IV STA ×2 (15:02→17:20)
[2020-02-03] MEDS ORDERED: SODIUM CHLORIDE 0.9% 500 ML IV SCH ×2 (15:15→22:45)
--- NOTE | 2020-02-03 15:27 | Emergency Department Note ---
Impression & Plan Fall, Weakness, Back pain, Tachycardia, Closed fracture of T11 vertebra ED Provider Note NAME: BREN BELTRAN AGE: 64 SEX: F : 1955 ARRIVES VIA: Ambulance INFORMANT: Patient, ED PROVIDER(S): Kj Maxwell DO CHIEF COMPLAINT: Back pain HPI: Patient is a 64-year-old female presents ER following a mechanical fall. She notes her legs became weak she fell backwards and hit her back on the dresser. She did not hit her head. No head or neck pain. No loss consciousness. She denies any weakness or numbness in the legs which is new. She notes some shortness of breath but this has been present for over a week. She has a history of lung cancer and gets radiation. No fevers. No other exacerbating or remitting factors. Injects Lovenox 90 mg twice a day. Has not missed any doses. ROS: See above HPI for pertinent positives & negatives. A total of 10 systems reviewed and were otherwise negative. PAST MEDICAL HISTORY:See Below PAST SURGICAL HISTORY:See Below FAMILY HISTORY:See Below SOCIAL HISTORY:See Below HOME MEDICATIONS:See Below ALLERGIES:See Below VITALS:See Below PHYSICAL EXAMINATION: GENERAL: alert, well appearing, well nourished, no distress, non-toxic HEAD: normal cephalic, atraumatic EYE EXAM: normal conjunctiva, PERRL and EOM's grossly intact OROPHARYNX: no exudate, no erythema, lips, buccal mucosa, and tongue normal and mucous membranes are moist NECK: supple, no nuchal rigidity, no adenopathy, non-tender CHEST: stable to compression anteriorly and posteriorly LUNGS: clear to auscultation. Normal chest wall mechanics HEART: no murmurs, S1 normal and S2 normal ABDOMEN: abdomen soft, non-tender, normo-active bowel sounds, no masses, no rebound or guarding. PELVIS: stable to compression anteriorly and posteriorly BACK: Back is symmetrical on inspection and there is no deformity, lower midline back pain, no CVA tenderness. UPPER EXTREMITIES: full active and passive range of motion of all joints without tenderness to palpation LOWER EXTREMITIES: full active and passive range of motion of all joints without tenderness to palpation NEURO EXAM: Normal sensorium, cranial nerves II-XII grossly intact, normal sp eech, no gross weakness of arms, no gross weakness of legs. GCS: 15. MEDICAL DECISION MAKING: Patient is a 64-year-old female is post mechanical fall. Complaining of back pain. IV was status post orders obtained. She was given IV fluids. Labs show no significant leukocytosis but a mild anemia. INR was unremarkable. BMP with mild hypokalemia 3.2. LFTs bilirubin and troponin was negative. Lipase was normal. CT of the head, abdomen pelvis and lumbar spine showed compression fracture T11 of only 20%. She is completely neurologically intact. They are attempting to place her at home and she is currently agreeable to rehab. She will need PT OT and eval by Ortho. Patient was updated bedside. Discussed with the hospitalist and she will be admitted for further work-up. Triage Nursing notes reviewed. Prior medical records reviewed Vital Signs: reviewed and remarkable for no significant abnormalities Differential diagnosis: Differential diagnoses include major intracranial, cervical, spinal, thoracic, abdominal, pelvic and neurologic injury. Fracture, contusion, sprain, strain, laceration, abrasions included as well. ER treatment provided: See below Diagnostics interpreted by me: ECG: Sinus tachycardia rate of 112 Normal axis No PVCs Normal QTC Cardiac Monitoring: An order was placed for continuous cardiac monitoring. The monitor shows a rate of 108 with sinus rhythm. Laboratory studies: As stated above and show below. Imaging studies: CT of the head, abdomen and lumbar spine show endplate fracture at T11 20% Consultation(s): Discussed with Dr. Kemal Cardoza for further evaluation ED COURSE: Procedures: none Critical Care: None Past Med/Surg History Medical History (Updated 02/03/20 @ 17:45 by Kj Maxwell DO) Acute kidney injury Acute shoulder pain Now a constant ache - no prescription meds needed Anxiety Chronic venous insufficiency follows with vascular (Dr. Carlson) CKD (chronic kidney disease), stage III COPD with emphysema Dentalgia Depression Hypertension Kidney stones LAD (lymphadenopathy), mediastinal Major depressive disorder, recurrent episode with anxious distress Daughter from OD in 2016 Migraine Nausea & vomiting Neutropenia with fever Nicotine dependence Pancytopenia Polysubstance overdose Hx of 2017 Pulmonary nodule "7 mm RUL nodule, stable 09/25/15 - 09/16/16; repeat 6 mos" Surgical History History of bronchoscopy 10/30/2019 - with EBUS History of cataract surgery 2004 - bilateral History of section 1991 History of colonoscopy unsuccessful (poor bowel prep) History of cystoscopy 2007 - with stent History of dental surgery 02/2019 - Full upper teeth extracted S/P arthroscopy of left knee S/P arthroscopy of right knee Family History Grandmother (Maternal) , Passed in 80's of metastatic cancer (unknown primary) No problems noted. Mother , Passed age 93 of natural causes No problems noted. Father , Passed age 97 of natural causes No problems noted. Brother No problems noted. Daughter , Passed age 24 from Over Dose No problems noted. 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 [employer] Feels Safe at Home: Yes Childhood Exposure to Second-Hand Smoke: No caffeine: Yes (2 cups of coffee/day ) during the past year weight has: remained stable Dental Care, Regularly: Yes Assistive Devices: None Allergies Allergies Allergy/AdvReac Type Severity Reaction Status Date / Time mushroom Allergy Severe anaphylaxis Verified 02/03/20 16:48 Penicillins Allergy Severe anaphylaxis, Verified 02/03/20 16:48 facial & throat swelling acetazolamide Allergy Intermediate rash, hives Verified 02/03/20 16:48 mold Allergy Unknown unknown Verified 02/03/20 16:48 reaction sumatriptan AdvReac Intermediate flushing, Verified 02/03/20 16:48 heart racing Home Meds Home Medications Medication Instructions Recorded Confirmed aripiprazole 10 mg tablet 10 mg PO HS 09/18/19 02/03/20 multivitamin 1 tab PO QAM 11/08/19 02/03/20 hydroxyzine HCl 50 mg PO UD PRN 12/23/19 02/03/20 melatonin 5 mg PO HS PRN 12/23/19 02/03/20 ondansetron HCl [Zofran] 8 mg PO Q8 PRN 12/23/19 02/03/20 duloxetine 60 mg PO DAILY 01/03/20 02/03/20 olanzapine [Zyprexa] 10 mg PO UD 01/03/20 02/03/20 Previous Rx's Medication Instructions Recorded albuterol sulfate 90 mcg/actuation 2 puff INH Q6H PRN #18 gm 10/23/19 aerosol inhaler umeclidinium 62.5 mcg-vilanterol 1 puffs INH DAILY #60 ea 10/23/19 25 mcg/actuation powdr for inhalation nicotine 14 mg/24 hr daily 1 patch TD DAILY #28 ea 11/12/19 transdermal patch atorvastatin 40 mg PO HS 30 Days #30 tab 01/08/20 nystatin 10 ml PO QID 30 Days #400 ml 01/23/20 polyethylene glycol 3350 [Miralax] 17 g PO DAILY 30 Days #510 g 01/23/20 sucralfate 10 ml PO QID 30 Days #1200 ml 01/23/20 docusate sodium 100 mg PO BID #0 cap 01/26/20 enoxaparin 90 mg SC Q12H 30 Days #54 ml 01/26/20 hydromorphone [Dilaudid] 4 mg PO Q6H PRN #30 tab 01/26/20 prochlorperazine maleate 10 mg PO TID 30 Days #90 tab 01/26/20 [Compazine] sennosides-docusate sodium 1 tab PO QAM #0 tab 01/26/20 [Senokot-S] omeprazole 20 mg PO BID 30 Days #60 cap 01/27/20 pantoprazole [Protonix] 40 mg PO DAILY #30 ea 01/29/20 Results & Data (ED) Vital Signs Vital Signs - 24 hr 02/03/20 15:04 02/03/20 15:07 02/03/20 15:16 Temperature 37.3 C Temperature Source Oral Pulse Rate 112 H 116 H 112 H Pulse Rate from SpO2 Sensor 117 H Respiratory Rate 22 12 22 Respiratory Effort / Characteristics Non-Labored Spontaneous Respiratory Depth Normal Respiratory Pattern Regular Blood Pressure 112/82 112/82 Blood Pressure Mean 92 92 Pulse Oximetry 97 97 97 Oxygen Delivery Method Room Air Room Air Sepsis Recent Fever Within 48 Hours No Sepsis New/Unexplained Change in Mental Status No Sepsis Action Taken by Nursing No Action Required 02/03/20 15:30 02/03/20 16:00 02/03/20 16:01 Temperature Temperature Source Pulse Rate 106 H 103 H 103 H Pulse Rate from SpO2 Sensor 106 H 103 H 101 H Respiratory Rate 20 15 16 Respiratory Effort / Characteristics Respiratory Depth Respiratory Pattern Blood Pressure 114/85 102/66 Blood Pressure Mean 99 72 Pulse Oximetry 95 94 96 Oxygen Delivery Method Sepsis Recent Fever Within 48 Hours Sepsis New/Unexplained Change in Mental Status Sepsis Action Taken by Nursing 02/03/20 16:02 02/03/20 16:30 02/03/20 17:14 Temperature Temperature Source Pulse Rate 103 H 104 H 102 H Pulse Rate from SpO2 Sensor 103 H 104 H 102 H Respiratory Rate 19 15 18 Respiratory Effort / Characteristics Respiratory Depth Respiratory Pattern Blood Pressure 91/66 L 97/69 L Blood Pressure Mean 79 81 Pulse Oximetry 93 94 96 Oxygen Delivery Method Sepsis Recent Fever Within 48 Hours Sepsis New/Unexplained Change in Mental Status Sepsis Action Taken by Nursing Laboratory Data Result diagrams: 02/03/20 15:34 02/03/20 15:34 Lab Results 02/03/20 02/03/20 02/03/20 Range/Units 15:34 15:34 15:34 WBC 5.21 (4.8-10.8) K/uL RBC 2.88 L (4.2-5.4) M/uL Hgb 8.8 L (12.0-16.0) g/dL Hct 26.9 L (37-47) % MCV 93.4 (80-100) fL MCH 30.6 (25-34) pg MCHC 32.7 (32-36) g/dL RDW Std Deviation 76.8 H (36.4-46.3) fL RDW Coeff of Anjelica 24.1 H (11.5-14.5) % Plt Count 143 (130-400) K/uL MPV 9.9 (7.4-10.4) fL Immature Gran % (Auto) 0.4 % Neut % (Auto) 71.6 % Lymph % (Auto) 20.5 % Cuming % (Auto) 6.7 % Eos % (Auto) 0.6 % Baso % (Auto) 0.2 % Neut # (Auto) 3.73 (1.4-6.5) K/uL Lymph # (Auto) 1.07 L (1.2-3.4) K/uL Cuming # (Auto) 0.35 (0.11-0.59) K/uL Eos # (Auto) 0.03 (0-0.5) K/uL Baso # (Auto) 0.01 (0-0.2) K/uL Immature Gran # (Auto) 0.02 (0.00-0.02) K/uL Absolute Nucleated RBC 0.03 H (0-0) K/uL Nucleated RBC % (auto) 0.5 % Polychromasia 1+ Anisocytosis Present Tear Drop Cells 1+ Ovalocytes 1+ PT 11.9 (9.0-12.0) Seconds INR 1.1 (0.9-1.1) APTT 26.2 (21.0-31.0) Seconds PTT Ratio 0.9 Sodium 138 (136-145) mmol/L Potassium 3.2 L (3.5-5.1) mmol/L Chloride 102 (98-107) mmol/L Carbon Dioxide 28 (21-32) mmol/L Anion Gap 8.0 (3-11) BUN 7 (7-18) mg/dl Creatinine 0.74 (0.6-1.2) mg/dl Est Cr Clr Drug Dosing 88.6 ml/min Est GFR ( Amer) 99.2 Est GFR (Non-Af Amer) 85.6 BUN/Creatinine Ratio 9.7 L (10-20) Glucose 101 H (70-99) mg/dl Calcium 8.3 L (8.5-10.1) mg/dl Total Bilirubin 0.4 (0.2-1) mg/dl AST 22 (15-37) U/L ALT 22 (12-78) U/L Alkaline Phosphatase 126 H (45-117) U/L Troponin I < 0.015 (0-0.045) ng/ml Total Protein 5.7 L (6.4-8.2) gm/dl Albumin 2.3 L (3.4-5.0) gm/dl Globulin 3.4 (2.5-4.0) gm/dl Albumin/Globulin Ratio 0.7 L (0.9-2) Lipase 28 L (73-393) U/L Administered Medications Sodium Chloride (Nss 1000ml) 500 mls @ 999 mls/hr IV .Q31M ONE Stop: 02/03/20 17:50 Last Admin: 02/03/20 17:28 Dose: 999 mls/hr Documented by: [id number] Discontinued Medications Sodium Chloride (Nss) 500 mls @ 999 mls/hr IV .Q31M LC Stop: 02/03/20 15:45 Last Infusion: 02/03/20 16:21 Dose: 0 mls/hr Documented by: [id number] Admin: 02/03/20 15:44 Dose: 999 mls/hr Documented by: [id number] Ioversol (Ioversol 100ml) 92 ml IV ONCE ONE Stop: 02/03/20 17:03 Last Admin: 02/03/20 17:02 Dose: 92 ml Documented by: [id number] Morphine Sulfate (Morphine Sulfate 4 Mg/Ml 1 Ml Carp\\Vial) 4 mg IV NOW STA Stop: 02/03/20 15:03 Last Admin: 02/03/20 15:44 Dose: 4 mg Documented by: [id number] Ondansetron HCl (Ondansetron Inj 2 Mg/Ml 2 Ml Vial) 4 mg IV NOW STA Stop: 02/03/20 15:03 Last Admin: 02/03/20 15:44 Dose: 4 mg Documented by: [id number] Ondansetron HCl (Ondansetron Inj 2 Mg/Ml 2 Ml Vial) 4 mg IV NOW STA Stop: 02/03/20 17:21 Last Admin: 02/03/20 17:28 Dose: 4 mg Documented by: [id number] Discharge Plan Visit Data Chief Complaint: Fall ED Provider: jK Maxwell Discharge Problem: Fall, Weakness, Back pain, Tachycardia, Closed fracture of T11 vertebra Forms Stand Alone Forms: [facility] Prescriptions Prescriptions: No Action aripiprazole [Abilify] 10 mg tablet 10 mg PO HS RF: 0 albuterol sulfate 90 mcg/actuation HFA aerosol inhaler 2 puff INH Q6H PRN (Reason: Shortness Of Breath Or Wheezing) Qty: 18 RF: 3 Anoro Ellipta 62.5-25 mcg/actuation blister with device 1 puffs INH DAILY Qty: 60 RF: 3 nicotine 14 mg/24 hr patch 24 hour 1 patch TD DAILY Qty: 28 RF: 2 olanzapine [Zyprexa] 10 mg tablet 10 mg PO UD RF: 0 duloxetine 60 mg capsule,delayed release(DR/EC) 60 mg PO DAILY RF: 0 atorvastatin 40 mg Tablet 40 mg PO HS 30 Days Qty: 30 RF: 0 nystatin 100,000 unit/mL Suspension 10 ml PO QID 30 Days Qty: 400 RF: 3 sucralfate 100 mg/mL Suspension 10 ml PO QID 30 Days Qty: 1200 RF: 0 polyethylene glycol 3350 [Miralax] 17 gram/dose powder 17 g PO DAILY 30 Days Qty: 510 RF: 0 sennosides-docusate sodium [Senokot-S] 8.6-50 mg Tablet 1 tab PO QAM Qty: 0 RF: 0 docusate sodium 100 mg Capsule 100 mg PO BID Qty: 0 RF: 0 enoxaparin 100 mg/mL Syringe 90 mg SC Q12H 30 Days Qty: 54 RF: 3 hydromorphone [Dilaudid] 4 mg tablet 4 mg PO Q6H PRN (Reason: pain) Qty: 30 RF: 0 prochlorperazine maleate [Compazine] 10 mg tablet 10 mg PO TID 30 Days Qty: 90 RF: 3 omeprazole 20 mg capsule,delayed release(DR/EC) 20 mg PO BID 30 Days Qty: 60 RF: 3 pantoprazole [Protonix] [address] for susp in packet 40 mg PO DAILY Qty: 30 RF: 0 multivitamin Tablet 1 tab PO QAM RF: 0 ondansetron HCl [Zofran] 8 mg tablet 8 mg PO Q8 PRN (Reason: Nausea) RF: 0 hydroxyzine HCl 50 mg tablet 50 mg PO UD PRN (Reason: Anxiety) RF: 0 melatonin 5 mg Tablet 5 mg PO HS PRN (Reason: Sleep) RF: 0 Discharge Problem: Fall Qualifiers: Encounter type: initial encounter Qualified Code(s): W19.XXXA - Unspecified fall, initial encounter Back pain Qualifiers: Back pain location: low back pain Chronicity: acute Back pain laterality: unspecified Sciatica presence: unspecified whether sciatica present Qualified Code(s): M54.5 - Low back pain Closed fracture of T11 vertebra Qualifiers: Encounter type: initial encounter Fracture morphology: unspecified fracture morphology Qualified Code(s): S22.082H - Unspecified fracture of T11-T12 vertebra, initial encounter for closed fracture
[2020-02-03 15:45] LABS: Basophils # (auto) 0.01 K/uL (0-0.2); Basophils % (auto) 0.2 %; Eosinophils # (auto) 0.03 K/uL (0-0.5); Eosinophils % (auto) 0.6 %; Hematocrit (blood only) 26.9 % (37-47); Hemoglobin 8.8 g/dL (12.0-16.0); Immature Granulocytes # (auto) 0.02 K/uL (0.00-0.02); Immature Granulocytes % (auto) 0.4 %; Lymphocytes # (auto) 1.07 K/uL (1.2-3.4); Lymphocytes % (auto) 20.5 %; Mean Corpuscular Hemoglobin 30.6 pg (25-34); Mean Corpuscular Hgb Conc 32.7 g/dL (32-36); Mean Corpuscular Volume 93.4 fL (80-100); Mean Platelet Volume 9.9 fL (7.4-10.4); Monocytes # (auto) 0.35 K/uL (0.11-0.59); Monocytes % (auto) 6.7 %; Neutrophils # (auto) 3.73 K/uL (1.4-6.5); Neutrophils % (auto) 71.6 %; Nucleated RBC # (auto) 0.03 K/uL (0-0); Nucleated RBC % (auto) 0.5 %; Platelet Count 143 K/uL (130-400); RDW Coefficient of Variation 24.1 % (11.5-14.5); RDW Standard Deviation 76.8 fL (36.4-46.3); Red Blood Count 2.88 M/uL (4.2-5.4); White Blood Count 5.21 K/uL (4.8-10.8)
[2020-02-03 15:56] LABS: INR 1.1 (0.9-1.1); Partial Thromboplastin Ratio 0.9; Partial Thromboplastin Time 26.2 Seconds (21.0-31.0); Prothrombin Time 11.9 Seconds (9.0-12.0)
--- NOTE | 2020-02-03 15:57 | XRay Report ---
XR chest 1V portable HISTORY: 64 years-old Female Chest Pain acute atypical chest pain COMPARISON: Chest radiograph 01/11/2020 TECHNIQUE: Portable AP view the chest FINDINGS: Unchanged right hilar prominence. Coronary arterial stent. Right IJ Birpaz-u-Quii catheter distal tip terminates in the expected location of the brachiocephalic SVC confluence. No pneumothorax, pleural effusion, new airspace consolidation or overt pulmonary edema. Ill-defined 1.9 cm opacity projecting over the lateral right upper lung may be projectional. Bones of the chest appear grossly intact. IMPRESSION: No acute process. ACT 112: Negative or not required by law. The above report was generated using voice recognition software. It may contain grammatical, syntax o r spelling errors. Electronically signed by: Dannie Estrada M.D. 02/03/2020 3:55 PM
[2020-02-03 16:05] LABS: Anisocytosis Present; Ovalocytes 1+; Polychromasia 1+; Tear Drop Cells 1+
[2020-02-03 16:07] LABS: Alanine Aminotransferase 22 U/L (12-78); Albumin Level 2.3 gm/dl (3.4-5.0); Aspartate Aminotransferase 22 U/L (15-37); BUN Creatinine Ratio 9.7 (10-20); Blood Urea Nitrogen 7 mg/dl (7-18); Calcium 8.3 mg/dl (8.5-10.1); Carbon Dioxide 28 mmol/L (21-32); Chloride 102 mmol/L (98-107); Creatinine Clr Calc Pharmacy 88.6 ml/min; Est GFR (African American) 99.2; Est GFR (Non-African American) 85.6; Glucose 101 mg/dl (70-99); Lipase 28 U/L (73-393); Potassium 3.2 mmol/L (3.5-5.1); Sodium 138 mmol/L (136-145)
[2020-02-03 16:11] LABS: Albumin Globulin Ratio 0.7 (0.9-2); Alkaline Phosphatase 126 U/L (45-117); Bilirubin,Total 0.4 mg/dl (0.2-1); Globulin 3.4 gm/dl (2.5-4.0); Total Protein 5.7 gm/dl (6.4-8.2); Troponin I < 0.015 ng/ml (0-0.045)
[2020-02-03] MEDS ORDERED: IOVERSOL 100ml IV ONE (17:02)
--- NOTE | 2020-02-03 17:15 | CT Scan Report ---
CT head/brain wo con CLINICAL HISTORY: 64 years-old Female with fall. Acute head trauma status post fall TECHNIQUE: Multiple axial CT images of the head were obtained without contrast. A dose lowering tech nique was utilized adhering to the principles of ALARA. COMPARISON: Head CT 01/05/2020 FINDINGS: No acute intracranial hemorrhage, midline shift, intracranial mass, hydrocephalus, territorial ischem ia or abnormal extra-axial collection. Mild age-related involutional changes. Cerebral vascular calci fications. The calvarium is intact. Trace left mastoid effusion. The right mastoid air cells are clear. Partial ly imaged polypoid mucosal thickening of the left maxillary sinus. The soft tissues and orbits are un remarkable. IMPRESSION: No acute intracranial abnormality or calvarial fracture. ACT 112: Negative or not required by law. The above report was generated using voice recognition software. It may contain grammatical, syntax o r spelling errors. Electronically signed by: Dannie Estrada M.D. 02/03/2020 5:14 PM
[2020-02-03] MEDS ORDERED: SODIUM CHLORIDE 0.9% 1000ML 500 ML IV ONE ×2 (17:20→18:05)
--- NOTE | 2020-02-03 17:29 | CT Scan Report ---
CT lumbar spine wo con HISTORY: 64 years-old Female lower back pain . Acute low back pain status post fall. History of lung cancer. COMPARISON: CT abdomen and pelvis of same day, CT abdomen and pelvis 12/23/2019 TECHNIQUE: Multiple axial CT images of the lumbar spine were obtained without the use of IV contrast. A dose lowering technique was used consistent with the principals of JUAN. FINDINGS: Moderate to severe multilevel facet arthrosis. Demineralized appearance of the bones. Mild to moderat e disc space narrowing with vacuum disc phenomena and spondylitic spurring at L1-L2. The imaged sacru m and iliac bones appear intact. Moderate degeneration of the SI joints. No suspicious bone lesions. No acute fracture or subluxation. No paravertebral edema. Mild central canal stenosis at L3-L4 secondary to posterior annular disc bulg e with ligamentum flavum thickening and facet arthrosis. Additionally, there is suggestion of mild le ft-sided foraminal narrowing. IMPRESSION: No acute fracture or subluxation. ACT 112: Negative or not required by law. The above report was generated using voice recognition software. It may contain grammatical, syntax o r spelling errors. Electronically signed by: Dannie Estrada M.D. 02/03/2020 5:28 PM
--- NOTE | 2020-02-03 17:40 | CT Scan Report ---
ABDOMEN AND PELVIS CT WITH IV CONTRAST HISTORY: Acute low back pain status post fall fall hit back TECHNIQUE: Multiaxial CT images of the abdomen and pelvis were performed following the IV administrat ion of 92 cc of Optiray 320, A dose lowering technique was utilized adhering to the principles of AL POLY. COMPARISON STUDY: CT lumbar spine of same day, CT abdomen and pelvis 12/23/2019 FINDINGS: Mild dependent subsegmental bibasilar atelectasis. There is no pneumatosis or pneumoperiton eum. The imaged inferior cardiac chambers are unremarkable. The spleen, adrenal glands, gallbladder a nd liver are unremarkable. Patency of the hepatic and portal veins. Mild to moderate generalized panc reatic atrophy. Kidneys, ureters, urinary bladder and uterus are unremarkable. Plaque of the abdomina l aorta with mild distal ectasia, 2.4 cm. There is no adenopathy. Mild nonspecific distal esophageal wall thickening with tiny hiatal hernia. No bowel obstruction or b owel wall thickening. Normal appendix. There is a 20% superior endplate compression deformity at T11 which demonstrate mild paravertebral edema without retropulsion, significant central canal or foramin al narrowing, new from 12/23/2019. Bones otherwise appear unremarkable and intact. IMPRESSION: 1. No acute intra-abdominal or intrapelvic abnormality. 2. Acute 20% superior endplate compression deformity of T11 with mild paravertebral edema and no retr opulsion. 3. Additional findings as above. ACT 112: Negative or not required by law. The above report was generated using voice recognition software. It may contain grammatical, syntax o r spelling errors. Electronically signed by: Dannie Estrada M.D. 02/03/2020 5:39 PM
[2020-02-03] MEDS ORDERED: MoRPHine SULFATE 2 MG/ML CARP IV STA (18:05)
[2020-02-03] MEDS ORDERED: CIPROFLOXACIN 500 MG TAB PO STA (18:05)
--- NOTE | 2020-02-03 18:13 | Emergency Department Note ---
ED Visit Note Trying to give a urine now but as she is still slightly tachycardic, did give a dose of Cipro orally to be on the safe side in case this is a UTI. Dr. Cardoza bedside. . : Fall Qualifiers: Encounter type: initial encounter Qualified Code(s): W19.XXXA - Unspecified fall, initial encounter Back pain Qualifiers: Back pain location: low back pain Chronicity: acute Back pain laterality: unspecified Sciatica presence: unspecified whether sciatica present Qualified Code(s): M54.5 - Low back pain Closed fracture of T11 vertebra Qualifiers: Encounter type: initial encounter Fracture morphology: unspecified fracture morphology Qualified Code(s): S22.089A - Unspecified fracture of T11-T12 vertebra, initial encounter for closed fracture
[2020-02-03] MEDS ORDERED: ALBUTEROL HFA 8 GM INHALER INH PRN (20:03)
[2020-02-03] MEDS ORDERED: hydrOXYzine HCl 25 MG TAB PO PRN ×3 (20:03→20:59)
--- NOTE | 2020-02-03 20:22 | History & Physical Report ---
Date of Service February 03, 2020 Assessment & Plan (1) Fall: (2) Weakness: (3) Closed fracture of T11 vertebra: 64-year-old female history of small cell lung cancer, on chemo and radiation therapy, pancytopenia, intractable nausea vomiting, recent acute CVA, currently being treated for right upper extremity DVT, COPD, other plans are below presenting with weakness and fall. Generalized weakness, status post fall, presyncope Likely secondary to deconditioning Rule out orthostasis -- CT head no acute process CT abdomen pelvis thoracic compression fracture T11 CT lumbar spine no acute fracture --PT and OT evaluation Gentle NSS May need to transition to rehab T11 compression fracture Status post mechanical fall -- Consult orthospine Dr. Puente Small cell lung cancer, undergoing chemotherapy and radiation therapy -- With intractable nausea vomiting, pancytopenia -- Continue scheduled Compazine, Protonix, sucralfate, bowel regimen -- CBC stable Right upper extremity DVT, recent diagnosis -- From admission last week Continue Lovenox 90 mg subcu every 12 hours Acute CVA --Recent diagnosis --From admission last month --Aspirin and Plavix recently discontinued in light of patient's initiation of Lovenox for DVT --Continue Lipitor Hypokalemia -- Replace with p.o. potassium Check magnesium COPD Letter exacerbation Continue Anoro DVT prophylaxis Already on Lovenox therapeutic dosing for recent DVT Full code as per patient Disposition PT and OT evaluation May need to transition to rehab Plan of care discussed in detail with patient All questions were answered She is understanding, agreeable, comfortable with the plan of care Admission and Anticipated Discharge Date Admission Date: February 03, 2020 History of Present Illness 64-year-old female history of small cell lung cancer, on chemo and radiation therapy, pancytopenia, intractable nausea vomiting, recent acute CVA, currently being treated for right upper extremity DVT, COPD, other plans are below p resenting with weakness and fall. Patient was recently admitted to [facility] and was discharged January 29, 2020 after being admitted for intractable nausea and vomiting and was found to have right upper extremity DVT. Patient was discharged on Lovenox 90 mg every 12 hours. At home, the patient states that he was she was initially doing fine until yesterday when she started to feel generally weak again. She reports that her appetite has been good so far. She takes Dilaudid orally 2 times per day for pain over the right chest wall area related to radiation. This morning, patient was standing in her living room when she started to feel weak and her legs felt weak and gave out, causing her to fall backwards. She hit her lower back on a piece of furniture and slid down the floor. Patient denies hitting her head or any other part of her body during the fall. Patient was too weak to get up but fortunately home health service staff was present to help her. EMT was called. At the ER, patient was received with blood pressure of 112/82, heart rate 112, respiratory 22, saturating 97% room air, temperature 37.3. CT head: No acute process CT abdomen pelvis: 1. No acute intra-abdominal or intrapelvic abnormality. 2. Acute 20% superior endplate compression deformity of T11 with mild paravertebral edema and no retropulsion. CT lumbar spine: IMPRESSION: No acute fracture or subluxation. Patient was given IV NSS and IV morphine at the ER On exam, patient seen resting in bed, sitting up, not in distress, awake alert oriented x3. Reports feeling weak overall and mild low back pain. Denies headache, dizziness, chest pain, palpitations, dizziness, abdominal pain, has intermittent nausea and vomiting, no problems with urination or bowel movement. Primary Care Provider: Rosa Crooks DO Allergies Allergy/AdvReac Type Severity Reaction Status Date / Time mushroom Allergy Severe anaphylaxis Verified 02/03/20 16:48 Penicillins Allergy Severe anaphylaxis, Verified 02/03/20 16:48 facial & throat swelling acetazolamide Allergy Intermediate rash, hives Verified 02/03/20 16:48 mold Allergy Unknown unknown Verified 02/03/20 16:48 reaction sumatriptan AdvReac Intermediate flushing, Verified 02/03/20 16:48 heart racing Home Medications Home Medications Medication Instructions Recorded Confirmed Type aripiprazole 10 mg tablet 10 mg PO HS 09/18/19 02/03/20 History albuterol sulfate 90 mcg/actuation 2 puff INH Q6H PRN #18 gm 10/23/19 02/03/20 Rx aerosol inhaler umeclidinium 62.5 mcg-vilanterol 1 puffs INH DAILY #60 ea 10/23/19 02/03/20 Rx 25 mcg/actuation powdr for inhalation multivitamin 1 tab PO QAM 11/08/19 02/03/20 History nicotine 14 mg/24 hr daily 1 patch TD DAILY #28 ea 11/12/19 02/03/20 Rx transdermal patch hydroxyzine HCl 50 mg PO UD PRN 12/23/19 02/03/20 History melatonin 5 mg PO HS PRN 12/23/19 02/03/20 History ondansetron HCl [Zofran] 8 mg PO Q8 PRN 12/23/19 02/03/20 History duloxetine 60 mg PO DAILY 01/03/20 02/03/20 History olanzapine [Zyprexa] 10 mg PO UD 01/03/20 02/03/20 History atorvastatin 40 mg PO HS 30 Days #30 tab 01/08/20 02/03/20 Rx nystatin 10 ml PO QID 30 Days #400 ml 01/23/20 02/03/20 Rx polyethylene glycol 3350 [Miralax] 17 g PO DAILY 30 Days #510 g 01/23/20 02/03/20 Rx sucralfate 10 ml PO QID 30 Days #1200 ml 01/23/20 02/03/20 Rx docusate sodium 100 mg PO BID #0 cap 01/26/20 02/03/20 Rx enoxaparin 90 mg SC Q12H 30 Days #54 ml 01/26/20 02/03/20 Rx hydromorphone [Dilaudid] 4 mg PO Q6H PRN #30 tab 01/26/20 02/03/20 Rx prochlorperazine maleate 10 mg PO TID 30 Days #90 tab 01/26/20 02/03/20 Rx [Compazine] sennosides-docusate sodium 1 tab PO QAM #0 tab 01/26/20 02/03/20 Rx [Senokot-S] omeprazole 20 mg PO BID 30 Days #60 cap 01/27/20 02/03/20 Rx pantoprazole [Protonix] 40 mg PO DAILY #30 ea 01/29/20 02/03/20 Rx Past Med/Surg History Medical History (Updated 02/03/20 @ 17:45 by Kj Maxwell DO) Acute kidney injury Acute shoulder pain Now a constant ache - no prescription meds needed Anxiety Chronic venous insufficiency follows with vascular (Dr. Carlson) CKD (chronic kidney disease), stage III COPD with emphysema Dentalgia Depression Hypertension Kidney stones LAD (lymphadenopathy), mediastinal Major depressive disorder, recurrent episode with anxious distress Daughter from OD in 2016 Migraine Nausea & vomiting Neutropenia with fever Nicotine dependence Pancytopenia Polysubstance overdose Hx of 2017 Pulmonary nodule "7 mm RUL nodule, stable 09/25/15 - 09/16/16; repeat 6 mos" Surgical History History of bronchoscopy 10/30/2019 - with EBUS History of cataract surgery 2004 - bilateral History of section 1991 History of colonoscopy unsuccessful (poor bowel prep) History of cystoscopy 2007 - with stent History of dental surgery 02/2019 - Full upper teeth extracted S/P arthroscopy of left knee S/P arthroscopy of right knee Family History Grandmother (Maternal) , Passed in 80's of metastatic cancer (unknown primary) No problems noted. Mother , Passed age 93 of natural causes No problems noted. Father , Passed age 97 of natural causes No problems noted. Brother No problems noted. Daughter , Passed age 24 from Over Dose No problems noted. 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 [employer] Feels Safe at Home: Yes Childhood Exposure to Second-Hand Smoke: No caffeine: Yes (2 cups of coffee/day ) during the past year weight has: remained stable Dental Care, Regularly: Yes Assistive Devices: None Review of Systems Review of Systems: All systems reviewed & are unremarkable except as noted in Subjective Physical Exam Physical Exam: General- oriented x 3, not in distress, speaks in sentences with no effort or accessory muscle use Head- atraumatic Eyes- PERRL, EOMI, anicteric ENT- oropharynx clear Neck- supple, no JVD, no adenopathy, no thyromegaly; carotids +2/2, no bruits appreciated Lungs- clear to auscultation bilaterally, no rales/wheezes Heart- Mild tachycardia, regular rhythm; no murmur, no gallop, no rub appreciated Abdomen- normal bowel sounds, nondistended, soft, nontender, no masses or hepatosplenomegaly Extremities- Mild bilateral lower leg edema, no calf tenderness; peripheral pulses intact Mild right upper extremity edema Neuro- alert, oriented x 3; CN 2-12 grossly intact; motor 5/5 gurwinder aterally;sensation 100% on all extremities; no other gross focal neurologic deficits Skin- warm & dry Results & Data Results & Data ([facility]) Vital Signs (Past 12 Hours) Vital Signs Temp Pulse Resp BP Pulse Ox 02/03/20 19:30 108 H 16 93/72 L 93 02/03/20 19:00 104 H 16 98/71 L 93 02/03/20 18:30 102 H 14 111/77 92 02/03/20 18:11 113 H 16 128/81 92 02/03/20 18:09 116 H 19 81/42 L 02/03/20 18:00 104 H 15 90/60 L 93 02/03/20 17:30 101 H 12 116/68 94 02/03/20 17:14 102 H 18 97/69 L 96 02/03/20 16:30 104 H 15 91/66 L 94 02/03/20 16:02 103 H 19 93 02/03/20 16:01 103 H 16 102/66 96 02/03/20 16:00 103 H 15 94 02/03/20 15:30 106 H 20 114/85 95 02/03/20 15:16 112 H 22 97 02/03/20 15:07 116 H 12 112/82 97 02/03/20 15:04 37.3 C 112 H 22 112/82 97 Laboratory Results Laboratory Results - last 24 hr 02/03/20 02/03/20 02/03/20 15:34 15:34 15:34 WBC 5.21 RBC 2.88 L Hgb 8.8 L Hct 26.9 L MCV 93.4 MCH 30.6 MCHC 32.7 RDW Std Deviation 76.8 H RDW Coeff of Anjelica 24.1 H Plt Count 143 MPV 9.9 Immature Gran % (Auto) 0.4 Neut % (Auto) 71.6 Lymph % (Auto) 20.5 Nicollet % (Auto) 6.7 Eos % (Auto) 0.6 Baso % (Auto) 0.2 Neut # (Auto) 3.73 Lymph # (Auto) 1.07 L Nicollet # (Auto) 0.35 Eos # (Auto) 0.03 Baso # (Auto) 0.01 Immature Gran # (Auto) 0.02 Absolute Nucleated RBC 0.03 H Nucleated RBC % (auto) 0.5 Polychromasia 1+ Anisocytosis Present Tear Drop Cells 1+ Ovalocytes 1+ PT 11.9 INR 1.1 APTT 26.2 PTT Ratio 0.9 Sodium 138 Potassium 3.2 L Chloride 102 Carbon Dioxide 28 Anion Gap 8.0 BUN 7 Creatinine 0.74 Est Cr Clr Drug Dosing 88.6 Est GFR ( Amer) 99.2 Est GFR (Non-Af Amer) 85.6 BUN/Creatinine Ratio 9.7 L Glucose 101 H Calcium 8.3 L Total Bilirubin 0.4 AST 22 ALT 22 Alkaline Phosphatase 126 H Troponin I < 0.015 Total Protein 5.7 L Albumin 2.3 L Globulin 3.4 Albumin/Globulin Ratio 0.7 L Lipase 28 L Code Status & VTE Plan Code Status Full code VTE Prophylaxis Plan VTE Prophylaxis will be ordered: Yes (1) Fall Encounter type: initial encounter Qualified Code(s): W19.XXXA - Unspecified fall, initial encounter (2) Closed fracture of T11 vertebra Encounter type: initial encounter Fracture morphology: unspecified fracture morphology Qualified Code(s): S22.089A - Unspecified fracture of T11-T12 vertebra, initial encounter for closed fracture
[2020-02-03] MEDS ORDERED: MELATONIN 3 MG TAB PO PRN (20:28)
[2020-02-03] MEDS ORDERED: POTASSIUM CHLORIDE CRTAB 20 MEQ TABCR PO STA (20:29)
[2020-02-03] MEDS ORDERED: NSS + 20MEQ KCL 20 MEQ/1,000 ML BAG IV SCH (20:30)
[2020-02-03] MEDS: ARIPiprazole 10 MG TAB PO SCH (21:34)
[2020-02-03] MEDS: SUCRALFATE 1 GM/10 ML UDC PO SCH (21:34)
[2020-02-03] MEDS: NYSTATIN SUSP 500,000 U/5 ML UDC PO SCH (21:35)
[2020-02-03] MEDS: DOCUSATE SODIUM 100 MG CAP PO SCH (21:35)
[2020-02-03] MEDS: ATORVASTATIN 40 MG TAB PO SCH (21:35)
[2020-02-03] MEDS: ENOXAPARIN 80 MG/0.8 ML SYR SQ SCH (21:36)
[2020-02-03] MEDS ORDERED: POTASSIUM CHLORIDE PWD 20 MEQ PACK PO STA (21:52)
[2020-02-03] MEDS: HYDROmorphone HCL 2 MG TAB PO PRN (22:15)
[2020-02-04] MEDS ORDERED: NORMOSOL-R 500 ML IV ONE (00:03)
[2020-02-04 00:47] LABS: Basophils # (auto) 0.01 K/uL (0-0.2); Basophils % (auto) 0.2 %; Eosinophils # (auto) 0.11 K/uL (0-0.5); Eosinophils % (auto) 2.1 %; Hematocrit (blood only) 27.5 % (37-47); Hemoglobin 8.8 g/dL (12.0-16.0); Immature Granulocytes # (auto) 0.05 K/uL (0.00-0.02); Lymphocytes # (auto) 0.46 K/uL (1.2-3.4); Lymphocytes % (auto) 8.8 %; Mean Corpuscular Hemoglobin 30.2 pg (25-34); Mean Corpuscular Volume 94.5 fL (80-100); Mean Platelet Volume 10.2 fL (7.4-10.4); Monocytes # (auto) 0.97 K/uL (0.11-0.59); Monocytes % (auto) 18.5 %; Neutrophils # (auto) 3.63 K/uL (1.4-6.5); Neutrophils % (auto) 69.4 %; Nucleated RBC # (auto) 0.04 K/uL (0-0); Nucleated RBC % (auto) 0.7 %; Platelet Count 153 K/uL (130-400); RDW Coefficient of Variation 24.7 % (11.5-14.5); RDW Standard Deviation 79.9 fL (36.4-46.3); Red Blood Count 2.91 M/uL (4.2-5.4); White Blood Count 5.23 K/uL (4.8-10.8)
[2020-02-04 01:09] LABS: BUN Creatinine Ratio 7.5 (10-20); Calcium 7.9 mg/dl (8.5-10.1); Creatinine Clr Calc Pharmacy 84.7 ml/min; Est GFR (African American) 107.1; Est GFR (Non-African American) 92.4; Magnesium 1.6 mg/dl (1.8-2.4); Potassium 3.7 mmol/L (3.5-5.1)
[2020-02-04 01:13] LABS: Anisocytosis Present; Polychromasia 1+; Tear Drop Cells 1+
[2020-02-04 01:21] LABS: Appearance Urine Clear (Clear); Bilirubin Urine Negative (Negative); Blood Urine Negative (Negative); Color Urine Yellow; Glucose Urine UA Negative (Negative); Ketones Urine 1+ (Negative); Leukocyte Esterase Urine Negative (Negative); Nitrite Urine Negative (Negative); Protein Urine Negative (Negative); Specific Gravity Urine 1.025 (1.000-1.030); Urobilinogen Urine Negative (Negative)
[2020-02-04] MEDS ORDERED: MAGNESIUM SULFATE / D5W 1 GM/100 ML BAG IV ONE (01:31)
[2020-02-04] MEDS ORDERED: LACTATED RINGER'S 1,000 ML IV ONE (01:31)
[2020-02-04] MEDS ORDERED: DEXAMETHASONE SOD PHOSPHATE 4 MG in SYRINGE 0 ML IV STA ×2 (01:41→04:30)
--- NOTE | 2020-02-04 01:41 | Communication Note ---
Date of Service: February 04, 2020 Made aware by RN of SBP 60 to 80s despite IVF boluses/administration. Patient asymptomatic. AP Hypotension ? Adrenal insufficiency hx SCLC, intermittent outpatient courses of Decadron Rx Decadron 1 dose now Continue IVF Will relay to AM provider.
[2020-02-04] MEDS ORDERED: NORMOSOL-R 1,000 ML IV SCH (02:15)
--- NOTE | 2020-02-04 06:26 | Electrocardiogram Report ---
Test Reason : Blood Pressure : / mmHG Vent. Rate : 112 BPM Atrial Rate : 112 BPM P-R Int : 116 ms QRS Dur : 076 ms QT Int : 324 ms P-R-T Axes : 051 066 071 degrees QTc Int : 442 ms Sinus tachycardia Otherwise normal ECG When compared with ECG of 11-JAN-2020 15:33, No significant change was found Confirmed by Dorian Mascorro ([id number]) on 02/04/2020 6:26:48 AM Referred By: REFERRED SELF Confirmed By:Dorian Mascorro
[2020-02-04] MEDS: PROCHLORPERAZINE MALEATE 10 MG TAB PO SCH ×3 (08:12→17:09)
[2020-02-04] MEDS: MAGNESIUM OXIDE 400 MG TAB PO SCH ×2 (08:12→20:43)
[2020-02-04] MEDS: DOCUSATE SODIUM 100 MG CAP PO SCH ×2 (08:12→20:42)
[2020-02-04] MEDS: SUCRALFATE 1 GM/10 ML UDC PO SCH ×5 (08:12→20:42)
[2020-02-04] MEDS: MULTIVITAMIN TAB PO SCH (08:13)
[2020-02-04] MEDS: DOCUSATE SODIUM/SENNA 50/8.6MG TAB PO SCH (08:13)
[2020-02-04] MEDS: PANTOprazole 40 MG TAB PO SCH (08:13)
[2020-02-04] MEDS: POLYETHYLENE (MIRALAX) 17 GM PACK PO SCH (08:13)
[2020-02-04] MEDS: DULoxetine HCL 60 MG CAP PO SCH (08:13)
[2020-02-04] MEDS: NYSTATIN SUSP 500,000 U/5 ML UDC PO SCH ×5 (08:13→20:43)
[2020-02-04] MEDS: NICOTINE 14 MG/24 HR PATCH TD SCH (08:14)
[2020-02-04] MEDS: UMECLIDINIUM/VILANTEROL 62.5/25MCG 7 PUFFS/INHALER INH SCH (08:14)
[2020-02-04] MEDS ORDERED: NICOTINE TD SCH (09:00)
[2020-02-04] MEDS: ONDANSETRON 4 MG OD TAB PO PRN (10:29)
[2020-02-04] MEDS: ENOXAPARIN 80 MG/0.8 ML SYR SQ SCH ×2 (10:29→20:43)
[2020-02-04] MEDS ORDERED: HYDROCORTISONE 10 MG TAB PO SCH (10:45)
--- NOTE | 2020-02-04 11:32 | Communication Note ---
Date of Service: February 04, 2020 pt remains chronically hypotensive , asymptomatic while lying down , received fluid bolus overnight with no response complains of dizzy spell while standing for a minute Orthostatic vitals shows no significant drop received IV Decadron last night for possible adrenal insufficiency ordered for schedule dose of PO decadron 10 mg BID pt admitted with fall /with pathologic fracture of T11 vertebrae spinal orthopedics consulted Xray of thoracic spine 3 view ordered -pt will require to stand for the Xray spoke with radiology -due to risk of fall while standing , Xray d/madiha ordered for CT of thoracic spine w/o contrast Evy Vargas MD
[2020-02-04] MEDS: hydrOXYzine HCl 25 MG TAB PO SCH ×2 (13:03→20:41)
--- NOTE | 2020-02-04 13:03 | CT Scan Report ---
CT thoracic spine wo con CT DOSE: 1090.74 mGy.cm CLINICAL HISTORY: fracture of T11 vertebra back pain TECHNIQUE: Helical images were acquired in the transverse plane. Sagittal and coronal reformatted king ges were acquired. A dose lowering technique was utilized adhering to the principles of ALARA. COMPARISON STUDY: CT angiography the chest dated December 23, 2019 FINDINGS: There is pulmonary emphysema. There is mild nonspecific esophageal wall thickening. There is a small hiatal hernia. No paraspinal masses are visualized. There is a superior endplate T11 compression deformity demonstrating 15% loss in height. IMPRESSION: 1. Superior endplate T11 compression deformities demonstrating 50% loss in height. No retropulsion. ACT 112: Negative or not required by law. Electronically signed by: Derek Vasquez M.D. 02/04/2020 1:02 PM
--- NOTE | 2020-02-04 13:23 | Consultation ---
Date of Consultation February 04, 2020 Assessment & Plan (1) Closed fracture of T11 vertebra: Patient has an acute superior endplate compression fracture with roughly 15% loss in height at T11 status post fall yesterday. I have discussed options. We have elected due to her recent/acute medical issues to continue with conservative treatment. She has elected to forego TLSO bracing. Ambulate ad dennys. Recommend lifting no greater than 5 pounds. Continue with pain control. Would recommend PT/OT consult. May need rehab upon discharge. Supervising Physician Co-Signing Physician Notes Dr. Gilberto Puente History of Present Illness July is a pleasant 64-year-old female that we are asked to see in consultation regarding an acute T11 compression fracture. Patient is battling small cell lung carcinoma and currently undergoing treatment with chemotherapy and radiation. CVA as well as DVT in last week from the hospital. the right upper extremity and was discharged She has had a recent She reports yesterday she got up and her legs were feeling quite weak and she fell backwards landing on a piece of furniture. She was unable to get up on her own. She states she has been starting to use a walker due to generalized weakness at home. Denies radicular leg paresthesias, pain, numbness. She denies any prior history of thoracic or lumbar issues in the past. Attending Physician: Evy Vargas MD Allergies Allergy/AdvReac Type Severity Reaction Status Date / Time mushroom Allergy Severe anaphylaxis Verified 02/03/20 16:48 Penicillins Allergy Severe anaphylaxis, Verified 02/03/20 16:48 facial & throat swelling acetazolamide Allergy Intermediate rash, hives Verified 02/03/20 16:48 mold Allergy Unknown unknown Verified 02/03/20 16:48 reaction sumatriptan AdvReac Intermediate flushing, Verified 02/03/20 16:48 heart racing Home Medications Home Medications Medication Instructions Recorded Confirmed Type aripiprazole 10 mg tablet 10 mg PO HS 09/18/19 02/03/20 History albuterol sulfate 90 mcg/actuation 2 puff INH Q6H PRN #18 gm 10/23/19 02/03/20 Rx aerosol inhaler umeclidinium 62.5 mcg-vilanterol 1 puffs INH DAILY #60 ea 10/23/19 02/03/20 Rx 25 mcg/actuation powdr for inhalation multivitamin 1 tab PO QAM 11/08/19 02/03/20 History nicotine 14 mg/24 hr daily 1 patch TD DAILY #28 ea 11/12/19 02/03/20 Rx transdermal patch hydroxyzine HCl 50 mg PO UD PRN 12/23/19 02/03/20 History melatonin 5 mg PO HS PRN 12/23/19 02/03/20 History ondansetron HCl [Zofran] 8 mg PO Q8 PRN 12/23/19 02/03/20 History duloxetine 60 mg PO DAILY 01/03/20 02/03/20 History olanzapine [Zyprexa] 10 mg PO UD 01/03/20 02/03/20 History atorvastatin 40 mg PO HS 30 Days #30 tab 01/08/20 02/03/20 Rx nystatin 10 ml PO QID 30 Days #400 ml 01/23/20 02/03/20 Rx polyethylene glycol 3350 [Miralax] 17 g PO DAILY 30 Days #510 g 01/23/20 02/03/20 Rx sucralfate 10 ml PO QID 30 Days #1200 ml 01/23/20 02/03/20 Rx docusate sodium 100 mg PO BID #0 cap 01/26/20 02/03/20 Rx enoxaparin 90 mg SC Q12H 30 Days #54 ml 01/26/20 02/03/20 Rx hydromorphone [Dilaudid] 4 mg PO Q6H PRN #30 tab 01/26/20 02/03/20 Rx prochlorperazine maleate 10 mg PO TID 30 Days #90 tab 01/26/20 02/03/20 Rx [Compazine] sennosides-docusate sodium 1 tab PO QAM #0 tab 01/26/20 02/03/20 Rx [Senokot-S] omeprazole 20 mg PO BID 30 Days #60 cap 01/27/20 02/03/20 Rx pantoprazole [Protonix] 40 mg PO DAILY #30 ea 01/29/20 02/03/20 Rx Patient History Medical History Acute kidney injury Acute shoulder pain Now a constant ache - no prescription meds needed Anxiety Chronic venous insufficiency follows with vascular (Dr. Carlson) CKD (chronic kidney disease), stage III COPD with emphysema Dentalgia Depression Hypertension Kidney stones LAD (lymphadenopathy), mediastinal Major depressive disorder, recurrent episode with anxious distress Daughter from OD in 2016 Migraine Nausea & vomiting Neutropenia with fever Nicotine dependence Pancytopenia Polysubstance overdose Hx of 2017 Pulmonary nodule "7 mm RUL nodule, stable 09/25/15 - 09/16/16; repeat 6 mos" Surgical History History of bronchoscopy 10/30/2019 - with EBUS History of cataract surgery 2004 - bilateral History of section 1991 History of colonoscopy unsuccessful (poor bowel prep) History of cystoscopy 2007 - with stent History of dental surgery 02/2019 - Full upper teeth extracted S/P arthroscopy of left knee S/P arthroscopy of right knee Family History Grandmother (Maternal) , Passed in 80's of metastatic cancer (unknown primary) No problems noted. Mother , Passed age 93 of natural causes No problems noted. Father , Passed age 97 of natural causes No problems noted. Brother No problems noted. Daughter , Passed age 24 from Over Dose No problems noted. 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 She is lying in bed. No acute distress. No ecchymosis or lacerations noted across the thoracolumbar spine. Nontender to palpation and percussion both lower lumbar spine. Strength is intact bilateral lower extremities. Constitutional: + ill appearing and cooperative Eyes: normal visual bush by confrontation ENMT: external ear and nose normal, oropharynx normal Neck: normal visual inspection Respiratory: normal respiratory effort Cardiovascular: Extremities: normal capillary refill Chest (Breasts): Chest: normal inspection of chest Gastrointestinal (Abdomen): Inspection/Auscultation: abdomen normal to inspection Musculoskeletal: no cyanosis or clubbing, extremities motor strength 5/5 Extremities: extremities normal to inspection and strength 5/5 throughout Skin: no rashes, warm and dry Neurologic: normal touch/pain/proprioception and moves all extremities Psychiatric: A+Ox3, euthymic affect Eye Contact: good eye contact Results & Data ([facility]) Vital Signs (Past 12 Hours) Vital Signs Temp Pulse Resp BP Pulse Ox 02/04/20 10:39 36.8 C 107 H 18 101/71 99 02/04/20 10:11 37 C 92 H 20 97/66 L 93 02/04/20 06:20 36.5 C 90 16 88/60 L 93 02/04/20 04:32 36.6 C 95 H 20 74/45 L 94 02/04/20 01:37 68/46 L 90 Diagnostic Findings [place], [place] [phone] CT Scan Report Patient: BREN BELTRAN EAdmit Date: 02/03/20 MR#: [id number] [facility] Acct ID:[id number]: [address] Date: [address] [place] [address] [place]: [place] [address] Age: 64Location: 2W Sex: FRoom/Bed: W260-1 Att Phy: Evy Vargas, MDDiagnosis: S/P FALL, THORACIC COMPRESSION FRACTURE Antonia Phy: Rosa Crooks DOService Date: 02/04/20 Fam Phy:Interpreting Phy: Derek Vasquez MD Admit Phy: Kemal Eduardo MD Ordering Phy: Evy Vargas MD cc: ~ CT thoracic spine wo con CT DOSE: 1090.74 mGy.cm CLINICAL HISTORY: fracture of T11 vertebra back pain TECHNIQUE: Helical images were acquired in the transverse plane. Sagittal and coronal reformatted images were acquired. A dose lowering technique was utilized adhering to the principles of ALARA. COMPARISON STUDY: CT angiography the chest dated December 23, 2019 FINDINGS: There is pulmonary emphysema. There is mild nonspecific esophageal wall thickening. There is a small hiatal hernia. No paraspinal masses are visualized. There is a superior endplate T11 compression deformity demonstrating 15% loss in height. IMPRESSION: 1. Superior endplate T11 compression deformities demonstrating 50% loss in height. No retropulsion. ACT 112: Negative or not required by law. Electronically signed by: Derek Vasquez M.D. 02/04/2020 1:02 PM Dictated: 02/04/20 1255 Transcribed: 02/04/20 1259 [place], [place] [phone] CT Scan Report Patient: BREN BELTRAN EAdmit Date: 02/03/20 MR#: [id number] [facility] Acct ID:[id number]: [address] Date: [address] [place] [address] Zip: [place] [address] Age: 64Location: ED Sex: FRoom/Bed: Att Phy:Diagnosis: FALL Antonia Phy: Rosa Crooks DOService Date: 02/03/20 [facility] Phy:Interpreting Phy: James Estrada Admit Phy: Ordering Phy: Kj Maxwell DO cc: ~ CT lumbar spine wo con HISTORY: 64 years-old Female lower back pain . Acute low back pain status post fall. History of lung cancer. COMPARISON: CT abdomen and pelvis of same day, CT abdomen and pelvis 12/23/2019 TECHNIQUE: Multiple axial CT images of the lumbar spine were obtained without the use of IV contrast. A dose lowering technique was used consistent with the principals of ALARA. FINDINGS: Moderate to severe multilevel facet arthrosis. Demineralized appearance of the bones. Mild to moderate disc space narrowing with vacuum disc phenomena and spondylitic spurring at L1-L2. The imaged sacrum and iliac bones appear intact. Moderate degeneration of the SI joints. No suspicious bone lesions. No acute fracture or subluxation. No paravertebral edema. Mild central canal stenosis at L3-L4 secondary to posterior annular disc bulge with ligamentum flavum thickening and facet arthrosis. Additionally, there is suggestion of mild left-sided foraminal na rrowing. IMPRESSION: No acute fracture or subluxation. ACT 112: Negative or not required by law. The above report was generated using voice recognition software. It may contain grammatical, syntax or spelling errors. Electronically signed by: Dannie Estrada M.D. 02/03/2020 5:28 PM Dictated: 02/03/201724 Transcribed: 02/03/201724 (1) Closed fracture of T11 vertebra Encounter type: initial encounter Fracture morphology: unspecified fracture morphology Qualified Code(s): S22.089A - Unspecified fracture of T11-T12 vertebra, initial encounter for closed fracture
--- NOTE | 2020-02-04 17:49 | Hospitalist Progress Note ---
Date of Service February 04, 2020 Assessment & Plan (1) Fall: (2) Weakness: (3) Closed fracture of T11 vertebra: 64-year-old female history of small cell lung cancer, on chemo and radiation therapy, pancytopenia, intractable nausea vomiting, recent acute CVA, currently being treated for right upper extremity DVT, COPD, other plans are below presenting with weakness and fall. Generalized weakness, status post fall, presyncope Likely secondary to deconditioning Rule out orthostasis -- CT head no acute process CT abdomen pelvis thoracic compression fracture T11 CT lumbar spine no acute fracture CT of thoracic spine: Shows superior endplate compression fracture at T11 Present back pain appears to be reasonably well controlled T11 compression fracture Status post mechanical fall --Appreciate input from spinal orthopedics Dr. Puente -Conservative management recommended, patient refused to have TLSO brace Refer PT OT, patient will benefit with short-term rehab Small cell lung cancer, undergoing chemotherapy and radiation therapy --We will consult radiation oncology to complete remaining sessions of radiation therapy -- Continue scheduled Compazine, Protonix, sucralfate, bowel regimen -- Right upper extremity DVT, recent diagnosis -- Continue therapeutic Lovenox 90 mg subcu every 12 hours Acute CVA --Recent diagnosis --Aspirin and Plavix recently discontinued in light of patient's initiation of Lovenox for DVT --Continue Lipitor Hypokalemia -- Replace with p.o. potassium Low magnesium: Replaced COPD Sign of exacerbation Continue Anoro DVT prophylaxis on Lovenox therapeutic dose Full code as per patient Disposition PT and OT evaluation Benefit with skilled rehab Plan of care discussed in detail with patient and her present at bedside All questions were answered She is understanding, agreeable, comfortable with the plan of care Admission and Anticipated Discharge Date Admission Date: February 03, 2020 Subjective Patient appears to be comfortable, denies of any back pain or discomfort at rest Blood pressure remains low, complains of feeling dizzy and lightheaded after standing up for 1 minute present at bedside, voiced concern that patient suffered 2 falls at home, Does not feel returning home will be safe for her Requesting for rehab referral, patient is agreeable for short-term rehab as well Review of Systems Review of Systems: All systems reviewed & are unremarkable except as noted in HPI & below Physical Exam Constitutional: + ill appearing; no acute distress Eyes: PERRL, conjunctivae normal, anicteric sclerae ENMT: external ear and nose normal, oropharynx normal Neck: trachea midline, no thyromegaly Respiratory: normal respiratory effort; no respiratory distress and no cough Cardiovascular: RRR, no murmur, no edema Gastrointestinal (Abdomen): Percussion/Palpation: abdomen soft; abdomen nontender Skin: no rashes, warm and dry Neurologic: PERRL, EOMI, accommodation nl, no face palsy, no dysarthria Psychiatric: A+Ox3, euthymic affect Results & Data Results & Data ([facility]) Vital Signs (Past 12 Hours) Vital Signs Temp Pulse Resp BP Pulse Ox 02/04/20 15:52 36.8 C 87 18 89/60 L 91 02/04/20 10:39 36.8 C 107 H 18 101/71 99 02/04/20 10:11 37 C 92 H 20 97/66 L 93 02/04/20 06:20 36.5 C 90 16 88/60 L 93 (1) Fall Encounter type: initial encounter Qualified Code(s): W19.XXXA - Unspecified fall, initial encounter (2) Closed fracture of T11 vertebra Encounter type: initial encounter Fracture morphology: unspecified fracture morphology Qualified Code(s): S22.089A - Unspecified fracture of T11-T12 vertebra, initial encounter for closed fracture
[2020-02-04] MEDS ORDERED: MIDODRINE HCL 2.5 MG TAB PO ONE (20:17)
[2020-02-04] MEDS: ARIPiprazole 10 MG TAB PO SCH (20:42)
[2020-02-04] MEDS: ATORVASTATIN 40 MG TAB PO SCH (20:42)
[2020-02-04] MEDS ORDERED: FLUDROCORTISONE ACETATE 0.1 MG TAB PO SCH (21:00)
[2020-02-04] MEDS ORDERED: SODIUM CHLORIDE 0.9% 500 ML IV SCH (23:00)
[2020-02-05] MEDS: SUCRALFATE 1 GM/10 ML UDC PO SCH ×4 (07:33→20:50)
[2020-02-05] MEDS: PROCHLORPERAZINE MALEATE 10 MG TAB PO SCH ×3 (07:33→17:08)
[2020-02-05] MEDS: MIDODRINE HCL 2.5 MG TAB PO SCH ×2 (07:34→12:08)
[2020-02-05] MEDS: HYDROmorphone HCL 2 MG TAB PO PRN ×2 (10:14→20:02)
[2020-02-05] MEDS: UMECLIDINIUM/VILANTEROL 62.5/25MCG 7 PUFFS/INHALER INH SCH (10:15)
[2020-02-05] MEDS: DOCUSATE SODIUM 100 MG CAP PO SCH ×2 (10:17→20:50)
[2020-02-05] MEDS: POLYETHYLENE (MIRALAX) 17 GM PACK PO SCH (10:18)
[2020-02-05] MEDS: MULTIVITAMIN TAB PO SCH (10:18)
[2020-02-05] MEDS: DULoxetine HCL 60 MG CAP PO SCH (10:18)
[2020-02-05] MEDS: NYSTATIN SUSP 500,000 U/5 ML UDC PO SCH ×4 (10:18→20:51)
[2020-02-05] MEDS: MAGNESIUM OXIDE 400 MG TAB PO SCH ×2 (10:18→20:51)
[2020-02-05] MEDS: DOCUSATE SODIUM/SENNA 50/8.6MG TAB PO SCH (10:19)
[2020-02-05] MEDS: NICOTINE 14 MG/24 HR PATCH TD SCH (10:19)
[2020-02-05] MEDS: PANTOprazole 40 MG TAB PO SCH (10:19)
[2020-02-05] MEDS: hydrOXYzine HCl 25 MG TAB PO SCH ×3 (10:20→20:49)
[2020-02-05] MEDS: ENOXAPARIN 80 MG/0.8 ML SYR SQ SCH ×2 (10:20→20:51)
[2020-02-05] MEDS: ONDANSETRON 4 MG OD TAB PO PRN (12:09)
[2020-02-05] MEDS ORDERED: MIDODRINE HCL 2.5 MG TAB PO ONE (13:26)
[2020-02-05] MEDS: MIDODRINE HCL 10 MG TAB PO SCH (17:07)
--- NOTE | 2020-02-05 18:32 | Hospitalist Progress Note ---
Date of Service February 05, 2020 Assessment & Plan (1) Fall: (2) Weakness: (3) Closed fracture of T11 vertebra: HYPOTENSION : persistently hypotensive -noted in past admissions as well started on Midodrine dose increased to 10 mg TID pt usually remains asymptomatic will start on Florinef - SBP in low 70's -60 ordered for 250 ml NSS bolus 64-year-old female history of small cell lung cancer, on chemo and radiation therapy, pancytopenia, intractable nausea vomiting, recent acute CVA, currently being treated for right upper extremity DVT, COPD, other plans are below presenting with weakness and fall. Generalized weakness, status post fall, presyncope Likely secondary to deconditioning Rule out orthostasis -- CT head no acute process CT abdomen pelvis thoracic compression fracture T11 CT lumbar spine no acute fracture CT of thoracic spine: Shows superior endplate compression fracture at T11 currently back pain appears to be reasonably well controlled T11 compression fracture Status post mechanical fall --Appreciate input from spinal orthopedics Dr. Puente -Conservative management recommended, patient refused to have TLSO brace Refer PT OT, patient will benefit with short-term rehab Small cell lung cancer, undergoing chemotherapy and radiation therapy -receieved radiation tx today -- Continue scheduled Compazine, Protonix, sucralfate, bowel regimen -- Right upper extremity DVT, recent diagnosis -- Continue therapeutic Lovenox 90 mg subcu every 12 hours Acute CVA --Recent diagnosis --Aspirin and Plavix recently discontinued in light of patient's initiation of Lovenox for DVT --Continue Lipitor Hypokalemia -- Replace with p.o. potassium Low magnesium: Replaced COPD Sign of exacerbation Continue Anoro DVT prophylaxis on Lovenox therapeutic dose Full code as per patient Disposition PT and OT evaluation Benefit with skilled rehab-referral made to [facility] Plan of care discussed in detail with patient and her present at bedside All questions were answered She is understanding, agreeable, comfortable with the plan of care Admission and Anticipated Discharge Date Admission Date: February 03, 2020 Subjective had radiation tx today back was worsened as pt had to lie down for the therapy symptoms better after taking pain meds Remains hypotensive SBP in 70-60 , asymptomatic Physical Exam Constitutional: + ill appearing; no acute distress Eyes: PERRL, conjunctivae normal, anicteric sclerae ENMT: external ear and nose normal, oropharynx normal Neck: trachea midline, no thyromegaly Respiratory: normal respiratory effort; no respiratory distress and no cough Cardiovascular: RRR, no murmur, no edema Gastrointestinal (Abdomen): Percussion/Palpation: abdomen soft; abdomen nontender Skin: no rashes, warm and dry Neurologic: PERRL, EOMI, accommodation nl, no face palsy, no dysarthria Psychiatric: A+Ox3, euthymic affect Results & Data Results & Data ([facility]) Vital Signs (Past 12 Hours) Vital Signs Temp Pulse Resp BP Pulse Ox 02/05/20 15:45 36.6 C 95 H 18 73/50 L 92 02/05/20 12:26 102 H 99/63 L 02/05/20 11:18 36.6 C 81 18 77/52 L 95 02/05/20 07:25 36.7 C 83 18 70/42 L 94 (1) Closed fracture of T11 vertebra Encounter type: initial encounter Fracture morphology: unspecified fracture morphology Qualified Code(s): S22.089A - Unspecified fracture of T11-T12 vertebra, initial encounter for closed fracture (2) Fall Encounter type: initial encounter Qualified Code(s): W19.XXXA - Unspecified fall, initial encounter
[2020-02-05] MEDS ORDERED: SODIUM CHLORIDE 0.9% 1000ML 250 ML IV ONE (19:14)
[2020-02-05] MEDS: SODIUM CHLORIDE 0.9% 1000ML 1,000 ML IV SCH (19:21)
[2020-02-05] MEDS: FLUDROCORTISONE ACETATE 0.1 MG TAB PO SCH (20:49)
[2020-02-05] MEDS: ATORVASTATIN 40 MG TAB PO SCH (20:50)
[2020-02-05] MEDS: ARIPiprazole 10 MG TAB PO SCH (20:50)
[2020-02-06] MEDS ORDERED: HYDROmorphone HCL 2 MG TAB PO STA (00:04)
[2020-02-06] MEDS: HYDROmorphone HCL 2 MG TAB PO PRN ×3 (04:54→18:55)
[2020-02-06] MEDS: SUCRALFATE 1 GM/10 ML UDC PO SCH ×4 (07:58→20:30)
[2020-02-06] MEDS: NYSTATIN SUSP 500,000 U/5 ML UDC PO SCH ×4 (07:58→20:29)
[2020-02-06] MEDS: SODIUM CHLORIDE 0.9% 1000ML 1,000 ML IV SCH ×2 (07:59→20:29)
[2020-02-06] MEDS: MIDODRINE HCL 10 MG TAB PO SCH ×3 (07:59→16:49)
[2020-02-06] MEDS: DOCUSATE SODIUM/SENNA 50/8.6MG TAB PO SCH (07:59)
[2020-02-06] MEDS: PROCHLORPERAZINE MALEATE 10 MG TAB PO SCH ×3 (07:59→16:48)
[2020-02-06] MEDS: POLYETHYLENE (MIRALAX) 17 GM PACK PO SCH (08:01)
[2020-02-06] MEDS: MAGNESIUM OXIDE 400 MG TAB PO SCH ×2 (08:01→20:31)
[2020-02-06] MEDS: DULoxetine HCL 60 MG CAP PO SCH (08:01)
[2020-02-06] MEDS: UMECLIDINIUM/VILANTEROL 62.5/25MCG 7 PUFFS/INHALER INH SCH (08:01)
[2020-02-06] MEDS: DOCUSATE SODIUM 100 MG CAP PO SCH ×2 (08:02→20:33)
[2020-02-06] MEDS: MULTIVITAMIN TAB PO SCH (08:02)
[2020-02-06] MEDS: FLUDROCORTISONE ACETATE 0.1 MG TAB PO SCH ×2 (08:02→20:29)
[2020-02-06] MEDS: PANTOprazole 40 MG TAB PO SCH (08:02)
[2020-02-06] MEDS: hydrOXYzine HCl 25 MG TAB PO SCH ×3 (08:03→20:33)
[2020-02-06] MEDS: NICOTINE 14 MG/24 HR PATCH TD SCH (08:03)
[2020-02-06] MEDS: ENOXAPARIN 80 MG/0.8 ML SYR SQ SCH ×2 (12:36→21:34)
--- NOTE | 2020-02-06 13:33 | Communication Note ---
Date of Service: February 06, 2020 Received call from pt's Oncologist -Dr Anibal Hebert pt does not have bone mets , the T11 and ribs fracture is due to osteporsis as per recent scan no bone metastasis noted recommends pt should complete with radiation tx , then to SNF Oncology will follow up for future chemo tx per Dr Hebert -it will be prudent to hold of discussion for Palliative care for now pt needs to finish chemo and monitor for response . Dr Hebert will continue to follow this pt in clinic . Palliative care consult cancelled , Dr Castaneda /Palliative care aware Evy Vargas MD
--- NOTE | 2020-02-06 19:27 | Hospitalist Progress Note ---
Date of Service February 06, 2020 Assessment & Plan (1) Fall: (2) Weakness: (3) Closed fracture of T11 vertebra: HYPOTENSION : Multifactorial, possible adrenal insufficiency, as patient received multiple doses of steroids in the past during chemo treatment, We will order trial of hydrocortisone 100 mg 3 times daily stress dose Hold Florinef, Continue to monitor 64-year-old female history of small cell lung cancer, on chemo and radiation therapy, pancytopenia, intractable nausea vomiting, recent acute CVA, currently being treated for right upper extremity DVT, COPD, other plans are below presenting with weakness and fall. Generalized weakness, status post fall, presyncope Likely secondary to deconditioning Rule out orthostasis -- CT head no acute process CT abdomen pelvis thoracic compression fracture T11 CT lumbar spine no acute fracture CT of thoracic spine: Shows superior endplate compression fracture at T11 currently back pain appears to be reasonably well controlled T11 compression fracture Status post mechanical fall --Appreciate input from spinal orthopedics Dr. Puente -Conservative management recommended, patient refused to have TLSO brace Refer PT OT, patient will benefit with short-term rehab Small cell lung cancer, undergoing chemotherapy and radiation therapy -receieved radiation tx today -- Continue scheduled Compazine, Protonix, sucralfate, bowel regimen -- Right upper extremity DVT, recent diagnosis -- Continue therapeutic Lovenox 90 mg subcu every 12 hours Acute CVA --Recent diagnosis --Aspirin and Plavix recently discontinued in light of patient's initiation of Lovenox for DVT --Continue Lipitor Hypokalemia -- Replace with p.o. potassium Low magnesium: Replaced COPD Sign of exacerbation Continue Anoro DVT prophylaxis on Lovenox therapeutic dose Full code as per patient Disposition PT and OT evaluation Benefit with skilled rehab-referral made to [facility] Care Plan of care discussed in detail with patient and her present at bedside All questions were answered She is understanding, agreeable, comfortable with the plan of care Admission and Anticipated Discharge Date Admission Date: February 03, 2020 Subjective Worse no new complaint, back pain is tolerable, remains hypotensive and systolic blood pressure low 80s without any symptoms No fever or chills, No cough or shortness of breath Physical Exam Constitutional: + ill appearing; no acute distress Eyes: PERRL, conjunctivae normal, anicteric sclerae ENMT: external ear and nose normal, oropharynx normal Neck: trachea midline, no thyromegaly Respiratory: normal respiratory effort; no respiratory distress and no cough Cardiovascular: RRR, no murmur, no edema Gastrointestinal (Abdomen): Percussion/Palpation: abdomen soft; abdomen nontender Skin: no rashes, warm and dry Neurologic: PERRL, EOMI, accommodation nl, no face palsy, no dysarthria Psychiatric: A+Ox3, euthymic affect Results & Data Results & Data ([facility]) Vital Signs (Past 12 Hours) Vital Signs Temp Pulse Resp BP Pulse Ox 02/06/20 15:59 36.5 C 97 H 16 86/59 L 91 02/06/20 07:32 36.6 C 86 18 77/55 L 97 (1) Fall Encounter type: initial encounter Qualified Code(s): W19.XXXA - Unspecified fall, initial encounter (2) Closed fracture of T11 vertebra Encounter type: initial encounter Fracture morphology: unspecified fracture morphology Qualified Code(s): S22.089A - Unspecified fracture of T11-T12 vertebra, initial encounter for closed fracture
[2020-02-06] MEDS: ATORVASTATIN 40 MG TAB PO SCH (20:30)
[2020-02-06] MEDS: ARIPiprazole 10 MG TAB PO SCH (20:30)
[2020-02-07] MEDS: HYDROmorphone HCL 2 MG TAB PO PRN ×3 (01:29→14:44)
[2020-02-07] MEDS: SODIUM CHLORIDE 0.9% 1000ML 1,000 ML IV SCH (08:26)
[2020-02-07] MEDS: SUCRALFATE 1 GM/10 ML UDC PO SCH ×4 (08:32→20:46)
[2020-02-07] MEDS: PANTOprazole 40 MG TAB PO SCH (08:33)
[2020-02-07] MEDS: MAGNESIUM OXIDE 400 MG TAB PO SCH ×2 (08:33→20:46)
[2020-02-07] MEDS: PROCHLORPERAZINE MALEATE 10 MG TAB PO SCH ×3 (08:33→16:04)
[2020-02-07] MEDS: MULTIVITAMIN TAB PO SCH (08:34)
[2020-02-07] MEDS: UMECLIDINIUM/VILANTEROL 62.5/25MCG 7 PUFFS/INHALER INH SCH (08:35)
[2020-02-07] MEDS: MIDODRINE HCL 10 MG TAB PO SCH ×3 (08:35→16:05)
[2020-02-07] MEDS: FLUDROCORTISONE ACETATE 0.1 MG TAB PO SCH (08:35)
[2020-02-07] MEDS: NYSTATIN SUSP 500,000 U/5 ML UDC PO SCH ×4 (08:36→20:44)
[2020-02-07] MEDS: POLYETHYLENE (MIRALAX) 17 GM PACK PO SCH (08:37)
[2020-02-07] MEDS: NICOTINE 14 MG/24 HR PATCH TD SCH (08:37)
[2020-02-07] MEDS: DOCUSATE SODIUM/SENNA 50/8.6MG TAB PO SCH (08:38)
[2020-02-07] MEDS: ENOXAPARIN 80 MG/0.8 ML SYR SQ SCH ×2 (08:38→20:46)
[2020-02-07] MEDS: DOCUSATE SODIUM 100 MG CAP PO SCH ×2 (08:40→20:51)
[2020-02-07] MEDS: hydrOXYzine HCl 25 MG TAB PO SCH ×3 (08:42→20:50)
[2020-02-07] MEDS: DULoxetine HCL 60 MG CAP PO SCH (09:54)
[2020-02-07] MEDS: HEPARIN 100 UNIT/ML 5ML FLUSH FLUSH PRN ×2 (15:04→18:51)
--- NOTE | 2020-02-07 18:06 | Hospitalist Progress Note ---
Date of Service February 07, 2020 Assessment & Plan (1) Fall: (2) Weakness: (3) Closed fracture of T11 vertebra: Right upper extremity DVT, recent diagnosis -- on therapeutic Lovenox 90 mg subcu every 12 hours for recently diagnosed DVT on rt arm ( 01/24/20 ) today worsening of swelling and pain noted on rt arm no evidence of cellulitis repeat USG ordered HYPOTENSION : Multifactorial, possible adrenal insufficiency, as patient received multiple doses of steroids in the past during chemo treatment, We will order trial of hydrocortisone 100 mg 3 times daily stress dose Hold Florinef, Continue to monitor 64-year-old female history of small cell lung cancer, on chemo and radiation therapy, pancytopenia, intractable nausea vomiting, recent acute CVA, currently being treated for right upper extremity DVT, COPD, other plans are below presenting with weakness and fall. Generalized weakness, status post fall, presyncope Likely secondary to deconditioning Rule out orthostasis -- CT head no acute process CT abdomen pelvis thoracic compression fracture T11 CT lumbar spine no acute fracture CT of thoracic spine: Shows superior endplate compression fracture at T11 currently back pain appears to be reasonably well controlled T11 compression fracture Status post mechanical fall --Appreciate input from spinal orthopedics Dr. Puente -Conservative management recommended, patient refused to have TLSO brace Refer PT OT, patient will benefit with short-term rehab Small cell lung cancer, undergoing chemotherapy and radiation therapy -receieved radiation tx today -- Continue scheduled Compazine, Protonix, sucralfate, bowel regimen -- Acute CVA --Recent diagnosis --Aspirin and Plavix recently discontinued in light of patient's initiation of Lovenox for DVT --Continue Lipitor Hypokalemia -- Replace with p.o. potassium Low magnesium: Replaced COPD Sign of exacerbation Continue Anoro DVT prophylaxis on Lovenox therapeutic dose Full code as per patient Disposition PT and OT evaluation Benefit with skilled rehab-referral made to [facility] Plan of care discussed in detail with patient and her present at bedside All questions were answered She is understanding, agreeable, comfortable with the plan of care Admission and Anticipated Discharge Date Admission Date: February 03, 2020 Subjective right upper arm swelling worsened to day non tender no fever or chills back pain tolerable Review of Systems Review of Systems: All systems reviewed & are unremarkable except as noted in HPI & below Physical Exam Constitutional: + ill appearing; no acute distress Eyes: PERRL, conjunctivae normal, anicteric sclerae ENMT: external ear and nose normal, oropharynx normal Neck: trachea midline, no thyromegaly Respiratory: normal respiratory effort; no respiratory distress and no cough Cardiovascular: RRR, no murmur, no edema Gastrointestinal (Abdomen): Percussion/Palpation: abdomen soft; abdomen nontender Musculoskeletal: Extremities: + upper extremity abnormal to inspection (significant edema from axialla to mid arm ) Right Skin: no rashes, warm and dry Neurologic: PERRL, EOMI, accommodation nl, no face palsy, no dysarthria Psychiatric: A+Ox3, euthymic affect Results & Data Results & Data ([facility]) Vital Signs (Past 12 Hours) Vital Signs Temp Pulse Resp BP Pulse Ox 02/07/20 14:53 36.7 C 93 H 18 78/59 L 92 02/07/20 07:21 36.7 C 93 H 20 74/58 L 91 (1) Closed fracture of T11 vertebra Encounter type: initial encounter Fracture morphology: unspecified fracture morphology Qualified Code(s): S22.089A - Unspecified fracture of T11-T12 vertebra, initial encounter for closed fracture (2) Fall Encounter type: initial encounter Qualified Code(s): W19.XXXA - Unspecified fall, initial encounter
[2020-02-07] MEDS ORDERED: HYDROmorphone INJ 1 MG/ML SYRINGE IV STA (18:43)
--- NOTE | 2020-02-07 19:33 | Ultrasound Report ---
ULTRASOUND RIGHT UPPER EXTREMITY VENOUS CLINICAL HISTORY: Right arm swelling. Deep venous thrombosis. COMPARISON STUDY: Right upper extremity venous ultrasound dated 01/24/2020. TECHNIQUE: Real-time, grayscale, and color Doppler sonography of the deep veins of the right upper ex tremity is performed. Compression and augmentation were utilized. FINDINGS: Occlusive deep venous thrombosis is again seen in the right internal jugular vein around th e central venous infusion port catheter. Nearly occlusive deep venous thrombosis is identified within the axillary vein. The subclavian vein could not be assessed due to overlying bandaging. The brachia l veins appear clear the basilic and cephalic veins are patent. The visualized radial and ulnar veins are patent. IMPRESSION: 1. Occlusive deep venous thrombosis is again seen in the right internal jugular vein around a central venous catheter. 2. Nearly occlusive deep venous thrombosis is present within the axillary vein. ACT 112: Negative or not required by law. Electronically signed by: Cruz Nj M.D. 02/07/2020 7:32 PM
[2020-02-07] MEDS: HYDROCORTISONE SOD 100 MG in SYRINGE 0 ML IV SCH (20:40)
[2020-02-07] MEDS: ARIPiprazole 10 MG TAB PO SCH (20:44)
[2020-02-07] MEDS: ATORVASTATIN 40 MG TAB PO SCH (20:45)
[2020-02-07] MEDS: ONDANSETRON 4 MG OD TAB PO PRN (22:42)
[2020-02-08] MEDS: HYDROmorphone HCL 2 MG TAB PO PRN ×4 (00:50→19:36)
[2020-02-08] MEDS: MIDODRINE HCL 10 MG TAB PO SCH ×3 (07:39→16:05)
[2020-02-08] MEDS: UMECLIDINIUM/VILANTEROL 62.5/25MCG 7 PUFFS/INHALER INH SCH (07:40)
[2020-02-08] MEDS: SUCRALFATE 1 GM/10 ML UDC PO SCH ×4 (07:40→20:33)
[2020-02-08] MEDS: PROCHLORPERAZINE MALEATE 10 MG TAB PO SCH ×3 (07:40→16:05)
[2020-02-08] MEDS: MULTIVITAMIN TAB PO SCH (07:41)
[2020-02-08] MEDS: NICOTINE 14 MG/24 HR PATCH TD SCH (07:41)
[2020-02-08] MEDS: PANTOprazole 40 MG TAB PO SCH (07:41)
[2020-02-08] MEDS: NYSTATIN SUSP 500,000 U/5 ML UDC PO SCH ×4 (07:42→20:32)
[2020-02-08] MEDS: POLYETHYLENE (MIRALAX) 17 GM PACK PO SCH (07:42)
[2020-02-08] MEDS: DULoxetine HCL 60 MG CAP PO SCH (07:42)
[2020-02-08] MEDS: MAGNESIUM OXIDE 400 MG TAB PO SCH ×2 (07:42→20:34)
[2020-02-08] MEDS: hydrOXYzine HCl 25 MG TAB PO SCH ×3 (07:44→19:39)
[2020-02-08] MEDS: HYDROCORTISONE SOD 100 MG in SYRINGE 0 ML IV SCH ×3 (07:45→20:33)
[2020-02-08] MEDS: DOCUSATE SODIUM 100 MG CAP PO SCH ×2 (07:47→20:35)
[2020-02-08] MEDS: HEPARIN 100 UNIT/ML 5ML FLUSH FLUSH PRN (07:47)
[2020-02-08] MEDS: DOCUSATE SODIUM/SENNA 50/8.6MG TAB PO SCH (08:16)
[2020-02-08] MEDS: ENOXAPARIN 80 MG/0.8 ML SYR SQ SCH ×2 (08:45→20:32)
--- NOTE | 2020-02-08 15:44 | Hospitalist Progress Note ---
Date of Service February 08, 2020 Assessment & Plan (1) Fall: (2) Weakness: (3) Closed fracture of T11 vertebra: Right upper extremity DVT, recent diagnosis -- on therapeutic Lovenox 90 mg subcu every 12 hours for recently diagnosed DVT on rt arm ( 01/24/20 ) today worsening of swelling and pain noted on rt arm no evidence of cellulitis repeat USG shows unchanged DVT on rt int Jugular /Axillary zoraida cont on Lovenox pt reports improvement of rt arm swelling after keeping arm elevated HYPOTENSION : BP improved after starting on hydrocortisone 100 mg 3 times daily stress dose Multifactorial, possible adrenal insufficiency, as patient received multiple doses of steroids in the past during chemo treatment, Continue to monitor 64-year-old female history of small cell lung cancer, on chemo and radiation therapy, pancytopenia, intractable nausea vomiting, recent acute CVA, currently being treated for right upper extremity DVT, COPD, other plans are below presenting with weakness and fall. Generalized weakness, status post fall, presyncope Likely secondary to deconditioning Rule out orthostasis -- CT head no acute process CT abdomen pelvis thoracic compression fracture T11 CT lumbar spine no acute fracture CT of thoracic spine: Shows superior endplate compression fracture at T11 currently back pain appears to be reasonably well controlled T11 compression fracture Status post mechanical fall --Appreciate input from spinal orthopedics Dr. Puente -Conservative management recommended, patient refused to have TLSO brace Refer PT OT, patient will benefit with short-term rehab Small cell lung cancer, undergoing chemotherapy and radiation therapy -receieved radiation tx today -- Continue scheduled Compazine, Protonix, sucralfate, bowel regimen -- Acute CVA --Recent diagnosis --Aspirin and Plavix recently discontinued in light of patient's initiation of Lovenox for DVT --Continue Lipitor Hypokalemia -- Replace with p.o. potassium Low magnesium: Replaced COPD Sign of exacerbation Continue Anoro DVT prophylaxis on Lovenox therapeutic dose Full code as per patient Disposition PT and OT evaluation Benefit with skilled rehab-referral made to [facility] Plan of care discussed in detail with patient and her present at bedside All questions were answered She is understanding, agreeable, comfortable with the plan of care Admission and Anticipated Discharge Date Admission Date: February 03, 2020 Subjective right upper arm swelling has improved BP improved after starting on IV steroids pt was able to walk in the room with assistance with no dizzy spell or lightheadedness no fever or chills no nausea or vomiting episode today Physical Exam Constitutional: + ill appearing; no acute distress Eyes: PERRL, conjunctivae normal, anicteric sclerae ENMT: external ear and nose normal, oropharynx normal Neck: trachea midline, no thyromegaly Respiratory: normal respiratory effort; no respiratory distress and no cough Cardiovascular: RRR, no murmur, no edema Gastrointestinal (Abdomen): Percussion/Palpation: abdomen soft; abdomen nontender Musculoskeletal: Extremities: + upper extremity abnormal to inspection (significant edema from axialla to mid arm ) Right Skin: no rashes, warm and dry Neurologic: PERRL, EOMI, accommodation nl, no face palsy, no dysarthria Psychiatric: A+Ox3, euthymic affect Results & Data Results & Data ([facility] [place]) Vital Signs (Past 12 Hours) Vital Signs Temp Pulse Resp BP Pulse Ox 02/08/20 15:08 36.7 C 79 18 99/65 L 91 02/08/20 07:14 36.7 C 106 H 18 88/63 L 91 (1) Closed fracture of T11 vertebra Encounter type: initial encounter Fracture morphology: unspecified fracture morphology Qualified Code(s): S22.089A - Unspecified fracture of T11-T12 vertebra, initial encounter for closed fracture (2) Fall Encounter type: initial encounter Qualified Code(s): W19.XXXA - Unspecified fall, initial encounter
[2020-02-08] MEDS: ATORVASTATIN 40 MG TAB PO SCH (20:33)
[2020-02-08] MEDS: ARIPiprazole 10 MG TAB PO SCH (20:34)
[2020-02-09] MEDS: SUCRALFATE 1 GM/10 ML UDC PO SCH ×4 (08:17→19:53)
[2020-02-09] MEDS: hydrOXYzine HCl 25 MG TAB PO SCH ×3 (08:17→19:53)
[2020-02-09] MEDS: NICOTINE 14 MG/24 HR PATCH TD SCH (08:19)
[2020-02-09] MEDS: PROCHLORPERAZINE MALEATE 10 MG TAB PO SCH ×3 (08:19→16:04)
[2020-02-09] MEDS: MIDODRINE HCL 10 MG TAB PO SCH ×3 (08:21→16:07)
[2020-02-09] MEDS: ENOXAPARIN 80 MG/0.8 ML SYR SQ SCH ×2 (08:21→20:06)
[2020-02-09] MEDS: HYDROmorphone HCL 2 MG TAB PO PRN ×2 (08:22→14:06)
[2020-02-09] MEDS: PANTOprazole 40 MG TAB PO SCH (08:24)
[2020-02-09] MEDS: HYDROCORTISONE SOD 100 MG in SYRINGE 0 ML IV SCH ×2 (08:24→12:30)
[2020-02-09] MEDS: MULTIVITAMIN TAB PO SCH (08:25)
[2020-02-09] MEDS: NYSTATIN SUSP 500,000 U/5 ML UDC PO SCH ×4 (08:25→19:52)
[2020-02-09] MEDS: POLYETHYLENE (MIRALAX) 17 GM PACK PO SCH (08:27)
[2020-02-09] MEDS: MAGNESIUM OXIDE 400 MG TAB PO SCH ×2 (08:27→19:54)
[2020-02-09] MEDS: UMECLIDINIUM/VILANTEROL 62.5/25MCG 7 PUFFS/INHALER INH SCH (08:28)
[2020-02-09] MEDS: DOCUSATE SODIUM 100 MG CAP PO SCH ×2 (08:28→19:52)
[2020-02-09] MEDS: DULoxetine HCL 60 MG CAP PO SCH (08:28)
[2020-02-09] MEDS: DOCUSATE SODIUM/SENNA 50/8.6MG TAB PO SCH (08:33)
[2020-02-09] MEDS ORDERED: fentaNYL 12 MCG/HR TDSY TD SCH (16:00)
[2020-02-09] MEDS ORDERED: HYDROmorphone INJ 1 MG/ML SYRINGE IV STA (16:13)
--- NOTE | 2020-02-09 18:04 | Hospitalist Progress Note ---
Date of Service February 09, 2020 Assessment & Plan (1) Fall: (2) Weakness: (3) Closed fracture of T11 vertebra: RT arm swelling : possible due to lemphedema , poor venous retrun due to DVT : keep limb elevated , arm and hand sleeves Right upper extremity DVT, recent diagnosis -- on therapeutic Lovenox 90 mg subcu every 12 hours for recently diagnosed DVT on rt arm ( 01/24/20 ) today worsening of swelling and pain noted on rt arm no evidence of cellulitis repeat USG shows unchanged DVT on rt int Jugular /Axillary zoraida cont on Lovenox pt reports improvement of rt arm swelling after keeping arm elevated HYPOTENSION : BP stable now cont hydrocortisone 100 mg 3 times daily will change to PO dose Multifactorial, possible adrenal insufficiency, as patient received multiple doses of steroids in the past during chemo treatment, Continue to monitor 64-year-old female history of small cell lung cancer, on chemo and radiation therapy, pancytopenia, intractable nausea vomiting, recent acute CVA, currently being treated for right upper extremity DVT, COPD, other plans are below presenting with weakness and fall. Generalized weakness, status post fall, presyncope Likely secondary to deconditioning Rule out orthostasis -- CT head no acute process CT abdomen pelvis thoracic compression fracture T11 CT lumbar spine no acute fracture CT of thoracic spine: Shows superior endplate compression fracture at T11 currently back pain appears to be reasonably well controlled T11 compression fracture Status post mechanical fall --Appreciate input from spinal orthopedics Dr. Puente -Conservative management recommended, patient refused to have TLSO brace Refer PT OT, patient will benefit with short-term rehab Small cell lung cancer, undergoing chemotherapy and radiation therapy - -- Continue scheduled Compazine, Protonix, sucralfate, bowel regimen -- Acute CVA --Recent diagnosis --Aspirin and Plavix recently discontinued in light of patient's initiation of Lovenox for DVT --Continue Lipitor Hypokalemia -- Replace with p.o. potassium Low magnesium: Replaced COPD Sign of exacerbation Continue Anoro DVT prophylaxis on Lovenox therapeutic dose Full code as per patient Disposition PT and OT evaluation Benefit with skilled rehab -referral made to [facility] -can go to SNF when bed avaiable Admission and Anticipated Discharge Date Admission Date: February 03, 2020 Subjective was experiencing severe back pain ordered fentanyl patch symptoms improved markely Physical Exam Constitutional: + ill appearing; no acute distress Eyes: PERRL, conjunctivae normal, anicteric sclerae ENMT: external ear and nose normal, oropharynx normal Neck: trachea midline, no thyromegaly Respiratory: normal respiratory effort; no respiratory distress and no cough Cardiovascular: RRR, no murmur, no edema Gastrointestinal (Abdomen): Percussion/Palpation: abdomen soft; abdomen nontender Musculoskeletal: Extremities: + upper extremity abnormal to inspection (signi ficant edema from axialla to mid arm ) Right Skin: no rashes, warm and dry Neurologic: PERRL, EOMI, accommodation nl, no face palsy, no dysarthria Psychiatric: A+Ox3, euthymic affect Results & Data Results & Data ([facility]) Vital Signs (Past 12 Hours) Vital Signs Temp Pulse Resp BP Pulse Ox 02/09/20 15:00 36.8 C 91 H 18 90/63 L 91 02/09/20 07:38 36.7 C 118 H 20 100/71 93 (1) Closed fracture of T11 vertebra Encounter type: initial encounter Fracture morphology: unspecified fracture morphology Qualified Code(s): S22.089A - Unspecified fracture of T11-T12 vertebra, initial encounter for closed fracture (2) Fall Encounter type: initial encounter Qualified Code(s): W19.XXXA - Unspecified fall, initial encounter
[2020-02-09] MEDS: ARIPiprazole 10 MG TAB PO SCH (19:54)
[2020-02-09] MEDS: ATORVASTATIN 40 MG TAB PO SCH (19:55)
[2020-02-09] MEDS: HYDROCORTISONE 10 MG TAB PO SCH (20:06)
[2020-02-10] MEDS: CHECK fentaNYL PATCH PLACEMENT SCH ×4 (03:11→23:33)
[2020-02-10] MEDS: HYDROmorphone HCL 2 MG TAB PO PRN ×5 (03:14→22:09)
[2020-02-10] MEDS: MULTIVITAMIN TAB PO SCH (07:30)
[2020-02-10] MEDS: DULoxetine HCL 60 MG CAP PO SCH (07:30)
[2020-02-10] MEDS: PROCHLORPERAZINE MALEATE 10 MG TAB PO SCH ×3 (07:30→17:19)
[2020-02-10] MEDS: hydrOXYzine HCl 25 MG TAB PO SCH ×3 (07:31→20:16)
[2020-02-10] MEDS: MAGNESIUM OXIDE 400 MG TAB PO SCH ×2 (07:31→20:16)
[2020-02-10] MEDS: MIDODRINE HCL 10 MG TAB PO SCH ×3 (07:33→17:20)
[2020-02-10] MEDS: PANTOprazole 40 MG TAB PO SCH (07:33)
[2020-02-10] MEDS: NICOTINE 14 MG/24 HR PATCH TD SCH (07:33)
[2020-02-10] MEDS: NYSTATIN SUSP 500,000 U/5 ML UDC PO SCH ×4 (07:34→20:16)
[2020-02-10] MEDS: SUCRALFATE 1 GM/10 ML UDC PO SCH ×4 (07:34→20:16)
[2020-02-10] MEDS: HYDROCORTISONE 10 MG TAB PO SCH ×3 (07:34→20:17)
[2020-02-10] MEDS: UMECLIDINIUM/VILANTEROL 62.5/25MCG 7 PUFFS/INHALER INH SCH (07:35)
[2020-02-10] MEDS: ENOXAPARIN 80 MG/0.8 ML SYR SQ SCH ×2 (07:36→22:09)
[2020-02-10] MEDS: DOCUSATE SODIUM/SENNA 50/8.6MG TAB PO SCH (07:36)
[2020-02-10] MEDS: POLYETHYLENE (MIRALAX) 17 GM PACK PO SCH (07:37)
[2020-02-10] MEDS: DOCUSATE SODIUM 100 MG CAP PO SCH ×2 (08:04→20:15)
[2020-02-10] MEDS: fentaNYL 12 MCG/HR TDSY TD SCH (11:40)
[2020-02-10] MEDS: ATORVASTATIN 40 MG TAB PO SCH (20:17)
[2020-02-10] MEDS: ARIPiprazole 10 MG TAB PO SCH (20:17)
[2020-02-11] MEDS: HYDROmorphone HCL 2 MG TAB PO PRN ×4 (03:41→21:06)
[2020-02-11] MEDS ORDERED: HYDROmorphone INJ 0.5 MG/0.5 ML SYR IV STA (06:19)
[2020-02-11] MEDS ORDERED: HYDROmorphone HCL 2 MG TAB PO STA (06:31)
--- NOTE | 2020-02-11 07:48 | Hospitalist Progress Note ---
Date of Service February 11, 2020 Assessment & Plan (1) Fall: (2) Weakness: (3) Closed fracture of T11 vertebra: RT arm swelling : possible due to lemphedema , poor venous retrun due to DVT : keep limb elevated , arm and hand sleeves Right upper extremity DVT, recent diagnosis -- on therapeutic Lovenox 90 mg subcu every 12 hours for recently diagnosed DVT on rt arm ( 01/24/20 ) today worsening of swelling and pain noted on rt arm no evidence of cellulitis repeat USG shows unchanged DVT on rt int Jugular /Axillary zoraida cont on Lovenox pt reports improvement of rt arm swelling after keeping arm elevated HYPOTENSION : BP stable now cont hydrocortisone 100 mg 3 times daily will change to PO dose Multifactorial, possible adrenal insufficiency, as patient received multiple doses of steroids in the past during chemo treatment, Continue to monitor 64-year-old female history of small cell lung cancer, on chemo and radiation therapy, pancytopenia, intractable nausea vomiting, recent acute CVA, currently being treated for right upper extremity DVT, COPD, other plans are below presenting with weakness and fall. Generalized weakness, status post fall, presyncope Likely secondary to deconditioning Rule out orthostasis -- CT head no acute process CT abdomen pelvis thoracic compression fracture T11 CT lumbar spine no acute fracture CT of thoracic spine: Shows superior endplate compression fracture at T11 currently back pain appears to be reasonably well controlled T11 compression fracture Status post mechanical fall --Appreciate input from spinal orthopedics Dr. Puente -Conservative management recommended, patient refused to have TLSO brace Refer PT OT, patient will benefit with short-term rehab Small cell lung cancer, undergoing chemotherapy and radiation therapy - -- Continue scheduled Compazine, Protonix, sucralfate, bowel regimen -- Acute CVA --Recent diagnosis --Aspirin and Plavix recently discontinued in light of patient's initiation of Lovenox for DVT --Continue Lipitor Hypokalemia -- Replace with p.o. potassium Low magnesium: Replaced COPD Sign of exacerbation Continue Anoro DVT prophylaxis on Lovenox therapeutic dose Full code as per patient Disposition PT and OT evaluation Benefit with skilled rehab -referral made -can go to SNF when bed available Pre Transfer COVID 19 test negative Admission and Anticipated Discharge Date Admission Date: February 03, 2020 Subjective LATE ENTRY 02/10/20 back pain is tolerable persistent swelling on rt arm improved after arm elevation , pressure stockings no fever or chills offers no new complain Physical Exam Constitutional: + ill appearing; no acute distress Eyes: PERRL, conjunctivae normal, anicteric sclerae ENMT: external ear and nose normal, oropharynx normal Neck: trachea midline, no thyromegaly Respiratory: normal respiratory effort; no respiratory distress and no cough Cardiovascular: RRR, no murmur, no edema Gastrointestinal (Abdomen): Percussion/Palpation: abdomen soft; abdomen nontender Musculoskeletal: Extremities: + upper extremity abnormal to inspection (significant edema from axialla to mid arm ) Right Skin: no rashes, warm and dry Neurologic: PERRL, EOMI, accommodation nl, no face palsy, no dysarthria Psychiatric: A+Ox3, euthymic affect Results & Data Results & Data ([facility]) Vital Signs (Past 12 Hours) Vital Signs Temp Pulse Resp BP Pulse Ox Pulse Ox 02/11/20 00:35 92 02/10/20 23:37 36.6 C 114 H 20 117/79 92 (1) Closed fracture of T11 vertebra Encounter type: initial encounter Fracture morphology: unspecified fracture morphology Qualified Code(s): S22.089A - Unspecified fracture of T11-T12 vertebra, initial encounter for closed fracture (2) Fall Encounter type: initial encounter Qualified Code(s): W19.XXXA - Unspecified fall, initial encounter
[2020-02-11] MEDS: SUCRALFATE 1 GM/10 ML UDC PO SCH ×4 (08:28→21:07)
[2020-02-11] MEDS: PROCHLORPERAZINE MALEATE 10 MG TAB PO SCH ×3 (08:29→16:38)
[2020-02-11] MEDS: CHECK fentaNYL PATCH PLACEMENT SCH ×3 (08:30→22:51)
[2020-02-11] MEDS: DOCUSATE SODIUM/SENNA 50/8.6MG TAB PO SCH (09:54)
[2020-02-11] MEDS: POLYETHYLENE (MIRALAX) 17 GM PACK PO SCH (09:54)
[2020-02-11] MEDS: DOCUSATE SODIUM 100 MG CAP PO SCH ×2 (09:55→21:07)
[2020-02-11] MEDS: DULoxetine HCL 60 MG CAP PO SCH (09:55)
[2020-02-11] MEDS: MULTIVITAMIN TAB PO SCH (09:55)
[2020-02-11] MEDS: MIDODRINE HCL 10 MG TAB PO SCH ×3 (09:55→16:39)
[2020-02-11] MEDS: PANTOprazole 40 MG TAB PO SCH (09:55)
[2020-02-11] MEDS: MAGNESIUM OXIDE 400 MG TAB PO SCH ×2 (09:55→21:07)
[2020-02-11] MEDS: hydrOXYzine HCl 25 MG TAB PO SCH ×3 (09:55→19:42)
[2020-02-11] MEDS: NICOTINE 14 MG/24 HR PATCH TD SCH (09:56)
[2020-02-11] MEDS: NYSTATIN SUSP 500,000 U/5 ML UDC PO SCH ×4 (09:58→21:07)
[2020-02-11] MEDS: HYDROCORTISONE 10 MG TAB PO SCH ×3 (09:59→21:07)
[2020-02-11] MEDS: ENOXAPARIN 80 MG/0.8 ML SYR SQ SCH ×2 (09:59→21:08)
[2020-02-11] MEDS: UMECLIDINIUM/VILANTEROL 62.5/25MCG 7 PUFFS/INHALER INH SCH (11:24)
[2020-02-11] MEDS: ONDANSETRON 4 MG OD TAB PO PRN (12:48)
--- NOTE | 2020-02-11 20:46 | Hospitalist Progress Note ---
Date of Service February 11, 2020 Assessment & Plan (1) Fall: (2) Weakness: (3) Closed fracture of T11 vertebra: 64-year-old female history of small cell lung cancer, on chemo and radiation therapy, pancytopenia, intractable nausea vomiting, recent acute CVA, currently being treated for right upper extremity DVT, COPD, other plans are below presenting with weakness and fall. Generalized weakness, status post fall, presyncope Likely secondary to secondary to Hypotension, Deconditioning -- CT head no acute process CT abdomen pelvis thoracic compression fracture T11 CT lumbar spine no acute fracture CT of thoracic spine: Shows superior endplate compression fracture at T11 currently back pain appears to be reasonably well controlled -- Hypotension Multifactorial, possible adrenal insufficiency, as patient received multiple doses of steroids in the past during chemo treatment continue hydrocortisone 100 mg 3 times daily, Midodrine -- BP on the lower side resume IV fluids Hypokalemia -- Replace with IV potassium, monitor Low magnesium: Replaced Right upper extremity DVT, recent diagnosis -- on therapeutic Lovenox 90 mg subcu every 12 hours for recently diagnosed DVT on rt arm ( 01/24/20 ) repeat USG shows unchanged DVT on rt int Jugular /Axillary zoraida no cellulitis cont on Lovenox , warm compress, elevation Lower Extremity Edema -- likely from hypoalbuminemia, poor mobility -- elevate legs start Boost T11 compression fracture Status post mechanical fall --Appreciate input from spinal orthopedics Dr. Puente -Conservative management recommended, patient refused to have TLSO brace PT OT, patient will benefit with short-term rehab Small cell lung cancer, undergoing chemotherapy and radiation therapy -- Continue scheduled Compazine, Protonix, sucralfate, bowel regimen Acute CVA --Recent diagnosis --Aspirin and Plavix recently discontinued in light of patient's initiation of Lovenox for DVT --Continue Lipitor COPD Sign of exacerbation Continue Anoro DVT prophylaxis on Lovenox therapeutic dose Full code as per patient Disposition PT and OT evaluation Benefit with skilled rehab -referral made -can go to SNF when bed available Pre Transfer COVID 19 test negative Admission and Anticipated Discharge Date Admission Date: February 03, 2020 Subjective ff up for weakness, hypotension seen resting in bed, not in distress, comfortable then patient had vomiting of previously ingested food also has RUE swelling, no pain no other symptoms Review of Systems Review of Systems: All systems reviewed & are unremarkable except as noted in Subjective Physical Exam Physical Exam: General- oriented x 3, not in distress, speaks in sentences with no effort or accessory muscle use Eyes- anicteric Neck- no JVD Lungs- clear breath sounds bilaterally, no rales/wheezes Heart- normal rate, regular rhythm; no murmurs Abdomen- normal bowel sounds, nondistended, soft, nontender Extremities- no pretibial edema, no calf tenderness (+) RUE edema no erythema/warmth/swelling Neuro- alert, oriented x 3; no gross focal neurologic deficits Skin- warm & dry Results & Data Results & Data ([facility]) Vital Signs (Past 12 Hours) Vital Signs Temp Pulse Pulse Resp BP Pulse Ox 02/11/20 19:44 92 H 112/77 02/11/20 15:31 37.1 C 90 18 84/58 L 91 (1) Closed fracture of T11 vertebra Encounter type: initial encounter Fracture morphology: unspecified fracture morphology Qualified Code(s): S22.089A - Unspecified fracture of T11-T12 ve rtebra, initial encounter for closed fracture (2) Fall Encounter type: initial encounter Qualified Code(s): W19.XXXA - Unspecified fall, initial encounter
[2020-02-11] MEDS: ARIPiprazole 10 MG TAB PO SCH (21:06)
[2020-02-11] MEDS: ATORVASTATIN 40 MG TAB PO SCH (21:07)
[2020-02-12] MEDS: HYDROmorphone HCL 2 MG TAB PO PRN ×5 (03:02→21:48)
[2020-02-12] MEDS: NYSTATIN SUSP 500,000 U/5 ML UDC PO SCH ×4 (07:40→20:37)
[2020-02-12] MEDS: SUCRALFATE 1 GM/10 ML UDC PO SCH ×4 (07:40→20:35)
[2020-02-12] MEDS: DOCUSATE SODIUM 100 MG CAP PO SCH ×2 (07:41→20:36)
[2020-02-12] MEDS: HYDROCORTISONE 10 MG TAB PO SCH ×3 (07:41→20:36)
[2020-02-12] MEDS: MAGNESIUM OXIDE 400 MG TAB PO SCH ×2 (07:41→20:36)
[2020-02-12] MEDS: MULTIVITAMIN TAB PO SCH (07:42)
[2020-02-12] MEDS: PROCHLORPERAZINE MALEATE 10 MG TAB PO SCH ×3 (07:42→16:55)
[2020-02-12] MEDS: POLYETHYLENE (MIRALAX) 17 GM PACK PO SCH (07:42)
[2020-02-12] MEDS: DOCUSATE SODIUM/SENNA 50/8.6MG TAB PO SCH (07:42)
[2020-02-12] MEDS: PANTOprazole 40 MG TAB PO SCH (07:43)
[2020-02-12] MEDS: DULoxetine HCL 60 MG CAP PO SCH (07:43)
[2020-02-12] MEDS: MIDODRINE HCL 10 MG TAB PO SCH ×3 (07:43→16:54)
[2020-02-12] MEDS: NICOTINE 14 MG/24 HR PATCH TD SCH (07:44)
[2020-02-12] MEDS: CHECK fentaNYL PATCH PLACEMENT SCH ×2 (07:47→15:40)
[2020-02-12] MEDS: UMECLIDINIUM/VILANTEROL 62.5/25MCG 7 PUFFS/INHALER INH SCH (07:47)
[2020-02-12] MEDS: hydrOXYzine HCl 25 MG TAB PO SCH ×3 (08:57→19:36)
[2020-02-12] MEDS: ENOXAPARIN 80 MG/0.8 ML SYR SQ SCH ×2 (08:59→20:35)
[2020-02-12] MEDS ORDERED: SODIUM CHLORIDE 0.9% 1000ML 1,000 ML IV SCH (10:00)
[2020-02-12 10:36] LABS: Basophils # (auto) 0.01 K/uL (0-0.2); Basophils % (auto) 0.2 %; Hematocrit (blood only) 25.2 % (37-47); Hemoglobin 7.9 g/dL (12.0-16.0); Immature Granulocytes # (auto) 0.02 K/uL (0.00-0.02); Immature Granulocytes % (auto) 0.4 %; Lymphocytes # (auto) 0.73 K/uL (1.2-3.4); Lymphocytes % (auto) 14.4 %; Mean Corpuscular Hemoglobin 30.6 pg (25-34); Mean Corpuscular Hgb Conc 31.3 g/dL (32-36); Mean Corpuscular Volume 97.7 fL (80-100); Mean Platelet Volume 9.9 fL (7.4-10.4); Monocytes # (auto) 0.45 K/uL (0.11-0.59); Monocytes % (auto) 8.9 %; Neutrophils # (auto) 3.77 K/uL (1.4-6.5); Neutrophils % (auto) 74.1 %; Nucleated RBC # (auto) 0.03 K/uL (0-0); Nucleated RBC % (auto) 0.7 %; Platelet Count 107 K/uL (130-400); RDW Coefficient of Variation 24.8 % (11.5-14.5); RDW Standard Deviation 84.6 fL (36.4-46.3); Red Blood Count 2.58 M/uL (4.2-5.4); White Blood Count 5.08 K/uL (4.8-10.8)
[2020-02-12 10:53] LABS: Anisocytosis Present; Hypochromasia Present
[2020-02-12 11:02] LABS: BUN Creatinine Ratio 6.9 (10-20); Calcium 8.1 mg/dl (8.5-10.1); Creatinine Clr Calc Pharmacy 69.6 ml/min; Est GFR (African American) 83.9; Est GFR (Non-African American) 72.4; Potassium 2.6 mmol/L (3.5-5.1)
[2020-02-12] MEDS: POTASSIUM CHLORIDE / WTR 10 MEQ/100 ML PLCT IV SCH ×6 (13:41→18:47)
[2020-02-12] MEDS: ATORVASTATIN 40 MG TAB PO SCH (20:36)
[2020-02-12] MEDS: ARIPiprazole 10 MG TAB PO SCH (20:37)
[2020-02-12 21:19] LABS: Magnesium 1.9 mg/dl (1.8-2.4); Potassium 3.5 mmol/L (3.5-5.1)
[2020-02-12] MEDS: HEPARIN 100 UNIT/ML 5ML FLUSH FLUSH PRN (22:29)
[2020-02-13] MEDS: CHECK fentaNYL PATCH PLACEMENT SCH ×3 (01:21→16:29)
[2020-02-13] MEDS: HYDROmorphone HCL 2 MG TAB PO PRN ×4 (01:57→18:11)
[2020-02-13] MEDS: HEPARIN 100 UNIT/ML 5ML FLUSH FLUSH PRN ×5 (07:45→19:13)
[2020-02-13] MEDS: SUCRALFATE 1 GM/10 ML UDC PO SCH ×3 (07:49→16:32)
[2020-02-13] MEDS: PROCHLORPERAZINE MALEATE 10 MG TAB PO SCH ×3 (07:49→16:30)
[2020-02-13] MEDS: MIDODRINE HCL 10 MG TAB PO SCH ×3 (07:50→16:31)
[2020-02-13] MEDS: UMECLIDINIUM/VILANTEROL 62.5/25MCG 7 PUFFS/INHALER INH SCH (07:50)
[2020-02-13] MEDS: DOCUSATE SODIUM 100 MG CAP PO SCH (07:51)
[2020-02-13] MEDS: DULoxetine HCL 60 MG CAP PO SCH (07:52)
[2020-02-13] MEDS: POLYETHYLENE (MIRALAX) 17 GM PACK PO SCH (07:53)
[2020-02-13] MEDS: MAGNESIUM OXIDE 400 MG TAB PO SCH (07:53)
[2020-02-13] MEDS: MULTIVITAMIN TAB PO SCH (07:53)
[2020-02-13] MEDS: NICOTINE 14 MG/24 HR PATCH TD SCH (07:54)
[2020-02-13] MEDS: NYSTATIN SUSP 500,000 U/5 ML UDC PO SCH ×3 (07:54→16:31)
[2020-02-13] MEDS: PANTOprazole 40 MG TAB PO SCH (07:55)
[2020-02-13] MEDS: DOCUSATE SODIUM/SENNA 50/8.6MG TAB PO SCH (07:56)
[2020-02-13] MEDS: hydrOXYzine HCl 25 MG TAB PO SCH ×2 (07:57→11:43)
[2020-02-13 09:18] LABS: Basophils # (auto) 0.01 K/uL (0-0.2); Basophils % (auto) 0.2 %; Eosinophils # (auto) 0.15 K/uL (0-0.5); Eosinophils % (auto) 3.5 %; Hematocrit (blood only) 27.3 % (37-47); Hemoglobin 8.5 g/dL (12.0-16.0); Immature Granulocytes # (auto) 0.01 K/uL (0.00-0.02); Immature Granulocytes % (auto) 0.2 %; Lymphocytes # (auto) 0.62 K/uL (1.2-3.4); Lymphocytes % (auto) 14.5 %; Mean Corpuscular Hemoglobin 30.7 pg (25-34); Mean Corpuscular Hgb Conc 31.1 g/dL (32-36); Mean Corpuscular Volume 98.6 fL (80-100); Mean Platelet Volume 9.5 fL (7.4-10.4); Monocytes # (auto) 0.65 K/uL (0.11-0.59); Monocytes % (auto) 15.2 %; Neutrophils # (auto) 2.84 K/uL (1.4-6.5); Neutrophils % (auto) 66.4 %; Platelet Count 111 K/uL (130-400); Red Blood Count 2.77 M/uL (4.2-5.4); White Blood Count 4.28 K/uL (4.8-10.8)
[2020-02-13 09:43] LABS: BUN Creatinine Ratio 6.5 (10-20); Calcium 8.4 mg/dl (8.5-10.1); Creatinine Clr Calc Pharmacy 78.9 ml/min; Est GFR (African American) 97.6; Est GFR (Non-African American) 84.2
[2020-02-13 09:46] LABS: Anisocytosis Present; Polychromasia 1+
[2020-02-13] MEDS: fentaNYL 12 MCG/HR TDSY TD SCH (10:44)
[2020-02-13] MEDS: ENOXAPARIN 80 MG/0.8 ML SYR SQ SCH (11:41)
[2020-02-13] MEDS: HYDROCORTISONE 10 MG TAB PO SCH ×2 (11:41→15:05)
--- NOTE | 2020-02-13 14:04 | Hospitalist Progress Note ---
Date of Service February 13, 2020 Assessment & Plan (1) Fall: (2) Weakness: (3) Closed fracture of T11 vertebra: 64-year-old female history of small cell lung cancer, on chemo and radiation therapy, pancytopenia, intractable nausea vomiting, recent acute CVA, currently being treated for right upper extremity DVT, COPD, other plans are below presenting with weakness and fall. Generalized weakness, status post fall, presyncope Likely secondary to secondary to Hypotension, Deconditioning -- CT head no acute process CT abdomen pelvis thoracic compression fracture T11 CT lumbar spine no acute fracture CT of thoracic spine: Shows superior endplate compression fracture at T11 currently back pain appears to be reasonably well controlled -- Hypotension Multifactorial, possible adrenal insufficiency, as patient received multiple doses of steroids in the past during chemo treatment started on hydrocortisone 100 mg 3 times daily, Midodrine 10mg TID -- systolic BPs 90s, asymptomatic monitor BP closely taper Hydrocortisone, Midodrine accordingly Fall precautions please Hypokalemia -- K 3.0 likely from poor oral intake, episodes of vomiting -- Replaced with IV potassium -- repeat K and Mg tomorrow 02/14/20 then regularly Right upper extremity DVT, recent diagnosis -- on therapeutic Lovenox subcu every 12 hours for recently diagnosed DVT on rt arm ( 01/24/20 ) repeat USG shows unchanged DVT on rt int Jugular /Axillary zoraida no cellulitis --cont on Lovenox , warm compress, elevation Lower Extremity Edema -- likely from hypoalbuminemia, poor mobility -- elevate legs continue Boost T11 compression fracture Status post mechanical fall --Appreciate input from spinal orthopedics Dr. Puente -Conservative management recommended, patient refused to have TLSO brace PT OT, patient will benefit with short-term rehab Small cell lung cancer, undergoing chemotherapy and radiation therapy -- Continue scheduled Compazine, Protonix, sucralfate, bowel regimen -- follow up with Dr. Anibal Hebert Oncologist Acute CVA --Recent diagnosis 01/26 --Aspirin and Plavix recently discontinued in light of patient's initiation of Lovenox for DVT (needs to resume Aspirin and Plavix if Lovenox discontinued in the future) --Continue Lipitor COPD no Signs of exacerbation Continue Anoro DVT prophylaxis on Lovenox therapeutic dose Full code as per patient Disposition transfer to [facility] Pre Transfer COVID 19 test negative ff up with PCP, Oncologist after d/c from Rehab Facility Admission and Anticipated Discharge Date Admission Date: February 03, 2020 Subjective ff up for weakness, hypotension seen resting in bed, comfortable in good spirits states she feels fine overall no nausea, abdominal pain no dizziness, weakness ambulates in the room with no problems no other problems states she is ready for discharge to Rehab today Review of Systems Review of Systems: All systems reviewed & are unremarkable except as noted in Subjective Physical Exam Physical Exam: General- oriented x 2, not in distress, speaks in sentences with no effort or accessory muscle use Eyes- anicteric Neck- no JVD Lungs- clear BS BL Heart- normal rate, regular rhythm; no murmurs Abdomen- normal bowel sounds, nondistended, soft, nontender Extremities-mild lower extremity edema: no warmth, tenderness, erythema; pretibial edema, no calf tenderness Neuro- alert, oriented x 3; no gross focal neurologic deficits Skin- warm & drypef Results & Data Results & Data ([facility]) Vital Signs (Past 12 Hours) Vital Signs Temp Pulse Resp BP Pulse Ox 02/13/20 07:40 36.5 C 108 H 18 90/65 L 91 Laboratory Results Laboratory Results - last 24 hr 02/12/20 02/13/20 02/13/20 20:26 09:04 09:04 WBC 4.28 L RBC 2.77 L Hgb 8.5 L Hct 27.3 L MCV 98.6 MCH 30.7 MCHC 31.1 L Plt Count 111 L MPV 9.5 Immature Gran % (Auto) 0.2 Neut % (Auto) 66.4 Lymph % (Auto) 14.5 Barnes % (Auto) 15.2 Eos % (Auto) 3.5 Baso % (Auto) 0.2 Neut # (Auto) 2.84 Lymph # (Auto) 0.62 L Barnes # (Auto) 0.65 H Eos # (Auto) 0.15 Baso # (Auto) 0.01 Immature Gran # (Auto) 0.01 Polychromasia 1+ Anisocytosis Present Sodium 144 Potassium 3.5 D 3.0 L Chloride 106 Carbon Dioxide 32 Anion Gap 6.0 BUN 5 L Creatinine 0.75 Est Cr Clr Drug Dosing 78.9 Est GFR ( Amer) 97.6 Est GFR (Non-Af Amer) 84.2 BUN/Creatinine Ratio 6.5 L Glucose 92 Calcium 8.4 L Magnesium 1.9 2.0 (1) Fall Encounter type: initial encounter Qualified Code(s): W19.XXXA - Unspecified fall, initial encounter (2) Closed fracture of T11 vertebra Encounter type: initial encounter Fracture morphology: unspecified fracture morphology Qualified Code(s): S22.089A - Unspecified fracture of T11-T12 vertebra, initial encounter for closed fracture
--- NOTE | 2020-02-13 14:22 | Discharge Summary ---
Date of Service February 13, 2020 Admission HPI Per Admitting Provider 64-year-old female history of small cell lung cancer, on chemo and radiation therapy, pancytopenia, intractable nausea vomiting, recent acute CVA, currently being treated for right upper extremity DVT, COPD, other plans are below presenting with weakness and fall. Patient was recently admitted to [facility] and was discharged January 29, 2020 after being admitted for intractable nausea and vomiting and was found to have right upper extremity DVT. Patient was discharged on Lovenox 90 mg every 12 hours. At home, the patient states that he was she was initially doing fine until yesterday when she started to feel generally weak again. She reports that her appetite has been good so far. She takes Dilaudid orally 2 times per day for pain over the right chest wall area related to radiation. This morning, patient was standing in her living room when she started to feel weak and her legs felt weak and gave out, causing her to fall backwards. She hit her lower back on a piece of furniture and slid down the floor. Patient denies hitting her head or any other part of her body during the fall. Patient was too weak to get up but fortunately home health service staff was present to help her. EMT was called. At the ER, patient was received with blood pressure of 112/82, heart rate 112, respiratory 22, saturating 97% room air, temperature 37.3. CT head: No acute process CT abdomen pelvis: 1. No acute intra-abdominal or intrapelvic abnormality. 2. Acute 20% superior endplate compression deformity of T11 with mild paravertebral edema and no retropulsion. CT lumbar spine: IMPRESSION: No acute fracture or subluxation. Patient was given IV NSS and IV morphine at the ER On exam, patient seen resting in bed, sitting up, not in distress, awake alert oriented x3. Reports feeling weak overall and mild low back pain. Admission Exam Per Admitting Provider General- oriented x 3, not in distress, speaks in sentences with no effort or accessory muscle use Head- atraumatic Eyes- PERRL, EOMI, anicteric ENT- oropharynx clear Neck- supple, no JVD, no adenopathy, no thyromegaly; carotids +2/2, no bruits appreciated Lungs- clear to auscultation bilaterally, no rales/wheezes Heart- Mild tachycardia, regular rhythm; no murmur, no gallop, no rub appreciated Abdomen- normal bowel sounds, nondistended, soft, nontender, no masses or hepatosplenomegaly Extremities- Mild bilateral lower leg edema, no calf tenderness; peripheral pulses intact Mild right upper extremity edema Neuro- alert, oriented x 3; CN 2-12 grossly intact; motor 5/5 bilaterally;sensation 100% on all extremities; no other gross focal neurologic deficits Skin- warm & dry Principal Diagnosis WEAKNESS, HYPOTENSION, S/P FALL, THORACIC COMPRESSION FRACTURE Discharge Exam General- oriented x 2, not in distress, speaks in sentences with no effort or accessory muscle use Eyes- anicteric Neck- no JVD Lungs- clear BS BL Heart- normal rate, regular rhythm; no murmurs Abdomen- normal bowel sounds, nondistended, soft, nontender Extremities-mild lower extremity edema: no warmth, tenderness, erythema; pretibial edema, no calf tenderness Neuro- alert, oriented x 3; no gross focal neurologic deficits Skin- warm & drypef Discharge Data Allergies Allergy/AdvReac Type Severity Reaction Status Date / Time mushroom Allergy Severe anaphylaxis Verified 02/03/20 16:48 Penicillins Allergy Severe anaphylaxis, Verified 02/03/20 16:48 facial & throat swelling acetazolamide Allergy Intermediate rash, hives Verified 02/03/20 16:48 mold Allergy Unknown unknown Verified 02/03/20 16:48 reaction sumatriptan AdvReac Intermediate flushing, Verified 02/03/20 16:48 heart racing Consultations 02/03/20 17:49 ED Decision to Admit Stat 02/03/20 20:03 Consult Orthopedic Surgery Routine Ordered Studies 02/03/20 15:07 CT abd pelvis IV con only Stat FINDINGS: Mild dependent subsegmental bibasilar atelectasis. There is no pneumatosis or pneumoperitoneum. The imaged inferior cardiac chambers are unremarkable. The spleen, adrenal glands, gallbladder and liver are unremarkable. Patency of the hepatic and portal veins. Mild to moderate generalized pancreatic atrophy. Kidneys, ureters, urinary bladder and uterus are unremarkable. Plaque of the abdominal aorta with mild distal ectasia, 2.4 cm. There is no adenopathy. Mild nonspecific distal esophageal wall thickening with tiny hiatal hernia. No bowel obstruction or bowel wall thickening. Normal appendix. There is a 20% superior endplate compression deformity at T11 which demonstrate mild paravertebral edema without retropulsion, significant central canal or foraminal narrowing, new from 12/23/2019. Bones otherwise appear unremarkable and intact. IMPRESSION: 1. No acute intra-abdominal or intrapelvic abnormality. 2. Acute 20% superior endplate compression deformity of T11 with mild paravertebral edema and no retropulsion. 3. Additional findings as above. CT head/brain wo con Stat FINDINGS: No acute intracranial hemorrhage, midline shift, intracranial mass, hydrocephalus, territorial ischemia or abnormal extra-axial collection. Mild age-related involutional changes. Cerebral vascular calcifications. The calvarium is intact. Trace left mastoid effusion. The right mastoid air cells are clear. Partially imaged polypoid mucosal thickening of the left maxillary sinus. The soft tissues and orbits are unremarkable. IMPRESSION: No acute intracranial abnormality or calvarial fracture. CT lumbar spine wo con Stat FINDINGS: Moderate to severe multilevel facet arthrosis. Demineralized appearance of the bones. Mild to moderate disc space narrowing with vacuum disc phenomena and spondylitic spurring at L1-L2. The imaged sacrum and iliac bones appear intact. Moderate degeneration of the SI joints. No suspicious bone lesions. No acute fracture or subluxation. No paravertebral edema. Mild central canal stenosis at L3-L4 secondary to silverware cleaner ior annular disc bulge with ligamentum flavum thickening and facet arthrosis. Additionally, there is suggestion of mild left-sided foraminal narrowing. IMPRESSION: No acute fracture or subluxation. 02/04/20 11:34 CT thoracic spine wo con Routine FINDINGS: There is pulmonary emphysema. There is mild nonspecific esophageal wall thickening. There is a small hiatal hernia. No paraspinal masses are visualized. There is a superior endplate T11 compression deformity demonstrating 15% loss in height. IMPRESSION: 1. Superior endplate T11 compression deformities demonstrating 50% loss in height. No retropulsion. 02/07/20 14:56 US venous doppler UE RT Routine FINDINGS: Occlusive deep venous thrombosis is again seen in the right internal jugular vein around the central venous infusion port catheter. Nearly occlusive deep venous thrombosis is identified within the axillary vein. The subclavian vein could not be assessed due to overlying bandaging. The brachial veins appear clear the basilic and cephalic veins are patent. The visualized radial and ulnar veins are patent. IMPRESSION: 1. Occlusive deep venous thrombosis is again seen in the right internal jugular vein around a central venous catheter. 2. Nearly occlusive deep venous thrombosis is present within the axillary vein. Hospital Course (1) Fall: (2) Weakness: (3) Closed fracture of T11 vertebra: 64-year-old female history of small cell lung cancer, on chemo and radiation therapy, pancytopenia, intractable nausea vomiting, recent acute CVA, currently being treated for right upper extremity DVT, COPD, other plans are below presenting with weakness and fall. Generalized weakness, status post fall, presyncope Likely secondary to secondary to Hypotension, Deconditioning -- CT head no acute process CT abdomen pelvis thoracic compression fracture T11 CT lumbar spine no acute fracture CT of thoracic spine: Shows superior endplate compression fracture at T11 currently back pain appears to be reasonably well controlled -- Hypotension Multifactorial, possible adrenal insufficiency, as patient received multiple doses of steroids in the past during chemo treatment started on hydrocortisone 100 mg 3 times daily, Midodrine 10mg TID -- systolic BPs 90s, asymptomatic monitor BP closely taper Hydrocortisone, Midodrine accordingly Fall precautions please Hypokalemia, -magnesemia -- K 3.0 likely from poor oral intake, episodes of vomiting -- Replaced with IV potassium: cannot tolerate PO potassium -- repeat K and Mg tomorrow 02/14/20 then regularly Right upper extremity DVT, recent diagnosis -- on therapeutic Lovenox subcu every 12 hours for recently diagnosed DVT on rt arm ( 01/24/20 ) repeat USG shows unchanged DVT on rt int Jugular /Axillary zoraida no cellulitis --cont on Lovenox , warm compress, elevation Lower Extremity Edema -- likely from hypoalbuminemia, poor mobility -- elevate legs continue Boost T11 compression fracture Status post mechanical fall --Appreciate input from spinal orthopedics Dr. Puente -Conservative management recommended, patient refused to have TLSO brace PT OT, patient will benefit with short-term rehab Small cell lung cancer, undergoing chemotherapy and radiation therapy -- Continue scheduled Compazine, Protonix, sucralfate, bowel regimen -- follow up with Dr. Anibal Hebert Oncologist Acute CVA --Recent diagnosis 01/26 --Aspirin and Plavix recently discontinued in light of patient's initiation of Lovenox for DVT (needs to resume Aspirin and Plavix if Lovenox discontinued in the future) --Continue Lipitor COPD no Signs of exacerbation Continue Anoro DVT prophylaxis on Lovenox therapeutic dose Full code as per patient Disposition transfer to [facility] Pre Transfer COVID 19 test negative ff up with PCP, Oncologist after d/c from Rehab Facility Total Time Total Time Spent Total Time Spent (In Minutes): 55 minutes Discharge Plan Discharge Items Patient Disposition: Transfer Inpatient Rehab Fac Reason For Visit: S/P FALL, THORACIC COMPRESSION FRACTURE Discharge Diagnosis: WEAKNESS, HYPOTENSION, S/P FALL, THORACIC COMPRESSION FRACTURE Activity: As commented below Activity Comment: CONTINUE PT/OT, FALL PRECAUTIONS PLEASE Lifting: Wait until after follow-up appointment Exercise/Sports: Wait until after follow-up appointment Driving/Machine Use: NO DRIVING Non-emergency contact: Primary Care Provider Call non-emergency contact if: you have any medication questions, your symptoms worsen, your pain is not controlled, your pain is worsening, your pain is unusual for you, your pain is concerning for you and you have a fever Follow-up/Referrals: Rosa Crooks DO [Primary Care Provider] - Anibal Hebert MD [Surgeon] - Diet: Heart Healthy Addtl Attending Provider Instructions: PLEASE REFER TO ACCOMPANYING HOSPITAL DISCHARGE SUMMARY FOR FULL DETAILS. Pending Studies at Discharge: Yes Studies:: REPEAT POTASSIUM AND MAGNESIUM TOMORROW 02/14/20, THEN REGULARLY (HYPO- K AND MG) Stand-Alone Forms: My [facility] Skilled Items Patient informed of condition?: Yes DNR: No Discharge Level of Care: Acute rehab Communicable Disease: No Discharge Prognosis: Improving Lines: None Urinary Catheter: No Medications and DC Order Prescriptions: New magnesium oxide 400 mg (241.3 mg magnesium) Tablet 400 mg PO BID Qty: 60 RF: 0 midodrine 10 mg Tablet 10 mg PO TID@0800,1200,1700 30 Days RF: 3 fludrocortisone 0.1 mg Tablet 0.1 mg PO BID 30 Days Qty: 60 RF: 0 Continued aripiprazole [Abilify] 10 mg tablet 10 mg PO HS RF: 0 albuterol sulfate 90 mcg/actuation HFA aerosol inhaler 2 puff INH Q6H PRN (Reason: Shortness Of Breath Or Wheezing) Qty: 18 RF: 3 Anoro Ellipta 62.5-25 mcg/actuation blister with device 1 puffs INH DAILY Qty: 60 RF: 3 nicotine 14 mg/24 hr patch 24 hour 1 patch TD DAILY Qty: 28 RF: 2 olanzapine [Zyprexa] 10 mg tablet 10 mg PO UD RF: 0 duloxetine 60 mg capsule,delayed release(DR/EC) 60 mg PO DAILY RF: 0 atorvastatin 40 mg Tablet 40 mg PO HS 30 Days Qty: 30 RF: 0 nystatin 100,000 unit/mL Suspension 10 ml PO QID 30 Days Qty: 400 RF: 3 sucralfate 100 mg/mL Suspension 10 ml PO QID 30 Days Qty: 1200 RF: 0 polyethylene glycol 3350 [Miralax] 17 gram/dose powder 17 g PO DAILY 30 Days Qty: 510 RF: 0 sennosides-docusate sodium [Senokot-S] 8.6-50 mg Tablet 1 tab PO QAM Qty: 0 RF: 0 docusate sodium 100 mg Capsule 100 mg PO BID Qty: 0 RF: 0 enoxaparin 100 mg/mL Syringe 90 mg SC Q12H 30 Days Qty: 54 RF: 3 hydromorphone [Dilaudid] 4 mg tablet 4 mg PO Q6H PRN (Reason: pain) Qty: 30 RF: 0 prochlorperazine maleate [Compazine] 10 mg tablet 10 mg PO TID 30 Days Qty: 90 RF: 3 omeprazole 20 mg capsule,delayed release(DR/EC) 20 mg PO BID 30 Days Qty: 60 RF: 3 pantoprazole [Protonix] [address] for susp in packet 40 mg PO DAILY Qty: 30 RF: 0 multivitamin Tablet 1 tab PO QAM RF: 0 ondansetron HCl [Zofran] 8 mg tablet 8 mg PO Q8 PRN (Reason: Nausea) RF: 0 hydroxyzine HCl 50 mg tablet 50 mg PO UD PRN (Reason: Anxiety) RF: 0 melatonin 5 mg Tablet 5 mg PO HS PRN (Reason: Sleep) RF: 0 Discharge Orders: Discharge Order (Routine); Ordered 02/13/20 Ordered By: Kemal Eduardo Admission Data Admit Date/Time: 02/03/20 18:28 Attending Provider: Kemal Eduardo Admit Provider: Kemal Eduardo Primary Care Provider: Rosa Crooks Other Providers: Alisia Alvarado ; Kemal Eduardo ; Gilberto Puente ; [facility], ; Evy Vargas. ; [facility]
[2020-02-13] MEDS: POTASSIUM CHLORIDE / WTR 10 MEQ/100 ML PLCT IV SCH ×4 (15:00→18:11)
== END 2020-02-13 19:22 | DRG 543 ==
LOC: ED 14:51 → SUATTDRO 18:28 → 2W 18:28 → 3N 02-10 10:15

== ENCOUNTER 2020-05-29 11:10 | Observation (INO) ==
[2020-05-29] MEDS ORDERED: ONDANSETRON INJ 2 MG/ML 2 ML VIAL IV STA (11:24)
[2020-05-29] MEDS ORDERED: SODIUM CHLORIDE 0.9% 1000ML 1,000 ML IV SCH (11:30)
--- NOTE | 2020-05-29 11:36 | Emergency Department Note ---
Impression & Plan Pneumonia, Chest pain, Hypokalemia ED Provider Note NAME: BREN BELTRAN AGE: 64 SEX: F : 1955 ARRIVES VIA: Walk-In INFORMANT: Patient, ED PROVIDER(S): James Andersen DO CHIEF COMPLAINT: Chest pain HPI: The patient is a 64-year-old female who presented to the emergency department for right-sided chest pain. The patient was recently diagnosed with a clot on her indwelling port in her right chest wall that she had for previous small cell carcinoma the lung. She did have a recent CAT scan of the chest abdomen and pelvis which showed some improvement of her overall neoplastic process but did show a clot on the tip of the port. Over the last 48 hours she is noticed right-sided chest pain and difficulty breathing. Her symptoms continue to worsen. She has tried her outpatient pain medication without relief. Symptoms are worsened with exertion. She does not notice any pain when she moves her right arm. She notices no worsening of the swelling in her legs but does have chronic swelling in both lower extremities. She states that she is never had a pulmonary embolism in the past. She denies having any back pain. She states the pain is mostly in her right upper chest. She denies having any nausea vomiting or abdominal pain. She did not see her provider prior to coming to the emergency department today. ROS: See above HPI for pertinent positives & negatives. A total of 10 systems reviewed and were otherwise negative. PAST MEDICAL HISTORY: See Below PAST SURGICAL HISTORY: See Below FAMILY HISTORY: See Below SOCIAL HISTORY: See Below HOME MEDICATIONS: See Below ALLERGIES: See Below VITALS: See Below PHYSICAL EXAMINATION: GENERAL: Patient is awake alert in no acute distress patient is resting comfortably and showing no signs of anxiety EYES: The conjunctivae are clear. The pupils are round and reactive. EARS, NOSE, MOUTH AND THROAT: The nose is without any evidence of any deformity. NECK: The neck is nontender and supple. RESPIRATORY: Diminished breath sounds are noted at the right base. There is no tachypnea or conversational dyspnea. CARDIOVASCULAR: Regular rate and rhythm noted there no murmurs rubs or gallops normal S1 normal S2. GASTROINTESTINAL: The abdomen is soft. Abdomen is nontender. MUSCULOSKELETAL/EXTREMITIES: There is no evidence of gross deformity full range of motion is noted in the hips and shoulders. SKIN: Pedal edema was noted bilaterally. Skin was cool and dry. NEUROLOGIC: Patient is awake alert and oriented x3. MEDICAL DECISION MAKING: The patient is a 64-year-old female who is a history of small cell carcinoma of the lung who presented to the emergency department for difficulty breathing. The patient's had slowly worsening shortness of breath as well as chest pain over the course the last few days. She did have recent chest x-ray and CT of the chest abdomen pelvis to assess the progression of her disease process. At that time she was noted to have a slight area of possible pneumonia. Given the patient's cancer history as well as a history of a clot on her indwelling port I did feel it was possible the patient could have had pulmonary embolism. For this reason CT the chest was obtained. I discussed the patient's laboratory and radiographic studies with her. She was treated with IV potassium replacement as well as IV antibiotics in the emergency department. The area on her CT of the chest does appear to be more consistent with pneumonia. The patient does have a cough with sputum production. I discussed the patient's laboratory and radiographic studies [facility] They have agreed to evaluate the patient in the emergency department for further management and disposition. Triage Nursing notes reviewed. Prior medical records reviewed Vital Signs: reviewed and remarkable for no significant abnormalities Differential diagnosis: Cardiac ischemia, aortic dissection, pulmonary embolism, pneumothorax, pneumonia, pericarditis, myocarditis, esophageal rupture, GERD, cholecystitis, pancreatitis, musculoskeletal, as well as other pathologies. ER treatment provided: See below Diagnostics interpreted by me: ECG: EKG was obtained in the emergency department. My interpretation is normal sinus rhythm at 90 bpm. There is no ectopy. There was no acute ST segment elevations noted. This was compared to a tracing from February 022019. No significant changes were noted. Cardiac Monitoring: An order was placed for continuous cardiac monitoring. The monitor shows a rate of 89 bpm with rhythm. Laboratory studies: As stated above and show below. Imaging studies: See below Consultation(s): I discussed this case with Cruz Santos who [facility]. Past Med/Surg History Medical History (Updated 05/29/20 @ 16:45 by James Andersen DO) Acute kidney injury Acute shoulder pain Now a constant ache - no prescription meds needed Anxiety Chronic venous insufficiency follows with vascular (Dr. Carlson) CKD (chronic kidney disease), stage III COPD with emphysema Dentalgia Depression Hypertension Kidney stones LAD (lymphadenopathy), mediastinal Major depressive disorder, recurrent episode with anxious distress Daughter from OD in 2016 Migraine Nausea & vomiting Neutropenia with fever Nicotine dependence Pancytopenia Polysubstance overdose Hx of 2017 Pulmonary nodule "7 mm RUL nodule, stable 09/25/15 - 09/16/16; repeat 6 mos" Surgical History History of bronchoscopy 10/30/2019 - with EBUS History of cataract surgery 2004 - bilateral History of section 1991 History of colonoscopy unsuccessful (poor bowel prep) History of cystoscopy 2007 - with stent History of dental surgery 02/2019 - Full upper teeth extracted S/P arthroscopy of left knee S/P arthroscopy of right knee Family History Grandmother (Maternal) , Passed in 80's of metastatic cancer (unknown primary) No problems noted. Mother , Passed age 93 of natural causes No problems noted. Father , Passed age 97 of natural causes No problems noted. Brother No problems noted. Daughter , Passed age 24 from Over Dose No problems noted. 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 Feels Safe at Home: Yes Childhood Exposure to Second-Hand Smoke: No caffeine: Yes (2 cups of coffee/day ) during the past year weight has: remained stable Dental Care, Regularly: Yes Assistive Devices: Walker Allergies Allergies Allergy/AdvReac Type Severity Reaction Status Date / Time mushroom Allergy Severe anaphylaxis Verified 05/29/20 11:58 Penicillins Allergy Severe anaphylaxis, Verified 05/29/20 11:58 facial & throat swelling acetazolamide Allergy Intermediate rash, hives Verified 05/29/20 11:58 mold Allergy Unknown unknown Verified 05/29/20 11:58 reaction sumatriptan AdvReac Intermediate flushing, Verified 05/29/20 11:58 heart racing Home Meds Home Medications Medication Instructions Recorded Confirmed duloxetine 60 mg PO QAM 01/03/20 05/29/20 Anoro Ellipta 1 puffs INH QAM 05/29/20 05/29/20 apixaban [Eliquis] 2.5 mg PO BID 05/29/20 05/29/20 atorvastatin 40 mg PO HS 05/29/20 05/29/20 fludrocortisone 0.1 mg PO BID 05/29/20 05/29/20 ondansetron 8 mg PO Q8H PRN 05/29/20 05/29/20 oxycodone 10 mg PO Q6H PRN 05/29/20 05/29/20 Previous Rx's Medication Instructions Recorded albuterol sulfate 90 mcg/actuation 2 puff INH Q6H PRN #18 gm 10/23/19 aerosol inhaler omeprazole 20 mg PO BID 30 Days #60 cap 01/27/20 magnesium oxide 400 mg PO BID #60 tab 02/07/20 Results & Data (ED) Vital Signs Vital Signs - 24 hr 05/29/20 11:16 05/29/20 11:49 05/29/20 12:00 Temperature 36.7 C Temperature Source Temporal Artery Scan Pulse Rate 97 H 87 87 Pulse Rate from SpO2 Sensor 88 Pulse Rhythm Regular Respiratory Rate 20 24 29 H Respiratory Effort / Characteristics Non-Labored Spontaneous Respiratory Depth Normal Normal Blood Pressure 94/53 L 111/81 Blood Pressure Mean 66 91 Blood Pressure Position Sitting Pulse Oximetry 97 93 90 Oxygen Delivery Method Room Air Room Air Sepsis Recent Fever Within 48 Hours No Sepsis New/Unexplained Change in Mental Status No Sepsis Action Taken by Nursing No Action Required 05/29/20 12:03 05/29/20 12:38 05/29/20 12:42 Temperature Temperature Source Pulse Rate 88 77 80 Pulse Rate from SpO2 Sensor 88 78 80 Pulse Rhythm Respiratory Rate 34 H 21 17 Respiratory Effort / Characteristics Respiratory Depth Blood Pressure 134/105 H Blood Pressure Mean 114 Blood Pressure Position Pulse Oximetry 89 L 88 L 100 Oxygen Delivery Method Sepsis Recent Fever Within 48 Hours Sepsis New/Unexplained Change in Mental Status Sepsis Action Taken by Nursing 05/29/20 13:00 05/29/20 13:01 05/29/20 13:30 Temperature Temperature Source Pulse Rate 82 83 80 Pulse Rate from SpO2 Sensor 82 84 81 Pulse Rhythm Respiratory Rate 20 17 18 Respiratory Effort / Characteristics Respiratory Depth Blood Pressure 127/71 115/80 Blood Pressure Mean 89 91 Blood Pressure Position Pulse Oximetry 100 100 100 Oxygen Delivery Method Sepsis Recent Fever Within 48 Hours Sepsis New/Unexplained Change in Mental Status Sepsis Action Taken by Nursing 05/29/20 13:31 05/29/20 14:00 05/29/20 14:01 Temperature Temperature Source Pulse Rate 81 81 80 Pulse Rate from SpO2 Sensor 81 81 81 Pulse Rhythm Respiratory Rate 14 21 26 H Respiratory Effort / Characteristics Respiratory Depth Blood Pressure 123/89 Blood Pressure Mean 100 Blood Pressure Position Pulse Oximetry 100 100 100 Oxygen Delivery Method Sepsis Recent Fever Within 48 Hours Sepsis New/Unexplained Change in Mental Status Sepsis Action Taken by Nursing 05/29/20 14:30 05/29/20 14:31 05/29/20 15:00 Temperature Temperature Source Pulse Rate 85 87 82 Pulse Rate from SpO2 Sensor 85 86 82 Pulse Rhythm Respiratory Rate 24 28 H 18 Respiratory Effort / Characteristics Respiratory Depth Blood Pressure 113/88 121/77 Blood Pressure Mean 96 91 Blood Pressure Position Pulse Oximetry 100 100 100 Oxygen Delivery Method Sepsis Recent Fever Within 48 Hours Sepsis New/Unexplained Change in Mental Status Sepsis Action Taken by Nursing 05/29/20 15:01 05/29/20 15:30 05/29/20 15:31 Temperature Temperature Source Pulse Rate 81 81 78 Pulse Rate from SpO2 Sensor 81 81 78 Pulse Rhythm Respiratory Rate 15 14 22 Respiratory Effort / Characteristics Respiratory Depth Blood Pressure 149/88 H Blood Pressure Mean 108 Blood Pressure Position Pulse Oximetry 100 98 100 Oxygen Delivery Method Sepsis Recent Fever Within 48 Hours Sepsis New/Unexplained Change in Mental Status Sepsis Action Taken by Nursing 05/29/20 16:00 05/29/20 16:01 05/29/20 16:02 Temperature Temperature Source Pulse Rate 82 80 81 Pulse Rate from SpO2 Sensor 82 81 83 Pulse Rhythm Respiratory Rate 24 22 20 Respiratory Effort / Characteristics Respiratory Depth Blood Pressure 124/84 Blood Pressure Mean 97 Blood Pressure Position Pulse Oximetry 100 100 100 Oxygen Delivery Method Sepsis Recent Fever Within 48 Hours Sepsis New/Unexplained Change in Mental Status Sepsis Action Taken by Mcfp Medications Current Medication List: was personally reviewed by me Laboratory Data Attestation: I reviewed the patient's lab results. Result diagrams: 05/29/20 11:35 05/29/20 11:35 Lab Results 05/29/20 05/29/20 05/29/20 Range/Units 11:35 11:35 11:35 WBC 6.05 (4.8-10.8) K/uL RBC 2.86 L (4.2-5.4) M/uL Hgb 10.2 L (12.0-16.0) g/dL Hct 30.4 L (37-47) % MCV 106.3 H (80-100) fL MCH 35.7 H (25-34) pg MCHC 33.6 (32-36) g/dL RDW Std Deviation 61.0 H (36.4-46.3) fL RDW Coeff of Anjelica 15.7 H (11.5-14.5) % Plt Count 134 (130-400) K/uL MPV 10.4 (7.4-10.4) fL Immature Gran % (Auto) 0.0 % Neut % (Auto) 77.8 % Lymph % (Auto) 10.4 % [place] % (Auto) 11.1 % Eos % (Auto) 0.5 % Baso % (Auto) 0.2 % Neut # (Auto) 4.71 (1.4-6.5) K/uL Lymph # (Auto) 0.63 L (1.2-3.4) K/uL [place] # (Auto) 0.67 H (0.11-0.59) K/uL Eos # (Auto) 0.03 (0-0.5) K/uL Baso # (Auto) 0.01 (0-0.2) K/uL Immature Gran # (Auto) 0.00 (0.00-0.02) K/uL PT 11.2 (9.0-12.0) Seconds INR 1.1 (0.9-1.1) APTT 26.5 (21.0-31.0) Seconds PTT Ratio 1.0 Sodium 140 (136-145) mmol/L Potassium 2.6 L (3.5-5.1) mmol/L Chloride 103 (98-107) mmol/L Carbon Dioxide 31 (21-32) mmol/L Anion Gap 6.0 (3-11) BUN 7 (7-18) mg/dl Creatinine 0.77 (0.6-1.2) mg/dl Est Cr Clr Drug Dosing Not Reportable Est GFR ( Amer) 94.6 Est GFR (Non-Af Amer) 81.6 BUN/Creatinine Ratio 8.7 L (10-20) Glucose 102 H (70-99) mg/dl Calcium 8.8 (8.5-10.1) mg/dl Magnesium (1.8-2.4) mg/dl Total Bilirubin 0.4 (0.2-1) mg/dl AST 11 L (15-37) U/L ALT 18 (12-78) U/L Alkaline Phosphatase 93 (45-117) U/L Troponin I < 0.015 (0-0.045) ng/ml Total Protein 6.6 (6.4-8.2) gm/dl Albumin 2.9 L (3.4-5.0) gm/dl Globulin 3.7 (2.5-4.0) gm/dl Albumin/Globulin Ratio 0.8 L (0.9-2) Lipase 31 L (73-393) U/L Procalcitonin (0-0.5) ng/ml COVID-19 Eval Order SARS-CoV-2 (PCR) (Negative) Influenza Type A (PCR) (Neg) Influenza Type B (PCR) (Neg) RSV (RT-PCR) (Neg) 05/29/20 05/29/20 05/29/20 Range/Units 11:35 11:35 15:28 WBC (4.8-10.8) K/uL RBC (4.2-5.4) M/uL Hgb (12.0-16.0) g/dL Hct (37-47) % MCV (80-100) fL MCH (25-34) pg MCHC (32-36) g/dL RDW Std Deviation (36.4-46.3) fL RDW Coeff of Anjelica (11.5-14.5) % Plt Count (130-400) K/uL MPV (7.4-10.4) fL Immature Gran % (Auto) % Neut % (Auto) % Lymph % (Auto) % [place] % (Auto) % Eos % (Auto) % Baso % (Auto) % Neut # (Auto) (1.4-6.5) K/uL Lymph # (Auto) (1.2-3.4) K/uL [place] # (Auto) (0.11-0.59) K/uL Eos # (Auto) (0-0.5) K/uL Baso # (Auto) (0-0.2) K/uL Immature Gran # (Auto) (0.00-0.02) K/uL PT (9.0-12.0) Seconds INR (0.9-1.1) APTT (21.0-31.0) Seconds PTT Ratio Sodium (136-145) mmol/L Potassium (3.5-5.1) mmol/L Chloride (98-107) mmol/L Carbon Dioxide (21-32) mmol/L Anion Gap (3-11) BUN (7-18) mg/dl Creatinine (0.6-1.2) mg/dl Est Cr Clr Drug Dosing Est GFR ( Amer) Est GFR (Non-Af Amer) BUN/Creatinine Ratio (10-20) Glucose (70-99) mg/dl Calcium (8.5-10.1) mg/dl Magnesium 1.9 (1.8-2.4) mg/dl Total Bilirubin (0.2-1) mg/dl AST (15-37) U/L ALT (12-78) U/L Alkaline Phosphatase (45-117) U/L Troponin I (0-0.045) ng/ml Total Protein (6.4-8.2) gm/dl Albumin (3.4-5.0) gm/dl Globulin (2.5-4.0) gm/dl Albumin/Globulin Ratio (0.9-2) Lipase (73-393) U/L Procalcitonin 25.85 H (0-0.5) ng/ml COVID-19 Eval Order [facility]sv at [facility] SARS-CoV-2 (PCR) (Negative) Influenza Type A (PCR) (Neg) Influenza Type B (PCR) (Neg) RSV (RT-PCR) (Neg) 05/29/20 Range/Units 15:28 WBC (4.8-10.8) K/uL RBC (4.2-5.4) M/uL Hgb (12.0-16.0) g/dL Hct (37-47) % MCV (80-100) fL MCH (25-34) pg MCHC (32-36) g/dL RDW Std Deviation (36.4-46.3) fL RDW Coeff of Anjelica (11.5-14.5) % Plt Count (130-400) K/uL MPV (7.4-10.4) fL Immature Gran % (Auto) % Neut % (Auto) % Lymph % (Auto) % [place] % (Auto) % Eos % (Auto) % Baso % (Auto) % Neut # (Auto) (1.4-6.5) K/uL Lymph # (Auto) (1.2-3.4) K/uL [place] # (Auto) (0.11-0.59) K/uL Eos # (Auto) (0-0.5) K/uL Baso # (Auto) (0-0.2) K/uL Immature Gran # (Auto) (0.00-0.02) K/uL PT (9.0-12.0) Seconds INR (0.9-1.1) APTT (21.0-31.0) Seconds PTT Ratio Sodium (136-145) mmol/L Potassium (3.5-5.1) mmol/L Chloride (98-107) mmol/L Carbon Dioxide (21-32) mmol/L Anion Gap (3-11) BUN (7-18) mg/dl Creatinine (0.6-1.2) mg/dl Est Cr Clr Drug Dosing Est GFR ( Amer) Est GFR (Non-Af Amer) BUN/Creatinine Ratio (10-20) Glucose (70-99) mg/dl Calcium (8.5-10.1) mg/dl Magnesium (1.8-2.4) mg/dl Total Bilirubin (0.2-1) mg/dl AST (15-37) U/L ALT (12-78) U/L Alkaline Phosphatase (45-117) U/L Troponin I (0-0.045) ng/ml Total Protein (6.4-8.2) gm/dl Albumin (3.4-5.0) gm/dl Globulin (2.5-4.0) gm/dl Albumin/Globulin Ratio (0.9-2) Lipase (73-393) U/L Procalcitonin (0-0.5) ng/ml COVID-19 Eval Order SARS-CoV-2 (PCR) NEGATIVE (Negative) Influenza Type A (PCR) Negative (Neg) Influenza Type B (PCR) Negative (Neg) RSV (RT-PCR) Negative (Neg) Administered Medications Morphine Sulfate (Morphine Sulfate 4 Mg/Ml 1 Ml Carp\\Vial) 4 mg IV Q30M PRN PRN Reason: Pain Stop: 06/12/20 11:23 Last Admin: 05/29/20 16:00 Dose: 4 mg Documented by: [id number] Admin: 05/29/20 14:21 Dose: 4 mg Documented by: [id number] Admin: 05/29/20 12:40 Dose: 4 mg Documented by: [id number] Admin: 05/29/20 11:42 Dose: 4 mg Documented by: [id number] Discontinued Medications Sodium Chloride (Nss 1000ml) 1,000 mls @ 999 mls/hr IV .Q1H1M LC Stop: 05/29/20 12:30 Last Infusion: 05/29/20 12:36 Dose: 0 mls/hr Documented by: [id number] Admin: 05/29/20 11:42 Dose: 999 mls/hr Documented by: [id number] Potassium Chloride (K Heladio / Wtr) 10 meq in 100 mls @ 100 mls/hr IV Q1H LC Stop: 05/29/20 14:14 Last Infusion: 05/29/20 15:24 Dose: 0 mls/hr Documented by: [id number] Admin: 05/29/20 14:22 Dose: 100 mls/hr Documented by: [id number] Infusion: 05/29/20 13:41 Dose: 100 mls/hr Documented by: [id number] Admin: 05/29/20 12:41 Dose: 100 mls/hr Documented by: [id number] Sodium Chloride (Nss 1000ml) 1,000 mls @ 999 mls/hr IV .Q1H1M ONE Stop: 05/29/20 14:41 Last Infusion: 05/29/20 15:24 Dose: 0 mls/hr Documented by: [id number] Admin: 05/29/20 14:22 Dose: 999 mls/hr Documented by: [id number] Cefepime HCl (Maxipime) 2,000 mg in 20 mls @ 5 mls/min IV NOW STA; Protocol Stop: 05/29/20 13:51 Last Admin: 05/29/20 14:22 Dose: 5 mls/min Documented by: [id number] Ioversol (Optiray 320 125ml) 120 ml IV ONCE ONE Stop: 05/29/20 12:28 Last Admin: 05/29/20 12:28 Dose: 120 ml Documented by: [id number] Ondansetron HCl (Ondansetron Inj 2 Mg/Ml 2 Ml Vial) 4 mg IV NOW STA Stop: 05/29/20 11:25 Last Admin: 05/29/20 11:42 Dose: 4 mg Documented by: [id number] Potassium Chloride (Potassium Chloride 10 Meq Tabcr) 20 meq PO NOW STA Stop: 05/29/20 12:12 Last Admin: 05/29/20 12:23 Dose: 20 meq Documented by: [id number] Imaging Data Radiologist's Impression: Patient: BREN BELTRAN Admit Date: 05/29/20 MR#: [id number] Address1: [address] [place] [address] Acct ID:[id number] Address2: Date: 1955 [facility] Zip: [place] [address] Age: 64 Location: ED Sex: F Room/Bed: Att Phy: Diagnosis: SOB, CHEST AND BACK PAIN Antonia Phy: Hany Glaser MD Service Date: 05/29/20 Fam Phy: Anibal Hebert MD Interpreting Phy: Ildefonso Alarcon MD Admit Phy: Ordering Phy: James Andersen DO cc: ~ CT ANGIOGRAPHY OF THE CHEST, PULMONARY EMBOLUS PROTOCOL CLINICAL HISTORY: Shortness of breath. Chest pain. History of small cell lung cancer. COMPARISON STUDY: Chest CT May 11, 2020. Chest radiograph performed earlier today. TECHNIQUE: Following IV administration of 120 mL of Optiray-320, helical axial images of the chest were obtained utilizing the pulmonary embolus protocol. Maximal intensity projections and sagittal and coronal reformats were viewed on an independent 3D workstation. IV contrast was administered without complication. Automated exposure control was utilized for the study. A dose lowering technique was utilized adhering to the principles of ALARA. CT DOSE: 555.91 mGy.cm FINDINGS: A right internal jugular Kkwaly-d-Chac is in place. No pulmonary emboli are identified. Mild cardiomegaly is noted. There is a trace pericardial effusion. This has increased since prior examination. Esophageal wall thickening has increased since prior exam. There may be minimal adjacent infiltration within the mediastinum. There is no pneumomediastinum. Small amount of suspected thrombus along the tip of the Lxnrfp-n-Vghs is unchanged since prior CT. Right hilar and mediastinal lymphadenopathy is similar to prior exam. A 1.7 x 1.6 cm nodule along the anterior aspect of the SVC has not significantly changed since prior exam. This could invade the SVC. A small right pleural effusion has developed. There is no pneumothorax. Multifocal nodular right lower lobe airspace opacity has increased since CT of May 11, 2020. Right upper lobe airspace opacity has not significant changed. There is moderate emphysema. No suspicious lesions within the bony thorax are noted. Old moderate T11 compression fractures unchanged. Upper abdomen is unremarkable. IMPRESSION: 1. No pulmonary emboli identified. 2. Mild increase in multifocal nodular right lower lobe airspace opacity since CT of May 11, 2020. An infectious etiology is favored. However, a pneumonitis related to treatment could appear similar. A neoplastic etiology is also within the differential but considered less likely. A follow-up chest CT in 2 months to ensure resolution is recommended. 3. No change in a nodule along into aspect of the SVC since prior exam. This may be neoplastic. Adjacent small amount of suspected thrombus along the tip of the right internal jugular Pborpq-b-Yodo is also unchanged. This may reflect bland or tumor thrombus. 4. Increase in esophageal wall thickening. This favors esophagitis may be treatment related. Minimal adjacent mediastinal infiltration. No pneumomediastinum. 5. Emphysema. 6. Small right pleural effusion. ACT 112: Negative or not required by law. Electronically signed by: Ildefonso Alarcon M.D. 05/29/2020 12:59 PM Dictated: 05/29/20 1246 Transcribed: 05/29/20 1246 Patient: BREN BELTRAN Admit Date: 05/29/20 MR#: [id number] Address1: [address] [place] [address] Acct ID:[id number] Address2: Date: 1955 [facility] Zip: [place] [address] Age: 64 Location: ED Sex: F Room/Bed: Att Phy: Diagnosis: SOB, CHEST AND BACK PAIN Antonia Phy: Hany Glaser MD Service Date: 05/29/20 [facility] Phy: Anibal Hebert MD Interpreting Phy: Ildefonso Alarcon MD Admit Phy: Ordering Phy: James Andersen, cc: ~ XR chest 1V portable CLINICAL HISTORY: Chest pain. History of small cell lung cancer. COMPARISON STUDY: Chest CT May 11, 2020. FINDINGS: Right internal jugular Wdqzxc-[id number]-Klxq is in place. There is no pneumothorax or pleural effusion. No evidence for pulmonary edema. Cardiomedia stinal silhouette is unchanged. Patient is mildly rotated. Right upper lung airspace opacities and interstitial thickening shown on prior CT have slightly improved. There is minimal right basilar opacity. IMPRESSION: 1. Minimal right basilar opacity. 2. Interval improvement in right upper lung airspace opacity since prior CT. ACT 112: Negative or not required by law. Electronically signed by: Ildefonso Alarcon M.D. 05/29/2020 12:01 PM Dictated: 05/29/20 1157 Transcribed: 05/29/20 1157 Blood Pressure Blood Pressure Findings: Normal blood pressure Discharge Plan Visit Data Chief Complaint: Chest Pain Stated Complaint: SOB, CHEST AND BACK PAIN ED Provider: James Andersen Discharge Problem: Pneumonia, Chest pain, Hypokalemia Patient Disposition: Being Evaluated by Hospitalist Condition: Good Forms Stand Alone Forms: My [facility] Prescriptions Prescriptions: No Action albuterol sulfate 90 mcg/actuation HFA aerosol inhaler 2 puff INH Q6H PRN (Reason: Shortness Of Breath Or Wheezing) Qty: 18 RF: 3 duloxetine 60 mg capsule,delayed release(DR/EC) 60 mg PO QAM RF: 0 omeprazole 20 mg capsule,delayed release(DR/EC) 20 mg PO BID 30 Days Qty: 60 RF: 3 magnesium oxide 400 mg (241.3 mg magnesium) Tablet 400 mg PO BID Qty: 60 RF: 0 atorvastatin 40 mg tablet 40 mg PO HS RF: 0 ondansetron 8 mg tablet,disintegrating 8 mg PO Q8H PRN (Reason: Nausea And Vomiting) RF: 0 fludrocortisone 0.1 mg tablet 0.1 mg PO BID RF: 0 oxycodone 10 mg tablet 10 mg PO Q6H PRN (Reason: Moderate Pain (Scale Score 5-6)) RF: 0 Eliquis 2.5 mg tablet 2.5 mg PO BID RF: 0 Anoro Ellipta 62.5-25 mcg/actuation blister with device 1 puffs INH QAM RF: 0 Referrals Referrals: Hany Glaser MD [Primary Care Provider] - Discharge Problem: Pneumonia Qualifiers: Pneumonia type: due to unspecified organism Laterality: unspecified laterality Lung location: unspecified part of lung Qualified Code(s): J18.9 - Pneumonia, unspecified organism Chest pain Qualifiers: Chest pain type: unspecified Qualified Code(s): R07.9 - Chest pain, unspecified
[2020-05-29] MEDS: MoRPHine SULFATE 4 MG/ML 1 ML CARP\\VIAL IV PRN ×5 (11:42→23:38)
[2020-05-29 11:45] LABS: Basophils # (auto) 0.01 K/uL (0-0.2); Basophils % (auto) 0.2 %; Eosinophils # (auto) 0.03 K/uL (0-0.5); Eosinophils % (auto) 0.5 %; Hematocrit (blood only) 30.4 % (37-47); Hemoglobin 10.2 g/dL (12.0-16.0); Lymphocytes # (auto) 0.63 K/uL (1.2-3.4); Lymphocytes % (auto) 10.4 %; Mean Corpuscular Hemoglobin 35.7 pg (25-34); Mean Corpuscular Hgb Conc 33.6 g/dL (32-36); Mean Corpuscular Volume 106.3 fL (80-100); Mean Platelet Volume 10.4 fL (7.4-10.4); Monocytes # (auto) 0.67 K/uL (0.11-0.59); Monocytes % (auto) 11.1 %; Neutrophils # (auto) 4.71 K/uL (1.4-6.5); Neutrophils % (auto) 77.8 %; Platelet Count 134 K/uL (130-400); RDW Coefficient of Variation 15.7 % (11.5-14.5); Red Blood Count 2.86 M/uL (4.2-5.4); White Blood Count 6.05 K/uL (4.8-10.8)
[2020-05-29 11:57] LABS: INR 1.1 (0.9-1.1); Partial Thromboplastin Time 26.5 Seconds (21.0-31.0); Prothrombin Time 11.2 Seconds (9.0-12.0)
[2020-05-29 12:03] LABS: Alanine Aminotransferase 18 U/L (12-78); Albumin Level 2.9 gm/dl (3.4-5.0); Aspartate Aminotransferase 11 U/L (15-37); BUN Creatinine Ratio 8.7 (10-20); Blood Urea Nitrogen 7 mg/dl (7-18); Calcium 8.8 mg/dl (8.5-10.1); Carbon Dioxide 31 mmol/L (21-32); Chloride 103 mmol/L (98-107); Est GFR (African American) 94.6; Est GFR (Non-African American) 81.6; Glucose 102 mg/dl (70-99); Lipase 31 U/L (73-393); Potassium 2.6 mmol/L (3.5-5.1); Sodium 140 mmol/L (136-145)
--- NOTE | 2020-05-29 12:03 | XRay Report ---
XR chest 1V portable CLINICAL HISTORY: Chest pain. History of small cell lung cancer. COMPARISON STUDY: Chest CT May 11, 2020. FINDINGS: Right internal jugular Lssgcj-j-[id number] is in place. There is no pneumothorax or pleural effus ion. No evidence for pulmonary edema. Cardiomediastinal silhouette is unchanged. Patient is mildly ro tated. Right upper lung airspace opacities and interstitial thickening shown on prior CT have slightl y improved. There is minimal right basilar opacity. IMPRESSION: 1. Minimal right basilar opacity. 2. Interval improvement in right upper lung airspace opacity since prior CT. ACT 112: Negative or not required by law. Electronically signed by: Ildefonso Alarcon M.D. 05/29/2020 12:01 PM
[2020-05-29 12:08] LABS: Albumin Globulin Ratio 0.8 (0.9-2); Alkaline Phosphatase 93 U/L (45-117); Bilirubin,Total 0.4 mg/dl (0.2-1); Globulin 3.7 gm/dl (2.5-4.0); Total Protein 6.6 gm/dl (6.4-8.2); Troponin I < 0.015 ng/ml (0-0.045)
[2020-05-29] MEDS ORDERED: POTASSIUM CHLORIDE 10 MEQ TABCR PO STA (12:11)
[2020-05-29] MEDS ORDERED: OPTIRAY 320 125ml IV ONE (12:27)
[2020-05-29] MEDS: POTASSIUM CHLORIDE / WTR 10 MEQ/100 ML PLCT IV SCH ×2 (12:41→14:22)
--- NOTE | 2020-05-29 13:01 | CT Scan Report ---
CT ANGIOGRAPHY OF THE CHEST, PULMONARY EMBOLUS PROTOCOL CLINICAL HISTORY: Shortness of breath. Chest pain. History of small cell lung cancer. COMPARISON STUDY: Chest CT May 11, 2020. Chest radiograph performed earlier today. TECHNIQUE: Following IV administration of 120 mL of Optiray-320, helical axial images of the chest we re obtained utilizing the pulmonary embolus protocol. Maximal intensity projections and sagittal and coronal reformats were viewed on an independent 3D workstation. IV contrast was administered withou t complication. Automated exposure control was utilized for the study. A dose lowering technique wa s utilized adhering to the principles of ALARA. CT DOSE: 555.91 mGy.cm FINDINGS: A right internal jugular Aavdgz-a-Kqtm is in place. No pulmonary emboli are identified. Mi ld cardiomegaly is noted. There is a trace pericardial effusion. This has increased since prior exami nation. Esophageal wall thickening has increased since prior exam. There may be minimal adjacent infi ltration within the mediastinum. There is no pneumomediastinum. Small amount of suspected thrombus al jian the tip of the Zyphfb-i-Cayb is unchanged since prior CT. Right hilar and mediastinal lymphadenop athy is similar to prior exam. A 1.7 x 1.6 cm nodule along the anterior aspect of the SVC has not sig nificantly changed since prior exam. This could invade the SVC. A small right pleural effusion has de veloped. There is no pneumothorax. Multifocal nodular right lower lobe airspace opacity has increased since CT of May 11, 2020. Right upper lobe airspace opacity has not significant changed. There i s moderate emphysema. No suspicious lesions within the bony thorax are noted. Old moderate T11 compre ssion fractures unchanged. Upper abdomen is unremarkable. IMPRESSION: 1. No pulmonary emboli identified. 2. Mild increase in multifocal nodular right lower lobe airspace opacity since CT of May 11, 2020 . An infectious etiology is favored. However, a pneumonitis related to treatment could appear similar . A neoplastic etiology is also within the differential but considered less likely. A follow-up chest CT in 2 months to ensure resolution is recommended. 3. No change in a nodule along into aspect of the SVC since prior exam. This may be neoplastic. Adjac ent small amount of suspected thrombus along the tip of the right internal jugular Dsleca-n-Zcbf is a lso unchanged. This may reflect bland or tumor thrombus. 4. Increase in esophageal wall thickening. This favors esophagitis may be treatment related. Minimal adjacent mediastinal infiltration. No pneumomediastinum. 5. Emphysema. 6. Small right pleural effusion. ACT 112: Negative or not required by law. Electronically signed by: Ildefonso Alarcon M.D. 05/29/2020 12:59 PM
--- NOTE | 2020-05-29 13:14 | Electrocardiogram Report ---
Test Reason : Blood Pressure : / mmHG Vent. Rate : 090 BPM Atrial Rate : 090 BPM P-R Int : 124 ms QRS Dur : 078 ms QT Int : 386 ms P-R-T Axes : 039 058 038 degrees QTc Int : 472 ms Normal sinus rhythm Nonspecific ST abnormality Abnormal ECG When compared with ECG of 03-FEB-2020 15:21, No significant change was found Confirmed by Michel Alfaro ([id number]) on 05/29/2020 1:13:59 PM Referred By: REFERRED SELF Confirmed By:Carlyle Alfaro
[2020-05-29] MEDS ORDERED: SODIUM CHLORIDE 0.9% 1000ML 1,000 ML IV ONE (13:41)
[2020-05-29] MEDS ORDERED: CEFEPIME 2,000 MG/20 ML VIAL IV STA (13:48)
[2020-05-29] MEDS ORDERED: MAGNESIUM HYDROXIDE SUSP 30 ML UDC PO PRN (15:51)
[2020-05-29] MEDS ORDERED: POLYETHYLENE (MIRALAX) 17 GM PACK PO PRN (15:51)
[2020-05-29] MEDS ORDERED: ACETAMINOPHEN 325 MG TAB PO PRN (15:51)
[2020-05-29] MEDS ORDERED: ALUMINUM/MAGNESIUM SUSP 30 ML UDC PO PRN (15:51)
--- NOTE | 2020-05-29 16:03 | History & Physical Report ---
Date of Service May 29, 2020 Assessment & Plan (1) Chest pain: presented with right sided chest pain hx of Lung ca s/p chemo CTA chest no PE possible musculoskeletal origin and or due to pneumonitis rt lower lobe airspace opacity increased since CT chest of 05/30 pain control , pt reports transient pain relief with IV morphine ,but effect dose not last longer added PRN Oxy codon abx tx for pneumonia as below (2) Pneumonia: CT finding as above no evidence of sepsis , no fever or chills cont Empiric Abx for community acquired pneumonia : Rocephin and Doxycycline , monitor clinically (3) Pancytopenia: due to chemo tx follow CBC (4) Small cell lung cancer in adult: s/p chemo and radiation tx (5) Hypokalemia: due to poor po intake no report of nausea /vomiting or diarrhea ordered for PO replacement follow labs Full code DVT prophylaxis : on Eliquis Disposition PT/OT eval prior to discharge History of Present Illness Chief Complaint: Chest pain. Primary Care Provider: Hany Glaser MD Disease a 64-year-old female with past medical history of small cell lung cancer on chemo status post radiation treatment, history of DVT, admitted yesterday at 2 [facility] with intractable right-sided chest pain shortness of breath due to right sided chest pain , does not have any cough recent dx of clot on rt chest wall indwelling port Patient is already anticoagulated on Eliquis pt reports pain is worsened with taking deep breath CT chest with contrast : 1. No pulmonary emboli identified. 2. Mild increase in multifocal nodular right lower lobe airspace opacity since CT of May 11, 2020. An infectious etiology is favored. However, a pneumonitis related to treatment could appear similar. A neoplastic etiology is also within the differential but considered less likely. A follow-up chest CT in 2 months to ensure resolution is recommended. 3. No change in a nodule along into aspect of the SVC since prior exam. This may be neoplastic. Adjacent small amount of suspected thrombus along the tip of the right internal jugular [id number]-g-Iolm is also unchanged. This may reflect bland or tumor thrombus. 4. Increase in esophageal wall thickening. This favors esophagitis may be treatment related. Minimal adjacent mediastinal infiltration. No pneumomediastinum. pt will be admitted to Medical telemetry , empiric abx for possible community acquired pneumonia Allergies Allergy/AdvReac Type Severity Reaction Status Date / Time mushroom Allergy Severe anaphylaxis Verified 05/29/20 11:58 Penicillins Allergy Severe anaphylaxis, Verified 05/29/20 11:58 facial & throat swelling acetazolamide Allergy Intermediate rash, hives Verified 05/29/20 11:58 mold Allergy Unknown unknown Verified 05/29/20 11:58 reaction sumatriptan AdvReac Intermediate flushing, Verified 05/29/20 11:58 heart racing Home Medications Medication Instructions Recorded Confirmed Type albuterol sulfate 90 mcg/actuation 2 puff INH Q6H PRN #18 gm 10/23/19 05/29/20 Rx aerosol inhaler duloxetine 60 mg PO QAM 01/03/20 05/29/20 History omeprazole 20 mg PO BID 30 Days #60 cap 01/27/20 05/29/20 Rx magnesium oxide 400 mg PO BID #60 tab 02/07/20 05/29/20 Rx Anoro Ellipta 1 puffs INH QAM 05/29/20 05/29/20 History apixaban [Eliquis] 2.5 mg PO BID 05/29/20 05/29/20 History atorvastatin 40 mg PO HS 05/29/20 05/29/20 History fludrocortisone 0.1 mg PO BID 05/29/20 05/29/20 History ondansetron 8 mg PO Q8H PRN 05/29/20 05/29/20 History oxycodone 10 mg PO Q6H PRN 05/29/20 05/29/20 History Past Med/Surg History Medical History (Updated 05/29/20 @ 16:45 by James Andersen DO) Acute kidney injury Acute shoulder pain Now a constant ache - no prescription meds needed Anxiety Chronic venous insufficiency follows with vascular (Dr. Carlson) CKD (chronic kidney disease), stage III COPD with emphysema Dentalgia Depression Hypertension Kidney stones LAD (lymphadenopathy), mediastinal Major depressive disorder, recurrent episode with anxious distress Daughter from OD in 2016 Migraine Nausea & vomiting Neutropenia with fever Nicotine dependence Pancytopenia Polysubstance overdose Hx of 2017 Pulmonary nodule "7 mm RUL nodule, stable 09/25/15 - 09/16/16; repeat 6 mos" Surgical History History of bronchoscopy 10/30/2019 - with EBUS History of cataract surgery 2004 - bilateral History of section 1991 History of colonoscopy unsuccessful (poor bowel prep) History of cystoscopy 2007 - with stent History of dental surgery 02/2019 - Full upper teeth extracted S/P arthroscopy of left knee S/P arthroscopy of right knee Family History Grandmother (Maternal) , Passed in 80's of metastatic cancer (unknown primary) No problems noted. Mother , Passed age 93 of natural causes No problems noted. Father , Passed age 97 of natural causes No problems noted. Brother No problems noted. Daughter , Passed age 24 from Over Dose No problems noted. Other No family history of adverse response to anesthesia Social History Smoking Status: Former smoker Tobacco Type: Cigarettes packs per day: 2; Years Smoked: 44; Second Hand Exposure: No; Hx Alcohol Use: No Hx Substance Use: No Preferred Language: Lebanese Communication Ability: Effective Visual Impairment: Limited Hearing Ability: Normal Application Trainer Required: No Beliefs That Will Affect Care: None marital status: Current Living Situation: Alone Current Living Situation Comment: Home Health current occupational status: retired current occupation: [employer] at [employer] Other Information That Helps Us Care for You: No Feels Safe at Home: Yes Safety Concerns: Feels Safe At This Time Childhood Exposure to Second-Hand Smoke: No caffeine: Yes (2 cups of coffee/day ) during the past year weight has: remained stable Dental Care, Regularly: Yes Assistive Devices: Glasses Review of Systems Review of Systems: All systems reviewed & are unremarkable except as noted in Subjective Constitutional: + fatigue and + weakness; no fever, no chills and no body aches Respiratory: + pain on inspiration; no cough Cardiovascular: + chest pain and + dyspnea; no palpitations and no syncope Physical Exam Constitutional: WD/WN, vitals as above + ill appearing Eyes: + anicteric sclerae ENMT: external ear and nose normal, oropharynx normal Neck: trachea midline, no thyromegaly Respiratory: no cough Auscultation: + diminished lung sounds; no crackles, no rales and no wheezes Cardiovascular: RRR, no murmur, no edema Gastrointestinal (Abdomen): Percussion/Palpation: abdomen soft; abdomen nontender Musculoskeletal: no cyanosis or clubbing, extremities motor strength 5/5 Skin: no rashes, warm and dry Neurologic: PERRL, EOMI, accommodation nl, no face palsy, no dysarthria Psychiatric: A+Ox3, euthymic affect Results & Data Results & Data ([facility]) Vital Signs (Past 12 Hours) Vital Signs Temp Pulse Resp BP Pulse Ox 05/29/20 15:31 78 22 100 05/29/20 15:30 81 14 149/88 H 98 05/29/20 15:01 81 15 100 05/29/20 15:00 82 18 121/77 100 05/29/20 14:31 87 28 H 113/88 100 05/29/20 14:30 85 24 100 05/29/20 14:01 80 26 H 100 05/29/20 14:00 81 21 123/89 100 05/29/20 13:31 81 14 100 05/29/20 13:30 80 18 115/80 100 05/29/20 13:01 83 17 100 05/29/20 13:00 82 20 127/71 100 05/29/20 12:42 80 17 134/105 H 100 05/29/20 12:38 77 21 88 L 05/29/20 12:03 88 34 H 89 L 05/29/20 12:00 87 29 H 111/81 90 05/29/20 11:49 87 24 93 05/29/20 11:16 36.7 C 97 H 20 94/53 L 97 Code Status & VTE Plan VTE Prophylaxis Plan VTE Prophylaxis will be ordered: Yes
[2020-05-29 16:29] LABS: Influenza A virus by PCR Negative (Neg); Influenza B virus by PCR Negative (Neg); RSV by PCR Negative (Neg); SARS CoV2 RNA(COVID-19) InHosp NEGATIVE (Negative)
[2020-05-29] MEDS ORDERED: ONDANSETRON 8MG OD TAB PO PRN (18:04)
[2020-05-29] MEDS ORDERED: NSS + 20MEQ KCL 20 MEQ/1,000 ML BAG IV SCH (18:15)
[2020-05-29] MEDS: oxyCODONE HCL IR 5 MG TAB (IMMEDIATE RELEASE) PO PRN (18:48)
[2020-05-29 18:53] LABS: BUN Creatinine Ratio 8.9 (10-20); Blood Urea Nitrogen 7 mg/dl (7-18); Calcium 8.1 mg/dl (8.5-10.1); Carbon Dioxide 30 mmol/L (21-32); Chloride 108 mmol/L (98-107); Est GFR (African American) 99.2; Est GFR (Non-African American) 85.6; Glucose 79 mg/dl (70-99); Potassium 3.4 mmol/L (3.5-5.1); Sodium 142 mmol/L (136-145); Troponin I < 0.015 ng/ml (0-0.045)
[2020-05-29 20:06] LABS: Appearance Urine Clear (Clear); Bilirubin Urine Negative (Negative); Blood Urine Negative (Negative); Color Urine Yellow; Glucose Urine UA Negative (Negative); Ketones Urine Trace (Negative); Leukocyte Esterase Urine Negative (Negative); Nitrite Urine Negative (Negative); Protein Urine Negative (Negative); Specific Gravity Urine 1.039 (1.000-1.030); Urobilinogen Urine Negative (Negative); pH Urine 6.5 (4.5-7.5)
[2020-05-29] MEDS: cefTRIAXone SODIUM 2,000 MG in DEXTROSE 5% 50 ML IV SCH (20:19)
[2020-05-29] MEDS: FLUDROCORTISONE ACETATE 0.1 MG TAB PO SCH ×2 (20:20→20:25)
[2020-05-29] MEDS: ATORVASTATIN 40 MG TAB PO SCH (20:20)
[2020-05-29] MEDS: PANTOprazole 40 MG TAB PO SCH (20:20)
[2020-05-29] MEDS: APIXABAN 2.5 MG TAB PO SCH (20:21)
[2020-05-29] MEDS: DOXYCYCLINE HYCLATE 100 MG CAP PO SCH (20:21)
[2020-05-29] MEDS: MAGNESIUM OXIDE 400 MG TAB PO SCH (20:21)
[2020-05-29] MEDS ORDERED: cefTRIAXone SODIUM 2,000 MG in DEXTROSE 5% 50 ML IV SCH (21:00)
[2020-05-29] MEDS: HEPARIN 100 UNIT/ML 5ML FLUSH FLUSH PRN (23:39)
[2020-05-30] MEDS: ONDANSETRON INJ 2 MG/ML 2 ML VIAL IV PRN ×2 (01:25→22:32)
[2020-05-30] MEDS: oxyCODONE HCL IR 5 MG TAB (IMMEDIATE RELEASE) PO PRN ×3 (01:25→20:54)
[2020-05-30] MEDS: HEPARIN 100 UNIT/ML 5ML FLUSH FLUSH PRN ×4 (01:25→14:41)
[2020-05-30] MEDS: MoRPHine SULFATE 4 MG/ML 1 ML CARP\\VIAL IV PRN ×3 (06:17→23:50)
[2020-05-30] MEDS: MAGNESIUM OXIDE 400 MG TAB PO SCH ×2 (06:19→18:05)
[2020-05-30 07:59] LABS: Hematocrit (blood only) 26.7 % (37-47); Hemoglobin 8.8 g/dL (12.0-16.0); Mean Corpuscular Hemoglobin 35.6 pg (25-34); Mean Corpuscular Volume 108.1 fL (80-100); Mean Platelet Volume 10.7 fL (7.4-10.4); Platelet Count 112 K/uL (130-400); RDW Standard Deviation 62.3 fL (36.4-46.3); Red Blood Count 2.47 M/uL (4.2-5.4); White Blood Count 4.75 K/uL (4.8-10.8)
[2020-05-30 08:24] LABS: BUN Creatinine Ratio 7.5 (10-20); Calcium 8.2 mg/dl (8.5-10.1); Creatinine Clr Calc Pharmacy 78.1 ml/min; Est GFR (African American) 104.3; Potassium 3.3 mmol/L (3.5-5.1)
[2020-05-30] MEDS: FLUDROCORTISONE ACETATE 0.1 MG TAB PO SCH ×2 (08:35→20:56)
[2020-05-30] MEDS: PANTOprazole 40 MG TAB PO SCH ×2 (08:35→20:56)
[2020-05-30] MEDS: UMECLIDINIUM/VILANTEROL 62.5/25MCG 7 PUFFS/INHALER INH SCH (08:35)
[2020-05-30] MEDS: DOXYCYCLINE HYCLATE 100 MG CAP PO SCH ×2 (08:36→20:55)
[2020-05-30] MEDS: APIXABAN 2.5 MG TAB PO SCH ×2 (08:37→20:57)
[2020-05-30] MEDS: DULoxetine HCL 60 MG CAP PO SCH (08:37)
[2020-05-30] MEDS ORDERED: oxyCODONE HCL IR 5 MG TAB (IMMEDIATE RELEASE) PO STA ×2 (09:35→17:59)
[2020-05-30] MEDS ORDERED: POTASSIUM CHLORIDE CRTAB 20 MEQ TABCR PO STA (15:39)
[2020-05-30] MEDS ORDERED: NSS + 20MEQ KCL 20 MEQ/1,000 ML BAG IV SCH (16:00)
--- NOTE | 2020-05-30 17:25 | Hospitalist Progress Note ---
Date of Service May 30, 2020 Assessment & Plan (1) Chest pain: presented with right sided chest pain hx of Lung ca s/p chemo CTA chest no PE possible musculoskeletal origin and or due to pneumonitis rt lower lobe airspace opacity increased since CT chest of 05/30 pain control , pt reports transient pain relief with IV morphine ,but effect dose not last longer added PRN Oxy codon abx tx for pneumonia as below (2) Pneumonia: CT finding as above no evidence of sepsis , no fever or chills cont Empiric Abx for community acquired pneumonia : Rocephin and Doxycycline , monitor clinically (3) Pancytopenia: due to chemo tx follow CBC (4) Small cell lung cancer in adult: s/p chemo and radiation tx (5) Hypokalemia: due to poor po intake no report of nausea /vomiting or diarrhea ordered for PO replacement follow labs Full code DVT prophylaxis : on Eliquis Disposition PT/OT eval prior to discharge Admission and Anticipated Discharge Date Admission Date: May 29, 2020 Subjective follow up visit for right sided chest pain intermittent pain , getting relief with pain meds no cough , no sob , no fever or chills Review of Systems Review of Systems: All systems reviewed & are unremarkable except as noted in Subjective Physical Exam Constitutional: WD/WN, vitals as above + ill appearing Eyes: + anicteric sclerae ENMT: external ear and nose normal, oropharynx normal Neck: trachea midline, no thyromegaly Respiratory: no cough Auscultation: + diminished lung sounds; no crackles, no rales and no wheezes Cardiovascular: RRR, no murmur, no edema Gastrointestinal (Abdomen): Percussion/Palpation: abdomen soft; abdomen nontender Musculoskeletal: no cyanosis or clubbing, extremities motor strength 5/5 Skin: no rashes, warm and dry Neurologic: PERRL, EOMI, accommodation nl, no face palsy, no dysarthria Psychiatric: A+Ox3, euthymic affect Results & Data Results & Data ([facility]) Vital Signs (Past 12 Hours) Vital Signs Temp Pulse Pulse Resp BP Pulse Ox 05/30/20 16:06 86/58 L 05/30/20 15:29 37.3 C 90 16 70/42 L 05/30/20 11:12 37.1 C 99 H 16 88/57 L 94 05/30/20 07:46 36.7 C 91 H 16 84/52 L 92 05/30/20 07:30 82
[2020-05-30] MEDS: cefTRIAXone SODIUM 2,000 MG in DEXTROSE 5% 50 ML IV SCH (20:55)
[2020-05-30] MEDS: ATORVASTATIN 40 MG TAB PO SCH (20:56)
[2020-05-31] MEDS: oxyCODONE HCL IR 5 MG TAB (IMMEDIATE RELEASE) PO PRN ×4 (02:57→18:26)
[2020-05-31] MEDS ORDERED: SODIUM CHLORIDE 0.9% 500 ML IV SCH (04:00)
[2020-05-31] MEDS: HEPARIN 100 UNIT/ML 5ML FLUSH FLUSH PRN ×5 (05:25→22:47)
[2020-05-31] MEDS: MAGNESIUM OXIDE 400 MG TAB PO SCH ×2 (06:07→20:27)
[2020-05-31 06:10] LABS: Hematocrit (blood only) 25.9 % (37-47); Hemoglobin 8.5 g/dL (12.0-16.0); Mean Corpuscular Hemoglobin 35.9 pg (25-34); Mean Corpuscular Hgb Conc 32.8 g/dL (32-36); Mean Corpuscular Volume 109.3 fL (80-100); Mean Platelet Volume 10.9 fL (7.4-10.4); Platelet Count 113 K/uL (130-400); RDW Coefficient of Variation 15.8 % (11.5-14.5); RDW Standard Deviation 62.3 fL (36.4-46.3); Red Blood Count 2.37 M/uL (4.2-5.4); White Blood Count 3.75 K/uL (4.8-10.8)
[2020-05-31] MEDS: MoRPHine SULFATE 4 MG/ML 1 ML CARP\\VIAL IV PRN ×4 (06:10→20:51)
[2020-05-31] MEDS: ONDANSETRON INJ 2 MG/ML 2 ML VIAL IV PRN ×2 (06:11→20:35)
[2020-05-31 06:43] LABS: BUN Creatinine Ratio 7.2 (10-20); Calcium 7.8 mg/dl (8.5-10.1); Est GFR (African American) 108.7; Est GFR (Non-African American) 93.8; Potassium 3.6 mmol/L (3.5-5.1)
[2020-05-31] MEDS: APIXABAN 2.5 MG TAB PO SCH ×2 (08:29→20:28)
[2020-05-31] MEDS: PANTOprazole 40 MG TAB PO SCH ×2 (08:29→20:28)
[2020-05-31] MEDS: FLUDROCORTISONE ACETATE 0.1 MG TAB PO SCH ×2 (08:29→20:28)
[2020-05-31] MEDS: DULoxetine HCL 60 MG CAP PO SCH (08:29)
[2020-05-31] MEDS: DOXYCYCLINE HYCLATE 100 MG CAP PO SCH ×2 (08:30→20:27)
[2020-05-31] MEDS: UMECLIDINIUM/VILANTEROL 62.5/25MCG 7 PUFFS/INHALER INH SCH (08:30)
--- NOTE | 2020-05-31 17:35 | Hospitalist Progress Note ---
Date of Service May 31, 2020 Assessment & Plan (1) Chest pain: presented with right sided chest pain hx of Lung ca s/p chemo CTA chest no PE possible musculoskeletal origin and or due to pneumonitis rt lower lobe airspace opacity increased since CT chest of 05/30 pain control , pt reports transient pain relief with IV morphine ,but effect dose not last longer added PRN Oxy codon abx tx for pneumonia as below (2) Pneumonia: CT finding as above no evidence of sepsis , no fever or chills cont Empiric Abx for community acquired pneumonia : Rocephin and Doxycycline , monitor clinically (3) Pancytopenia: due to chemo tx follow CBC (4) Small cell lung cancer in adult: s/p chemo and radiation tx (5) Hypokalemia: due to poor po intake no report of nausea /vomiting or diarrhea ordered for PO replacement follow labs Full code DVT prophylaxis : on Eliquis Disposition PT/OT lorraine requested 2 step exercise to assess home 02 needs possible dc home in next 1-2 days Admission and Anticipated Discharge Date Admission Date: May 29, 2020 Subjective follow up visit for right sided chest pain chest pain better controlled now with current pain meds regimen no cough or sob, no fever or chills on 2 L 02 via nasal canula ( not on home02 ) Review of Systems Review of Systems: All systems reviewed & are unremarkable except as noted in HPI & below Physical Exam Constitutional: WD/WN, vitals as above + ill appearing Eyes: + anicteric sclerae ENMT: external ear and nose normal, oropharynx normal Neck: trachea midline, no thyromegaly Respiratory: no cough Auscultation: + diminished lung sounds; no crackles, no rales and no wheezes Cardiovascular: RRR, no murmur, no edema Gastrointestinal (Abdomen): Percussion/Palpation: abdomen soft; abdomen non tender Musculoskeletal: no cyanosis or clubbing, extremities motor strength 5/5 Skin: no rashes, warm and dry Neurologic: PERRL, EOMI, accommodation nl, no face palsy, no dysarthria Psychiatric: A+Ox3, euthymic affect Results & Data Results & Data ([facility]) Vital Signs (Past 12 Hours) Vital Signs Temp Pulse Pulse Resp BP Pulse Ox 05/31/20 15:12 37.0 C 99 H 18 100/70 91 05/31/20 11:17 36.8 C 98 H 20 92/64 L 91 05/31/20 07:30 80 05/31/20 07:16 36.7 C 78 18 94/62 L 93 05/31/20 06:08 112/77
[2020-05-31] MEDS: cefTRIAXone SODIUM 2,000 MG in DEXTROSE 5% 50 ML IV SCH (20:26)
[2020-05-31] MEDS: ATORVASTATIN 40 MG TAB PO SCH (20:28)
[2020-05-31] MEDS ORDERED: PROCHLORPERAZINE 5 MG in SYRINGE 4 ML IV PRN (22:30)
[2020-06-01] MEDS: oxyCODONE HCL IR 5 MG TAB (IMMEDIATE RELEASE) PO PRN ×3 (00:57→12:35)
[2020-06-01] MEDS: HEPARIN 100 UNIT/ML 5ML FLUSH FLUSH PRN ×3 (03:02→17:12)
[2020-06-01] MEDS: MoRPHine SULFATE 4 MG/ML 1 ML CARP\\VIAL IV PRN ×2 (03:02→08:51)
[2020-06-01] MEDS: MAGNESIUM OXIDE 400 MG TAB PO SCH (06:00)
[2020-06-01] MEDS: UMECLIDINIUM/VILANTEROL 62.5/25MCG 7 PUFFS/INHALER INH SCH (07:41)
[2020-06-01] MEDS: FLUDROCORTISONE ACETATE 0.1 MG TAB PO SCH (07:41)
[2020-06-01] MEDS: PANTOprazole 40 MG TAB PO SCH (07:41)
[2020-06-01] MEDS: DULoxetine HCL 60 MG CAP PO SCH (07:41)
[2020-06-01] MEDS: APIXABAN 2.5 MG TAB PO SCH (07:41)
[2020-06-01] MEDS: DOXYCYCLINE HYCLATE 100 MG CAP PO SCH (07:42)
[2020-06-01] MEDS ORDERED: CYCLOBENZAPRINE HCL 10 MG TAB PO PRN (09:15)
--- NOTE | 2020-06-01 16:18 | Discharge Summary ---
Date of Service June 01, 2020 Admission HPI Per Admitting Provider Disease a 64-year-old female with past medical history of small cell lung cancer on chemo status post radiation treatment, history of DVT, admitted yesterday at 2 [facility] with intractable right-sided chest pain shortness of breath due to right sided chest pain , does not have any cough recent dx of clot on rt chest wall indwelling port Patient is already anticoagulated on Eliquis pt reports pain is worsened with taking deep breath CT chest with contrast : 1. No pulmonary emboli identified. 2. Mild increase in multifocal nodular right lower lobe airspace opacity since CT of May 11, 2020. An infectious etiology is favored. However, a pneumonitis related to treatment could appear similar. A neoplastic etiology is also within the differential but considered less likely. A follow-up chest CT in 2 months to ensure resolution is recommended. 3. No change in a nodule along into aspect of the SVC since prior exam. This may be neoplastic. Adjacent small amount of suspected thrombus along the tip of the right internal jugular [id number]-h-Tnbx is also unchanged. This may reflect bland or tumor thrombus. 4. Increase in esophageal wall thickening. This favors esophagitis may be sonja atment related. Minimal adjacent mediastinal infiltration. No pneumomediastinum. pt will be admitted to Medical telemetry , empiric abx for possible community acquired pneumonia Principal Diagnosis Chest pain Pancytopenia due to chemo Small cell lung ca s/p chemo and radiation tx Pneumonia Discharge Exam Constitutional WD/WN, vitals as above + ill appearing Eyes + anicteric sclerae ENMT external ear and nose normal, oropharynx normal Neck trachea midline, no thyromegaly Respiratory no cough Auscultation: + diminished lung sounds; no crackles, no rales and no wheezes Cardiovascular RRR, no murmur, no edema Gastrointestinal (Abdomen) Percussion/Palpation: abdomen soft; abdomen nontender Musculoskeletal no cyanosis or clubbing, extremities motor strength 5/5 Skin no rashes, warm and dry Neurologic PERRL, EOMI, accommodation nl, no face palsy, no dysarthria Psychiatric A+Ox3, euthymic affect Discharge Data Allergies Allergy/AdvReac Type Severity Reaction Status Date / Time mushroom Allergy Severe anaphylaxis Verified 05/29/20 11:58 Penicillins Allergy Severe anaphylaxis, Verified 05/29/20 11:58 facial & throat swelling acetazolamide Allergy Intermediate rash, hives Verified 05/29/20 11:58 mold Allergy Unknown unknown Verified 05/29/20 11:58 reaction sumatriptan AdvReac Intermediate flushing, Verified 05/29/20 11:58 heart racing Consultations 05/29/20 14:32 ED Decision to Admit Stat 05/29/20 15:54 Consult Case Management - Discharge Planning Routine Ordered Studies 05/29/20 12:11 CT angio chest PE protocol Stat Hospital Course (1) Chest pain: presented with right sided chest pain hx of Lung ca s/p chemo CTA chest no PE possible musculoskeletal origin and or due to pneumonitis rt lower lobe airspace opacity increased since CT chest of 05/30 pain control , pt reports transient pain relief with IV morphine ,but effect dose not last longer added PRN Oxy codon abx tx for pneumonia as below (2) Pneumonia: CT finding as above no evidence of sepsis , no fever or chills treated with Empiric Abx for community acquired pneumonia : Rocephin and Doxycycline , abx changed to PO Doxycycline (3) Pancytopenia: due to chemo tx (4) Small cell lung cancer in adult: s/p chemo and radiation tx (5) Hypokalemia: due to poor po intake no report of nausea /vomiting or diarrhea replaced Full code DVT prophylaxis : on Eliquis Disposition 2 step exercise shows pt needs home 02 /2 L at rest and with ambulation , script given for home 02 discharged home today Total Time Total Time Spent Total Time Spent (In Minutes): 35 mins Total Time Includes: Discharge Planning and Medication Reconciliation Discharge Plan Discharge Items Patient Disposition: Home - Home Health Services Reason For Visit: PNEUMONIA Discharge Diagnosis: Chest pain Pancytopenia due to chemo Small cell lung ca s/p chemo and radiation tx Pneumonia Condition on Discharge: Good Activity: As commented below Activity Comment: as tolerated Non-emergency contact: Primary Care Provider Call non-emergency contact if: you have any medication questions Follow-up/Referrals: Hany Glaser MD [Primary Care Provider] - (Hospital follow up in 1 week , office will call with appointment ) Diet: Regular Addtl Attending Provider Instructions: Please take all medications as instructed on discharge list below. It is recommended that you follow-up with your primary care physician within 1 week of hospital discharge to ensure you are still doing well. Please call if you have any questions or problems. You can reach a [facility] hospitalist on duty at [facility] 24 hours a day by calling [phone] Pending Studies at Discharge: No Stand-Alone Forms: [facility], Smoking Cessation Medications and DC Order Prescriptions: New cyclobenzaprine 10 mg Tablet 10 mg PO TID PRN (Reason: muscle spasm) 30 Days Qty: 90 RF: 3 doxycycline hyclate 100 mg Capsule 100 mg PO BID 4 Days Qty: 8 RF: 0 Continued albuterol sulfate 90 mcg/actuation HFA aerosol inhaler 2 puff INH Q6H PRN (Reason: Shortness Of Breath Or Wheezing) Qty: 18 RF: 3 duloxetine 60 mg capsule,delayed release(DR/EC) 60 mg PO QAM RF: 0 omeprazole 20 mg capsule,delayed release(DR/EC) 20 mg PO BID 30 Days Qty: 60 RF: 3 magnesium oxide 400 mg (241.3 mg magnesium) Tablet 400 mg PO BID Qty: 60 RF: 0 atorvastatin 40 mg tablet 40 mg PO HS RF: 0 ondansetron 8 mg tablet,disintegrating 8 mg PO Q8H PRN (Reason: Nausea And Vomiting) RF: 0 fludrocortisone 0.1 mg tablet 0.1 mg PO BID RF: 0 oxycodone 10 mg tablet 10 mg PO Q6H PRN (Reason: Moderate Pain (Scale Score 5-6)) RF: 0 Eliquis 2.5 mg tablet 2.5 mg PO BID RF: 0 Anoro Ellipta 62.5-25 mcg/actuation blister with device 1 puffs INH QAM RF: 0 Discharge Orders: Discharge Order (Routine); Ordered 06/01/20 Ordered By: Evy Vargas Admission Data Admit Date/Time: 05/29/20 15:52 Attending Provider: Evy Vargas Admit Provider: Evy Vargas Primary Care Provider: Hany Glaser Other Providers: [facility],Home Healthcare ; Evy Varags Other Interventions: Discharge Summary Assessment (RN) Last Done: 06/01/20 16:46
== END 2020-06-01 18:46 | disposition home health service (06) ==
LOC: ED 11:10 → 2N 15:52 → INTOOBSV 15:52 → 2N 17:38

== ENCOUNTER 2020-07-02 19:06 | Inpatient (IN) ==
--- NOTE | 2020-07-02 19:10 | Emergency Department Note ---
Impression & Plan Chest pain, Hypotension, Elevated troponin, Dysarthria ED Provider Note BedsideNAME: BREN BELTRAN AGE: 64 SEX: F : 1955 ARRIVES VIA: Ambulance INFORMANT: [Patient][, ] ED PROVIDER(S): [Ottoniel Sheehan MD] Chief Complaint: Chest pain, TIA HPI: Patient does present with concerns for chest pains that she describes as right-sided beginning yesterday has been constant sharp and nonradiating. Patient denies any fevers or chills. The patient does have a history of small cell lung carcinoma does follow with Dr. Hebert. The patient reportedly had some intermittent confusion beginning in the early afternoon maybe around 330 and the patient states that she thought that she was having a TIA as she was having some word expression difficulty and forgetfulness. Patient denies any recent falls or trauma. The patient did not take anything for her chest pain she describes it as a 10 out of 10. Patient is a former smoker and is chronically on 2 L nasal cannula at all times. Patient denies any lower extremity swelling. She has been compliant with medications. Patient with known history of right small cell lung carcinoma status post 2 cycles of chemotherapy does follow with Dr. Hebert, history of CVA DVT on Florinef, and GERD. The patient did have a recent admission in mid June due to concerns for chest pains. Patient's most recent echo in January 2020 showed normal EF with grade 1 diastolic dysfunction with mild LVH. Patient does wear 2 L at all time. Had a negative CT PE study during her most recent admission. Patient is on Eliquis. ROS: See HPI for pertinent positives and negatives. A total of 10 systems were reviewed and otherwise negative. Past medical history: See below Surgical history: See below Social history: See below Physical Exam: GENERAL: Appears older than stated age, wearing glasses and a mask. Nasal cannula in place. EYE EXAM: Normal conjunctiva. PERRL, no anisocoria and EOM's grossly intact w/o pain. NECK: Supple, no nuchal rigidity, no adenopathy, non-tender. No signs of meningismus. Chest: Port in the right chest. LUNGS: Clear to auscultation. Normal chest wall mechanics. HEART: NSR, no MRG. ABDOMEN: Abdomen soft, non-tender, normo-active bowel sounds, no masses, no rebound or guarding. BACK: No CVA TTP. SKIN: No rashes and no bruising. UPPER EXTREMITIES: Upper extremities are grossly normal. LOWER EXTREMITIES: Grossly normal, no edema. NEURO EXAM: A&O x3, cranial nerves II-XII grossly intact with exception of slight dysarthria, moves all 4 extremities on command w/o issue. [Good finger to nose, no drift, no sensory deficits.] Differential diagnoses: Cardiac ischemia, aortic dissection, pulmonary embolism, pneumothorax, pneumonia, pericarditis, myocarditis, esophageal rupture, GERD, cholecystitis, pancreatitis, musculoskeletal, as well as other pathologies. Course: Patient was seen and evaluated the bedside. Full history physical exam was performed. EKG: Indication: Chest pain Imaging Studies: Radiology results as stated below per my review in the radiologist's interpretation: CT head/brain wo con CLINICAL HISTORY: 64 years-old Female with confusion, expressive aphasia. Acutely altered mental status TECHNIQUE: Multiple axial CT images of the head were obtained without contrast. A dose lowering technique was utilized adhering to the principles of ALARA. COMPARISON: CTA head and neck of same day, head CT 02/03/2020 FINDINGS: Motion degraded exam. No acute intracranial hemorrhage, midline shift, intracr anial mass, hydrocephalus, territorial ischemia or abnormal extra-axial collection. Age-related involutional changes. White matter hypodensities suggest chronic microvascular ischemic disease. Cerebral vascular calcifications. The calvarium is intact. Mastoid air cells are clear on the right. Trace left mastoid effusion. Mild polypoid mucosal thickening of the left maxillary sinus. Unremarkable soft tissues. Prior bilateral lens replacement. IMPRESSION: Motion degraded exam. No acute intracranial abnormality. ACT 112: Negative or not required by law. The above report was generated using voice recognition software. It may contain grammatical, syntax or spelling errors. Electronically signed by: Dannie Estrada M.D. 07/02/2020 8:52 PM Dictated: 07/02/202049 Transcribed: 07/02/202049 CT angio head w con, CT angio neck with con CLINICAL HISTORY: 64 years-old Female with confusion, expressive aphasia. Acute confusion with altered mental status COMPARISON STUDY: Head CT and CTA chest of same day, CTA head and neck 01/03/2020 TECHNIQUE: Following the IV administration of 119 mL of Optiray 320, CT angiogram of the head and neck was performed from the aortic arch to the skull apex. Images are reviewed in the axial, sagittal, and coronal planes. 3-D MIPS images are created and assessed. IV contrast was administered without complication. All measurements were calculated based on NASCET criteria. A dose lowering technique was utilized adhering to the principles of ALARA. CT DOSE: 2221.01 mGy.cm FINDINGS: Upper thoracic findings are better characterized on the CTA chest study of same day. Prominent upper mediastinal 9 mm lymph node. No pneumothorax. Emphysema. Patchy right apical opacities. Polypoid mucosal thickening of the left maxillary sinus. Prior bilateral lens repair. Degenerative changes of the cervical spine. Trace left mastoid effusion. Study is motion degraded. Atheromatous plaque of the thoracic aortic arch. Patency of the innominate and imaged subclavian arteries. Atheromatous plaque of the carotid bulbs and proximal internal carotid arteries. Approximately 70% stenosis of the proximal left ICA redemonstrated. There is approximately 50% stenosis of the proximal right ICA. Calcified plaque of the cavernous and supraclinoid segments of the internal carotid arteries redemonstrated. Progressive now moderate luminal narrowing of the M1 segment left middle cerebral artery. There are progressively worsened multifocal stenoses throughout the left middle cerebral artery which includes areas of high-grade narrowing at the trifurcation. The right middle cerebral artery and anterior cerebral arteries are patent. Cerebral venous sinuses are patent. Vertebral, basilar and posterior cerebral arteries are patent. No abnormal intracranial enhancement. IMPRESSION: 1. Motion degraded exam. 2. Multifocal stenoses of the left middle cerebral artery, worsened from comparison which includes high-grade stenosis at the trifurcation. 3. Unchanged 70% stenosis of the proximal left internal carotid artery. 4. 50% luminal narrowing of the proximal cervical segment right internal carotid artery. ACT 112: Negative or not required by law. The above report was generated using voice recognition software. It may contain grammatical, syntax or spelling errors. Electronically signed by: Dannie Estrada M.D. 07/02/2020 9:09 PM Dictated: 07/02/202052 Transcribed: 07/02/202052 CT angio chest dissec wo/w con HISTORY: 64 years-old Female R sided chest pain acute right-sided chest pain with shortness of breath COMPARISON: CTA chest 06/15/2020, PET CT 06/02/2020 TECHNIQUE: CTA of the chest was obtained both with and without the use of 119 mL Optiray 320. 3-D coronal and sagittal MIPS were obtained from the axial data s et. All measurements were obtained according to NASCET criteria. A dose lowering technique was used consistent with the principals of JUAN. FINDINGS: Limited exam secondary to upper extremity positioning. CTA: Right IJ [id number] catheter distal tip terminates in the mid SVC. The noncontrast scan demonstrates no intramural hematoma. The heart is mildly enlarged. Trace pericardial effusion. Mild coronary artery calcifications. Moderate atheromatous plaque the abdominal aorta without aneurysm or dissection. There is patency of the imaged great vessels. Ulcerative plaque of the descending thoracic aorta proximally. The segmental and subsegmental branches of the pulmonary artery are not well visualized secondary to respiratory motion artifact. No pulmonary emboli identified. CT CHEST: Unremarkable thyroid. Prominent paratracheal lymph nodes measuring up to 9 mm with unchanged right hilar and subcarinal adenopathy measuring up to 1.3 cm. Trace pleural effusions. The right pleural effusion has decreased in size from comparison. Unchanged 7 mm nodule of the right lung apex, image 274. Moderate emphysema with bronchitis. There are persistent nodular and irregular airspace opacities within the basal right lower lobe which are unchanged from comparison. There are progressive patchy groundglass densities within the right middle and lower lobes. Airspace opacities within the right upper lobe posteriorly are unchanged. Central airways are patent. Chronic esophageal wall thickening with periesophageal stranding. No acute process of the imaged upper abdomen. Unremarkable soft tissues. No acute fracture. Subacute mildly displaced mid sternal fracture is unchanged. T11 compression deformity redemonstrated. IMPRESSION: 1. Limited exam as above. 2. Cardiomegaly without pulmonary emboli 3. Trace pleural effusions, decreased in size on the right. 4. Mildly progressive groundglass opacities within the right lower and middle lobes suggestive of an infectious or inflammatory pneumonitis. 5. Unchanged irregular airspace opacities of the basal right lower lobe. 6. Emphysema with bronchitis. 7. Unchanged 7 mm solid nodule of the right lung apex. 8. Diffuse esophageal wall thickening redemonstrated. 9. Additional findings as above. ACT 112: Negative or not required by law. The above report was generated using voice recognition software. It may contain grammatical, syntax or spelling errors. Electronically signed by: Dannie Estrada M.D. 07/02/2020 9:22 PM Dictated: 07/02/202109 Transcribed: 07/02/202109 Cardiac monitoring: An order was placed for continuous cardiac monitoring. The monitor shows a rate of 95 with sinus rhythm. Procedures: Limited Point of Care Cardiac Ultrasound performed by me: Indication: Hypotension Findings: Limited echocardiography revealed no pericardial fluid. No B-lines. Slight IVC variation with inspiration. Wall motion appeared grossly normal. HR 80s. Impression: No obvious signs of volume overload MDM: Patient was seen due to concern for intermittent word forgetfulness and intermittent confusion. The patient is on Eliquis therapy. The patient does present approximately 4 hours since around general symptom onset. Patient is on Eliquis and is compliant with his medication not a TPA candidate. Blood work is obtained along with an EKG troponin chest x-ray CT of the head and CT angiography of the head and neck also ordered. The patient was hypotensive 70s over 40s. The patient other than the chest pain was otherwise awake alert and following commands. Given this I did complete a bedside ultrasound. No obvious pericardial effusion, IVC likely volume down, and no obvious B-lines in the bilateral lung bush. Patient also stated that she had taken her evening meds and is on Florinef. The patient was ordered additional IV fluids along with hydrocortisone. The patient's white count is normal with chronic and stable anemia with hemoglobin at 10.5. Patient did have low magnesium and potassium. Given concern for the lower blood pressure p.o. magnesium was ordered along with IV potassium. Patient did have positive troponin. EKG with no obvious ST changes. The patient is already anticoagulated. RSV flu and Covid negative. Patient did have CT of the head and CT angiography of the head neck and dissection study of the chest given the patient's hypotension and chest pain. CT angiography with cardiomegaly but without PE. The patient does have trace pleural effusions and possible pneumonitis. Emphysema and diffuse esophageal wall thickening also noted. The patient CT angiography is did show multifocal stenoses of the left MCA worsened from comparison with high-grade stenosis at the trifurcation. Otherwise unchanged. Given the patient's right-hand dominance with the left-sided changes I did speak with the on-call neurologist Dr. Villasenor. I also discussed with her that one of my concerns that may be her symptoms had been precipitated from her hypotension and that although the patient's initial blood pressure was normotensive this might have been a variant and the patient hypotension had caused the patient's chest pain as well as strokelike symptoms. She did recommend adding baby aspirin and an MRI with and without contrast. Upon reassessment the patient's blood pressure was continuing to improve. I did speak the on-call hospitalist and the patient was admitted to medicine service. Patient was admitted by Dr. Goldsmith. Critical Care: I have personally spent 45 minutes of critical care time in direct management of this patient. This includes bedside care, interpretation of diagnostic studies, and testing, discussion with consultants, patient, and family members, and other require inpatient management activities. This 45 minutes is in excess of all separately billable procedures. Past Med/Surg History Medical History (Updated 07/02/20 @ 23:44 by Ottoniel Sheehan MD) Acute kidney injury Acute shoulder pain Now a constant ache - no prescription meds needed Anxiety Chronic venous insufficiency follows with vascular (Dr. Carlson) CKD (chronic kidney disease), stage III COPD with emphysema Dentalgia Depression Hypertension Hypokalemia Kidney stones LAD (lymphadenopathy), mediastinal Major depressive disorder, recurrent episode with anxious distress Daughter from OD in 2016 Migraine Nausea & vomiting Neutropenia with fever Nicotine dependence Pancytopenia Polysubstance overdose Hx of 2017 Pulmonary nodule "7 mm RUL nodule, stable 09/25/15 - 09/16/16; repeat 6 mos" Surgical History History of bronchoscopy 10/30/2019 - with EBUS History of cataract surgery 2004 - bilateral History of section 1991 History of colonoscopy unsuccessful (poor bowel prep) History of cystoscopy 2007 - with stent History of dental surgery 02/2019 - Full upper teeth extracted S/P arthroscopy of left knee S/P arthroscopy of right knee Family History Grandmother (Maternal) , Passed in 80's of metastatic cancer (unknown primary) No problems noted. Mother , Passed age 93 of natural causes No problems noted. Father , Passed age 97 of natural causes No problems noted. Brother No problems noted. Daughter , Passed age 24 from Over Dose No problems noted. 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 [employer] Feels Safe at Home: Yes Childhood Exposure to Second-Hand Smoke: No caffeine: Yes (2 cups of coffee/day ) during the past year weight has: remained stable Dental Care, Regularly: Yes Assistive Devices: Cane and Oxygen - Continuous Allergies Allergies Allergy/AdvReac Type Severity Reaction Status Date / Time mushroom Allergy Severe anaphylaxis Verified 06/15/20 15:32 Penicillins Allergy Severe anaphylaxis, Verified 06/15/20 15:32 facial & throat swelling acetazolamide Allergy Intermediate rash, hives Verified 06/15/20 15:32 mold Allergy Unknown unknown Verified 06/15/20 15:32 reaction sumatriptan AdvReac Intermediate flushing, Verified 06/15/20 15:32 heart racing Home Meds Home Medications Medication Instructions Recorded Confirmed duloxetine 60 mg PO QAM 01/03/20 07/02/20 Anoro Ellipta 1 puffs INH QAM 05/29/20 07/02/20 Eliquis 2.5 mg PO BID 05/29/20 07/02/20 atorvastatin 40 mg PO HS 05/29/20 07/02/20 fludrocortisone 0.1 mg PO BID 05/29/20 07/02/20 ondansetron 8 mg PO Q8H PRN 05/29/20 07/02/20 acetaminophen [Tylenol Extra 1,000 mg PO Q6H PRN 06/06/20 07/02/20 Strength] cyclobenzaprine 10 mg PO TID PRN 07/02/20 07/02/20 gabapentin 100 mg PO TID 07/02/20 07/02/20 oxycodone 10 mg PO Q6H PRN 07/02/20 07/02/20 Previous Rx's Medication Instructions Recorded albuterol sulfate 90 mcg/actuation 2 puff INH Q6H PRN #18 gm 10/23/19 aerosol inhaler omeprazole 20 mg PO BID 30 Days #60 cap 01/27/20 magnesium oxide 400 mg PO BID #60 tab 02/07/20 Results & Data (ED) Vital Signs Vital Signs - 24 hr 07/02/20 19:16 07/02/20 19:30 07/02/20 19:31 Temperature 37.7 C H Temperature Source Oral Pulse Rate 93 H 95 H 94 H Pulse Rate from SpO2 Sensor 95 H 94 H Respiratory Rate 20 10 L 19 Respiratory Effort / Characteristics Non-Labored Spontaneous Respiratory Depth Normal Respiratory Pattern Regular Blood Pressure 113/97 72/51 L 76/57 L Blood Pressure [Left Arm] Blood Pressure Mean 102 58 63 Blood Pressure Mean [Left Arm] Blood Pressure Position Lying Blood Pressure Position [Left Arm] Pulse Oximetry 92 90 93 Oxygen Delivery Method Nasal Cannula Oxygen Flow Rate 2 Sepsis Recent Fever Within 48 Hours No Sepsis New/Unexplained Change in Mental Status No Sepsis Action Taken by Nursing No Action Required 07/02/20 19:33 07/02/20 19:41 07/02/20 19:45 Temperature Temperature Source Pulse Rate 96 H 93 H 90 Pulse Rate from SpO2 Sensor 97 H 93 H 90 Respiratory Rate 15 18 16 Respiratory Effort / Characteristics Respiratory Depth Respiratory Pattern Blood Pressure 74/50 L 76/56 L 72/60 L Blood Pressure [Left Arm] Blood Pressure Mean 58 62 64 Blood Pressure Mean [Left Arm] Blood Pressure Position Blood Pressure Position [Left Arm] Pulse Oximetry 93 92 94 Oxygen Delivery Method Oxygen Flow Rate Sepsis Recent Fever Within 48 Hours Sepsis New/Unexplained Change in Mental Status Sepsis Action Taken by Nursing 07/02/20 19:47 07/02/20 19:52 07/02/20 19:57 Temperature Temperature Source Pulse Rate 87 86 Pulse Rate from SpO2 Sensor 87 86 Respiratory Rate 26 H 16 Respiratory Effort / Characteristics Respiratory Depth Respiratory Pattern Blood Pressure 74/55 L 67/48 L Blood Pressure [Left Arm] 78/62 L Blood Pressure Mean 61 54 Blood Pressure Mean [Left Arm] 67 Blood Pressure Position Blood Pressure Position [Left Arm] Lying Pulse Oximetry 96 97 Oxygen Delivery Method Oxygen Flow Rate Sepsis Recent Fever Within 48 Hours Sepsis New/Unexplained Change in Mental Status Sepsis Action Taken by Nursing 07/02/20 20:36 07/02/20 20:45 07/02/20 21:00 Temperature Temperature Source Pulse Rate 82 84 Pulse Rate from SpO2 Sensor 82 84 Respiratory Rate 18 15 Respiratory Effort / Characteristics Respiratory Depth Respiratory Pattern Blood Pressure 86/50 L 88/61 L 83/63 L Blood Pressure [Left Arm] Blood Pressure Mean 62 70 69 Blood Pressure Mean [Left Arm] Blood Pressure Position Blood Pressure Position [Left Arm] Pulse Oximetry 95 95 Oxygen Delivery Method Oxygen Flow Rate Sepsis Recent Fever Within 48 Hours Sepsis New/Unexplained Change in Mental Status Sepsis Action Taken by Nursing 07/02/20 21:15 07/02/20 21:30 07/02/20 21:45 Temperature Temperature Source Pulse Rate 86 88 86 Pulse Rate from SpO2 Sensor 87 89 87 Respiratory Rate 19 20 16 Respiratory Effort / Characteristics Respiratory Depth Respiratory Pattern Blood Pressure 85/62 L 99/70 L 96/68 L Blood Pressure [Left Arm] Blood Pressure Mean 69 79 77 Blood Pressure Mean [Left Arm] Blood Pressure Position Blood Pressure Position [Left Arm] Pulse Oximetry 92 95 94 Oxygen Delivery Method Oxygen Flow Rate Sepsis Recent Fever Within 48 Hours Sepsis New/Unexplained Change in Mental Status Sepsis Action Taken by Nursing 07/02/20 22:00 07/02/20 22:15 07/02/20 23:18 Temperature Temperature Source Pulse Rate 83 82 78 Pulse Rate from SpO2 Sensor 83 82 78 Respiratory Rate 15 18 18 Respiratory Effort / Characteristics Respiratory Depth Respiratory Pattern Blood Pressure 93/63 L 87/63 L 110/70 Blood Pressure [Left Arm] Blood Pressure Mean 73 71 83 Blood Pressure Mean [Left Arm] Blood Pressure Position Blood Pressure Position [Left Arm] Pulse Oximetry 93 89 L 96 Oxygen Delivery Method Oxygen Flow Rate Sepsis Recent Fever Within 48 Hours Sepsis New/Unexplained Change in Mental Status Sepsis Action Taken by [facility] Medications Current Medication List: was personally reviewed by me Laboratory Data Attestation: I reviewed the patient's lab results. Result diagrams: 07/02/20 18:40 07/02/20 18:40 Lab Results 07/02/20 07/02/20 07/02/20 Range/Units 18:40 18:40 18:40 WBC 7.00 (4.8-10.8) K/uL RBC 3.03 L (4.2-5.4) M/uL Hgb 10.5 L (12.0-16.0) g/dL Hct 30.7 L (37-47) % MCV 101.3 H (80-100) fL MCH 34.7 H (25-34) pg MCHC 34.2 (32-36) g/dL RDW Std Deviation 53.5 H (36.4-46.3) fL RDW Coeff of Anjelica 14.4 (11.5-14.5) % Plt Count 116 L (130-400) K/uL MPV 11.0 H (7.4-10.4) fL Immature Gran % (Auto) 0.1 % Neut % (Auto) 79.5 % Lymph % (Auto) 11.7 % [place] % (Auto) 7.0 % Eos % (Auto) 1.7 % Baso % (Auto) 0.0 % Neut # (Auto) 5.56 (1.4-6.5) K/uL Lymph # (Auto) 0.82 L (1.2-3.4) K/uL [place] # (Auto) 0.49 (0.11-0.59) K/uL Eos # (Auto) 0.12 (0-0.5) K/uL Baso # (Auto) 0.00 (0-0.2) K/uL Immature Gran # (Auto) 0.01 (0.00-0.02) K/uL PT 10.5 (9.0-12.0) Seconds INR 1.0 (0.9-1.1) APTT 27.8 (21.0-31.0) Seconds PTT Ratio 1.1 Sodium 140 (136-145) mmol/L Potassium 2.8 L (3.5-5.1) mmol/L Chloride 103 (98-107) mmol/L Carbon Dioxide 30 (21-32) mmol/L Anion Gap 7.0 (3-11) BUN 8 (7-18) mg/dl Creatinine 0.83 (0.6-1.2) mg/dl Est Cr Clr Drug Dosing 75.0 ml/min Est GFR ( Amer) 86.4 Est GFR (Non-Af Amer) 74.5 BUN/Creatinine Ratio 9.3 L (10-20) Glucose 92 (70-99) mg/dl POC Glucose (70-99) mg/dl Calcium 8.6 (8.5-10.1) mg/dl Magnesium 1.5 L (1.8-2.4) mg/dl Total Bilirubin 0.4 (0.2-1) mg/dl AST 14 L (15-37) U/L ALT 16 (12-78) U/L Alkaline Phosphatase 104 (45-117) U/L Troponin I 0.818 H* (0-0.045) ng/ml Total Protein 6.8 (6.4-8.2) gm/dl Albumin 2.4 L (3.4-5.0) gm/dl Globulin 4.4 H (2.5-4.0) gm/dl Albumin/Globulin Ratio 0.5 L (0.9-2) COVID-19 Eval Order SARS-CoV-2 (PCR) (Negative) Influenza Type A (PCR) (Neg) Influenza Type B (PCR) (Neg) RSV (RT-PCR) (Neg) Blood Type Antibody Screen 07/02/20 07/02/20 07/02/20 Range/Units 19:25 19:47 20:39 WBC (4.8-10.8) K/uL RBC (4.2-5.4) M/uL Hgb (12.0-16.0) g/dL Hct (37-47) % MCV (80-100) fL MCH (25-34) pg MCHC (32-36) g/dL RDW Std Deviation (36.4-46.3) fL RDW Coeff of Anjelica (11.5-14.5) % Plt Count (130-400) K/uL MPV (7.4-10.4) fL Immature Gran % (Auto) % Neut % (Auto) % Lymph % (Auto) % [place] % (Auto) % Eos % (Auto) % Baso % (Auto) % Neut # (Auto) (1.4-6.5) K/uL Lymph # (Auto) (1.2-3.4) K/uL [place] # (Auto) (0.11-0.59) K/uL Eos # (Auto) (0-0.5) K/uL Baso # (Auto) (0-0.2) K/uL Immature Gran # (Auto) (0.00-0.02) K/uL PT (9.0-12.0) Seconds INR (0.9-1.1) APTT (21.0-31.0) Seconds PTT Ratio Sodium (136-145) mmol/L Potassium (3.5-5.1) mmol/L Chloride (98-107) mmol/L Carbon Dioxide (21-32) mmol/L Anion Gap (3-11) BUN (7-18) mg/dl Creatinine (0.6-1.2) mg/dl Est Cr Clr Drug Dosing ml/min Est GFR ( Amer) Est GFR (Non-Af Amer) BUN/Creatinine Ratio (10-20) Glucose (70-99) mg/dl POC Glucose 103 H (70-99) mg/dl Calcium (8.5-10.1) mg/dl Magnesium (1.8-2.4) mg/dl Total Bilirubin (0.2-1) mg/dl AST (15-37) U/L ALT (12-78) U/L Alkaline Phosphatase (45-117) U/L Troponin I (0-0.045) ng/ml Total Protein (6.4-8.2) gm/dl Albumin (3.4-5.0) gm/dl Globulin (2.5-4.0) gm/dl Albumin/Globulin Ratio (0.9-2) COVID-19 Eval Order CovFluRsv at [facility] SARS-CoV-2 (PCR) (Negative) Influenza Type A (PCR) (Neg) Influenza Type B (PCR) (Neg) RSV (RT-PCR) (Neg) Blood Type O Positive Antibody Screen NEGATIVE 07/02/20 Range/Units 20:39 WBC (4.8-10.8) K/uL RBC (4.2-5.4) M/uL Hgb (12.0-16.0) g/dL Hct (37-47) % MCV (80-100) fL MCH (25-34) pg MCHC (32-36) g/dL RDW Std Deviation (36.4-46.3) fL RDW Coeff of Anjelica (11.5-14.5) % Plt Count (130-400) K/uL MPV (7.4-10.4) fL Immature Gran % (Auto) % Neut % (Auto) % Lymph % (Auto) % [place] % (Auto) % Eos % (Auto) % Baso % (Auto) % Neut # (Auto) (1.4-6.5) K/uL Lymph # (Auto) (1.2-3.4) K/uL [place] # (Auto) (0.11-0.59) K/uL Eos # (Auto) (0-0.5) K/uL Baso # (Auto) (0-0.2) K/uL Immature Gran # (Auto) (0.00-0.02) K/uL PT (9.0-12.0) Seconds INR (0.9-1.1) APTT (21.0-31.0) Seconds PTT Ratio Sodium (136-145) mmol/L Potassium (3.5-5.1) mmol/L Chloride (98-107) mmol/L Carbon Dioxide (21-32) mmol/L Anion Gap (3-11) BUN (7-18) mg/dl Creatinine (0.6-1.2) mg/dl Est Cr Clr Drug Dosing ml/min Est GFR ( Amer) Est GFR (Non-Af Amer) BUN/Creatinine Ratio (10-20) Glucose (70-99) mg/dl POC Glucose (70-99) mg/dl Calcium (8.5-10.1) mg/dl Magnesium (1.8-2.4) mg/dl Total Bilirubin (0.2-1) mg/dl AST (15-37) U/L ALT (12-78) U/L Alkaline Phosphatase (45-117) U/L Troponin I (0-0.045) ng/ml Total Protein (6.4-8.2) gm/dl Albumin (3.4-5.0) gm/dl Globulin (2.5-4.0) gm/dl Albumin/Globulin Ratio (0.9-2) COVID-19 Eval Order SARS-CoV-2 (PCR) NEGATIVE (Negative) Influenza Type A (PCR) Negative (Neg) Influenza Type B (PCR) Negative (Neg) RSV (RT-PCR) Negative (Neg) Blood Type Antibody Screen Administered Medications Discontinued Medications Aspirin (Aspirin Chew 324 Mg) 81 mg PO NOW STA Stop: 07/02/20 22:05 Last Admin: 07/02/20 22:29 Dose: Not Given Documented by: [id number] Aspirin (Aspirin 81 Mg Chew) Confirm Administered Dose 81 mg .ROUTE .[facility] Stop: 07/02/20 22:27 Last Admin: 07/02/20 22:28 Dose: 81 mg Documented by: [id number] Fentanyl Citrate (Fentanyl Citrate 100 Mcg/2 Ml Vial) 25 mcg IV NOW STA Stop: 07/02/20 20:11 Last Admin: 07/02/20 20:41 Dose: 25 mcg Documented by: [id number] Gadobutrol (Gadobutrol 65ml Vial) 7.5 ml IV ONCE ONE Stop: 07/02/20 23:18 Last Admin: 07/02/20 23:18 Dose: 7.5 ml Documented by: [id number] Hydrocortisone Sodium Succinate (Hydrocortisone Sod Succinate 100 Mg/2 Ml Vial) 100 mg IV NOW STA Stop: 07/02/20 20:06 Last Admin: 07/02/20 20:36 Dose: 100 mg Documented by: [id number] Sodium Chloride (Nss 1000ml) 1,000 mls @ 999 mls/hr IV .Q1H1M ONE Stop: 07/02/20 20:37 Last Infusion: 07/02/20 20:41 Dose: 0 mls/hr Documented by: [id number] Admin: 07/02/20 19:40 Dose: 999 mls/hr Documented by: [id number] Sodium Chloride (Nss 1000ml) 500 mls @ 999 mls/hr IV .Q31M ONE Stop: 07/02/20 20:30 Last Infusion: 07/02/20 23:08 Dose: 0 mls/hr Documented by: [id number] Admin: 07/02/20 20:37 Dose: 999 mls/hr Documented by: [id number] Potassium Chloride (K Heladio / Wtr) 10 meq in 100 mls @ 100 mls/hr IV ONE ONE Stop: 07/02/20 21:04 Last Infusion: 07/02/20 23:08 Dose: 0 mls/hr Documented by: [id number] Admin: 07/02/20 20:37 Dose: 100 mls/hr Documented by: [id number] Ioversol (Optiray 320 125ml) 119 ml IV ONCE ONE Stop: 07/02/20 20:35 Last Admin: 07/02/20 20:34 Dose: 119 ml Documented by: [id number] Magnesium Oxide (Magnesium Oxide 400 Mg Tab) 800 mg PO NOW STA Stop: 07/02/20 20:06 Last Admin: 07/02/20 20:37 Dose: 800 mg Documented by: [id number] Potassium Chloride (Potassium Chloride Crtab 20 Meq Tabcr) 40 meq PO NOW STA Stop: 07/02/20 22:42 Last Admin: 07/02/20 23:37 Dose: Not Given Documented by: [id number] Discharge Plan Visit Data Chief Complaint: Confusion Stated Complaint: CONFUSION, WEAKNESS ED Provider: Ottoniel Sheehan Discharge Problem: Chest pain, Hypotension, Elevated troponin, Dysarthria Forms Stand Alone Forms: My [facility] [place] [employer] Prescriptions Prescriptions: No Action albuterol sulfate 90 mcg/actuation HFA aerosol inhaler 2 puff INH Q6H PRN (Reason: Shortness Of Breath Or Wheezing) Qty: 18 RF: 3 duloxetine 60 mg capsule,delayed release(DR/EC) 60 mg PO QAM RF: 0 omeprazole 20 mg capsule,delayed release(DR/EC) 20 mg PO BID 30 Days Qty: 60 RF: 3 magnesium oxide 400 mg (241.3 mg magnesium) Tablet 400 mg PO BID Qty: 60 RF: 0 atorvastatin 40 mg tablet 40 mg PO HS RF: 0 ondansetron 8 mg tablet,disintegrating 8 mg PO Q8H PRN (Reason: Nausea And Vomiting) RF: 0 fludrocortisone 0.1 mg tablet 0.1 mg PO BID RF: 0 Eliquis 2.5 mg tablet 2.5 mg PO BID RF: 0 Anoro Ellipta 62.5-25 mcg/actuation blister with device 1 puffs INH QAM RF: 0 acetaminophen [Tylenol Extra Strength] 500 mg Tablet 1,000 mg PO Q6H PRN (Reason: Fever Or Pain) RF: 0 gabapentin 100 mg capsule 100 mg PO TID RF: 0 oxycodone 10 mg tablet 10 mg PO Q6H PRN (Reason: Pain, Moderate) RF: 0 cyclobenzaprine 10 mg tablet 10 mg PO TID PRN (Reason: Muscle Spasm) RF: 0 Discharge Problem: Chest pain Qualifiers: Chest pain type: unspecified Qualified Code(s): R07.9 - Chest pain, unspecified Hypotension Qualifiers: Hypotension type: unspecified hypotension type Qualified Code(s): I95.9 - Hypotension, unspecified
[2020-07-02 19:28] LABS: Eosinophils # (auto) 0.12 K/uL (0-0.5); Eosinophils % (auto) 1.7 %; Hematocrit (blood only) 30.7 % (37-47); Hemoglobin 10.5 g/dL (12.0-16.0); Immature Granulocytes # (auto) 0.01 K/uL (0.00-0.02); Immature Granulocytes % (auto) 0.1 %; Lymphocytes # (auto) 0.82 K/uL (1.2-3.4); Lymphocytes % (auto) 11.7 %; Mean Corpuscular Hemoglobin 34.7 pg (25-34); Mean Corpuscular Hgb Conc 34.2 g/dL (32-36); Mean Corpuscular Volume 101.3 fL (80-100); Monocytes # (auto) 0.49 K/uL (0.11-0.59); Neutrophils # (auto) 5.56 K/uL (1.4-6.5); Neutrophils % (auto) 79.5 %; Platelet Count 116 K/uL (130-400); RDW Coefficient of Variation 14.4 % (11.5-14.5); RDW Standard Deviation 53.5 fL (36.4-46.3); Red Blood Count 3.03 M/uL (4.2-5.4)
[2020-07-02] MEDS ORDERED: SODIUM CHLORIDE 0.9% 1000ML 1,000 ML IV ONE (19:37)
[2020-07-02 19:39] LABS: Partial Thromboplastin Ratio 1.1; Partial Thromboplastin Time 27.8 Seconds (21.0-31.0); Prothrombin Time 10.5 Seconds (9.0-12.0)
[2020-07-02 19:52] LABS: Albumin Level 2.4 gm/dl (3.4-5.0); BUN Creatinine Ratio 9.3 (10-20); Calcium 8.6 mg/dl (8.5-10.1); Est GFR (African American) 86.4; Est GFR (Non-African American) 74.5; Magnesium 1.5 mg/dl (1.8-2.4); Potassium 2.8 mmol/L (3.5-5.1)
[2020-07-02] MEDS ORDERED: SODIUM CHLORIDE 0.9% 1000ML 500 ML IV ONE ×2 (20:00→22:04)
[2020-07-02 20:01] LABS: Albumin Globulin Ratio 0.5 (0.9-2); Bilirubin,Total 0.4 mg/dl (0.2-1); Total Protein 6.8 gm/dl (6.4-8.2)
[2020-07-02 20:04] LABS: Globulin 4.4 gm/dl (2.5-4.0); Troponin I 0.818 ng/ml (0-0.045)
[2020-07-02] MEDS ORDERED: HYDROCORTISONE SOD SUCCINATE 100 MG/2 ML VIAL IV STA (20:05)
[2020-07-02] MEDS ORDERED: POTASSIUM CHLORIDE / WTR 10 MEQ/100 ML PLCT IV ONE (20:05)
[2020-07-02] MEDS ORDERED: MAGNESIUM OXIDE 400 MG TAB PO STA (20:05)
[2020-07-02] MEDS ORDERED: fentaNYL citrate 100 MCG/2 ML VIAL IV STA (20:10)
[2020-07-02] MEDS ORDERED: OPTIRAY 320 125ml IV ONE (20:34)
--- NOTE | 2020-07-02 20:54 | CT Scan Report ---
CT head/brain wo con CLINICAL HISTORY: 64 years-old Female with confusion, expressive aphasia. Acutely altered mental sta tus TECHNIQUE: Multiple axial CT images of the head were obtained without contrast. A dose lowering tech nique was utilized adhering to the principles of ALARA. COMPARISON: CTA head and neck of same day, head CT 02/03/2020 FINDINGS: Motion degraded exam. No acute intracranial hemorrhage, midline shift, intracranial mass, hydrocephal us, territorial ischemia or abnormal extra-axial collection. Age-related involutional changes. White matter hypodensities suggest chronic microvascular ischemic disease. Cerebral vascular calcifications . The calvarium is intact. Mastoid air cells are clear on the right. Trace left mastoid effusion. Mild polypoid mucosal thickening of the left maxillary sinus. Unremarkable soft tissues. Prior bilateral lens replacement. IMPRESSION: Motion degraded exam. No acute intracranial abnormality. ACT 112: Negative or not required by law. The above report was generated using voice recognition software. It may contain grammatical, syntax o r spelling errors. Electronically signed by: Dannie Estrada M.D. 07/02/2020 8:52 PM
--- NOTE | 2020-07-02 21:11 | CT Scan Report ---
CT angio head w con, CT angio neck with con CLINICAL HISTORY: 64 years-old Female with confusion, expressive aphasia. Acute confusion with alt ered mental status COMPARISON STUDY: Head CT and CTA chest of same day, CTA head and neck 01/03/2020 TECHNIQUE: Following the IV administration of 119 mL of Optiray 320, CT angiogram of the head and nec k was performed from the aortic arch to the skull apex. Images are reviewed in the axial, sagittal, a nd coronal planes. 3-D MIPS images are created and assessed. IV contrast was administered without com plication. All measurements were calculated based on NASCET criteria. A dose lowering technique was utilized adhering to the principles of ALARA. CT DOSE: 2221.01 mGy.cm FINDINGS: Upper thoracic findings are better characterized on the CTA chest study of same day. Prominent upper mediastinal 9 mm lymph node. No pneumothorax. Emphysema. Patchy right apical opacities. Polypoid muco bridgett thickening of the left maxillary sinus. Prior bilateral lens repair. Degenerative changes of the cervical spine. Trace left mastoid effusion. Study is motion degraded. Atheromatous plaque of the thoracic aortic arch. Patency of the innominate and imaged subclavian arteries. Atheromatous plaque of the carotid bulbs and proximal internal caroti d arteries. Approximately 70% stenosis of the proximal left ICA redemonstrated. There is approximatel y 50% stenosis of the proximal right ICA. Calcified plaque of the cavernous and supraclinoid segments of the internal carotid arteries redemonstrated. Progressive now moderate luminal narrowing of the M 1 segment left middle cerebral artery. There are progressively worsened multifocal stenoses throughou t the left middle cerebral artery which includes areas of high-grade narrowing at the trifurcation. T he right middle cerebral artery and anterior cerebral arteries are patent. Cerebral venous sinuses ar e patent. Vertebral, basilar and posterior cerebral arteries are patent. No abnormal intracranial enh ancement. IMPRESSION: 1. Motion degraded exam. 2. Multifocal stenoses of the left middle cerebral artery, worsened from comparison which includes hi gh-grade stenosis at the trifurcation. 3. Unchanged 70% stenosis of the proximal left internal carotid artery. 4. 50% luminal narrowing of the proximal cervical segment right internal carotid artery. ACT 112: Negative or not required by law. The above report was generated using voice recognition software. It may contain grammatical, syntax o r spelling errors. Electronically signed by: Dannie Estrada M.D. 07/02/2020 9:09 PM
--- NOTE | 2020-07-02 21:23 | CT Scan Report ---
CT angio chest dissec wo/w con HISTORY: 64 years-old Female R sided chest pain acute right-sided chest pain with shortness of breat h COMPARISON: CTA chest 06/15/2020, PET CT 06/02/2020 TECHNIQUE: CTA of the chest was obtained both with and without the use of 119 mL Optiray 320. 3-D cor onal and sagittal MIPS were obtained from the axial data set. All measurements were obtained accordin g to NASCET criteria. A dose lowering technique was used consistent with the principals of JUAN. FINDINGS: Limited exam secondary to upper extremity positioning. CTA: Right IJ [id number] catheter distal tip terminates in the mid SVC. The noncontrast scan demonstrat es no intramural hematoma. The heart is mildly enlarged. Trace pericardial effusion. Mild coronary ar ernestine calcifications. Moderate atheromatous plaque the abdominal aorta without aneurysm or dissection. There is patency of the imaged great vessels. Ulcerative plaque of the descending thoracic aorta pro ximally. The segmental and subsegmental branches of the pulmonary artery are not well visualized seco ndary to respiratory motion artifact. No pulmonary emboli identified. CT CHEST: Unremarkable thyroid. Prominent paratracheal lymph nodes measuring up to 9 mm with unchanged right hi lar and subcarinal adenopathy measuring up to 1.3 cm. Trace pleural effusions. The right pleural effu billy has decreased in size from comparison. Unchanged 7 mm nodule of the right lung apex, image 274. Moderate emphysema with bronchitis. There are persistent nodular and irregular airspace opacities wit hin the basal right lower lobe which are unchanged from comparison. There are progressive patchy grou ndglass densities within the right middle and lower lobes. Airspace opacities within the right upper lobe posteriorly are unchanged. Central airways are patent. Chronic esophageal wall thickening with periesophageal stranding. No acute process of the imaged uppe r abdomen. Unremarkable soft tissues. No acute fracture. Subacute mildly displaced mid sternal fractu re is unchanged. T11 compression deformity redemonstrated. IMPRESSION: 1. Limited exam as above. 2. Cardiomegaly without pulmonary emboli 3. Trace pleural effusions, decreased in size on the right. 4. Mildly progressive groundglass opacities within the right lower and middle lobes suggestive of an infectious or inflammatory pneumonitis. 5. Unchanged irregular airspace opacities of the basal right lower lobe. 6. Emphysema with bronchitis. 7. Unchanged 7 mm solid nodule of the right lung apex. 8. Diffuse esophageal wall thickening redemonstrated. 9. Additional findings as above. ACT 112: Negative or not required by law. The above report was generated using voice recognition software. It may contain grammatical, syntax o r spelling errors. Electronically signed by: Dannie Estrada M.D. 07/02/2020 9:22 PM
[2020-07-02 21:31] LABS: Influenza A virus by PCR Negative (Neg); Influenza B virus by PCR Negative (Neg); RSV by PCR Negative (Neg); SARS CoV2 RNA(COVID-19) InHosp NEGATIVE (Negative)
[2020-07-02] MEDS ORDERED: ASPIRIN CHEW 324 MG PO STA (22:04)
[2020-07-02] MEDS ORDERED: ASPIRIN 81 MG CHEW ONE (22:26)
[2020-07-02] MEDS ORDERED: POTASSIUM CHLORIDE CRTAB 20 MEQ TABCR PO STA (22:41)
[2020-07-02] MEDS ORDERED: POTASSIUM CHLORIDE 40 MEQ in SODIUM CHLORIDE 0.9% 1000ML 1,000 ML IV ONE (22:43)
[2020-07-02] MEDS ORDERED: LACTATED RINGER'S 1,000 ML IV ONE (22:46)
[2020-07-02] MEDS ORDERED: GADOBUTROL 65ML VIAL IV ONE (23:17)
[2020-07-02] MEDS ORDERED: ERTAPENEM SODIUM 10 ML IV STA (23:30)
[2020-07-02] MEDS ORDERED: ASPIRIN 300 MG SUPP PR ONE (23:30)
--- NOTE | 2020-07-02 23:30 | History & Physical Report ---
Date of Service July 02, 2020 Assessment & Plan (1) Encephalopathy: Multifactorial : Acute on chronic hypotension, possible hypovolemia, hx hypotension on fludrocortisone Sepsis secondary to HCAP/ possible aspiration pneumonia Rule out recurrent CVA given aphasia/dysarthria symptoms hx small cell lung cancer sp chemoradiation, currently in remission hx PVD Hyperlipidemia on statin Rx mood disorder, at baseline chronic anemia, hemoglobin better than baseline likely secondary to hemoconc entration Steroid-induced hyperglycemia, probable DM2, hemoglobin A1c of 6.15 December 2019 Hypokalemia secondary to poor p.o. intake, mineralocorticoid Rx History RUE DVT on Eliquis Past tobacco abuse Medical telemetry IVF, replace electrolytes Continue fludrocortisone, may need dose titration if hypotension persistent Cultures, Ertapenem Aspiration precautions, swallow eval Neurochecks TTE, Brain MRI for additional stroke work-up Neurology consult Re: Transient aphasia/dysarthria (ER provider already in touch with Dr. Bella who recommends aspirin for secondary stroke prevention.) ISS BG goal [id number], update hemoglobin A1c PT OT eval DVT prophylaxis. [employer] Full code Text document was generated using [employer] voice recognition software. It may contain grammatical or spelling errors. Kindly contact undersigned for clarification of any documentation item in question. History of Present Illness Chief Complaint: Right-sided chest pain, cough as per patient Confusion, word finding difficulty, slurred speech as per records. Primary Care Provider: Hany Glaser MD History obtained from patient and records. Medical history significant for CVA, orthostatic hypotension on fludrocortisone Rx, small cell lung cancer sp chemoradiation, mood disorder, chronic anemia (baseline hemoglobin 9), RUE DVT on Eliquis, past tobacco abuse. Last confinement 3 weeks ago for right-sided chest wall pain attributed to musculoskeletal pathology. Patient noted worsening achy right-sided chest pain yesterday followed by junky cough symptoms with shortness of breath. Fair appetite as per patient. Patient not sure about aspiration. Patient noted by to be somewhat confused in early afternoon having trouble getting words out and later noted to have slurred speech. SBP 60s to 70s upon arrival at the ER. IVF bolus, hydrocortisone administered at the ER. SBP currently 110s. Improving speech as per patient. 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 Allergies Allergy/AdvReac Type Severity Reaction Status Date / Time mushroom Allergy Severe anaphylaxis Verified 06/15/20 15:32 Penicillins Allergy Severe anaphylaxis, Verified 06/15/20 15:32 facial & throat swelling acetazolamide Allergy Intermediate rash, hives Verified 06/15/20 15:32 mold Allergy Unknown unknown Verified 06/15/20 15:32 reaction sumatriptan AdvReac Intermediate flushing, Verified 06/15/20 15:32 heart racing Home Medications Medication Instructions Recorded Confirmed Type albuterol sulfate 90 mcg/actuation 2 puff INH Q6H PRN #18 gm 10/23/19 07/02/20 Rx aerosol inhaler duloxetine 60 mg PO QAM 01/03/20 07/02/20 History omeprazole 20 mg PO BID 30 Days #60 cap 01/27/20 07/02/20 Rx magnesium oxide 400 mg PO BID #60 tab 02/07/20 07/02/20 Rx Anoro Ellipta 1 puffs INH QAM 05/29/20 07/02/20 History Eliquis 2.5 mg PO BID 05/29/20 07/02/20 History atorvastatin 40 mg PO HS 05/29/20 07/02/20 History fludrocortisone 0.1 mg PO BID 05/29/20 07/02/20 History ondansetron 8 mg PO Q8H PRN 05/29/20 07/02/20 History acetaminophen [Tylenol Extra 1,000 mg PO Q6H PRN 06/06/20 07/02/20 History Strength] cyclobenzaprine 10 mg PO TID PRN 07/02/20 07/02/20 History gabapentin 100 mg PO TID 07/02/20 07/02/20 History oxycodone 10 mg PO Q6H PRN 07/02/20 07/02/20 History Past Med/Surg History Medical History (Updated 07/03/20 @ 05:59 by Jeo Goldsmith MD) Acute kidney injury Acute shoulder pain Now a constant ache - no prescription meds needed Anxiety Chronic venous insufficiency follows with vascular (Dr. Carlson) CKD (chronic kidney disease), stage III COPD with emphysema Dentalgia Depression Hypertension Hypokalemia Kidney stones LAD (lymphadenopathy), mediastinal Major depressive disorder, recurrent episode with anxious distress Daughter from OD in 2016 Migraine Nausea & vomiting Neutropenia with fever Nicotine dependence Pancytopenia Polysubstance overdose Hx of 2017 Pulmonary nodule "7 mm RUL nodule, stable 09/25/15 - 09/16/16; repeat 6 mos" Surgical History History of bronchoscopy 10/30/2019 - with EBUS History of cataract surgery 2004 - bilateral History of section 1991 History of colonoscopy unsuccessful (poor bowel prep) History of cystoscopy 2007 - with stent History of dental surgery 02/2019 - Full upper teeth extracted S/P arthroscopy of left knee S/P arthroscopy of right knee Family History Grandmother (Maternal) , Passed in 80's of metastatic cancer (unknown primary) No problems noted. Mother , Passed age 93 of natural causes No problems noted. Father , Passed age 97 of natural causes No problems noted. Brother No problems noted. Daughter , Passed age 24 from Over Dose No problems noted. 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 [employer] Other Information That Helps Us Care for You: No Feels Safe at Home: Yes Safety Concerns: Feels Safe At This Time Childhood Exposure to Second-Hand Smoke: No caffeine: Yes (2 cups of coffee/day ) during the past year weight has: remained stable Dental Care, Regularly: Yes Assistive Devices: Denture - Upper, Denture - Lower, Glasses and Oxygen - Continuous Review of Systems Review of Systems: As per HPI, all 10 systems reviewed, all other ROS negative Physical Exam Physical Exam: GENERAL: Slightly uncomfortable, dysarthric, no respiratory distress SKIN: Pallor, warm HEENT: Pale palpebral conjunctivae, no ptosis, dry buccal mucosa NECK : Supple, no tenderness CHEST : CTA, left chest wall tenderness HEART : RRR, no obvious murmurs ABDOMEN: Some distention, nontender EXTREMITIES : No LE swelling/tenderness, no other conspicuous deformities noted NEUROLOGIC : Coherent, no facial asymmetry, dysarthric, gait and stance not assessed Results & Data Results & Data ([facility]) Vital Signs (Past 12 Hours) Vital Signs Temp Pulse Resp BP BP Pulse Ox 07/02/20 23:18 78 18 110/70 96 07/02/20 22:15 82 18 87/63 L 89 L 07/02/20 22:00 83 15 93/63 L 93 07/02/20 21:45 86 16 96/68 L 94 07/02/20 21:30 88 20 99/70 L 95 07/02/20 21:15 86 19 85/62 L 92 07/02/20 21:00 84 15 83/63 L 95 07/02/20 20:45 82 18 88/61 L 95 07/02/20 20:36 86/50 L 07/02/20 19:57 78/62 L 07/02/20 19:52 86 16 67/48 L 97 07/02/20 19:47 87 26 H 74/55 L 96 07/02/20 19:45 90 16 72/60 L 94 07/02/20 19:41 93 H 18 76/56 L 92 07/02/20 19:33 96 H 15 74/50 L 93 07/02/20 19:31 94 H 19 76/57 L 93 07/02/20 19:30 95 H 10 L 72/51 L 90 07/02/20 19:16 37.7 C H 93 H 20 113/97 92 Laboratory Results Laboratory Results WBC 7.00 K/uL (4.8-10.8) 07/02/20 18:40 RBC 3.03 M/uL (4.2-5.4) L 07/02/20 18:40 Hgb 10.5 g/dL (12.0-16.0) L 07/02/20 18:40 Hct 30.7 % (37-47) L 07/02/20 18:40 MCV 101.3 fL (80-100) H 07/02/20 18:40 MCH 34.7 pg (25-34) H 07/02/20 18:40 MCHC 34.2 g/dL (32-36) 07/02/20 18:40 RDW Std Deviation 53.5 fL (36.4-46.3) H 07/02/20 18:40 RDW Coeff of Anjelica 14.4 % (11.5-14.5) 07/02/20 18:40 Plt Count 116 K/uL (130-400) L 07/02/20 18:40 MPV 11.0 fL (7.4-10.4) H 07/02/20 18:40 Immature Gran % (Auto) 0.1 % 07/02/20 18:40 Neut % (Auto) 79.5 % 07/02/20 18:40 Lymph % (Auto) 11.7 % 07/02/20 18:40 [place] % (Auto) 7.0 % 07/02/20 18:40 Eos % (Auto) 1.7 % 07/02/20 18:40 Baso % (Auto) 0.0 % 07/02/20 18:40 Neut # (Auto) 5.56 K/uL (1.4-6.5) 07/02/20 18:40 Lymph # (Auto) 0.82 K/uL (1.2-3.4) L 07/02/20 18:40 [place] # (Auto) 0.49 K/uL (0.11-0.59) 07/02/20 18:40 Eos # (Auto) 0.12 K/uL (0-0.5) 07/02/20 18:40 Baso # (Auto) 0.00 K/uL (0-0.2) 07/02/20 18:40 Immature Gran # (Auto) 0.01 K/uL (0.00-0.02) 07/02/20 18:40 PT 10.5 Seconds (9.0-12.0) 07/02/20 18:40 INR 1.0 (0.9-1.1) 07/02/20 18:40 APTT 27.8 Seconds (21.0-31.0) 07/02/20 18:40 PTT Ratio 1.1 07/02/20 18:40 Sodium 140 mmol/L (136-145) 07/02/20 18:40 Potassium 2.8 mmol/L (3.5-5.1) L 07/02/20 18:40 Chloride 103 mmol/L (98-107) 07/02/20 18:40 Carbon Dioxide 30 mmol/L (21-32) 07/02/20 18:40 Anion Gap 7.0 (3-11) 07/02/20 18:40 BUN 8 mg/dl (7-18) 07/02/20 18:40 Creatinine 0.83 mg/dl (0.6-1.2) 07/02/20 18:40 Est Cr Clr Drug Dosing 75.0 ml/min 07/02/20 18:40 Est GFR ( Amer) 86.4 07/02/20 18:40 Est GFR (Non-Af Amer) 74.5 07/02/20 18:40 BUN/Creatinine Ratio 9.3 (10-20) L 07/02/20 18:40 Glucose 92 mg/dl (70-99) 07/02/20 18:40 POC Glucose 103 mg/dl (70-99) H 07/02/20 19:47 Calcium 8.6 mg/dl (8.5-10.1) 07/02/20 18:40 Magnesium 1.5 mg/dl (1.8-2.4) L 07/02/20 18:40 Total Bilirubin 0.4 mg/dl (0.2-1) 07/02/20 18:40 AST 14 U/L (15-37) L 07/02/20 18:40 ALT 16 U/L (12-78) 07/02/20 18:40 Alkaline Phosphatase 104 U/L (45-117) 07/02/20 18:40 Troponin I 0.818 ng/ml (0-0.045) H* 07/02/20 18:40 Total Protein 6.8 gm/dl (6.4-8.2) 07/02/20 18:40 Albumin 2.4 gm/dl (3.4-5.0) L 07/02/20 18:40 Globulin 4.4 gm/dl (2.5-4.0) H 07/02/20 18:40 Albumin/Globulin Ratio 0.5 (0.9-2) L 07/02/20 18:40 COVID-19 Eval Order [facility]Rsv at [facility] 07/02/20 20:39 SARS-CoV-2 (PCR) NEGATIVE (Negative) 07/02/20 20:39 Influenza Type A (PCR) Negative (Neg) 07/02/20 20:39 Influenza Type B (PCR) Negative (Neg) 07/02/20 20:39 RSV (RT-PCR) Negative (Neg) 07/02/20 20:39 Blood Type O Positive 07/02/20 19:25 Antibody Screen NEGATIVE 07/02/20 19:[address] head: Motion degraded exam. No acute intracranial abnormality. CTA head neck: 1. Motion degraded exam. 2. Multifocal stenoses of the left middle cerebral artery, worsened from comparison which includes high-grade stenosis at the trifurcation. 3. Unchanged 70% stenosis of the proximal left internal carotid artery. 4. 50% luminal narrowing of the proximal cervical segment right internal carotid artery. Chest CTA: 1. Limited exam as above. 2. Cardiomegaly without pulmonary emboli 3. Trace pleural effusions, decreased in size on the right. 4. Mildly progressive groundglass opacities within the right lower and middle lobes suggestive of an infectious or inflammatory pneumonitis. 5. Unchanged irregular airspace opacities of the basal right lower lobe. 6. Emphysema with bronchitis. 7. Unchanged 7 mm solid nodule of the right lung apex. 8. Diffuse esophageal wall thickening redemonstrated. EKG as per my interpretation:Rate 100, NSR, normal axis, T wave abnormalities inferior leads
[2020-07-03] MEDS: LIDOCAINE 5% 1 PATCH TD SCH ×2 (00:06→22:09)
[2020-07-03] MEDS ORDERED: PHARMACIST DISCHARGE MED REC CONSULT PRN (01:54)
[2020-07-03] MEDS ORDERED: LACTATED RINGER'S 1,000 ML IV ONE (01:54)
[2020-07-03] MEDS ORDERED: CYCLOBENZAPRINE HCL 10 MG TAB PO PRN (01:54)
[2020-07-03] MEDS: MAGNESIUM SULFATE / D5W 1 GM/100 ML BAG IV SCH ×2 (02:25→04:20)
[2020-07-03] MEDS: POTASSIUM CHLORIDE / WTR 10 MEQ/100 ML PLCT IV SCH ×6 (02:25→08:49)
[2020-07-03] MEDS ORDERED: ERTAPENEM CONSULT ACTIVE PRN (04:01)
[2020-07-03] MEDS: oxyCODONE HCL IR 5 MG TAB (IMMEDIATE RELEASE) PO PRN ×3 (04:18→17:51)
[2020-07-03] MEDS ORDERED: CARBOHYDRATES FOR HYPOGLYCEMIA PO PRN (06:06)
[2020-07-03] MEDS ORDERED: GLUCOSE 10 TABS/TUBE PO PRN (06:06)
[2020-07-03] MEDS ORDERED: DEXTROSE 50% 50 ML SYRINGE IV PRN (06:06)
[2020-07-03] MEDS ORDERED: GLUCOSE 40% GEL 15 GM TUBE PO PRN (06:06)
[2020-07-03] MEDS ORDERED: GLUCAGON FOR INJ 1 MG VIAL SQ PRN (06:06)
--- NOTE | 2020-07-03 07:29 | Magnetic Resonance Report ---
Brain MRI WITH AND WITHOUT CONTRAST HISTORY: dysarthria, word finding difficulty TECHNIQUE: Multiplanar multisequence MRI of the brain was performed both before and after the intrave nous administration of contrast. COMPARISON STUDY: None. FINDINGS: There are no areas of restricted diffusion to suggest acute infarction. The midline structu res are intact. A 1.7 cm retention cyst within the left maxillary sinus. A few opacified left mastoid air cells. A few punctate foci of T2 hyperintensity seen within the periventricular white matter. Th hai are considered to be within the range of normal limits given the patient's age. There is minimal atrophic changes. Bilateral lens replacement. The ventricles and sulci are within normal limits for a ge. There is no mass, hematoma, midline shift. The major vascular flow-voids at the skull base are we ll maintained. Postcontrast sequences show no areas of abnormal enhancement. IMPRESSION: No acute intracranial abnormality. ACT 112: Negative or not required by law. Electronically signed by: Avni Gongora M.D. 07/03/2020 7:28 AM
--- NOTE | 2020-07-03 07:53 | Hospitalist Progress Note ---
Date of Service July 03, 2020 Assessment & Plan (1) Encephalopathy: Multifactorial : Acute on chronic hypotension, possible hypovolemia, hx hypotension on fludrocortisone Sepsis secondary to HCAP/ possible aspiration pneumonia Rule out recurrent CVA given aphasia/dysarthria symptoms hx small cell lung cancer sp chemoradiation, currently in remission hx PVD Hyperlipidemia on statin Rx mood disorder, at baseline chronic anemia, hemoglobin better than baseline likely secondary to hemocon centration Steroid-induced hyperglycemia, probable DM2, hemoglobin A1c of 6.15 December 2019 Hypokalemia secondary to poor p.o. intake, mineralocorticoid Rx History RUE DVT on Eliquis Past tobacco abuse Medical telemetry IVF, replace electrolytes Continue fludrocortisone, may need dose titration if hypotension persistent Cultures, Ertapenem Aspiration precautions, swallow eval Neuro Checks TTE for additional stroke work-up Neurology consult Re: Transient aphasia/dysarthria (ER provider already in touch with Dr. Bella who recommends aspirin for secondary stroke prevention.) ISS BG goal [id number], update hemoglobin A1c PT/OT eval DVT prophylaxis. Eliquis Full code Labs Checked ROS-No Headache, No Visual Changes, No Nausea, No Vomiting, No Fever, No Chills, No Neck Pain or Stiffness, +R sided Chest Pain, No Palpitations, No SOB, No ALBRIGHT, No Cough, No Sputum, No Wheezing, No Abdominal Pain, No Diarrhea, No Hematemesis, No Hemoptysis, No Unexpected Weight Loss, No Flank pain, No Melena, No Hematochezia, No Frequency, No Urgency, No Burning, No Hematuria, No Rashes, No Diaphoresis. Appetite is Normal Physical Exam Gen-AAO x 3, NAD, Afebrile Head-NCAT, EOMI, PERRLA, Anicteric Sclera, No Posterior Pharyngeal Erythema Neck-Supple, No JVD, No Thyromegaly, No Masses, No LAD, No Bruits Lungs-Clear to Auscultation Bilaterally, No Rales, No Rhonchi, No Wheezing, No Crepitus Chest-+CP reproducible, +Port Right Upper Chest, No S4, +S1, +S2, No S3, No Murmurs, No Rubs, No Gallops, No Ectopy Abdomen-Soft, Bowel Sounds Present, Non Tender, Non Distended, No Hepatomegaly, No Splenomegaly, No Palpable Masses, No Rebound, No Rigidity, No Guarding Musculoskeletal-Full Range of Motion Bilaterally, No CVAT Extremities-No Cyanosis, No Clubbing, No Edema Nuero-Cranial Nerves II-XII grossly intact, Motor WNL, DTRs WNL, Strength WNL, Non Focal Psych-Normal Mood Admission and Anticipated Discharge Date Admission Date: July 02, 2020 Results & Data Results & Data ([facility]) Vital Signs (Past 12 Hours) Vital Signs Temp Pulse Pulse Resp BP BP Pulse Ox 07/03/20 07:33 64 07/03/20 07:00 36.6 C 64 20 104/68 94 07/03/20 02:38 85 07/03/20 02:04 36.5 C 77 16 115/77 95 07/03/20 01:01 75 21 117/69 94 07/03/20 00:45 75 20 88/63 L 95 07/03/20 00:30 72 14 107/68 95 07/03/20 00:15 72 14 113/76 95 07/03/20 00:00 76 13 112/75 93 07/02/20 23:45 78 15 96/69 L 94 07/02/20 23:30 80 27 H 124/66 94 07/02/20 23:18 78 18 110/70 96 07/02/20 22:15 82 18 87/63 L 89 L 07/02/20 22:00 83 15 93/63 L 93 07/02/20 21:45 86 16 96/68 L 94 07/02/20 21:30 88 20 99/70 L 95 07/02/20 21:15 86 19 85/62 L 92 07/02/20 21:00 84 15 83/63 L 95 07/02/20 20:45 82 18 88/61 L 95 07/02/20 20:36 86/50 L 07/02/20 19:57 78/62 L 07/02/20 19:52 86 16 67/48 L 97 07/02/20 19:47 87 26 H 74/55 L 96
[2020-07-03] MEDS: ACETAMINOPHEN 325 MG TAB PO PRN (08:01)
[2020-07-03] MEDS: UMECLIDINIUM/VILANTEROL 62.5/25MCG 7 PUFFS/INHALER INH SCH (08:02)
[2020-07-03] MEDS: DULoxetine HCL 60 MG CAP PO SCH (08:04)
[2020-07-03] MEDS: APIXABAN 2.5 MG TAB PO SCH ×2 (08:04→22:08)
[2020-07-03] MEDS: PANTOprazole 40 MG TAB PO SCH ×2 (08:04→22:09)
[2020-07-03] MEDS: ASPIRIN 81 MG ECTAB PO SCH (08:04)
[2020-07-03] MEDS: FLUDROCORTISONE ACETATE 0.1 MG TAB PO SCH ×2 (08:04→22:08)
[2020-07-03] MEDS: GABAPENTIN 100 MG CAP PO SCH ×3 (08:04→22:09)
[2020-07-03] MEDS: INSULIN ASPART 100 UNITS/ML 3 ML PEN SC SCH ×4 (08:48→22:09)
[2020-07-03 08:58] LABS: Eosinophils # (auto) 0.01 K/uL (0-0.5); Eosinophils % (auto) 0.2 %; Hematocrit (blood only) 27.7 % (37-47); Hemoglobin 10.1 g/dL (12.0-16.0); Immature Granulocytes # (auto) 0.01 K/uL (0.00-0.02); Immature Granulocytes % (auto) 0.2 %; Lymphocytes # (auto) 0.37 K/uL (1.2-3.4); Lymphocytes % (auto) 6.9 %; Mean Corpuscular Hemoglobin 36.7 pg (25-34); Mean Corpuscular Hgb Conc 36.5 g/dL (32-36); Mean Corpuscular Volume 100.7 fL (80-100); Mean Platelet Volume 10.9 fL (7.4-10.4); Monocytes # (auto) 0.29 K/uL (0.11-0.59); Monocytes % (auto) 5.4 %; Neutrophils # (auto) 4.68 K/uL (1.4-6.5); Neutrophils % (auto) 87.3 %; Platelet Count 107 K/uL (130-400); RDW Standard Deviation 51.6 fL (36.4-46.3); Red Blood Count 2.75 M/uL (4.2-5.4); White Blood Count 5.36 K/uL (4.8-10.8)
[2020-07-03 09:21] LABS: BUN Creatinine Ratio 10.6 (10-20); Calcium 8.5 mg/dl (8.5-10.1); Creatinine Clr Calc Pharmacy 110.3 ml/min
[2020-07-03 09:27] LABS: Estimated Average Glucose 108 mg/dl; Hemoglobin A1C 5.4 % (4.5-5.6)
[2020-07-03] MEDS ORDERED: OPTIRAY 320 125ml IV ONE (11:46)
[2020-07-03] MEDS: PROMETHAZINE HCL 6.25 MG in SODIUM CHLORIDE 0.9% 50 ML IV PRN ×3 (13:06→22:03)
--- NOTE | 2020-07-03 13:19 | Electrocardiogram Report ---
Test Reason : Blood Pressure : / mmHG Vent. Rate : 100 BPM Atrial Rate : 100 BPM P-R Int : 136 ms QRS Dur : 064 ms QT Int : 332 ms P-R-T Axes : 041 061 068 degrees QTc Int : 428 ms Normal sinus rhythm Nonspecific ST abnormality Abnormal ECG When compared with ECG of 15-JUN-2020 18:03, No significant change was found Confirmed by James Eldridge ([id number]) on 07/03/2020 1:18:56 PM Referred By: REFERRED SELF Confirmed By:James Eldridge
--- NOTE | 2020-07-03 13:20 | Electrocardiogram Report ---
Test Reason : Blood Pressure : / mmHG Vent. Rate : 081 BPM Atrial Rate : 081 BPM P-R Int : 146 ms QRS Dur : 068 ms QT Int : 374 ms P-R-T Axes : 032 070 078 degrees QTc Int : 434 ms Normal sinus rhythm Nonspecific ST abnormality Abnormal ECG When compared with ECG of 02-JUL-2020 19:13, (unconfirmed) No significant change was found Confirmed by James Eldridge ([id number]) on 07/03/2020 1:20:01 PM Referred By: REFERRED SELF Confirmed By:James Eldridge
--- NOTE | 2020-07-03 13:42 | Progress Notes ---
DATE: 07/03/2020 REASON FOR CONSULTATION: Assess etiology of episodes. HISTORY OF PRESENT ILLNESS: The patient is a 64-year-old with a relatively recent diagnosis and treatment for small cell lung cancer. On this background, she was in her usual state. She was seated and noted the sudden onset of word finding difficulty, which persisted for 2 or 3 hours. Her receptive language was intact and she was not dysarthric. This was not associated with a headache, facial droop, change in speech per se. There was no unilateral weakness or numbness. 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 The patient reports that at that time she was not lightheaded. When asked to describe her general lightheadedness, she says it is the dizziness, which is more like a spinning, but which is postural. The symptoms resolved entirely. She has had gradual but significant weight loss. She has not had any recent head or neck trauma. Sometime between December and this admission, she had a DVT of the right upper extremity and is on a DOAC, Eliquis. She has been compliant with that, and is on no antiplatelet therapy. Her last chemotherapy or radiation was sometime in December. Approximately December, the patient had a similar episode of language dysfunction. At that time, I believe she was neither on antiplatelet therapy nor Eliquis. CTA of the carotid showed a 70% stenosis of the left internal carotid and some moderate stenosis of the left MCA with some segment occlusions of the sylvian branches of the left middle cerebral artery. An MRI of the brain was not performed at that time and at that point, she was placed on Plavix and aspirin. Prior to that event, there has never been any history of transient ischemic attack or stroke. The patient is on a statin. She is on Florinef for orthostatic hypotension. Her CT of the head, noncontrast, which I have reviewed. DICTATION ENDS HERE
--- NOTE | 2020-07-03 13:58 | Progress Notes ---
DATE: 07/03/2020 ADDENDUM On admission, CT of the head noncontrast was unremarkable. CTA of the head and neck, which I have reviewed, shows an unchanged 70% stenosis of the proximal left internal carotid artery, 50% luminal narrowing of the proximal cervical right internal carotid artery, worsening multifocal stenosis of the left middle cerebral artery, which includes high-grade stenosis of the trifurcation of the left MCA. MRI of the brain, which I have reviewed as well as unremarkable showing no enhancing lesion. No acute or subacute infarction. LABORATORY DATA: Notable for an H and H of 10/30 and MCV of 101, platelet count of 116. PT, PTT were normal. Potassium 2.8, BUN and creatinine 8/0.83, glucose 92, magnesium 1.5. Troponin 0.73, albumin 2.4. The patient's echo has been performed, but not interpreted. Electrocardiogram showed normal sinus rhythm. The patient was noted to be hypotensive in the Emergency Room. PAST MEDICAL HISTORY: Small cell lung cancer, status post chemoradiation, currently in remission, peripheral vascular disease, hyperlipidemia, mood disorder, chronic anemia, steroid-induced hyperglycemia, probable type 2 diabetes, right upper extremity deep venous thrombosis prior transient ischemic attack. PAST SURGICAL HISTORY: D and C on the right, cataract knee surgery, , vascular procedure. FAMILY HISTORY: Breast cancer, heart disease, mental disorder. Other family history mother of natural causes. Father of natural causes. No family history of stroke. Daughter from an overdose at 24. SOCIAL HISTORY: Past tobacco use, occasional alcohol. ALLERGIES: MUSHROOM, PENICILLIN, ACETAZOLAMIDE, MOLD AND SUMATRIPTAN. HOME MEDICATIONS: Were albuterol, duloxetine, omeprazole, magnesium, Anoro Ellipta, Eliquis, atorvastatin, fludrocortisone, Zofran, Tylenol, cyclobenzaprine, gabapentin, oxycodone. REVIEW OF SYSTEMS: In addition to above, notable that the patient has high arched feet and has noted a tendency to slap her feet over the last several years. This preceded her diagnosis of cancer and chemotherapy. She denies any numbness, tingling in her feet. Father had TMJ. PHYSICAL EXAMINATION: CURRENT VITAL SIGNS: BP 125/80, pulse 70, respiratory rate 18, temperature 36.6, 97% sat on 2 liters. GENERAL: The patient is awake and alert, oriented x3, no aphasia, repetitions, 3-step commands, naming were normal. NECK: There are no carotid bruits. HEART: No heart murmurs. Heart is regular rate and rhythm. NEUROLOGIC: The patient is in moderate distress. There is some tenderness diffusely over her right ribs anteriorly and posteriorly. Otherwise, there is no spinal tenderness. Right pupil is postsurgical. Optic nerves are difficult to visualize bilaterally. There is normal visual bush, motility, facial sensation, symmetry. Tongue is midline. Motor: There may be some mild atrophy of the tibialis anteriors bilaterally. Feet are high arched. Otherwise, strength is full. There is no drift. Normal rapid alternating movements. Symmetric reflexes, mildly reduced ankle jerks, downgoing toes. Dfelcj-gi-[id number] and jiti-[id number] is normal. Vibration is present at the right great toe on the left ankle. There is an ankle level to temperature. Gait was not tested. IMPRESSION: 1. Recurrent transient ischemic attack, left middle cerebral artery distribution. Unclear if the etiology is hypoperfusion from hypotension versus primary ischemia, hypoxemia or dysrhythmia. 2. The patient appears to have Gyshgys-Vtcdr-Fxzyp disease and has a family history of the same. PLAN: Addition of aspirin. Continue Eliquis. Continue risk factor modification. Echocardiogram to rule out marantic endocarditis. As an outpatient, the patient should see Vascular Neurosurgery. They may perform a physiologic tests such as a PET CT or MRI to check the ischemic penumbra. I think the most important thing to begin with would be to make sure her blood pressure is well maintained. We will follow with you.
[2020-07-03] MEDS ORDERED: PROCHLORPERAZINE 10 MG in SYRINGE 8 ML IV PRN (14:49)
[2020-07-03] MEDS: KETOROLAC 30 MG/ML VIAL IV PRN (15:38)
[2020-07-03] MEDS: ERTAPENEM SODIUM 1,000 MG in SODIUM CHLORIDE 0.9% 50 ML IV SCH (22:03)
[2020-07-03] MEDS: ATORVASTATIN 40 MG TAB PO SCH (22:09)
[2020-07-04] MEDS: oxyCODONE HCL IR 5 MG TAB (IMMEDIATE RELEASE) PO PRN ×5 (00:54→21:57)
[2020-07-04 06:21] LABS: Hematocrit (blood only) 26.1 % (37-47); Hemoglobin 8.8 g/dL (12.0-16.0); Mean Corpuscular Hgb Conc 33.7 g/dL (32-36); Mean Corpuscular Volume 100.8 fL (80-100); RDW Coefficient of Variation 14.2 % (11.5-14.5); RDW Standard Deviation 52.2 fL (36.4-46.3); Red Blood Count 2.59 M/uL (4.2-5.4); White Blood Count 4.12 K/uL (4.8-10.8)
[2020-07-04 06:34] LABS: Mean Platelet Volume 10.3 fL (7.4-10.4); Platelet Count 98 K/uL (130-400)
[2020-07-04 06:51] LABS: Calcium 8.2 mg/dl (8.5-10.1); Creatinine Clr Calc Pharmacy 100.6 ml/min; Est GFR (African American) 113.5; Potassium 3.3 mmol/L (3.5-5.1)
--- NOTE | 2020-07-04 08:10 | Hospitalist Progress Note ---
Date of Service July 04, 2020 Assessment & Plan (1) Encephalopathy: Multifactorial : Acute on chronic hypotension, possible hypovolemia, hx hypotension on fludrocortisone Sepsis secondary to HCAP/possible aspiration pneumonia Rule out recurrent CVA given aphasia/dysarthria symptoms CTA H&N noted hx small cell lung cancer s/p chemoradiation, currently in remission hx PVD Hyperlipidemia on statin Rx mood disorder, at baseline chronic anemia, hemoglobin better than baseline likely secondary to hemoconcentration Steroid-induced hyperglycemia, probable DM2, hemoglobin A1c of 6.15 December 2019 Hypokalemia secondary to poor p.o. intake, mineralocorticoid Rx History RUE DVT on Eliquis Past tobacco abuse Medical telemetry IVF, replace electrolytes Continue fludrocortisone, may need dose titration if hypotension persistent Cultures, Ertapenem Aspiration precautions, swallow eval Neurochecks TTE noted, No PFO, EF Normal, Brain MRI negative Neurology on case (ER provider already in touch with Dr. Bella who recommends aspirin for secondary stroke prevention.) ISS BG goal [id number], update hemoglobin A1c PT/OT eval DVT prophylaxis. Eliquis Full code ROS-No Headache, No Visual Changes, No Nausea, No Vomiting, No Fever, No Chills, No Neck Pain or Stiffness, No Chest Pain, No Palpitations, No SOB, No ALBRIGHT, No Cough, No Sputum, No Wheezing, No Abdominal Pain, No Diarrhea, No Hematemesis, No Hemoptysis, No Unexpected Weight Loss, No Flank pain, No Melena, No Hematochezia, No Frequency, No Urgency, No Burning, No Hematuria, No Rashes, No Diaphoresis. Appetite is Normal Physical Exam Gen-AAO x 3, NAD, Afebrile, Dysarthric from not having Dentures Head-NCAT, EOMI, PERRLA, Anicteric Sclera, No Posterior Pharyngeal Erythema Neck-Supple, No JVD, No Thyromegaly, No Masses, No LAD, No Bruits Lungs-Clear to Auscultation Bilaterally, No Rales, No Rhonchi, No Wheezing, No Crepitus Chest-No S4, +S1, +S2, No S3, No Murmurs, No Rubs, No Gallops, No Ectopy Abdomen-Soft, Bowel Sounds Present, Non Tender, Non Distended, No Hepatomegaly, No Splenomegaly, No Palpable Masses, No Rebound, No Rigidity, No Guarding Musculoskeletal-Full Range of Motion Bilaterally, No CVAT Extremities-No Cyanosis, No Clubbing, No Edema Nuero-Cranial Nerves II-XII grossly intact, Motor WNL, DTRs WNL, Strength WNL, Non Focal Psych-Normal Mood Admission and Anticipated Discharge Date Admission Date: July 02, 2020 Results & Data Results & Data ([facility]) Vital Signs (Past 12 Hours) Vital Signs Temp Pulse Pulse Resp BP Pulse Ox 07/04/20 07:51 73 07/04/20 07:27 36.6 C 69 18 113/74 94 07/04/20 04:01 36.3 C L 62 20 121/74 96 07/04/20 01:00 61 07/03/20 22:54 36.5 C 63 20 116/74 94
[2020-07-04] MEDS: UMECLIDINIUM/VILANTEROL 62.5/25MCG 7 PUFFS/INHALER INH SCH (09:00)
[2020-07-04] MEDS: DULoxetine HCL 60 MG CAP PO SCH (09:01)
[2020-07-04] MEDS: APIXABAN 2.5 MG TAB PO SCH ×2 (09:01→20:19)
[2020-07-04] MEDS: FLUDROCORTISONE ACETATE 0.1 MG TAB PO SCH ×2 (09:02→20:18)
[2020-07-04] MEDS: GABAPENTIN 100 MG CAP PO SCH ×3 (09:02→20:19)
[2020-07-04] MEDS: PANTOprazole 40 MG TAB PO SCH ×2 (09:03→20:19)
[2020-07-04] MEDS: ASPIRIN 81 MG ECTAB PO SCH (09:03)
[2020-07-04] MEDS: INSULIN ASPART 100 UNITS/ML 3 ML PEN SC SCH ×4 (09:08→20:35)
[2020-07-04] MEDS: POTASSIUM CHLORIDE / WTR 10 MEQ/100 ML PLCT IV SCH ×2 (09:20→10:52)
[2020-07-04] MEDS: KETOROLAC 30 MG/ML VIAL IV PRN (09:30)
[2020-07-04 10:22] LABS: Folate (Folic Acid) 4.6 ng/ml (>5.38)
[2020-07-04] MEDS: HEPARIN 100 UNIT/ML 5ML FLUSH FLUSH PRN ×2 (12:24→21:28)
--- NOTE | 2020-07-04 14:01 | Progress Notes ---
DATE: 07/04/2020 SUBJECTIVE: I am seeing the patient in followup of an episode of language dysfunction lasting 2-3 hours with a normal MRI of the brain. CTA of the head showing progressive stenosis, progressive multifocal stenosis of the left middle cerebral artery and a 50% stenosis of the left internal carotid artery. The patient has not had any recurrent symptoms and is on Eliquis as well as aspirin. Her echo showed no evidence of marantic endocarditis and no evidence of an atrial septal defect. PHYSICAL EXAMINATION: VITAL SIGNS: 36.8, 74, 18, 92/60, O2 sat with 3 liters is 92%. GENERAL: The patient is awake and alert. Her spontaneous speech and language are normal and her affect is appropriate. IMPRESSION: Recurrent left hemisphere transient ischemic attack with language dysfunction with this episode and an episode in the early fall. At the time of the episode in the fall, she was on aspirin and Plavix, but this appears to have been discontinued when she was placed on Eliquis for right upper extremity deep venous thrombosis. Aspirin has been added. This patient is reported to have orthostatic hypotension and I suspect this may contribute or cause these episodes given decreased [employer] perfusion in a compromised vasculature. PLAN: Avoid hypotension, modify all vascular risk factors, goal LDL of 70 or less. Continue Eliquis and aspirin. I would recommend that the patient to see Vascular Neurosurgery in the coming weeks. I have asked her, when she sees Oncology this coming week, to discuss with them whether or not this stage of her cancer is adequately controlled that she would be thought to be a candidate for a procedure such as carotid stenting. Provided there are no contraindications for procedures based on her prognosis with lung cancer. I would refer her to Vascular Neurosurgery for further evaluation of the left internal carotid stenosis. In general the intracranial stenosis is not typically approached via interventional methods. The patient should see someone in my practice within 2-3 weeks post discharge.
[2020-07-04] MEDS ORDERED: SODIUM CHLORIDE 0.9% 1000ML 1,000 ML IV ONE (15:34)
[2020-07-04] MEDS ORDERED: LACTATED RINGER'S 1,000 ML IV ONE (19:17)
[2020-07-04 19:58] LABS: Basophils # (auto) 0.01 K/uL (0-0.2); Basophils % (auto) 0.3 %; Eosinophils # (auto) 0.13 K/uL (0-0.5); Eosinophils % (auto) 3.4 %; Hematocrit (blood only) 27.5 % (37-47); Hemoglobin 9.1 g/dL (12.0-16.0); Immature Granulocytes # (auto) 0.01 K/uL (0.00-0.02); Immature Granulocytes % (auto) 0.3 %; Lymphocytes # (auto) 0.61 K/uL (1.2-3.4); Mean Corpuscular Hemoglobin 34.1 pg (25-34); Mean Corpuscular Hgb Conc 33.1 g/dL (32-36); Mean Platelet Volume 10.5 fL (7.4-10.4); Monocytes # (auto) 0.34 K/uL (0.11-0.59); Monocytes % (auto) 8.9 %; Neutrophils # (auto) 2.72 K/uL (1.4-6.5); Neutrophils % (auto) 71.1 %; Platelet Count 103 K/uL (130-400); RDW Standard Deviation 52.8 fL (36.4-46.3); Red Blood Count 2.67 M/uL (4.2-5.4); White Blood Count 3.82 K/uL (4.8-10.8)
[2020-07-04 20:15] LABS: BUN Creatinine Ratio 10.2 (10-20); Creatinine Clr Calc Pharmacy 92.5 ml/min; Est GFR (African American) 110.4; Est GFR (Non-African American) 95.3; Magnesium 1.9 mg/dl (1.8-2.4); Potassium 3.7 mmol/L (3.5-5.1)
[2020-07-04] MEDS: ERTAPENEM SODIUM 1,000 MG in SODIUM CHLORIDE 0.9% 50 ML IV SCH (20:17)
[2020-07-04] MEDS: ATORVASTATIN 40 MG TAB PO SCH (20:18)
[2020-07-04] MEDS: LIDOCAINE 5% 1 PATCH TD SCH (20:19)
[2020-07-04] MEDS: MIDODRINE HCL 2.5 MG TAB PO SCH (22:36)
[2020-07-05] MEDS: ACETAMINOPHEN 325 MG TAB PO PRN (00:47)
[2020-07-05] MEDS: HEPARIN 100 UNIT/ML 5ML FLUSH FLUSH PRN (06:09)
[2020-07-05 06:26] LABS: Hematocrit (blood only) 26.5 % (37-47); Hemoglobin 8.7 g/dL (12.0-16.0); Mean Corpuscular Hgb Conc 32.8 g/dL (32-36); Mean Corpuscular Volume 103.5 fL (80-100); RDW Coefficient of Variation 14.2 % (11.5-14.5); RDW Standard Deviation 53.3 fL (36.4-46.3); Red Blood Count 2.56 M/uL (4.2-5.4); White Blood Count 3.49 K/uL (4.8-10.8)
[2020-07-05 06:46] LABS: Platelet Count 99 K/uL (130-400)
--- NOTE | 2020-07-05 06:51 | Communication Note ---
Date of Service: July 04, 2020 Patient SBP noted to be 50 to 60s as per RN. Patient asymptomatic. AP Hypotension hx idiopathic hypotension on fludrocortisone IVF bolus Initiate midodrine (Patient on fludrocortisone and midodrine for hypotension at rehab facility last March as per records.) Consider weaning off Fludrocortisone if midodrine effective. Fludrocortisone likely responsible for recurrent hypokalemic episodes. Will relay to AM provider.
[2020-07-05 06:55] LABS: Calcium 8.1 mg/dl (8.5-10.1); Creatinine Clr Calc Pharmacy 98.8 ml/min; Est GFR (African American) 112.9; Est GFR (Non-African American) 97.4; Potassium 3.5 mmol/L (3.5-5.1)
[2020-07-05 07:00] LABS: Platelet Estimate Decreased (Normal)
[2020-07-05] MEDS: INSULIN ASPART 100 UNITS/ML 3 ML PEN SC SCH ×4 (08:03→21:08)
--- NOTE | 2020-07-05 09:14 | Hospitalist Progress Note ---
Date of Service July 05, 2020 Assessment & Plan (1) Encephalopathy: Multifactorial : Acute on chronic hypotension, possible hypovolemia, hx hypotension on fludrocortisone, On Midodrine and Fludrocortisone Sepsis secondary to HCAP/possible aspiration pneumonia, Invanz Brain MRI Noted CTA H&N noted hx small cell lung cancer s/p chemoradiation, to address c Onc after DC hx PVD Hyperlipidemia on statin Rx mood disorder, at baseline chronic anemia, hemoglobin better than baseline likely secondary to hemoconcentration Steroid-induced hyperglycemia, probable DM2, hemoglobin A1c of 6.15 December 2019 Hypokalemia secondary to poor p.o. intake, mineralocorticoid Rx History RUE DVT on Eliquis Past tobacco abuse IVF, replace electrolytes Continue fludrocortisone, may need dose titration if hypotension persistent Cultures, Ertapenem Aspiration precautions, swallow eval today Neurochecks TTE noted, No PFO, EF Normal, Brain MRI negative Neurology on case (ER provider already in touch with Dr. Bella who recommends aspirin for secondary stroke prevention.) ISS BG goal [id number], update hemoglobin A1c PT/OT eval DVT prophylaxis. Eliquis Full code ROS-No Headache, No Visual Changes, No Nausea, No Vomiting, No Fever, No Chills, No Neck Pain or Stiffness, No Chest Pain, No Palpitations, No SOB, No ALBRIGHT, No Cough, No Sputum, No Wheezing, No Abdominal Pain, No Diarrhea, No Hematemesis, No Hemoptysis, No Unexpected Weight Loss, No Flank pain, No Melena, No Hematochezia, No Frequency, No Urgency, No Burning, No Hematuria, No Rashes, No Diaphoresis. Appetite is Normal Physical Exam Gen-AAO x 3, NAD, Afebrile, Dysarthric from not having Dentures Head-NCAT, EOMI, PERRLA, Anicteric Sclera, No Posterior Pharyngeal Erythema Neck-Supple, No JVD, No Thyromegaly, No Masses, No LAD, No Bruits Lungs-Clear to Auscultation Bilaterally, No Rales, No Rhonchi, No Wheezing, No Crepitus Chest-No S4, +S1, +S2, No S3, No Murmurs, No Rubs, No Gallops, No Ectopy Abdomen-Soft, Bowel Sounds Present, Non Tender, Non Distended, No Hepatomegaly, No Splenomegaly, No Palpable Masses, No Rebound, No Rigidity, No Guarding Musculoskeletal-Full Range of Motion Bilaterally, No CVAT Extremities-No Cyanosis, No Clubbing, No Edema Nuero-Cranial Nerves II-XII grossly intact, Motor WNL, DTRs WNL, Strength WNL, Non Focal Psych-Normal Mood Admission and Anticipated Discharge Date Admission Date: July 02, 2020 Results & Data Results & Data ([facility]) Vital Signs (Past 12 Hours) Vital Signs Temp Pulse Pulse Resp BP BP Pulse Ox 07/05/20 07:21 36.4 C L 77 16 107/73 94 07/05/20 03:42 36.6 C 81 18 99/65 L 94 07/04/20 23:12 82 07/04/20 23:11 36.8 C 81 20 92/60 L 93 07/04/20 21:30 84 102/70 07/04/20 21:17 86
--- NOTE | 2020-07-05 10:28 | Fluoroscopy Report ---
FL barium swallow CLINICAL HISTORY: 64 years-old Female with r/o esophageal dysfunction. Acute dysphasia with esophage al dysfunction and chest pain TECHNIQUE: Barium contrast and effervescent crystals were administered to the patient under fluorosco pic examination. Barium tablet also administered. Multiple images were obtained and submitted for rev iew. FLUOROSCOPY TIME: 1.7 minutes COMPARISON: CTA of the neck 07/02/2020. FINDINGS: During deglutition, contrast material flowed freely through the cervical esophagus. There is no abnor mal stricturing or mass effect is seen. The mid to distal esophagus is well coated and distended. Mi ld mid and distal esophageal tertiary contractions with decreased transit of the barium tablet. There is mild mucosal irregularity of the midthoracic esophagus (for example please see image 5). No signi ficant reflux or hiatal hernia was demonstrated during the exam. The GE junction is normal in appear ance. IMPRESSION: 1. Mild esophageal dysmotility. 2. Mucosal irregularity of the mid esophagus may reflect esophagitis. 3. No hiatal hernia or gastroesophageal reflux. ACT 112: Negative or not required by law. The above report was generated using voice recognition software. It may contain grammatical, syntax o r spelling errors. Electronically signed by: Dannie Estrada M.D. 07/05/2020 10:27 AM
[2020-07-05] MEDS: PANTOprazole 40 MG TAB PO SCH ×2 (10:32→20:33)
[2020-07-05] MEDS: FLUDROCORTISONE ACETATE 0.1 MG TAB PO SCH ×2 (10:32→20:33)
[2020-07-05] MEDS: MIDODRINE HCL 2.5 MG TAB PO SCH ×3 (10:32→17:14)
[2020-07-05] MEDS: UMECLIDINIUM/VILANTEROL 62.5/25MCG 7 PUFFS/INHALER INH SCH (10:32)
[2020-07-05] MEDS: GABAPENTIN 100 MG CAP PO SCH ×3 (10:33→20:33)
[2020-07-05] MEDS: ASPIRIN 81 MG ECTAB PO SCH (10:33)
[2020-07-05] MEDS: APIXABAN 2.5 MG TAB PO SCH ×2 (10:33→20:33)
[2020-07-05] MEDS: DULoxetine HCL 60 MG CAP PO SCH (10:33)
[2020-07-05] MEDS: oxyCODONE HCL IR 5 MG TAB (IMMEDIATE RELEASE) PO PRN ×2 (10:36→19:48)
[2020-07-05] MEDS: KETOROLAC 30 MG/ML VIAL IV PRN (15:38)
[2020-07-05] MEDS: ERTAPENEM SODIUM 1,000 MG in SODIUM CHLORIDE 0.9% 50 ML IV SCH (20:30)
[2020-07-05] MEDS: ATORVASTATIN 40 MG TAB PO SCH (20:33)
[2020-07-05] MEDS: LIDOCAINE 5% 1 PATCH TD SCH (20:35)
[2020-07-06] MEDS: HEPARIN 100 UNIT/ML 5ML FLUSH FLUSH PRN ×3 (00:03→15:21)
[2020-07-06] MEDS: oxyCODONE HCL IR 5 MG TAB (IMMEDIATE RELEASE) PO PRN ×3 (04:17→18:29)
[2020-07-06 06:14] LABS: Hematocrit (blood only) 26.3 % (37-47); Hemoglobin 8.7 g/dL (12.0-16.0); Mean Corpuscular Hemoglobin 33.7 pg (25-34); Mean Corpuscular Hgb Conc 33.1 g/dL (32-36); Mean Corpuscular Volume 101.9 fL (80-100); Mean Platelet Volume 10.4 fL (7.4-10.4); Platelet Count 101 K/uL (130-400); RDW Standard Deviation 52.6 fL (36.4-46.3); Red Blood Count 2.58 M/uL (4.2-5.4); White Blood Count 3.94 K/uL (4.8-10.8)
[2020-07-06 06:42] LABS: BUN Creatinine Ratio 9.9 (10-20); Calcium 7.7 mg/dl (8.5-10.1); Creatinine Clr Calc Pharmacy 100.6 ml/min; Est GFR (African American) 113.5; Potassium 3.2 mmol/L (3.5-5.1)
[2020-07-06] MEDS: GABAPENTIN 100 MG CAP PO SCH ×3 (07:53→20:36)
[2020-07-06] MEDS: FLUDROCORTISONE ACETATE 0.1 MG TAB PO SCH ×2 (07:53→20:34)
[2020-07-06] MEDS: APIXABAN 2.5 MG TAB PO SCH (07:54)
[2020-07-06] MEDS: ASPIRIN 81 MG ECTAB PO SCH (07:54)
[2020-07-06] MEDS: PANTOprazole 40 MG TAB PO SCH ×2 (07:54→20:36)
[2020-07-06] MEDS: DULoxetine HCL 60 MG CAP PO SCH (07:55)
[2020-07-06] MEDS: MIDODRINE HCL 2.5 MG TAB PO SCH ×3 (07:55→18:08)
[2020-07-06] MEDS: UMECLIDINIUM/VILANTEROL 62.5/25MCG 7 PUFFS/INHALER INH SCH (07:56)
[2020-07-06] MEDS: INSULIN ASPART 100 UNITS/ML 3 ML PEN SC SCH ×4 (07:58→22:19)
--- NOTE | 2020-07-06 08:12 | Gastrointestinal Consultation ---
Date of Consultation July 06, 2020 Assessment & Plan (1) Odynophagia: Ms. Fischer's feeling of right sided chest discomfort on swallowing may represent a radiation esophagitis, candidal esophagitis, reflux esophagitis, esophageal dysmotility or less likely an esophageal mass (unlikely as not seen on barium swallow). Recommend NPO after midnight and EGD tomorrow by Dr. Fernandes. Will hold Eliquis until after EGD. OK to continue the low dose daily ASA. Continue po BID PPI for now. Further recommendations to follow the EGD. Present on Admission?: Yes Supervising Physician Co-Signing Physician Notes Late entry: Patient was seen and examined on 07/06 with VICKI Kenny whose note reflects our findings and plan. EGD planned for Sun History of Present Illness Reason for Consultation: Esophagitis/Esophageal Spasm Requesting Physician: Dr. Alvarez Attending Physician: Jack Alvarez, History of Present Illness Ms. Marcus Fischer is a 64 yr old female pt of Dr. Rosa Crooks with a hx of small cell lung ca S/P chemoradiation (radiation completed in 2019; currently not on chemo but have appt with hemoc to consider further chemo), CVA, or thostatic hypotension (on fludrocortisone), chronic anemia (baseline hemoglobin 9), RUE DVT on Eliquis (most recent dose 2.5mg this morning), past tobacco abuse. She presented to the ED on 07/02 for right sided CP and cough. GI is consulted for ? esophagitis/esophageal spasm. She reports right sided chest pain and discomfort with swallowing for approx 2 wks. This discomfort is a "clenching" feeling that lasts a few seconds. She also gets this feeling when she is not eating. She has also had nausea/vomiting intermittently for approx one week, vomiting up white or yellow phlegm. She denies any hematemesis, red or black BMs. So significant abdominal pain. She denies any exertional CP or SOB. She has never previously undergone EGD. Barium swallow yesterday suggested esophagitis and possible disordered esophageal motility. She is on Apixiban 2.5mg BID and one 81mg ASA daily. Prior to arrival, she was on Omeprazole 20mg BID and on arrival, was started on Pantoprazole 40mg BID. Allergies Allergy/AdvReac Type Severity Reaction Status Date / Time mushroom Allergy Severe anaphylaxis Verified 06/15/20 15:32 Penicillins Allergy Severe anaphylaxis, Verified 06/15/20 15:32 facial & throat swelling acetazolamide Allergy Intermediate rash, hives Verified 06/15/20 15:32 mold Allergy Unknown unknown Verified 06/15/20 15:32 reaction sumatriptan AdvReac Intermediate flushing, Verified 06/15/20 15:32 heart racing Home Medications Medication Instructions Recorded Confirmed Type albuterol sulfate 90 mcg/actuation 2 puff INH Q6H PRN #18 gm 10/23/19 07/02/20 Rx aerosol inhaler duloxetine 60 mg PO QAM 01/03/20 07/02/20 History omeprazole 20 mg PO BID 30 Days #60 cap 01/27/20 07/02/20 Rx magnesium oxide 400 mg PO BID #60 tab 02/07/20 07/02/20 Rx Anoro Ellipta 1 puffs INH QAM 05/29/20 07/02/20 History Eliquis 2.5 mg PO BID 05/29/20 07/02/20 History atorvastatin 40 mg PO HS 05/29/20 07/02/20 History fludrocortisone 0.1 mg PO BID 05/29/20 07/02/20 History ondansetron 8 mg PO Q8H PRN 05/29/20 07/02/20 History acetaminophen [Tylenol Extra 1,000 mg PO Q6H PRN 06/06/20 07/02/20 History Strength] cyclobenzaprine 10 mg PO TID PRN 07/02/20 07/02/20 History gabapentin 100 mg PO TID 07/02/20 07/02/20 History oxycodone 10 mg PO Q6H PRN 07/02/20 07/02/20 History aspirin 81 mg PO QAM #90 tab 07/05/20 Rx fludrocortisone 0.1 mg PO BID #60 tab 07/05/20 Rx lidocaine 1 patch TRANSDERMAL HS PRN #30 ea 07/05/20 Rx midodrine 2.5 mg PO TID@0800,1200,1700 #90 07/05/20 Rx tab oxycodone 5 - 10 mg PO QID PRN #30 tab 07/05/20 Rx Patient History Medical History (Updated 07/06/20 @ 11:57 by VICKI Resendiz) Acute kidney injury Acute shoulder pain Now a constant ache - no prescription meds needed Anxiety Chronic venous insufficiency follows with vascular (Dr. Carlson) CKD (chronic kidney disease), stage III COPD with emphysema Dentalgia Depression Hypertension Hypokalemia Kidney stones LAD (lymphadenopathy), mediastinal Major depressive disorder, recurrent episode with anxious distress Daughter from OD in 2016 Migraine Nausea & vomiting Neutropenia with fever Nicotine dependence Pancytopenia Polysubstance overdose Hx of 2017 Pulmonary nodule "7 mm RUL nodule, stable 09/25/15 - 09/16/16; repeat 6 mos" Surgical History History of bronchoscopy 10/30/2019 - with EBUS History of cataract surgery 2004 - bilateral History of section 1991 History of colonoscopy unsuccessful (poor bowel prep) History of cystoscopy 2007 - with stent History of dental surgery 02/2019 - Full upper teeth extracted S/P arthroscopy of left knee S/P arthroscopy of right knee Family History Grandmother (Maternal) , Passed in 80's of metastatic cancer (unknown primary) No problems noted. Mother , Passed age 93 of natural causes No problems noted. Father , Passed age 97 of natural causes No problems noted. Brother No problems noted. Daughter , Passed age 24 from Over Dose No problems noted. 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 No palpitations/irregular beats GI: No abdominal pain, no nausea/vomiting : Denies pain on urination Skin: No jaundice, itching or new rashes Physical Exam Constitutional: WD/WN, vitals as above Eyes: PERRL, conjunctivae normal, anicteric sclerae ENMT: external ear and nose normal, oropharynx normal Neck: trachea midline, no thyromegaly Respiratory: normal respiratory effort, lungs clear to auscultation Cardiovascular: RRR, no murmur, no edema Gastrointestinal (Abdomen): normal bowel sounds, soft, nontender, no hepatosplenomegaly Musculoskeletal: no cyanosis or clubbing, extremities motor strength 5/5 Skin: no rashes, warm and dry Neurologic: PERRL, EOMI, accommodation nl, no face palsy, no dysarthria Speech / Cognition: + abnormal speech (very mild delay in word finding; minimal slurring) Motor/Sensory: no tremor + repetitive facial motions - always moving the mouth side to side similar to chewing, mouth open Psychiatric: A+Ox3, euthymic affect Lymphatic: no cervical or axillary lymphadenopathy Results & Data ([facility]) Vital Signs (Past 12 Hours) Vital Signs Temp Pulse Pulse Resp BP Pulse Ox 07/06/20 07:22 75 07/06/20 07:07 36.7 C 81 20 97/65 L 92 07/06/20 04:00 36.6 C 75 20 105/71 93 07/05/20 23:59 77 07/05/20 23:53 36.6 C 76 20 95/65 L 95 Laboratory Results WBC 3.9, Hb 8.7, Hct 263, Platelets 11, Na 143, K 3.2, BUN 6, Cr 0.57, glucose 76. Diagnostic Findings Barium Swallow on 07/05/20: 1. Mild esophageal dysmotility. 2. Mucosal irregularity of the mid esophagus may reflect esophagitis. 3. No hiatal hernia or gastroesophageal reflux. MRI 07/02/20: No acute intracranial abnormality. Chest CTA 07/02/20: 1. Limited exam as above. 2. Cardiomegaly without pulmonary emboli 3. Trace pleural effusions, decreased in size on the right. 4. Mildly progressive groundglass opacities within the right lower and middle lobes suggestive of an infectious or inflammatory pneumonitis. 5. Unchanged irregular airspace opacities of the basal right lower lobe. 6. Emphysema with bronchitis. 7. Unchanged 7 mm solid nodule of the right lung apex. 8. Diffuse esophageal wall thickening redemonstrated.
--- NOTE | 2020-07-06 08:58 | Hospitalist Progress Note ---
Date of Service July 06, 2020 Assessment & Plan (1) Encephalopathy: Multifactorial : Acute on chronic hypotension, possible hypovolemia, hx hypotension on fludrocortisone, On Midodrine and Fludrocortisone Sepsis secondary to HCAP/possible aspiration pneumonia, Invanz Brain MRI Noted CTA H&N noted hx small cell lung cancer s/p chemoradiation, to address c Onc after DC hx PVD Hyperlipidemia on statin Rx mood disorder, at baseline chronic anemia, hemoglobin better than baseline likely secondary to hemoconcentration Steroid-induced hyperglycemia, probable DM2, hemoglobin A1c of 6.15 December 2019 Hypokalemia secondary to poor p.o. intake, mineralocorticoid Rx History RUE DVT on Eliquis Past tobacco abuse IVF, replace electrolytes Continue fludrocortisone, may need dose titration if hypotension persistent Cultures, Ertapenem Aspiration precautions, swallow eval today Esophagitis/Esophageal Spasm-GI on case, await opinion Neurochecks TTE noted, No PFO, EF Normal, Brain MRI negative Neurology on case (ER provider already in touch with Dr. Bella who recommends aspirin for secondary stroke prevention.) ISS BG goal [id number], update hemoglobin A1c PT/OT eval DVT prophylaxis. Eliquis Full code ROS-No Headache, No Visual Changes, No Nausea, No Vomiting, No Fever, No Chills, No Neck Pain or Stiffness, No Chest Pain, No Palpitations, No SOB, No ALBRIGHT, No Cough, No Sputum, No Wheezing, No Abdominal Pain, No Diarrhea, No Hematemesis, No Hemoptysis, No Unexpected Weight Loss, No Flank pain, No Melena, No Hematochezia, No Frequency, No Urgency, No Burning, No Hematuria, No Rashes, No Diaphoresis. Appetite is Normal Physical Exam Gen-AAO x 3, NAD, Afebrile, Dysarthric from not having Dentures Head-NCAT, EOMI, PERRLA, Anicteric Sclera, No Posterior Pharyngeal Erythema Neck-Supple, No JVD, No Thyromegaly, No Masses, No LAD, No Bruits Lungs-Clear to Auscultation Bilaterally, No Rales, No Rhonchi, No Wheezing, No Crepitus Chest-No S4, +S1, +S2, No S3, No Murmurs, No Rubs, No Gallops, No Ectopy Abdomen-Soft, Bowel Sounds Present, Non Tender, Non Distended, No Hepatomegaly, No Splenomegaly, No Palpable Masses, No Rebound, No Rigidity, No Guarding Musculoskeletal-Full Range of Motion Bilaterally, No CVAT Extremities-No Cyanosis, No Clubbing, No Edema Nuero-Cranial Nerves II-XII grossly intact, Motor WNL, DTRs WNL, Strength WNL, Non Focal Psych-Normal Mood Admission and Anticipated Discharge Date Admission Date: July 02, 2020 Results & Data Results & Data ([facility]) Vital Signs (Past 12 Hours) Vital Signs Temp Pulse Pulse Resp BP Pulse Ox 07/06/20 07:22 75 07/06/20 07:07 36.7 C 81 20 97/65 L 92 07/06/20 04:00 36.6 C 75 20 105/71 93 07/05/20 23:59 77 07/05/20 23:53 36.6 C 76 20 95/65 L 95
[2020-07-06] MEDS: CALCIUM CARBONATE 1,250 MG/5 ML UDC PO SCH ×2 (09:37→20:34)
[2020-07-06] MEDS: POTASSIUM CHLORIDE / WTR 10 MEQ/100 ML PLCT IV SCH ×3 (09:37→12:00)
[2020-07-06] MEDS ORDERED: SODIUM CHLORIDE 0.9% 1000ML 1,000 ML IV SCH (12:52)
--- NOTE | 2020-07-06 14:07 | Ultrasound Report ---
RIGHT UPPER EXTREMITY VENOUS DOPPLER HISTORY: Right Arm Swelling COMPARISON STUDY: Right ARM venous Doppler 01/24/2020. FINDINGS: The right jugular vein is small in caliber and may contain chronic thrombus. There is a Por t-A-Cath seen within the subclavian vein which is only partially visualized due to the overlying band age. The axillary, basilic, brachial, radial, and ulnar veins are also small in caliber but are likel y patent. IMPRESSION: 1. No definite acute DVT within the right upper extremity. 2. The right jugular vein is small in caliber and may contain a small amount of chronic thrombus. 3. The remaining right upper extremity deep venous structures are also small in caliber but are likel y patent. ACT 112: Negative or not required by law. Electronically signed by: Avni Gongora M.D. 07/06/2020 2:05 PM
[2020-07-06] MEDS: KETOROLAC 30 MG/ML VIAL IV PRN ×2 (15:34→21:11)
[2020-07-06] MEDS: ERTAPENEM SODIUM 1,000 MG in SODIUM CHLORIDE 0.9% 50 ML IV SCH (20:27)
[2020-07-06] MEDS: LIDOCAINE 5% 1 PATCH TD SCH (20:35)
[2020-07-06] MEDS: ATORVASTATIN 40 MG TAB PO SCH (20:36)
[2020-07-07] MEDS: oxyCODONE HCL IR 5 MG TAB (IMMEDIATE RELEASE) PO PRN ×2 (04:10→11:13)
[2020-07-07 06:23] LABS: Hematocrit (blood only) 27.2 % (37-47); Hemoglobin 9.1 g/dL (12.0-16.0); Mean Corpuscular Hemoglobin 34.1 pg (25-34); Mean Corpuscular Hgb Conc 33.5 g/dL (32-36); Mean Corpuscular Volume 101.9 fL (80-100); Mean Platelet Volume 10.6 fL (7.4-10.4); Platelet Count 104 K/uL (130-400); Red Blood Count 2.67 M/uL (4.2-5.4); White Blood Count 5.05 K/uL (4.8-10.8)
[2020-07-07 06:59] LABS: BUN Creatinine Ratio 6.6 (10-20); Calcium 8.1 mg/dl (8.5-10.1); Creatinine Clr Calc Pharmacy 98.8 ml/min; Est GFR (African American) 112.9; Est GFR (Non-African American) 97.4
[2020-07-07] MEDS: DULoxetine HCL 60 MG CAP PO SCH (07:53)
[2020-07-07] MEDS: GABAPENTIN 100 MG CAP PO SCH ×2 (07:54→13:05)
[2020-07-07] MEDS: MIDODRINE HCL 2.5 MG TAB PO SCH ×2 (07:54→11:14)
[2020-07-07] MEDS: PANTOprazole 40 MG TAB PO SCH (07:54)
[2020-07-07] MEDS: FLUDROCORTISONE ACETATE 0.1 MG TAB PO SCH (07:55)
[2020-07-07] MEDS: UMECLIDINIUM/VILANTEROL 62.5/25MCG 7 PUFFS/INHALER INH SCH (07:55)
[2020-07-07] MEDS: ASPIRIN 81 MG ECTAB PO SCH (07:55)
[2020-07-07] MEDS: INSULIN ASPART 100 UNITS/ML 3 ML PEN SC SCH ×3 (07:56→17:30)
[2020-07-07] MEDS: CALCIUM CARBONATE 1,250 MG/5 ML UDC PO SCH (07:56)
[2020-07-07] MEDS: KETOROLAC 30 MG/ML VIAL IV PRN (08:01)
--- NOTE | 2020-07-07 09:37 | Hospitalist Progress Note ---
Date of Service July 07, 2020 Assessment & Plan (1) Encephalopathy: Multifactorial : Acute on chronic hypotension, possible hypovolemia, hx hypotension-, On Midodrine and Fludrocortisone, Taper Fludrocortisone Sepsis secondary to HCAP/possible aspiration pneumonia, Invanz Brain MRI Noted CTA H&N noted hx small cell lung cancer s/p chemoradiation, to address c Onc after DC hx PVD Hyperlipidemia on statin Rx mood disorder, at baseline chronic anemia, hemoglobin better than baseline likely secondary to hemoconcentration Steroid-induced hyperglycemia, probable DM2, hemoglobin A1c of 6.15 December 2019 Hypokalemia secondary to poor p.o. intake, mineralocorticoid Rx History RUE DVT on Eliquis Past tobacco abuse IVF, replace electrolytes Continue fludrocortisone, may need dose titration if hypotension persistent Cultures, Ertapenem Aspiration precautions, swallow eval today Esophagitis/Esophageal Spasm-GI on case, EGD today, Possible DC later today Neurochecks TTE noted, No PFO, EF Normal, Brain MRI negative Neurology on case (Dr. Bella recommends aspirin for secondary stroke prevention.) ISS BG goal [id number], update hemoglobin A1c PT/OT eval DVT prophylaxis. Eliquis, resume on DC Full code ROS-No Headache, No Visual Changes, No Nausea, No Vomiting, No Fever, No Chills, No Neck Pain or Stiffness, No Chest Pain, No Palpitations, No SOB, No ALBRIGHT, No Cough, No Sputum, No Wheezing, No Abdominal Pain, No Diarrhea, No Hematemesis, No Hemoptysis, No Unexpected Weight Loss, No Flank pain, No Melena, No Hematochezia, No Frequency, No Urgency, No Burning, No Hematuria, No Rashes, No Diaphoresis. Appetite is Normal Physical Exam Gen-AAO x 3, NAD, Afebrile, Dysarthric from not having Dentures Head-NCAT, EOMI, PERRLA, Anicteric Sclera, No Posterior Pharyngeal Erythema Neck-Supple, No JVD, No Thyromegaly, No Masses, No LAD, No Bruits Lungs-Clear to Auscultation Bilaterally, No Rales, No Rhonchi, No Wheezing, No Crepitus Chest-No S4, +S1, +S2, No S3, No Murmurs, No Rubs, No Gallops, No Ectopy Abdomen-Soft, Bowel Sounds Present, Non Tender, Non Distended, No Hepatomegaly, No Splenomegaly, No Palpable Masses, No Rebound, No Rigidity, No Guarding Musculoskeletal-Full Range of Motion Bilaterally, No CVAT Extremities-No Cyanosis, No Clubbing, No Edema Nuero-Cranial Nerves II-XII grossly intact, Motor WNL, DTRs WNL, Strength WNL, Non Focal Psych-Normal Mood Admission and Anticipated Discharge Date Admission Date: July 02, 2020 Results & Data Results & Data ([facility]) Vital Signs (Past 12 Hours) Vital Signs Temp Pulse Pulse Resp BP BP Pulse Ox 07/07/20 07:52 36.9 C 84 20 140/84 97 07/07/20 03:59 36.9 C 68 18 123/76 96 07/07/20 00:00 36.6 C 69 77 18 114/78 93
--- NOTE | 2020-07-07 09:52 | History & Physical Report ---
Date of Service July 07, 2020 Assessment & Plan (1) Odynophagia: EGD today (2) Chest pain: Admission and Anticipated Discharge Date Admission Date: July 02, 2020 History of Present Illness Chief Complaint: dysphagia, odynophagia, sore throat Primary Care Provider: Hany Glaser MD sore throat, dysphagia Allergies Allergy/AdvReac Type Severity Reaction Status Date / Time mushroom Allergy Severe anaphylaxis Verified 06/15/20 15:32 Penicillins Allergy Severe anaphylaxis, Verified 06/15/20 15:32 facial & throat swelling acetazolamide Allergy Intermediate rash, hives Verified 06/15/20 15:32 mold Allergy Unknown unknown Verified 06/15/20 15:32 reaction sumatriptan AdvReac Intermediate flushing, Verified 06/15/20 15:32 heart racing Home Medications Medication Instructions Recorded Confirmed Type albuterol sulfate 90 mcg/actuation 2 puff INH Q6H PRN #18 gm 10/23/19 07/02/20 Rx aerosol inhaler duloxetine 60 mg PO QAM 01/03/20 07/02/20 History omeprazole 20 mg PO BID 30 Days #60 cap 01/27/20 07/02/20 Rx magnesium oxide 400 mg PO BID #60 tab 02/07/20 07/02/20 Rx Anoro Ellipta 1 puffs INH QAM 05/29/20 07/02/20 History Eliquis 2.5 mg PO BID 05/29/20 07/02/20 History atorvastatin 40 mg PO HS 05/29/20 07/02/20 History fludrocortisone 0.1 mg PO BID 05/29/20 07/02/20 History ondansetron 8 mg PO Q8H PRN 05/29/20 07/02/20 History acetaminophen [Tylenol Extra 1,000 mg PO Q6H PRN 06/06/20 07/02/20 History Strength] cyclobenzaprine 10 mg PO TID PRN 07/02/20 07/02/20 History gabapentin 100 mg PO TID 07/02/20 07/02/20 History oxycodone 10 mg PO Q6H PRN 07/02/20 07/02/20 History aspirin 81 mg PO QAM #90 tab 07/05/20 Rx fludrocortisone 0.1 mg PO BID #60 tab 07/05/20 Rx lidocaine 1 patch TRANSDERMAL HS PRN #30 ea 07/05/20 Rx midodrine 2.5 mg PO TID@0800,1200,1700 #90 07/05/20 Rx tab oxycodone 5 - 10 mg PO QID PRN #30 tab 07/05/20 Rx Past Med/Surg History Medical History (Updated 07/06/20 @ 11:57 by VICKI Resendiz) Acute kidney injury Acute shoulder pain Now a constant ache - no prescription meds needed Anxiety Chronic venous insufficiency follows with vascular (Dr. Carlson) CKD (chronic kidney disease), stage III COPD with emphysema Dentalgia Depression Hypertension Hypokalemia Kidney stones LAD (lymphadenopathy), mediastinal Major depressive disorder, recurrent episode with anxious distress Daughter from OD in 2015 Migraine Nausea & vomiting Neutropenia with fever Nicotine dependence Pancytopenia Polysubstance overdose Hx of 2017 Pulmonary nodule "7 mm RUL nodule, stable 09/25/15 - 09/16/16; repeat 6 mos" Surgical History History of bronchoscopy 10/30/2019 - with EBUS History of cataract surgery 2004 - bilateral History of section 1991 History of colonoscopy unsuccessful (poor bowel prep) History of cystoscopy 2007 - with stent History of dental surgery 02/2019 - Full upper teeth extracted S/P arthroscopy of left knee S/P arthroscopy of right knee Family History Grandmother (Maternal) , Passed in 80's of metastatic cancer (unknown primary) No problems noted. Mother , Passed age 93 of natural causes No problems noted. Father , Passed age 97 of natural causes No problems noted. Brother No problems noted. Daughter , Passed age 24 from Over Dose No problems noted. 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 [employer] Other Information That Helps Us Care for You: No Feels Safe at Home: Yes Safety Concerns: Feels Safe At This Time Childhood Exposure to Second-Hand Smoke: No caffeine: Yes (2 cups of coffee/day ) during the past year weight has: remained stable Dental Care, Regularly: Yes Assistive Devices: Glasses Physical Exam Constitutional: WD/WN, vitals as above Respiratory: normal respiratory effort, lungs clear to auscultation Cardiovascular: RRR, no murmur, no edema Gastrointestinal (Abdomen): normal bowel sounds, soft, nontender, no hepatosplenomegaly Results & Data ([facility]) Vital Signs (Past 12 Hours) Vital Signs Temp Pulse Pulse Resp BP BP Pulse Ox 07/07/20 07:52 36.9 C 84 20 140/84 97 07/07/20 03:59 36.9 C 68 18 123/76 96 07/07/20 00:00 36.6 C 69 77 18 114/78 93 Code Status & VTE Plan VTE Prophylaxis Plan VTE Prophylaxis will be ordered: Yes (1) Chest pain Chest pain type: unspecified Qualified Code(s): R07.9 - Chest pain, unspecified
--- NOTE | 2020-07-07 10:00 | Anesthesiology Consultation ---
Date of Service July 07, 2020 Assessment & Plan Chart Review Chart Review: Acceptable Risk for Surgery and Patient NOT seen in Pre Admission Testing Consults Requested none ASA ASA4 Proposed Anesthesia Anesthesia Type: MAC History Surgery Operation Date: 07/07/20 15:45 Proposed Procedures p Esophagogastroduodenoscopy Dr Fernandes - Willow Fernandes, DO Height/Weight Height: 5 ft 8 in Weight: 71.3 kg Allergies Allergy/AdvReac Type Severity Reaction Status Date / Time mushroom Allergy Severe anaphylaxis Verified 06/15/20 15:32 Penicillins Allergy Severe anaphylaxis, Verified 06/15/20 15:32 facial & throat swelling acetazolamide Allergy Intermediate rash, hives Verified 06/15/20 15:32 mold Allergy Unknown unknown Verified 06/15/20 15:32 reaction sumatriptan AdvReac Intermediate flushing, Verified 06/15/20 15:32 heart racing Medications Home Medications Medication Instructions Recorded Confirmed Last Taken albuterol sulfate 90 mcg/actuation 2 puff INH Q6H PRN #18 gm 10/23/19 07/02/20 05/28/20 aerosol inhaler duloxetine 60 mg PO QAM 01/03/20 07/02/20 06/15/20 09:00 omeprazole 20 mg PO BID 30 Days #60 cap 01/27/20 07/02/20 06/06/20 magnesium oxide 400 mg PO BID #60 tab 02/07/20 07/02/20 06/15/20 09:00 Anoro Ellipta 1 puffs INH QAM 05/29/20 07/02/20 06/15/20 09:00 Eliquis 2.5 mg PO BID 05/29/20 07/02/20 06/15/20 09:00 atorvastatin 40 mg PO HS 05/29/20 07/02/20 06/05/20 fludrocortisone 0.1 mg PO BID 05/29/20 07/02/20 06/15/20 09:00 ondansetron 8 mg PO Q8H PRN 05/29/20 07/02/20 05/29/20 07:00 8 mg acetaminophen [Tylenol Extra 1,000 mg PO Q6H PRN 06/06/20 07/02/20 06/06/20 13:00 Strength] cyclobenzaprine 10 mg PO TID PRN 07/02/20 07/02/20 Unknown gabapentin 100 mg PO TID 07/02/20 07/02/20 Unknown oxycodone 10 mg PO Q6H PRN 07/02/20 07/02/20 Unknown aspirin 81 mg PO QAM #90 tab 07/05/20 Unknown fludrocortisone 0.1 mg PO BID #60 tab 07/05/20 Unknown lidocaine 1 patch TRANSDERMAL HS PRN #30 ea 07/05/20 Unknown midodrine 2.5 mg PO TID@0800,1200,1700 #90 07/05/20 Unknown tab oxycodone 5 - 10 mg PO QID PRN #30 tab 07/05/20 Unknown Active Medications Generic Name Dose Route Start Last Admin Trade Name Freq PRN Reason Stop Dose Admin Acetaminophen 650 mg 07/03/20 01:54 07/05/20 00:47 Acetaminophen 325 Mg Tab PO 08/02/20 01:53 650 mg Q4H PRN Administration Pain or Fever Apixaban 2.5 mg 07/03/20 09:00 07/06/20 07:54 Apixaban 2.5 Mg Tab PO 08/02/20 08:59 2.5 mg BID LC Administration Aspirin 81 mg 07/03/20 09:00 07/07/20 07:55 Aspirin 81 Mg Ectab PO 08/02/20 08:59 81 mg QAM LC Administration Atorvastatin Calcium 40 mg 07/03/20 21:00 07/06/20 20:36 Atorvastatin 40 Mg Tab PO 08/02/20 20:59 40 mg HS LC Administration Calcium Carbonate 1,250 mg 07/06/20 09:00 07/07/20 07:56 Calcium Carbonate 1,250 Mg/5 Ml Udc PO 08/05/20 08:59 1,250 mg BID LC Administration Duloxetine HCl 60 mg 07/03/20 09:00 07/07/20 07:53 Duloxetine Hcl 60 Mg Cap PO 08/02/20 08:59 60 mg QAM LC Administration Gabapentin 100 mg 07/03/20 09:00 07/07/20 07:54 Gabapentin 100 Mg Cap PO 08/02/20 08:59 100 mg TID LC Administration Heparin Sodium (Porcine) 5 ml 07/04/20 01:57 07/06/20 15:21 Heparin 100 Unit/Ml 5ml Flush FLUSH 08/03/20 01:56 5 ml PRN PRN Administration Flush Promethazine HCl 6.25 mg/ 50.25 mls @ 201 mls/hr 07/03/20 01:54 07/03/20 22:22 Sodium Chloride IV 08/02/20 01:53 Infused Q6H PRN Infusion Nausea And Vomiting Ertapenem 1,000 mg/ Sodium 60 mls @ 100 mls/hr 07/03/20 20:00 07/06/20 22:20 Chloride IV 07/09/20 19:59 Infused Q24H LC Infusion Protocol Prochlorperazine 10 mg/ 10 mls @ 5 mls/min 07/03/20 14:49 07/03/20 17:47 Syringe IV 08/02/20 14:48 5 mls/min Q6 PRN Administration Nausea And Vomiting Insulin Aspart 0 units 07/03/20 07:30 07/07/20 07:56 Insulin Aspart 100 Units/Ml 3 Ml Pen SC 08/02/20 07:29 Not Given ACHS LC Ketorolac Tromethamine 30 mg 07/03/20 14:54 07/07/20 08:01 Ketorolac 30 Mg/Ml Vial IV 07/08/20 14:53 30 mg Q6H PRN Administration Pain Lidocaine 1 patch 07/02/20 23:35 07/06/20 20:35 Lidocaine 5% 1 Patch TD 08/01/20 23:34 Not Given HS LC Midodrine 2.5 mg 07/04/20 22:05 07/07/20 07:54 Midodrine Hcl 2.5 Mg Tab PO 08/03/20 22:04 2.5 mg TID@0800,1200,1700 LC Administration Miscellaneous 1 ea 07/03/20 09:00 07/07/20 07:56 Remove Lidoderm Patch N/A 08/02/20 08:59 1 ea QAM LC Administration Miscellaneous 15 - 30 gm 07/03/20 06:06 07/05/20 11:28 Carbohydrates For Hypoglycemia PO 08/02/20 06:05 15 gm UD PRN Administration Hypoglycemia Protocol Oxycodone HCl 5 - 10 mg 07/03/20 01:54 07/07/20 04:10 Oxycodone Hcl Ir 5 Mg Tab (Immediate Release) PO 07/17/20 01:53 5 mg QID PRN Administration Pain Pantoprazole Sodium 40 mg 07/03/20 09:00 07/07/20 07:54 Pantoprazole 40 Mg Tab PO 08/02/20 08:59 40 mg BID LC Administration Umeclidinium/Vilanterol 1 puffs 07/03/20 09:00 07/07/20 07:55 Umeclidinium/Vilanterol 62.5/25mcg 7 Puffs/Inhaler INH 08/02/20 08:59 1 puffs QAM LC Administration Past Medical History Medical History Acute kidney injury Acute shoulder pain Now a constant ache - no prescription meds needed Anxiety Chronic venous insufficiency follows with vascular (Dr. Carlson) CKD (chronic kidney disease), stage III COPD with emphysema Dentalgia Depression Hypertension Hypokalemia Kidney stones LAD (lymphadenopathy), mediastinal Major depressive disorder, recurrent episode with anxious distress Daughter from OD in 2015 Migraine Nausea & vomiting Neutropenia with fever Nicotine dependence Pancytopenia Polysubstance overdose Hx of 2017 Pulmonary nodule "7 mm RUL nodule, stable 09/25/15 - 09/16/16; repeat 6 mos" Exercise / Class Metabolic Activity III < 4 Walking/Shop/Light housework Past Family History Family History Grandmother (Maternal) , Passed in 80's of metastatic cancer (unknown primary) No problems noted. Mother , Passed age 93 of natural causes No problems noted. Father , Passed age 97 of natural causes No problems noted. Brother No problems noted. Daughter , Passed age 24 from Over Dose No problems noted. Other No family history of adverse response to anesthesia Past Surgical History Surgical History History of bronchoscopy 10/30/2019 - with EBUS History of cataract surgery 2004 - bilateral History of section 1991 History of colonoscopy unsuccessful (poor bowel prep) History of cystoscopy 2007 - with stent History of dental surgery 02/2019 - Full upper teeth extracted S/P arthroscopy of left knee S/P arthroscopy of right knee Past Anesthesia History No Hx of Anesthesia Complications and No Family Hx of Anesthesia Complications History of PONV No Hx of PONV and No Hx of Motion Sickness Social History Smoking Status: Former smoker tobacco type: cigarettes Hx Alcohol Use: No Hx Substance Use: No substance use type: does not use Physical Exam Vital Signs Last Vital Signs Temp 36.9 C 07/07/20 07:52 Pulse 84 07/07/20 07:52 Resp 20 07/07/20 07:52 BP 140/84 07/07/20 07:52 Pulse Ox 97 07/07/20 07:52 Testing Laboratory Results 07/07/20 05:51 07/07/20 05:51 PT 10.5 Seconds (9.0-12.0) 07/02/20 18:40 INR 1.0 (0.9-1.1) 07/02/20 18:40 APTT 27.8 Seconds (21.0-31.0) 07/02/20 18:40 Hemoglobin A1c 5.4 % (4.5-5.6) 07/03/20 08:23 Blood Type O Positive 07/02/20 19:25 Antibody Screen NEGATIVE 07/02/20 19:25 07/02/20 23:40 Aerobic Blood Culture - Preliminary Blood No growth in Aerobic bottle after 48 hours. Anaerobic Blood Culture - Preliminary No growth in Anaerobic bottle after 48 hours. 07/02/20 23:58 Aerobic Blood Culture - Preliminary Blood No growth in Aerobic bottle after 48 hours. Anaerobic Blood Culture - Preliminary No growth in Anaerobic bottle after 48 hours. 07/07/20 07:47 POC Glucose 86 Electrocardiogram Date: 07/02/20 Findings: + NSR @ (at 81) and + NSST changes Chest X-Ray Date: 06/15/20 Findings: + pleural effusion (small right) Echocardiogram Date: 07/03/20 EF: 55% LV Function: normal Other Findings: + LVH (mild) WI
[2020-07-07] MEDS ORDERED: ePHEDrine sulfate 50 MG/ML AMP IV PRN (10:12)
[2020-07-07] MEDS ORDERED: ATROPINE SULFATE 0.1 MG/ML 10ML SYR IV PRN (10:12)
--- NOTE | 2020-07-07 10:36 | Anesthesiology Progress Note ---
Date of Service July 07, 2020 Anesthesia Post Procedure Vital Signs Vital Signs: Temp Pulse Pulse Resp BP BP Pulse Ox 07/07/20 10:07 36.6 C 81 22 145/93 H 96 07/07/20 07:52 36.9 C 84 20 140/84 97 07/07/20 07:30 78 07/07/20 03:59 36.9 C 68 18 123/76 96 07/07/20 00:00 36.6 C 69 77 18 114/78 93 07/06/20 19:47 36.8 C 81 18 104/71 95 07/06/20 15:45 78 07/06/20 15:06 36.6 C 78 18 107/71 92 07/06/20 10:55 36.6 C 83 16 92/62 L 93 Pain Intensity Right Abdomen: Pain Intensity: 7 Right Chest: Pain Intensity: 7 Transfer of Care Handoff Completed per policy Notes Mental Status: alert / awake / arousable Patient Amnestic to Procedure: Yes Nausea / Vomiting: adequately controlled Pain: adequately controlled Airway Patency, RR, SpO2: stable & adequate BP & HR: stable & adequate Hydration State: stable & adequate Anesthetic Complications: no major complications apparent
--- NOTE | 2020-07-07 15:26 | Discharge Summary ---
Date of Service July 07, 2020 Admission HPI Per Admitting Provider Chief Complaint: Right-sided chest pain, cough as per patient Confusion, word finding difficulty, slurred speech as per records. Primary Care Provider: Hany Glaser MD History obtained from patient and records. Medical history significant for CVA, orthostatic hypotension on fludrocortisone Rx, small cell lung cancer sp chemoradiation, mood disorder, chronic anemia (baseline hemoglobin 9), RUE DVT on Eliquis, past tobacco abuse. Last confinement 3 weeks ago for right-sided chest wall pain attributed to musculoskeletal pathology. Patient noted worsening achy right-sided chest pain yesterday followed by junky cough symptoms with shortness of breath. Fair appetite as per patient. Patient not sure about aspiration. Patient noted by to be somewhat confused in early afternoon having trouble getting words out and later noted to have slurred speech. SBP 60s to 70s upon arrival at the ER. IVF bolus, hydrocortisone administered at the ER. SBP currently 110s. Improving speech as per patient. 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 Admission Exam Per Admitting Provider GENERAL: Slightly uncomfortable, dysarthric, no respiratory distress SKIN: Pallor, warm HEENT: Pale palpebral conjunctivae, no ptosis, dry buccal mucosa NECK : Supple, no tenderness CHEST : CTA, left chest wall tenderness HEART : RRR, no obvious murmurs ABDOMEN: Some distention, nontender EXTREMITIES : No LE swelling/tenderness, no other conspicuous deformities noted NEUROLOGIC : Coherent, no facial asymmetry, dysarthric, gait and stance not assessed Principal Diagnosis Encephalopathy: Acute on chronic hypotension Sepsis secondary to HCAP/possible aspiration pneumonia, Invanz hx small cell lung cancer hx PVD Hyperlipidemia mood disorder Steroid-induced hyperglycemia Hypokalemia History RUE DVT on Eliquis Past tobacco abuse Esophagitis/Esophageal Spasm Discharge Exam See below Discharge Data Allergies Allergy/AdvReac Type Severity Reaction Status Date / Time mushroom Allergy Severe anaphylaxis Verified 06/15/20 15:32 Penicillins Allergy Severe anaphylaxis, Verified 06/15/20 15:32 facial & throat swelling acetazolamide Allergy Intermediate rash, hives Verified 06/15/20 15:32 mold Allergy Unknown unknown Verified 06/15/20 15:32 reaction sumatriptan AdvReac Intermediate flushing, Verified 06/15/20 15:32 heart racing Consultations 07/02/20 22:18 ED Decision to Admit Stat 07/03/20 01:54 Consult Neurology Routine 07/05/20 11:25 Consult Gastroenterology Routine Current Diagnoses Encephalopathy, unspecified (07/02/20) Chest pain, unspecified (07/02/20) Dysphagia, unspecified (07/02/20) Allergies mushroom Allergy (Severe, Verified 06/15/20 15:32) anaphylaxis Penicillins Allergy (Severe, Verified 06/15/20 15:32) anaphylaxis, facial & throat swelling acetazolamide Allergy (Intermediate, Verified 06/15/20 15:32) rash, hives mold Allergy (Unknown, Verified 06/15/20 15:32) unknown reaction sumatriptan Adverse Reaction (Intermediate, Verified 06/15/20 15:32) flushing, heart racing Height/Weight/Isolation Height 5 ft 8 in Weight 71.3 kg Chemistry 07/06/20 07/07/20 05:59 05:51 Sodium 143 144 Potassium 3.2 L 3.0 L Chloride 110 H 110 H Carbon Dioxide 31 31 Anion Gap 2.0 L 4.0 BUN 6 L 4 L Creatinine 0.57 L 0.58 L Glucose 76 75 Procedures Performed Operation Date: 07/07/20 15:45 Actual Procedures p EGD Biopsy Cytology - Willow Fernandes, DO Ordered Studies 07/02/20 19:16 CT angio head w con Stat CT angio neck with con Stat CT head/brain wo con Stat 07/02/20 19:53 CT angio chest dissec wo/w con Stat 07/02/20 19:55 US point of care ultrasound Stat 07/02/20 22:04 MR brain wo/w con Stat 07/05/20 10:00 FL barium swallow Routine 07/06/20 13:30 US venous doppler UE RT Urgent Hospital Course (1) Encephalopathy: Multifactorial : Acute on chronic hypotension, possible hypovolemia, hx hypotension-, On Midodrine and Fludrocortisone, Taper Fludrocortisone Sepsis secondary to HCAP/possible aspiration pneumonia, Invanz Brain MRI Noted CTA H&N noted hx small cell lung cancer s/p chemoradiation, to address c Onc after DC hx PVD Hyperlipidemia on statin Rx mood disorder, at baseline chronic anemia, hemoglobin better than baseline likely secondary to hemoconcentration Steroid-induced hyperglycemia, probable DM2, hemoglobin A1c of 6.15 December 2019 Hypokalemia secondary to poor p.o. intake, mineralocorticoid Rx History RUE DVT on Eliquis Past tobacco abuse IVF, replace electrolytes Continue fludrocortisone, may need dose titration if hypotension persistent Cultures, Ertapenem Aspiration precautions, swallow eval today Esophagitis/Esophageal Spasm-GI on case, EGD today, DC c hhc/pt/ot Neurochecks TTE noted, No PFO, EF Normal, Brain MRI negative Neurology on case (Dr. Bella recommends aspirin for secondary stroke prevention.) ISS BG goal [id number], update hemoglobin A1c PT/OT eval DVT prophylaxis. Eliquis, resume on DC Full code ROS-No Headache, No Visual Changes, No Nausea, No Vomiting, No Fever, No Chills, No Neck Pain or Stiffness, No Chest Pain, No Palpitations, No SOB, No ALBRIGHT, No Cough, No Sputum, No Wheezing, No Abdominal Pain, No Diarrhea, No Hematemesis, No Hemoptysis, No Unexpected Weight Loss, No Flank pain, No Melena, No Hematochezia, No Frequency, No Urgency, No Burning, No Hematuria, No Rashes, No Diaphoresis. Appetite is Normal Physical Exam Gen-AAO x 3, NAD, Afebrile, Dysarthric from not having Dentures Head-NCAT, EOMI, PERRLA, Anicteric Sclera, No Posterior Pharyngeal Erythema Neck-Supple, No JVD, No Thyromegaly, No Masses, No LAD, No Bruits Lungs-Clear to Auscultation Bilaterally, No Rales, No Rhonchi, No Wheezing, No Crepitus Chest-No S4, +S1, +S2, No S3, No Murmurs, No Rubs, No Gallops, No Ectopy Abdomen-Soft, Bowel Sounds Present, Non Tender, Non Distended, No Hepatomegaly, No Splenomegaly, No Palpable Masses, No Rebound, No Rigidity, No Guarding Musculoskeletal-Full Range of Motion Bilaterally, No CVAT Extremities-No Cyanosis, No Clubbing, No Edema Nuero-Cranial Nerves II-XII grossly intact, Motor WNL, DTRs WNL, Strength WNL, Non Focal Psych-Normal Mood Total Time Total Time Spent Total Time Spent (In Minutes): 45 min Total Time Includes: Examination of the Patient, Discharge Planning, Medication Reconciliation and Communication With Other Providers Discharge Plan Discharge Items Patient Disposition: Home - Home Health Services Reason For Visit: HCAP, SLURRED SPEECH Discharge Diagnosis: Encephalopathy: Acute on chronic hypotension Sepsis secondary to HCAP/possible aspiration pneumonia, Invanz hx small cell lung cancer hx PVD Hyperlipidemia mood disorder Steroid-induced hyperglycemia Hypokalemia History RUE DVT on Eliquis Past tobacco abuse Esophagitis/Esophageal Spasm Condition on Discharge: Good Health Concerns: Esophagitis, Blood Pressure Activity: Resume your previous activity Lifting: Gradually increase as tolerated Bathing: No limitations Sexual Activity: When tolerated Exercise/Sports: Gradually increase as tolerated Driving/Machine Use: No limitations Weightbearing: Full weightbearing Non-emergency contact: Primary Care Provider, Digital Intern, Neurologist and Oncologist Call non-emergency contact if: you have any medication questions Follow-up/Referrals: [facility],Home Healthcare [Non-Staff] - Hany Glaser MD [Primary Care Provider] - (Date & Time 07/12/2020 3:40 PM Provider Kim Adler MD [facility] ) Rosette Bella MD [Physician] - (2-3 weeks) Willow Fernandes DO [Physician] - (2-3 weeks) Diet: Carb Consistent or DM2 and Heart Healthy Addtl Attending Provider Instructions: Need referral to Vascular Neurosurgery for Carotid Stenosis Call your Oncologist this week for the first opening Pending Studies at Discharge: No Stand-Alone Forms: Medications to Prevent Stroke, My [facility], Opioid Pain Management, Smoking Cessation Medications and DC Order Prescriptions: New aspirin 81 mg Tablet,Delayed Release (Dr/Ec) 81 mg PO QAM Qty: 90 RF: 0 midodrine 2.5 mg Tablet 2.5 mg PO TID@0800,1200,1700 Qty: 90 RF: 0 lidocaine 5 % Adhesive Patch,Medicated 1 patch transdermal HS PRN (Reason: Pain) Qty: 30 RF: 0 fludrocortisone 0.1 mg Tablet 0.1 mg PO BID Qty: 60 RF: 0 oxycodone 5 mg Tablet 5 - 10 mg PO QID PRN (Reason: pain) Qty: 30 RF: 0 fludrocortisone 0.1 mg Tablet 0.1 mg PO DAILY Qty: 10 RF: 0 Continued albuterol sulfate 90 mcg/actuation HFA aerosol inhaler 2 puff INH Q6H PRN (Reason: Shortness Of Breath Or Wheezing) Qty: 18 RF: 3 duloxetine 60 mg capsule,delayed release(DR/EC) 60 mg PO QAM RF: 0 omeprazole 20 mg capsule,delayed release(DR/EC) 20 mg PO BID 30 Days Qty: 60 RF: 3 magnesium oxide 400 mg (241.3 mg magnesium) Tablet 400 mg PO BID Qty: 60 RF: 0 atorvastatin 40 mg tablet 40 mg PO HS RF: 0 ondansetron 8 mg tablet,disintegrating 8 mg PO Q8H PRN (Reason: Nausea And Vomiting) RF: 0 fludrocortisone 0.1 mg tablet 0.1 mg PO BID RF: 0 Eliquis 2.5 mg tablet 2.5 mg PO BID RF: 0 Anoro Ellipta 62.5-25 mcg/actuation blister with device 1 puffs INH QAM RF: 0 gabapentin 100 mg capsule 100 mg PO TID RF: 0 cyclobenzaprine 10 mg tablet 10 mg PO TID PRN (Reason: Muscle Spasm) RF: 0 Changed acetaminophen [Tylenol Extra Strength] 500 mg Tablet 500 mg PO Q4H PRN (Reason: Fever Or Pain) Qty: 0 RF: 0 Discontinued oxycodone 10 mg tablet 10 mg PO Q6H PRN (Reason: Pain, Moderate) RF: 0 Discharge Orders: Discharge Order (Routine); Ordered 07/07/20 Ordered By: Jack Alvarez Admission Data Admit Date/Time: 07/02/20 23:36 Attending Provider: Jack Alvarez Admit Provider: Joe Goldsmith Primary Care Provider: Hany Glaser Other Providers: Joe Goldsmith ; Rosette Bella ; [facility],Home Healthcare ; Willow Fernandes
[2020-07-07] MEDS: HEPARIN 100 UNIT/ML 5ML FLUSH FLUSH PRN (16:32)
[2020-07-08] MEDS ORDERED: FLUDROCORTISONE ACETATE 0.1 MG TAB PO SCH (09:00)
--- NOTE | 2020-07-13 08:41 | Coding Query ---
To promote full compliance with coding requirements relating to patient care, provider participation is requested in all cases of mattress finisher uncertainty. Please assist us with the question(s) below: Coding Question(s): The diagnosis(es) below was documented in the early record and/or Neurology Progress Notes, then subsequently fell off all further documentation. Please indicate if it is still a possible diagnosis or ruled out. Physician's Response(s): TIA ( ) Diagnosed and POA ( ) Diagnosed and not POA ( x ) Ruled out ( ) Other (please specify) CVA ( ) Diagnosed and POA ( ) Diagnosed and not POA ( x ) Ruled out ( ) Other (please specify) MTDD
--- NOTE | 2020-08-23 10:19 | GI REPORT ---
Patient Name: Marcus Fischer Procedure Date: 07/07/2020 10:02 AM Date of : 1955 Admit Type: Inpatient Age: 64 Gender: Female Attending MD: Willow Fernandes DO Procedure: Upper GI endoscopy Providers: Willow Fernandes DO Referring MD: Referred SelfHanyterjessica Indications: Generalized abdominal pain, Dysphagia Medicines: General Anesthesia Complications: No immediate complications. Estimated blood loss: Minimal. Estimated Blood Loss: Estimated blood loss was minimal. Procedure: Pre-Anesthesia Assessment: - Prior to the procedure, a History and Physical was performed, and patient medications, allergies and sensitivities were reviewed. The patient's tolerance of previous anesthesia was reviewed. - The risks and benefits of the procedure and the sedation options and risks were discussed with the patient. All questions were answered and informed consent was obtained. - Patient identification and proposed procedure were verified prior to the procedure by the physician and the nurse. The procedure was verified in the pre-procedure area in the procedure room. - Mental Status Examination: alert and oriented. Airway Examination: normal oropharyngeal airway and neck mobility. Respiratory Examination: clear to auscultation. CV Examination: normal. Abdominal Examination: bowel sounds present, abdomen soft and non-tender, no masses or organomegaly noted. - ASA Grade Assessment: III - A patient with severe systemic disease. After obtaining informed consent, the endoscope was passed under direct vision. Throughout the procedure, the patient's blood pressure, pulse, and oxygen saturations were monitored continuously. The Endoscope was introduced through the mouth, and advanced to the third part of duodenum. The upper GI endoscopy was accomplished without difficulty. The patient tolerated the procedure well. Findings: One esophageal ulcer with no bleeding and no stigmata of recent bleeding was found at the gastroesophageal junction. Biopsies were taken with a cold forceps for histology. Verification of patient identification for the specimen was done by the physician and nurse using the patient's name and date. Estimated blood loss was minimal. Mildly erythematous mucosa was found in the entire examined stomach. Biopsies were taken with a cold forceps for Helicobacter pylori testing. Verification of patient identification for the specimen was done by the physician and nurse using the patient's name and date. Estimated blood loss was minimal. The examined duodenum was normal. Impression: - Esophageal ulcer with no bleeding and no stigmata of recent bleeding. Biopsied. - Erythematous mucosa in the stomach. Biopsied. - Normal examined duodenum. Recommendation: - Await pathology results. - [facility]. Willow Fernandes D.O. Willow Fernandse, 08/23/2020 10:19:21 AM This report has been signed electronically. Note Initiated On: 07/07/2020 10:02 AM Number of Addenda: 0 I attest to the content of the Intraoperative Record and orders documented therein, exceptions below {[id number]}
== END 2020-07-07 17:43 | disposition home health service (06) | DRG 871 ==
LOC: ED 19:06 → 2N 23:36 → SUATTDRO 23:36 → 2N 07-03 01:33

== ENCOUNTER 2020-07-26 14:22 | Inpatient (IN) ==
[2020-07-26] MEDS ORDERED: HYDROCORTISONE SOD SUCCINATE 100 MG/2 ML VIAL IV STA (15:04)
[2020-07-26] MEDS ORDERED: SODIUM CHLORIDE 0.9% 1000ML 1,000 ML IV ONE (15:04)
[2020-07-26] MEDS ORDERED: CEFEPIME 2,000 MG in SYRINGE 0 ML IV STA (15:13)
[2020-07-26] MEDS ORDERED: MIDODRINE HCL 2.5 MG TAB PO STA (15:14)
[2020-07-26 15:28] LABS: Basophils # (auto) 0.01 K/uL (0-0.2); Basophils % (auto) 0.1 %; Eosinophils % (auto) 1.2 %; Hemoglobin 7.2 g/dL (12.0-16.0); Immature Granulocytes # (auto) 0.02 K/uL (0.00-0.02); Immature Granulocytes % (auto) 0.2 %; Lymphocytes # (auto) 0.78 K/uL (1.2-3.4); Lymphocytes % (auto) 9.4 %; Mean Corpuscular Hemoglobin 33.3 pg (25-34); Mean Corpuscular Hgb Conc 34.3 g/dL (32-36); Mean Corpuscular Volume 97.2 fL (80-100); Mean Platelet Volume 10.1 fL (7.4-10.4); Monocytes # (auto) 0.33 K/uL (0.11-0.59); Neutrophils # (auto) 7.09 K/uL (1.4-6.5); Neutrophils % (auto) 85.1 %; Platelet Count 122 K/uL (130-400); RDW Standard Deviation 53.4 fL (36.4-46.3); Red Blood Count 2.16 M/uL (4.2-5.4); White Blood Count 8.33 K/uL (4.8-10.8)
[2020-07-26 15:28] LABS: iSTAT Creatinine 0.7 mg/dl (0.6-1.3); iSTAT Hemoglobin 7.5 g/dl (12.0-16.0); iSTAT Ionized Calcium 1.13 mmol/l (1.12-1.32); iSTAT Potassium 2.6 mmol/L (3.3-5.0)
[2020-07-26] MEDS ORDERED: OPTIRAY 320 100ml IV ONE (15:38)
[2020-07-26 15:41] LABS: INR 1.1 (0.9-1.1); Partial Thromboplastin Ratio 1.1; Partial Thromboplastin Time 27.7 Seconds (21.0-31.0); Prothrombin Time 11.4 Seconds (9.0-12.0)
[2020-07-26 15:46] LABS: Ovalocytes 1+; Polychromasia 1+
[2020-07-26 15:48] LABS: Alanine Aminotransferase 12 U/L (12-78); Albumin Level 1.6 gm/dl (3.4-5.0); Aspartate Aminotransferase 20 U/L (15-37); Blood Urea Nitrogen 8 mg/dl (7-18); Calcium 7.7 mg/dl (8.5-10.1); Carbon Dioxide 30 mmol/L (21-32); Chloride 106 mmol/L (98-107); Est GFR (African American) 113.4; Est GFR (Non-African American) 97.8; Glucose 91 mg/dl (70-99); Magnesium 1.3 mg/dl (1.8-2.4); Potassium 2.7 mmol/L (3.5-5.1); Sodium 142 mmol/L (136-145)
--- NOTE | 2020-07-26 15:50 | CT Scan Report ---
HEAD CT NONCONTRAST CT DOSE: HISTORY: Altered mental status. TECHNIQUE: Multiaxial CT images of the head were performed without the use of intravenous contrast. A utomated exposure control was utilized for this study. A dose lowering technique was utilized adheri ng to the principles of ALARA. Comparison: Head CT 07/02/2020. Findings: Stable retention cyst/polyp within the left maxillary sinus. The mastoid air cells are amelia r. Mild motion artifact. The calvarium and skull base are intact. The ventricles and sulci are within normal limits. There is no mass, hematoma, midline shift, or acute infarct. Impression: No acute intracranial abnormality. ACT 112: Negative or not required by law. Electronically signed by: Avni Gongora M.D. 07/26/2020 3:46 PM
[2020-07-26 15:53] LABS: Albumin Globulin Ratio 0.4 (0.9-2); Alkaline Phosphatase 92 U/L (45-117); Bilirubin,Total 0.6 mg/dl (0.2-1); Total Protein 5.6 gm/dl (6.4-8.2); Troponin I < 0.015 ng/ml (0-0.045)
--- NOTE | 2020-07-26 15:57 | CT Scan Report ---
CT OF THE CHEST WITH IV CONTRAST CLINICAL HISTORY: Altered mental status. Hypotension. History of lung cancer. COMPARISON STUDY: Chest CT July 02, 2020. TECHNIQUE: Following IV administration of 87 mL of Optiray, helical axial images of the chest were o btained. Sagittal and coronal reconstructions were viewed as well as maximal intensity projections o n an independent 3-D workstation. Automated exposure control was utilized for the study. A dose low ering technique was utilized adhering to the principles of ALARA. CT DOSE: 1950.33 mGy.cm FINDINGS: Note is again made of thrombus within the SVC adjacent to the tip of the right internal ju gular [id number]. This was shown on earlier exams. The size of the heart is normal. There is a tra ce pericardial effusion. A trace right pleural effusion is noted. There is no pneumothorax. Moderate emphysema is present. Moderate multifocal airspace opacities within the right lung have increased sin ce CT of July 02, 2020. A few mildly enlarged mediastinal lymph nodes are noted, including a right p aratracheal lymph node that measures 1 cm short axis diameter. This is slightly increased in size sin ce prior examination. This is indeterminate. Mild esophageal wall thickening is again noted. This was shown on prior examination. The abdomen and pelvis will be reported separately. Old T11 compression fracture is noted as well as an old sternal fracture. IMPRESSION: 1. Increase in moderate multifocal right lung airspace opacities which favor an infectious process okeefe ch as multifocal pneumonia. Radiographic follow-up to ensure resolution is recommended. 2. Several mildly enlarged mediastinal lymph nodes which are nonspecific and can be assessed on subse quent exams. 3. Redemonstration of thrombus within the SVC adjacent to the tip of the right internal jugular Infus e-a-Port. This was shown on earlier exams. 4. Trace pericardial effusion and trace right pleural effusion. ACT 112: Negative or not required by law. Electronically signed by: Ildefonso Alarcon M.D. 07/26/2020 3:56 PM
--- NOTE | 2020-07-26 16:00 | CT Scan Report ---
CT SCAN OF THE ABDOMEN AND PELVIS WITH IV CONTRAST CLINICAL HISTORY: Change in mental status. Lung cancer. COMPARISON STUDY: Abdominal CT dated 05/11/2020. PET/CT dated 06/02/2020. Chest CT dated 07/02/2020. TECHNIQUE: Following the IV administration of 87 cc of Optiray 320, CT scan of the abdomen and pelvi s is performed from the lung bases to the proximal femora. Images are reviewed in the axial, sagittal , and coronal planes. IV contrast was administered without complication. A dose lowering technique wa s utilized adhering to the principles of ALARA. The examination is degraded by motion artifact, as we ll as by streak artifact from the arms which could not be elevated above the abdomen. FINDINGS: Lung bases: The heart is normal in size noting a small pericardial effusion. Emphysema is noted. Patc hy airspace consolidation is seen throughout the right lower lobe there is bibasilar scarring/atelect asis. No pleural effusion is identified. A small hiatal hernia is noted. Liver: The contrast-enhanced liver is normal in size, contour, and attenuation. There is no intrahepa tic biliary ductal dilatation. The hepatic veins and portal veins are patent. Gallbladder: Unremarkable. Spleen: Normal in size and attenuation. Pancreas: Moderately atrophic and grossly unremarkable. Adrenal glands: Unremarkable. Kidneys: The contrast enhanced kidneys demonstrate cortical atrophy and are without hydronephrosis. T he kidneys enhance symmetrically. Abdominal vasculature: There is advanced atherosclerotic calcification and mild ectasia of the abdomi nal aorta. Bowel: There is no bowel obstruction. The appendix is well-visualized and normal. Peritoneum: There is no intraperitoneal free air or abdominal ascites. Lymphadenopathy: None. Pelvic viscera: The bladder, uterus, and adnexa are normal as visualized. Skeletal structures: The skeletal structures are osteopenic. There is a mild subacute appearing compr ession fracture of T11. Mild to moderate lumbosacral spondylosis is observed. No lytic or blastic les ions are seen. IMPRESSION: 1. Patchy airspace consolidation throughout the right lower lobe has significantly increased as javier red to 07/02/2020. The appearance is typical for pneumonia/aspiration pneumonitis. Clinical correlatio n will be required and radiographic follow-up to resolution is recommended. 2. There are no acute infectious or inflammatory findings in the abdomen or pelvis. 3. There is a mild subacute appearing superior endplate compression fracture of T11. This is unchange d from recent prior studies. 4. Additional findings as above. ACT 112: Negative or not required by law. Electronically signed by: Cruz Nj M.D. 07/26/2020 3:59 PM
[2020-07-26] MEDS ORDERED: SODIUM CHLORIDE 0.9% 250 ML IV PRN (16:06)
[2020-07-26] MEDS ORDERED: MAGNESIUM SULFATE / D5W 1 GM/100 ML BAG IV STA (16:08)
--- NOTE | 2020-07-26 16:23 | History & Physical Report ---
Date of Service July 26, 2020 Assessment & Plan (1) Sepsis: (2) Hypoxia: This is a 64-year-old female who was significant past medical history of right small cell lung CA followed by Dr. Hebert status post 2 cycles of chemotherapy with cisplatin and etoposide along with radiation, history of CVA, DVT, hypotension treated with Florinef and midodrine, GERD and radiation esophagitis who presents to ED secondary to AMS x 1 day. Pt meets Sepsis per current CMS guidelines 2/2 to tachycardia, AMS, hypotension source: likely Pneumonia blood and urine cultures ordered received 1L of IVF in ED with improvement in BP along with midodrine. Started on 2nd liter. received IV Cefepime pt with chest ct today compared to 07/02 which shows interval increase in opacity along with hypoxia admit to PCU continue broad spectrum IV antibiotics with cefepime, doxy and flagyl continue IVF 80cc/hr encourage pulmonary toilet, duoneb, incentive spirometry await cultures pt may benefit for 2 step prior to d/c to determine home O2 needs given lung ca (3) Hypokalemia: k 2.7 k rider 10meq x 2 in ED 40meq oral ordered along with 2 additional K riders repeat at 9pm (4) Hypomagnesemia: replete, received 2 grams IV mag in ED repeat at 9p (5) Small cell lung cancer in adult: follows Dr. Hebert s/p 2 cycles of chemo cisplatin and etoposide along with xrt follows [facility] radiation oncology, recent follow up recommended prophylactic brain xrt but pt currently not stable enough follows Dr. Hebert currently not undergoing active treatment (6) Hypotension: chronic hypotension, pt runs 90s-100s systolically continue florinef and midodrine bps improved now to 90s continue IVF, 1 unit PRBC to be transfused (7) Anemia: H&H 7.2 and 21.0 - which is a drop from 9.1 on previous admission No signs or symptoms of bleeding FOBT all stools 1 unit PRBC ordered in E.D likely in setting of chronic disease/malignancy obtain anemia work up (8) Depression: consult psych pt appears very depressed, minimal support and ongoing cancer diagnosis frequent crying during examination (9) CVA (cerebral vascular accident): hx of CVA L cereberal hem 12/2019 continue eliquis, statin, asa recent MRI brain negative for acute cva and metastatic disease (10) DVT prophylaxis: continue eliquis - pt currently on 2.5mg bid; however per criteria should be on 5mg BID - will adjust CT Chest: Redemonstration of thrombus within the SVC adjacent to the tip of the right internal jugular [id number]. This was shown on earlier exams. continue eliquis Hypoalbuminemia consult chief wharfinger alb 1.6 Dispo: PCU; case management consulted, pt lives alone, unsure safety of patients living arranges given current underlying medical co morbidites PCP: Jailyn FULL CODE Pt was seen and examined in collaboration with Dr. Simpson, please see addendum History of Present Illness Chief Complaint: AMS x 1 day. Primary Care Provider: Hany Glaser MD This is a 64-year-old female who was significant past medical history of right small cell lung CA followed by Dr. Hebert status post 2 cycles of chemotherapy with cisplatin and etoposide along with radiation, history of CVA, DVT, hyp otension treated with Florinef and midodrine, GERD and radiation esophagitis who presents to ED secondary to AMS x 1 day. She was brought in by EMS due to unable to get ahold of patient. EMS was called, found to be hypoxic, hypotensive and confused. She therefore was brought to EMS. Of significance patient hospitalized 07/02 - 07/07 secondary to altered mental status and hypotension. Given her history of CVA she was seen and evaluated by neurology at the time. Confusion had resolved and there was question whether she sustained possible TIA versus altered mental status secondary to hypotension and hypoperfusion versus ischemic event. Neurology at that time recommended outpatient neurosurgery evaluation which has not yet been obtained. She did have an MRI which was negative for metastatic disease. She was started on aspirin in addition to her Eliquis and recommended to maintain good BP control. She underwent EGD which reviewed radiation esophagitis and pt placed on PPI BID. She presents today 2/2 to worsening confusion and hypotension. When she was seen and evaluated she was crying frequently and requesting to go home stating, "I have not family." "I don't care what happens to me." She denies f/c/s, dizziness, lightheaded, chest pain, sob, cough, uri, n/v/d. She lives alone and is currently managing her own medications. Pt states she did not take any medications today and unsure how compliant she is at home. In ED patient's blood pressure was systolically in the 70s. She received 1 L of IV fluid and oral midodrine which improved BP to 90s. She was also ordered 100mg of IV Solu-Cortef. CT chest Concerning for increase in moderate multifocal right lung airspace opacity concerning for infectious process such as multifocal pneumonia. Allergies Allergy/AdvReac Type Severity Reaction Status Date / Time mushroom Allergy Severe anaphylaxis Verified 07/26/20 17:14 Penicillins Allergy Severe anaphylaxis, Verified 07/26/20 17:14 facial & throat swelling acetazolamide Allergy Intermediate rash, hives Verified 07/26/20 17:15 mold Allergy Unknown unknown Verified 07/26/20 17:15 reaction sumatriptan AdvReac Intermediate flushing, Verified 07/26/20 17:15 heart racing Home Medications Medication Instructions Recorded Confirmed Type albuterol sulfate 90 mcg/actuation 2 puff INH Q6H PRN #18 gm 10/23/19 07/26/20 Rx aerosol inhaler duloxetine 60 mg PO QAM 01/03/20 07/26/20 History omeprazole 20 mg PO BID 30 Days #60 cap 01/27/20 07/26/20 Rx magnesium oxide 400 mg PO BID #60 tab 02/07/20 07/26/20 Rx Anoro Ellipta 1 puffs INH QAM 05/29/20 07/26/20 History Eliquis 2.5 mg PO BID 05/29/20 07/26/20 History atorvastatin 40 mg PO HS 05/29/20 07/26/20 History fludrocortisone 0.1 mg PO BID 05/29/20 07/26/20 History ondansetron 8 mg PO Q8H PRN 05/29/20 07/26/20 History cyclobenzaprine 10 mg PO TID PRN 07/02/20 07/26/20 History gabapentin 100 mg PO TID 07/02/20 07/26/20 History acetaminophen [Tylenol Extra 500 mg PO Q4H PRN #0 tab 07/05/20 07/26/20 Rx Strength] aspirin 81 mg PO QAM #90 tab 07/05/20 07/26/20 Rx lidocaine 1 patch TRANSDERMAL HS PRN #30 ea 07/05/20 07/26/20 Rx midodrine 2.5 mg PO TID@0800,1200,1700 #90 07/05/20 07/26/20 Rx tab oxycodone 5 - 10 mg PO QID PRN #30 tab 07/05/20 07/26/20 Rx Past Med/Surg History Medical History (Updated 07/26/20 @ 18:05 by Hillary Noriega PA-C) Acute kidney injury Acute shoulder pain Now a constant ache - no prescription meds needed Anxiety Chronic venous insufficiency follows with vascular (Dr. Carlson) CKD (chronic kidney disease), stage III COPD with emphysema Dentalgia Depression Hypertension Hypokalemia Kidney stones LAD (lymphadenopathy), mediastinal Major depressive disorder, recurrent episode with anxious distress Daughter from OD in 2015 Migraine Nausea & vomiting Neutropenia with fever Nicotine dependence Pancytopenia Polysubstance overdose Hx of 2017 Pulmonary nodule "7 mm RUL nodule, stable 09/25/15 - 09/16/16; repeat 6 mos" Surgical History History of bronchoscopy 10/30/2019 - with EBUS History of cataract surgery 2004 - bilateral History of section 1991 History of colonoscopy unsuccessful (poor bowel prep) History of cystoscopy 2007 - with stent History of dental surgery 02/2019 - Full upper teeth extracted S/P arthroscopy of left knee 1989' S/P arthroscopy of right knee Family History Grandmother (Maternal) , Passed in 80's of metastatic cancer (unknown primary) No problems noted. Mother , Passed age 93 of natural causes No problems noted. Father , Passed age 97 of natural causes No problems noted. Brother No problems noted. Daughter , Passed age 24 from Over Dose No problems noted. 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 [employer] Feels Safe at Home: Yes Childhood Exposure to Second-Hand Smoke: No caffeine: Yes (2 cups of coffee/day ) during the past year weight has: remained stable Dental Care, Regularly: Yes Assistive Devices: Glasses Review of Systems Review of Systems: All systems reviewed & are unremarkable except as noted in HPI & below Physical Exam Physical Exam: Constitutional: WD/WN, chronically ill appearing F, frequent crying, vitals as above, answers questions approp Head: Normocephalic, Atraumatic Eyes: PERRL, conjunctivae normal, anicteric sclerae, ENMT: external ear and nose normal, oropharynx normal dry membranes, edentulous Neck: trachea midline, no thyromegaly normal visual inspection Respiratory: normal respiratory effort, lungs clear to auscultation, bibasilar crackles, rales, rhonchi. Normal insp/exp effort, no accessory muscle use Cardiovascular: tachycardic rate, regular rhythm, no murmur, b/l nonpitting edema, chronic per patient Vessels: no JVD or carotid bruit Chest: normal inspection of chest , Port RACW Abdomen: normal bowel sounds, soft, nontender, no hepatosplenomegaly Musculoskeletal: no cyanosis or clubbing, AROM x 4 Skin: no rashes, bruising on b/l upper and lower ext, warm and dry normal turgor Neurologic: PERRL, EOMI, accommodation nl, no face palsy, no dysarthria CN's II-XI intact bilaterally and moves all extremities Psychiatric: A+Ox3, euthymic affect : deferred Results & Data Results & Data ([facility]) Vital Signs (Past 12 Hours) Vital Signs Temp Pulse Resp BP Pulse Ox 07/26/20 16:04 16 97 07/26/20 16:00 97 07/26/20 15:52 94 H 18 79/60 L 99 07/26/20 15:45 94 H 19 79/60 L 96 07/26/20 15:16 93 H 13 77/52 L 07/26/20 14:58 101 H 25 H 74/54 L 97 07/26/20 14:56 95 H 35 H 78/55 L 96 07/26/20 14:51 97 H 18 73/54 L 96 07/26/20 14:39 37.0 C 103 H 20 76/57 L 97 07/26/20 14:33 102 H 21 76/57 L 97 Diagnostic Findings Chest X-Ray 07/26/20 15:02 XR chest 1V portable CLINICAL HISTORY: SEPSIS COMPARISON STUDY: 06/16/2020 FINDINGS: There is a right-sided A-Port catheter. There is right hilar prominence, adenopathy not excluded.. There are right lung airspace opacities, likely representing a multifocal pneumonia. There is mild generalized interstitial thickening.[ IMPRESSION: 1. Nodular right lung airspace opacities, likely representing a multifocal pneumonia. Film subsequent to treatment are recommended in follow-up 2. Mild right hilar prominence, adenopathy not excluded ACT 112: Negative or not required by law. Electronically signed by: Derek Vasquez M.D. 07/26/2020 4:31 PM Abdomen/Pelvis CT 07/26/20 15:04 CT SCAN OF THE ABDOMEN AND PELVIS WITH IV CONTRAST CLINICAL HISTORY: Change in mental status. Lung cancer. COMPARISON STUDY: Abdominal CT dated 05/11/2020. PET/CT dated 06/02/2020. Chest CT dated 07/02/2020. TECHNIQUE: Following the IV administration of 87 cc of Optiray 320, CT scan of the abdomen and pelvis is performed from the lung bases to the proximal femora. Images are reviewed in the axial, sagittal, and coronal planes. IV contrast was administered without complication. A dose lowering technique was utilized adhering to the principles of ALARA. The examination is degraded by motion artifact, as well as by streak artifact from the arms which could not be elevated above the abdomen. FINDINGS: Lung bases: The heart is normal in size noting a small pericardial effusion. Emphysema is noted. Patchy airspace consolidation is seen throughout the right lower lobe there is bibasilar scarring/atelectasis. No pleural effusion is identified. A small hiatal hernia is noted. Liver: The contrast-enhanced liver is normal in size, contour, and attenuation. There is no intrahepatic biliary ductal dilatation. The hepatic veins and portal veins are patent. Gallbladder: Unremarkable. Spleen: Normal in size and attenuation. Pancreas: Moderately atrophic and grossly unremarkable. Adrenal glands: Unremarkable. Kidneys: The contrast enhanced kidneys demonstrate cortical atrophy and are without hydronephrosis. The kidneys enhance symmetrically. Abdominal vasculature: There is advanced atherosclerotic calcification and mild ectasia of the abdominal aorta. Bowel: There is no bowel obstruction. The appendix is well-visualized and normal. Peritoneum: There is no intraperitoneal free air or abdominal ascites. Lymphadenopathy: None. Pelvic viscera: The bladder, uterus, and adnexa are normal as visualized. Skeletal structures: The skeletal structures are osteopenic. There is a mild subacute appearing compression fracture of T11. Mild to moderate lumbosacral spondylosis is observed. No lytic or blastic lesions are seen. IMPRESSION: 1. Patchy airspace consolidation throughout the right lower lobe has significantly increased as compared to 07/02/2020. The appearance is typical for pneumonia/aspiration pneumonitis. Clinical correlation will be required and radiographic follow-up to resolution is recommended. 2. There are no acute infectious or inflammatory findings in the abdomen or pelvis. 3. There is a mild subacute appearing superior endplate compression fracture of T11. This is unchanged from recent prior studies. 4. Additional findings as above. ACT 112: Negative or not required by law. Electronically signed by: Cruz Nj M.D. 07/26/2020 3:[address] 07/26/20 15:04 CT OF THE CHEST WITH IV CONTRAST CLINICAL HISTORY: Altered mental status. Hypotension. History of lung cancer. COMPARISON STUDY: Chest CT July 02, 2020. TECHNIQUE: Following IV administration of 87 mL of Optiray, helical axial images of the chest were obtained. Sagittal and coronal reconstructions were viewed as well as maximal intensity projections on an independent 3-D workstation. Automated exposure control was utilized for the study. A dose lowering technique was utilized adhering to the principles of ALARA. CT DOSE: 1950.33 mGy.cm FINDINGS: Note is again made of thrombus within the SVC adjacent to the tip of the right internal jugular [id number]. This was shown on earlier exams. The size of the heart is normal. There is a trace pericardial effusion. A trace right pleural effusion is noted. There is no pneumothorax. Moderate emphysema is present. Moderate multifocal airspace opacities within the right lung have increased since CT of July 02, 2020. A few mildly enlarged mediastinal lymph nodes are noted, including a right paratracheal lymph node that measures 1 cm short axis diameter. This is slightly increased in size since prior examination. This is indeterminate. Mild esophageal wall thickening is again noted. This was shown on prior examination. The abdomen and pelvis will be reported separately. Old T11 compression fracture is noted as well as an old sternal fracture. IMPRESSION: 1. Increase in moderate multifocal right lung airspace opacities which favor an infectious process such as multifocal pneumonia. Radiographic follow-up to ensure resolution is recommended. 2. Several mildly enlarged mediastinal lymph nodes which are nonspecific and can be assessed on subsequent exams. 3. Redemonstration of thrombus within the SVC adjacent to the tip of the right internal jugular [id number]. This was shown on earlier exams. 4. Trace pericardial effusion and trace right pleural effusion. ACT 112: Negative or not required by law. Electronically signed by: Ildefonso Alarcon M.D. 07/26/2020 3:[address] 07/26/20 15:[address] DOSE: HISTORY: Altered mental status. TECHNIQUE: Multiaxial CT images of the head were performed without the use of intravenous contrast. Automated exposure control was utilized for this study. A dose lowering technique was utilized adhering to the principles of ALARA. Comparison: Head CT 07/02/2020. Findings: Stable retention cyst/polyp within the left maxillary sinus. The mastoid air cells are clear. Mild motion artifact. The calvarium and skull base are intact. The ventricles and sulci are within normal limits. There is no mass, hematoma, midline shift, or acute infarct. Impression: No acute intracranial abnormality. ACT 112: Negative or not required by law. Electronically signed by: Avni Gongora M.D. 07/26/2020 3:46 PM Medications Administered Discontinued Medications Ioversol (Optiray 320 100ml) 87 ml IV ONCE ONE Stop: 07/26/20 15:39 Last Admin: 07/26/20 15:38 Dose: 87 ml Documented by: [id number] COVID-19 Results Results COVID-19 Adm Lab Results: RBC 2.16 M/uL (4.2-5.4) L 07/26/20 WBC 8.33 K/uL (4.8-10.8) 07/26/20 Hgb 7.2 g/dL (12.0-16.0) L 07/26/20 Hct 21.0 % (37-47) L 07/26/20 Plt Count 122 K/uL (130-400) L 07/26/20 Neutrophils (%) (Auto) 85.1 % 07/26/20 Lymphocytes (%) (Auto) 9.4 % 07/26/20 Monocytes # (Auto) 0.33 K/uL (0.11-0.59) 07/26/20 Eosinophils # (Auto) 0.10 K/uL (0-0.5) 07/26/20 Immature Granulocyte % (Auto) 0.2 % 07/26/20 Neutrophils # (Auto) 7.09 K/uL (1.4-6.5) H 07/26/20 Lymphocytes # (Auto) 0.78 K/uL (1.2-3.4) L 07/26/20 Monocytes # (Auto) 0.33 K/uL (0.11-0.59) 07/26/20 Eosinophils # (Auto) 0.10 K/uL (0-0.5) 07/26/20 Basophils # (Auto) 0.01 K/uL (0-0.2) 07/26/20 Immature Granulocyte # (Auto) 0.02 K/uL (0.00-0.02) 07/26/20 Polychromasia 1+ 07/26/20 Ovalocytes 1+ 07/26/20 Na 142 mmol/L (136-145) 07/26/20 K 2.7 mmol/L (3.5-5.1) L 07/26/20 Cl 106 mmol/L (98-107) 07/26/20 CO2 30 mmol/L (21-32) 07/26/20 Anion Gap 6.0 (3-11) 07/26/20 BUN 8 mg/dl (7-18) 07/26/20 Creatinine 0.56 mg/dl (0.6-1.2) L 07/26/20 BUN/Creatinine Ratio 14.0 (10-20) 07/26/20 Glucose Level 91 mg/dl (70-99) 07/26/20 Ca 7.7 mg/dl (8.5-10.1) L 07/26/20 Total Bilirubin 0.6 mg/dl (0.2-1) 07/26/20 AST/SGOT 20 U/L (15-37) 07/26/20 ALT/SGPT 12 U/L (12-78) 07/26/20 Alkaline Phosphatase 92 U/L (45-117) 07/26/20 Total Protein 5.6 gm/dl (6.4-8.2) L 07/26/20 Albumin 1.6 gm/dl (3.4-5.0) L 07/26/20 Globulin 4.0 gm/dl (2.5-4.0) 07/26/20 Albumin/Globulin Ratio 0.4 (0.9-2) L 07/26/20 Troponin I < 0.015 ng/ml (0-0.045) 07/26/20 Procalcitonin 0.42 ng/ml (0-0.5) 07/26/20 Ferritin Pending 07/26/20 PTT 27.7 Seconds (21.0-31.0) 07/26/20 INR 1.1 (0.9-1.1) 07/26/20 COVID-19 PCR Pending 07/26/20 Influenza Virus Type A (PCR) Pending 07/26/20 Influenza Virus Type B (PCR) Pending 07/26/[address] 07/26/20 Chest X-Ray 07/26/20 Code Status & VTE Plan Code Status Full Code VTE Prophylaxis Plan VTE Prophylaxis will be ordered: No Reason for no VTE drug order: Treatment not indicated Reason for no VTE mechanical prophylaxis: Treatment not indicated Supervising Physician Co-Signing Physician Notes History obtained from ER physician notable for report of patient being confused by EMS. Patient denies all symptoms on review of systems. Physical exam notable for hypotension [patient is chronically hypotensive on midodrine. However, blood pressures lower than patient's baseline], tachycardic, occasional tachypnea, bilateral crackles posterior lung bases, leg swelling [appears chronic, nonpitting] Lab work notable for hemoglobin of 7.2 [baseline of 9], potassium of 3.7, magnesium of 1.3, troponin is negative, procalcitonin of 0.[address] did not show any acute abnormality Abdominal CT did not show any acute abnormality in the abdomen and pelvis CT chest reports increasing moderate multifocal right lung opacities with several mildly enlarged mediastinal lymph nodes, redemonstration of a thrombus within the SVC adjacent to the tip of the right internal jugular port -Reported confusion -Possible sepsis -Hypokalemia -Hypomagnesemia Per ER physician, patient was reported to be confused by EMS. However, patient does not appear confused at the time of my evaluation. Patient was alert and oriented to person, place and month. Stated that she does not usually remember dates. She understood the diagnosis. Initially, patient was refusing to be admitted. After multiple conversations with patient, she agreed to stay for treatment. Possible sepsis. Possible sources include pneumonia. Patient did have pneumonia/pneumonitis per CT scan from 07/02/2020. However, CT scan today showing increase in the opacities. We will treat with cefepime, Flagyl and doxycycline to cover for anaerobes as well as antipseudomonal coverage considering recent hospitalization. Replete electrolytes aggressively and monitor Patient appears depressed as well. Repeatedly talking about how she has nobody with crying episodes. We will get psychiatry evaluation and recommendations. Patient has a thrombus in SVC which is not new. Patient takes Eliquis 2.5 mg twice daily but due to age and weight can actually tolerate 5 mg twice daily. We will do this for now Agree with other plans as detailed by Hillary Noriega PA-C (1) Hypotension Hypotension type: unspecified hypotension type Qualified Code(s): I95.9 - Hypotension, unspecified
--- NOTE | 2020-07-26 16:32 | XRay Report ---
XR chest 1V portable CLINICAL HISTORY: SEPSIS COMPARISON STUDY: 06/16/2020 FINDINGS: There is a right-sided A-Port catheter. There is right hilar prominence, adenopathy not exc luded.. There are right lung airspace opacities, likely representing a multifocal pneumonia. There is mild generalized interstitial thickening.[ IMPRESSION: 1. Nodular right lung airspace opacities, likely representing a multifocal pneumonia. Film subsequent to treatment are recommended in follow-up 2. Mild right hilar prominence, adenopathy not excluded ACT 112: Negative or not required by law. Electronically signed by: Derek Vasquez M.D. 07/26/2020 4:31 PM
[2020-07-26] MEDS: POTASSIUM CHLORIDE / WTR 10 MEQ/100 ML PLCT IV SCH ×2 (17:17→18:39)
[2020-07-26] MEDS: CEFEPIME 2,000 MG/20 ML VIAL ONE ×2 (17:17→17:18)
--- NOTE | 2020-07-26 17:35 | Communication Note ---
Date of Service: July 26, 2020 History and physical exam performed by me as detailed by Hillary Noriega PA-C History obtained from ER physician notable for report of patient being confused by EMS. Patient denies all symptoms on review of systems. Physical exam notable for hypotension [patient is chronically hypotensive on midodrine. However, blood pressures lower than patient's baseline], tachycardic, occasional tachypnea, bilateral crackles posterior lung bases, leg swelling [appears chronic, nonpitting] Lab work notable for hemoglobin of 7.2 [baseline of 9], potassium of 3.7, magnesium of 1.3, troponin is negative, procalcitonin of 0.[address] did not show any acute abnormality Abdominal CT did not show any acute abnormality in the abdomen and pelvis CT chest reports increasing moderate multifocal right lung opacities with several mildly enlarged mediastinal lymph nodes, redemonstration of a thrombus within the SVC adjacent to the tip of the right internal jugular port -Reported confusion -Possible sepsis -Hypokalemia -Hypomagnesemia Per ER physician, patient was reported to be confused by EMS. However, patient does not appear confused at the time of my evaluation. Patient was alert and oriented to person, place and month. Stated that she does not usually remember dates. She understood the diagnosis. Initially, patient was refusing to be admitted. After multiple conversations with patient, she agreed to stay for treatment. Possible sepsis. Possible sources include pneumonia. Patient did have pneumonia/pneumonitis per CT scan from 07/02/2020. However, CT scan today showing increase in the opacities. We will treat with cefepime, Flagyl and doxycycline to cover for anaerobes as well as antipseudomonal coverage considering recent hospitalization. Replete electrolytes aggressively and monitor Patient appears depressed as well. Repeatedly talking about how she has nobody with crying episodes. We will get psychiatry evaluation and recommendations. Patient has a thrombus in SVC which is not new. Patient takes Eliquis 2.5 mg twice daily but due to age and weight can actually tolerate 5 mg twice daily. We will do this for now Agree with other plans as detailed by Hillary Noriega PA-C
--- NOTE | 2020-07-26 17:57 | Emergency Department Note ---
Impression & Plan AMS (altered mental status), Acute hypotension, Weak ED Provider Note NAME: BREN BELTRAN AGE: 65 SEX: F : 1955 ARRIVES VIA: Ambulance INFORMANT: Patient ED PROVIDER(S): Kj Maxwell DO CHIEF COMPLAINT: Altered mental status HPI: Patient is a 65-year-old female who presents the ER brought in [facility]. Home health could not get a hold of her and consequently they called the police to check on her. They called EMS. They did discuss with the ex- who notes that she has been declining over the past couple days. She was found to be hypotensive per EMS. She notes that she does not want to be here. EMS noted some slurred speech but the caretakers know that this is normal for her. She denies any headache or change in vision. No chest pain or shortness of breath. No nausea vomiting diarrhea. She does admit to some weakness. ROS: See above HPI for pertinent positives & negatives. A total of 10 systems reviewed and were otherwise negative. PAST MEDICAL HISTORY:See Below PAST SURGICAL HISTORY:See Below FAMILY HISTORY:See Below SOCIAL HISTORY:See Below HOME MEDICATIONS:See Below ALLERGIES:See Below VITALS:See Below PHYSICAL EXAMINATION: GENERAL: Lying in bed alert, disheveled, ill-appearing EYE EXAM: normal conjunctiva. PERRL and EOM's grossly intact. OROPHARYNX: Dry mucous membranes NECK: supple, no nuchal rigidity, no adenopathy, non-tender LUNGS: Clear to auscultation. Normal chest wall mechanics HEART: no murmurs, S1 normal and S2 normal ABDOMEN: abdomen soft, non-tender, normo-active bowel sounds, no masses, no r ebound or guarding. UPPER EXTREMITIES: upper extremities are grossly normal. LOWER EXTREMITIES: No pitting edema. NEURO EXAM: Oriented to person and place but not year, cranial nerves II-XII intact, slurred speech, no gross weakness of arms, no gross weakness of legs. MEDICAL DECISION MAKING: Patient is a 65-year-old female who presents ER for confusion. Patient was brought in via EMS as her significant other notes a deterioration over the past couple days. She was found to be extremely hypotensive. IV was established blood work was obtained. Hemoglobin was 7.2. No significant leukocytosis. Platelets were low 122. INR unremarkable. BMP with a hypokalemia 2.7. Mag was low as well. LFTs bilirubin was unremarkable. Troponin was negative. Procalcitonin was negative. Lactic acid was 1. Systolics were initially in the 70s. She was given a bolus of IV fluids, oral midodrine which she is prescribed at home as well as IV steroids. CT of the head, chest and abdomen pelvis shows worsening disease within the chest. Uncertain if this is cancer versus infectious consequently she was covered with IV antibiotics. She was updated bedside. Did consent her at bedside for blood. She was given a unit of PRBCs. Discussed with the hospitalist and be admitted for further work-up. Systolic pressures trended up to 110 with interventions. Urine was pending upon admission. Of note CT of the chest did show small pericardial effusion. Do not believe that this is the cause of the symptoms. She also was found to be hypoxic with a pulse ox of 80% on room air but she normally wears 2 L. She was placed on 4 L nasal cannula in the ER. Triage Nursing notes reviewed. Limited review of prior medical records performed Vital Signs: reviewed and remarkable for hypotension and tachycardia Differential diagnosis: Infection, dehydration, metabolic abnormality, hypo/hyperglycemia, electrolyte disturbance, anemia, hypoxia, cardiac sources, intracerebral event, toxicologic, neurologic, as well as other pathologies. ER treatment provided: See below Diagnostics interpreted by me: ECG: Sinus rhythm rate of 97 Normal axis No PVCs QTC [address] wave changes V4 through V6 Cardiac Monitoring: An order was placed for continuous cardiac monitoring. The monitor shows a rate of 98 with sinus rhythm. Laboratory studies: As stated above and show below. Imaging studies: CTs as discussed above Consultation(s): Discussed with hospitalist for further evaluation Procedures: none Critical Care: I have personally spent 32 minutes of critical care time in the direct management of this patient. This includes bedside care, interpretation of diagnostic studies, and testing, discussion with consultants, patient, and family members, and other required patient management activities. This 32 minutes is in excess of all separately billable procedures. Past Med/Surg History Medical History (Updated 07/26/20 @ 17:51 by Hillary Noriega PA-C) Acute kidney injury Acute shoulder pain Now a constant ache - no prescription meds needed Anxiety Chronic venous insufficiency follows with vascular (Dr. Carlson) CKD (chronic kidney disease), stage III COPD with emphysema Dentalgia Depression Hypertension Hypokalemia Kidney stones LAD (lymphadenopathy), mediastinal Major depressive disorder, recurrent episode with anxious distress Daughter from OD in 2016 Migraine Nausea & vomiting Neutropenia with fever Nicotine dependence Pancytopenia Polysubstance overdose Hx of 2017 Pulmonary nodule "7 mm RUL nodule, stable 09/25/15 - 09/16/16; repeat 6 mos" Surgical History History of bronchoscopy 10/30/2019 - with EBUS History of cataract surgery 2004 - bilateral History of section 1991 History of colonoscopy unsuccessful (poor bowel prep) History of cystoscopy 2007 - with stent History of dental surgery 02/2019 - Full upper teeth extracted S/P arthroscopy of left knee S/P arthroscopy of right knee Family History Grandmother (Maternal) , Passed in 80's of metastatic cancer (unknown primary) No problems noted. Mother , Passed age 93 of natural causes No problems noted. Father , Passed age 97 of natural causes No problems noted. Brother No problems noted. Daughter , Passed age 24 from Over Dose No problems noted. 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 [employer] Feels Safe at Home: Yes Childhood Exposure to Second-Hand Smoke: No caffeine: Yes (2 cups of coffee/day ) during the past year weight has: remained stable Dental Care, Regularly: Yes Assistive Devices: Glasses Allergies Allergies Allergy/AdvReac Type Severity Reaction Status Date / Time mushroom Allergy Severe anaphylaxis Verified 07/26/20 17:14 Penicillins Allergy Severe anaphylaxis, Verified 07/26/20 17:14 facial & throat swelling acetazolamide Allergy Intermediate rash, hives Verified 07/26/20 17:15 mold Allergy Unknown unknown Verified 07/26/20 17:15 reaction sumatriptan AdvReac Intermediate flushing, Verified 07/26/20 17:15 heart racing Home Meds Home Medications Medication Instructions Recorded Confirmed duloxetine 60 mg PO QAM 01/03/20 07/26/20 Anoro Ellipta 1 puffs INH QAM 05/29/20 07/26/20 Eliquis 2.5 mg PO BID 05/29/20 07/26/20 atorvastatin 40 mg PO HS 05/29/20 07/26/20 fludrocortisone 0.1 mg PO BID 05/29/20 07/26/20 ondansetron 8 mg PO Q8H PRN 05/29/20 07/26/20 cyclobenzaprine 10 mg PO TID PRN 07/02/20 07/26/20 gabapentin 100 mg PO TID 07/02/20 07/26/20 Previous Rx's Medication Instructions Recorded albuterol sulfate 90 mcg/actuation 2 puff INH Q6H PRN #18 gm 10/23/19 aerosol inhaler omeprazole 20 mg PO BID 30 Days #60 cap 01/27/20 magnesium oxide 400 mg PO BID #60 tab 02/07/20 acetaminophen [Tylenol Extra 500 mg PO Q4H PRN #0 tab 07/05/20 Strength] aspirin 81 mg PO QAM #90 tab 07/05/20 lidocaine 1 patch TRANSDERMAL HS PRN #30 ea 07/05/20 midodrine 2.5 mg PO TID@0800,1200,1700 #90 07/05/20 tab oxycodone 5 - 10 mg PO QID PRN #30 tab 07/05/20 Results & Data (ED) Vital Signs Vital Signs - 24 hr 07/26/20 14:33 07/26/20 14:39 07/26/20 14:51 Temperature 37.0 C Temperature Source Oral Pulse Rate 102 H 103 H 97 H Pulse Rate from SpO2 Sensor 102 H 97 H Respiratory Rate 21 20 18 Respiratory Effort / Characteristics Non-Labored Respiratory Depth Normal Blood Pressure 76/57 L 76/57 L 73/54 L Blood Pressure Mean 63 63 60 Pulse Oximetry 97 97 96 Oxygen Delivery Method Nasal Cannula Oxygen Flow Rate 2 Sepsis Recent Fever Within 48 Hours No Sepsis New/Unexplained Change in Mental Status N/A Sepsis Action Taken by Nursing Physician Notified 07/26/20 14:56 07/26/20 14:58 07/26/20 15:10 Temperature Temperature Source Pulse Rate 95 H 101 H Pulse Rate from SpO2 Sensor 99 H 101 H Respiratory Rate 35 H 25 H Respiratory Effort / Characteristics Respiratory Depth Blood Pressure 78/55 L 74/54 L Blood Pressure Mean 62 60 Pulse Oximetry 96 97 Oxygen Delivery Method Nasal Cannula Oxygen Flow Rate 4 Sepsis Recent Fever Within 48 Hours Sepsis New/Unexplained Change in Mental Status Sepsis Action Taken by Nursing 07/26/20 15:16 07/26/20 15:45 07/26/20 15:52 Temperature Temperature Source Pulse Rate 93 H 94 H 94 H Pulse Rate from SpO2 Sensor 96 H 95 H Respiratory Rate 13 19 18 Respiratory Effort / Characteristics Respiratory Depth Blood Pressure 77/52 L 79/60 L 79/60 L Blood Pressure Mean 60 66 66 Pulse Oximetry 96 99 Oxygen Delivery Method Oxygen Flow Rate Sepsis Recent Fever Within 48 Hours Sepsis New/Unexplained Change in Mental Status Sepsis Action Taken by Nursing 07/26/20 16:00 07/26/20 16:04 Temperature Temperature Source Pulse Rate Pulse Rate from SpO2 Sensor Respiratory Rate 16 Respiratory Effort / Characteristics Non-Labored Respiratory Depth Blood Pressure Blood Pressure Mean Pulse Oximetry 97 97 Oxygen Delivery Method Nasal Cannula Nasal Cannula Oxygen Flow Rate 2 3 Sepsis Recent Fever Within 48 Hours Sepsis New/Unexplained Change in Mental Status Sepsis Action Taken by Nursing Laboratory Data Result diagrams: 07/26/20 15:02 07/26/20 15:02 Lab Results 07/26/20 07/26/20 07/26/20 Range/Units 15:02 15:02 15:02 WBC 8.33 (4.8-10.8) K/uL RBC 2.16 L (4.2-5.4) M/uL Hgb 7.2 L (12.0-16.0) g/dL POC Hgb (12.0-16.0) g/dl Hct 21.0 L (37-47) % POC Hct (37-47) % MCV 97.2 (80-100) fL MCH 33.3 (25-34) pg MCHC 34.3 (32-36) g/dL RDW Std Deviation 53.4 H (36.4-46.3) fL RDW Coeff of Anjelica 15.0 H (11.5-14.5) % Plt Count 122 L (130-400) K/uL MPV 10.1 (7.4-10.4) fL Immature Gran % (Auto) 0.2 % Neut % (Auto) 85.1 % Lymph % (Auto) 9.4 % [place] % (Auto) 4.0 % Eos % (Auto) 1.2 % Baso % (Auto) 0.1 % Neut # (Auto) 7.09 H (1.4-6.5) K/uL Lymph # (Auto) 0.78 L (1.2-3.4) K/uL [place] # (Auto) 0.33 (0.11-0.59) K/uL Eos # (Auto) 0.10 (0-0.5) K/uL Baso # (Auto) 0.01 (0-0.2) K/uL Immature Gran # (Auto) 0.02 (0.00-0.02) K/uL Polychromasia 1+ Ovalocytes 1+ PT 11.4 (9.0-12.0) Seconds INR 1.1 (0.9-1.1) APTT 27.7 (21.0-31.0) Seconds PTT Ratio 1.1 POC Sodium (135-144) mmol/L Sodium 142 (136-145) mmol/L POC Potassium (3.3-5.0) mmol/L Potassium 2.7 L (3.5-5.1) mmol/L POC Chloride (101-112) mmol/L Chloride 106 (98-107) mmol/L Carbon Dioxide 30 (21-32) mmol/L POC Total CO2 (24-31) mmol/L Anion Gap 6.0 (3-11) POC Anion Gap (16-25) mmol/L POC BUN (7-18) mg/dl BUN 8 (7-18) mg/dl Creatinine 0.56 L (0.6-1.2) mg/dl POC Creatinine (0.6-1.3) mg/dl Est Cr Clr Drug Dosing Not Reportable Est GFR ( Amer) 113.4 Est GFR (Non-Af Amer) 97.8 BUN/Creatinine Ratio 14.0 (10-20) Glucose 91 (70-99) mg/dl POC Glucose (other) (70-99) mg/dl Lactate (0.4-2.0) mmol/L Calcium 7.7 L (8.5-10.1) mg/dl POC Ioniz Calcium Anne-Marie (1.12-1.32) mmol/l Magnesium 1.3 L (1.8-2.4) mg/dl Total Bilirubin 0.6 (0.2-1) mg/dl AST 20 (15-37) U/L ALT 12 (12-78) U/L Alkaline Phosphatase 92 (45-117) U/L Troponin I < 0.015 (0-0.045) ng/ml Total Protein 5.6 L (6.4-8.2) gm/dl Albumin 1.6 L (3.4-5.0) gm/dl Globulin 4.0 (2.5-4.0) gm/dl Albumin/Globulin Ratio 0.4 L (0.9-2) Procalcitonin (0-0.5) ng/ml Blood Type Antibody Screen Crossmatch 07/26/20 07/26/20 07/26/20 Range/Units 15:02 15:14 15:55 WBC (4.8-10.8) K/uL RBC (4.2-5.4) M/uL Hgb (12.0-16.0) g/dL POC Hgb 7.5 L (12.0-16.0) g/dl Hct (37-47) % POC Hct 22 L (37-47) % MCV (80-100) fL MCH (25-34) pg MCHC (32-36) g/dL RDW Std Deviation (36.4-46.3) fL RDW Coeff of Anjelica (11.5-14.5) % Plt Count (130-400) K/uL MPV (7.4-10.4) fL Immature Gran % (Auto) % Neut % (Auto) % Lymph % (Auto) % [place] % (Auto) % Eos % (Auto) % Baso % (Auto) % Neut # (Auto) (1.4-6.5) K/uL Lymph # (Auto) (1.2-3.4) K/uL [place] # (Auto) (0.11-0.59) K/uL Eos # (Auto) (0-0.5) K/uL Baso # (Auto) (0-0.2) K/uL Immature Gran # (Auto) (0.00-0.02) K/uL Polychromasia Ovalocytes PT (9.0-12.0) Seconds INR (0.9-1.1) APTT (21.0-31.0) Seconds PTT Ratio POC Sodium 139 (135-144) mmol/L Sodium (136-145) mmol/L POC Potassium 2.6 L (3.3-5.0) mmol/L Potassium (3.5-5.1) mmol/L POC Chloride 97 L (101-112) mmol/L Chloride (98-107) mmol/L Carbon Dioxide (21-32) mmol/L POC Total CO2 28 (24-31) mmol/L Anion Gap (3-11) POC Anion Gap 17.0 (16-25) mmol/L POC BUN 7 (7-18) mg/dl BUN (7-18) mg/dl Creatinine (0.6-1.2) mg/dl POC Creatinine 0.7 (0.6-1.3) mg/dl Est Cr Clr Drug Dosing Est GFR ( Amer) Est GFR (Non-Af Amer) BUN/Creatinine Ratio (10-20) Glucose (70-99) mg/dl POC Glucose (other) 93 (70-99) mg/dl Lactate 1.0 (0.4-2.0) mmol/L Calcium (8.5-10.1) mg/dl POC Ioniz Calcium Anne-Marie 1.13 (1.12-1.32) mmol/l Magnesium (1.8-2.4) mg/dl Total Bilirubin (0.2-1) mg/dl AST (15-37) U/L ALT (12-78) U/L Alkaline Phosphatase (45-117) U/L Troponin I (0-0.045) ng/ml Total Protein (6.4-8.2) gm/dl Albumin (3.4-5.0) gm/dl Globulin (2.5-4.0) gm/dl Albumin/Globulin Ratio (0.9-2) Procalcitonin 0.42 (0-0.5) ng/ml Blood Type Antibody Screen Crossmatch 07/26/20 Range/Units 16:36 WBC (4.8-10.8) K/uL RBC (4.2-5.4) M/uL Hgb (12.0-16.0) g/dL POC Hgb (12.0-16.0) g/dl Hct (37-47) % POC Hct (37-47) % MCV (80-100) fL MCH (25-34) pg MCHC (32-36) g/dL RDW Std Deviation (36.4-46.3) fL RDW Coeff of Anjelica (11.5-14.5) % Plt Count (130-400) K/uL MPV (7.4-10.4) fL Immature Gran % (Auto) % Neut % (Auto) % Lymph % (Auto) % [place] % (Auto) % Eos % (Auto) % Baso % (Auto) % Neut # (Auto) (1.4-6.5) K/uL Lymph # (Auto) (1.2-3.4) K/uL [place] # (Auto) (0.11-0.59) K/uL Eos # (Auto) (0-0.5) K/uL Baso # (Auto) (0-0.2) K/uL Immature Gran # (Auto) (0.00-0.02) K/uL Polychromasia Ovalocytes PT (9.0-12.0) Seconds INR (0.9-1.1) APTT (21.0-31.0) Seconds PTT Ratio POC Sodium (135-144) mmol/L Sodium (136-145) mmol/L POC Potassium (3.3-5.0) mmol/L Potassium (3.5-5.1) mmol/L POC Chloride (101-112) mmol/L Chloride (98-107) mmol/L Carbon Dioxide (21-32) mmol/L POC Total CO2 (24-31) mmol/L Anion Gap (3-11) POC Anion Gap (16-25) mmol/L POC BUN (7-18) mg/dl BUN (7-18) mg/dl Creatinine (0.6-1.2) mg/dl POC Creatinine (0.6-1.3) mg/dl Est Cr Clr Drug Dosing Est GFR ( Amer) Est GFR (Non-Af Amer) BUN/Creatinine Ratio (10-20) Glucose (70-99) mg/dl POC Glucose (other) (70-99) mg/dl Lactate (0.4-2.0) mmol/L Calcium (8.5-10.1) mg/dl POC Ioniz Calcium Anne-Marie (1.12-1.32) mmol/l Magnesium (1.8-2.4) mg/dl Total Bilirubin (0.2-1) mg/dl AST (15-37) U/L ALT (12-78) U/L Alkaline Phosphatase (45-117) U/L Troponin I (0-0.045) ng/ml Total Protein (6.4-8.2) gm/dl Albumin (3.4-5.0) gm/dl Globulin (2.5-4.0) gm/dl Albumin/Globulin Ratio (0.9-2) Procalcitonin (0-0.5) ng/ml Blood Type O Positive Antibody Screen NEGATIVE Crossmatch See Detail Administered Medications Potassium Chloride (K Heladio / Wtr) 10 meq in 100 mls @ 100 mls/hr IV Q1H LC Stop: 07/26/20 18:14 Last Admin: 07/26/20 17:17 Dose: 100 mls/hr Documented by: [id number] Discontinued Medications Cefepime HCl (Cefepime 2,000 Mg/20 Ml Vial) Confirm Administered Dose 2,000 mg .ROUTE .STK-MED ONE Stop: 07/26/20 17:14 Last Admin: 07/26/20 17:18 Dose: 2,000 mg Documented by: [id number] Admin: 07/26/20 17:17 Dose: 2,000 mg Documented by: [id number] Hydrocortisone Sodium Succinate (Hydrocortisone Sod Succinate 100 Mg/2 Ml Vial) 100 mg IV NOW STA Stop: 07/26/20 15:05 Last Admin: 07/26/20 17:16 Dose: 100 mg Documented by: [id number] Sodium Chloride (Nss 1000ml) 1,000 mls @ 999 mls/hr IV .Q1H1M ONE Stop: 07/26/20 16:04 Last Admin: 07/26/20 17:15 Dose: 999 mls/hr Documented by: [id number] Cefepime HCl 2,000 mg/ Syringe 20 mls @ 5 mls/min IV NOW STA; Protocol Stop: 07/26/20 15:16 Last Admin: 07/26/20 17:18 Dose: 5 mls/min Documented by: [id number] Magnesium Sulfate/Dextrose (Magnesium Sulfate / D5w) 1 gm in 100 mls @ 100 mls/hr IV NOW STA Stop: 07/26/20 17:07 Last Admin: 07/26/20 17:16 Dose: 100 mls/hr Documented by: [id number] Ioversol (Optiray 320 100ml) 87 ml IV ONCE ONE Stop: 07/26/20 15:39 Last Admin: 07/26/20 15:38 Dose: 87 ml Documented by: [id number] Midodrine (Midodrine Hcl 2.5 Mg Tab) 2.5 mg PO NOW STA Stop: 07/26/20 15:15 Last Admin: 07/26/20 15:52 Dose: 2.5 mg Documented by: [id number] Imaging Data Radiologist's Impression: Chest X-Ray 07/26/20 15:02 XR chest 1V portable CLINICAL HISTORY: SEPSIS COMPARISON STUDY: 06/16/2020 FINDINGS: There is a right-sided A-Port catheter. There is right hilar prominence, adenopathy not excluded.. There are right lung airspace opacities, likely representing a multifocal pneumonia. There is mild generalized interstitial thickening.[ IMPRESSION: 1. Nodular right lung airspace opacities, likely representing a multifocal pneumonia. Film subsequent to treatment are recommended in follow-up 2. Mild right hilar prominence, adenopathy not excluded ACT 112: Negative or not required by law. Electronically signed by: Derek Vasquez M.D. 07/26/2020 4:31 PM Abdomen/Pelvis CT 07/26/20 15:04 CT SCAN OF THE ABDOMEN AND PELVIS WITH IV CONTRAST CLINICAL HISTORY: Change in mental status. Lung cancer. COMPARISON STUDY: Abdominal CT dated 05/11/2020. PET/CT dated 06/02/2020. Chest CT dated 07/02/2020. TECHNIQUE: Following the IV administration of 87 cc of Optiray 320, CT scan of the abdomen and pelvis is performed from the lung bases to the proximal femora. Images are reviewed in the axial, sagittal, and coronal planes. IV contrast was administered without complication. A dose lowering technique was utilized adhering to the principles of ALARA. The examination is degraded by motion artifact, as well as by streak artifact from the arms which could not be elevated above the abdomen. FINDINGS: Lung bases: The heart is normal in size noting a small pericardial effusion. Emphysema is noted. Patchy airspace consolidation is seen throughout the right lower lobe there is bibasilar scarring/atelectasis. No pleural effusion is identified. A small hiatal hernia is noted. Liver: The contrast-enhanced liver is normal in size, contour, and attenuation. There is no intrahepatic biliary ductal dilatation. The hepatic veins and portal veins are patent. Gallbladder: Unremarkable. Spleen: Normal in size and attenuation. Pancreas: Moderately atrophic and grossly unremarkable. Adrenal glands: Unremarkable. Kidneys: The contrast enhanced kidneys demonstrate cortical atrophy and are without hydronephrosis. The kidneys enhance symmetrically. Abdominal vasculature: There is advanced atherosclerotic calcification and mild ectasia of the abdominal aorta. Bowel: There is no bowel obstruction. The appendix is well-visualized and normal. Peritoneum: There is no intraperitoneal free air or abdominal ascites. Lymphadenopathy: None. Pelvic viscera: The bladder, uterus, and adnexa are normal as visualized. Skeletal structures: The skeletal structures are osteopenic. There is a mild subacute appearing compression fracture of T11. Mild to moderate lumbosacral spondylosis is observed. No lytic or blastic lesions are seen. IMPRESSION: 1. Patchy airspace consolidation throughout the right lower lobe has significantly increased as compared to 07/02/2020. The appearance is typical for pneumonia/aspiration pneumonitis. Clinical correlation will be required and radiographic follow-up to resolution is recommended. 2. There are no acute infectious or inflammatory findings in the abdomen or pelvis. 3. There is a mild subacute appearing superior endplate compression fracture of T11. This is unchanged from recent prior studies. 4. Additional findings as above. ACT 112: Negative or not required by law. Electronically signed by: Cruz Nj M.D. 07/26/2020 3:[address] 07/26/20 15:04 CT OF THE CHEST WITH IV CONTRAST CLINICAL HISTORY: Altered mental status. Hypotension. History of lung cancer. COMPARISON STUDY: Chest CT July 02, 2020. TECHNIQUE: Following IV administration of 87 mL of Optiray, helical axial images of the chest were obtained. Sagittal and coronal reconstructions were vi ewed as well as maximal intensity projections on an independent 3-D workstation. Automated exposure control was utilized for the study. A dose lowering technique was utilized adhering to the principles of ALARA. CT DOSE: 1950.33 mGy.cm FINDINGS: Note is again made of thrombus within the SVC adjacent to the tip of the right internal jugular [id number]. This was shown on earlier exams. The size of the heart is normal. There is a trace pericardial effusion. A trace right pleural effusion is noted. There is no pneumothorax. Moderate emphysema is present. Moderate multifocal airspace opacities within the right lung have increased since CT of July 02, 2020. A few mildly enlarged mediastinal lymph nodes are noted, including a right paratracheal lymph node that measures 1 cm short axis diameter. This is slightly increased in size since prior examination. This is indeterminate. Mild esophageal wall thickening is again noted. This was shown on prior examination. The abdomen and pelvis will be reported separately. Old T11 compression fracture is noted as well as an old sternal fracture. IMPRESSION: 1. Increase in moderate multifocal right lung airspace opacities which favor an infectious process such as multifocal pneumonia. Radiographic follow-up to ensure resolution is recommended. 2. Several mildly enlarged mediastinal lymph nodes which are nonspecific and can be assessed on subsequent exams. 3. Redemonstration of thrombus within the SVC adjacent to the tip of the right internal jugular [id number]. This was shown on earlier exams. 4. Trace pericardial effusion and trace right pleural effusion. ACT 112: Negative or not required by law. Electronically signed by: Ildefonso Alarcon M.D. 07/26/2020 3:[address] 07/26/20 15:[address] DOSE: HISTORY: Altered mental status. TECHNIQUE: Multiaxial CT images of the head were performed without the use of intravenous contrast. Automated exposure control was utilized for this study. A dose lowering technique was utilized adhering to the principles of ALARA. Comparison: Head CT 07/02/2020. Findings: Stable retention cyst/polyp within the left maxillary sinus. The mastoid air cells are clear. Mild motion artifact. The calvarium and skull base are intact. The ventricles and sulci are within normal limits. There is no mass, hematoma, midline shift, or acute infarct. Impression: No acute intracranial abnormality. ACT 112: Negative or not required by law. Electronically signed by: Avni Gongora M.D. 07/26/2020 3:46 PM Discharge Plan Visit Data Chief Complaint: Altered Mental Status ED Provider: Kj Maxwell Discharge Problem: AMS (altered mental status), Acute hypotension, Weak Forms Stand Alone Forms: My [facility] Prescriptions Prescriptions: No Action albuterol sulfate 90 mcg/actuation HFA aerosol inhaler 2 puff INH Q6H PRN (Reason: Shortness Of Breath Or Wheezing) Qty: 18 RF: 3 duloxetine 60 mg capsule,delayed release(DR/EC) 60 mg PO QAM RF: 0 omeprazole 20 mg capsule,delayed release(DR/EC) 20 mg PO BID 30 Days Qty: 60 RF: 3 magnesium oxide 400 mg (241.3 mg magnesium) Tablet 400 mg PO BID Qty: 60 RF: 0 atorvastatin 40 mg tablet 40 mg PO HS RF: 0 ondansetron 8 mg tablet,disintegrating 8 mg PO Q8H PRN (Reason: Nausea And Vomiting) RF: 0 fludrocortisone 0.1 mg tablet 0.1 mg PO BID RF: 0 Eliquis 2.5 mg tablet 2.5 mg PO BID RF: 0 Anoro Ellipta 62.5-25 mcg/actuation blister with device 1 puffs INH QAM RF: 0 gabapentin 100 mg capsule 100 mg PO TID RF: 0 cyclobenzaprine 10 mg tablet 10 mg PO TID PRN (Reason: Muscle Spasm) RF: 0 aspirin 81 mg Tablet,Delayed Release (Dr/Ec) 81 mg PO QAM Qty: 90 RF: 0 midodrine 2.5 mg Tablet 2.5 mg PO TID@0800,1200,1700 Qty: 90 RF: 0 lidocaine 5 % Adhesive Patch,Medicated 1 patch transdermal HS PRN (Reason: Pain) Qty: 30 RF: 0 oxycodone 5 mg Tablet 5 - 10 mg PO QID PRN (Reason: pain) Qty: 30 RF: 0 acetaminophen [Tylenol Extra Strength] 500 mg Tablet 500 mg PO Q4H PRN (Reason: Fever Or Pain) Qty: 0 RF: 0
[2020-07-26 19:00] LABS: Ferritin 179.3 ng/ml (8-388)
[2020-07-26 19:21] LABS: Influenza A virus by PCR Negative (Neg); Influenza B virus by PCR Negative (Neg); RSV by PCR Negative (Neg); SARS CoV2 RNA(COVID-19) InHosp NEGATIVE (Negative)
[2020-07-26] MEDS ORDERED: MAGNESIUM HYDROXIDE SUSP 30 ML UDC PO PRN (20:38)
[2020-07-26] MEDS ORDERED: POLYETHYLENE (MIRALAX) 17 GM PACK PO PRN (20:38)
[2020-07-26] MEDS ORDERED: POTASSIUM CHLORIDE CRTAB 20 MEQ TABCR PO STA (20:38)
[2020-07-26] MEDS ORDERED: ALBUTEROL HFA 8 GM INHALER INH PRN (20:38)
[2020-07-26] MEDS ORDERED: ALBUT/IPRATROP 3MG/0.5MG NEB 3 ML VIAL NEB PRN (20:38)
[2020-07-26] MEDS ORDERED: ALUMINUM/MAGNESIUM SUSP 30 ML UDC PO PRN (20:38)
[2020-07-26] MEDS ORDERED: ONDANSETRON INJ 2 MG/ML 2 ML VIAL IV PRN (20:38)
[2020-07-26] MEDS ORDERED: ACETAMINOPHEN 325 MG TAB PO PRN (20:38)
[2020-07-26] MEDS ORDERED: ACETAMINOPHEN 500 MG TAB PO PRN (20:38)
[2020-07-26] MEDS ORDERED: oxyCODONE HCL IR 5 MG TAB (IMMEDIATE RELEASE) PO STA (21:35)
[2020-07-26] MEDS ORDERED: LIDOCAINE 5% 1 PATCH TD PRN (21:36)
[2020-07-26] MEDS: PANTOprazole 40 MG TAB PO SCH (22:56)
[2020-07-26] MEDS: FLUDROCORTISONE ACETATE 0.1 MG TAB PO SCH (22:56)
[2020-07-26] MEDS: ATORVASTATIN 40 MG TAB PO SCH (22:56)
[2020-07-26] MEDS: DOXYCYCLINE HYCLATE 100 MG CAP PO SCH (22:56)
[2020-07-26] MEDS: MAGNESIUM OXIDE 400 MG TAB PO SCH (22:56)
[2020-07-26] MEDS: GABAPENTIN 100 MG CAP PO SCH (22:56)
[2020-07-26] MEDS: APIXABAN 5 MG TABLET PO SCH (22:56)
[2020-07-27] MEDS: POTASSIUM CHLORIDE / WTR 10 MEQ/100 ML PLCT IV SCH ×2 (00:18→01:19)
[2020-07-27 00:39] LABS: Calcium 7.7 mg/dl (8.5-10.1); Creatinine Clr Calc Pharmacy 99.3 ml/min; Est GFR (African American) 115.5; Est GFR (Non-African American) 99.6; Magnesium 1.6 mg/dl (1.8-2.4); Potassium 3.1 mmol/L (3.5-5.1)
[2020-07-27 01:12] LABS: Folate (Folic Acid) 5.2 ng/ml (>5.38)
[2020-07-27] MEDS ORDERED: POTASSIUM CHLORIDE CRTAB 20 MEQ TABCR PO STA (01:19)
[2020-07-27] MEDS: MAGNESIUM SULFATE / D5W 1 GM/100 ML BAG IV SCH ×2 (02:24→04:38)
[2020-07-27] MEDS ORDERED: HEPARIN 100 UNIT/ML 5ML FLUSH FLUSH PRN (02:26)
[2020-07-27] MEDS: SODIUM CHLORIDE 0.9% 1000ML 1,000 ML IV SCH ×2 (04:38→10:05)
[2020-07-27] MEDS: metroNIDAZOLE 500 MG/100 ML BAG IV SCH ×4 (04:39→21:28)
[2020-07-27 08:01] LABS: Hematocrit (blood only) 28.8 % (37-47); Hemoglobin 9.6 g/dL (12.0-16.0); Immature Granulocytes # (auto) 0.01 K/uL (0.00-0.02); Immature Granulocytes % (auto) 0.2 %; Lymphocytes # (auto) 0.47 K/uL (1.2-3.4); Lymphocytes % (auto) 7.9 %; Mean Corpuscular Hemoglobin 32.2 pg (25-34); Mean Corpuscular Hgb Conc 33.3 g/dL (32-36); Mean Corpuscular Volume 96.6 fL (80-100); Mean Platelet Volume 10.7 fL (7.4-10.4); Monocytes # (auto) 0.28 K/uL (0.11-0.59); Monocytes % (auto) 4.7 %; Neutrophils # (auto) 5.17 K/uL (1.4-6.5); Neutrophils % (auto) 87.2 %; Platelet Count 151 K/uL (130-400); RDW Coefficient of Variation 15.8 % (11.5-14.5); RDW Standard Deviation 55.5 fL (36.4-46.3); Red Blood Count 2.98 M/uL (4.2-5.4); White Blood Count 5.93 K/uL (4.8-10.8)
[2020-07-27] MEDS: PANTOprazole 40 MG TAB PO SCH ×2 (08:11→21:29)
[2020-07-27] MEDS: FLUDROCORTISONE ACETATE 0.1 MG TAB PO SCH ×2 (08:11→21:29)
[2020-07-27] MEDS: DOXYCYCLINE HYCLATE 100 MG CAP PO SCH ×2 (08:11→21:28)
[2020-07-27] MEDS: MIDODRINE HCL 2.5 MG TAB PO SCH ×3 (08:11→17:09)
[2020-07-27] MEDS: DULoxetine HCL 60 MG CAP PO SCH (08:11)
[2020-07-27] MEDS: MAGNESIUM OXIDE 400 MG TAB PO SCH ×2 (08:11→21:28)
[2020-07-27] MEDS: ASPIRIN 81 MG ECTAB PO SCH (08:11)
[2020-07-27] MEDS: APIXABAN 5 MG TABLET PO SCH ×2 (08:11→21:29)
[2020-07-27] MEDS: GABAPENTIN 100 MG CAP PO SCH ×3 (08:11→21:29)
[2020-07-27] MEDS: oxyCODONE HCL IR 5 MG TAB (IMMEDIATE RELEASE) PO PRN ×4 (08:12→23:01)
[2020-07-27] MEDS: UMECLIDINIUM/VILANTEROL 62.5/25MCG 7 PUFFS/INHALER INH SCH (08:12)
[2020-07-27 08:35] LABS: Albumin Globulin Ratio 0.4 (0.9-2); Albumin Level 1.8 gm/dl (3.4-5.0); BUN Creatinine Ratio 12.4 (10-20); Bilirubin,Total 0.3 mg/dl (0.2-1); Calcium 8.3 mg/dl (8.5-10.1); Creatinine Clr Calc Pharmacy 95.7 ml/min; Est GFR (African American) 114.1; Est GFR (Non-African American) 98.4; Globulin 4.2 gm/dl (2.5-4.0); Magnesium 2.4 mg/dl (1.8-2.4); Phosphorus 2.5 mg/dl (2.5-4.9); Potassium 3.7 mmol/L (3.5-5.1)
--- NOTE | 2020-07-27 11:06 | Hospitalist Progress Note ---
Date of Service July 27, 2020 Assessment & Plan (1) Sepsis: (2) Hypoxia: 64-year-old female who was significant past medical history of right small cell lung CA followed by Dr. Hebert status post 2 cycles of chemotherapy with cisplatin and etoposide along with radiation, history of CVA, DVT, hypotension treated with Florinef and midodrine, GERD and radiation esophagitis who presents to ED secondary to AMS x 1 day. Pt meets Sepsis per current CMS guidelines 2/2 to tachycardia, AMS, hypotension source: likely Pneumonia Follow up blood and urine cultures ordered received 1L of IVF in ED with improvement in BP along with midodrine. Chest ct today compared to 07/02 which shows interval increase in opacity along with hypoxia Continue cefepime, doxy and flagyl Incentive spirometry Will need 2 step prior to d/c to determine home O2 needs (3) Hypokalemia: (4) Hypomagnesemia: On admission k 2.7. Mag 1.3 Repleted K is 3.7, Mg 2.4 this morning (5) Small cell lung cancer in adult: Follows Dr. Hebert s/p 2 cycles of chemo cisplatin and etoposide along with xrt Follows [facility] radiation oncology, recent follow up recommended prophylactic brain xrt but pt currently not stable enough follows Dr. Hebert currently not undergoing active treatment (6) Hypotension: Chronic hypotension, pt runs 90s-100s systolically Continue florinef and midodrine SBP improved now to 90s-100c Stop IVF (7) Anemia: H&H 7.2 and 21.0 - which is a drop from 9.1 on previous admission No signs or symptoms of bleeding FOBT all stools ER gave 1 PRBC likely in setting of chronic disease/malignancy Hb is 9.6 (8) Depression: Patient appears depressed, reports minimal support and ongoing cancer diagnosis though she denies depression ?Depression vs adjustment Has crying bouts Will appreciate psych eval (9) CVA (cerebral vascular accident): Hx of CVA L cereberal hem 12/2019 continue eliquis, statin, asa recent MRI brain negative for acute cva and metastatic disease (10) DVT prophylaxis: Continue eliquis - pt currently on 2.5mg bid; however per criteria should be on 5mg BID Continue eliquis 5mg bid CT Chest: Redemonstration of thrombus within the SVC adjacent to the tip of the right internal jugular [id number]. This was shown on earlier exams. continue eliquis Hypoalbuminemia consult scorer single alb 1.6 Dispo: PCU; case management consulted, pt lives alone, unsure safety of patients living arranges given current underlying medical co morbidites PCP: Jailyn FULL CODE Admission and Anticipated Discharge Date Admission Date: July 26, 2020 Subjective Patient seen and examined. Reports feeling good this morning. Patient denies cough but had coughing bouts during evaluation. Currently on 3 L/min of nasal oxygen Denies chest pain, palpitations Denies headache, dizziness Denies nausea, vomiting, diarrhea, abdominal pain. Reports anorexia this morning Denies dysuria, frequency, urgency, hematuria Denies depression, anxiety, suicidal or homicidal ideation Physical Exam Constitutional: + well hydrated; no acute distress Eyes: PERRL, conjunctivae normal, anicteric sclerae ENMT: external ear and nose normal, oropharynx normal Respiratory: normal respiratory effort; no respiratory distress Auscultation: + crackles On 3l/min nasal oxygen Cardiovascular: Rate/Rhythm: regular rate and regular rhythm S1 S2 Gastrointestinal (Abdomen): normal bowel sounds, soft, nontender, no hepatosplenomegaly Musculoskeletal: Puffy legs non pitting Neurologic: PERRL, EOMI, accommodation nl, no face palsy, no dysarthria Psychiatric: Orientation: alert, oriented to person, oriented to place and cooperative Results & Data Results & Data ([facility]) Vital Signs (Past 12 Hours) Vital Signs Temp Pulse Pulse Resp BP Pulse Ox 07/27/20 08:00 36.4 C L 86 79 18 104/62 98 07/27/20 03:58 36.3 C L 82 18 119/79 90 07/26/20 23:58 36.5 C 87 20 98/61 L 95 Laboratory Results Laboratory Results - last 24 hr 07/26/20 07/26/20 07/26/20 15:02 15:02 15:02 WBC 8.33 RBC 2.16 L Hgb 7.2 L POC Hgb Hct 21.0 L POC Hct MCV 97.2 MCH 33.3 MCHC 34.3 RDW Std Deviation 53.4 H RDW Coeff of Anjelica 15.0 H Plt Count 122 L MPV 10.1 Immature Gran % (Auto) 0.2 Neut % (Auto) 85.1 Lymph % (Auto) 9.4 Bradley % (Auto) 4.0 Eos % (Auto) 1.2 Baso % (Auto) 0.1 Neut # (Auto) 7.09 H Lymph # (Auto) 0.78 L Bradley # (Auto) 0.33 Eos # (Auto) 0.10 Baso # (Auto) 0.01 Immature Gran # (Auto) 0.02 Polychromasia 1+ Ovalocytes 1+ PT 11.4 INR 1.1 APTT 27.7 PTT Ratio 1.1 POC Sodium Sodium 142 POC Potassium Potassium 2.7 L POC Chloride Chloride 106 Carbon Dioxide 30 POC Total CO2 Anion Gap 6.0 POC Anion Gap POC BUN BUN 8 Creatinine 0.56 L POC Creatinine Est Cr Clr Drug Dosing Not Reportable Est GFR ( Amer) 113.4 Est GFR (Non-Af Amer) 97.8 BUN/Creatinine Ratio 14.0 Glucose 91 POC Glucose (other) Lactate Calcium 7.7 L POC Ioniz Calcium Anne-Marie Phosphorus Magnesium 1.3 L Iron TIBC Transferrin Ferritin Total Bilirubin 0.6 AST 20 ALT 12 Alkaline Phosphatase 92 Troponin I < 0.015 Total Protein 5.6 L Albumin 1.6 L Globulin 4.0 Albumin/Globulin Ratio 0.4 L Vitamin B12 Folate Procalcitonin COVID-19 Eval Order SARS-CoV-2 (PCR) Influenza Type A (PCR) Influenza Type B (PCR) RSV (RT-PCR) Blood Type Antibody Screen Crossmatch 07/26/20 07/26/20 07/26/20 15:02 15:02 15:14 WBC RBC Hgb POC Hgb 7.5 L Hct POC Hct 22 L MCV MCH MCHC RDW Std Deviation RDW Coeff of Anjelica Plt Count MPV Immature Gran % (Auto) Neut % (Auto) Lymph % (Auto) Bradley % (Auto) Eos % (Auto) Baso % (Auto) Neut # (Auto) Lymph # (Auto) Bradley # (Auto) Eos # (Auto) Baso # (Auto) Immature Gran # (Auto) Polychromasia Ovalocytes PT INR APTT PTT Ratio POC Sodium 139 Sodium POC Potassium 2.6 L Potassium POC Chloride 97 L Chloride Carbon Dioxide POC Total CO2 28 Anion Gap POC Anion Gap 17.0 POC BUN 7 BUN Creatinine POC Creatinine 0.7 Est Cr Clr Drug Dosing Est GFR ( Amer) Est GFR (Non-Af Amer) BUN/Creatinine Ratio Glucose POC Glucose (other) 93 Lactate Calcium POC Ioniz Calcium Anne-Marie 1.13 Phosphorus Magnesium Iron 19 L TIBC 117 L Transferrin 90 L Ferritin 179.3 Total Bilirubin AST ALT Alkaline Phosphatase Troponin I Total Protein Albumin Globulin Albumin/Globulin Ratio Vitamin B12 Folate Procalcitonin 0.42 COVID-19 Eval Order SARS-CoV-2 (PCR) Influenza Type A (PCR) Influenza Type B (PCR) RSV (RT-PCR) Blood Type Antibody Screen Crossmatch 07/26/20 07/26/20 07/26/20 15:55 16:36 17:54 WBC RBC Hgb POC Hgb Hct POC Hct MCV MCH MCHC RDW Std Deviation RDW Coeff of Anjelica Plt Count MPV Immature Gran % (Auto) Neut % (Auto) Lymph % (Auto) Bradley % (Auto) Eos % (Auto) Baso % (Auto) Neut # (Auto) Lymph # (Auto) Bradley # (Auto) Eos # (Auto) Baso # (Auto) Immature Gran # (Auto) Polychromasia Ovalocytes PT INR APTT PTT Ratio POC Sodium Sodium POC Potassium Potassium POC Chloride Chloride Carbon Dioxide POC Total CO2 Anion Gap POC Anion Gap POC BUN BUN Creatinine POC Creatinine Est Cr Clr Drug Dosing Est GFR ( Amer) Est GFR (Non-Af Amer) BUN/Creatinine Ratio Glucose POC Glucose (other) Lactate 1.0 Calcium POC Ioniz Calcium Anne-Marie Phosphorus Magnesium Iron TIBC Transferrin Ferritin Total Bilirubin AST ALT Alkaline Phosphatase Troponin I Total Protein Albumin Globulin Albumin/Globulin Ratio Vitamin B12 Folate Procalcitonin COVID-19 Eval Order CovFluRsv at [facility] SARS-CoV-2 (PCR) Influenza Type A (PCR) Influenza Type B (PCR) RSV (RT-PCR) Blood Type O Positive Antibody Screen NEGATIVE Crossmatch See Detail 07/26/20 07/27/20 07/27/20 17:54 00:10 00:10 WBC RBC Hgb POC Hgb Hct POC Hct MCV MCH MCHC RDW Std Deviation RDW Coeff of Anjelica Plt Count MPV Immature Gran % (Auto) Neut % (Auto) Lymph % (Auto) Bradley % (Auto) Eos % (Auto) Baso % (Auto) Neut # (Auto) Lymph # (Auto) Bradley # (Auto) Eos # (Auto) Baso # (Auto) Immature Gran # (Auto) Polychromasia Ovalocytes PT INR APTT PTT Ratio POC Sodium Sodium 140 POC Potassium Potassium 3.1 L POC Chloride Chloride 107 Carbon Dioxide 28 POC Total CO2 Anion Gap 6.0 POC Anion Gap POC BUN BUN 7 Creatinine 0.53 L POC Creatinine Est Cr Clr Drug Dosing 99.3 Est GFR ( Amer) 115.5 Est GFR (Non-Af Amer) 99.6 BUN/Creatinine Ratio 14.0 Glucose 138 H POC Glucose (other) Lactate Calcium 7.7 L POC Ioniz Calcium Anne-Marie Phosphorus Magnesium 1.6 L Iron TIBC Transferrin Ferritin Total Bilirubin AST ALT Alkaline Phosphatase Troponin I Total Protein Albumin Globulin Albumin/Globulin Ratio Vitamin B12 657 Folate 5.20 L Procalcitonin COVID-19 Eval Order SARS-CoV-2 (PCR) NEGATIVE Influenza Type A (PCR) Negative Influenza Type B (PCR) Negative RSV (RT-PCR) Negative Blood Type Antibody Screen Crossmatch 07/27/20 07/27/20 07:35 07:35 WBC 5.93 RBC 2.98 L Hgb 9.6 L POC Hgb Hct 28.8 L POC Hct MCV 96.6 MCH 32.2 MCHC 33.3 RDW Std Deviation 55.5 H RDW Coeff of Anjelica 15.8 H Plt Count 151 MPV 10.7 H Immature Gran % (Auto) 0.2 Neut % (Auto) 87.2 Lymph % (Auto) 7.9 Bradley % (Auto) 4.7 Eos % (Auto) 0.0 Baso % (Auto) 0.0 Neut # (Auto) 5.17 Lymph # (Auto) 0.47 L Bradley # (Auto) 0.28 Eos # (Auto) 0.00 Baso # (Auto) 0.00 Immature Gran # (Auto) 0.01 Polychromasia Ovalocytes PT INR APTT PTT Ratio POC Sodium Sodium 140 POC Potassium Potassium 3.7 D POC Chloride Chloride 107 Carbon Dioxide 28 POC Total CO2 Anion Gap 5.0 POC Anion Gap POC BUN BUN 7 Creatinine 0.55 L POC Creatinine Est Cr Clr Drug Dosing 95.7 Est GFR ( Amer) 114.1 Est GFR (Non-Af Amer) 98.4 BUN/Creatinine Ratio 12.4 Glucose 107 H POC Glucose (other) Lactate Calcium 8.3 L POC Ioniz Calcium Anne-Marie Phosphorus 2.5 Magnesium 2.4 Iron TIBC Transferrin Ferritin Total Bilirubin 0.3 AST 23 ALT 15 Alkaline Phosphatase 99 Troponin I Total Protein 6.0 L Albumin 1.8 L Globulin 4.2 H Albumin/Globulin Ratio 0.4 L Vitamin B12 Folate Procalcitonin COVID-19 Eval Order SARS-CoV-2 (PCR) Influenza Type A (PCR) Influenza Type B (PCR) RSV (RT-PCR) Blood Type Antibody Screen Crossmatch (1) Hypotension Hypotension type: unspecified hypotension type Qualified Code(s): I95.9 - Hypotension, unspecified
--- NOTE | 2020-07-27 11:57 | Psychiatric Consultation ---
Date of Consultation July 27, 2020 Impression / Recommendations Impression Dr. Shira Galvan was directly involved in review and discussion of the patient's case and participated in medical decision making regarding treatment recommendations. RECOMMENDATIONS: 07/27/20 - Psychiatric consultation requested by our hospitalist team to evaluate patient for possible depression, given concerns for tearfulness on H&P assessment. - Pt does have a documented history of depression, last seen on our consult service in 2017. Pt is currently prescribed duloxetine 60mg, managed by her PCP. Patient is denying symptoms consistent with formal major depressive disor mindy at this time, and states her tearfulness and intermittent hopelessness are solely related to her frequent hospitalizations and desire to be home with her pet. Pt stating her mood and anxiety levels were stable prior to the events leading to her hospitalization. No clear indication to make medication adjustments if mood disturbance is in the setting of acute situational stress. Pt also denied feeling as though medication changes were necessary. - If concern for depressed mood continues, could consider titration of duloxetine. If there are continued concerns, patient may benefit from outpatient therapy or psychiatric referrals as well - she is declining feeling this is necessary at this time. - Pt is denying SI/HI, mood/anxiety concerns, and signs of other psychiatric concerns. Pt is indicating interest in returning home with home health services as soon as possible. We did discuss options to increase outpatient supports - primarily concern verbalized was the state of her apartment with regard to cleanliness. Pt was open to considering a cleaning service to assist with this, as she feels unable to do this on her own. Otherwise, patient denied additional needs from our service. - Please reach out to our service with any additional questions or updates. (1) Adjustment disorder with mixed anxiety and depressed mood: (2) Small cell lung cancer in adult: (3) Hypotension: Hypotension type: unspecified hypotension type Qualified Code(s): I95.9 - Hypotension, unspecified (4) Sepsis: Psych History Identifying Data 65-year-old female admitted medically on 07/26/20 after presenting to the ED with altered mental status. Pt has small cell lung carcinoma, as well as several other health conditions. Psychiatric consultation was requested due to concerns patient was appearing depressed, as she reportedly had frequent crying episodes during H&P assessment. Chief Complaint "Things were fine up until yesterday." History of Present Illness Marcus Fischer is a 65-year-old female admitted medically on 07/26/20 after presenting to the ED with altered mental status. Ex- reported notable confusion and police were called to patient's home after home health aids were unable to get ahold of the patient. Pt was found to be hypotensive and confused per ED documentation and therefore was transported to the ED. Pt is currently being treated for sepsis, likely from pneumonia per documentation. Pt is currently in treatment for small cell lung carcinoma. PMH is also significant for CVA in 12/2019, hx of DVT, chronic hypotension, GERD, and radiation esophagitis. Psychiatric consultation was requested to evaluate the patient for depression, due to concern patient reportedly had episodes of tearfulness during her initial H&P assessment. Pt was cooperative with conversation, but admitted "things were fine up until yesterday." She states that she has been frustrated with recent hospital admissions and "I just wanna go home to my ferret." Pt reports that she had a stroke recently and has noticed that she is not always able to find the words to express herself in the way she desires - admitting this is a recent concern. Pt states that she was frustrated to have to be back in the hospital and is hoping to return home as soon as possible. Pt does admit to having home health services "nearly every day", she also receives support from her ex- for transportation and other needs at home. Pt admits that her only concerns related to her living situation is "I need help cleaning the apartment. Sometimes I don't have the strength or energy to do it myself." We discussed the potential for her to explore cleaning agencies that may be able to assist with this need, as she admits she would like to avoid putting additional burden on her ex-. Part way through our conversation, the patient does become tearful. When asked what has her upset, she states "I just want to go home." She admits to missing her ferret but denied other concerns. Pt does not perceive herself as depressed and repeatedly states that she had no issues with depression or anxiety prior to her presentation to the ED. Pt denies feeling as though medications need to be adjusted at this time. She reports being started on duloxetine >1 year ago by her PCP and denies any issues related to the medication. Pt believes that her tearfulness is situational. She admits to intermittent hopelessness here in the hospital, but believes it will resolve as her strength improves. Pt does admit to feeling she has the emotional support of her ex- and did feel she could reach out to him if any safety concerns arose. Pt denied SI/HI, A/V hallucinations, and any other acute psychiatric concerns. Pt declined offer for outpatient therapy, stating "I did that before. It helped when I needed it, but I don't think I need it right now." This provider explained the role of our ser vice and patient was encouraged to reach out with any additional needs. She denied any at this time. Past Psychiatric History Current Psychiatric Diagnosis: Depression Outpatient Services: None presently - previously seen by [facility]. Therapy through [facility] in the past. Medications now managed by PCP. Previous Psych Admissions: [facility] in 2017 s/p intentional overdose - related to grief over of daughter by heroin overdose in 2016. History of Previous Suicide Attempt: Yes (overdose in 2017, reportedly related to grief re: of daughter in 2016) Past Medication Trials: 1. Duloxetine 2. Celexa (based on 2017 consultation note) 3. Mirtazapine (based on 2017 consultation note) 4. Amitriptyline (based on 2017 consultation note) 5. Xanax (based on 2017 consultation note) 6. Lexapro (based on 2017 consultation note) Allergies Allergy/AdvReac Type Severity Reaction Status Date / Time mushroom Allergy Severe anaphylaxis Verified 07/26/20 17:14 Penicillins Allergy Severe anaphylaxis, Verified 07/26/20 17:14 facial & throat swelling acetazolamide Allergy Intermediate rash, hives Verified 07/26/20 17:15 mold Allergy Unknown unknown Verified 07/26/20 17:15 reaction sumatriptan AdvReac Intermediate flushing, Verified 07/26/20 17:15 heart racing Home Medications Medication Instructions Recorded Confirmed Type albuterol sulfate 90 mcg/actuation 2 puff INH Q6H PRN #18 gm 10/23/19 07/26/20 Rx aerosol inhaler duloxetine 60 mg PO QAM 01/03/20 07/26/20 History omeprazole 20 mg PO BID 30 Days #60 cap 01/27/20 07/26/20 Rx magnesium oxide 400 mg PO BID #60 tab 02/07/20 07/26/20 Rx Anoro Ellipta 1 puffs INH QAM 05/29/20 07/26/20 History Eliquis 2.5 mg PO BID 05/29/20 07/26/20 History atorvastatin 40 mg PO HS 05/29/20 07/26/20 History fludrocortisone 0.1 mg PO BID 05/29/20 07/26/20 History ondansetron 8 mg PO Q8H PRN 05/29/20 07/26/20 History cyclobenzaprine 10 mg PO TID PRN 07/02/20 07/26/20 History gabapentin 100 mg PO TID 07/02/20 07/26/20 History acetaminophen [Tylenol Extra 500 mg PO Q4H PRN #0 tab 07/05/20 07/26/20 Rx Strength] aspirin 81 mg PO QAM #90 tab 07/05/20 07/26/20 Rx lidocaine 1 patch TRANSDERMAL HS PRN #30 ea 07/05/20 07/26/20 Rx midodrine 2.5 mg PO TID@0800,1200,1700 #90 07/05/20 07/26/20 Rx tab oxycodone 5 - 10 mg PO QID PRN #30 tab 07/05/20 07/26/20 Rx Substance Abuse History Current every day smoker. Personal History Living Arrangements: Home (with home health services and assistance from ex- ) Employment Status: Retired Marital Status: (though ex- remains supportive ) Patient History Medical History Acute kidney injury Acute shoulder pain Now a constant ache - no prescription meds needed Anxiety Chronic venous insufficiency follows with vascular (Dr. Carlson) CKD (chronic kidney disease), stage III COPD with emphysema Dentalgia Depression Hypertension Hypokalemia Kidney stones LAD (lymphadenopathy), mediastinal Major depressive disorder, recurrent episode with anxious distress Daughter from OD in 2016 Migraine Nausea & vomiting Neutropenia with fever Nicotine dependence Pancytopenia Polysubstance overdose Hx of 2017 Pulmonary nodule "7 mm RUL nodule, stable 09/25/15 - 09/16/16; repeat 6 mos" Surgical History History of bronchoscopy 10/30/2019 - with EBUS History of cataract surgery 2004 - bilateral History of section 1991 History of colonoscopy unsuccessful (poor bowel prep) History of cystoscopy 2007 - with stent History of dental surgery 02/2019 - Full upper teeth extracted S/P arthroscopy of left knee S/P arthroscopy of right knee Family History Grandmother (Maternal) , Passed in 80's of metastatic cancer (unknown primary) No problems noted. Mother , Passed age 93 of natural causes No problems noted. Father , Passed age 97 of natural causes No problems noted. Brother No problems noted. Daughter , Passed age 24 from Over Dose No problems noted. 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 Appropriately dressed in hospital gown. Pt appearing unkempt, short [place] hair, gown pulled down on one side, and nasal cannula in use. Eye Contact: + fair eye contact Motor Behavior: no abnormal motor movements (observed while laying/sitting in bed) Speech: normal rate/rhythm/volume of speech Affect: + depressed affect and + tearful affect Mood: + depressed mood (only since presented to the hospital, per patient) and + anxious mood (worried about status of her home) Thought Process: goal directed thought process Thought Content: reality based without delusions and + hopelessness (intermittently, related to frequent hospitalizations) Suicidal Thoughts: denies suicidal thoughts, denies suicidal plan and denies suicidal intent Homicidal Thoughts: denies homicidal thoughts Hallucinations: no auditory hallucinations and no visual hallucinations Cognition: attention grossly intact and language grossly intact Estimated Intelligence: consistent with education level Insight: + fair insight Judgement: + fair judgement Vital Signs (Past 24 Hours): Last Vital Signs Temp 36.4 C L 07/27/20 08:00 Pulse 79 07/27/20 08:00 Resp 18 07/27/20 08:00 BP 104/62 07/27/20 08:00 Pulse Ox 98 07/27/20 08:00 Review of Systems Constitutional: denied Cardiovascular: admits to intermittent right sided chest pain Respiratory: denied Gastrointestinal: denied Neurological: denied Psychiatric: denies symptoms other than stated above Total of at least 10 systems reviewed, pertinent positives as above and in HPI. Results & Data (PSY) Medications Administered Apixaban (Apixaban 5 Mg Tablet) 5 mg PO BID [facility] Stop: 08/25/20 20:59 Last Admin: 07/27/20 08:11 Dose: 5 mg Documented by: [id number] Admin: 07/26/20 22:56 Dose: 5 mg Documented by: [id number] Aspirin (Aspirin 81 Mg Ectab) [facility] [place]: 08/26/20 08:59 Last Admin: 07/27/20 08:11 Dose: 81 mg Documented by: [id number] Atorvastatin Calcium (Atorvastatin 40 Mg Tab) 40 mg PO HS [facility] Stop: 08/25/20 20:59 Last Admin: 07/26/20 22:56 Dose: 40 mg Documented by: [id number] Doxycycline Hyclate (Doxycycline Hyclate 100 Mg Cap) 100 mg PO BID@1000,2200 LC Stop: 08/02/20 21:59 Last Admin: 07/27/20 08:11 Dose: 100 mg Documented by: [id number] Admin: 07/26/20 22:56 Dose: 100 mg Documented by: [id number] Duloxetine HCl (Duloxetine Hcl 60 Mg Cap) 60 mg PO QAM LC Stop: 08/26/20 08:59 Last Admin: 07/27/20 08:11 Dose: 60 mg Documented by: [id number] Fludrocortisone Acetate (Fludrocortisone Acetate 0.1 Mg Tab) 0.1 mg PO BID [facility] Stop: 08/25/20 20:59 Last Admin: 07/27/20 08:11 Dose: 0.1 mg Documented by: [id number] Admin: 07/26/20 22:56 Dose: 0.1 mg Documented by: [id number] Gabapentin (Gabapentin 100 Mg Cap) 100 mg PO TID LC Stop: 08/25/20 20:59 Last Admin: 07/27/20 08:11 Dose: 100 mg Documented by: [id number] Admin: 07/26/20 22:56 Dose: 100 mg Documented by: [id number] Metronidazole (Flagyl) 500 mg in 100 mls @ 100 mls/hr IV Q8H LC Stop: 08/02/20 20:59 Last Admin: 07/27/20 05:57 Dose: Not Given Documented by: [id number] Infusion: 07/27/20 05:55 Dose: 0 mls/hr Documented by: [id number] Admin: 07/27/20 04:39 Dose: 100 mls/hr Documented by: [id number] Magnesium Oxide (Magnesium Oxide 400 Mg Tab) 400 mg PO BID LC Stop: 08/25/20 20:59 Last Admin: 07/27/20 08:11 Dose: 400 mg Documented by: [id number] Admin: 07/26/20 22:56 Dose: 400 mg Documented by: [id number] Midodrine (Midodrine Hcl 2.5 Mg Tab) 2.5 mg PO TID@0800,1200,1700 LC Stop: 08/26/20 07:59 Last Admin: 07/27/20 08:11 Dose: 2.5 mg Documented by: [id number] Oxycodone HCl (Oxycodone Hcl Ir 5 Mg Tab (Immediate Release)) 5 mg PO QID PRN PRN Reason: pain Stop: 08/10/20 05:59 Last Admin: 07/27/20 08:12 Dose: 5 mg Documented by: [id number] Pantoprazole Sodium (Pantoprazole 40 Mg Tab) 40 mg PO BID LC Stop: 08/25/20 20:59 Last Admin: 07/27/20 08:11 Dose: 40 mg Documented by: [id number] Admin: 07/26/20 22:56 Dose: 40 mg Documented by: [id number] Umeclidinium/Vilanterol (Umeclidinium/Vilanterol 62.5/25mcg 7 Puffs/Inhaler) 1 puffs INH QAM LC Stop: 08/26/20 08:59 Last Admin: 07/27/20 08:12 Dose: 1 puffs Documented by: [id number] Coding Level of Care Code 31901 U Intl Hosp Care Lvl 2 Diagnoses Adjustment disorder with mixed anxiety and depressed mood F43.23 Small cell lung cancer in adult C34.90 Hypotension I95.9 Hypotension type: unspecified hypotension type Sepsis A41.9
--- NOTE | 2020-07-27 14:04 | Electrocardiogram Report ---
Test Reason : Blood Pressure : / mmHG Vent. Rate : 097 BPM Atrial Rate : 097 BPM P-R Int : 128 ms QRS Dur : 084 ms QT Int : 372 ms P-R-T Axes : 033 061 052 degrees QTc Int : 472 ms Poor data quality, interpretation may be adversely affected Normal sinus rhythm Nonspecific ST and T wave abnormality Abnormal ECG When compared with ECG of 02-JUL-2020 20:38, No significant change was found Confirmed by Michel Alfaro ([id number]) on 07/27/2020 2:03:29 PM Referred By: Confirmed By:Carlyle Alfaro
[2020-07-27 19:01] LABS: Appearance Urine Clear (Clear); Bacteria Urine Automated Negative (Negative); Bilirubin Urine Negative (Negative); Blood Urine Negative (Negative); Color Urine Yellow; Epithelial Cell Urine Auto >30 /lpf (0-5); Glucose Urine UA Negative (Negative); Ketones Urine Trace (Negative); Leukocyte Esterase Urine Negative (Negative); Nitrite Urine Negative (Negative); Protein Urine Trace (Negative); RBC Urine Automated 0-4 /hpf (0-4); Urobilinogen Urine Negative (Negative)
[2020-07-27] MEDS: ATORVASTATIN 40 MG TAB PO SCH (21:30)
[2020-07-28] MEDS: metroNIDAZOLE 500 MG/100 ML BAG IV SCH ×3 (05:02→19:12)
[2020-07-28] MEDS: oxyCODONE HCL IR 5 MG TAB (IMMEDIATE RELEASE) PO PRN ×3 (05:02→16:45)
[2020-07-28 06:57] LABS: Hematocrit (blood only) 25.7 % (37-47); Hemoglobin 8.5 g/dL (12.0-16.0); Mean Corpuscular Hemoglobin 32.4 pg (25-34); Mean Corpuscular Hgb Conc 33.1 g/dL (32-36); Mean Corpuscular Volume 98.1 fL (80-100); Mean Platelet Volume 10.8 fL (7.4-10.4); Platelet Count 152 K/uL (130-400); RDW Coefficient of Variation 15.9 % (11.5-14.5); RDW Standard Deviation 56.3 fL (36.4-46.3); Red Blood Count 2.62 M/uL (4.2-5.4); White Blood Count 4.97 K/uL (4.8-10.8)
[2020-07-28] MEDS: DOXYCYCLINE HYCLATE 100 MG CAP PO SCH ×2 (07:26→19:16)
[2020-07-28] MEDS: UMECLIDINIUM/VILANTEROL 62.5/25MCG 7 PUFFS/INHALER INH SCH (07:26)
[2020-07-28] MEDS: MAGNESIUM OXIDE 400 MG TAB PO SCH ×2 (07:26→19:17)
[2020-07-28] MEDS: FLUDROCORTISONE ACETATE 0.1 MG TAB PO SCH ×2 (07:26→19:16)
[2020-07-28] MEDS: APIXABAN 5 MG TABLET PO SCH ×2 (07:26→19:15)
[2020-07-28] MEDS: PANTOprazole 40 MG TAB PO SCH ×2 (07:26→19:15)
[2020-07-28] MEDS: MIDODRINE HCL 2.5 MG TAB PO SCH ×3 (07:27→16:44)
[2020-07-28] MEDS: DULoxetine HCL 60 MG CAP PO SCH (07:27)
[2020-07-28] MEDS: ASPIRIN 81 MG ECTAB PO SCH (07:27)
[2020-07-28] MEDS: GABAPENTIN 100 MG CAP PO SCH ×3 (07:27→19:16)
[2020-07-28 07:32] LABS: BUN Creatinine Ratio 11.5 (10-20); Calcium 7.8 mg/dl (8.5-10.1); Creatinine Clr Calc Pharmacy 93.7 ml/min; Est GFR (African American) 112.7; Est GFR (Non-African American) 97.3
[2020-07-28 07:48] LABS: Phosphorus 1.5 mg/dl (2.5-4.9)
[2020-07-28] MEDS ORDERED: POTASSIUM PHOS 3 MMOL/1 ML INFUSION IV STA (08:41)
[2020-07-28] MEDS ORDERED: POTASSIUM PHOSPHATE 15 MMOL in SODIUM CHLORIDE 0.9% 250 ML IV ONE (09:15)
[2020-07-28] MEDS ORDERED: SODIUM PHOSPHATE 3 MMOL/1 ML INFUSION IV STA (16:03)
[2020-07-28] MEDS ORDERED: SODIUM PHOSPHATE 15 MMOL in SODIUM CHLORIDE 0.9% 250 ML IV ONE (16:15)
[2020-07-28] MEDS: ATORVASTATIN 40 MG TAB PO SCH (19:15)
--- NOTE | 2020-08-01 08:35 | Discharge Summary ---
Date of Service July 28, 2020 Admission HPI Per Admitting Provider This is a 64-year-old female who was significant past medical history of right small cell lung CA followed by Dr. Hebert status post 2 cycles of chemotherapy with cisplatin and etoposide along with radiation, history of CVA, DVT, hypotension treated with Florinef and midodrine, GERD and radiation esophagitis who presents to ED secondary to AMS x 1 day. She was brought in by EMS due to unable to get ahold of patient. EMS was called, found to be hypoxic, hypotensive and confused. She therefore was brought to EMS. Of significance patient hospitalized 07/02 - 07/07 secondary to altered mental status and hypotension. Given her history of CVA she was seen and evaluated by neurology at the time. Confusion had resolved and there was question whether she sustained possible TIA versus altered mental status secondary to hypotension and hypoperfusion versus ischemic event. Neurology at that time recommended outpatient neurosurgery evaluation which has not yet been obtained. She did have an MRI which was negative for metastatic disease. She was started on aspirin in addition to her Eliquis and recommended to maintain good BP control. She underwent EGD which reviewed radiation esophagitis and pt placed on PPI BID. She presents today 2/2 to worsening confusion and hypotension. When she was seen and evaluated she was crying frequently and requesting to go home stating, "I have not family." "I don't care what happens to me." She denies f/c/s, dizziness, lightheaded, chest pain, sob, cough, uri, n/v/d. She lives alone and is currently managing her own medications. Pt states she did not take any medications today and unsure how compliant she is at home. In ED patient's blood pressure was systolically in the 70s. She received 1 L of IV fluid and oral midodrine which improved BP to 90s. She was also ordered 100mg of IV Solu-Cortef. CT chest Concerning for increase in moderate multifocal right lung airspace opacity concerning for infectious process such as multifocal pneumonia. Admission Exam Per Admitting Provider Constitutional: WD/WN, chronically ill appearing F, frequent crying, vitals as above, answers questions approp Head: Normocephalic, Atraumatic Eyes: PERRL, conjunctivae normal, anicteric sclerae, ENMT: external ear and nose normal, oropharynx normal dry membranes, edentulous Neck: trachea midline, no thyromegaly normal visual inspection Respiratory: normal respiratory effort, lungs clear to auscultation, bibasilar crackles, rales, rhonchi. Normal insp/exp effort, no accessory muscle use Cardiovascular: tachycardic rate, regular rhythm, no murmur, b/l nonpitting edema, chronic per patient Vessels: no JVD or carotid bruit Chest: normal inspection of chest , Port RACW Abdomen: normal bowel sounds, soft, nontender, no hepatosplenomegaly Musculoskeletal: no cyanosis or clubbing, AROM x 4 Skin: no rashes, bruising on b/l upper and lower ext, warm and dry normal turgor Neurologic: PERRL, EOMI, accommodation nl, no face palsy, no dysarthria CN's II-XI intact bilaterally and moves all extremities Psychiatric: A+Ox3, euthymic affect : deferred Principal Diagnosis Hypoxia: Hypokalemia: Hypomagnesemia: Small cell lung cancer in adult: Hypotension: Anemia: Depression: CVA (cerebral vascular accident): Discharge Exam Constitutional: + well hydrated; no acute distress Eyes: PERRL, conjunctivae normal, anicteric sclerae ENMT: external ear and nose normal, oropharynx normal Respiratory: normal respiratory effort; no respiratory distress Auscultation: + crackles On 3l/min nasal oxygen Cardiovascular: Rate/Rhythm: regular rate and regular rhythm S1 S2 Gastrointestinal (Abdomen): normal bowel sounds, soft, nontender, no hepatosplenomegaly Musculoskeletal: Puffy legs non pitting Neurologic: PERRL, EOMI, accommodation nl, no face palsy, no dysarthria Psychiatric: Orientation: alert, oriented to person, oriented to place and cooperative Discharge Data Allergies Allergy/AdvReac Type Severity Reaction Status Date / Time mushroom Allergy Severe anaphylaxis Verified 07/26/20 17:14 Penicillins Allergy Severe anaphylaxis, Verified 07/26/20 17:14 facial & throat swelling acetazolamide Allergy Intermediate rash, hives Verified 07/26/20 17:15 mold Allergy Unknown unknown Verified 07/26/20 17:15 reaction sumatriptan AdvReac Intermediate flushing, Verified 07/26/20 17:15 heart racing Consultations 07/26/20 16:14 ED Decision to Admit Stat 07/26/20 20:38 Consult Psychiatry Routine Ordered Studies 07/26/20 15:04 CT abd pelvis IV con only Stat CT chest diagnostic w con Stat CT head/brain wo con Stat HEAD CT NONCONTRAST CT DOSE: HISTORY: Altered mental status. TECHNIQUE: Multiaxial CT images of the head were performed without the use of intravenous contrast. Automated exposure control was utilized for this study. A dose lowering technique was utilized adhering to the principles of ALARA. Comparison: Head CT 07/02/2020. Findings: Stable retention cyst/polyp within the left maxillary sinus. The mastoid air cells are clear. Mild motion artifact. The calvarium and skull base are intact. The ventricles and sulci are within normal limits. There is no mass, hematoma, midline shift, or acute infarct. Impression: No acute intracranial abnormality. ACT 112: Negative or not required by law. Electronically signed by: Avni Gongora M.D. 07/26/2020 3:46 PM Dictated: 07/26/20 1541Transcribed: 07/26/[address] OF THE CHEST WITH IV CONTRAST CLINICAL HISTORY: Altered mental status. Hypotension. History of lung cancer. COMPARISON STUDY: Chest CT July 02, 2020. TECHNIQUE: Following IV administration of 87 mL of Optiray, helical axial images of the chest were obtained. Sagittal and coronal reconstructions were viewed as well as maximal intensity projections on an independent 3-D workstation. Automated exposure control was utilized for the study. A dose lowering technique was utilized adhering to the principles of ALARA. CT DOSE: 1950.33 mGy.cm FINDINGS: Note is again made of thrombus within the SVC adjacent to the tip of the right internal jugular [id number]. This was shown on earlier exams. The size of the heart is normal. There is a trace pericardial effusion. A trace right pleural effusion is noted. There is no pneumothorax. Moderate emphysema is present. Moderate multifocal airspace opacities within the right lung have increased since CT of July 02, 2020. A few mildly enlarged mediastinal lymph nodes are noted, including a right paratracheal lymph node that measures 1 cm short axis diameter. This is slightly increased in size since prior examination. This is indeterminate. Mild esophageal wall thickening is again noted. This was shown on prior examination. The abdomen and pelvis will be reported separately. Old T11 compression fracture is noted as well as an old sternal fracture. IMPRESSION: 1. Increase in moderate multifocal right lung airspace opacities which favor an infectious process such as multifocal pneumonia. Radiographic follow-up to ensure resolution is recommended. 2. Several mildly enlarged mediastinal lymph nodes which are nonspecific and can be assessed on subsequent exams. 3. Redemonstration of thrombus within the SVC adjacent to the tip of the right internal jugular [id number]. This was shown on earlier exams. 4. Trace pericardial effusion and trace right pleural effusion. ACT 112: Negative or not required by law. Electronically signed by: Ildefonso Alarcon M.D. 07/26/2020 3:56 PM Dictated: 07/26/20 1543Transcribed: 07/26/[address] SCAN OF THE ABDOMEN AND PELVIS WITH IV CONTRAST CLINICAL HISTORY: Change in mental status. Lung cancer. COMPARISON STUDY: Abdominal CT dated 05/11/2020. PET/CT dated 06/02/2020. Chest CT dated 07/02/2020. TECHNIQUE: Following the IV administration of 87 cc of Optiray 320, CT scan of the abdomen and pelvis is performed from the lung bases to the proximal femora. Images are reviewed in the axial, sagittal, and coronal planes. IV contrast was administered without complication. A dose lowering technique was utilized adhering to the principles of ALARA. The examination is degraded by motion artifact, as well as by streak artifact from the arms which could not be elevated above the abdomen. FINDINGS: Lung bases: The heart is normal in size noting a small pericardial effusion. Emphysema is noted. Patchy airspace consolidation is seen throughout the right lower lobe there is bibasilar scarring/atelectasis. No pleural effusion is identified. A small hiatal hernia is noted. Liver: The contrast-enhanced liver is normal in size, contour, and attenuation. There is no intrahepatic biliary ductal dilatation. The hepatic veins and portal veins are patent. Gallbladder: Unremarkable. Spleen: Normal in size and attenuation. Pancreas: Moderately atrophic and grossly unremarkable. Adrenal glands: Unremarkable. Kidneys: The contrast enhanced kidneys demonstrate cortical atrophy and are without hydronephrosis. The kidneys enhance symmetrically. Abdominal vasculature: There is advanced atherosclerotic calcification and mild ectasia of the abdominal aorta. Bowel: There is no bowel obstruction. The appendix is well-visualized and normal. Peritoneum: There is no intraperitoneal free air or abdominal ascites. Lymphadenopathy: None. Pelvic viscera: The bladder, uterus, and adnexa are normal as visualized. Skeletal structures: The skeletal structures are osteopenic. There is a mild subacute appearing compression fracture of T11. Mild to moderate lumbosacral spondylosis is observed. No lytic or blastic lesions are seen. IMPRESSION: 1. Patchy airspace consolidation throughout the right lower lobe has significantly increased as compared to 07/02/2020. The appearance is typical for pneumonia/aspiration pneumonitis. Clinical correlation will be required and radiographic follow-up to resolution is recommended. 2. There are no acute infectious or inflammatory findings in the abdomen or pelvis. 3. There is a mild subacute appearing superior endplate compression fracture of T11. This is unchanged from recent prior studies. 4. Additional findings as above. ACT 112: Negative or not required by law. Electronically signed by: Cruz Nj M.D. 07/26/2020 3:59 PM Dictated: 07/26/20 1551Transcribed: 07/26/20 155 XR chest 1V portable CLINICAL HISTORY: SEPSIS COMPARISON STUDY: 06/16/2020 FINDINGS: There is a right-sided A-Port catheter. There is right hilar prominence, adenopathy not excluded.. There are right lung airspace opacities, likely representing a multifocal pneumonia. There is mild generalized interstitial thickening.[ IMPRESSION: 1. Nodular right lung airspace opacities, likely representing a multifocal pneumonia. Film subsequent to treatment are recommended in follow-up 2. Mild right hilar prominence, adenopathy not excluded ACT 112: Negative or not required by law. Electronically signed by: Derek Vasquez M.D. 07/26/2020 4:31 PM Dictated: 07/26/20 1629Transcribed: 07/26/20 1629 Hospital Course (1) Sepsis: (2) Hypoxia: 64-year-old female who was significant past medical history of right small cell lung CA followed by Dr. Hebert status post 2 cycles of chemotherapy with cisplatin and etoposide along with radiation, history of CVA, DVT, hypotension treated with Florinef and midodrine, GERD and radiation esophagitis who presents to ED secondary to AMS x 1 day. Pt meets Sepsis per current CMS guidelines 2/2 to tachycardia, AMS, hypotension source: likely Pneumonia Follow up blood and urine cultures ordered received 1L of IVF in ED with improvement in BP along with midodrine. Chest ct today compared to 3/26 which shows interval increase in opacity along with hypoxia Continue cefepime, doxy and flagyl Incentive spirometry Will need 2 step prior to d/c to determine home O2 needs (3) Hypokalemia: k 2.7 k rider 10meq x 2 in ED 40meq oral ordered along with 2 additional K riders repeat at 9pm (4) Hypomagnesemia: On admission k 2.7. Mag 1.3 Repleted K is 3.7, Mg 2.4 this morning (5) Small cell lung cancer in adult: Follows Dr. Hebert s/p 2 cycles of chemo cisplatin and etoposide along with xrt Follows [facility] radiation oncology, recent follow up recommended prophylactic brain xrt but pt currently not stable enough follows Dr. Hebert currently not undergoing active treatment (6) Hypotension: Chronic hypotension, pt runs 90s-100s systolically Continue florinef and midodrine SBP improved now to 90s-100c Stop IVF (7) Anemia: H&H 7.2 and 21.0 - which is a drop from 9.1 on previous admission No signs or symptoms of bleeding FOBT all stools ER gave 1 PRBC likely in setting of chronic disease/malignancy Hb is 9.6 (8) Depression: Patient appears depressed, reports minimal support and ongoing cancer diagnosis though she denies depression ?Depression vs adjustment Has crying bouts Will appreciate psych eval (9) CVA (cerebral vascular accident): Hx of CVA L cereberal hem 12/2019 continue eliquis, statin, asa recent MRI brain negative for acute cva and metastatic disease (10) DVT prophylaxis: Continue eliquis - pt currently on 2.5mg bid; however per criteria should be on 5mg BID Continue eliquis 5mg bid CT Chest: Redemonstration of thrombus within the SVC adjacent to the tip of the right internal jugular [id number]. This was shown on earlier exams. continue eliquis Hypoalbuminemia consult associate manager alb 1.6 Dispo: PCU; case management consulted, pt lives alone, unsure safety of patients living arranges given current underlying medical co morbidites PCP: Jailyn FULL CODE Total Time Total Time Spent Total Time Spent (In Minutes): 35 minutes Total Time Includes: Examination of the Patient, Discharge Planning, Medication Reconciliation, Communication With Other Providers and Other Discharge Plan Discharge Items Patient Disposition: Home - Home Health Services Reason For Visit: HYPOTENSION,CONFUSION,POSSIBLE SEPSIS Discharge Diagnosis: Hypoxia: Hypokalemia: Hypomagnesemia: Small cell lung cancer in adult: Hypotension: Anemia: Depression: CVA (cerebral vascular accident): Activity: Resume your previous activity Non-emergency contact: Primary Care Provider Call non-emergency contact if: you have any medication questions Follow-up/Referrals: Hany Glaser MD [Primary Care Provider] - Diet: Heart Healthy Addtl Attending Provider Instructions: Follow up with your primary care provider Dr. Glaser within 1 week (Office will call you for the appointment) If you continue to have depressed mood, your physician might refer you to get evaluated with psychiatry Check your phosphorus, magnesium and BMP in 1 week to monitor your electrolytes (your provider will order the lab work) Continue oxygen supplement with 2 L nasal canula Complete the course of the antibiotic for the pneumonia Fall precaution Seek medical attention if breathing worsening Eliquis increased to 5mg twice a day (Please monitor for any abnormal bleeding) Pending Studies at Discharge: No Stand-Alone Forms: My [facility] [employer], Smoking Cessation Medications and DC Order Prescriptions: New Phospha 250 Neutral 250 mg tablet 1 tab PO BID Qty: 30 RF: 0 Eliquis 5 mg tablet 5 mg PO BID 30 Days Qty: 60 RF: 0 Continued albuterol sulfate 90 mcg/actuation HFA aerosol inhaler 2 puff INH Q6H PRN (Reason: Shortness Of Breath Or Wheezing) Qty: 18 RF: 3 duloxetine 60 mg capsule,delayed release(DR/EC) 60 mg PO QAM RF: 0 omeprazole 20 mg capsule,delayed release(DR/EC) 20 mg PO BID 30 Days Qty: 60 RF: 3 magnesium oxide 400 mg (241.3 mg magnesium) Tablet 400 mg PO BID Qty: 60 RF: 0 atorvastatin 40 mg tablet 40 mg PO HS RF: 0 ondansetron 8 mg tablet,disintegrating 8 mg PO Q8H PRN (Reason: Nausea And Vomiting) RF: 0 fludrocortisone 0.1 mg tablet 0.1 mg PO BID RF: 0 Anoro Ellipta 62.5-25 mcg/actuation blister with device 1 puffs INH QAM RF: 0 gabapentin 100 mg capsule 100 mg PO TID RF: 0 cyclobenzaprine 10 mg tablet 10 mg PO TID PRN (Reason: Muscle Spasm) RF: 0 aspirin 81 mg Tablet,Delayed Release (Dr/Ec) 81 mg PO QAM Qty: 90 RF: 0 midodrine 2.5 mg Tablet 2.5 mg PO TID@0800,1200,1700 Qty: 90 RF: 0 lidocaine 5 % Adhesive Patch,Medicated 1 patch transdermal HS PRN (Reason: Pain) Qty: 30 RF: 0 oxycodone 5 mg Tablet 5 - 10 mg PO QID PRN (Reason: pain) Qty: 30 RF: 0 acetaminophen [Tylenol Extra Strength] 500 mg Tablet 500 mg PO Q4H PRN (Reason: Fever Or Pain) Qty: 0 RF: 0 Discontinued Eliquis 2.5 mg tablet 2.5 mg PO BID RF: 0 Discharge Orders: Discharge Order (Routine); Ordered 07/28/20 Ordered By: Shefali Noguera/Other Patient Handouts: Hypotension Dc, Apixaban oral tablets, Primaquine tablets, Doxycycline tablets or capsules Admission Data Admit Date/Time: 07/26/20 16:50 Attending Provider: Shefali Acharya Admit Provider: Ingris Simpson I. Primary Care Provider: Hany Glaser Other Providers: Ingris Simpson I. ; Evelin Hubbard ; [facility],Home [facility] Other Interventions: Discharge Summary Assessment (RN) Last Done: 07/28/20 18:39
== END 2020-07-28 20:06 | disposition home health service (06) | DRG 871 ==
LOC: ED 14:22 → 2S 16:50 → SUATTDRO 16:50 → 2S 20:18

== ENCOUNTER 2020-08-13 17:26 | Inpatient (IN) ==
[2020-08-13 17:58] LABS: Eosinophils # (auto) 0.03 K/uL (0-0.5); Eosinophils % (auto) 0.5 %; Hematocrit (blood only) 27.9 % (37-47); Hemoglobin 9.4 g/dL (12.0-16.0); Immature Granulocytes # (auto) 0.03 K/uL (0.00-0.02); Immature Granulocytes % (auto) 0.5 %; Lymphocytes # (auto) 0.82 K/uL (1.2-3.4); Lymphocytes % (auto) 14.4 %; Mean Corpuscular Hemoglobin 32.2 pg (25-34); Mean Corpuscular Hgb Conc 33.7 g/dL (32-36); Mean Corpuscular Volume 95.5 fL (80-100); Mean Platelet Volume 9.5 fL (7.4-10.4); Monocytes # (auto) 0.95 K/uL (0.11-0.59); Monocytes % (auto) 16.7 %; Neutrophils # (auto) 3.86 K/uL (1.4-6.5); Neutrophils % (auto) 67.9 %; Platelet Count 157 K/uL (130-400); RDW Coefficient of Variation 16.6 % (11.5-14.5); RDW Standard Deviation 57.2 fL (36.4-46.3); Red Blood Count 2.92 M/uL (4.2-5.4); White Blood Count 5.69 K/uL (4.8-10.8)
--- NOTE | 2020-08-13 18:07 | XRay Report ---
SINGLE VIEW CHEST CLINICAL HISTORY: Generalized weakness. Dyspnea. FINDINGS: An AP, portable, upright chest radiograph is compared to chest x-ray and chest CT dated 07/08. A right internal jugular central venous infusion port is unchanged in position. The cardiomed iastinal silhouette is unremarkable noting atherosclerotic calcification of the thoracic aorta. Emphy sema and chronic interstitial thickening is similar to previous. Airspace consolidation is again seen throughout the right mid to lower lung. This has increased from 07/26/2020. Atelectasis is noted at t he left lung base. No large pleural effusion or pneumothorax is seen. The skeletal structures are ost eopenic. The bony thorax is grossly intact. IMPRESSION: 1. Emphysema. 2. Airspace consolidation is again seen in the right mid to lower lung, typical in appearance for pne umonia/aspiration pneumonitis. This has increased as compared to 07/26/2020. Radiographic follow-up to resolution is recommended. ACT 112: Negative or not required by law. Electronically signed by: Cruz Nj M.D. 08/13/2020 6:06 PM
--- NOTE | 2020-08-13 18:11 | Emergency Department Note ---
History of Present Illness General Chief complaint: Confusion Stated complaint: MEMORY LOSS Time Seen by Provider: 08/13/20 17:35 Source: patient and RN notes reviewed Limitations: altered mental status History of Present Illness Provider complaint: Confusion Onset (ago): hour(s) Location: head Pain Consistency: + constant Quality: + other (Confusion) Relieved By: + none Associated symptoms: no chest pain, no fever/chills, no headaches, no nausea/vomiting and no shortness of breath This is a 65-year-old female presents with confusion. She states that she was okay yesterday but today she cannot remember anything. She does not know what day it is.She could not remember that she has a history of lung cancer. She was seen by her home health nurse today who found her very confused and sent her he re for evaluation. History is very limited due to the patient's confusion. She denies any headache, fever, cough or cold symptoms, chest pain, shortness of breath, abdominal pain, vomiting, diarrhea or urinary symptoms. Home Medications Medication Instructions Recorded Confirmed Type albuterol sulfate 90 mcg/actuation 2 puff INH Q6H PRN #18 gm 10/23/19 08/13/20 Rx aerosol inhaler duloxetine 60 mg PO QAM 01/03/20 08/13/20 History omeprazole 20 mg PO BID 30 Days #60 cap 01/27/20 08/13/20 Rx magnesium oxide 400 mg PO BID #60 tab 02/07/20 08/13/20 Rx Anoro Ellipta 1 puffs INH QAM 05/29/20 08/13/20 History atorvastatin 40 mg PO HS 05/29/20 08/13/20 History fludrocortisone 0.1 mg PO BID 05/29/20 08/13/20 History ondansetron 8 mg PO Q8H PRN 05/29/20 08/13/20 History cyclobenzaprine 10 mg PO TID PRN 07/02/20 08/13/20 History gabapentin 100 mg PO TID 07/02/20 08/13/20 History aspirin 81 mg PO QAM #90 tab 07/05/20 08/13/20 Rx lidocaine 1 patch TRANSDERMAL HS PRN #30 ea 07/05/20 08/13/20 Rx apixaban [Eliquis] 5 mg PO BID 30 Days #60 tab 07/28/20 08/13/20 Rx sod phos di, mono-K phos mono 1 tab PO BID #30 tab 07/28/20 08/13/20 Rx [Phospha 250 Neutral] acetaminophen [Tylenol] 325 - 650 mg PO DIRECTED PRN 08/13/20 08/13/20 History hydroxyzine HCl 50 mg PO DAILY PRN 08/13/20 08/13/20 History midodrine 2.5 mg PO TID 08/13/20 08/13/20 History multivitamin-calcium carb 1 tab PO DAILY 08/13/20 08/13/20 History oxycodone 10 mg PO Q6H PRN 08/13/20 08/13/20 History Allergies Allergy/AdvReac Type Severity Reaction Status Date / Time mushroom Allergy Severe anaphylaxis Verified 08/13/20 19:08 Penicillins Allergy Severe anaphylaxis, Verified 08/13/20 19:08 facial & throat swelling acetazolamide Allergy Intermediate rash, hives Verified 08/13/20 19:08 mold Allergy Unknown unknown Verified 08/13/20 19:08 reaction sumatriptan AdvReac Intermediate flushing, Verified 08/13/20 19:08 heart racing Past Med/Surg History Medical History (Updated 08/13/20 @ 19:47 by Baldomero Brooks MD) Acute kidney injury Acute shoulder pain Now a constant ache - no prescription meds needed Anxiety Chronic venous insufficiency follows with vascular (Dr. Carlson) CKD (chronic kidney disease), stage III COPD with emphysema Dentalgia Hypertension Hypokalemia Kidney stones LAD (lymphadenopathy), mediastinal Major depressive disorder, recurrent episode with anxious distress Daughter from OD in 2016 Migraine Nausea & vomiting Neutropenia with fever Nicotine dependence Pancytopenia Polysubstance overdose Hx of 2017 Pulmonary nodule "7 mm RUL nodule, stable 09/25/15 - 09/16/16; repeat 6 mos" Small cell lung cancer in adult Diagnosed 10/30/2019 - metastatic to lymph nodes Surgical History History of bronchoscopy 10/30/2019 - with EBUS History of cataract surgery 2004 - bilateral History of section 1991 History of colonoscopy unsuccessful (poor bowel prep) History of cystoscopy 2007 - with stent History of dental surgery 02/2019 - Full upper teeth extracted S/P arthroscopy of left knee 1990's S/P arthroscopy of right knee Family History Grandmother (Maternal) , Passed in 80's of metastatic cancer (unknown primary) No problems noted. Mother , Passed age 93 of natural causes No problems noted. Father , Passed age 97 of natural causes No problems noted. Brother No problems noted. Daughter , Passed age 24 from Over Dose No problems noted. 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 and A total of 10 systems reviewed and were otherwise negative Physical Exam Vital Signs Vital Signs - 24 hr 08/13/20 17:17 08/13/20 17:44 08/13/20 17:55 Temperature 36.5 C Temperature Source Oral Pulse Rate 80 Respiratory Rate 22 Respiratory Effort / Characteristics Short of Breath Respiratory Depth Shallow Blood Pressure 161/112 H Blood Pressure Mean 128 Pulse Oximetry 93 96 93 Oxygen Delivery Method Room Air Nasal Cannula Room Air Oxygen Flow Rate 3 Sepsis Recent Fever Within 48 Hours No Sepsis New/Unexplained Change in Mental Status Yes Sepsis Action Taken by Nursing Physician Notified Oxygen Flow Rate - Titration 3 Pulse Oximetry Post Tiitration 96 Constitutional: Vital signs reviewed. Eyes: Pupils are equal round reactive to light. Conjunctiva are noninjected. ENT: Pharynx is clear without erythema or exudate. Mucous membranes are dry. Neck supple without meningeal signs. Respiratory: Clear to auscultation bilaterally. Breath sounds are equal bilaterally. Cardiovascular: Regular rate and rhythm. No rubs or gallops. GI: Soft, nondistended and nontender. Bowel sounds are present. Musculoskeletal: No peripheral edema. No lower extremity tenderness. Integumentary: No cyanosis. or jaundice. Neurologic: The patient is awake and alert she is oriented to person only. Cranial nerves II-XII are intact. Motor is 5 out of 5 all extremities. Sensation is intact to light touch all extremities. Normal speech. No pronator drift. No asterixis. Psychiatric: Normal affect. Medical Decision Making Differential Diagnosis Encephalopathy, intracranial hemorrhage, CVA, intracranial mass, metabolic derangement, infection Medical Records Attestation: I reviewed the patient's medical records. I did perform a limited focused review of portions of the patient's old chart on the electronic medical record. The patient Was admitted to the hospital last month for altered mental status. She also had anemia requiring transfusion of 1 unit packed RBCs. She also developed a pneumonia. Home Medications Current Medication List: was personally reviewed by me Laboratory Data Attestation: I reviewed the patient's lab results. Result diagrams: 08/13/20 17:50 08/13/20 17:50 Lab Results 08/13/20 08/13/20 08/13/20 Range/Units 17:50 17:50 17:50 WBC 5.69 (4.8-10.8) K/uL RBC 2.92 L (4.2-5.4) M/uL Hgb 9.4 L (12.0-16.0) g/dL Hct 27.9 L (37-47) % MCV 95.5 (80-100) fL MCH 32.2 (25-34) pg MCHC 33.7 (32-36) g/dL RDW Std Deviation 57.2 H (36.4-46.3) fL RDW Coeff of Anjelica 16.6 H (11.5-14.5) % Plt Count 157 (130-400) K/uL MPV 9.5 (7.4-10.4) fL Immature Gran % (Auto) 0.5 % Neut % (Auto) 67.9 % Lymph % (Auto) 14.4 % [place] % (Auto) 16.7 % Eos % (Auto) 0.5 % Baso % (Auto) 0.0 % Neut # (Auto) 3.86 (1.4-6.5) K/uL Lymph # (Auto) 0.82 L (1.2-3.4) K/uL [place] # (Auto) 0.95 H (0.11-0.59) K/uL Eos # (Auto) 0.03 (0-0.5) K/uL Baso # (Auto) 0.00 (0-0.2) K/uL Immature Gran # (Auto) 0.03 H (0.00-0.02) K/uL PT 11.4 (9.0-12.0) Seconds INR 1.1 (0.9-1.1) Sodium 138 (136-145) mmol/L Potassium 2.3 L* (3.5-5.1) mmol/L Chloride 98 (98-107) mmol/L Carbon Dioxide 31 (21-32) mmol/L Anion Gap 9.0 (3-11) BUN 5 L (7-18) mg/dl Creatinine 0.45 L (0.6-1.2) mg/dl Est Cr Clr Drug Dosing 116.7 ml/min Est GFR ( Amer) 121.9 Est GFR (Non-Af Amer) 105.1 BUN/Creatinine Ratio 11.9 (10-20) Glucose 85 (70-99) mg/dl Calcium 8.3 L (8.5-10.1) mg/dl Magnesium 1.5 L (1.8-2.4) mg/dl Total Bilirubin 0.7 (0.2-1) mg/dl AST 13 L (15-37) U/L ALT 11 L (12-78) U/L Alkaline Phosphatase 111 (45-117) U/L Troponin I < 0.015 (0-0.045) ng/ml Total Protein 6.4 (6.4-8.2) gm/dl Albumin 1.9 L (3.4-5.0) gm/dl Globulin 4.5 H (2.5-4.0) gm/dl Albumin/Globulin Ratio 0.4 L (0.9-2) TSH 0.138 L (0.300-4.500) uIu/ml Free T4 1.48 (0.8-1.6) ng/dl COVID-19 Eval Order SARS-CoV-2 (PCR) (Negative) Influenza Type A (PCR) (Neg) Influenza Type B (PCR) (Neg) RSV (RT-PCR) (Neg) 08/13/20 08/13/20 Range/Units 17:59 17:59 WBC (4.8-10.8) K/uL RBC (4.2-5.4) M/uL Hgb (12.0-16.0) g/dL Hct (37-47) % MCV (80-100) fL MCH (25-34) pg MCHC (32-36) g/dL RDW Std Deviation (36.4-46.3) fL RDW Coeff of Anjelica (11.5-14.5) % Plt Count (130-400) K/uL MPV (7.4-10.4) fL Immature Gran % (Auto) % Neut % (Auto) % Lymph % (Auto) % [place] % (Auto) % Eos % (Auto) % Baso % (Auto) % Neut # (Auto) (1.4-6.5) K/uL Lymph # (Auto) (1.2-3.4) K/uL [place] # (Auto) (0.11-0.59) K/uL Eos # (Auto) (0-0.5) K/uL Baso # (Auto) (0-0.2) K/uL Immature Gran # (Auto) (0.00-0.02) K/uL PT (9.0-12.0) Seconds INR (0.9-1.1) Sodium (136-145) mmol/L Potassium (3.5-5.1) mmol/L Chloride (98-107) mmol/L Carbon Dioxide (21-32) mmol/L Anion Gap (3-11) BUN (7-18) mg/dl Creatinine (0.6-1.2) mg/dl Est Cr Clr Drug Dosing ml/min Est GFR ( Amer) Est GFR (Non-Af Amer) BUN/Creatinine Ratio (10-20) Glucose (70-99) mg/dl Calcium (8.5-10.1) mg/dl Magnesium (1.8-2.4) mg/dl Total Bilirubin (0.2-1) mg/dl AST (15-37) U/L ALT (12-78) U/L Alkaline Phosphatase (45-117) U/L Troponin I (0-0.045) ng/ml Total Protein (6.4-8.2) gm/dl Albumin (3.4-5.0) gm/dl Globulin (2.5-4.0) gm/dl Albumin/Globulin Ratio (0.9-2) TSH (0.300-4.500) uIu/ml Free T4 (0.8-1.6) ng/dl COVID-19 Eval Order CovFluRsv at [facility] SARS-CoV-2 (PCR) NEGATIVE (Negative) Influenza Type A (PCR) Negative (Neg) Influenza Type B (PCR) Negative (Neg) RSV (RT-PCR) Negative (Neg) Imaging Data Radiologist's Impression: Chest X-Ray 08/13/20 17:44 SINGLE VIEW CHEST CLINICAL HISTORY: Generalized weakness. Dyspnea. FINDINGS: An AP, portable, upright chest radiograph is compared to chest x-ray and chest CT dated 07/26/2020. A right internal jugular central venous infusion port is unchanged in position. The cardiomediastinal silhouette is unremarkable noting atherosclerotic calcification of the thoracic aorta. Emphysema and chronic interstitial thickening is similar to previous. Airspace consolidation is again seen throughout the right mid to lower lung. This has increased from 07/26/2020. Atelectasis is noted at the left lung base. No large pleural effusion or pneumothorax is seen. The skeletal structures are osteopenic. The bony thorax is grossly intact. IMPRESSION: 1. Emphysema. 2. Airspace consolidation is again seen in the right mid to lower lung, typical in appearance for pneumonia/aspiration pneumonitis. This has increased as compared to 07/26/2020. Radiographic follow-up to resolution is recommended. ACT 112: Negative or not required by law. Electronically signed by: Cruz Nj M.D. 08/13/2020 6:[address] 08/13/20 17:44 CT SCAN OF THE BRAIN WITHOUT IV CONTRAST CLINICAL HISTORY: Change in mental status. COMPARISON STUDY: CT of the brain dated 07/26/2020. TECHNIQUE: Unenhanced axial CT scan of the brain is performed from the vertex to the skull base. A dose lowering technique was utilized adhering to the principles of ALARA. CT DOSE: 1464.62 mGy.cm FINDINGS: Brain parenchyma: There are age-related involutional changes noting mild subcortical and periventricular microangiopathic change. There is no hemorrhage, mass effect, or evidence of acute territorial ischemia by CT criteria. Chase- white matter differentiation is preserved. No extra-axial fluid collection is seen. Ventricles, sulci, cisterns: Prominent secondary to involutional change. Intracranial vasculature: There is atherosclerotic calcification of the cavernous carotid and vertebral arteries.. Calvarium: Unremarkable. Sinuses and mastoids: A 1.8 cm retention cyst is noted in the left maxillary antrum. The remaining visualized paranasal sinuses are clear. There is a small left mastoid effusion. The right mastoid air cells are well pneumatized. Orbits: The bony orbits are grossly intact. There are bilateral ocular lens implants. IMPRESSION: There is no hemorrhage, mass effect, or evidence of acute territorial ischemia by CT criteria. ACT 112: Negative or not required by law. Electronically signed by: Cruz Nj M.D. 08/13/2020 6:46 PM ECG Data Attestation: I personally reviewed and interpreted this ECG as follows: Indication: + altered mental status Rate (beats per minute): 99 Rhythm: + normal sinus ECG Intervals/blocks: + Prolonged QT ECG ST segments: no ST elevation ECG Findings: no PVCs and no U waves MDM Narrative I did evaluate the patient as noted above. The patient is presenting with altered mental status since this morning. She was found to be confused by her home health nurse. She really does not have any other symptoms. IV access was established. I did place an order for continuous cardiac monitoring. The monitor showed normal sinus rhythm at a rate of 98 bpm. I did order and personally review the patient's 12-lead EKG as described above. She has a prolonged QT interval. No U waves are noted. I did order and personally r eviewed the images of the patient's chest x-ray as described above. The patient has an airspace consolidation in the right mid to lower lung. This is typical for pneumonia and has increased in size compared to July 26. Blood cultures were ordered. I did order a urine analysis. I did order and review the patient's blood work as noted in the electronic medical record. Her hemoglobin is 9.4. Her white count is not elevated. Platelet count is 157. Electrolytes are remarkable for a sodium of 2.3. Magnesium is 1.5. Troponin is negative. Lactate is currently pending. Covid screening is negative. I did order a CT of the head. I did review the images myself as well as the radiology report as described above.There is no evidence of acute intracranial abnormality. I did discuss the test results with patient. I did treat the patient with IV KCl and IV magnesium as well as oral potassium. I did discuss the case with the hospitalist and telehealth case manager. I did discuss case with the hospitalist and telehealth case manager. Impression & Plan Altered mental status, Acute hypokalemia, Hypomagnesemia, Pneumonia Discharge Plan Visit Data Chief Complaint: Confusion Stated Complaint: MEMORY LOSS ED Provider: Baldomero Brooks Discharge Problem: Altered mental status, Acute hypokalemia, Hypomagnesemia, Pneumonia Patient Disposition: Being Evaluated by Hospitalist Forms Stand Alone Forms: My [facility] Prescriptions Prescriptions: No Action albuterol sulfate 90 mcg/actuation HFA aerosol inhaler 2 puff INH Q6H PRN (Reason: Shortness Of Breath Or Wheezing) Qty: 18 RF: 3 duloxetine 60 mg capsule,delayed release(DR/EC) 60 mg PO QAM RF: 0 omeprazole 20 mg capsule,delayed release(DR/EC) 20 mg PO BID 30 Days Qty: 60 RF: 3 magnesium oxide 400 mg (241.3 mg magnesium) Tablet 400 mg PO BID Qty: 60 RF: 0 atorvastatin 40 mg tablet 40 mg PO HS RF: 0 ondansetron 8 mg tablet,disintegrating 8 mg PO Q8H PRN (Reason: Nausea And Vomiting) RF: 0 fludrocortisone 0.1 mg tablet 0.1 mg PO BID RF: 0 Anoro Ellipta 62.5-25 mcg/actuation blister with device 1 puffs INH QAM RF: 0 Phospha 250 Neutral 250 mg tablet 1 tab PO BID Qty: 30 RF: 0 Eliquis 5 mg tablet 5 mg PO BID 30 Days Qty: 60 RF: 0 acetaminophen [Tylenol] 325 mg Tablet 325 - 650 mg PO DIRECTED PRN (Reason: FEVER/PAIN) RF: 0 hydroxyzine HCl 50 mg Tablet 50 mg PO DAILY PRN (Reason: Anxiety) RF: 0 multivitamin-calcium carb Tablet,Chewable 1 tab PO DAILY RF: 0 oxycodone 10 mg Tablet 10 mg PO Q6H PRN (Reason: Pain, Moderate) RF: 0 midodrine 2.5 mg tablet 2.5 mg PO TID RF: 0 gabapentin 100 mg capsule 100 mg PO TID RF: 0 cyclobenzaprine 10 mg tablet 10 mg PO TID PRN (Reason: Muscle Spasm) RF: 0 aspirin 81 mg Tablet,Delayed Release (Dr/Ec) 81 mg PO QAM Qty: 90 RF: 0 lidocaine 5 % Adhesive Patch,Medicated 1 patch transdermal HS PRN (Reason: Pain) Qty: 30 RF: 0 Referrals Referrals: Hany Glaser MD [Primary Care Provider] -
[2020-08-13 18:19] LABS: Alanine Aminotransferase 11 U/L (12-78); Albumin Level 1.9 gm/dl (3.4-5.0); Aspartate Aminotransferase 13 U/L (15-37); BUN Creatinine Ratio 11.9 (10-20); Blood Urea Nitrogen 5 mg/dl (7-18); Calcium 8.3 mg/dl (8.5-10.1); Carbon Dioxide 31 mmol/L (21-32); Chloride 98 mmol/L (98-107); Creatinine Clr Calc Pharmacy 116.7 ml/min; Est GFR (African American) 121.9; Est GFR (Non-African American) 105.1; Glucose 85 mg/dl (70-99); Magnesium 1.5 mg/dl (1.8-2.4); Potassium 2.3 mmol/L (3.5-5.1); Sodium 138 mmol/L (136-145)
[2020-08-13] MEDS ORDERED: POTASSIUM CHLORIDE 10 MEQ TABCR PO STA (18:20)
[2020-08-13 18:21] LABS: INR 1.1 (0.9-1.1); Prothrombin Time 11.4 Seconds (9.0-12.0)
[2020-08-13] MEDS ORDERED: MAGNESIUM SULFATE / D5W 1 GM/100 ML BAG IV STA (18:21)
[2020-08-13] MEDS ORDERED: CEFEPIME 2,000 MG/20 ML VIAL IV STA (18:26)
[2020-08-13 18:35] LABS: Albumin Globulin Ratio 0.4 (0.9-2); Alkaline Phosphatase 111 U/L (45-117); Bilirubin,Total 0.7 mg/dl (0.2-1); Globulin 4.5 gm/dl (2.5-4.0); Thyroid Stimulating Hormone 0.138 uIu/ml (0.300-4.500); Total Protein 6.4 gm/dl (6.4-8.2); Troponin I < 0.015 ng/ml (0-0.045)
--- NOTE | 2020-08-13 18:47 | CT Scan Report ---
CT SCAN OF THE BRAIN WITHOUT IV CONTRAST CLINICAL HISTORY: Change in mental status. COMPARISON STUDY: CT of the brain dated 07/26/2020. TECHNIQUE: Unenhanced axial CT scan of the brain is performed from the vertex to the skull base. A do se lowering technique was utilized adhering to the principles of ALARA. CT DOSE: 1464.62 mGy.cm FINDINGS: Brain parenchyma: There are age-related involutional changes noting mild subcortical and periventric ular microangiopathic change. There is no hemorrhage, mass effect, or evidence of acute territorial i schemia by CT criteria. Chase-white matter differentiation is preserved. No extra-axial fluid collecti on is seen. Ventricles, sulci, cisterns: Prominent secondary to involutional change. Intracranial vasculature: There is atherosclerotic calcification of the cavernous carotid and vertebr al arteries.. Calvarium: Unremarkable. Sinuses and mastoids: A 1.8 cm retention cyst is noted in the left maxillary antrum. The remaining vi sualized paranasal sinuses are clear. There is a small left mastoid effusion. The right mastoid air c ells are well pneumatized. Orbits: The bony orbits are grossly intact. There are bilateral ocular lens implants. IMPRESSION: There is no hemorrhage, mass effect, or evidence of acute territorial ischemia by CT radhat kathleen. ACT 112: Negative or not required by law. Electronically signed by: Cruz Nj M.D. 08/13/2020 6:46 PM
[2020-08-13 18:59] LABS: Influenza A virus by PCR Negative (Neg); Influenza B virus by PCR Negative (Neg); RSV by PCR Negative (Neg); SARS CoV2 RNA(COVID-19) InHosp NEGATIVE (Negative)
[2020-08-13 19:05] LABS: T4 Free Thyroxine 1.48 ng/dl (0.8-1.6)
[2020-08-13] MEDS ORDERED: ERTAPENEM SODIUM 10 ML IV STA (19:24)
[2020-08-13] MEDS ORDERED: POTASSIUM CHLORIDE 40 MEQ in SODIUM CHLORIDE 0.9% 1000ML 1,000 ML IV ONE (20:00)
[2020-08-13] MEDS: POTASSIUM CHLORIDE / WTR 10 MEQ/100 ML PLCT IV SCH ×2 (20:21→23:50)
--- NOTE | 2020-08-13 20:32 | History & Physical Report ---
Date of Service August 13, 2020 Assessment & Plan (1) Encephalopathy: Multifactorial : HCAP (recent hospital admission) /possible aspiration pneumonia, possible sepsis Recurrent hypokalemia secondary to p.o. intake, fludrocortisone (for hypotension) contributory Home narcotics/neuropsychotropic medications contributory hx small cell lung cancer sp chemoradiation, currently in remission History CVA as per records hx PVD Hyperlipidemia on statin Rx mood disorder, at baseline chronic anemia, hemoglobin better at baseline History RUE DVT on Eliquis Functional disability, recurrent admissions Past tobacco abuse Medical telemetry CS, Doxycycline, Ertapenem IVF, replace electrolytes DC fludrocortisone given recurrent hypokalemia Continue midodrine for hypotension Hold narcotics, neuropsychotropic medications until patient mentation back to baseline PT OT eval Social service RE discharge planning (Patient may be amenable to assisted living placement if possible and can take care of her pet ferret.) DVT prophylaxis. Eliquis Full code Patient ex- requesting updates from providers. Mr. Abdiaziz Fowler, contact #[phone]. Text document was generated using [employer] voice recognition software. It may contain grammatical or spelling errors. Kindly contact undersigned for clarification of any documentation item in question. History of Present Illness Chief Complaint: Confusion cannot remember anything as per patient. Primary Care Provider: Hany Glaser MD History obtained from patient and records. Patient is a fair historian. Medical history significant for CVA, orthostatic hypotension on fludrocortisone/midodrine Rx, small cell lung cancer sp chemoradiation, mood disorder, chronic back pain secondary to thoracic compression fracture, chronic anemia (baseline hemoglobin 9), RUE DVT on Eliquis, past tobacco abuse. Three [facility] admissions since May 2020. Last confinement 3 weeks ago for hypoxia, sepsis secondary to possible pneumonia. Patient discharged home. Following discharge, concerns about patient inability to pecan picker new prescriptions since patient ex- was out of town. ER evaluation recommended by outpatient provider for possible placement if patient cannot care for self as per documentation. Patient noted by home health nurse to be more confused today. Having trouble remembering things. Poor appetite as per patient. Dry cough symptoms. Patient denies aspiration. Patient denies chest pain, S OB, headache. Denies taking home narcotics more than she should. Patient brought to the ER for evaluation. 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 Allergies Allergy/AdvReac Type Severity Reaction Status Date / Time mushroom Allergy Severe anaphylaxis Verified 08/13/20 19:08 Penicillins Allergy Severe anaphylaxis, Verified 08/13/20 19:08 facial & throat swelling acetazolamide Allergy Intermediate rash, hives Verified 08/13/20 19:08 mold Allergy Unknown unknown Verified 08/13/20 19:08 reaction sumatriptan AdvReac Intermediate flushing, Verified 08/13/20 19:08 heart racing Home Medications Medication Instructions Recorded Confirmed Type albuterol sulfate 90 mcg/actuation 2 puff INH Q6H PRN #18 gm 10/23/19 08/13/20 Rx aerosol inhaler duloxetine 60 mg PO QAM 01/03/20 08/13/20 History omeprazole 20 mg PO BID 30 Days #60 cap 01/27/20 08/13/20 Rx magnesium oxide 400 mg PO BID #60 tab 02/07/20 08/13/20 Rx Anoro Ellipta 1 puffs INH QAM 05/29/20 08/13/20 History atorvastatin 40 mg PO HS 05/29/20 08/13/20 History fludrocortisone 0.1 mg PO BID 05/29/20 08/13/20 History ondansetron 8 mg PO Q8H PRN 05/29/20 08/13/20 History cyclobenzaprine 10 mg PO TID PRN 07/02/20 08/13/20 History gabapentin 100 mg PO TID 07/02/20 08/13/20 History aspirin 81 mg PO QAM #90 tab 07/05/20 08/13/20 Rx lidocaine 1 patch TRANSDERMAL HS PRN #30 ea 07/05/20 08/13/20 Rx apixaban [Eliquis] 5 mg PO BID 30 Days #60 tab 07/28/20 08/13/20 Rx sod phos di, mono-K phos mono 1 tab PO BID #30 tab 07/28/20 08/13/20 Rx [Phospha 250 Neutral] acetaminophen [Tylenol] 325 - 650 mg PO DIRECTED PRN 08/13/20 08/13/20 History hydroxyzine HCl 50 mg PO DAILY PRN 08/13/20 08/13/20 History midodrine 2.5 mg PO TID 08/13/20 08/13/20 History multivitamin-calcium carb 1 tab PO DAILY 08/13/20 08/13/20 History oxycodone 10 mg PO Q6H PRN 08/13/20 08/13/20 History Past Med/Surg History Medical History (Updated 08/14/20 @ 10:08 by Joe Goldsmith MD) Acute kidney injury Acute shoulder pain Now a constant ache - no prescription meds needed Anxiety Chronic venous insufficiency follows with vascular (Dr. Carlson) CKD (chronic kidney disease), stage III COPD with emphysema Dentalgia Hypertension Hypokalemia Kidney stones LAD (lymphadenopathy), mediastinal Major depressive disorder, recurrent episode with anxious distress Daughter from OD in 2015 Migraine Nausea & vomiting Neutropenia with fever Nicotine dependence Pancytopenia Polysubstance overdose Hx of 2017 Pulmonary nodule "7 mm RUL nodule, stable 09/25/15 - 09/16/16; repeat 6 mos" Small cell lung cancer in adult Diagnosed 10/30/2019 - metastatic to lymph nodes Surgical History History of bronchoscopy 10/30/2019 - with EBUS History of cataract surgery 2004 - bilateral History of section 1991 History of colonoscopy unsuccessful (poor bowel prep) History of cystoscopy 2007 - with stent History of dental surgery 02/2019 - Full upper teeth extracted S/P arthroscopy of left knee 1989' S/P arthroscopy of right knee Family History Grandmother (Maternal) , Passed in 80's of metastatic cancer (unknown primary) No problems noted. Mother , Passed age 93 of natural causes No problems noted. Father , Passed age 97 of natural causes No problems noted. Brother No problems noted. Daughter , Passed age 24 from Over Dose No problems noted. 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 [employer] Feels Safe at Home: Yes Safety Concerns: Feels Safe At This Time Childhood Exposure to Second-Hand Smoke: No caffeine: Yes (2 cups of coffee/day ) during the past year weight has: remained stable Dental Care, Regularly: Yes Assistive Devices: Cane, Denture - Upper, Denture - Lower, Glasses and Oxygen - Continuous Assistive Devices Comment: O2 "on and off" per patient, lower denture is partial Review of Systems Review of Systems: As per HPI, all 10 systems reviewed, all other ROS negative Physical Exam Physical Exam: GENERAL: Comfortable, coherent, slow response to some questions, no respiratory distress SKIN: Pallor , warm HEENT: [place] palpebral conjunctivae, no ptosis, dry buccal mucosa NECK : Supple, no tenderness CHEST : Decreased breath sounds, no tenderness HEART : RRR, no obvious murmurs ABDOMEN: Some distention, nontender EXTREMITIES : No LE swelling/tenderness, no other conspicuous deformities noted NEUROLOGIC : Coherent, no facial asymmetry, slow response to some questions, gait and stance not assessed Results & Data Results & Data ([facility]) Vital Signs (Past 12 Hours) Vital Signs Temp Pulse Resp BP Pulse Ox 08/13/20 17:55 93 08/13/20 17:44 96 08/13/20 17:17 36.5 C 80 22 161/112 H 93 Laboratory Results Laboratory Results WBC 5.69 K/uL (4.8-10.8) 08/13/20 17:50 RBC 2.92 M/uL (4.2-5.4) L 08/13/20 17:50 Hgb 9.4 g/dL (12.0-16.0) L 08/13/20 17:50 Hct 27.9 % (37-47) L 08/13/20 17:50 MCV 95.5 fL (80-100) 08/13/20 17:50 MCH 32.2 pg (25-34) 08/13/20 17:50 MCHC 33.7 g/dL (32-36) 08/13/20 17:50 RDW Std Deviation 57.2 fL (36.4-46.3) H 08/13/20 17:50 RDW Coeff of Anjelica 16.6 % (11.5-14.5) H 08/13/20 17:50 Plt Count 157 K/uL (130-400) 08/13/20 17:50 MPV 9.5 fL (7.4-10.4) 08/13/20 17:50 Immature Gran % (Auto) 0.5 % 08/13/20 17:50 Neut % (Auto) 67.9 % 08/13/20 17:50 Lymph % (Auto) 14.4 % 08/13/20 17:50 Mcnairy % (Auto) 16.7 % 08/13/20 17:50 Eos % (Auto) 0.5 % 08/13/20 17:50 Baso % (Auto) 0.0 % 08/13/20 17:50 Neut # (Auto) 3.86 K/uL (1.4-6.5) 08/13/20 17:50 Lymph # (Auto) 0.82 K/uL (1.2-3.4) L 08/13/20 17:50 Mcnairy # (Auto) 0.95 K/uL (0.11-0.59) H 08/13/20 17:50 Eos # (Auto) 0.03 K/uL (0-0.5) 08/13/20 17:50 Baso # (Auto) 0.00 K/uL (0-0.2) 08/13/20 17:50 Immature Gran # (Auto) 0.03 K/uL (0.00-0.02) H 08/13/20 17:50 PT 11.4 Seconds (9.0-12.0) 08/13/20 17:50 INR 1.1 (0.9-1.1) 08/13/20 17:50 Sodium 138 mmol/L (136-145) 08/13/20 17:50 Potassium 2.3 mmol/L (3.5-5.1) L* 08/13/20 17:50 Chloride 98 mmol/L (98-107) 08/13/20 17:50 Carbon Dioxide 31 mmol/L (21-32) 08/13/20 17:50 Anion Gap 9.0 (3-11) 08/13/20 17:50 BUN 5 mg/dl (7-18) L 08/13/20 17:50 Creatinine 0.45 mg/dl (0.6-1.2) L 08/13/20 17:50 Est Cr Clr Drug Dosing 116.7 ml/min 08/13/20 17:50 Est GFR ( Amer) 121.9 08/13/20 17:50 Est GFR (Non-Af Amer) 105.1 08/13/20 17:50 BUN/Creatinine Ratio 11.9 (10-20) 08/13/20 17:50 Glucose 85 mg/dl (70-99) 08/13/20 17:50 Calcium 8.3 mg/dl (8.5-10.1) L 08/13/20 17:50 Magnesium 1.5 mg/dl (1.8-2.4) L 08/13/20 17:50 Total Bilirubin 0.7 mg/dl (0.2-1) 08/13/20 17:50 AST 13 U/L (15-37) L 08/13/20 17:50 ALT 11 U/L (12-78) L 08/13/20 17:50 Alkaline Phosphatase 111 U/L (45-117) 08/13/20 17:50 Troponin I < 0.015 ng/ml (0-0.045) 08/13/20 17:50 Total Protein 6.4 gm/dl (6.4-8.2) 08/13/20 17:50 Albumin 1.9 gm/dl (3.4-5.0) L 08/13/20 17:50 Globulin 4.5 gm/dl (2.5-4.0) H 08/13/20 17:50 Albumin/Globulin Ratio 0.4 (0.9-2) L 08/13/20 17:50 TSH 0.138 uIu/ml (0.300-4.500) L 08/13/20 17:50 Free T4 1.48 ng/dl (0.8-1.6) 08/13/20 17:50 COVID-19 Eval Order CovFluRsv at [facility] 08/13/20 17:59 SARS-CoV-2 (PCR) NEGATIVE (Negative) 08/13/20 17:59 Influenza Type A (PCR) Negative (Neg) 08/13/20 17:59 Influenza Type B (PCR) Negative (Neg) 08/13/20 17:59 RSV (RT-PCR) Negative (Neg) 08/13/20 17:59 Impressions Chest X-Ray 08/13/20 17:44 SINGLE VIEW CHEST CLINICAL HISTORY: Generalized weakness. Dyspnea. FINDINGS: An AP, portable, upright chest radiograph is compared to chest x-ray and chest CT dated 07/26/2020. A right internal jugular central venous infusion port is unchanged in position. The cardiomediastinal silhouette is unremarkable noting atherosclerotic calcification of the thoracic aorta. Emphysema and chronic interstitial thickening is similar to previous. Airspace consolidation is again seen throughout the right mid to lower lung. This has increased from 07/26/2020. Atelectasis is noted at the left lung base. No large pleural effusion or pneumothorax is seen. The skeletal structures are osteopenic. The bony tho rax is grossly intact. IMPRESSION: 1. Emphysema. 2. Airspace consolidation is again seen in the right mid to lower lung, typical in appearance for pneumonia/aspiration pneumonitis. This has increased as compared to 07/26/2020. Radiographic follow-up to resolution is recommended. ACT 112: Negative or not required by law. Electronically signed by: Cruz Nj M.D. 08/13/2020 6:[address] 08/13/20 17:44 CT SCAN OF THE BRAIN WITHOUT IV CONTRAST CLINICAL HISTORY: Change in mental status. COMPARISON STUDY: CT of the brain dated 07/26/2020. TECHNIQUE: Unenhanced axial CT scan of the brain is performed from the vertex to the skull base. A dose lowering technique was utilized adhering to the principles of ALARA. CT DOSE: 1464.62 mGy.cm FINDINGS: Brain parenchyma: There are age-related involutional changes noting mild subcortical and periventricular microangiopathic change. There is no hemorrhage, mass effect, or evidence of acute territorial ischemia by CT criteria. Chase- white matter differentiation is preserved. No extra-axial fluid collection is seen. Ventricles, sulci, cisterns: Prominent secondary to involutional change. Intracranial vasculature: There is atherosclerotic calcification of the cavernous carotid and vertebral arteries.. Calvarium: Unremarkable. Sinuses and mastoids: A 1.8 cm retention cyst is noted in the left maxillary antrum. The remaining visualized paranasal sinuses are clear. There is a small left mastoid effusion. The right mastoid air cells are well pneumatized. Orbits: The bony orbits are grossly intact. There are bilateral ocular lens implants. IMPRESSION: There is no hemorrhage, mass effect, or evidence of acute territorial ischemia by CT criteria. ACT 112: Negative or not required by law. Electronically signed by: Cruz Nj M.D. 08/13/2020 6:46 PM Diagnostic Findings EKG as per my interpretation: Rate 100, NSR, normal axis, T wave abnormality septal leads Code Status & VTE Plan VTE Prophylaxis Plan VTE Prophylaxis will be ordered: Yes
[2020-08-13 21:26] LABS: Appearance Urine Clear (Clear); Bilirubin Urine Negative (Negative); Blood Urine Negative (Negative); Color Urine Yellow; Glucose Urine UA Negative (Negative); Ketones Urine 1+ (Negative); Leukocyte Esterase Urine Negative (Negative); Nitrite Urine Negative (Negative); Protein Urine Negative (Negative); Specific Gravity Urine 1.011 (1.000-1.030); Urobilinogen Urine Negative (Negative); pH Urine >= 9.0 (4.5-7.5)
[2020-08-13 21:46] LABS: Amphetamines+Metham, Urine Neg (Neg); Barbiturates, Urine Neg (Neg); Benzodiazepine, Urine Neg (Neg); Cocaine, Urine Neg (Neg); MDMA (Ecstacy), Urine Neg (Neg); Methadone, Urine Neg (Neg); Opiate, Urine Neg (Neg); Phencyclidine, Urine Neg (Neg)
[2020-08-13] MEDS ORDERED: DOXYCYCLINE HYCLATE 100 MG in DEXTROSE 5% 100 ML IV STA (22:38)
[2020-08-13] MEDS ORDERED: MAGNESIUM SULFATE / D5W 1 GM/100 ML BAG IV ONE (23:00)
[2020-08-13] MEDS ORDERED: POTASSIUM CHLORIDE CRTAB 20 MEQ TABCR PO SCH ×2 (23:00)
[2020-08-13] MEDS: ATORVASTATIN 40 MG TAB PO SCH (23:40)
[2020-08-13] MEDS: PANTOprazole 40 MG TAB PO SCH (23:40)
[2020-08-13] MEDS: MIDODRINE HCL 2.5 MG TAB PO SCH (23:40)
[2020-08-13] MEDS: MAGNESIUM OXIDE 400 MG TAB PO SCH (23:40)
[2020-08-13] MEDS: APIXABAN 5 MG TABLET PO SCH (23:40)
[2020-08-14] MEDS: ACETAMINOPHEN 325 MG TAB PO PRN (00:34)
[2020-08-14] MEDS ORDERED: POTASSIUM CHLORIDE CRTAB 20 MEQ TABCR PO SCH (01:00)
[2020-08-14] MEDS: POTASSIUM CHLORIDE / WTR 10 MEQ/100 ML PLCT IV SCH ×6 (01:14→06:38)
[2020-08-14] MEDS ORDERED: KETOROLAC TROMETHAMINE 15 MG/ML VIAL IV ONE (03:13)
[2020-08-14] MEDS ORDERED: oxyCODONE HCL IR 5 MG TAB (IMMEDIATE RELEASE) PO PRN (03:36)
[2020-08-14] MEDS: PROMETHAZINE HCL 6.25 MG in SODIUM CHLORIDE 0.9% 50 ML IV PRN ×2 (03:47→11:38)
[2020-08-14] MEDS: LIDOCAINE 5% 1 PATCH TD SCH (05:45)
[2020-08-14 05:46] LABS: Basophils # (auto) 0.01 K/uL (0-0.2); Basophils % (auto) 0.2 %; Eosinophils # (auto) 0.13 K/uL (0-0.5); Eosinophils % (auto) 2.4 %; Hematocrit (blood only) 25.4 % (37-47); Hemoglobin 8.5 g/dL (12.0-16.0); Immature Granulocytes # (auto) 0.02 K/uL (0.00-0.02); Immature Granulocytes % (auto) 0.4 %; Lymphocytes # (auto) 0.75 K/uL (1.2-3.4); Lymphocytes % (auto) 13.9 %; Mean Corpuscular Hemoglobin 32.2 pg (25-34); Mean Corpuscular Hgb Conc 33.5 g/dL (32-36); Mean Corpuscular Volume 96.2 fL (80-100); Mean Platelet Volume 10.2 fL (7.4-10.4); Monocytes # (auto) 0.79 K/uL (0.11-0.59); Monocytes % (auto) 14.6 %; Neutrophils % (auto) 68.5 %; Platelet Count 161 K/uL (130-400); Red Blood Count 2.64 M/uL (4.2-5.4)
[2020-08-14 06:32] LABS: BUN Creatinine Ratio 12.6 (10-20); Calcium 7.8 mg/dl (8.5-10.1); Creatinine Clr Calc Pharmacy 131.7 ml/min; Est GFR (African American) 126.7; Est GFR (Non-African American) 109.3; Magnesium 2.5 mg/dl (1.8-2.4); Potassium 4.2 mmol/L (3.5-5.1)
[2020-08-14] MEDS: MIDODRINE HCL 2.5 MG TAB PO SCH ×3 (06:44→17:51)
[2020-08-14] MEDS: PANTOprazole 40 MG TAB PO SCH ×2 (07:47→20:56)
[2020-08-14] MEDS: APIXABAN 5 MG TABLET PO SCH ×2 (07:54→20:56)
[2020-08-14] MEDS: UMECLIDINIUM/VILANTEROL 62.5/25MCG 7 PUFFS/INHALER INH SCH (07:55)
[2020-08-14] MEDS: ASPIRIN 81 MG ECTAB PO SCH (07:55)
[2020-08-14] MEDS: MAGNESIUM OXIDE 400 MG TAB PO SCH ×2 (07:55→20:56)
[2020-08-14] MEDS: DULoxetine HCL 60 MG CAP PO SCH (07:55)
[2020-08-14] MEDS ORDERED: [UNRECOGNIZED DRUG - OTHER] PO SCH (09:00)
[2020-08-14] MEDS ORDERED: ERTAPENEM CONSULT ACTIVE PRN (09:00)
--- NOTE | 2020-08-14 09:55 | Electrocardiogram Report ---
Test Reason : Blood Pressure : / mmHG Vent. Rate : 099 BPM Atrial Rate : 099 BPM P-R Int : 124 ms QRS Dur : 082 ms QT Int : 416 ms P-R-T Axes : 035 053 044 degrees QTc Int : 533 ms Normal sinus rhythm Nonspecific ST abnormality Prolonged QT Abnormal ECG When compared with ECG of 26-JUL-2020 14:42, QT has lengthened Confirmed by James Eldridge ([id number]) on 08/14/2020 9:54:47 AM Referred By: REFERRED SELF Confirmed By:James Eldridge
[2020-08-14] MEDS: DOXYCYCLINE HYCLATE 100 MG CAP PO SCH ×2 (11:38→22:21)
--- NOTE | 2020-08-14 17:51 | Hospitalist Progress Note ---
Date of Service August 14, 2020 Assessment & Plan (1) Encephalopathy: possible related to pneumonia vs narcotic and neuropsychotropic meds CT head showed no hemorrhage, mass effect, or evidence of acute territorial ischemia Ammonia level normal No focal neuro deficit on exam Will resume Oxycodone at a lower dose 5mg and gabapentin at 100mg BID Will continue monitor closely Pneumonia Possible HCAP (recent hospital admission) vs aspiration pneumonia CXR showed airspace consolidation is again seen in the right mid to lower lung, typical in appearance for pneumonia/aspiration pneumonitis. Received IV cefepime in the ER Pt was started on Ertapenem and doxycycline Blood cx pending Continue oxygen supplement Continue monitor closely Hypokalemia: Potassium was 2.3 on admission K 4.1 today Continue monitor BMP Small cell lung cancer in adult: s/p 2 cycles of chemo cisplatin and etoposide along with xrt Continue follow up with Dr. Hebert Hypotension: Chronic hypotension, pt runs 90s-100s systolically Continue midodrine and fludrocortisone Continue monitor BP Anemia: likely in setting of chronic disease/malignancy Hgb 8.5 today No signs or symptoms of bleeding Continue monitor CBC CVA (cerebral vascular accident): Hx of CVA L cereberal hem 12/2019 continue eliquis, statin, asa DVT prophylaxis: Continue eliquis 5mg bid Code status Full code Admission and Anticipated Discharge Date Admission Date: August 13, 2020 Subjective Pt was seen and examined for follow up confusion and weakness Lying in bed with no distress Pt said that she is having a lot of pain in her back She said that she usually takes 10mg oxycodone every few hours prn Her mental status is back to her baseline Denies any chest pain, palpitation, dizziness and SOB Review of Systems Review of Systems: All systems reviewed & are unremarkable except as noted in Subjective Physical Exam Physical Exam: General- No acute distress Head- atraumatic Eyes- PERRL, EOMI, ENT- oropharynx clear Neck- supple, no JVD Lungs- clear to auscultation Heart- regular rhythm Abdomen- normal bowel sounds, soft, nontender Extremities- no calf tenderness Neuro- alert, oriented x 3; PERRL, EOMI; no facial palsy; no dysarthria Skin- warm & dry Results & Data Results & Data ([facility]) Vital Signs (Past 12 Hours) Vital Signs Temp Pulse Pulse Resp BP Pulse Ox 08/14/20 15:32 36.4 C L 88 18 119/79 97 08/14/20 15:30 89 08/14/20 11:43 36.9 C 87 18 117/78 97 08/14/20 08:07 91 H 08/14/20 06:43 36.7 C 93 H 18 133/88 92
[2020-08-14] MEDS: ATORVASTATIN 40 MG TAB PO SCH (20:56)
[2020-08-14] MEDS: oxyCODONE HCL IR 5 MG TAB (IMMEDIATE RELEASE) PO PRN (20:56)
[2020-08-14] MEDS: GABAPENTIN 100 MG CAP PO SCH (20:56)
[2020-08-14] MEDS: ERTAPENEM SODIUM 1,000 MG in SODIUM CHLORIDE 0.9% 50 ML IV SCH (20:57)
[2020-08-15] MEDS: ACETAMINOPHEN 325 MG TAB PO PRN ×2 (03:54→23:43)
[2020-08-15 05:58] LABS: Hematocrit (blood only) 26.8 % (37-47); Hemoglobin 8.9 g/dL (12.0-16.0); Mean Corpuscular Hemoglobin 32.6 pg (25-34); Mean Corpuscular Hgb Conc 33.2 g/dL (32-36); Mean Corpuscular Volume 98.2 fL (80-100); Mean Platelet Volume 10.1 fL (7.4-10.4); Platelet Count 159 K/uL (130-400); RDW Coefficient of Variation 17.7 % (11.5-14.5); RDW Standard Deviation 61.2 fL (36.4-46.3); Red Blood Count 2.73 M/uL (4.2-5.4); White Blood Count 5.03 K/uL (4.8-10.8)
[2020-08-15] MEDS: MIDODRINE HCL 2.5 MG TAB PO SCH ×3 (06:27→15:25)
[2020-08-15 06:29] LABS: BUN Creatinine Ratio 9.2 (10-20); Calcium 7.9 mg/dl (8.5-10.1); Creatinine Clr Calc Pharmacy 102.2 ml/min; Est GFR (African American) 116.2; Est GFR (Non-African American) 100.3; Magnesium 2.2 mg/dl (1.8-2.4); Potassium 3.9 mmol/L (3.5-5.1)
[2020-08-15] MEDS: LIDOCAINE 5% 1 PATCH TD SCH (09:30)
[2020-08-15] MEDS: DULoxetine HCL 60 MG CAP PO SCH (09:32)
[2020-08-15] MEDS: APIXABAN 5 MG TABLET PO SCH ×2 (09:32→20:12)
[2020-08-15] MEDS: ASPIRIN 81 MG ECTAB PO SCH (09:32)
[2020-08-15] MEDS: GABAPENTIN 100 MG CAP PO SCH ×2 (09:32→20:12)
[2020-08-15] MEDS: PANTOprazole 40 MG TAB PO SCH ×2 (09:33→20:12)
[2020-08-15] MEDS: DOXYCYCLINE HYCLATE 100 MG CAP PO SCH ×2 (09:33→21:30)
[2020-08-15] MEDS: UMECLIDINIUM/VILANTEROL 62.5/25MCG 7 PUFFS/INHALER INH SCH (09:33)
[2020-08-15] MEDS: oxyCODONE HCL IR 5 MG TAB (IMMEDIATE RELEASE) PO PRN ×3 (09:38→21:58)
--- NOTE | 2020-08-15 18:27 | Hospitalist Progress Note ---
Date of Service August 15, 2020 Assessment & Plan (1) Encephalopathy: possible related to pneumonia vs narcotic and neuropsychotropic meds CT head showed no hemorrhage, mass effect, or evidence of acute territorial ischemia Ammonia level normal No focal neuro deficit on exam Continue Oxycodone at a lower dose 5mg and gabapentin at 100mg BID Will continue monitor closely Pneumonia Possible HCAP (recent hospital admission) vs aspiration pneumonia CXR showed airspace consolidation is again seen in the right mid to lower lung, typical in appearance for pneumonia/aspiration pneumonitis. Received IV cefepime in the ER Pt was started on Ertapenem and doxycycline Blood cx no growth Continue oxygen supplement Continue monitor closely Hypokalemia: Potassium was 2.3 on admission K 3.9 today Continue monitor BMP Small cell lung cancer in adult: s/p 2 cycles of chemo cisplatin and etoposide along with xrt Continue follow up with Dr. Hebert Hypotension: Chronic hypotension, pt runs 90s-100s systolically Continue midodrine and fludrocortisone Continue monitor BP Anemia: likely in setting of chronic disease/malignancy Hgb 8.9 today No signs or symptoms of bleeding Continue monitor CBC CVA (cerebral vascular accident): Hx of CVA L cerebral 12/2019 CT head showed no acute intracranial abnormality continue eliquis, statin, asa DVT prophylaxis: Continue Eliquis 5mg bid Code status Full code Admission and Anticipated Discharge Date Admission Date: August 13, 2020 Subjective Pt was seen and examined for follow up confusion and weakness Sitting at the edge of the bed with no distress Pt said that her pain is much better Her mental status is back to her baseline Denies any chest pain, palpitation, dizziness and SOB Review of Systems Review of Systems: All systems reviewed & are unremarkable except as noted in Subjective Physical Exam Physical Exam: General- No acute distress Head- atraumatic Eyes- PERRL, EOMI, ENT- oropharynx clear Neck- supple, no JVD Lungs- clear to auscultation Heart- regular rhythm Abdomen- normal bowel sounds, soft, nontender Extremities- no calf tenderness Neuro- alert, oriented x 3; PERRL, EOMI; no facial palsy; no dysarthria Skin- warm & dry Results & Data Results & Data ([facility]) Vital Signs (Past 12 Hours) Vital Signs Temp Pulse Pulse Resp BP Pulse Ox 08/15/20 16:02 36.9 C 87 18 98/67 L 97 08/15/20 15:46 91 H 08/15/20 12:14 36.5 C 113 H 20 129/82 98 08/15/20 08:00 84 08/15/20 06:25 36.3 C L 86 18 118/69 96
[2020-08-15] MEDS: ERTAPENEM SODIUM 1,000 MG in SODIUM CHLORIDE 0.9% 50 ML IV SCH (20:11)
[2020-08-15] MEDS: ATORVASTATIN 40 MG TAB PO SCH (20:12)
[2020-08-16] MEDS: MIDODRINE HCL 2.5 MG TAB PO SCH ×3 (06:37→15:53)
[2020-08-16] MEDS: oxyCODONE HCL IR 5 MG TAB (IMMEDIATE RELEASE) PO PRN ×3 (07:23→21:00)
[2020-08-16] MEDS: ASPIRIN 81 MG ECTAB PO SCH (07:50)
[2020-08-16] MEDS: LIDOCAINE 5% 1 PATCH TD SCH (07:50)
[2020-08-16] MEDS: APIXABAN 5 MG TABLET PO SCH ×2 (07:51→21:01)
[2020-08-16] MEDS: UMECLIDINIUM/VILANTEROL 62.5/25MCG 7 PUFFS/INHALER INH SCH (07:51)
[2020-08-16] MEDS: GABAPENTIN 100 MG CAP PO SCH ×2 (07:51→21:01)
[2020-08-16] MEDS: DULoxetine HCL 60 MG CAP PO SCH (07:51)
[2020-08-16] MEDS: PANTOprazole 40 MG TAB PO SCH ×2 (07:52→21:01)
[2020-08-16] MEDS: DOXYCYCLINE HYCLATE 100 MG CAP PO SCH ×2 (09:41→22:05)
[2020-08-16] MEDS: ACETAMINOPHEN 325 MG TAB PO PRN (17:25)
--- NOTE | 2020-08-16 17:25 | Hospitalist Progress Note ---
Date of Service August 16, 2020 Assessment & Plan (1) Encephalopathy: possible related to pneumonia vs narcotic and neuropsychotropic meds CT head showed no hemorrhage, mass effect, or evidence of acute territorial ischemia Ammonia level normal No focal neuro deficit on exam Continue Oxycodone at a lower dose 5mg and gabapentin at 100mg BID Will continue monitor closely Pneumonia Possible HCAP (recent hospital admission) vs aspiration pneumonia CXR showed airspace consolidation is again seen in the right mid to lower lung, typical in appearance for pneumonia/aspiration pneumonitis. Received IV cefepime in the ER Pt was started on Ertapenem and doxycycline Blood cx no growth Continue oxygen supplement Continue monitor closely Hypokalemia: Potassium was 2.3 on admission K 3.9 today Continue monitor BMP Small cell lung cancer in adult: s/p 2 cycles of chemo cisplatin and etoposide along with xrt Continue follow up with Dr. Hebert Hypotension: Chronic hypotension, pt runs 90s-100s systolically Continue midodrine and fludrocortisone Continue monitor BP Anemia: likely in setting of chronic disease/malignancy Hgb 8.9 today No signs or symptoms of bleeding Continue monitor CBC CVA (cerebral vascular accident): Hx of CVA L cerebral 12/2019 CT head showed no acute intracranial abnormality continue eliquis, statin, asa DVT prophylaxis: Continue Eliquis 5mg bid Code status Full code Disposition Will discharge home with tomorrow Admission and Anticipated Discharge Date Admission Date: August 13, 2020 Subjective Pt was seen and examined for follow up confusion and weakness Lying in bed with no distress She said that she feels ok Denies any chest pain, palpitation, dizziness and SOB Review of Systems Review of Systems: All systems reviewed & are unremarkable except as noted in Subjective Physical Exam Physical Exam: General- No acute distress Head- atraumatic Eyes- PERRL, EOMI, ENT- oropharynx clear Neck- supple, no JVD Lungs- clear to auscultation Heart- regular rhythm Abdomen- normal bowel sounds, soft, nontender Extremities- no calf tenderness Neuro- alert, oriented x 3; PERRL, EOMI; no facial palsy; no dysarthria Skin- warm & dry Results & Data Results & Data ([facility]) Vital Signs (Past 12 Hours) Vital Signs Temp Pulse Pulse Pulse Resp BP Pulse Ox 08/16/20 15:21 36.8 C 87 18 98/65 L 94 08/16/20 14:54 92 H 08/16/20 11:10 36.4 C L 87 18 101/70 96 08/16/20 11:05 91 H 18 102/68 08/16/20 10:33 81 08/16/20 07:30 36.4 C L 76 18 127/79 95 08/16/20 06:36 36.4 C L 80 18 126/77 95
[2020-08-16] MEDS: ATORVASTATIN 40 MG TAB PO SCH (21:01)
[2020-08-17] MEDS: MIDODRINE HCL 2.5 MG TAB PO SCH ×3 (06:45→15:46)
[2020-08-17] MEDS ORDERED: CEROVITE ADV FORMULA TAB PO SCH (08:00)
[2020-08-17] MEDS: PANTOprazole 40 MG TAB PO SCH (08:01)
[2020-08-17] MEDS: oxyCODONE HCL IR 5 MG TAB (IMMEDIATE RELEASE) PO PRN (08:01)
[2020-08-17] MEDS: LIDOCAINE 5% 1 PATCH TD SCH (08:02)
[2020-08-17] MEDS: APIXABAN 5 MG TABLET PO SCH (08:02)
[2020-08-17] MEDS: DULoxetine HCL 60 MG CAP PO SCH (08:02)
[2020-08-17] MEDS: ASPIRIN 81 MG ECTAB PO SCH (08:02)
[2020-08-17] MEDS: UMECLIDINIUM/VILANTEROL 62.5/25MCG 7 PUFFS/INHALER INH SCH (08:02)
[2020-08-17] MEDS: GABAPENTIN 100 MG CAP PO SCH (08:02)
[2020-08-17] MEDS ORDERED: METOCLOPRAMIDE HCL INJ 5 MG/ML 2 ML VIAL IV STA (09:46)
[2020-08-17] MEDS: DOXYCYCLINE HYCLATE 100 MG CAP PO SCH (10:03)
[2020-08-17] MEDS: PROMETHAZINE HCL 6.25 MG in SODIUM CHLORIDE 0.9% 50 ML IV PRN (13:56)
[2020-08-17] MEDS ORDERED: HEPARIN 100 UNIT/ML 5ML FLUSH FLUSH STA (15:43)
--- NOTE | 2020-08-17 16:58 | Hospitalist Progress Note ---
Date of Service August 17, 2020 Assessment & Plan (1) Encephalopathy: possible related to pneumonia vs narcotic and neuropsychotropic meds CT head showed no hemorrhage, mass effect, or evidence of acute territorial ischemia Ammonia level normal No focal neuro deficit on exam Continue Oxycodone at a lower dose 5mg and gabapentin at 100mg BID Will continue monitor closely Pneumonia Possible HCAP (recent hospital admission) vs aspiration pneumonia CXR showed airspace consolidation is again seen in the right mid to lower lung, typical in appearance for pneumonia/aspiration pneumonitis. Received IV cefepime in the ER Pt was started on Ertapenem and doxycycline Blood cx no growth Continue oxygen supplement Continue monitor closely Hypokalemia: Potassium was 2.3 on admission K 3.9 Continue monitor BMP Small cell lung cancer in adult: s/p 2 cycles of chemo cisplatin and etoposide along with xrt Continue follow up with Dr. Hebert Hypotension: Chronic hypotension, pt runs 90s-100s systolically Continue midodrine and fludrocortisone Continue monitor BP Anemia: likely in setting of chronic disease/malignancy Hgb 8.9 today No signs or symptoms of bleeding Continue monitor CBC CVA (cerebral vascular accident): Hx of CVA L cerebral 12/2019 CT head showed no acute intracranial abnormality continue eliquis, statin, asa DVT prophylaxis: Continue Eliquis 5mg bid Code status Full code Disposition Will discharge home with today Admission and Anticipated Discharge Date Admission Date: August 13, 2020 Subjective Pt was seen and examined for follow up confusion and weakness Lying in bed with no distress She said that she feels ok Denies any chest pain, palpitation, dizziness and SOB Review of Systems Review of Systems: All systems reviewed & are unremarkable except as noted in Subjective Physical Exam Physical Exam: General- No acute distress Head- atraumatic Eyes- PERRL, EOMI, ENT- oropharynx clear Neck- supple, no JVD Lungs- clear to auscultation Heart- regular rhythm Abdomen- normal bowel sounds, soft, nontender Extremities- no calf tenderness Neuro- alert, oriented x 3; PERRL, EOMI; no facial palsy; no dysarthria Skin- warm & dry Results & Data Results & Data ([facility]) Vital Signs (Past 12 Hours) Vital Signs Temp Pulse Pulse Pulse Resp BP BP 08/17/20 15:35 36.1 C L 99 H 91 H 18 98/63 L 102/62 08/17/20 14:37 36.1 C L 99 H 18 98/63 L 08/17/20 14:20 95 H 08/17/20 11:04 36.5 C 87 18 113/73 08/17/20 07:42 88 08/17/20 07:22 36.5 C 83 18 110/76 Pulse Ox 08/17/20 15:35 94 08/17/20 14:37 94 08/17/20 14:20 08/17/20 11:04 98 08/17/20 07:42 08/17/20 07:22 95
--- NOTE | 2020-08-24 23:42 | Discharge Summary ---
Date of Service August 17, 2020 Admission HPI Per Admitting Provider History obtained from patient and records. Patient is a fair historian. Medical history significant for CVA, orthostatic hypotension on fludrocortisone/midodrine Rx, small cell lung cancer sp chemoradiation, mood disorder, chronic back pain secondary to thoracic compression fracture, chronic anemia (baseline hemoglobin 9), RUE DVT on Eliquis, past tobacco abuse. Three [facility] admissions since May 2020. Last confinement 3 weeks ago for hypoxia, sepsis secondary to possible pneumonia. Patient discharged home. Following discharge, concerns about patient inability to moss picker new prescriptions since patient ex- was out of town. ER evaluation recommended by outpatient provider for possible placement if patient cannot care for self as per documentation. Patient noted by home health nurse to be more confused today. Having trouble remembering things. Poor appetite as per patient. Dry cough symptoms. Patient denies aspiration. Patient denies chest pain, S OB, headache. Denies taking home narcotics more than she should. Patient brought to the ER for evaluation. 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 Admission Exam Per Admitting Provider GENERAL: Comfortable, coherent, slow response to some questions, no respiratory distress SKIN: Pallor , warm HEENT: [place] palpebral conjunctivae, no ptosis, dry buccal mucosa NECK : Supple, no tenderness CHEST : Decreased breath sounds, no tenderness HEART : RRR, no obvious murmurs ABDOMEN: Some distention, nontender EXTREMITIES : No LE swelling/tenderness, no other conspicuous deformities noted NEUROLOGIC : Coherent, no facial asymmetry, slow response to some questions, gait and stance not assessed Principal Diagnosis Encephalopathy Pneumonia Hypokalemia: Small cell lung cancer in adult: Hypotension: Anemia: CVA (cerebral vascular accident): Discharge Exam General- No acute distress Head- atraumatic Eyes- PERRL, EOMI, ENT- oropharynx clear Neck- supple, no JVD Lungs- clear to auscultation Heart- regular rhythm Abdomen- normal bowel sounds, soft, nontender Extremities- no calf tenderness Neuro- alert, oriented x 3; PERRL, EOMI; no facial palsy; no dysarthria Skin- warm & dry Discharge Data Allergies Allergy/AdvReac Type Severity Reaction Status Date / Time mushroom Allergy Severe anaphylaxis Verified 08/13/20 19:08 Penicillins Allergy Severe anaphylaxis, Verified 08/13/20 19:08 facial & throat swelling acetazolamide Allergy Intermediate rash, hives Verified 08/13/20 19:08 mold Allergy Unknown unknown Verified 08/13/20 19:08 reaction sumatriptan AdvReac Intermediate flushing, Verified 08/13/20 19:08 heart racing Consultations 08/13/20 19:08 ED Decision to Admit Stat Ordered Studies 08/13/20 17:44 CT head/brain wo con Stat CT SCAN OF THE BRAIN WITHOUT IV CONTRAST CLINICAL HISTORY: Change in mental status. COMPARISON STUDY: CT of the brain dated 07/26/2020. TECHNIQUE: Unenhanced axial CT scan of the brain is performed from the vertex to the skull base. A dose lowering technique was utilized adhering to the principles of ALARA. CT DOSE: 1464.62 mGy.cm FINDINGS: Brain parenchyma: There are age-related involutional changes noting mild subcortical and periventricular microangiopathic change. There is no hemorrhage, mass effect, or evidence of acute territorial ischemia by CT criteria. Chase- white matter differentiation is preserved. No extra-axial fluid collection is seen. Ventricles, sulci, cisterns: Prominent secondary to involutional change. Intracranial vasculature: There is atherosclerotic calcification of the cavernou s carotid and vertebral arteries.. Calvarium: Unremarkable. Sinuses and mastoids: A 1.8 cm retention cyst is noted in the left maxillary antrum. The remaining visualized paranasal sinuses are clear. There is a small left mastoid effusion. The right mastoid air cells are well pneumatized. Orbits: The bony orbits are grossly intact. There are bilateral ocular lens implants. IMPRESSION: There is no hemorrhage, mass effect, or evidence of acute territorial ischemia by CT criteria. ACT 112: Negative or not required by law. Electronically signed by: Cruz Nj M.D. 08/13/2020 6:46 PM Dictated: 08/13/201843Transcribed: 08/13/201843 SINGLE VIEW CHEST CLINICAL HISTORY: Generalized weakness. Dyspnea. FINDINGS: An AP, portable, upright chest radiograph is compared to chest x-ray and chest CT dated 07/26/2020. A right internal jugular central venous infusion port is unchanged in position. The cardiomediastinal silhouette is unremarkable noting atherosclerotic calcification of the thoracic aorta. Emphysema and chronic interstitial thickening is similar to previous. Airspace consolidation is again seen throughout the right mid to lower lung. This has increased from 07/26/2020. Atelectasis is noted at the left lung base. No large pleural effusion or pneumothorax is seen. The skeletal structures are osteopenic. The bony thorax is grossly intact. IMPRESSION: 1. Emphysema. 2. Airspace consolidation is again seen in the right mid to lower lung, typical in appearance for pneumonia/aspiration pneumonitis. This has increased as compared to 07/26/2020. Radiographic follow-up to resolution is recommended. ACT 112: Negative or not required by law. Electronically signed by: Cruz Nj M.D. 08/13/2020 6:06 PM Dictated: 08/13/201803Transcribed: 08/13/201803 Hospital Course (1) Encephalopathy: possible related to pneumonia vs narcotic and neuropsychotropic meds CT head showed no hemorrhage, mass effect, or evidence of acute territorial ischemia Ammonia level normal No focal neuro deficit on exam Continue Oxycodone at a lower dose 5mg and gabapentin at 100mg BID Will continue monitor closely Pneumonia Possible HCAP (recent hospital admission) vs aspiration pneumonia CXR showed airspace consolidation is again seen in the right mid to lower lung, typical in appearance for pneumonia/aspiration pneumonitis. Received IV cefepime in the ER Pt was started on Ertapenem and doxycycline Blood cx no growth Continue oxygen supplement Continue monitor closely Hypokalemia: Potassium was 2.3 on admission K 3.9 Continue monitor BMP Small cell lung cancer in adult: s/p 2 cycles of chemo cisplatin and etoposide along with xrt Continue follow up with Dr. Hebert Hypotension: Chronic hypotension, pt runs 90s-100s systolically Continue midodrine and fludrocortisone Continue monitor BP Anemia: likely in setting of chronic disease/malignancy Hgb 8.9 today No signs or symptoms of bleeding Continue monitor CBC CVA (cerebral vascular accident): Hx of CVA L cerebral 12/2019 CT head showed no acute intracranial abnormality continue eliquis, statin, asa DVT prophylaxis: Continue Eliquis 5mg bid Code status Full code Disposition Will discharge home with HH today Total Time Total Time Spent Total Time Spent (In Minutes): 35 minutes Total Time Includes: Examination of the Patient, Discharge Planning, Medication Reconciliation, Communication With Other Providers and Other Discharge Plan Discharge Items Patient Disposition: Home - Home Health Services Reason For Visit: ENCEPHALOPATHY Discharge Diagnosis: Encephalopathy Pneumonia Hypokalemia: Small cell lung cancer in adult: Hypotension: Anemia: CVA (cerebral vascular accident): Activity: Resume your previous activity Non-emergency contact: Primary Care Provider Call non-emergency contact if: you have any medication questions and your symptoms worsen Follow-up/Referrals: Hany Glaser MD [Primary Care Provider] - (Date & Time 08/23/2020 11:00 AM Provider Hany Glaser MD Department [facility] ) Diet: Heart Healthy Diet Texture: Easy to Chew Addtl Attending Provider Instructions: Follow up with your primary care provider Dr. Glaser on 08/23/2020 at 11:00 AM at the [facility] Continue physical and occupational therapy Complete the course of the antibiotic Check BMP in 1 week to monitor electrolytes and renal function Fall precaution Continue oxygen supplement with 2L NC Oxycodone decrease to 5mg as every 6 hours as needed gabapentin decreased to 100mg twice a day Please hold next dose of oxycodone and gabapentin if you develop any lethargy or drowsiness Pending Studies at Discharge: No Stand-Alone Forms: [facility], Smoking Cessation Medications and DC Order Prescriptions: Continued albuterol sulfate 90 mcg/actuation HFA aerosol inhaler 2 puff INH Q6H PRN (Reason: Shortness Of Breath Or Wheezing) Qty: 18 RF: 3 duloxetine 60 mg capsule,delayed release(DR/EC) 60 mg PO QAM RF: 0 omeprazole 20 mg capsule,delayed release(DR/EC) 20 mg PO BID 30 Days Qty: 60 RF: 3 magnesium oxide 400 mg (241.3 mg magnesium) Tablet 400 mg PO BID Qty: 60 RF: 0 atorvastatin 40 mg tablet 40 mg PO HS RF: 0 ondansetron 8 mg tablet,disintegrating 8 mg PO Q8H PRN (Reason: Nausea And Vomiting) RF: 0 fludrocortisone 0.1 mg tablet 0.1 mg PO BID RF: 0 Anoro Ellipta 62.5-25 mcg/actuation blister with device 1 puffs INH QAM RF: 0 Phospha 250 Neutral 250 mg tablet 1 tab PO BID Qty: 30 RF: 0 Eliquis 5 mg tablet 5 mg PO BID 30 Days Qty: 60 RF: 0 acetaminophen [Tylenol] 325 mg Tablet 325 - 650 mg PO DIRECTED PRN (Reason: FEVER/PAIN) RF: 0 hydroxyzine HCl 50 mg Tablet 50 mg PO DAILY PRN (Reason: Anxiety) RF: 0 multivitamin-calcium carb Tablet,Chewable 1 tab PO DAILY RF: 0 midodrine 2.5 mg tablet 2.5 mg PO TID RF: 0 cyclobenzaprine 10 mg tablet 10 mg PO TID PRN (Reason: Muscle Spasm) RF: 0 aspirin 81 mg Tablet,Delayed Release (Dr/Ec) 81 mg PO QAM Qty: 90 RF: 0 lidocaine 5 % Adhesive Patch,Medicated 1 patch transdermal HS PRN (Reason: Pain) Qty: 30 RF: 0 Changed gabapentin 100 mg capsule 100 mg PO BID Qty: 0 RF: 0 oxycodone 10 mg Tablet 5 mg PO Q6H PRN (Reason: Pain, Moderate) Qty: 0 RF: 0 Discharge Orders: Discharge Order (Routine); Ordered 08/17/20 Ordered By: Shefali Acharya Admission Data Admit Date/Time: 08/13/20 20:25 Attending Provider: Shefali Acharya Admit Provider: Joe Goldsmith Primary Care Provider: Hany Glaser Other Providers: Joe Goldsmith ; [facility] Other Interventions: Discharge Summary Assessment (RN) Last Done: 08/17/20 15:35
== END 2020-08-17 17:37 | disposition home health service (06) ==
LOC: ED 17:26 → 2W 20:25

== ENCOUNTER 2020-09-02 07:39 | Observation (INO) ==
[2020-09-02] MEDS ORDERED: SODIUM CHLORIDE 0.9% 1000ML 1,000 ML IV STA (08:04)
[2020-09-02] MEDS ORDERED: ONDANSETRON INJ 2 MG/ML 2 ML VIAL IV STA (08:04)
--- NOTE | 2020-09-02 08:32 | Emergency Department Note ---
History of Present Illness General Chief complaint: Abdominal Pain Time Seen by Provider: 09/02/20 07:46 Source: patient and RN notes reviewed Mode of arrival: ambulatory Limitations: no limitations History of Present Illness Provider complaint: abdominal pain, lung cancer Maximum Pain Intensity: 7 This patient is a 65-year-old female who presents to the emergency department with complaints of diffuse abdominal pain for the last 2 days but worse since last night. Patient states that she has not had a significant bowel movement for the last 2 weeks. 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 Patient is a she does take oxycodone for pain, she does not need anything for pain in presently. She is also on a blood thinner, apixaban. She a rash to the bilateral upper extremities that has been present for a long time. She denies any fevers, chest pain or worsening shortness of breath. She denies any blood in the stools. She denies any vomiting. Home Medications Medication Instructions Recorded Confirmed Type albuterol sulfate 90 mcg/actuation 2 puff INH Q6H PRN #18 gm 10/23/19 09/02/20 Rx aerosol inhaler duloxetine 60 mg PO QAM 01/03/20 09/02/20 History omeprazole 20 mg PO BID 30 Days #60 cap 01/27/20 09/02/20 Rx magnesium oxide 400 mg PO BID #60 tab 02/07/20 09/02/20 Rx Anoro Ellipta 1 puffs INH QAM 05/29/20 09/02/20 History atorvastatin 40 mg PO HS 05/29/20 09/02/20 History fludrocortisone 0.1 mg PO BID 05/29/20 09/02/20 History ondansetron 8 mg PO Q8H PRN 05/29/20 09/02/20 History cyclobenzaprine 10 mg PO TID PRN 07/02/20 09/02/20 History aspirin 81 mg PO QAM #90 tab 07/05/20 09/02/20 Rx lidocaine 1 patch TRANSDERMAL HS PRN #30 ea 07/05/20 09/02/20 Rx Phospha 250 Neutral 1 tab PO BID #30 tab 07/28/20 09/02/20 Rx acetaminophen [Tylenol] 325 - 650 mg PO DIRECTED PRN 08/13/20 09/02/20 History hydroxyzine HCl 50 mg PO DAILY PRN 08/13/20 09/02/20 History midodrine 2.5 mg PO TID 08/13/20 09/02/20 History multivitamin-calcium carb 1 tab PO DAILY 08/13/20 09/02/20 History gabapentin 100 mg PO BID #0 cap 08/17/20 09/02/20 Rx oxycodone 5 mg PO Q6H PRN #0 tab 08/17/20 09/02/20 Rx Eliquis 2.5 mg PO BID 09/02/20 09/02/20 History docusate sodium 100 mg PO BID #60 cap 09/03/20 Rx polyethylene glycol 3350 [ClearLax] 17 g PO DAILY #238 g 09/03/20 Rx Allergies Allergy/AdvReac Type Severity Reaction Status Date / Time mushroom Allergy Severe anaphylaxis Verified 09/02/20 08:04 Penicillins Allergy Severe anaphylaxis, Verified 09/02/20 08:04 facial & throat swelling acetazolamide Allergy Intermediate rash, hives Verified 09/02/20 08:04 mold Allergy Unknown unknown Verified 09/02/20 08:04 reaction sumatriptan AdvReac Intermediate flushing, Verified 09/02/20 08:04 heart racing Past Med/Surg History Medical History (Updated 09/04/20 @ 00:06 by Background Judie) Abdominal pain Acute hypokalemia Acute kidney injury Acute shoulder pain Now a constant ache - no prescription meds needed Altered mental status Anxiety Chronic venous insufficiency follows with vascular (Dr. Carlson) CKD (chronic kidney disease), stage III COPD with emphysema Dentalgia Hypertension Hypokalemia Hypomagnesemia Hypoxia Kidney stones LAD (lymphadenopathy), mediastinal Major depressive disorder, recurrent episode with anxious distress Daughter from OD in 2016 Migraine Nausea & vomiting Neutropenia with fever Nicotine dependence Palliative care encounter Pancytopenia Pneumonia Polysubstance overdose Hx of 2017 Pulmonary nodule "7 mm RUL nodule, stable 09/25/15 - 09/16/16; repeat 6 mos" Small cell lung cancer in adult Diagnosed 10/30/2019 - metastatic to lymph nodes Surgical History History of bronchoscopy 10/30/2019 - with EBUS History of cataract surgery 2004 - bilateral History of section 1991 History of colonoscopy unsuccessful (poor bowel prep) History of cystoscopy 2007 - with stent History of dental surgery 02/2019 - Full upper teeth extracted S/P arthroscopy of left knee S/P arthroscopy of right knee Family History Grandmother (Maternal) , Passed in 80's of metastatic cancer (unknown primary) No problems noted. Mother , Passed age 93 of natural causes No problems noted. Father , Passed age 97 of natural causes No problems noted. Brother No problems noted. Daughter , Passed age 24 from Over Dose No problems noted. 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 and A total of 10 systems reviewed and were otherwise negative Physical Exam Vital Signs Vital Signs - 24 hr 09/02/20 07:55 Temperature 37.4 C Temperature Source Oral Pulse Rate 94 H Respiratory Rate 23 Respiratory Effort / Characteristics Non-Labored Spontaneous Respiratory Depth Normal Blood Pressure 144/80 H Blood Pressure Mean 101 Blood Pressure Position Sitting Pulse Oximetry 95 Oxygen Delivery Method Nasal Cannula Oxygen Flow Rate 2 Sepsis Recent Fever Within 48 Hours No Sepsis New/Unexplained Change in Mental Status N/A Sepsis Action Taken by Nursing No Action Required Vital signs reviewed. General: Chronically ill-appearing 65 yo female, in no significant distress. HEENT: No scleral icterus, PERRLA, neck supple. Atraumatic. Dentures in place, poor oral hygiene. Likely thrush Cardiovascular: Regular rate and rhythm, no extra sounds. Pulmonary: Coarse breath sounds, left greater than right basilar rhonchi. Slightly increased work of breathing on nasal cannula oxygen, moist cough Abdomen: Soft, diffuse abdominal tenderness, no tympany to percussion, no rebound, no guarding, nondistended, positive bowel sounds. Musculoskeletal: Atraumatic, no peripheral edema. Neurologic: Patient awake alert and oriented x 3 Skin: Warm, dry, nonblanching petechial rash to the bilateral upper extremities. Right subclavian port visualized Course Administered Medications Discontinued Medications Acetaminophen (Acetaminophen 325 Mg Tab) 650 mg PO Q4H PRN PRN Reason: FEVER/PAIN Stop: 10/02/20 18:02 Last Admin: 09/03/20 11:59 Dose: 650 mg Documented by: [id number] Apixaban (Apixaban 2.5 Mg Tab) 2.5 mg PO BID LC Stop: 10/02/20 21:14 Last Admin: 09/03/20 08:45 Dose: 2.5 mg Documented by: [id number] Admin: 09/02/20 23:38 Dose: 2.5 mg Documented by: [id number] Aspirin (Aspirin 81 Mg Ectab) 81 mg PO QAM LC Stop: 10/03/20 08:59 Last Admin: 09/03/20 08:44 Dose: 81 mg Documented by: [id number] Atorvastatin Calcium (Atorvastatin 40 Mg Tab) 40 mg PO HS LC Stop: 10/02/20 20:59 Last Admin: 09/02/20 20:08 Dose: 40 mg Documented by: [id number] Bisacodyl (Bisacodyl 10 Mg Supp) 10 mg IN NOW STA Stop: 09/02/20 12:18 Last Admin: 09/02/20 12:59 Dose: 10 mg Documented by: [id number] Duloxetine HCl (Duloxetine Hcl 60 Mg Cap) 60 mg PO QAM LC Stop: 10/03/20 08:59 Last Admin: 09/03/20 08:43 Dose: 60 mg Documented by: [id number] Fludrocortisone Acetate (Fludrocortisone Acetate 0.1 Mg Tab) 0.1 mg PO BID LC Stop: 10/02/20 20:59 Last Admin: 09/03/20 08:43 Dose: 0.1 mg Documented by: [id number] Admin: 09/02/20 20:09 Dose: 0.1 mg Documented by: [id number] Gabapentin (Gabapentin 100 Mg Cap) 100 mg PO BID LC Stop: 10/02/20 20:59 Last Admin: 09/03/20 08:44 Dose: 100 mg Documented by: [id number] Admin: 09/02/20 20:09 Dose: 100 mg Documented by: [id number] Sodium Chloride (Nss 1000ml) 1,000 mls @ 125 mls/hr IV .Q8H STA Stop: 09/02/20 16:03 Last Infusion: 09/02/20 17:37 Dose: 0 mls/hr Documented by: [id number] Admin: 09/02/20 08:37 Dose: 125 mls/hr Documented by: [id number] Potassium Chloride 40 meq/ (Sodium Chloride) 1,020 mls @ 125 mls/hr IV .Q8H10M LC Stop: 10/02/20 18:59 Last Infusion: 09/03/20 07:57 Dose: 0 mls/hr Documented by: [id number] Infusion: 09/02/20 20:30 Dose: 0 mls/hr Documented by: [id number] Admin: 09/02/20 19:36 Dose: 125 mls/hr Documented by: [id number] Potassium Chloride (K Heladio / Wtr) 10 meq in 100 mls @ 100 mls/hr IV Q1H LC Stop: 09/02/20 20:44 Last Infusion: 09/02/20 21:40 Dose: 0 mls/hr Documented by: [id number] Admin: 09/02/20 20:27 Dose: 100 mls/hr Documented by: [id number] Infusion: 09/02/20 20:27 Dose: 100 mls/hr Documented by: [id number] Admin: 09/02/20 19:38 Dose: 100 mls/hr Documented by: [id number] Potassium Chloride 40 meq/ (Sodium Chloride) 1,020 mls @ 125 mls/hr IV .Q8H10M ONE Stop: 09/03/20 05:54 Last Infusion: 09/03/20 07:56 Dose: 0 mls/hr Documented by: [id number] Admin: 09/02/20 22:15 Dose: 125 mls/hr Documented by: [id number] Magnesium Sulfate/Dextrose (Magnesium Sulfate / D5w) 1 gm in 100 mls @ 50 mls/hr IV ONE ONE Stop: 09/02/20 22:59 Last Infusion: 09/02/20 23:35 Dose: 0 mls/hr Documented by: [id number] Admin: 09/02/20 21:29 Dose: 50 mls/hr Documented by: [id number] Ioversol (Optiray 320 100ml) 89 ml IV ONCE ONE Stop: 09/02/20 09:21 Last Admin: 09/02/20 09:20 Dose: 89 ml Documented by: [id number] Magnesium Oxide (Magnesium Oxide 400 Mg Tab) 400 mg PO BID [facility] Stop: 10/02/20 20:59 Last Admin: 09/03/20 08:43 Dose: 400 mg Documented by: [id number] Admin: 09/02/20 20:07 Dose: 400 mg Documented by: [id number] Midodrine (Midodrine Hcl 2.5 Mg Tab) 2.5 mg PO 0800,1200,1700 [facility] Stop: 10/02/20 18:29 Last Admin: 09/03/20 11:59 Dose: 2.5 mg Documented by: [id number] Admin: 09/03/20 07:27 Dose: 2.5 mg Documented by: [id number] Admin: 09/02/20 20:10 Dose: 2.5 mg Documented by: [id number] Miscellaneous (Remove Lidoderm Patch) 1 ea N/A DAILY@2100 [facility] Stop: 10/02/20 20:59 Last Admin: 09/02/20 20:12 Dose: Not Given Documented by: [id number] Multivitamins/Minerals (Cerovite Adv Formula Tab) 1 tab PO DAILY [facility] Stop: 10/03/20 08:59 Last Admin: 09/03/20 08:44 Dose: 1 tab Documented by: [id number] Ondansetron HCl (Ondansetron Inj 2 Mg/Ml 2 Ml Vial) 4 mg IV NOW STA Stop: 09/02/20 08:05 Last Admin: 09/02/20 08:37 Dose: 4 mg Documented by: [id number] Ondansetron HCl (Ondansetron 8mg Od Tab) 8 mg PO Q8H PRN PRN Reason: Nausea And Vomiting Stop: 10/02/20 18:02 Last Admin: 09/03/20 08:42 Dose: 8 mg Documented by: [id number] Oxycodone HCl (Oxycodone Hcl Ir 5 Mg Tab (Immediate Release)) 5 mg PO Q6H PRN PRN Reason: Pain, Moderate Stop: 09/16/20 18:02 Last Admin: 09/03/20 07:26 Dose: 5 mg Documented by: [id number] Admin: 09/03/20 00:59 Dose: 5 mg Documented by: [id number] Admin: 09/02/20 18:42 Dose: 5 mg Documented by: [id number] Pantoprazole Sodium (Pantoprazole 40 Mg Tab) 40 mg PO BID LC Stop: 10/02/20 20:59 Last Admin: 09/03/20 08:44 Dose: 40 mg Documented by: [id number] Admin: 09/02/20 20:11 Dose: 40 mg Documented by: [id number] Potassium Chloride (Potassium Chloride Crtab 20 Meq Tabcr) 40 meq PO NOW STA Stop: 09/02/20 10:15 Last Admin: 09/02/20 10:23 Dose: 40 meq Documented by: [id number] Potassium Chloride (Potassium Chloride Crtab 20 Meq Tabcr) 40 meq PO NOW STA Stop: 09/02/20 18:04 Last Admin: 09/02/20 18:41 Dose: 40 meq Documented by: [id number] Potassium Phosphate (Pot Phosphate Monobasic W/ Sod Tab) 1 tab PO BID LC Stop: 10/02/20 20:59 Last Admin: 09/03/20 08:44 Dose: 1 tab Documented by: [id number] Admin: 09/02/20 20:11 Dose: 1 tab Documented by: [id number] Umeclidinium/Vilanterol (Umeclidinium/Vilanterol 62.5/25mcg 7 Puffs/Inhaler) 1 puffs INH QAM LC Stop: 10/03/20 08:59 Last Admin: 09/03/20 08:46 Dose: 1 puffs Documented by: [id number] Medical Decision Making Differential Diagnosis Appendicitis, infections, diverticulitis, UTI, obstruction, mesenteric ischemia, aortic pathology, inflammatory bowel disease, renal colic, PUD, pancreatitis, biliary pathology, hernia, volvulus, constipation, as well as other pathologies. Medical Records Attestation: I reviewed the patient's medical records. Home Medications Current Medication List: was personally reviewed by me Laboratory Data Attestation: I reviewed the patient's lab results. Result diagrams: 09/03/20 07:15 09/03/20 07:15 Lab Results 05/27/21 05/27/21 05/27/21 Range/Units 08:27 08:27 08:27 WBC 6.48 (4.8-10.8) K/uL RBC 2.31 L (4.2-5.4) M/uL Hgb 7.5 L (12.0-16.0) g/dL Hct 22.4 L (37-47) % MCV 97.0 (80-100) fL MCH 32.5 (25-34) pg MCHC 33.5 (32-36) g/dL RDW Std Deviation 63.2 H (36.4-46.3) fL RDW Coeff of Anjelica 18.4 H (11.5-14.5) % Plt Count 162 (130-400) K/uL MPV 10.2 (7.4-10.4) fL Immature Gran % (Auto) 0.2 % Neut % (Auto) 82.6 % Lymph % (Auto) 6.5 % Cedar % (Auto) 9.9 % Eos % (Auto) 0.6 % Baso % (Auto) 0.2 % Neut # (Auto) 5.36 (1.4-6.5) K/uL Lymph # (Auto) 0.42 L (1.2-3.4) K/uL Cedar # (Auto) 0.64 H (0.11-0.59) K/uL Eos # (Auto) 0.04 (0-0.5) K/uL Baso # (Auto) 0.01 (0-0.2) K/uL Immature Gran # (Auto) 0.01 (0.00-0.02) K/uL RBC Morphology Unremarkable PT (9.0-12.0) Seconds INR (0.9-1.1) APTT (21.0-31.0) Seconds PTT Ratio Sodium 139 (136-145) mmol/L Potassium 2.6 L (3.5-5.1) mmol/L Chloride 103 (98-107) mmol/L Carbon Dioxide 31 (21-32) mmol/L Anion Gap 5.0 (3-11) BUN 5 L (7-18) mg/dl Creatinine 0.43 L (0.6-1.2) mg/dl Est Cr Clr Drug Dosing 129.1 ml/min Est GFR ( Amer) 123.7 ml/min Est GFR (Non-Af Amer) 106.7 ml/min BUN/Creatinine Ratio 11.9 (10-20) Glucose 94 (70-99) mg/dl Lactate 0.8 (0.4-2.0) mmol/L Calcium 8.2 L (8.5-10.1) mg/dl Total Bilirubin 0.4 (0.2-1) mg/dl AST 16 (15-37) U/L ALT 14 (12-78) U/L Alkaline Phosphatase 96 (45-117) U/L Ammonia (11-32) umol/L Total Protein 6.1 L (6.4-8.2) gm/dl Albumin 1.7 L (3.4-5.0) gm/dl Globulin 4.4 H (2.5-4.0) gm/dl Albumin/Globulin Ratio 0.4 L (0.9-2) Lipase 25 L (73-393) U/L Urine Color Urine Appearance (Clear) Urine pH (4.5-7.5) Ur Specific [place] (1.000-1.030) Urine Protein (Negative) Urine Glucose (UA) (Negative) Urine Ketones (Negative) Urine Blood (Negative) Urine Nitrite (Negative) Urine Bilirubin (Negative) Urine Urobilinogen (Negative) Ur Leukocyte Esterase (Negative) COVID-19 Eval Order SARS-CoV-2 (PCR) (Negative) 09/02/20 09/02/20 09/02/20 Range/Units 08:27 08:27 08:45 WBC (4.8-10.8) K/uL RBC (4.2-5.4) M/uL Hgb (12.0-16.0) g/dL Hct (37-47) % MCV (80-100) fL MCH (25-34) pg MCHC (32-36) g/dL RDW Std Deviation (36.4-46.3) fL RDW Coeff of Anjelica (11.5-14.5) % Plt Count (130-400) K/uL MPV (7.4-10.4) fL Immature Gran % (Auto) % Neut % (Auto) % Lymph % (Auto) % Cedar % (Auto) % Eos % (Auto) % Baso % (Auto) % Neut # (Auto) (1.4-6.5) K/uL Lymph # (Auto) (1.2-3.4) K/uL Cedar # (Auto) (0.11-0.59) K/uL Eos # (Auto) (0-0.5) K/uL Baso # (Auto) (0-0.2) K/uL Immature Gran # (Auto) (0.00-0.02) K/uL RBC Morphology PT 11.6 (9.0-12.0) Seconds INR 1.2 H (0.9-1.1) APTT 30.6 (21.0-31.0) Seconds PTT Ratio 1.2 Sodium (136-145) mmol/L Potassium (3.5-5.1) mmol/L Chloride (98-107) mmol/L Carbon Dioxide (21-32) mmol/L Anion Gap (3-11) BUN (7-18) mg/dl Creatinine (0.6-1.2) mg/dl Est Cr Clr Drug Dosing ml/min Est GFR ( Amer) ml/min Est GFR (Non-Af Amer) ml/min BUN/Creatinine Ratio (10-20) Glucose (70-99) mg/dl Lactate (0.4-2.0) mmol/L Calcium (8.5-10.1) mg/dl Total Bilirubin (0.2-1) mg/dl AST (15-37) U/L ALT (12-78) U/L Alkaline Phosphatase (45-117) U/L Ammonia 28.5 (11-32) umol/L Total Protein (6.4-8.2) gm/dl Albumin (3.4-5.0) gm/dl Globulin (2.5-4.0) gm/dl Albumin/Globulin Ratio (0.9-2) Lipase (73-393) U/L Urine Color Yellow Urine Appearance Clear (Clear) Urine pH 7.5 (4.5-7.5) Ur Specific [place] 1.007 (1.000-1.030) Urine Protein Negative (Negative) Urine Glucose (UA) Negative (Negative) Urine Ketones Negative (Negative) Urine Blood Negative (Negative) Urine Nitrite Negative (Negative) Urine Bilirubin Negative (Negative) Urine Urobilinogen Negative (Negative) Ur Leukocyte Esterase Negative (Negative) COVID-19 Eval Order SARS-CoV-2 (PCR) (Negative) 09/02/20 09/02/20 Range/Units 15:13 15:13 WBC (4.8-10.8) K/uL RBC (4.2-5.4) M/uL Hgb (12.0-16.0) g/dL Hct (37-47) % MCV (80-100) fL MCH (25-34) pg MCHC (32-36) g/dL RDW Std Deviation (36.4-46.3) fL RDW Coeff of Anjelica (11.5-14.5) % Plt Count (130-400) K/uL MPV (7.4-10.4) fL Immature Gran % (Auto) % Neut % (Auto) % Lymph % (Auto) % Cedar % (Auto) % Eos % (Auto) % Baso % (Auto) % Neut # (Auto) (1.4-6.5) K/uL Lymph # (Auto) (1.2-3.4) K/uL Cedar # (Auto) (0.11-0.59) K/uL Eos # (Auto) (0-0.5) K/uL Baso # (Auto) (0-0.2) K/uL Immature Gran # (Auto) (0.00-0.02) K/uL RBC Morphology PT (9.0-12.0) Seconds INR (0.9-1.1) APTT (21.0-31.0) Seconds PTT Ratio Sodium (136-145) mmol/L Potassium (3.5-5.1) mmol/L Chloride (98-107) mmol/L Carbon Dioxide (21-32) mmol/L Anion Gap (3-11) BUN (7-18) mg/dl Creatinine (0.6-1.2) mg/dl Est Cr Clr Drug Dosing ml/min Est GFR ( Amer) ml/min Est GFR (Non-Af Amer) ml/min BUN/Creatinine Ratio (10-20) Glucose (70-99) mg/dl Lactate (0.4-2.0) mmol/L Calcium (8.5-10.1) mg/dl Total Bilirubin (0.2-1) mg/dl AST (15-37) U/L ALT (12-78) U/L Alkaline Phosphatase (45-117) U/L Ammonia (11-32) umol/L Total Protein (6.4-8.2) gm/dl Albumin (3.4-5.0) gm/dl Globulin (2.5-4.0) gm/dl Albumin/Globulin Ratio (0.9-2) Lipase (73-393) U/L Urine Color Urine Appearance (Clear) Urine pH (4.5-7.5) Ur Specific [place] (1.000-1.030) Urine Protein (Negative) Urine Glucose (UA) (Negative) Urine Ketones (Negative) Urine Blood (Negative) Urine Nitrite (Negative) Urine Bilirubin (Negative) Urine Urobilinogen (Negative) Ur Leukocyte Esterase (Negative) COVID-19 Eval Order Covid19 at [facility] SARS-CoV-2 (PCR) NEGATIVE (Negative) Imaging Data Radiologist's Impression: Abdomen/Pelvis CT 09/02/20 08:04 CT abd pelvis IV con only CLINICAL HISTORY: Lung carcinoma. Right-sided abdominal pain. Constipation. COMPARISON STUDY: 07/26/2020 TECHNIQUE: Patient was scanned in a dynamic helical fashion during intravenous administration of 89 cc of Optiray 320 A dose lowering technique was utilized adhering to the principles of ALARA. CT DOSE: 494.92 mGy.cm FINDINGS: Lower chest: There is a [id number] right pleural effusion and trace left pleural effusion. There are patchy airspace opacities within the right middle and lower lobe. There is subpleural interstitial thickening/edema. There is a small pericardial effusion. Liver: The contrast-enhanced liver is normal in size, contour, and attenuation. There is no intrahepatic biliary ductal dilatation. The hepatic veins and portal veins are patent. Gallbladder: Distended. There is an equivocal gallbladder wall tension sign. Clinical correlation with regards to cholecystitis recommended. Spleen: Normal in size and attenuation. Pancreas: Pancreas appears atrophic. Adrenal glands: Unremarkable. Kidneys: There is symmetric renal cortical enhancement. The kidneys are normal in size without hydronephrosis. Bowel: There are no transition zones indicate bowel obstruction. The appendix appears normal. There is no acute diverticulitis. There is moderate rectal stool. There is borderline rectal wall thickening. Peritoneum: There is no intraperitoneal free air or abdominal ascites. Vasculature: The abdominal aorta is normal in course and caliber. Adenopathy: None. Pelvic viscera: The uterus appears surgically absent. Skeletal structures: No destructive osseous lesions are seen. IMPRESSION: 1. Small right pleural effusion and trace left pleural effusion. Small pericardial effusion. 2. Right middle lobe and right lower lobe patchy airspace opacities 3. Pulmonary interstitial edema/septal thickening 4. No evidence of bowel obstruction. No evidence of free air 5. Normal appendix. No evidence of acute diverticulitis 6. Moderate rectal stool with borderline rectal wall thickening, and minimal perirectal edema. Stercoral colitis not excluded 7. Distended gallbladder demonstrating equivocal increased luminal pressure. Clinical correlation with regards to cholecystitis recommended. ACT 112: Negative or not required by law. Electronically signed by: Derek Vasquez M.D. 09/02/2020 9:54 AM Gallbladder Ultrasound 09/02/20 10:15 ABDOMINAL ULTRASOUND, RIGHT UPPER QUADRANT HISTORY: Right upper quadrant abdominal pain.. COMPARISON: Abdomen and pelvis CT 09/02/2020. FINDINGS: Pancreas: The pancreatic tail is obscured by overlying bowel gas. The remaining portions of the pancreas are within normal limits. Liver: Unremarkable. Gallbladder: The gallbladder remains mildly distended. No gallbladder wall thickening. No gallstones. Negative sonographic Dutton sign. CBD: 7 mm. This is slightly dilated for age. Right kidney: No hydronephrosis. IMPRESSION: 1. Mildly distended gallbladder. No gallbladder wall thickening. No gallstones. 2. Common bile duct measures 7 mm. This is slightly distended for age. Recommend correlation with LFTs or ERCP to exclude the less likely possibility of an obstructive process. ACT 112: Negative or not required by law. Electronically signed by: Avni Gongora M.D. 09/02/2020 11:17 AM Blood Pressure Blood Pressure Findings: Elevated blood pressure Blood Pressure Disposition: elevated BP felt to be situational MDM Narrative This patient was evaluated and appeared to be in some discomfort. IV access was obtained and laboratory work was drawn. An order for cardiac monitoring was placed and the patient is noted to be in a normal sinus rhythm at 83 bpm. Patient was hydrated with normal saline solution, given IV Zofran for nausea. The patient declined the need for any pain medication. CT imaging of the abdomen pelvis was ordered. Patient's gallbladder was noted to be distended. There is no clear evidence of obstruction. Ultrasound was recommended and follow-up, there is mild CBD dilatation, there is no gallbladder wall edema or thickening. There is evidence of stool in the rectum with surrounding rectal wall thickening and minimal perirectal edema. On my reevaluation of the patient, she is asleep. She has refused an enema. She was amenable to Dulcolax suppository. Patient's was at work. Patient states she has nobody at home to care for her. Given her advanced metastatic small cell lung cancer, case management was consulted. A palliative care consult was placed after they spoke with the patient. They were unable to arrange for hospice care on short notice but both the patient and her are agreeable. Patient was discussed with the [facility] service until these arrangements can be made. Impression & Plan Small cell lung cancer in adult, Palliative care encounter Discharge Plan Visit Data Chief Complaint: Abdominal Pain ED Provider: Debra Bullock Discharge Problem: Small cell lung cancer in adult, Palliative care encounter Patient Disposition: Home - Self-Care Condition: Fair Discharge Instructions Interventions: ED Discharge Assessment Last Done: 09/02/20 17:32
[2020-09-02 08:42] LABS: Basophils # (auto) 0.01 K/uL (0-0.2); Basophils % (auto) 0.2 %; Eosinophils # (auto) 0.04 K/uL (0-0.5); Eosinophils % (auto) 0.6 %; Hematocrit (blood only) 22.4 % (37-47); Hemoglobin 7.5 g/dL (12.0-16.0); Immature Granulocytes # (auto) 0.01 K/uL (0.00-0.02); Immature Granulocytes % (auto) 0.2 %; Lymphocytes # (auto) 0.42 K/uL (1.2-3.4); Lymphocytes % (auto) 6.5 %; Mean Corpuscular Hemoglobin 32.5 pg (25-34); Mean Corpuscular Hgb Conc 33.5 g/dL (32-36); Mean Platelet Volume 10.2 fL (7.4-10.4); Monocytes # (auto) 0.64 K/uL (0.11-0.59); Monocytes % (auto) 9.9 %; Neutrophils # (auto) 5.36 K/uL (1.4-6.5); Neutrophils % (auto) 82.6 %; Platelet Count 162 K/uL (130-400); RDW Coefficient of Variation 18.4 % (11.5-14.5); RDW Standard Deviation 63.2 fL (36.4-46.3); Red Blood Count 2.31 M/uL (4.2-5.4); White Blood Count 6.48 K/uL (4.8-10.8)
[2020-09-02 08:57] LABS: INR 1.2 (0.9-1.1); Partial Thromboplastin Ratio 1.2; Partial Thromboplastin Time 30.6 Seconds (21.0-31.0); Prothrombin Time 11.6 Seconds (9.0-12.0)
[2020-09-02 09:00] LABS: Albumin Level 1.7 gm/dl (3.4-5.0); BUN Creatinine Ratio 11.9 (10-20); Calcium 8.2 mg/dl (8.5-10.1); Creatinine Clr Calc Pharmacy 129.1 ml/min; Est GFR (African American) 123.7 ml/min; Est GFR (Non-African American) 106.7 ml/min; Potassium 2.6 mmol/L (3.5-5.1)
[2020-09-02 09:03] LABS: Albumin Globulin Ratio 0.4 (0.9-2); Bilirubin,Total 0.4 mg/dl (0.2-1); Globulin 4.4 gm/dl (2.5-4.0); Total Protein 6.1 gm/dl (6.4-8.2)
[2020-09-02 09:04] LABS: Appearance Urine Clear (Clear); Bilirubin Urine Negative (Negative); Blood Urine Negative (Negative); Color Urine Yellow; Glucose Urine UA Negative (Negative); Ketones Urine Negative (Negative); Leukocyte Esterase Urine Negative (Negative); Nitrite Urine Negative (Negative); Protein Urine Negative (Negative); Specific Gravity Urine 1.007 (1.000-1.030); Urobilinogen Urine Negative (Negative); pH Urine 7.5 (4.5-7.5)
[2020-09-02] MEDS ORDERED: OPTIRAY 320 100ml IV ONE (09:20)
[2020-09-02 09:37] LABS: RBC Morphology Unremarkable
--- NOTE | 2020-09-02 09:56 | CT Scan Report ---
CT abd pelvis IV con only CLINICAL HISTORY: Lung carcinoma. Right-sided abdominal pain. Constipation. COMPARISON STUDY: 07/26/2020 TECHNIQUE: Patient was scanned in a dynamic helical fashion during intravenous administration of 89 c c of Optiray 320 A dose lowering technique was utilized adhering to the principles of ALARA. CT DOSE: 494.92 mGy.cm FINDINGS: Lower chest: There is a [id number]-sw-nmltriri right pleural effusion and trace left pleural effusion. The re are patchy airspace opacities within the right middle and lower lobe. There is subpleural intersti tial thickening/edema. There is a small pericardial effusion. Liver: The contrast-enhanced liver is normal in size, contour, and attenuation. There is no intrahepa tic biliary ductal dilatation. The hepatic veins and portal veins are patent. Gallbladder: Distended. There is an equivocal gallbladder wall tension sign. Clinical correlation wit h regards to cholecystitis recommended. Spleen: Normal in size and attenuation. Pancreas: Pancreas appears atrophic. Adrenal glands: Unremarkable. Kidneys: There is symmetric renal cortical enhancement. The kidneys are normal in size without hydron ephrosis. Bowel: There are no transition zones indicate bowel obstruction. The appendix appears normal. There i s no acute diverticulitis. There is moderate rectal stool. There is borderline rectal wall thickening . Peritoneum: There is no intraperitoneal free air or abdominal ascites. Vasculature: The abdominal aorta is normal in course and caliber. Adenopathy: None. Pelvic viscera: The uterus appears surgically absent. Skeletal structures: No destructive osseous lesions are seen. IMPRESSION: 1. Small right pleural effusion and trace left pleural effusion. Small pericardial effusion. 2. Right middle lobe and right lower lobe patchy airspace opacities 3. Pulmonary interstitial edema/septal thickening 4. No evidence of bowel obstruction. No evidence of free air 5. Normal appendix. No evidence of acute diverticulitis 6. Moderate rectal stool with borderline rectal wall thickening, and minimal perirectal edema. Sterco ral colitis not excluded 7. Distended gallbladder demonstrating equivocal increased luminal pressure. Clinical correlation wit h regards to cholecystitis recommended. ACT 112: Negative or not required by law. Electronically signed by: Derek Vasquez M.D. 09/02/2020 9:54 AM
[2020-09-02] MEDS ORDERED: POTASSIUM CHLORIDE CRTAB 20 MEQ TABCR PO STA ×2 (10:14→18:03)
--- NOTE | 2020-09-02 11:18 | Ultrasound Report ---
ABDOMINAL ULTRASOUND, RIGHT UPPER QUADRANT HISTORY: Right upper quadrant abdominal pain.. COMPARISON: Abdomen and pelvis CT 09/02/2020. FINDINGS: Pancreas: The pancreatic tail is obscured by overlying bowel gas. The remaining portions of the pancr eas are within normal limits. Liver: Unremarkable. Gallbladder: The gallbladder remains mildly distended. No gallbladder wall thickening. No gallstones. Negative sonographic Dutton sign. CBD: 7 mm. This is slightly dilated for age. Right kidney: No hydronephrosis. IMPRESSION: 1. Mildly distended gallbladder. No gallbladder wall thickening. No gallstones. 2. Common bile duct measures 7 mm. This is slightly distended for age. Recommend correlation with LFT s or ERCP to exclude the less likely possibility of an obstructive process. ACT 112: Negative or not required by law. Electronically signed by: Avni Gongora M.D. 09/02/2020 11:17 AM
[2020-09-02] MEDS ORDERED: bisacodyL 10 MG SUPP PR STA (12:17)
--- NOTE | 2020-09-02 14:30 | Palliative Care Consultation ---
Date of Consultation September 02, 2020 Assessment & Plan (1) Palliative care encounter: Ms. Fischer is a 65 year old female who presented to the [facility] with abdominal pain. She has metastatic small cell lung cancer and positive lymphadenopathy. She has received two cycles of chemotherapy: Cisplatin and Etosposide along with radx treatment. A brain MRI was performed in 12/2019 with multiple small acute infarcts, but no mass effect. Her second cycle of chemotherapy was received between 12/29-01/01 2020. She completed radx on 02/10/2020. She was recently admitted to [facility] from 08/13-08/17. At that time, decision making capacity was questioned with regards to safety at home. Additional PMH includes: anxiety, and HTN. Palliative Medicine was consulted to assist with decision making. I talked with the patient at length and she had some intermittent confusion throughout the day. I did talk with her at length and she stated that she lives alone at home and uses a walker to ambulate, but her ex-, Gagan stops in a few times per day and does live a few blocks away. She really does want to be at home. She has had visiting nursing come to the house, and I was able to talk with Ashely Eliana with [facility] who has seen her before and stated shat she should have 24/7 care at this point and is not safe to be alone. Of course, this individual is able to make poor choices and go home; however, I am not confident in her decision making capacity at this time. I think she has too much intermittent confusion to determine the best choice for herself. I reviewed the previous admission case management note from earlier this month and was able to call her ex- Gagan at . He is pt's only support system as they have no other family in the area. He wanted to see if she would be eligible for any services at home. [facility] Aging was consulted last admission to do a home evaluation for possible waiver services; however, I am not sure on the status of this process at this time. I did talk with Marcus again and validated her goal to return home, but asked if she would be willing to be admitted for a day to really assess her overall situation, along with ensuring her symptoms were well managed, including her pain. She was willing to do this after discussion. Al is in support of this as well. Palliative will follow. (2) Hypoxia: (3) Small cell lung cancer in adult: (4) Abdominal pain: History of Present Illness Reason for Consultation: Goals of care Requesting Physician: Dr. Bullock Attending Physician: Dr. Bullock History of Present Illness Ms. Fischer is a 65 year old female who presented to the [facility] with abdominal pain. She has metastatic small cell lung cancer and positive lymphadenopathy. She has received two cycles of chemotherapy: Cisplatin and Etosposide along with radx treatment. A brain MRI was performed in 12/2019 with multiple small acute infarcts, but no mass effect. Her second cycle of chemotherapy was received between 12/29-01/01 2020. She completed radx on 02/10/2020. She was recently admitted to [facility] from 08/13-08/17. At that time, decision making capacity was questioned with regards to safety at home. Additional PMH includes: anxiety, and HTN. Palliative Medicine was consulted to assist with decision making. Please see A/P for further details. Thanks for involving palliative medicine with this individual. Allergies Allergy/AdvReac Type Severity Reaction Status Date / Time mushroom Allergy Severe anaphylaxis Verified 09/02/20 08:04 Penicillins Allergy Severe anaphylaxis, Verified 09/02/20 08:04 facial & throat swelling acetazolamide Allergy Intermediate rash, hives Verified 09/02/20 08:04 mold Allergy Unknown unknown Verified 09/02/20 08:04 reaction sumatriptan AdvReac Intermediate flushing, Verified 09/02/20 08:04 heart racing Home Medications Medication Instructions Recorded Confirmed Type albuterol sulfate 90 mcg/actuation 2 puff INH Q6H PRN #18 gm 10/23/19 09/02/20 Rx aerosol inhaler duloxetine 60 mg PO QAM 01/03/20 09/02/20 History omeprazole 20 mg PO BID 30 Days #60 cap 01/27/20 09/02/20 Rx magnesium oxide 400 mg PO BID #60 tab 02/07/20 09/02/20 Rx Anoro Ellipta 1 puffs INH QAM 05/29/20 09/02/20 History atorvastatin 40 mg PO HS 05/29/20 09/02/20 History fludrocortisone 0.1 mg PO BID 05/29/20 09/02/20 History ondansetron 8 mg PO Q8H PRN 05/29/20 09/02/20 History cyclobenzaprine 10 mg PO TID PRN 07/02/20 09/02/20 History aspirin 81 mg PO QAM #90 tab 07/05/20 09/02/20 Rx lidocaine 1 patch TRANSDERMAL HS PRN #30 ea 07/05/20 09/02/20 Rx Phospha 250 Neutral 1 tab PO BID #30 tab 07/28/20 09/02/20 Rx acetaminophen [Tylenol] 325 - 650 mg PO DIRECTED PRN 08/13/20 09/02/20 History hydroxyzine HCl 50 mg PO DAILY PRN 08/13/20 09/02/20 History midodrine 2.5 mg PO TID 08/13/20 09/02/20 History multivitamin-calcium carb 1 tab PO DAILY 08/13/20 09/02/20 History gabapentin 100 mg PO BID #0 cap 08/17/20 09/02/20 Rx oxycodone 5 mg PO Q6H PRN #0 tab 08/17/20 09/02/20 Rx bisacodyl [Gentle Laxative 10 mg MS DAILY 1 Days #12 ea 09/02/20 Rx (bisacodyl)] Patient History Medical History (Updated 09/02/20 @ 16:30 by VICKI Chu) Abdominal pain Acute hypokalemia Acute kidney injury Acute shoulder pain Now a constant ache - no prescription meds needed Altered mental status Anxiety Chronic venous insufficiency follows with vascular (Dr. Carlson) CKD (chronic kidney disease), stage III COPD with emphysema Dentalgia Hypertension Hypokalemia Hypomagnesemia Hypoxia Kidney stones LAD (lymphadenopathy), mediastinal Major depressive disorder, recurrent episode with anxious distress Daughter from OD in 2016 Migraine Nausea & vomiting Neutropenia with fever Nicotine dependence Palliative care encounter Pancytopenia Pneumonia Polysubstance overdose Hx of 2017 Pulmonary nodule "7 mm RUL nodule, stable 09/25/15 - 09/16/16; repeat 6 mos" Small cell lung cancer in adult Diagnosed 10/30/2019 - metastatic to lymph nodes Surgical History History of bronchoscopy 10/30/2019 - with EBUS History of cataract surgery 2004 - bilateral History of section 1991 History of colonoscopy unsuccessful (poor bowel prep) History of cystoscopy 2007 - with stent History of dental surgery 02/2019 - Full upper teeth extracted S/P arthroscopy of left knee S/P arthroscopy of right knee Family History Grandmother (Maternal) , Passed in 80's of metastatic cancer (unknown primary) No problems noted. Mother , Passed age 93 of natural causes No problems noted. Father , Passed age 97 of natural causes No problems noted. Brother No problems noted. Daughter , Passed age 24 from Over Dose No problems noted. 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 [employer] Feels Safe at Home: Yes Childhood Exposure to Second-Hand Smoke: No caffeine: Yes (2 cups of coffee/day ) during the past year weight has: remained stable Dental Care, Regularly: Yes Assistive Devices: Walker Review of Systems Review of Systems: [place] System Assessment Scale: Pain: 0/3 Tiredness: 1/3 Shortness of Breath: 1/3 Anxiety: 1/3 Palliative Performance Scale: 40% Physical Exam Constitutional: well developed, + ill appearing, + frail appearing and cooperative ENMT: Nose: + dry nasal mucous membranes Mouth: + dry oral mucous membranes Respiratory: normal respiratory effort Auscultation: + diminished lung sounds Cardiovascular: Rate/Rhythm: regular rate and regular rhythm Heart Sounds: normal S1 and normal S2 Extremities: normal capillary refill Gastrointestinal (Abdomen): normal bowel sounds, soft, nontender, no hepatosplenomegaly Psychiatric: Orientation: alert and oriented x 3 Insight: + limited insight Judgement: + limited judgement Results & Data ([facility]) Vital Signs (Past 12 Hours) Vital Signs Temp Pulse Resp BP Pulse Ox 05/27/21 13:30 78 20 101/65 95 09/02/20 13:00 82 18 104/66 96 09/02/20 12:30 81 19 116/74 94 09/02/20 12:00 79 20 98/64 L 95 09/02/20 11:30 80 21 101/65 98 09/02/20 10:30 83 20 116/72 95 09/02/20 10:00 84 21 105/76 94 09/02/20 09:36 83 22 102/68 99 09/02/20 09:00 106/82 94 09/02/20 08:55 95 09/02/20 08:30 114/72 95 09/02/20 08:00 96 H 25 H 142/78 H 94 09/02/20 07:55 37.4 C 94 H 23 144/80 H 95 09/02/20 07:45 97 H 18 144/80 H 96 PG Care Time/CCT Total # of Minutes Spent Total Time Spent with Patient: Total time spent is greater than 50% in coordination of care (as documented) at patient's floor/unit and/or counseling patient: 70 minutes with > 50% of that time spent assessing the patient, discussing goals of care with pt and family and collaborating with IDT Coding Level of Care Code 06291 Initial Inpt Care Lvl 3 Diagnoses Palliative care encounter Z51.5 Hypoxia R09.02 Small cell lung cancer in adult C34.90 Abdominal pain R10.9 Time Spent (min) 70
--- NOTE | 2020-09-02 16:06 | History & Physical Report ---
Date of Service September 02, 2020 Assessment & Plan (1) Small cell lung cancer in adult: -Admit to [facility] -Follows with Dr. Hebert as an outpatient, last chemotherapy was several months ago with cisplatin and etoposide, reports that she is currently on a break from chemo. No longer receiving XRT. -Patient is maintained on oxycodone 5 mg every 6 as needed for pain -Palliative consulted, likely overnight stay here will allow us to establish goals of care, patient reports she does not want to do further chemotherapy, imaging, lab draws, return to hospital and would like to look into palliative care/hospice here. (2) Abdominal pain: -Allow heart healthy diet-Aspiration precautions with history of this and multiple admissions in the past 3 months. -Antiemetics and pain control -Abdominal pain is now improved status post bowel movement, maintain bowel regimen with MiraLAX, Dulcolax, patient refused enema. Need to maintain active bowel regimen as the patient is on narcotics. (3) CKD (chronic kidney disease), stage III: -See history of such, stable (4) Orthostatic hypotension: -Continue continue midodrine and fludrocortisone, BP currently stable, 94/60 admission -Encourage p.o. intake DVT PPx: - teds, scds, CODE: DNR/DNI Dispo: From home, likely to remain in the hospital x 1-2 days History of Present Illness Primary Care Provider: Hany Glaser MD This is a 65 yo F with PMHx of SCLC s/p chemo cissplatin and etoposide, XRT, who follows with Dr. Hebert, CVA, orthostatic hypotension on fludrocortisone/midodrine Rx, mood disorder, chronic back pain secondary to thoracic compression fracture, chronic anemia, RUE DVT on Eliquis, GERD and past tobacco abuse. Recent admissions through this year are substantial and listed as below: 08/13/20-08/17/20 for encephalopathy due to pneumonia vs narcotic and neuropsychotropic meds 07/26/20- 07/28/20 for hypoxia, sepsis secondary to possible pneumonia 06/18/20 - 07/07/20 for right sided chest pain, encephalopathy thought due to HCAP/possible aspiration pna. 06/15/20 -06/16/20 for right sided chest pain, SOB 05/11/11-06/01/20 for right sided chest pain and pneumonia She presents today from home, due to having worsening abdominal pain in the RUQ. She reports that this worsened today. She has not had a bowel movement for the past 2 weeks. Patient admits to having nausea this morning where she required taking Zofran which improved it. Her appetite has been fair, drinking some fluids. She states that if she could have some food she would try to eat it. Patient had suppository here in the ER and was able to have 1 large brown formed bowel movement per nursing. She is at home by herself, has help from [facility] home health aids who check in on her when her ex- is away at work from 9-5 M-F. He does not live with her. During her time in the ER, palliative services were consulted as she has not previously been followed by palliative services, and to determine goals of care. Allergies Allergy/AdvReac Type Severity Reaction Status Date / Time mushroom Allergy Severe anaphylaxis Verified 09/02/20 08:04 Penicillins Allergy Severe anaphylaxis, Verified 09/02/20 08:04 facial & throat swelling acetazolamide Allergy Intermediate rash, hives Verified 09/02/20 08:04 mold Allergy Unknown unknown Verified 09/02/20 08:04 reaction sumatriptan AdvReac Intermediate flushing, Verified 09/02/20 08:04 heart racing Home Medications Medication Instructions Recorded Confirmed Type albuterol sulfate 90 mcg/actuation 2 puff INH Q6H PRN #18 gm 10/23/19 09/02/20 Rx aerosol inhaler duloxetine 60 mg PO QAM 01/03/20 09/02/20 History omeprazole 20 mg PO BID 30 Days #60 cap 01/27/20 09/02/20 Rx magnesium oxide 400 mg PO BID #60 tab 02/07/20 09/02/20 Rx Anoro Ellipta 1 puffs INH QAM 05/29/20 09/02/20 History atorvastatin 40 mg PO HS 05/29/20 09/02/20 History fludrocortisone 0.1 mg PO BID 05/29/20 09/02/20 History ondansetron 8 mg PO Q8H PRN 05/29/20 09/02/20 History cyclobenzaprine 10 mg PO TID PRN 07/02/20 09/02/20 History aspirin 81 mg PO QAM #90 tab 03/29/21 05/27/21 Rx lidocaine 1 patch TRANSDERMAL HS PRN #30 ea 07/05/20 09/02/20 Rx Phospha 250 Neutral 1 tab PO BID #30 tab 07/28/20 09/02/20 Rx acetaminophen [Tylenol] 325 - 650 mg PO DIRECTED PRN 08/13/20 09/02/20 Hist ory hydroxyzine HCl 50 mg PO DAILY PRN 08/13/20 09/02/20 History midodrine 2.5 mg PO TID 08/13/20 09/02/20 History multivitamin-calcium carb 1 tab PO DAILY 08/13/20 09/02/20 History gabapentin 100 mg PO BID #0 cap 08/17/20 09/02/20 Rx oxycodone 5 mg PO Q6H PRN #0 tab 08/17/20 09/02/20 Rx apixaban [Eliquis] 2.5 mg PO BID 09/02/20 09/02/20 History bisacodyl [Gentle Laxative 10 mg [place] DAILY 1 Days #12 ea 09/02/20 Rx (bisacodyl)] Past Med/Surg History Medical History (Updated 09/02/20 @ 16:41 by Anabel Saleem PA-C) Abdominal pain Acute hypokalemia Acute kidney injury Acute shoulder pain Now a constant ache - no prescription meds needed Altered mental status Anxiety Chronic venous insufficiency follows with vascular (Dr. Carlson) CKD (chronic kidney disease), stage III COPD with emphysema Dentalgia Hypertension Hypokalemia Hypomagnesemia Hypoxia Kidney stones LAD (lymphadenopathy), mediastinal Major depressive disorder, recurrent episode with anxious distress Daughter from OD in 2016 Migraine Nausea & vomiting Neutropenia with fever Nicotine dependence Palliative care encounter Pancytopenia Pneumonia Polysubstance overdose Hx of 2017 Pulmonary nodule "7 mm RUL nodule, stable 09/25/15 - 09/16/16; repeat 6 mos" Small cell lung cancer in adult Diagnosed 10/30/2019 - metastatic to lymph nodes Surgical History History of bronchoscopy 10/30/2019 - with EBUS History of cataract surgery 2004 - bilateral History of section 1991 History of colonoscopy unsuccessful (poor bowel prep) History of cystoscopy 2007 - with stent History of dental surgery 02/2019 - Full upper teeth extracted S/P arthroscopy of left knee S/P arthroscopy of right knee Family History Grandmother (Maternal) , Passed in 80's of metastatic cancer (unknown primary) No problems noted. Mother , Passed age 93 of natural causes No problems noted. Father , Passed age 97 of natural causes No problems noted. Brother No problems noted. Daughter , Passed age 24 from Over Dose No problems noted. 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 [employer] Other Information That Helps Us Care for You: No Feels Safe at Home: Yes Safety Concerns: Feels Safe At This Time Childhood Exposure to Second-Hand Smoke: No caffeine: Yes (2 cups of coffee/day ) during the past year weight has: remained stable Dental Care, Regularly: Yes Assistive Devices: Cane, Denture - Upper, Denture - Lower, Glasses and Oxygen - Continuous Review of Systems Review of Systems: Constitutional: No fever, sweats or chills, + generalized fatigue and weakness Eyes: No diplopia, no worsening or blurred vision ENT: normal hearing, no trouble swallowing Respiratory: No cough, sputum, dyspnea at rest or on exertion Cardiovascular: No chest pain, tightness or palpitations Abdomen: As per HPI, pain now improved, no vomiting, diarrhea or constipation Musculoskeletal: No joint pain, calf pain, swelling Neurologic: No weakness, numbness/tingling, or balance problems Psychiatric: No anxiety or depression Skin: No rash or itch Physical Exam Physical Exam: General: awake, alert, no apparent distress Head: Normocephalic, atraumatic ENT: PERRL, EOMI, no pharyngeal exudate, mucous membranes moist, makes pursed lip movements throughout exam Chest: Diminished at bases, + crackles, 1L via NC with O2 sats mid 90s Cardiac: Regular rate and rhythm, no murmur, no JVD, normal peripheral pulses, good capillary refill Abdominal: NABS x 4 quadrants, soft, nondistended, nontender to palpation, no rebound or guarding Extremities: + Muscle atrophy, no peripheral edema or erythema, calfs nontender to palpation Psych: Normal mood and affect Neuro: AAO x 3, strength intact bilaterally and rated 5/5, no motor deficits, speech is clear, no peripheral sensory deficits Results & Data Results & Data ([facility]) Vital Signs (Past 12 Hours) Vital Signs Temp Pulse Resp BP Pulse Ox 09/02/20 13:30 78 20 101/65 95 09/02/20 13:00 82 18 104/66 96 09/02/20 12:30 81 19 116/74 94 09/02/20 12:00 79 20 98/64 L 95 09/02/20 11:30 80 21 101/65 98 09/02/20 10:30 83 20 116/72 95 09/02/20 10:00 84 21 105/76 94 09/02/20 09:36 83 22 102/68 99 09/02/20 09:00 106/82 94 09/02/20 08:55 95 09/02/20 08:30 114/72 95 09/02/20 08:00 96 H 25 H 142/78 H 94 09/02/20 07:55 37.4 C 94 H 23 144/80 H 95 09/02/20 07:45 97 H 18 144/80 H 96 Diagnostic Findings Abdomen/Pelvis CT 09/02/20 08:04 CT abd pelvis IV con only CLINICAL HISTORY: Lung carcinoma. Right-sided abdominal pain. Constipation. COMPARISON STUDY: 07/26/2020 TECHNIQUE: Patient was scanned in a dynamic helical fashion during intravenous administration of 89 cc of Optiray 320 A dose lowering technique was utilized adhering to the principles of ALARA. CT DOSE: 494.92 mGy.cm FINDINGS: Lower chest: There is a [id number] right pleural effusion and trace left pleural effusion. There are patchy airspace opacities within the right middle and lower lobe. There is subpleural interstitial thickening/edema. There is a small pericardial effusion. Liver: The contrast-enhanced liver is normal in size, contour, and attenuation. There is no intrahepatic biliary ductal dilatation. The hepatic veins and portal veins are patent. Gallbladder: Distended. There is an equivocal gallbladder wall tension sign. Clinical correlation with regards to cholecystitis recommended. Spleen: Normal in size and attenuation. Pancreas: Pancreas appears atrophic. Adrenal glands: Unremarkable. Kidneys: There is symmetric renal cortical enhancement. The kidneys are normal in size without hydronephrosis. Bowel: There are no transition zones indicate bowel obstruction. The appendix appears normal. There is no acute diverticulitis. There is moderate rectal stool. There is borderline rectal wall thickening. Peritoneum: There is no intraperitoneal free air or abdominal ascites. Vasculature: The abdominal aorta is normal in course and caliber. Adenopathy: None. Pelvic viscera: The uterus appears surgically absent. Skeletal structures: No destructive osseous lesions are seen. IMPRESSION: 1. Small right pleural effusion and trace left pleural effusion. Small pericardial effusion. 2. Right middle lobe and right lower lobe patchy airspace opacities 3. Pulmonary interstitial edema/septal thickening 4. No evidence of bowel obstruction. No evidence of free air 5. Normal appendix. No evidence of acute diverticulitis 6. Moderate rectal stool with borderline rectal wall thickening, and minimal perirectal edema. Stercoral colitis not excluded 7. Distended gallbladder demonstrating equivocal increased luminal pressure. Clinical correlation with regards to cholecystitis recommended. ACT 112: Negative or not required by law. Electronically signed by: Derek Vasquez M.D. 09/02/2020 9:54 AM Gallbladder Ultrasound 09/02/20 10:15 ABDOMINAL ULTRASOUND, RIGHT UPPER QUADRANT HISTORY: Right upper quadrant abdominal pain.. COMPARISON: Abdomen and pelvis CT 09/02/2020. FINDINGS: Pancreas: The pancreatic tail is obscured by overlying bowel gas. The remaining portions of the pancreas are within normal limits. Liver: Unremarkable. Gallbladder: The gallbladder remains mildly distended. No gallbladder wall thickening. No gallstones. Negative sonographic Dutton sign. CBD: 7 mm. This is slightly dilated for age. Right kidney: No hydronephrosis. IMPRESSION: 1. Mildly distended gallbladder. No gallbladder wall thickening. No gallstones. 2. Common bile duct measures 7 mm. This is slightly distended for age. Recommend correlation with LFTs or ERCP to exclude the less likely possibility of an obstructive process. ACT 112: Negative or not required by law. Electronically signed by: Avni Gongora M.D. 09/02/2020 11:17 AM Code Status & VTE Plan Code Status DNR/DNI-discussed with the patient at bedside Supervising Physician Co-Signing Physician Notes Patient is a 65-year-old female with history of CVA, small cell lung cancer, orthostatic hypotension, mood disorder and other medical problems presents with history of worsening abdominal pain, predominantly right upper quadrant associated with constipation since 2 weeks duration. Patient admits to having nausea but denies any vomiting. She had multiple admissions and was recently hospitalized for pneumonia. CT abdomen showed small right pleural effusion, trace left pleural effusion, small pericardial effusion, airspace opacities, moderate rectal stool with findings suggestive of stercoral colitis, distended gallbladder cannot rule out cholecystitis. Gallbladder ultrasound showed mildly distended gallbladder, CBD dilated 7 mm. LFTs were within normal range. Patient had a large bowel movement while in ED which resolved her symptoms. Patient also noted to have anemia with hemoglobin 7.5, hypokalemia 2.6, hypomagnesemia 1.7. On exam patient is chronic ill-appearing, no apparent distress, normocephalic atraumatic, lungs-coarse breath sounds, no accessory muscle use, bilateral air entry, S1-S2, no murmur, bilateral trace pedal edema, abdomen soft, nontender, normal bowel sounds, alert, awake, oriented, grossly no focal deficits. Patient is admitted for management of abdominal pain likely secondary to constipation, hypokalemia, hypomagnesemia. Patient had multiple admissions and currently not interested in receiving chemotherapy. She states completing radiation therapy. Palliative care consulted to address goals of care. Continue bowel regimen. Will consult GI for CBD dilation. Palliative care on board. Will replace electrolytes and monitor. I personally reviewed the record. Patient is interviewed and examined at bedside. Patient's care is coordinated with Anabel Saleem PA-C. Please refer to the documentation above for details of patient's presentation and for discussion of other issues.
[2020-09-02] MEDS ORDERED: PROMETHAZINE HCL 12.5 MG in SODIUM CHLORIDE 0.9% 50 ML IV PRN (18:03)
[2020-09-02] MEDS ORDERED: LIDOCAINE 5% 1 PATCH TD PRN (18:03)
[2020-09-02] MEDS ORDERED: ALBUTEROL HFA 8 GM INHALER INH PRN (18:03)
[2020-09-02] MEDS ORDERED: ACETAMINOPHEN 325 MG TAB PO PRN (18:03)
[2020-09-02] MEDS ORDERED: hydrOXYzine HCl 25 MG TAB PO PRN (18:03)
[2020-09-02] MEDS ORDERED: ONDANSETRON INJ 2 MG/ML 2 ML VIAL IV PRN (18:03)
[2020-09-02] MEDS ORDERED: ONDANSETRON 8MG OD TAB PO PRN (18:03)
[2020-09-02] MEDS ORDERED: CYCLOBENZAPRINE HCL 10 MG TAB PO PRN (18:20)
[2020-09-02] MEDS: oxyCODONE HCL IR 5 MG TAB (IMMEDIATE RELEASE) PO PRN (18:42)
[2020-09-02] MEDS ORDERED: POTASSIUM CHLORIDE 40 MEQ in SODIUM CHLORIDE 0.9% 1000ML 1,000 ML IV SCH (19:00)
[2020-09-02] MEDS ORDERED: HEPARIN 100 UNIT/ML 5ML FLUSH FLUSH PRN (19:21)
[2020-09-02] MEDS: POTASSIUM CHLORIDE / WTR 10 MEQ/100 ML PLCT IV SCH ×2 (19:38→20:27)
[2020-09-02] MEDS: MAGNESIUM OXIDE 400 MG TAB PO SCH (20:07)
[2020-09-02] MEDS: FLUDROCORTISONE ACETATE 0.1 MG TAB PO SCH (20:09)
[2020-09-02] MEDS: GABAPENTIN 100 MG CAP PO SCH (20:09)
[2020-09-02] MEDS: MIDODRINE HCL 2.5 MG TAB PO SCH (20:10)
[2020-09-02] MEDS: PANTOprazole 40 MG TAB PO SCH (20:11)
[2020-09-02] MEDS: POT PHOSPHATE MONOBASIC W/ SOD TAB PO SCH (20:11)
[2020-09-02] MEDS ORDERED: POLYETHYLENE (MIRALAX) 17 GM PACK PO PRN (20:53)
[2020-09-02] MEDS ORDERED: DOCUSATE SODIUM 100 MG CAP PO PRN (20:53)
[2020-09-02] MEDS ORDERED: ATORVASTATIN 40 MG TAB PO SCH (21:00)
[2020-09-02] MEDS ORDERED: MAGNESIUM SULFATE / D5W 1 GM/100 ML BAG IV ONE (21:00)
[2020-09-02] MEDS ORDERED: POTASSIUM CHLORIDE 40 MEQ in SODIUM CHLORIDE 0.9% 1000ML 1,000 ML IV ONE (21:45)
[2020-09-02 23:23] LABS: BUN Creatinine Ratio 11.5 (10-20); Calcium 7.7 mg/dl (8.5-10.1); Creatinine Clr Calc Pharmacy 122.8 ml/min; Est GFR (African American) 121.9 ml/min; Est GFR (Non-African American) 105.1 ml/min; Potassium 3.7 mmol/L (3.5-5.1)
[2020-09-02] MEDS: APIXABAN 2.5 MG TAB PO SCH (23:38)
[2020-09-03 00:16] LABS: Hematocrit (blood only) 20.1 % (37-47); Hemoglobin 6.7 g/dL (12.0-16.0)
[2020-09-03] MEDS: oxyCODONE HCL IR 5 MG TAB (IMMEDIATE RELEASE) PO PRN ×2 (00:59→07:26)
[2020-09-03] MEDS ORDERED: SODIUM CHLORIDE 0.9% 250 ML IV PRN (01:44)
[2020-09-03] MEDS: MIDODRINE HCL 2.5 MG TAB PO SCH ×2 (07:27→11:59)
[2020-09-03 07:41] LABS: Hematocrit (blood only) 25.8 % (37-47); Hemoglobin 8.4 g/dL (12.0-16.0); Mean Corpuscular Hemoglobin 32.3 pg (25-34); Mean Corpuscular Hgb Conc 32.6 g/dL (32-36); Mean Corpuscular Volume 99.2 fL (80-100); Mean Platelet Volume 10.5 fL (7.4-10.4); Platelet Count 145 K/uL (130-400); RDW Standard Deviation 66.8 fL (36.4-46.3); White Blood Count 4.06 K/uL (4.8-10.8)
[2020-09-03 08:22] LABS: Albumin Level 1.7 gm/dl (3.4-5.0); BUN Creatinine Ratio 11.8 (10-20); Bilirubin Direct 0.2 mg/dl (0-0.2); Calcium 8.2 mg/dl (8.5-10.1); Creatinine Clr Calc Pharmacy 120.1 ml/min; Est GFR (Non-African American) 104.4 ml/min; Magnesium 1.9 mg/dl (1.8-2.4); Potassium 3.8 mmol/L (3.5-5.1)
[2020-09-03 08:26] LABS: Albumin Globulin Ratio 0.4 (0.9-2); Bilirubin,Total 0.7 mg/dl (0.2-1); Phosphorus 2.3 mg/dl (2.5-4.9); Total Protein 5.7 gm/dl (6.4-8.2)
[2020-09-03] MEDS: MAGNESIUM OXIDE 400 MG TAB PO SCH (08:43)
[2020-09-03] MEDS: FLUDROCORTISONE ACETATE 0.1 MG TAB PO SCH (08:43)
[2020-09-03] MEDS: PANTOprazole 40 MG TAB PO SCH (08:44)
[2020-09-03] MEDS: GABAPENTIN 100 MG CAP PO SCH (08:44)
[2020-09-03] MEDS: POT PHOSPHATE MONOBASIC W/ SOD TAB PO SCH (08:44)
[2020-09-03] MEDS: APIXABAN 2.5 MG TAB PO SCH (08:45)
[2020-09-03] MEDS ORDERED: ASPIRIN 81 MG ECTAB PO SCH (09:00)
[2020-09-03] MEDS ORDERED: UMECLIDINIUM/VILANTEROL 62.5/25MCG 7 PUFFS/INHALER INH SCH (09:00)
[2020-09-03] MEDS ORDERED: CEROVITE ADV FORMULA TAB PO SCH (09:00)
[2020-09-03] MEDS ORDERED: DULoxetine HCL 60 MG CAP PO SCH (09:00)
--- NOTE | 2020-09-03 09:40 | Hospitalist Progress Note ---
Date of Service September 03, 2020 Assessment & Plan (1) Small cell lung cancer in adult: -Admit to [facility] -Follows with Dr. Hebert as an outpatient, last chemotherapy was several months ago with cisplatin and etoposide, reports that she is currently on a break from chemo. No longer receiving XRT. -Patient is maintained on oxycodone 5 mg every 6 as needed for pain -Palliative consulted, likely overnight stay here will allow us to establish goals of care, patient reports she does not want to do further chemotherapy, imaging, lab draws, return to hospital and would like to look into palliative care/hospice here. (2) Abdominal pain: -Reg diet-Aspiration precautions with history of this and multiple admissions in the past 3 months. -Antiemetics and pain control -Abdominal pain is now improved status post bowel movement, maintain bowel regimen with MiraLAX, Dulcolax, patient refused enema. Need to maintain active bowel regimen as the patient is on narcotics. (3) CKD (chronic kidney disease), stage III: -See history of such, stable (4) Orthostatic hypotension: -Continue continue midodrine and fludrocortisone, BP currently stable, 94/60 admission -Encourage p.o. intake DVT PPx: - teds, scds, CODE: DNR/DNI Dispo: From home, likely to remain in the hospital x 1-2 days Labs checked ROS-No Headache, No Visual Changes, No Nausea, No Vomiting, No Fever, No Chills, No Neck Pain or Stiffness, No Chest Pain, No Palpitations, No SOB, No ALBRIGHT, No Cough, No Sputum, No Wheezing, +Abdominal Pain, No Diarrhea, No Hematemesis, No Hemoptysis, No Unexpected Weight Loss, No Flank pain, No Melena, No Hematochezia, No Frequency, No Urgency, No Burning, No Hematuria, No Rashes, No Diaphoresis. Appetite is Normal Physical Exam Gen-AAO x 3, NAD, Afebrile Head-NCAT, EOMI, PERRLA, Anicteric Sclera, No Posterior Pharyngeal Erythema Neck-Supple, No JVD, No Thyromegaly, No Masses, No LAD, No Bruits Lungs-Clear to Auscultation Bilaterally, No Rales, No Rhonchi, No Wheezing, No Crepitus Chest-No S4, +S1, +S2, No S3, No Murmurs, No Rubs, No Gallops, No Ectopy Abdomen-Soft, Bowel Sounds Present, Non Tender, Non Distended, No Hepatomegaly, No Splenomegaly, No Palpable Masses, No Rebound, No Rigidity, No Guarding Musculoskeletal-Full Range of Motion Bilaterally, No CVAT Extremities-No Cyanosis, No Clubbing, No Edema Nuero-Cranial Nerves II-XII grossly intact, Motor WNL, DTRs WNL, Strength WNL, Non Focal Psych-Normal Mood Admission and Anticipated Discharge Date Admission Date: September 02, 2020 Results & Data Results & Data ([facility]) Vital Signs (Past 12 Hours) Vital Signs Temp Pulse Pulse Resp BP BP Pulse Ox 09/03/20 08:02 36.7 C 81 18 113/78 95 09/03/20 04:55 36.7 C 74 17 129/82 98 09/03/20 02:58 36.8 C 82 16 110/76 95 09/03/20 02:55 36.8 C 79 16 97/63 L 93 09/03/20 02:40 37.1 C 76 16 110/72 94 09/03/20 02:22 36.8 C 76 16 91/60 L 95 09/02/20 22:24 36.7 C 81 18 93/60 L 92
--- NOTE | 2020-09-03 12:39 | Palliative Care Progress Note ---
Date of Service September 03, 2020 Assessment & Plan (1) Abdominal pain: Controlled with oxycodone prn (2) Palliative care encounter: I talked with Marcus about goals of care. She has a ferret at home that she is very attached to and very much wants to go home. She has been followed by [facility] palliative care but has said that she does not want additional cancer treatment. There was some concern about whether she was safe at home. I asked her about that. "They think I'm not but I am". We discussed available support. Her exhusbandGagan is helping her out with groceries and checks on her but she lives alone. She tells me that she is able to do her own self care and get meals. She does have some problems with housekeeping. We discussed what her plan would be if she had problems at home. Her initial response was to call 911. However, she tells me that she would prefer not to return to the hospital which would likely occur if she called 911. If she had hospice support at home, she would be able to call hospice and not return to the hospital. Based on my assessment, she is capable of understanding her situation and the implications of her decisions. (3) Small cell lung cancer in adult: Admission and Anticipated Discharge Date Admission Date: September 02, 2020 Subjective Sleeping but easily arousable. Had oxycodone earlier for right sided abdominal pain. Review of Systems Review of Systems: [place] Symptom Assessment Scale Pain 1/3 Dyspnea 0/3 Anxiety 0/3 Nausea 0/3 Drowsiness 1/3 Palliative Performance Score 50% Physical Exam Constitutional: no acute distress Respiratory: normal respiratory effort; no labored breathing Neurologic: awake; not confused lip smacking Results & Data ([facility]) Vital Signs (Past 12 Hours) Vital Signs Temp Pulse Pulse Resp BP BP Pulse Ox 09/03/20 11:41 98.1 F 81 16 108/69 95 09/03/20 08:02 98.1 F 81 18 113/78 95 09/03/20 04:55 98.1 F 74 17 129/82 98 09/03/20 02:58 98.2 F 82 16 110/76 95 09/03/20 02:55 98.2 F 79 16 97/63 L 93 09/03/20 02:40 98.8 F 76 16 110/72 94 09/03/20 02:22 98.2 F 76 16 91/60 L 95 PG Care Time/CCT Total # of Minutes Spent Total Time Spent with Patient: Total time spent is greater than 50% in coordination of care (as documented) at patient's floor/unit and/or counseling patient: total time spent 40 minutes with more than 50% of time spent on goals of care, symptom management Coding Level of Care Code 39520 Subseq Hosp Care Lvl 3 Diagnoses Abdominal pain R10.9 Palliative care encounter Z51.5 Small cell lung cancer in adult C34.90
--- NOTE | 2020-09-03 12:51 | Discharge Summary ---
Date of Service September 03, 2020 Admission HPI Per Admitting Provider This is a 65 yo F with PMHx of SCLC s/p chemo cissplatin and etoposide, XRT, who follows with Dr. Hebert, CVA, orthostatic hypotension on fludrocortisone/midodrine Rx, mood disorder, chronic back pain secondary to thoracic compression fracture, chronic anemia, RUE DVT on Eliquis, GERD and past tobacco abuse. Recent admissions through this year are substantial and listed as below: 08/13/20-08/17/20 for encephalopathy due to pneumonia vs narcotic and neuropsychotropic meds 07/26/20- 07/28/20 for hypoxia, sepsis secondary to possible pneumonia 06/18/20 - 07/07/20 for right sided chest pain, encephalopathy thought due to HCAP/possible aspiration pna. 06/15/20 -06/16/20 for right sided chest pain, SOB 05/11/11-06/01/20 for right sided chest pain and pneumonia She presents today from home, due to having worsening abdominal pain in the RUQ. She reports that this worsened today. She has not had a bowel movement for the past 2 weeks. Patient admits to having nausea this morning where she required taking Zofran which improved it. Her appetite has been fair, drinking some fluids. She states that if she could have some food she would try to eat it. Patient had suppository here in the ER and was able to have 1 large brown formed bowel movement per nursing. She is at home by herself, has help from [facility] home health aids who check in on her when her ex- is away at work from 9-5 M-F. He does not live with her. During her time in the ER, palliative services were consulted as she has not previously been followed by palliative services, and to determine goals of care. Admission Exam Per Admitting Provider General: awake, alert, no apparent distress Head: Normocephalic, atraumatic ENT: PERRL, EOMI, no pharyngeal exudate, mucous membranes moist, makes pursed lip movements throughout exam Chest: Diminished at bases, + crackles, 1L via NC with O2 sats mid 90s Cardiac: Regular rate and rhythm, no murmur, no JVD, normal peripheral pulses, good capillary refill Abdominal: NABS x 4 quadrants, soft, nondistended, nontender to palpation, no rebound or guarding Extremities: + Muscle atrophy, no peripheral edema or erythema, calfs nontender to palpation Psych: Normal mood and affect Neuro: AAO x 3, strength intact bilaterally and rated 5/5, no motor deficits, speech is clear, no peripheral sensory deficits Principal Diagnosis (1) Small cell lung cancer in adult: (2) Abdominal pain: (3) CKD (chronic kidney disease), stage III: (4) Orthostatic hypotension: Discharge Exam See below Discharge Data Allergies Allergy/AdvReac Type Severity Reaction Status Date / Time mushroom Allergy Severe anaphylaxis Verified 09/02/20 08:04 Penicillins Allergy Severe anaphylaxis, Verified 09/02/20 08:04 facial & throat swelling acetazolamide Allergy Intermediate rash, hives Verified 09/02/20 08:04 mold Allergy Unknown unknown Verified 09/02/20 08:04 reaction sumatriptan AdvReac Intermediate flushing, Verified 09/02/20 08:04 heart racing Consultations 09/02/20 13:09 Consult Palliative Care Stat 09/02/20 15:06 ED Decision to Admit Stat 09/02/20 18:03 Consult Gastroenterology Routine Current Diagnoses Malignant neoplasm of unspecified part of unspecified bronchus or lung (09/02/20) Orthostatic hypotension (09/02/20) Chronic kidney disease, stage 3 (moderate) (09/02/20) Unspecified abdominal pain (09/02/20) Encounter for palliative care (09/02/20) Allergies mushroom Allergy (Severe, Verified 09/02/20 08:04) anaphylaxis Penicillins Allergy (Severe, Verified 09/02/20 08:04) anaphylaxis, facial & throat swelling acetazolamide Allergy (Intermediate, Verified 09/02/20 08:04) rash, hives mold Allergy (Unknown, Verified 09/02/20 08:04) unknown reaction sumatriptan Adverse Reaction (Intermediate, Verified 09/02/20 08:04) flushing, heart racing Height/Weight/Isolation Height 5 ft 8 in Weight 62.4 kg Chemistry 09/02/20 09/02/20 09/03/20 08:27 22:42 07:15 Sodium 139 140 142 Potassium 2.6 L 3.7 D 3.8 Chloride 103 106 109 H Carbon Dioxide 31 31 29 Anion Gap 5.0 4.0 4.0 BUN 5 L 5 L 5 L Creatinine 0.43 L 0.45 L 0.46 L Glucose 94 84 77 Urinalysis 09/02/20 08:45 Urine Color Yellow Urine Appearance Clear Urine pH 7.5 Ur Specific [place] 1.007 Urine Protein Negative Urine Glucose (UA) Negative Urine Ketones Negative Urine Blood Negative Urine Nitrite Negative Urine Bilirubin Negative Ordered Studies 09/02/20 08:04 CT abd pelvis IV con only Stat 09/02/20 10:15 US gallbladder Stat Hospital Course (1) Small cell lung cancer in adult: -DC home, doesn't want anything done -Follows with Dr. Hebert as an outpatient, last chemotherapy was several months ago with cisplatin and etoposide, reports that she is currently on a break from chemo. No longer receiving XRT. -Patient is maintained on oxycodone 5 mg every 6 as needed for pain -Palliative consulted, would like to look into palliative care/hospice here. (2) Abdominal pain: -Reg diet-Aspiration precautions with history of this and multiple admissions in the past 3 months. -Antiemetics and pain control -Abdominal pain is now improved status post bowel movement, maintain bowel regimen with MiraLAX, Dulcolax, patient refused enema. Need to maintain active bowel regimen as the patient is on narcotics. (3) CKD (chronic kidney disease), stage III: -See history of such, stable (4) Orthostatic hypotension: -Continue continue midodrine and fludrocortisone, BP currently stable, 94/60 admission -Encourage p.o. intake CODE: DNR/DNI Dispo: From home, dc home, Condition code 44 Labs checked ROS-No Headache, No Visual Changes, No Nausea, No Vomiting, No Fever, No Chills, No Neck Pain or Stiffness, No Chest Pain, No Palpitations, No SOB, No ALBRIGHT, No Cough, No Sputum, No Wheezing, +Abdominal Pain, No Diarrhea, No Hematemesis, No Hemoptysis, No Unexpected Weight Loss, No Flank pain, No Melena, No Hematochezia, No Frequency, No Urgency, No Burning, No Hematuria, No Rashes, No Diaphoresis. Appetite is Normal Physical Exam Gen-AAO x 3, NAD, Afebrile Head-NCAT, EOMI, PERRLA, Anicteric Sclera, No Posterior Pharyngeal Erythema Neck-Supple, No JVD, No Thyromegaly, No Masses, No LAD, No Bruits Lungs-Clear to Auscultation Bilaterally, No Rales, No Rhonchi, No Wheezing, No Crepitus Chest-No S4, +S1, +S2, No S3, No Murmurs, No Rubs, No Gallops, No Ectopy Abdomen-Soft, Bowel Sounds Present, Non Tender, Non Distended, No Hepatomegaly, No Splenomegaly, No Palpable Masses, No Rebound, No Rigidity, No Guarding Musculoskeletal-Full Range of Motion Bilaterally, No CVAT Extremities-No Cyanosis, No Clubbing, No Edema Nuero-Cranial Nerves II-XII grossly intact, Motor WNL, DTRs WNL, Strength WNL, Non Focal Psych-Normal Mood Total Time Total Time Spent Total Time Spent (In Minutes): 45 mins Total Time Includes: Examination of the Patient, Discharge Planning, Medication Reconciliation and Communication With Other Providers Discharge Plan Discharge Items Patient Disposition: Home - Self-Care Reason For Visit: ABDOMINAL PAIN, SCLC Discharge Diagnosis: (1) Small cell lung cancer in adult: (2) Abdominal pain: (3) CKD (chronic kidney disease), stage III: (4) Orthostatic hypotension: Condition on Discharge: Fair Health Concerns: Pain control Activity: Resume your previous activity Lifting: None Bathing: No limitations Exercise/Sports: None Driving/Machine Use: No limitations Non-emergency contact: Primary Care Provider and Oncologist Call non-emergency contact if: you have any medication questions, your symptoms worsen and your pain is worsening Follow-up/Referrals: Sharon Castaneda MD [Physician] - (ADAM) Hany Glaser MD [Primary Care Provider] - (Date & Time 09/10/2020 10:00 AM Provider Hany Glaser MD Department [facility] ) José Luis Weldon MD [Hospitalist] - (Date & Time 09/08/2020 10:45 AM Provider Anibal Hebert MD Department Hematology/Oncology [facility] ) Diet: Regular Diet Texture: Easy to Chew Addtl Attending Provider Instructions: Plenty fluids Pending Studies at Discharge: No Stand-Alone Forms: My [place], Smoking Cessation Medications and DC Order Prescriptions: New bisacodyl [Gentle Laxative (bisacodyl)] 10 mg suppository 10 mg HI DAILY 1 Days Qty: 12 RF: 0 docusate sodium 100 mg Capsule 100 mg PO BID Qty: 60 RF: 0 polyethylene glycol 3350 [ClearLax] 17 gram/dose powder 17 g PO DAILY Qty: 238 RF: 0 Continued albuterol sulfate 90 mcg/actuation HFA aerosol inhaler 2 puff INH Q6H PRN (Reason: Shortness Of Breath Or Wheezing) Qty: 18 RF: 3 duloxetine 60 mg capsule,delayed release(DR/EC) 60 mg PO QAM RF: 0 omeprazole 20 mg capsule,delayed release(DR/EC) 20 mg PO BID 30 Days Qty: 60 RF: 3 magnesium oxide 400 mg (241.3 mg magnesium) Tablet 400 mg PO BID Qty: 60 RF: 0 atorvastatin 40 mg tablet 40 mg PO HS RF: 0 ondansetron 8 mg tablet,disintegrating 8 mg PO Q8H PRN (Reason: Nausea And Vomiting) RF: 0 fludrocortisone 0.1 mg tablet 0.1 mg PO BID RF: 0 Anoro Ellipta 62.5-25 mcg/actuation blister with device 1 puffs INH QAM RF: 0 Phospha 250 Neutral 250 mg tablet 1 tab PO BID Qty: 30 RF: 0 acetaminophen [Tylenol] 325 mg Tablet 325 - 650 mg PO DIRECTED PRN (Reason: FEVER/PAIN) RF: 0 hydroxyzine HCl 50 mg Tablet 50 mg PO DAILY PRN (Reason: Anxiety) RF: 0 multivitamin-calcium carb Tablet,Chewable 1 tab PO DAILY RF: 0 midodrine 2.5 mg tablet 2.5 mg PO TID RF: 0 gabapentin 100 mg capsule 100 mg PO BID Qty: 0 RF: 0 oxycodone 10 mg Tablet 5 mg PO Q6H PRN (Reason: Pain, Moderate) Qty: 0 RF: 0 Eliquis 2.5 mg tablet 2.5 mg PO BID RF: 0 cyclobenzaprine 10 mg tablet 10 mg PO TID PRN (Reason: Muscle Spasm) RF: 0 aspirin 81 mg Tablet,Delayed Release (Dr/Ec) 81 mg PO QAM Qty: 90 RF: 0 lidocaine 5 % Adhesive Patch,Medicated 1 patch transdermal HS PRN (Reason: Pain) Qty: 30 RF: 0 Discharge Orders: Discharge Order (Routine); Ordered 09/03/20 Ordered By: Jack Alvarez Admission Data Admit Date/Time: 09/02/20 16:28 Attending Provider: Jack Alvarez Admit Provider: Isra Link Primary Care Provider: Hany Glaser Other Providers: Sharon Castaneda ; Isra Link ; Stephanie Yung
--- NOTE | 2020-09-03 13:24 | Communication Note ---
Date of Service: September 03, 2020 Code 44 attestation: This is a 65-year-old female with significant past medical history of small cell lung cancer status post chem chemo with cisplatin and etoposide, radiation treatment was admitted yesterday with increasing abdominal pain. The chart was reviewed. She has had appropriate evaluation by the palliative care team and by the hospitalist as attending. She will be discharged home with home health today. By [facility] guidelines, a determination that the admission or continued stay is not medically necessary has been made by a member of the UR committee and a physician for this hospital stay, therefore a Code 44 will be completed and the Inpatient admission will be changed to outpatient. Dr Sabrina Love Member UR Committee
== END 2020-09-03 16:20 | disposition home or self-care (01) ==
LOC: ED 07:39 → SUATTDRO 16:28 → INTOOBSV 16:28 → 3N 16:28

== ENCOUNTER 2020-09-09 21:12 | Inpatient (IN) ==
--- NOTE | 2020-09-09 22:04 | Emergency Department Note ---
Impression & Plan SOB (shortness of breath), Pleural effusion, Lung cancer, Hypokalemia ED Provider Note NAME: BREN BELTRAN AGE: 65 SEX: F : 1955 ARRIVES VIA: Ambulance INFORMANT: [Patient] ED PROVIDER(S): [Cruz Weiss MD] CHIEF COMPLAINT: Short of breath HISTORY OF PRESENT ILLNESS: The patient is a 65-year-old female with lung cancer. She was in the hospital last month, around a week ago. She presents today for shortness of breath and cough that started yesterday. She is typically on 2 L of oxygen but had to have this amount increased to 6 L to feel better. Patient denies any fever. She has noted some vomiting. No diarrhea. The patient complains of some moderate left- sided chest pain. She has a bruised left breast from a fall around a week ago. She did not strike her head. She is on Eliquis. The patient is a DNR. She does not want intubated, she does not want CPR. The patient is living alone. She is not sure why she is more short of breath. She does have a history of a pleural effusion. She has finished all her chemo and radiation. REVIEW OF SYSTEMS: See HPI for pertinent positives and negatives. A total of ten systems were reviewed and were otherwise negative. PMHx/PSHx: See Below SOCIAL HISTORY: See Below. PHYSICAL EXAM: GENERAL: Patient is in mild respiratory distress. HEENT: No acute trauma, normocephalic atraumatic, mucous membranes dry, no nasal congestion, no scleral icterus. NECK: No stridor, no adenopathy, no meningismus, trachea is midline. LUNGS: There is minimal breath sounds on the right. The left lung seems clear. She is in some mild respiratory distress. There is an increased respiratory rate. HEART: Without murmurs gallops or rubs, regular rate and rhythm. ABDOMEN: Soft, nontender, bowel sounds positive, no hernias, no peritonitis. EXTREMITIES: No cyanosis, moderate bilateral pedal edema, full range of motion of all the joints without pain or difficulty, no signs for acute trauma. NEUROLOGIC: Oriented x 3, no acute motor or sensory deficits, no focal weakness. SKIN: No rash, no jaundice, no diaphoresis. DIFFERENTIAL DIAGNOSIS: Reactive airway disease, pneumonia, pneumothorax, COPD, CHF, infection, pleural effusion, worsening malignancy, COVID-19, cardiac ischemia, pulmonary embolism, bronchitis, musculoskeletal, gastrointestinal, as well as other pathologies. EMERGENCY DEPARTMENT COURSE/PROCEDURES: ECG: Indication was shortness of breath. The ECG shows a normal sinus rhythm with some baseline artifact. The rate is 89. There is some nonspecific ST change. There is no ST elevation, no PVCs. The QTc is 489. Continuous Cardiac Monitoring: An order was placed for continuous cardiac monitoring. The monitor shows a rate of 98 with normal sinus rhythm. Critical Care Note: I have personally spent 43 minutes of critical care time in the direct management of this patient. This includes bedside care, interpretation of diagnostic studies, and testing, discussion with consultants, patient, and family members, and other required patient management activities. This 43 minutes is in excess of all separately billable procedures. MEDICAL DECISION MAKING: There is no leukocytosis. The patient is anemic but this is baseline looking back at previous testing. Platelet count slightly low at 126. No concerning coagulopathy. No kidney failure. Potassium was low at 2.5. No worrisome liver enzyme elevation. ECG shows a sinus rhythm, there was no acute ischemic change. Cardiac enzyme testing x1 was not consistent with acute cardiac injury. Covid testing returned negative. Chest film does show a right pleural effusion and in creased consolidation to the right lung. No pneumothorax. On exam, the patient appeared dyspneic. She was saturating well with increased nasal cannula O2. The patient was placed on BiPAP however, she did not tolerate this. The BiPAP was discontinued and she was placed back on nasal cannula O2. She was given oxycodone 10 mg orally for pain, she takes this medication on a regular basis. She was given IV potassium for her lower potassium value. The patient has had increasing shortness of breath. She has worsening findings on chest x-ray. She is hypokalemic. She has known lung cancer and is a DNR. She is now in need of increased oxygenation via nasal cannula to maintain her saturation. She is in no condition to be discharged home. She does live alone. I spoke to the patient and case management. The on-call hospitalist has been consulted. Past Med/Surg History Medical History Abdominal pain Acute hypokalemia Acute kidney injury Acute shoulder pain Now a constant ache - no prescription meds needed Altered mental status Anxiety Chronic venous insufficiency follows with vascular (Dr. Carlson) CKD (chronic kidney disease), stage III COPD with emphysema Dentalgia Hypertension Hypokalemia Hypomagnesemia Hypoxia Kidney stones LAD (lymphadenopathy), mediastinal Major depressive disorder, recurrent episode with anxious distress Daughter from OD in 2016 Migraine Nausea & vomiting Neutropenia with fever Nicotine dependence Palliative care encounter Pancytopenia Pneumonia Polysubstance overdose Hx of 2017 Pulmonary nodule "7 mm RUL nodule, stable 09/25/15 - 09/16/16; repeat 6 mos" Small cell lung cancer in adult Diagnosed 10/30/2019 - metastatic to lymph nodes Surgical History History of bronchoscopy 10/30/2019 - with EBUS History of cataract surgery 2004 - bilateral History of section 1991 History of colonoscopy unsuccessful (poor bowel prep) History of cystoscopy 2007 - with stent History of dental surgery 02/2019 - Full upper teeth extracted S/P arthroscopy of left knee S/P arthroscopy of right knee Family History Grandmother (Maternal) , Passed in 80's of metastatic cancer (unknown primary) No problems noted. Mother , Passed age 93 of natural causes No problems noted. Father , Passed age 97 of natural causes No problems noted. Brother No problems noted. Daughter , Passed age 24 from Over Dose No problems noted. 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 [employer] Feels Safe at Home: Yes Childhood Exposure to Second-Hand Smoke: No caffeine: Yes (2 cups of coffee/day ) during the past year weight has: remained stable Dental Care, Regularly: Yes Assistive Devices: Oxygen - Continuous Allergies Allergies Allergy/AdvReac Type Severity Reaction Status Date / Time mushroom Allergy Severe anaphylaxis Verified 09/09/20 22:38 Penicillins Allergy Severe anaphylaxis, Verified 09/09/20 22:38 facial & throat swelling acetazolamide Allergy Intermediate rash, hives Verified 09/09/20 22:38 mold Allergy Unknown unknown Verified 09/09/20 22:38 reaction sumatriptan AdvReac Intermediate flushing, Verified 09/09/20 22:38 heart racing Home Meds Home Medications Medication Instructions Recorded Confirmed duloxetine 60 mg PO QAM 01/03/20 09/09/20 Anoro Ellipta 1 puffs INH QAM 05/29/20 09/09/20 atorvastatin 40 mg PO HS 05/29/20 09/09/20 fludrocortisone 0.1 mg PO BID 05/29/20 09/09/20 ondansetron 8 mg PO Q8H PRN 05/29/20 09/09/20 cyclobenzaprine 10 mg PO TID PRN 07/02/20 09/09/20 acetaminophen [Tylenol] 325 - 650 mg PO DIRECTED PRN 08/13/20 09/09/20 hydroxyzine HCl 50 mg PO DAILY PRN 08/13/20 09/09/20 midodrine 2.5 mg PO TID 08/13/20 09/09/20 multivitamin-calcium carb 1 tab PO DAILY 08/13/20 09/09/20 Eliquis 2.5 mg PO BID 09/02/20 09/09/20 Previous Rx's Medication Instructions Recorded albuterol sulfate 90 mcg/actuation 2 puff INH Q6H PRN #18 gm 10/23/19 aerosol inhaler omeprazole 20 mg PO BID 30 Days #60 cap 01/27/20 magnesium oxide 400 mg PO BID #60 tab 02/07/20 aspirin 81 mg PO QAM #90 tab 07/05/20 lidocaine 1 patch TRANSDERMAL HS PRN #30 ea 07/05/20 Phospha 250 Neutral 1 tab PO BID #30 tab 07/28/20 gabapentin 100 mg PO BID #0 cap 08/17/20 oxycodone 5 mg PO Q6H PRN #0 tab 08/17/20 docusate sodium 100 mg PO BID #60 cap 09/03/20 polyethylene glycol 3350 [ClearLax] 17 g PO DAILY #238 g 09/03/20 Results & Data (ED) Vital Signs Vital Signs - 24 hr 09/09/20 21:23 09/09/20 21:27 09/09/20 22:10 Temperature 36.6 C Temperature Source Oral Pulse Rate 98 H 88 Pulse Rhythm Regular Pulse Strength Normal Respiratory Rate 25 H 31 H Respiratory Effort / Characteristics Non-Labored Spontaneous Short of Breath Spontaneous Accessory Muscle Use Respiratory Depth Shallow Normal Respiratory Pattern Regular Tachypnea Blood Pressure 128/84 Blood Pressure Mean 98 Blood Pressure Position Sitting Pulse Oximetry 93 93 94 Oxygen Delivery Method Nasal Cannula Nasal Cannula Oxygen Flow Rate 6 6 Fraction of Inspired Oxygen 30 Sepsis Recent Fever Within 48 Hours No Sepsis New/Unexplained Change in Mental Status N/A Sepsis Action Taken by Nursing No Action Required 09/09/20 22:16 09/09/20 22:50 09/09/20 23:45 Temperature Temperature Source Pulse Rate 85 Pulse Rhythm Pulse Strength Respiratory Rate 28 H Respiratory Effort / Characteristics SOB on Exertion Spontaneous Labored Respiratory Depth Normal Respiratory Pattern Tachypnea Blood Pressure Blood Pressure Mean Blood Pressure Position Pulse Oximetry 93 92 Oxygen Delivery Method BiPAP Oxygen Flow Rate 6 Fraction of Inspired Oxygen 40 Sepsis Recent Fever Within 48 Hours Sepsis New/Unexplained Change in Mental Status Sepsis Action Taken by Nursing 09/09/20 23:57 Temperature Temperature Source Pulse Rate Pulse Rhythm Pulse Strength Respiratory Rate 28 H Respiratory Effort / Characteristics Spontaneous Respiratory Depth Respiratory Pattern Blood Pressure Blood Pressure Mean Blood Pressure Position Pulse Oximetry 94 Oxygen Delivery Method BiPAP Oxygen Flow Rate Fraction of Inspired Oxygen 30 Sepsis Recent Fever Within 48 Hours Sepsis New/Unexplained Change in Mental Status Sepsis Action Taken by Long-Term Medications Current Medication List: was personally reviewed by me Laboratory Data Attestation: I reviewed the patient's lab results. Result diagrams: 09/09/20 22:10 09/09/20 22:10 Lab Results 09/09/20 09/09/20 09/09/20 Range/Units 22:02 22:02 22:10 WBC 7.89 (4.8-10.8) K/uL RBC 2.45 L (4.2-5.4) M/uL Hgb 8.1 L (12.0-16.0) g/dL Hct 24.3 L (37-47) % MCV 99.2 (80-100) fL MCH 33.1 (25-34) pg MCHC 33.3 (32-36) g/dL RDW Std Deviation 68.3 H (36.4-46.3) fL RDW Coeff of Anjelica 18.7 H (11.5-14.5) % Plt Count 126 L (130-400) K/uL MPV 10.2 (7.4-10.4) fL Immature Gran % (Auto) 0.1 % Neut % (Auto) 79.9 % Lymph % (Auto) 8.7 % Pender % (Auto) 10.6 % Eos % (Auto) 0.6 % Baso % (Auto) 0.1 % Neut # (Auto) 6.29 (1.4-6.5) K/uL Lymph # (Auto) 0.69 L (1.2-3.4) K/uL Pender # (Auto) 0.84 H (0.11-0.59) K/uL Eos # (Auto) 0.05 (0-0.5) K/uL Baso # (Auto) 0.01 (0-0.2) K/uL Immature Gran # (Auto) 0.01 (0.00-0.02) K/uL PT (9.0-12.0) Seconds INR (0.9-1.1) APTT (21.0-31.0) Seconds PTT Ratio Sodium (136-145) mmol/L Potassium (3.5-5.1) mmol/L Chloride (98-107) mmol/L Carbon Dioxide (21-32) mmol/L Anion Gap (3-11) BUN (7-18) mg/dl Creatinine (0.6-1.2) mg/dl Est Cr Clr Drug Dosing ml/min Est GFR ( Amer) ml/min Est GFR (Non-Af Amer) ml/min BUN/Creatinine Ratio (10-20) Glucose (70-99) mg/dl Calcium (8.5-10.1) mg/dl Total Bilirubin (0.2-1) mg/dl AST (15-37) U/L ALT (12-78) U/L Alkaline Phosphatase (45-117) U/L Troponin I (0-0.045) ng/ml NT-Pro-B Natriuret Pep (0-900) pg/ml Total Protein (6.4-8.2) gm/dl Albumin (3.4-5.0) gm/dl Globulin (2.5-4.0) gm/dl Albumin/Globulin Ratio (0.9-2) COVID-19 Eval Order Covid19 at [facility] SARS-CoV-2 (PCR) NEGATIVE (Negative) 09/09/20 09/09/20 Range/Units 22:10 22:10 WBC (4.8-10.8) K/uL RBC (4.2-5.4) M/uL Hgb (12.0-16.0) g/dL Hct (37-47) % MCV (80-100) fL MCH (25-34) pg MCHC (32-36) g/dL RDW Std Deviation (36.4-46.3) fL RDW Coeff of Anjelica (11.5-14.5) % Plt Count (130-400) K/uL MPV (7.4-10.4) fL Immature Gran % (Auto) % Neut % (Auto) % Lymph % (Auto) % Pender % (Auto) % Eos % (Auto) % Baso % (Auto) % Neut # (Auto) (1.4-6.5) K/uL Lymph # (Auto) (1.2-3.4) K/uL Pender # (Auto) (0.11-0.59) K/uL Eos # (Auto) (0-0.5) K/uL Baso # (Auto) (0-0.2) K/uL Immature Gran # (Auto) (0.00-0.02) K/uL PT 11.9 (9.0-12.0) Seconds INR 1.2 H (0.9-1.1) APTT 27.5 (21.0-31.0) Seconds PTT Ratio 1.0 Sodium 139 (136-145) mmol/L Potassium 2.5 L* (3.5-5.1) mmol/L Chloride 100 (98-107) mmol/L Carbon Dioxide 31 (21-32) mmol/L Anion Gap 7.0 (3-11) BUN 5 L (7-18) mg/dl Creatinine 0.49 L (0.6-1.2) mg/dl Est Cr Clr Drug Dosing 118.4 ml/min Est GFR ( Amer) 118.5 ml/min Est GFR (Non-Af Amer) 102.2 ml/min BUN/Creatinine Ratio 11.1 (10-20) Glucose 95 (70-99) mg/dl Calcium 8.1 L (8.5-10.1) mg/dl Total Bilirubin 0.6 (0.2-1) mg/dl AST 15 (15-37) U/L ALT 13 (12-78) U/L Alkaline Phosphatase 88 (45-117) U/L Troponin I < 0.015 (0-0.045) ng/ml NT-Pro-B Natriuret Pep 2812 H (0-900) pg/ml Total Protein 5.9 L (6.4-8.2) gm/dl Albumin 1.9 L (3.4-5.0) gm/dl Globulin 4.0 (2.5-4.0) gm/dl Albumin/Globulin Ratio 0.5 L (0.9-2) COVID-19 Eval Order SARS-CoV-2 (PCR) (Negative) Administered Medications Discontinued Medications Albuterol (Albut/Ipratrop 3mg/0.5mg Neb 3 Ml Vial) 3 ml NEB NOW STA Stop: 09/09/20 23:33 Last Admin: 09/09/20 23:45 Dose: 3 ml Documented by: [id number] Potassium Chloride (K Heladio / Wtr) 10 meq in 100 mls @ 100 mls/hr IV Q1H LC Stop: 09/10/20 01:29 Last Admin: 09/10/20 00:34 Dose: 100 mls/hr Documented by: [id number] Infusion: 09/10/20 00:23 Dose: 100 mls/hr Documented by: [id number] Admin: 09/09/20 23:23 Dose: 100 mls/hr Documented by: [id number] Methylprednisolone (Methylprednisolone 40 Mg/Ml Vial) 40 mg IV NOW STA Stop: 09/09/20 23:33 Last Admin: 09/09/20 23:43 Dose: 40 mg Documented by: [id number] Oxycodone HCl (Oxycodone Hcl Ir 5 Mg Tab (Immediate Release)) 10 mg PO NOW STA Stop: 09/09/20 23:31 Last Admin: 09/09/20 23:41 Dose: 10 mg Documented by: [id number] Imaging Data Attestation: I personally reviewed and interpreted this imaging study as follows: My Impression: Chest x-ray: There is a right pleural effusion with some increased right lung consolidation when compared to previous. There is no pneumothorax. No CHF. Discharge Plan Visit Data Chief Complaint: Shortness of Breath/Dyspnea Stated Complaint: NAUSEA/VOMITING on Hospice ED Provider: Cruz Weiss Discharge Problem: SOB (shortness of breath), Pleural effusion, Lung cancer, Hypokalemia Patient Disposition: Admitted As Inpatient Condition: Serious Forms Stand Alone Forms: My [facility] Prescriptions Prescriptions: No Action albuterol sulfate 90 mcg/actuation HFA aerosol inhaler 2 puff INH Q6H PRN (Reason: Shortness Of Breath Or Wheezing) Qty: 18 RF: 3 duloxetine 60 mg capsule,delayed release(DR/EC) 60 mg PO QAM RF: 0 omeprazole 20 mg capsule,delayed release(DR/EC) 20 mg PO BID 30 Days Qty: 60 RF: 3 magnesium oxide 400 mg (241.3 mg magnesium) Tablet 400 mg PO BID Qty: 60 RF: 0 atorvastatin 40 mg tablet 40 mg PO HS RF: 0 ondansetron 8 mg tablet,disintegrating 8 mg PO Q8H PRN (Reason: Nausea And Vomiting) RF: 0 fludrocortisone 0.1 mg tablet 0.1 mg PO BID RF: 0 Anoro Ellipta 62.5-25 mcg/actuation blister with device 1 puffs INH QAM RF: 0 Phospha 250 Neutral 250 mg tablet 1 tab PO BID Qty: 30 RF: 0 acetaminophen [Tylenol] 325 mg Tablet 325 - 650 mg PO DIRECTED PRN (Reason: FEVER/PAIN) RF: 0 hydroxyzine HCl 50 mg Tablet 50 mg PO DAILY PRN (Reason: Anxiety) RF: 0 multivitamin-calcium carb Tablet,Chewable 1 tab PO DAILY RF: 0 midodrine 2.5 mg tablet 2.5 mg PO TID RF: 0 gabapentin 100 mg capsule 100 mg PO BID Qty: 0 RF: 0 oxycodone 10 mg Tablet 5 mg PO Q6H PRN (Reason: Pain, Moderate) Qty: 0 RF: 0 Eliquis 2.5 mg tablet 2.5 mg PO BID RF: 0 docusate sodium 100 mg Capsule 100 mg PO BID Qty: 60 RF: 0 polyethylene glycol 3350 [ClearLax] 17 gram/dose powder 17 g PO DAILY Qty: 238 RF: 0 cyclobenzaprine 10 mg tablet 10 mg PO TID PRN (Reason: Muscle Spasm) RF: 0 aspirin 81 mg Tablet,Delayed Release (Dr/Ec) 81 mg PO QAM Qty: 90 RF: 0 lidocaine 5 % Adhesive Patch,Medicated 1 patch transdermal HS PRN (Reason: Pain) Qty: 30 RF: 0 Referrals Referrals: Hany Glaser MD [Primary Care Provider] - Discharge Problem: Lung cancer Qualifiers: Laterality: right Lung location: unspecified part of lung Qualified Code(s): C34.91 - Malignant neoplasm of unspecified part of right bronchus or lung
[2020-09-09 22:32] LABS: Basophils # (auto) 0.01 K/uL (0-0.2); Basophils % (auto) 0.1 %; Eosinophils # (auto) 0.05 K/uL (0-0.5); Eosinophils % (auto) 0.6 %; Hematocrit (blood only) 24.3 % (37-47); Hemoglobin 8.1 g/dL (12.0-16.0); Immature Granulocytes # (auto) 0.01 K/uL (0.00-0.02); Immature Granulocytes % (auto) 0.1 %; Lymphocytes # (auto) 0.69 K/uL (1.2-3.4); Lymphocytes % (auto) 8.7 %; Mean Corpuscular Hemoglobin 33.1 pg (25-34); Mean Corpuscular Hgb Conc 33.3 g/dL (32-36); Mean Corpuscular Volume 99.2 fL (80-100); Mean Platelet Volume 10.2 fL (7.4-10.4); Monocytes # (auto) 0.84 K/uL (0.11-0.59); Monocytes % (auto) 10.6 %; Neutrophils # (auto) 6.29 K/uL (1.4-6.5); Neutrophils % (auto) 79.9 %; Platelet Count 126 K/uL (130-400); RDW Coefficient of Variation 18.7 % (11.5-14.5); RDW Standard Deviation 68.3 fL (36.4-46.3); Red Blood Count 2.45 M/uL (4.2-5.4); White Blood Count 7.89 K/uL (4.8-10.8)
[2020-09-09 22:50] LABS: INR 1.2 (0.9-1.1); Partial Thromboplastin Time 27.5 Seconds (21.0-31.0); Prothrombin Time 11.9 Seconds (9.0-12.0)
[2020-09-09 23:20] LABS: Alanine Aminotransferase 13 U/L (12-78); Albumin Globulin Ratio 0.5 (0.9-2); Albumin Level 1.9 gm/dl (3.4-5.0); Alkaline Phosphatase 88 U/L (45-117); Aspartate Aminotransferase 15 U/L (15-37); Bilirubin,Total 0.6 mg/dl (0.2-1); Blood Urea Nitrogen 5 mg/dl (7-18); Calcium 8.1 mg/dl (8.5-10.1); Carbon Dioxide 31 mmol/L (21-32); Chloride 100 mmol/L (98-107); Creatinine Clr Calc Pharmacy 118.4 ml/min; Est GFR (African American) 118.5 ml/min; Est GFR (Non-African American) 102.2 ml/min; Glucose 95 mg/dl (70-99); Potassium 2.5 mmol/L (3.5-5.1); Sodium 139 mmol/L (136-145); Total Protein 5.9 gm/dl (6.4-8.2); Troponin I < 0.015 ng/ml (0-0.045)
[2020-09-09] MEDS: POTASSIUM CHLORIDE / WTR 10 MEQ/100 ML PLCT IV SCH (23:23)
[2020-09-09] MEDS ORDERED: oxyCODONE HCL SOLN 5 MG/5 ML UDC PO STA (23:26)
[2020-09-09] MEDS ORDERED: oxyCODONE HCL IR 5 MG TAB (IMMEDIATE RELEASE) PO STA (23:30)
[2020-09-09] MEDS ORDERED: ALBUT/IPRATROP 3MG/0.5MG NEB 3 ML VIAL NEB STA (23:32)
[2020-09-10 00:02] LABS: NT Pro B Type Natriuretic Pept 2812 pg/ml (0-900)
--- NOTE | 2020-09-10 00:02 | History & Physical Report ---
Date of Service September 10, 2020 Assessment & Plan (1) Acute hypoxemic respiratory failure: Secondary to HCAP/complicated pneumonia given increase in chronic right pleural effusion hx small cell lung cancer status post chemoradiation hx recent hospital confinement Patient not a candidate for any chemotherapy given declining status and multiple recurrent hospital admissions in the last year as per outpatient documentation Patient recently enrolled in home hospice. Patient knows that treatment for complicated pneumonia/right pleural effusion will not significantly impact her survival and her current quality of life. Patient not interested in antibiotic or procedural interventions. Patient would like to concentrate on her comfort with her remaining time. Agreeable to stopping home medications not contributory to goal. [facility] Comfort measures Palliative care consult Re: regimen for comfort care for home if possible Social service RE discharge planning, patient may not be eligible for home hospice given functional disability, living by herself at home Attempted to contact patient's ex- (Mr. Abdiaziz Fowler, contact #[phone]) for to give update on plan of care. No answer. Left message for call back. Text document was generated using [employer] voice recognition software. It may contain grammatical or spelling errors. Kindly contact undersigned for clarification of any documentation item in question. History of Present Illness Chief Complaint: Cough, shortness of breath Primary Care Provider: Hany Glaser MD History obtained from patient and records. Patient is a fair historian. Medical history significant for CVA, orthostatic hypotension on fludrocortisone/midodrine Rx, small cell lung cancer sp chemoradiation, mood disorder, chronic back pain secondary to thoracic compression fracture, chronic anemia (baseline hemoglobin 8), RUE DVT on Eliquis, past tobacco abuse. Multiple recurrent [facility] admissions since May 2020. Last confinement last week for abdominal pain. Patient to consider palliative care/hospice as per documentation. Patient not a candidate for any kind of systemic chemotherapy as per recent outpatient Oncology note from 3 days ago. Patient enrolled at home hospice few days ago. 2 days history of junky cough, worsening shortness of breath without fever, chills. Chest pain from coughing as per patient. Patient admits to some nausea and vomiting symptoms. Patient denies aspiration. Patient denies fluid retention. At the ER, O2 sats 80s at some point. BiPAP initiated at the ER. 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 Allergies Allergy/AdvReac Type Severity Reaction Status Date / Time mushroom Allergy Severe anaphylaxis Verified 09/09/20 22:38 Penicillins Allergy Severe anaphylaxis, Verified 09/09/20 22:38 facial & throat swelling acetazolamide Allergy Intermediate rash, hives Verified 09/09/20 22:38 mold Allergy Unknown unknown Verified 09/09/20 22:38 reaction sumatriptan AdvReac Intermediate flushing, Verified 09/09/20 22:38 heart racing Home Medications Medication Instructions Recorded Confirmed Type albuterol sulfate 90 mcg/actuation 2 puff INH Q6H PRN #18 gm 10/23/19 09/09/20 Rx aerosol inhaler duloxetine 60 mg PO QAM 01/03/20 09/09/20 History omeprazole 20 mg PO BID 30 Days #60 cap 01/27/20 09/09/20 Rx magnesium oxide 400 mg PO BID #60 tab 02/07/20 09/09/20 Rx Anoro Ellipta 1 puffs INH QAM 05/29/20 09/09/20 History atorvastatin 40 mg PO HS 05/29/20 09/09/20 History fludrocortisone 0.1 mg PO BID 05/29/20 09/09/20 History ondansetron 8 mg PO Q8H PRN 05/29/20 09/09/20 History cyclobenzaprine 10 mg PO TID PRN 07/02/20 09/09/20 History aspirin 81 mg PO QAM #90 tab 07/05/20 09/09/20 Rx lidocaine 1 patch TRANSDERMAL HS PRN #30 ea 07/05/20 09/09/20 Rx Phospha 250 Neutral 1 tab PO BID #30 tab 07/28/20 09/09/20 Rx acetaminophen [Tylenol] 325 - 650 mg PO DIRECTED PRN 08/13/20 09/09/20 History hydroxyzine HCl 50 mg PO DAILY PRN 08/13/20 09/09/20 History midodrine 2.5 mg PO TID 08/13/20 09/09/20 History multivitamin-calcium carb 1 tab PO DAILY 08/13/20 09/09/20 History gabapentin 100 mg PO BID #0 cap 08/17/20 09/09/20 Rx oxycodone 5 mg PO Q6H PRN #0 tab 08/17/20 09/09/20 Rx Eliquis 2.5 mg PO BID 09/02/20 09/09/20 History docusate sodium 100 mg PO BID #60 cap 09/03/20 09/09/20 Rx polyethylene glycol 3350 [ClearLax] 17 g PO DAILY #238 g 09/03/20 09/09/20 Rx Past Med/Surg History Medical History Abdominal pain Acute hypokalemia Acute kidney injury Acute shoulder pain Now a constant ache - no prescription meds needed Altered mental status Anxiety Chronic venous insufficiency follows with vascular (Dr. Carlson) CKD (chronic kidney disease), stage III COPD with emphysema Dentalgia Hypertension Hypokalemia Hypomagnesemia Hypoxia Kidney stones LAD (lymphadenopathy), mediastinal Major depressive disorder, recurrent episode with anxious distress Daughter from OD in 2015 Migraine Nausea & vomiting Neutropenia with fever Nicotine dependence Palliative care encounter Pancytopenia Pneumonia Polysubstance overdose Hx of 2017 Pulmonary nodule "7 mm RUL nodule, stable 09/25/15 - 09/16/16; repeat 6 mos" Small cell lung cancer in adult Diagnosed 10/30/2019 - metastatic to lymph nodes Surgical History History of bronchoscopy 10/30/2019 - with EBUS History of cataract surgery 2004 - bilateral History of section 1991 History of colonoscopy unsuccessful (poor bowel prep) History of cystoscopy 2007 - with stent History of dental surgery 02/2019 - Full upper teeth extracted S/P arthroscopy of left knee S/P arthroscopy of right knee Family History Grandmother (Maternal) , Passed in 80's of metastatic cancer (unknown primary) No problems noted. Mother , Passed age 93 of natural causes No problems noted. Father , Passed age 97 of natural causes No problems noted. Brother No problems noted. Daughter , Passed age 24 from Over Dose No problems noted. 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 [employer] Feels Safe at Home: Yes Safety Concerns: Feels Safe At This Time Childhood Exposure to Second-Hand Smoke: No caffeine: Yes (2 cups of coffee/day ) during the past year weight has: remained stable Dental Care, Regularly: Yes Assistive Devices: BiPap, Denture - Upper, Denture - Lower, Oxygen - Continuous and Walker Review of Systems Review of Systems: As per HPI, all 10 systems reviewed, all other ROS negative Physical Exam Physical Exam: GENERAL: uncomfortable, chronically ill, minimal respiratory distress SKIN: Pallor , warm HEENT: Pale palpebral conjunctivae, no ptosis, dry buccal mucosa, BiPAP in place NECK : Supple, no tenderness CHEST : Decreased breath sounds, no tenderness HEART : RRR, no obvious murmurs ABDOMEN: Some distention, nontender EXTREMITIES : No LE swelling/tenderness, no other conspicuous deformities noted NEUROLOGIC : Coherent, no facial asymmetry, no other gross focality Results & Data Results & Data ([facility]) Vital Signs (Past 12 Hours) Vital Signs Temp Pulse Resp BP Pulse Ox 09/09/20 23:57 28 H 94 09/09/20 22:50 93 09/09/20 22:10 88 31 H 94 09/09/20 21:27 93 09/09/20 21:23 36.6 C 98 H 25 H 128/84 93 Laboratory Results Laboratory Results WBC 7.89 K/uL (4.8-10.8) 09/09/20 22:10 RBC 2.45 M/uL (4.2-5.4) L 09/09/20 22:10 Hgb 8.1 g/dL (12.0-16.0) L 09/09/20 22:10 Hct 24.3 % (37-47) L 09/09/20 22:10 MCV 99.2 fL (80-100) 09/09/20 22:10 MCH 33.1 pg (25-34) 09/09/20 22:10 MCHC 33.3 g/dL (32-36) 09/09/20 22:10 RDW Std Deviation 68.3 fL (36.4-46.3) H 09/09/20 22:10 RDW Coeff of Anjelica 18.7 % (11.5-14.5) H 09/09/20 22:10 Plt Count 126 K/uL (130-400) L 09/09/20 22:10 MPV 10.2 fL (7.4-10.4) 09/09/20 22:10 Immature Gran % (Auto) 0.1 % 09/09/20 22:10 Neut % (Auto) 79.9 % 09/09/20 22:10 Lymph % (Auto) 8.7 % 09/09/20 22:10 Mcduffie % (Auto) 10.6 % 09/09/20 22:10 Eos % (Auto) 0.6 % 09/09/20 22:10 Baso % (Auto) 0.1 % 09/09/20 22:10 Neut # (Auto) 6.29 K/uL (1.4-6.5) 09/09/20 22:10 Lymph # (Auto) 0.69 K/uL (1.2-3.4) L 09/09/20 22:10 Mcduffie # (Auto) 0.84 K/uL (0.11-0.59) H 09/09/20 22:10 Eos # (Auto) 0.05 K/uL (0-0.5) 09/09/20 22:10 Baso # (Auto) 0.01 K/uL (0-0.2) 09/09/20 22:10 Immature Gran # (Auto) 0.01 K/uL (0.00-0.02) 09/09/20 22:10 PT 11.9 Seconds (9.0-12.0) 09/09/20 22:10 INR 1.2 (0.9-1.1) H 09/09/20 22:10 APTT 27.5 Seconds (21.0-31.0) 09/09/20 22:10 PTT Ratio 1.0 09/09/20 22:10 Sodium 139 mmol/L (136-145) 09/09/20 22:10 Potassium 2.5 mmol/L (3.5-5.1) L* 09/09/20 22:10 Chloride 100 mmol/L (98-107) 09/09/20 22:10 Carbon Dioxide 31 mmol/L (21-32) 09/09/20 22:10 Anion Gap 7.0 (3-11) 09/09/20 22:10 BUN 5 mg/dl (7-18) L 09/09/20 22:10 Creatinine 0.49 mg/dl (0.6-1.2) L 09/09/20 22:10 Est Cr Clr Drug Dosing 118.4 ml/min 09/09/20 22:10 Est GFR ( Amer) 118.5 ml/min 09/09/20 22:10 Est GFR (Non-Af Amer) 102.2 ml/min 09/09/20 22:10 Glucose 95 mg/dl (70-99) 09/09/20 22:10 Calcium 8.1 mg/dl (8.5-10.1) L 09/09/20 22:10 Total Bilirubin 0.6 mg/dl (0.2-1) 09/09/20 22:10 AST 15 U/L (15-37) 09/09/20 22:10 ALT 13 U/L (12-78) 09/09/20 22:10 Alkaline Phosphatase 88 U/L (45-117) 09/09/20 22:10 Troponin I < 0.015 ng/ml (0-0.045) 09/09/20 22:10 Total Protein 5.9 gm/dl (6.4-8.2) L 09/09/20 22:10 Albumin 1.9 gm/dl (3.4-5.0) L 09/09/20 22:10 Globulin 4.0 gm/dl (2.5-4.0) 09/09/20 22:10 Albumin/Globulin Ratio 0.5 (0.9-2) L 09/09/20 22:10 COVID-19 Eval Order Covid19 at [facility] 09/09/20 22:02 SARS-CoV-2 (PCR) NEGATIVE (Negative) 09/09/20 22:02 Diagnostic Findings Chest x-ray as per my interpretation pneumonia right with pleural effusion, congestion EKG as per my interpretation : Rate 90, NSR, normal axis, T wave abnormalities anterior leads
[2020-09-10] MEDS ORDERED: MoRPHine SULFATE 4 MG/ML 1 ML CARP\\VIAL IV STA (00:08)
[2020-09-10] MEDS ORDERED: MoRPHine SULFATE 2 MG/ML CARP IV STA (00:08)
[2020-09-10 00:09] LABS: BUN Creatinine Ratio 11.1 (10-20)
[2020-09-10] MEDS ORDERED: POTASSIUM CHLORIDE 10 MEQ / 100ML WTR IV ONE (00:33)
[2020-09-10] MEDS: POTASSIUM CHLORIDE / WTR 10 MEQ/100 ML PLCT IV SCH (00:34)
[2020-09-10] MEDS ORDERED: MoRPHine SULFATE 2 MG/ML CARP IV PRN (01:23)
[2020-09-10] MEDS ORDERED: PROMETHAZINE HCL 12.5 MG in SODIUM CHLORIDE 0.9% 50 ML IV PRN (01:23)
[2020-09-10] MEDS ORDERED: MoRPHine SULFATE 5 MG/0.25 ML UDP PO PRN (01:23)
[2020-09-10] MEDS ORDERED: ONDANSETRON 4 MG OD TAB SL PRN (01:23)
[2020-09-10] MEDS ORDERED: oxyCODONE HCL IR 5 MG TAB (IMMEDIATE RELEASE) PO PRN (01:23)
[2020-09-10 01:25] LABS: Magnesium 1.4 mg/dl (1.8-2.4)
[2020-09-10] MEDS ORDERED: MoRPHine SULFATE 4 MG/ML 1 ML CARP\\VIAL IV PRN (01:55)
[2020-09-10] MEDS: MoRPHine SULFATE 4 MG/ML 1 ML CARP\\VIAL IV PRN ×8 (04:10→23:00)
--- NOTE | 2020-09-10 07:44 | XRay Report ---
XR chest 1V portable CLINICAL HISTORY: Shortness of breath. Lung cancer. COMPARISON STUDY: CT July 26, 2020. Chest radiograph August 13, 2020. FINDINGS: Right internal jugular [id number] is in place. Right mid and lower lung airspace opacity has progressed. A small right pleural effusion is noted. There is a trace left pleural effusion. Mil d pulmonary edema is noted. There is evidence for right lung volume loss. There is no pneumothorax. IMPRESSION: 1. Increase in right mid and lower lung airspace opacity. This favors pneumonia. However, radiographi c follow up to ensure resolution is recommended to exclude the possibility of mass. 2. Small right and trace left pleural effusions. 3. Interstitial pulmonary edema. ACT 112: Negative or not required by law. Electronically signed by: Ildefonso Alarcon M.D. 09/10/2020 7:43 AM
--- NOTE | 2020-09-10 08:04 | Electrocardiogram Report ---
Test Reason : Blood Pressure : / mmHG Vent. Rate : 089 BPM Atrial Rate : 089 BPM P-R Int : 118 ms QRS Dur : 078 ms QT Int : 402 ms P-R-T Axes : 021 031 046 degrees QTc Int : 489 ms Normal sinus rhythm Nonspecific ST and T wave abnormality Anterior leads Abnormal ECG When compared with ECG of 13-AUG-2020 17:49, No significant change was found Confirmed by Norman Schaeffer ([id number]) on 09/10/2020 8:04:04 AM Referred By: REFERRED SELF Confirmed By:Norman Schaeffer
[2020-09-10] MEDS: oxyCODONE HCL IR 5 MG TAB (IMMEDIATE RELEASE) PO PRN (14:42)
--- NOTE | 2020-09-10 15:02 | Palliative Care Consultation ---
Date of Consultation September 10, 2020 Assessment & Plan (1) Palliative care encounter: Ms. Fischer is a 65 year old female who presented to the [facility] with shortness of breath and an increased and worsening cough over the past few days. She is known to the palliative medicine service and has had TWELVE admissions over the last 12 months, which has become more frequent with multiple admissions per month since July 2020. She has metastatic small cell lung cancer and positive lymphadenopathy. She has received two cycles of chemotherapy: Cisplatin and Etosposide along with radx treatment. A brain MRI was performed in 12/2019 with multiple small acute infarcts, but no mass effect. Her second cycle of chemotherapy was received between 12/29-01/01 2020. She completed radx on 02/10/2020. She was recently admitted to [facility] from 08/13-08/17, and most recently was discharged on 09/03/20. At that time, it was decided by her and her ex- to return home with hospice services in place. Additional PMH includes: anxiety, and HTN. Palliative Medicine was re-consulted to assist with decision making. I talked with the patient who was sitting upright in her bed and slightly winded. She was requiring more supplemental oxygen than previous admissions, now on 6LNC. I did talk with her at length and she stated that she lives alone at home and uses a walker to ambulate, but her ex-, Gagan stops in a few times per day and does live a few blocks away, this is unchanged from previous admis billy. She really does want to be at home. All providers agree that she should have 24/7 care at this point and is not safe to be alone. Of course, this individual is able to make poor choices and go home; however, I think that reaching out to office of aging to assess the status of her application for waiver program. I reached out to her ex- Gagan at , but was unable to reach hi m. He is pt's only support system as they have no other family in the area. He wanted to see if she would be eligible for any services at home. Per Marcus, she is committed to the hospice service program, but admittedly became inpatient waiting for them to get to her for management. She said that Al does help her financially and agreed that it may be a good idea to talk to him about hiring some private caregivers in the home. For now, she is on full comfort measures. She has Morphine IV 4 mg Q2 PRN ordered, along with Oxy IR for breakthrough and Ativan, as anxiety has been a component of her discomfort. Could consider GIP admission for hospice as she has increased oxygen requirements and uncontrolled symptoms at this time. This was discussed with case management. If under GIP services, could provide her with appropriate symptom management and work on getting her an appropriate caregiver set up at home or SNF. Patient, to date, has been reluctant to SNF setting. (2) SOB (shortness of breath): (3) Lung cancer: Laterality: right Lung location: unspecified part of lung Qualified Code(s): C34.91 - Malignant neoplasm of unspecified part of right bronchus or lung (4) Anxiety: History of Present Illness Reason for Consultation: Goals of Care Requesting Physician: Dr. Baron Attending Physician: Shefali Acharya MD History of Present Illness Ms. Fischer is a 65 year old female who presented to the [facility] with shortness of breath and an increased and worsening cough over the past few days. She is known to the palliative medicine service and has had TWELVE admissions over the last 12 months, which has become more frequent with multiple admissions per month since July 2020. She has metastatic small cell lung cancer and positive lymphadenopathy. She has received two cycles of chemotherapy: Cisplatin and Etosposide along with radx treatment. A brain MRI was performed in 12/2019 with multiple small acute infarcts, but no mass effect. Her second cycle of chemotherapy was received between 12/29-01/01 2020. She completed radx on . She was recently admitted to [facility] from 08/13-08/17, and most recently was discharged on 09/03/20. At that time, it was decided by her and her ex- to return home with hospice services in place. Additional PMH includes: anxiety, and HTN. Palliative Medicine was re-consulted to assist with decision making. Please see A/P for further details. Thanks for re-involving Palliative Medicine with this individual. Allergies Allergy/AdvReac Type Severity Reaction Status Date / Time mushroom Allergy Severe anaphylaxis Verified 09/09/20 22:38 Penicillins Allergy Severe anaphylaxis, Verified 09/09/20 22:38 facial & throat swelling acetazolamide Allergy Intermediate rash, hives Verified 09/09/20 22:38 mold Allergy Unknown unknown Verified 09/09/20 22:38 reaction sumatriptan AdvReac Intermediate flushing, Verified 09/09/20 22:38 heart racing Home Medications Medication Instructions Recorded Confirmed Type albuterol sulfate 90 mcg/actuation 2 puff INH Q6H PRN #18 gm 10/23/19 09/09/20 Rx aerosol inhaler duloxetine 60 mg PO QAM 01/03/20 09/09/20 History omeprazole 20 mg PO BID 30 Days #60 cap 01/27/20 09/09/20 Rx magnesium oxide 400 mg PO BID #60 tab 02/07/20 09/09/20 Rx Anoro Ellipta 1 puffs INH QAM 05/29/20 09/09/20 History atorvastatin 40 mg PO HS 05/29/20 09/09/20 History fludrocortisone 0.1 mg PO BID 05/29/20 09/09/20 History ondansetron 8 mg PO Q8H PRN 05/29/20 09/09/20 History cyclobenzaprine 10 mg PO TID PRN 07/02/20 09/09/20 History aspirin 81 mg PO QAM #90 tab 07/05/20 09/09/20 Rx lidocaine 1 patch TRANSDERMAL HS PRN #30 ea 07/05/20 09/09/20 Rx Phospha 250 Neutral 1 tab PO BID #30 tab 07/28/20 09/09/20 Rx acetaminophen [Tylenol] 325 - 650 mg PO DIRECTED PRN 08/13/20 09/09/20 History hydroxyzine HCl 50 mg PO DAILY PRN 08/13/20 09/09/20 History midodrine 2.5 mg PO TID 08/13/20 09/09/20 History multivitamin-calcium carb 1 tab PO DAILY 08/13/20 09/09/20 History gabapentin 100 mg PO BID #0 cap 08/17/20 09/09/20 Rx oxycodone 5 mg PO Q6H PRN #0 tab 08/17/20 09/09/20 Rx Eliquis 2.5 mg PO BID 09/02/20 09/09/20 History docusate sodium 100 mg PO BID #60 cap 09/03/20 09/09/20 Rx polyethylene glycol 3350 [ClearLax] 17 g PO DAILY #238 g 09/03/20 09/09/20 Rx Patient History Medical History (Updated 09/10/20 @ 20:25 by VICKI Chu) Abdominal pain Acute hypokalemia Acute kidney injury Acute shoulder pain Now a constant ache - no prescription meds needed Altered mental status Anxiety Chronic venous insufficiency follows with vascular (Dr. Carlson) CKD (chronic kidney disease), stage III COPD with emphysema Dentalgia Hypertension Hypokalemia Hypomagnesemia Hypoxia Kidney stones LAD (lymphadenopathy), mediastinal Major depressive disorder, recurrent episode with anxious distress Daughter from OD in 2016 Migraine Nausea & vomiting Neutropenia with fever Nicotine dependence Palliative care encounter Palliative care encounter Pancytopenia Pneumonia Polysubstance overdose Hx of 2017 Pulmonary nodule "7 mm RUL nodule, stable 09/25/15 - 09/16/16; repeat 6 mos" Small cell lung cancer in adult Diagnosed 10/30/2019 - metastatic to lymph nodes Surgical History History of bronchoscopy 10/30/2019 - with EBUS History of cataract surgery 2004 - bilateral History of section 1991 History of colonoscopy unsuccessful (poor bowel prep) History of cystoscopy 2007 - with stent History of dental surgery 02/2019 - Full upper teeth extracted S/P arthroscopy of left knee 1989' S/P arthroscopy of right knee Family History Grandmother (Maternal) , Passed in 80's of metastatic cancer (unknown primary) No problems noted. Mother , Passed age 93 of natural causes No problems noted. Father , Passed age 97 of natural causes No problems noted. Brother No problems noted. Daughter , Passed age 24 from Over Dose No problems noted. 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 [employer] Feels Safe at Home: Yes Safety Concerns: Feels Safe At This Time Childhood Exposure to Second-Hand Smoke: No caffeine: Yes (2 cups of coffee/day ) during the past year weight has: remained stable Dental Care, Regularly: Yes Assistive Devices: BiPap, Denture - Upper, Denture - Lower, Oxygen - Continuous and Walker Review of Systems Review of Systems: [place] System Assessment Scale: Pain: 1/3 Shortness of breath: 2/3 Anxiety: 2/3 Tiredness: 1/3 Palliative Performance Scale: 30% Physical Exam Constitutional: + acute distress, + frail appearing and cooperative ENMT: Nose: + dry nasal mucous membranes Respiratory: + pursed lip breathing Auscultation: + diminished lung sounds Cardiovascular: Rate/Rhythm: regular rate and regular rhythm Heart Sounds: normal S1 and normal S2 Extremities: normal capillary refill Gastrointestinal (Abdomen): Percussion/Palpation: abdomen soft; abdomen nontender Skin: + ecchymosis and + pallor Psychiatric: A+Ox3, euthymic affect Results & Data ([facility]) Vital Signs (Past 12 Hours) Vital Signs Temp Pulse Pulse Resp BP Pulse Ox 09/10/20 07:00 36.5 C 77 22 95/57 L 96 09/10/20 03:26 80 27 H 93 PG Care Time/CCT Total # of Minutes Spent Total Time Spent with Patient: Total time spent is greater than 50% in coordination of care (as documented) at patient's floor/unit and/or counseling patient: 70 minutes with > 50% of that time spent assessing the patient, discussing goals of care and collaborating with IDT Coding Level of Care Code 42036 Initial Inpt Care Lvl 3 Diagnoses Palliative care encounter Z51.5 SOB (shortness of breath) R06.02 Lung cancer C34.91 Laterality: right Lung location: unspecified part of lung Anxiety F41.9 Time Spent (min) 70
--- NOTE | 2020-09-10 19:18 | Hospitalist Progress Note ---
Date of Service September 10, 2020 Assessment & Plan (1) Acute hypoxemic respiratory failure: Hx small cell lung cancer status post chemoradiation Nausea and Vomiting CVA (cerebral vascular accident) Anemia Patient not a candidate for any chemotherapy given declining status and multiple recurrent hospital admissions in the last year as per outpatient documentation Pt is established with home hospice care Palliative care on board Very anxious to go home, but there is no one to care for her at home. Her ex- checks on her couple time a day Refused to go to SNF for hospice care Currently required 4L NC oxygen supplement Case discussed with case management that said pt already had oxygen at home that can go up to 10L NC Continue comfort care only with oxycodone and Ativan Pneumonia CXR showed increase in right mid and lower lung airspace opacity. This favors pneumonia. Patient is not interested in antibiotic or any procedural intervention Continue comfort care only Continue oxygen supplement Disposition refused SNF Will try to update ex- (Mr. Abdiaziz Fowler, contact #[phone]) Admission and Anticipated Discharge Date Admission Date: September 10, 2020 Subjective Pt was seen and examined for follow up of nausea and vomiting Sitting at the edge of the bed with no distress Pt said that she feels fine She said that she is tolerated her diet She wants to go home The hospice team recommended placement since pt has no one to care for her She is not interested to go to a facility for hospice She said that her ex- usually check on her and do grocery for her She said that she would follow what her ex- says She said that if the ex- tells her to come home, she will come home and she said to stay then she will stay Later her ex- called and advised her to stay for the night Denies any chest pain, palpitation, dizziness and SOB Review of Systems Review of Systems: All systems reviewed & are unremarkable except as noted in Subjective Physical Exam Physical Exam: General- No acute distress Head- atraumatic Eyes- PERRL, EOMI, ENT- oropharynx clear Neck- supple, no JVD Lungs- clear to auscultation Heart- regular rhythm Abdomen- normal bowel sounds, soft, nontender Extremities- no calf tenderness Neuro- alert, oriented x 3; PERRL, EOMI; no facial palsy; no dysarthria Skin- warm & dry
[2020-09-11] MEDS: MoRPHine SULFATE 4 MG/ML 1 ML CARP\\VIAL IV PRN ×9 (01:01→23:48)
--- NOTE | 2020-09-11 12:07 | Palliative Care Progress Note ---
Date of Service September 11, 2020 Assessment & Plan (1) Palliative care encounter: Ms. Fischer remains on comfort measures. She has Morphine IV 4 mg Q2 PRN ordered and has used 40 mg of IV Morphine over the last 24 hours, along with Oxy IR for breakthrough once. She continues to have Ativan available as anxiety has been a component of her discomfort. Patient has officially been noted to on GIP through [facility]. For now, due to the amount of IV medications she is requiring, there is a p ossibility that she will go to a SNF for respite care under hospice over the next few days. If this is the case, she will need to be converted to something oral or transdermal. Based on her IV morphine equivalent, I think the best option would be transitioning her to a Fentanyl patch and having Oxy IR for breakthrough. Based on the 40 mg utilization, this would convert to a 50mcg Fent anyl patch. as there is still consideration as to the plan, will wait for confirmation from Hospice prior to making this official transition. Communicated with Hospitalist. Another call out to Al with no answer. Patient, to date, has been reluctant to SNF setting, but this has been discussed with her today and she is willing for this on a respite period. She really does want to be at home with her ferret, but with her uncontrolled symptoms she does agree that not to be the best plan at this time. Palliative will follow. (2) SOB (shortness of breath): (3) Lung cancer: (4) Anxiety: Admission and Anticipated Discharge Date Admission Date: September 10, 2020 Subjective Pt evaluated and in no apparent distress. The hospice team recommended placement since pt has no one to care for her She is not interested to go to a facility for hospice, but does understand that she is uncomfortable at times and does not have anyone to help her. She would like to talk to Al her ex- about paying for some private caregivers for additional support. Review of Systems Review of Systems: [place] [facility] Assessment Scale: Pain: 1/3 Shortness of breath: 2/3 Anxiety: 2/3 Tiredness: 1/3 Palliative Performance Scale: 30% Physical Exam Constitutional: + acute distress, + frail appearing and cooperative ENMT: Nose: + dry nasal mucous membranes Respiratory: + pursed lip breathing Auscultation: + diminished lung sounds Cardiovascular: Rate/Rhythm: regular rate and regular rhythm Heart Sounds: normal S1 and normal S2 Extremities: normal capillary refill Gastrointestinal (Abdomen): Percussion/Palpation: abdomen soft; abdomen nontender Skin: + ecchymosis and + pallor Psychiatric: A+Ox3, euthymic affect Results & Data ([facility]) Vital Signs (Past 12 Hours) Vital Signs Temp Pulse Resp BP Pulse Ox 09/11/20 05:54 36.5 C 71 16 114/69 97 PG Care Time/CCT Total # of Minutes Spent Total Time Spent with Patient: Total time spent is greater than 50% in coordination of care (as documented) at patient's floor/unit and/or counseling patient: 35 minutes with > 50% of that time spent assessing the patient, discussing goals of care with the patient, assessing symptom management needs and collaborating with IDT Coding Level of Care Code 70060 Subseq Hosp Care Lvl 3 Diagnoses Palliative care encounter Z51.5 SOB (shortness of breath) R06.02 Lung cancer C34.91 Laterality: right Lung location: unspecified part of lung Anxiety F41.9 Time Spent (min) 35 (1) Lung cancer Laterality: right Lung location: unspecified part of lung Qualified Code(s): C34.91 - Malignant neoplasm of unspecified part of right bronchus or lung
[2020-09-11] MEDS ORDERED: POLYETHYLENE (MIRALAX) 17 GM PACK PO PRN (17:01)
[2020-09-11] MEDS: oxyCODONE HCL IR 5 MG TAB (IMMEDIATE RELEASE) PO PRN (19:30)
--- NOTE | 2020-09-11 19:30 | Hospitalist Progress Note ---
Date of Service September 11, 2020 Assessment & Plan (1) Acute hypoxemic respiratory failure: Hx small cell lung cancer status post chemoradiation Nausea and Vomiting CVA (cerebral vascular accident) Anemia Patient not a candidate for any chemotherapy given declining status and multiple recurrent hospital admissions in the last year as per outpatient documentation Pt is established with home hospice care Palliative care on board Very anxious to go home, but there is no one to care for her at home. Her ex- checks on her couple time a day Refused to go to SNF for hospice care Currently required 4L NC oxygen supplement Case discussed with case management that said pt already had oxygen at home that can go up to 10L NC Continue comfort care only with oxycodone and Ativan She might consider to go to SNF with hospice for short stay Pneumonia CXR showed increase in right mid and lower lung airspace opacity. This favors pneumonia. Patient is not interested in antibiotic or any procedural intervention I offered her cough medicine, she refused it Continue comfort care only Continue oxygen supplement Disposition Consider SNF with hospice Contact: ex- (Mr. Abdiaziz Fowler, contact #[phone]) Admission and Anticipated Discharge Date Admission Date: September 10, 2020 Subjective Pt was seen and examined for follow up of nausea and vomiting Sitting at the edge of the bed with no distress Patient said that she feels much better today She said that her breathing is much better Currently on 4 L nasal cannula She spoke to the hospice nurse and agreed for possible to go to SNF for short stay until more help She said that she feels bloated and has not had a bowel movement for the last 2 days Denies any chest pain, palpitation, dizziness, fever Review of Systems Review of Systems: All systems reviewed & are unremarkable except as noted in Subjective Physical Exam Physical Exam: General- No acute distress Head- atraumatic Eyes- PERRL, EOMI, ENT- oropharynx clear Neck- supple, no JVD Lungs- clear to auscultation Heart- regular rhythm Abdomen- normal bowel sounds, soft, nontender Extremities- no calf tenderness Neuro- alert, oriented x 3; PERRL, EOMI; no facial palsy; no dysarthria Skin- warm & dry Results & Data Results & [facility] ([facility]) Vital Signs (Past 12 Hours) Vital Signs Temp Pulse Resp BP Pulse Ox 09/11/20 16:00 36.6 C 79 18 112/72 97
[2020-09-12] MEDS: MoRPHine SULFATE 4 MG/ML 1 ML CARP\\VIAL IV PRN ×7 (01:47→22:27)
[2020-09-12] MEDS: LORazepam 0.5 MG/1 ML VIAL IV PRN (04:55)
--- NOTE | 2020-09-12 13:52 | Palliative Care Progress Note ---
Date of Service September 12, 2020 Assessment & Plan (1) Back pain: Confusion possibly related to frequent morphine dosing in last 24 hours. She is awake and taking po. As pain is constant, will order routine oral oxycodone for more sustained relief for her pain. Will also add lidocaine patch as there is a specific area on her lower back that is painful for her. (2) Palliative care encounter: With her advanced lung cancer and progressive functional decline, focus of care is comfort. Unfortunately, she lives alone and does not have support at home. Her former is at bedside. We reviewed adjustment in pain medications. At this time he is approaching plans for her care on a day to day basis. If her condition were to plateau, we may need to consider SNF for comfort directed care. Palliative care will follow. (3) Lung cancer: Admission and Anticipated Discharge Date Admission Date: September 10, 2020 Subjective More confused today. Restless. Complaining of low back pain. She had multiple falls at home. She has had approximately 100mg OME in last 24 hours. Review of Systems Review of Systems: [place] Symptom Assessment Scale Pain 2/3 Dyspnea 0/3 Anxiety 1/3 Drowsiness 0/3 Palliative Performance Score 40% Physical Exam Constitutional: no acute distress Respiratory: normal respiratory effort; no labored breathing Musculoskeletal: tenderness to palpation, midline at L5 and S1, ecchymosis on right Skin: warm and dry Neurologic: awake and + confused Results & Data ([facility]) Vital Signs (Past 12 Hours) Vital Signs Temp Pulse Resp BP Pulse Ox 09/12/20 08:00 98.1 F 107 H 18 138/89 94 PG Care Time/CCT Total # of Minutes Spent Total Time Spent with Patient: Total time spent is greater than 50% in coordination of care (as documented) at patient's floor/unit and/or counseling patient: total time spent 35 minutes with more than 50% of time spent on symptom management, family education and support Coding Level of Care Code 50985 Subseq Hosp Care Lvl 3 Diagnoses Back pain M54.9 Palliative care encounter Z51.5 Lung cancer C34.91 Laterality: right Lung location: unspecified part of lung (1) Lung cancer Laterality: right Lung location: unspecified part of lung Qualified Code(s): C34.91 - Malignant neoplasm of unspecified part of right bronchus or lung
[2020-09-12] MEDS: ONDANSETRON 4 MG OD TAB SL SCH ×3 (15:14→22:29)
[2020-09-12] MEDS: oxyCODONE HCL IR 5 MG TAB (IMMEDIATE RELEASE) PO PRN ×2 (15:15→19:49)
--- NOTE | 2020-09-12 18:10 | Hospitalist Progress Note ---
Date of Service September 12, 2020 Assessment & Plan (1) Acute hypoxemic respiratory failure: Hx small cell lung cancer status post chemoradiation Nausea and Vomiting CVA (cerebral vascular accident) Anemia Patient not a candidate for any chemotherapy given declining status and multiple recurrent hospital admissions in the last year as per outpatient documentation Pt is established with home hospice care Palliative care on board Very anxious to go home, but there is no one to care for her at home. Her ex- checks on her couple time a day Refused to go to SNF for hospice care yesterday Today she feels very confused Currently required 4L NC oxygen supplement Case discussed with case management that said pt already had oxygen at home that can go up to 10L NC Continue comfort care only with oxycodone and Ativan Consider to go to SNF with hospice for short stay since patient will not be able to care for herself while in hospice/require narcotic Pneumonia CXR showed increase in right mid and lower lung airspace opacity. This favors pneumonia. Patient is not interested in antibiotic or any procedural intervention I offered her cough medicine, she refused it Continue comfort care only Continue oxygen supplement Disposition Consider SNF with hospice Contact: ex- (Mr. Abdiaziz Fowler, contact #[phone]) Admission and Anticipated Discharge Date Admission Date: September 10, 2020 Subjective Pt was seen and examined for comfort care Sitting on the edge of the bed with no distress, comfortable Patient is confused today mostly due to narcotic Continue require 4 L oxygen nasal cannula Denies any chest pain, palpitation, dizziness, fever Review of Systems Review of Systems: All systems reviewed & are unremarkable except as noted in Subjective Physical Exam Physical Exam: General- No acute distress Head- atraumatic Eyes- PERRL, EOMI, ENT- oropharynx clear Neck- supple, no JVD Lungs- clear to auscultation Heart- regular rhythm Abdomen- normal bowel sounds, soft, nontender Extremities- no calf tenderness Neuro- alert, oriented x 3; PERRL, EOMI; no facial palsy; no dysarthria Skin- warm & dry Results & Data Results & Data ([facility]) Vital Signs (Past 12 Hours) Vital Signs Temp Pulse Resp BP Pulse Ox 09/12/20 08:00 36.7 C 107 H 18 138/89 94
[2020-09-12] MEDS: LORazepam 0.5 MG TAB PO PRN ×2 (19:50→23:56)
[2020-09-13] MEDS: LORazepam 0.5 MG/1 ML VIAL IV PRN (01:29)
[2020-09-13] MEDS: ONDANSETRON 4 MG OD TAB SL SCH ×6 (01:54→21:04)
[2020-09-13] MEDS: LORazepam 0.5 MG TAB PO PRN ×2 (08:40→14:07)
[2020-09-13] MEDS: LIDOCAINE 5% 1 PATCH TD SCH (08:40)
[2020-09-13] MEDS: oxyCODONE HCL IR 5 MG TAB (IMMEDIATE RELEASE) PO PRN (08:48)
--- NOTE | 2020-09-13 14:05 | Palliative Care Progress Note ---
Date of Service September 13, 2020 Assessment & Plan (1) Palliative care encounter: (2) SOB (shortness of breath): Denies currently. She is getting opioids for pain which are also likely relieving air hunger. (3) Back pain: Improved with lidocaine patch and oxycodone. She has had one prn dose of IV morphine. I doubt that her confusion is opioid related as she has been on oxycodone for some time. Likely hospital related. I suspect that pain is also a factor if confused, she is not able to ask for medication. Will order routine dosing consistent with the amount of prn that she's been using and monitor. (4) Anxiety: Continue lorazepam prn Admission and Anticipated Discharge Date Admission Date: September 10, 2020 Subjective Restless, confused, complaining of terrible pain in her teeth. Denies back pain or shortness of breath. Review of Systems Review of Systems: [place] Symptom Assessment Scale Pain 2/3 Dyspnea 0/3 Anxiety 3/3 Fatigue 2/3 Nausea 0/3 Palliative Performance Score 40% Physical Exam Constitutional: + in distress ENMT: poor dentition, dry mucous membranes Respiratory: normal respiratory effort; no labored breathing Musculoskeletal: Extremities: extremities normal to inspection Neurologic: + confused Psychiatric: Orientation: + not oriented to place and + not oriented to time Results & Data ([facility]) Vital Signs (Past 12 Hours) Vital Signs Temp Pulse Resp BP Pulse Ox 09/13/20 08:31 98.2 F 117 H 20 167/95 H 95 PG Care Time/CCT Total # of Minutes Spent Total Time Spent with Patient: Total time spent is greater than 50% in coordination of care (as documented) at patient's floor/unit and/or counseling patient: Coding Level of Care Code 60321 Subseq Hosp Care Lvl 2 Diagnoses Palliative care encounter Z51.5 SOB (shortness of breath) R06.02 Back pain M54.9 Anxiety F41.9
[2020-09-13] MEDS: oxyCODONE HCL IR 5 MG TAB (IMMEDIATE RELEASE) PO SCH ×2 (14:08→21:05)
[2020-09-13] MEDS: MoRPHine SULFATE 4 MG/ML 1 ML CARP\\VIAL IV PRN (16:18)
--- NOTE | 2020-09-13 19:13 | Hospitalist Progress Note ---
Date of Service September 13, 2020 Assessment & Plan (1) Acute hypoxemic respiratory failure: Hx small cell lung cancer status post chemoradiation Nausea and Vomiting CVA (cerebral vascular accident) Anemia Patient not a candidate for any chemotherapy given declining status and multiple recurrent hospital admissions in the last year as per outpatient documentation Pt is established with home hospice care Palliative care on board Very anxious to go home, but there is no one to care for her at home. Her ex- checks on her couple time a day Refused to go to SNF for hospice care yesterday Today she feels very confused Currently required 4L NC oxygen supplement Case discussed with case management that said pt already had oxygen at home that can go up to 10L NC Continue comfort care only with oxycodone and Ativan Consider to go to SNF with hospice for short stay since patient will not be able to care for herself while in hospice/require narcotic Pneumonia CXR showed increase in right mid and lower lung airspace opacity. This favors pneumonia. Patient is not interested in antibiotic or any procedural intervention I offered her cough medicine, she refused it Continue comfort care only Continue oxygen supplement Disposition Consider SNF with hospice Contact: ex- (Mr. Abdiaziz Fowler, contact #[phone]) Admission and Anticipated Discharge Date Admission Date: September 10, 2020 Subjective Pt was seen and examined for comfort care Lying in bed with no distress, comfortable Patient is confused Continue require 4 L oxygen nasal cannula Denies any chest pain, palpitation, dizziness, fever Review of Systems Review of Systems: All systems reviewed & are unremarkable except as noted in Subjective Physical Exam Physical Exam: General- No acute distress Head- atraumatic Eyes- PERRL, EOMI, ENT- oropharynx clear Neck- supple, no JVD Lungs- clear to auscultation Heart- regular rhythm Abdomen- normal bowel sounds, soft, nontender Extremities- no calf tenderness Neuro- alert, oriented x 3; PERRL, EOMI; no facial palsy; no dysarthria Skin- warm & dry Results & Data Results & Data ([facility]) Vital Signs (Past 12 Hours) Vital Signs Temp Pulse Resp BP Pulse Ox 09/13/20 15:41 36.7 C 116 H 18 153/105 H 95 09/13/20 08:31 36.8 C 117 H 20 167/95 H 95
[2020-09-14] MEDS: oxyCODONE HCL IR 5 MG TAB (IMMEDIATE RELEASE) PO SCH ×4 (02:22→21:05)
[2020-09-14] MEDS: ONDANSETRON 4 MG OD TAB SL SCH ×6 (02:22→22:23)
[2020-09-14] MEDS: LIDOCAINE 5% 1 PATCH TD SCH (09:44)
--- NOTE | 2020-09-14 10:19 | Palliative Care Progress Note ---
Date of Service September 14, 2020 Assessment & Plan (1) Palliative care encounter: With her advanced lung cancer and progressive functional decline, focus of care is comfort. Unfortunately, she lives alone and does not have support at home. Al was not present during my visit. I did call him and leave him a VM. I know he works much of the day. If her condition were to plateau, we may need to consider SNF for comfort directed care, which Hospice has been collaborating and navigating. Palliative care will follow. (2) SOB (shortness of breath): Denies currently. She is getting opioids for pain which are also likely relieving air hunger. She is requiring 5 LNC at this time, increasing slightly over past few days. (3) Back pain: Improved with lidocaine patch and scheduled Q4 oxycodone. She has had one prn dose of IV morphine over the past 24 hours. (4) Anxiety: Continue lorazepam prn. She has taken two doses over past 24 hours. I was going to consider scheduling her Ativan. [facility] recommends Seroquel 12.5 mg PO BID which I did order today. Will monitor and hold on routine Ativan. Admission and Anticipated Discharge Date Admission Date: September 10, 2020 Subjective Pt was seen and examined for comfort care Lying in bed with increased confusion lying on her left side Her o2 requirements have increased slightly, now on 5LNC. See A/P for further details. Review of Systems Review of Systems: [place] Symptom Assessment Scale Pain 2/3 Dyspnea 0/3 Anxiety 3/3 Fatigue 2/3 Nausea 0/3 Palliative Performance Score 40% Physical Exam Constitutional: + acute distress, + frail appearing and cooperative ENMT: Nose: + dry nasal mucous membranes Respiratory: + pursed lip breathing Auscultation: + diminished lung sounds Cardiovascular: Rate/Rhythm: regular rate and regular rhythm Heart Sounds: normal S1 and normal S2 Extremities: normal capillary refill Gastrointestinal (Abdomen): Percussion/Palpation: abdomen soft; abdomen nontender Skin: + ecchymosis and + pallor Psychiatric: A+Ox3, euthymic affect Results & Data ([facility]) Vital Signs (Past 12 Hours) Vital Signs Temp Pulse Resp BP Pulse Ox 09/14/20 08:48 37.0 C 101 H 16 120/82 97 PG Care Time/CCT Total # of Minutes Spent Total Time Spent with Patient: Total time spent is greater than 50% in coord ination of care (as documented) at patient's floor/unit and/or counseling patient: 35 minutes with > 50% of that time spent assessing the patient, discussing goals of care with patient, adjusting symptom management needs, and collaborating with IDT Coding Level of Care Code 67173 Subseq Hosp Care Lvl 3 Diagnoses Palliative care encounter Z51.5 SOB (shortness of breath) R06.02 Back pain M54.9 Anxiety F41.9 Time Spent (min) 35
[2020-09-14] MEDS: QUEtiapine FUMARATE 25 MG TABLET PO SCH ×2 (11:00→21:05)
[2020-09-14] MEDS: LORazepam 0.5 MG TAB PO PRN (14:42)
--- NOTE | 2020-09-14 19:54 | Hospitalist Progress Note ---
Date of Service September 14, 2020 Assessment & Plan (1) Acute hypoxemic respiratory failure: Hx small cell lung cancer status post chemoradiation Nausea and Vomiting CVA (cerebral vascular accident) Anemia Patient not a candidate for any chemotherapy given declining status and multiple recurrent hospital admissions in the last year as per outpatient documentation Pt is established with home hospice care Palliative care on board Very anxious to go home, but there is no one to care for her at home. Her ex- checks on her couple time a day Refused to go to SNF for hospice care yesterday Today she feels very confused Currently required 4L NC oxygen supplement Case discussed with case management that said pt already had oxygen at home that can go up to 10L NC Continue comfort care only with oxycodone and Ativan Consider to go to SNF with hospice for short stay since patient will not be able to care for herself while in hospice/require narcotic Case management said that might have a bed to go to SNF but waiting for ex- decision Waiting for placement Pneumonia CXR showed increase in right mid and lower lung airspace opacity. This favors pneumonia. Patient is not interested in antibiotic or any procedural intervention I offered her cough medicine, she refused it Continue comfort care only Continue oxygen supplement Disposition Waiting for placement with SNF with hospice Contact: ex- (Mr. Abdiaziz Fowler, contact #[phone]) Admission and Anticipated Discharge Date Admission Date: September 10, 2020 Subjective Pt was seen and examined for comfort care Lying in bed with no distress Looks comfortable Continue oxygen supplement Denies any chest pain, palpitation, dizziness and SOB . Review of Systems Review of Systems: All systems reviewed & are unremarkable except as noted in Subjective Physical Exam Physical Exam: General- No acute distress Head- atraumatic Eyes- PERRL, EOMI, ENT- oropharynx clear Neck- supple, no JVD Lungs- clear to auscultation Heart- regular rhythm Abdomen- normal bowel sounds, soft, nontender Extremities- no calf tenderness Neuro- alert, oriented x 3; PERRL, EOMI; no facial palsy; no dysarthria Skin- warm & dry Results & Data Results & Data ([facility]) Vital Signs (Past 12 Hours) Vital Signs Temp Pulse Resp BP Pulse Ox 09/14/20 08:48 37.0 C 101 H 16 120/82 97
[2020-09-15] MEDS: oxyCODONE HCL IR 5 MG TAB (IMMEDIATE RELEASE) PO SCH ×3 (02:01→13:29)
[2020-09-15] MEDS: ONDANSETRON 4 MG OD TAB SL SCH ×4 (02:01→13:29)
--- NOTE | 2020-09-15 08:38 | Hospitalist Progress Note ---
Date of Service September 15, 2020 Assessment & Plan (1) Acute hypoxemic respiratory failure: Hx small cell lung cancer status post chemoradiation Nausea and Vomiting CVA (cerebral vascular accident) Anemia Patient not a candidate for any chemotherapy given declining status and multiple recurrent hospital admissions in the last year as per outpatient documentation Pt is established with home hospice care Palliative care on board Very anxious to go home, but there is no one to care for her at home. Her ex- checks on her couple time a day Refused to go to SNF for hospice care initially Yesterday reportedly confused but seems to answer appropriately today Currently required 4-5L NC oxygen supplement Case discussed with case management that said pt already had oxygen at home that can go up to 10L NC Continue comfort care only with oxycodone and Ativan Consider to go to SNF with hospice for short stay since patient will not be able to care for herself while in hospice/require narcotic Case management said that might have a bed to go to SNF but waiting for ex- decision Waiting for placement Plan to discharge to [facility] today Per [facility] hospice recommendations, patient was started here on Seroquel Pneumonia CXR showed increase in right mid and lower lung airspace opacity. This favors pneumonia. Patient is not interested in antibiotic or any procedural intervention offered her cough medicine, she refused it Continue comfort care only Continue oxygen supplement Disposition Plan to DC to SNF with hospice - [facility] today Contact: ex- (Mr. Abdiaziz Fowler, contact #[phone]) Admission and Anticipated Discharge Date Admission Date: September 10, 2020 Subjective Pt was seen and examined for comfort care -history of small cell lung cancer, hypoxic respiratory failure Lying in bed with no distress Looks comfortable Continue oxygen supplement Denies any chest pain, palpitation, dizziness and SOB . Plan to DC to [facility] today Review of Systems Review of Systems: All systems reviewed & are unremarkable except as noted in HPI & below Constitutional: no fever and no chills Respiratory: + dyspnea (improved) Cardiovascular: no chest pain and no palpitations Gastrointestinal: no abdominal pain, no nausea and no vomiting Physical Exam Physical Exam: General- No acute distress, on suppl. O2 Head- atraumatic Eyes- PERRL, EOMI, ENT- oropharynx clear Neck- supple, no JVD Lungs- clear to auscultation Heart- regular rhythm Abdomen- normal bowel sounds, soft, nontender Extremities- no calf tenderness, moves extremities Neuro- alert, oriented x 3; PERRL, EOMI; no facial palsy; no dysarthria Skin- warm & dry
[2020-09-15] MEDS: LIDOCAINE 5% 1 PATCH TD SCH (08:39)
[2020-09-15] MEDS: QUEtiapine FUMARATE 25 MG TABLET PO SCH (08:39)
--- NOTE | 2020-09-15 11:36 | Discharge Summary ---
Date of Service September 15, 2020 Admission HPI Per Admitting Provider History obtained from patient and records. Patient is a fair historian. Medical history significant for CVA, orthostatic hypotension on fludrocortisone/midodrine Rx, small cell lung cancer sp chemoradiation, mood disorder, chronic back pain secondary to thoracic compression fracture, chronic anemia (baseline hemoglobin 8), RUE DVT on Eliquis, past tobacco abuse. Multiple recurrent [facility] admissions since May 2020. Last confinement last week for abdominal pain. Patient to consider palliative care/hospice as per documentation. Patient not a candidate for any kind of systemic chemotherapy as per recent outpatient Oncology note from 3 days ago. Patient enrolled at home hospice few days ago. 2 days history of junky cough, worsening shortness of breath without fever, chills. Chest pain from coughing as per patient. Patient admits to some nausea and vomiting symptoms. Patient denies aspiration. Patient denies fluid retention. At the ER, O2 sats 80s at some point. BiPAP initiated at the ER. 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 Admission Exam Per Admitting Provider GENERAL: uncomfortable, chronically ill, minimal respiratory distress SKIN: Pallor , warm HEENT: Pale palpebral conjunctivae, no ptosis, dry buccal mucosa, BiPAP in place NECK : Supple, no tenderness CHEST : Decreased breath sounds, no tenderness HEART : RRR, no obvious murmurs ABDOMEN: Some distention, nontender EXTREMITIES : No LE swelling/tenderness, no other conspicuous deformities noted NEUROLOGIC : Coherent, no facial asymmetry, no other gross focality Principal Diagnosis Small cell lung cancer Respiratory failure, hypoxic Likely pneumonia Comfort measures Discharge Exam General- No acute distress, on suppl. O2 Head- atraumatic Eyes- PERRL, EOMI, ENT- oropharynx clear Neck- supple, no JVD Lungs- clear to auscultation Heart- regular rhythm Abdomen- normal bowel sounds, soft, nontender Extremities- no calf tenderness, moves extremities Neuro- alert, oriented x 3; PERRL, EOMI; no facial palsy; no dysarthria Skin- warm & dry Discharge Data Allergies Allergy/AdvReac Type Severity Reaction Status Date / Time mushroom Allergy Severe anaphylaxis Verified 06/03/21 22:38 Penicillins Allergy Severe anaphylaxis, Verified 09/09/20 22:38 facial & throat swelling acetazolamide Allergy Intermediate rash, hives Verified 09/09/20 22:38 mold Allergy Unknown unknown Verified 09/09/20 22:38 reaction sumatriptan AdvReac Intermediate flushing, Verified 09/09/20 22:38 heart racing Consultations 09/09/20 23:26 ED Decision to Admit Stat 09/10/20 01:23 Consult Palliative Care Routine Hospital Course (1) Acute hypoxemic respiratory failure: Hx small cell lung cancer status post chemoradiation Nausea and Vomiting CVA (cerebral vascular accident) Anemia Patient not a candidate for any chemotherapy given declining status and multiple recurrent hospital admissions in the last year as per outpatient documentation Pt is established with home hospice care Palliative care on board Very anxious to go home, but there is no one to care for her at home. Her ex- checks on her couple time a day Refused to go to SNF for hospice care initially Yesterday reportedly confused but seems to answer appropriately today Currently required 4-5L NC oxygen supplement Case discussed with case management that said pt already had oxygen at home that can go up to 10L NC Continue comfort care only with oxycodone and Ativan Consider to go to SNF with hospice for short stay since patient will not be able to care for herself while in hospice/require narcotic Case management said that might have a bed to go to SNF but waiting for ex- decision Waiting for placement Plan to discharge to [facility] today Per [facility] hospice recommendations, patient was started here on Seroquel Pneumonia CXR showed increase in right mid and lower lung airspace opacity. This favors pneumonia. Patient is not interested in antibiotic or any procedural intervention offered her cough medicine, she refused it Continue comfort care only Continue oxygen supplement Disposition Plan to DC to SNF with hospice - [facility] today Contact: ex- (Mr. Abdiaziz Fowler, contact #[phone]) Total Time Total Time Spent Total Time Spent (In Minutes): 35 Total Time Includes: Examination of the Patient, Discharge Planning, Medication Reconciliation and Communication With Other Providers Discharge Plan Discharge Items Patient Disposition: Transfer Custodial Fac Reason For Visit: RESP FAILURE, COMFORT MEASURES Discharge Diagnosis: Small cell lung cancer Respiratory failure, hypoxic Likely pneumonia Comfort measures Condition on Discharge: Serious Activity: Per Instructions section Non-emergency contact: Primary Care Provider Call non-emergency contact if: you have any medication questions and your symptoms worsen Follow-up/Referrals: Hany Glaser MD [Primary Care Provider] - Diet: Low Fiber Diet Texture: Easy to Chew Addtl Attending Provider Instructions: Patient was readmitted for respiratory failure, secondary to small cell lung cancer. Palliative medicine consulted, plan to discharge patient to [facility] for hospice care. Several medications were discontinued, discuss further with your hospice care team which medications are helpful. You were started on a new medication, Seroquel. Pending Studies at Discharge: No Stand-Alone Forms: My [facility] Skilled Items Patient informed of condition?: Yes DNR: Yes Discharge Level of Care: Skilled Communicable Disease: No Discharge Prognosis: Deteriorating Lines: None Urinary Catheter: No Medications and DC Order Prescriptions: New quetiapine 25 mg Tablet 12.5 mg PO BID 30 Days Qty: 30 RF: 0 lorazepam 0.5 mg Tablet 0.5 mg PO Q4H PRN (Reason: anxiety) Qty: 5 RF: 0 Continued albuterol sulfate 90 mcg/actuation HFA aerosol inhaler 2 puff INH Q6H PRN (Reason: Shortness Of Breath Or Wheezing) Qty: 18 RF: 3 omeprazole 20 mg capsule,delayed release(DR/EC) 20 mg PO BID 30 Days Qty: 60 RF: 3 ondansetron 8 mg tablet,disintegrating 8 mg PO Q8H PRN (Reason: Nausea And Vomiting) RF: 0 Anoro Ellipta 62.5-25 mcg/actuation blister with device 1 puffs INH QAM RF: 0 acetaminophen [Tylenol] 325 mg Tablet 325 - 650 mg PO DIRECTED PRN (Reason: FEVER/PAIN) RF: 0 oxycodone 10 mg Tablet 5 mg PO Q6H PRN (Reason: Pain, Moderate) Qty: 0 RF: 0 docusate sodium 100 mg Capsule 100 mg PO BID Qty: 60 RF: 0 polyethylene glycol 3350 [ClearLax] 17 gram/dose powder 17 g PO DAILY Qty: 238 RF: 0 lidocaine 5 % Adhesive Patch,Medicated 1 patch transdermal HS PRN (Reason: Pain) Qty: 30 RF: 0 Discontinued duloxetine 60 mg capsule,delayed release(DR/EC) 60 mg PO QAM RF: 0 magnesium oxide 400 mg (241.3 mg magnesium) Tablet 400 mg PO BID Qty: 60 RF: 0 atorvastatin 40 mg tablet 40 mg PO HS RF: 0 fludrocortisone 0.1 mg tablet 0.1 mg PO BID RF: 0 Phospha 250 Neutral 250 mg tablet 1 tab PO BID Qty: 30 RF: 0 hydroxyzine HCl 50 mg Tablet 50 mg PO DAILY PRN (Reason: Anxiety) RF: 0 multivitamin-calcium carb Tablet,Chewable 1 tab PO DAILY RF: 0 midodrine 2.5 mg tablet 2.5 mg PO TID RF: 0 gabapentin 100 mg capsule 100 mg PO BID Qty: 0 RF: 0 Eliquis 2.5 mg tablet 2.5 mg PO BID RF: 0 cyclobenzaprine 10 mg tablet 10 mg PO TID PRN (Reason: Muscle Spasm) RF: 0 aspirin 81 mg Tablet,Delayed Release (Dr/Ec) 81 mg PO QAM Qty: 90 RF: 0 Discharge Orders: Discharge Order (Routine); Ordered 09/15/20 Ordered By: Pedrito Gaston Admission Data Admit Date/Time: 09/10/20 00:05 Attending Provider: Pedrito Gaston Admit Provider: Joe Goldsmith Primary Care Provider: Hany Glaser Other Providers: Joe Goldsmith ; Sharon Castaneda ; [facility],Home Healthcare ; [place],Care ; [facility], ; Shefali Acharya
== END 2020-09-15 16:28 | disposition hospice, inpatient (51) | DRG 189 ==
LOC: ED 21:12 → SUATTDRO 09-10 00:05 → 3W 09-10 00:05